=== PATIENT | male | born 1955 | race Caucasian/White ===

== ENCOUNTER → 2016-06-24 | Outpatient (CLI) | payer OTHER ==
[~2016-06-24] MED LIST: ALL100 PO; ASPEC81 PO; ASPI81TA28 PO; ATOR-24 PO; BIOF500C2 PO; BROM0.0911 OPR; COEN100C7 PO; CYAN10005 PO; GLIM2TAB2 PO; IMD/2 PO; KRIL1CAP7 PO; LEVO50TA PO; LEVO50TA6 PO; LISI-729 PO; LPT40 PO; MULT-506 PO; OFLO0.3S OP; OMEG10007 PO; PRED1SUS3 OPR; SACC250C11; [UNRECOGNIZED DRUG - CODE] PO
--- NOTE | 2016-06-24 10:16 | DIAGNOSTIC IMAGING REPORT ---
ABDOMEN COMPLETE (US) CLINICAL HISTORY: CLL COMPARISON STUDY: 01/19/2014, CT scan dated 11/17/2015 FINDINGS: The liver measures 18 cm in length. No focal hepatic masses are visualized. No gallstones are identified. The gallbladder appears sonographically normal. The pancreas appears sonographically normal. There is no ductal dilatation. The common bile duct measures 5 mm. The spleen measures 11 cm in length. No splenic masses are visualized. The 15 mm hypodense lesion described in the spleen on the CT scan dated 11/17/2015 is not visible. The right kidney measures 10.1 cm in length. The left kidney measures 11.4 cm in length. No renal masses are visualized. There is no evidence of hydronephrosis. There is no evidence of abdominal aortic dilatation. IMPRESSION: Normal abdominal ultrasound. Electronically signed by: Ambrsoio Tierney M.D. 06/24/2016 10:14 AM Dictated Date/Time: 06/24/2016 10:12 AM
== END | disposition home or self-care (01) ==
LOC: C.ULTR 09:31
PROVIDERS: ATTEND Internal Medicine Hematology & Oncology
DX: C91.10 Chronic lymphocytic leukemia of B-cell type not having achieved remission (principal)

== ENCOUNTER → 2016-07-04 | Outpatient (CLI) | payer OTHER ==
--- NOTE | 2016-07-04 12:34 | DIAGNOSTIC IMAGING REPORT ---
CHEST 2 VIEWS ROUTINE CLINICAL HISTORY: CLL neoplasm COMPARISON STUDY: 02/23/2016 FINDINGS: Central catheter in superior vena cava. Lungs are considered clear. No evidence for cardiac enlargement. Diaphragms are smooth. IMPRESSION: No acute process. Electronically signed by: Jorge Haney M.D. 07/04/2016 12:32 PM Dictated Date/Time: 07/04/2016 12:32 PM
== END | disposition home or self-care (01) ==
LOC: C.RAD 11:38
PROVIDERS: ATTEND Internal Medicine Hematology & Oncology
DX: C91.10 Chronic lymphocytic leukemia of B-cell type not having achieved remission (principal)

== ENCOUNTER → 2016-08-07 | Day surgery (SDC) | payer OTHER ==
[2016-07-26 10:06] VITALS: BMI 36.0
[2016-07-31 09:46] VITALS: Ht 177.8 cm; Wt 117.7 kg
--- NOTE | 2016-07-31 10:16 | PAT Medication Instructions ---
Service Date Jul 31, 2016. Current Home Medication List Allopurinol (Allopurinol), 1 TAB PO QAM Aspirin (Aspirin EC Low Dose), 81 MG PO QAM Atorvastatin (Lipitor), 40 MG PO QAM Coenzyme Q10 (Ubidecarenone) (Coq10), 1 CAP PO QPM Cyanocobalamin (Vitamin B-12), 1,000 MCG PO QAM Fish Oil (Canterbury-3), 1 CAP PO QPM Glimepiride (Glimepiride), 4 MG PO QAM Idelalisib (Zydelig), 150 MG PO BID Krill Oil (Krill Oil Canterbury-3), 1 CAP PO QAM Levothyroxine Sodium (Levothyroxine Sodium), 50 MCG PO 4XWK Levothyroxine Sodium (Synthroid), 25 MCG PO MWF Lisinopril (Prinivil), 5 MG PO QAM Loperamide Hcl (Imodium), 2 MG PO PRN PRN for Diarrhea Multivitamin (Multivitamin), 1 TAB PO QPM Saccharomyces Boulardii (Probiotic), Unknown Dose Medication Instructions For Your Scheduled Surgery - Hold the following medications as of 07/31/16: Fish Oil (Canterbury-3), 1 CAP PO QPM Coenzyme Q10 (Ubidecarenone) (Coq10), 1 CAP PO QPM Krill Oil (Krill Oil Canterbury-3), 1 CAP PO QAM - Hold the following medications the morning of surgery: Cyanocobalamin (Vitamin B-12), 1,000 MCG PO QAM Glimepiride (Glimepiride), 4 MG PO QAM Lisinopril (Prinivil), 5 MG PO QAM Loperamide Hcl (Imodium), 2 MG PO PRN PRN for Diarrhea Saccharomyces Boulardii (Probiotic), Unknown Dose - Take the following medications the morning of surgery with a sip of water OTHERWISE NOTHING TO EAT OR DRINK AFTER MIDNIGHT: Allopurinol (Allopurinol), 1 TAB PO QAM Aspirin (Aspirin EC Low Dose), 81 MG PO QAM Atorvastatin (Lipitor), 40 MG PO QAM Idelalisib (Zydelig), 150 MG PO BID Levothyroxine Sodium (Synthroid) - Take the following medications as scheduled the night before surgery: Multivitamin (Multivitamin), 1 TAB PO QPM Loperamide Hcl (Imodium), 2 MG PO PRN for Diarrhea Idelalisib (Zydelig), 150 MG PO BID If you have any questions please call us at [phone] or [phone] or [phone]
[~2016-08-07] VITALS: Ht 177.8 cm; Wt 117.7 kg
[~2016-08-07] MED LIST changes: +500ML BSS 0.3ML EPI 1:1000PF IRRIG ONE; +ACETAMINOPHEN 325 MG TAB PO PRN; +AMVISC PLUS 0.8ML SYRINGE INT OCU ONE; +ATROPINE SULFATE 0.1 MG/ML 5ML SYR IV PRN; -BIOF500C2 PO; +BSS FLUSH ONE; +ENDOCOAT 0.85ML SYRINGE INT OCU ONE; +EpHEDrine SULFATE INJ 50 MG/ML AMP IV PRN; +EpINEphrine INJ 1MG/ML AMP 1 MG/ML AMP ONE; +LACTATED RINGER'S 1000ML 500 ML IV SCH; +LIDOCAINE 4% OP SOLN DROP CHARGE ONE; +LIDOCAINE 4% OP SOLN DROP CHARGE OPR SCH; +LIDOCAINE HCL 1% MPF 2 ML VIAL ONE; -LPT40 PO; +MIDAZOLAM HCL 1 MG/ML 2ML VIAL ONE; +MIX: 4ML BSS 1ML EPI 1:1000 PF TOP ONE; +MOXIFLOXACIN OPH SOLN PER DROP CHARGE ONE; +POVIDONE-IODINE OP SOLN 30 ML BTL ONE; +PROPARACAINE 0.5% OP SOLN PER DROP CHARGE OPR SCH; +TOBRAMYCIN/DEXAMETHASONE OPH OINT PER APPLN CHARGE ONE
[2016-08-07] MEDS: PHENYLEPHRINE HCL 2.5% OP SOLN PER DROP CHARGE OPR SCH ×3 (07:52→08:02)
[2016-08-07] MEDS: TROPICAMIDE 1% OP SOLN PER DROP CHARGE OPR SCH ×3 (07:53→08:03)
[2016-08-07] MEDS: CYCLOPENTOLATE HCL 1% OP SOLN PER DROP CHARGE OPR SCH ×3 (07:54→08:05)
[2016-08-07] MEDS: MOXIFLOXACIN OPH SOLN PER DROP CHARGE OPR SCH ×3 (07:55→08:06)
--- NOTE | 2016-08-07 08:06 | History & Physical Bridge - SC ---
H&P Re-Evaluation Bridge Note: I have examined the patient, reviewed the History & Physical and in the interval since the performance of the History & Physical I have noted the following changes of clinical significance: No changes noted
--- NOTE | 2016-08-07 09:20 | [facility] Post Operative Brief Note ---
Immediate Operative Summary Operative Date Aug 07, 2016. Pre-Operative Diagnosis Right Eye Cataract Post-Operative Diagnosis same Procedure(s) Performed Right Cataract Phacoemulsification With Intraocular Lens Implant Surgeon Dr. 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
--- NOTE | 2016-08-07 09:21 | [facility] Operative Report ---
Operative Report Date of Service Aug 07, 2016. Operative Report Phaco with monofocal IOL DATE OF OPERATION: 08/07/16 PREOPERATIVE DIAGNOSIS: Senile nuclear cataract, right eye POSTOPERATIVE DIAGNOSIS: Senile nuclear cataract, right eye PROCEDURE PERFORMED: Phacoemulsification with intraocular lens implantation, right eye SURGEON: Dr. Vicente Cosme ANESTHESIA: Topical with 1% intracameral lidocaine and monitored anesthesia care COMPLICATIONS: None DESCRIPTION OF PROCEDURE: After positively identifying the patient both verbally and by wristband in the preoperative area, the right eye was marked as the operative eye. The patient was then brought back to the operating room by the anesthesia and nursing staff where they were given a drop of Lidocaine and betadine into the operative eye. They were then sterilely prepped and draped in the standard fashion typical for ophthalmic surgery. Steri-strips were placed along the upper eyelids to keep the lashes back, and a lid speculum was placed into the operative eye. At this point, a documented time out was performed with members of the ophthalmology, nursing, and anesthesia staffs all agreeing upon the correct patient, correct location for surgery, correct procedure, and correct type and power of intraocular lens to be implanted. The microscope was then swung into position. First, a paracentesis wound was made using a sideport blade. Then, in sequence, 1% preservative-free lidocaine followed by Endocoat viscoelastic was injected into the anterior chamber. Next , the main incision was made with a keratome blade in triplanar fashion. A sharp cystotome was introduced into the eye and used to create a tear in the anterior capsule, which was directed into a continuous curvilinear capsulorrhexis using Utrata forceps. Hydrodissection was then performed with BSS on a flat-tip cannula. Next, the phacoemulsification handpiece was introduced into the eye and used to remove the nucleus in a [id number] fashion. This was done without complication and then the irrigation-aspiration handpiece was introduced into the eye and used to remove all remaining cortical and epinuclear material. Amvisc was then injected into the anterior chamber as well as into the capsular bag and using the lens injector system, an MX60 18.5 D lens, serial number [id number], and expiration date 11/2018 was injected into the capsular bag and rotated into the correct position. Next, the irrigation- aspiration handpiece was used to remove all remaining Amvisc. BSS was used to hydrate the main wound, and then BSS was injected into the paracentesis site to reach physiologic pressure and then the main wound was checked and found to be watertight. The patient was given drops of Vigamox and Tobradex ointment into the operative eye, and then the surrounding area was cleaned and dried. A clear plastic shield was placed over the eye and the patient was then sat up and taken from the operating room by the anesthesia staff having tolerated the procedure well and suffering no complications. DISPOSITION: The patient was returned to the recovery room in stable condition. I attest to the content of the Intraoperative Record and any orders documented therein. Any exceptions are noted below.
--- NOTE | 2016-08-07 09:22 | Discharge Instructions-SurgCtr ---
Discharge Instructions Date of Service Aug 07, 2016. Visit Reason for Visit: Cataract Right Eye Discharge Discharge Diagnosis / Problem: right cataract Discharge Goals Goal(s): Decrease discomfort, Improve function Medications Stopped Medications Name(s): FISH OIL, KRILL OIL, CO Q10. Activity Recommendations Activity Limitations: as noted below Anesthesia . Post Anesthesia Instructions: If you have had General Anesthesia or IV Sedation: * Do not drive today. * Resume driving when surgeon permits. * Do not make important decisions or sign legal documents today. * Call surgeon for: 1. Temperature elevations greater than 101 degrees F. 2. Uncontrollable pain. 3. Excessive bleeding. 4. Persistent nausea and vomiting. 5. Medication intolerance (nausea, vomiting or rash). * For nausea and vomiting use only clear liquids such as: tea, soda, bouillon until nausea subsides, then gradually increase diet as tolerated. * If you have any concerns or questions, call your surgeon's office. If physician is unavailable and it is an emergency, call 911 or go to the nearest emergency room. . Instructions / Follow-Up Instructions / Follow-Up ACTIVITY RECOMMENDATIONS: * Light activities. * You may walk outside, read, watch television. * You may notice redness on the white part of the eye and some blurry vision - this is normal. MEDICATIONS: Resume previous medications unless instructed otherwise by your surgeon. Start all eye drops at 11:30 am today: * Eye drops (today): Prednisone - one drop in operative eye every 2 hours while awake Ofloxacin - one drop in operative eye every 2 hours while awake Bromfenac - one drop in operative eye daily SPECIAL CARE INSTRUCTIONS: * Tape plastic shield over eye to sleep at night. Call your doctor at with any concerns or problems. FOLLOW UP VISIT: Follow-up with Dr Cosme at [place] office as scheduled. Diet Recommendations Home Diet: no limitations Procedures Procedures Performed: Right Cataract Phacoemulsification With Intraocular Lens Implant Pending Studies Studies pending at discharge: no Medical Emergencies . Who to Call and When: Medical Emergencies: If at any time you feel your situation is an emergency, please call 911 immediately. . Non-Emergent Contact Non-Emergency issues call your: Surgeon . . "Provider Documentation" section prepared by Vicente Cosme.
--- NOTE | 2016-08-07 09:34 | Anesthesia Progress Nt - [facility] ---
Anesthesia Post Op Note Date & Time Aug 07, 2016 at 09:35 Vital Signs Pain Intensity: 0 Vital Signs Past 12 Hours Date Time Temp Pulse Resp B/P Pulse Ox O2 Delivery O2 Flow Rate FiO2 08/07/16 09:24 36.5 68 18 136/88 95 Room Air 08/07/16 07:42 36.5 69 20 135/83 95 Room Air Notes Mental Status: alert / awake / arousable, participated in evaluation Pt Amnestic to Procedure: Yes Nausea / Vomiting: adequately controlled Pain: adequately controlled Airway Patency, RR, SpO2: stable & adequate BP & HR: stable & adequate Hydration State: stable & adequate Anesthetic Complications: no major complications apparent
[2016-08-07 09:46] VITALS: BP 134/82; PULSE 62; O2SAT 95
== END | disposition home or self-care (01) ==
LOC: X.SURG 07:27
PROVIDERS: ATTEND Ophthalmology
DX: H25.11 Age-related nuclear cataract, right eye (principal); E11.9 Type 2 diabetes mellitus without complications; Z86.73 Personal history of transient ischemic attack (TIA), and cerebral infarction without residual deficits

== ENCOUNTER → 2016-09-03 | Outpatient (CLI) | payer OTHER ==
[~2016-09-03] MED LIST changes: -500ML BSS 0.3ML EPI 1:1000PF IRRIG ONE; -ACETAMINOPHEN 325 MG TAB PO PRN; -AMVISC PLUS 0.8ML SYRINGE INT OCU ONE; -ASPEC81 PO; -ATROPINE SULFATE 0.1 MG/ML 5ML SYR IV PRN; -BSS FLUSH ONE; -ENDOCOAT 0.85ML SYRINGE INT OCU ONE; -EpHEDrine SULFATE INJ 50 MG/ML AMP IV PRN; -EpINEphrine INJ 1MG/ML AMP 1 MG/ML AMP ONE; -LACTATED RINGER'S 1000ML 500 ML IV SCH; -LIDOCAINE 4% OP SOLN DROP CHARGE ONE; -LIDOCAINE 4% OP SOLN DROP CHARGE OPR SCH; -LIDOCAINE HCL 1% MPF 2 ML VIAL ONE; -MIDAZOLAM HCL 1 MG/ML 2ML VIAL ONE; -MIX: 4ML BSS 1ML EPI 1:1000 PF TOP ONE; -MOXIFLOXACIN OPH SOLN PER DROP CHARGE ONE; -OFLO0.3S OP; -POVIDONE-IODINE OP SOLN 30 ML BTL ONE; -PROPARACAINE 0.5% OP SOLN PER DROP CHARGE OPR SCH; -TOBRAMYCIN/DEXAMETHASONE OPH OINT PER APPLN CHARGE ONE
--- NOTE | 2016-09-03 16:51 | DIAGNOSTIC IMAGING REPORT ---
CHEST 2 VIEWS ROUTINE CLINICAL HISTORY: ACUTE BRONCHITIS dyspnea COMPARISON STUDY: 07/04/2016 FINDINGS: The bones soft tissues and hemidiaphragms are normal. The cardiomediastinal silhouette is normal. The lungs are clear. The pulmonary vasculature is normal. Central catheter remains in superior vena cava IMPRESSION: Negative chest. Electronically signed by: Jorge Haney M.D. 09/03/2016 4:49 PM Dictated Date/Time: 09/03/2016 4:49 PM
== END | disposition home or self-care (01) ==
LOC: C.RAD1850 16:36
PROVIDERS: ATTEND Internal Medicine
DX: J20.9 Acute bronchitis, unspecified (principal)

== ENCOUNTER → 2016-09-05 | Day surgery (SDC) | payer OTHER ==
[2016-08-16 12:52] VITALS: Ht 177.8 cm; Wt 115.5 kg
[~2016-09-05] VITALS: Ht 177.8 cm; Wt 115.5 kg
[~2016-09-05] MED LIST changes: +CYCLOPENTOLATE HCL 1% OP SOLN PER DROP CHARGE OPL SCH; +LACTATED RINGER'S 1000ML 500 ML IV SCH; +LIDOCAINE 4% OP SOLN DROP CHARGE OPL SCH; +MOXIFLOXACIN OPH SOLN PER DROP CHARGE OPL SCH; +PHENYLEPHRINE HCL 2.5% OP SOLN PER DROP CHARGE OPL SCH; +PROPARACAINE 0.5% OP SOLN PER DROP CHARGE OPL SCH; +TROPICAMIDE 1% OP SOLN PER DROP CHARGE OPL SCH
== END | disposition home or self-care (01) ==
LOC: EDSTATUS 09-04 11:30 → C.PAT 12:38
PROVIDERS: ATTEND Ophthalmology
DX: H26.9 Unspecified cataract (principal)

== ENCOUNTER → 2016-10-30 | Outpatient (CLI) | payer OTHER ==
[~2016-10-30] MED LIST changes: -CYCLOPENTOLATE HCL 1% OP SOLN PER DROP CHARGE OPL SCH; -LACTATED RINGER'S 1000ML 500 ML IV SCH; -LIDOCAINE 4% OP SOLN DROP CHARGE OPL SCH; -MOXIFLOXACIN OPH SOLN PER DROP CHARGE OPL SCH; -PHENYLEPHRINE HCL 2.5% OP SOLN PER DROP CHARGE OPL SCH; -PROPARACAINE 0.5% OP SOLN PER DROP CHARGE OPL SCH; -TROPICAMIDE 1% OP SOLN PER DROP CHARGE OPL SCH
--- NOTE | 2016-10-30 08:15 | DIAGNOSTIC IMAGING REPORT ---
ABDOMEN COMPLETE (US) CLINICAL HISTORY: Chronic lymphocytic leukemia. COMPARISON STUDY: CT of the abdomen and pelvis November 17, 2015 and abdominal ultrasound June 24, 2016. FINDINGS: Liver morphology is normal. No hepatic lesions are identified. The size of the liver is at the upper limits of normal. The size of spleen is normal, measuring 11.5 cm in maximal dimension. The gallbladder is normal. The pancreas is sonographically normal. There is no biliary ductal dilatation. The right kidney measures 10.3 x 5 x 5.7 cm and the left measures 11.2 x 5.2 x 6.2 cm. There is no hydronephrosis. The caliber of the abdominal aorta is normal. There is no ascites. IMPRESSION: Unremarkable abdominal ultrasound. Electronically signed by: Pito Curiel M.D. 10/30/2016 8:14 AM Dictated Date/Time: 10/30/2016 8:13 AM
== END | disposition home or self-care (01) ==
LOC: C.ULTR 07:37
PROVIDERS: ATTEND Internal Medicine Hematology & Oncology
DX: C91.10 Chronic lymphocytic leukemia of B-cell type not having achieved remission (principal)

== ENCOUNTER → 2017-01-23 | Outpatient (CLI) | payer OTHER ==
--- NOTE | 2017-01-23 11:31 | DIAGNOSTIC IMAGING REPORT ---
(CHEST) THORAX WITHOUT CT DOSE: 2297.40 mGy.cm HISTORY: Lymphoma. TECHNIQUE: Multiaxial CT images of the chest were performed without contrast. A dose lowering technique was utilized adhering to the principles of ALARA. COMPARISON: Chest CT 11/17/2015. FINDINGS: No change in the multiple subcentimeter bilateral axillary lymph nodes. These do not meet CT criteria for pathologic involvement. There is no mediastinal or hilar lymphadenopathy. The visualized liver, spleen, and adrenal glands are unremarkable. The heart is normal in size. No pleural or pericardial effusions. Coronary artery calcifications are again noted. Normal caliber thoracic aorta. Left subclavian catheter terminates in the distal SVC. No suspicious lytic or blastic osseous lesions. No pneumothorax. The central airways are patent. Calcified granuloma within the right lower lobe, unchanged. No suspicious bone nodules. No new focal lung consolidations. A 2 mm nodule within the base of the right lower lobe. This is of doubtful clinical significance given its small size. IMPRESSION: 1. No lymphadenopathy within the chest. No change in the subcentimeter bilateral axillary lymph nodes which do not meet CT criteria for pathologic involvement. 2. A 2 mm nodule within the base of the right lower lobe. This is of doubtful clinical significance given its small size. This bears watching on future examinations. Electronically signed by: Eron Abdalla M.D. 01/23/2017 11:30 AM Dictated Date/Time: 01/23/2017 11:24 AM
--- NOTE | 2017-01-23 11:37 | DIAGNOSTIC IMAGING REPORT ---
ABD/PELVIS ORAL CONT ONLY HISTORY: 61 years-old Male CLL this is a follow-up exam. History of renal insufficiency and lymphoma. COMPARISON: CT abdomen and pelvis 11/17/2015 TECHNIQUE: Multiple axial CT images of the abdomen and pelvis were obtained following the administration of oral contrast only. A dose lowering technique was used consistent with the principals of ZANA. FINDINGS: The imaged lung bases are clear with the exception of a calcified granuloma of the lateral basal segment right lower lobe. There is no pneumoperitoneum identified. Inferior cardiac chambers are unremarkable with coronary arterial calcifications noted. The liver, gallbladder, adrenal glands are unremarkable. There is moderate pancreatic atrophy. The previously described lesion of the subserosal posterior spleen is again seen, more apparent on prior study measuring up to 1.2 cm. This is again nonspecific however statistically benign. The bilateral kidneys, ureters, urinary bladder and prostate are unremarkable. There is mild atherosclerotic plaquing of the abdominal aorta. Alberto hepatis adenopathy is seen, 2.5 x 0.9 cm, previously 2.9 x 1.2 cm. Left periaortic lymph node measuring 1.2 x 1.2 cm is unchanged from prior study, previously 1.2 x 1.1 cm. Lymph node of the right lower mesentery just proximal to the aortic bifurcation measures 0.6 x 1.3 cm, previously 1.5 x 1.2 cm. No new bulky adenopathy is identified. There is no bowel obstruction. Somewhat a haustral morphology of the sigmoid colon is noted without inflammatory stranding. Soft tissues are unremarkable. Mixed lucent and sclerotic foci of the left iliac wing are again seen measuring up to 1.6 cm, unchanged from comparison are likely benign. There is 4 mm anterolisthesis L4 on L5, likely secondary to advanced facet arthropathy. IMPRESSION: 1. No acute intra-abdominal or intrapelvic abnormality identified. 2. Stable exam from study dated 11/17/2015 without new adenopathy identified. The above report was generated using voice recognition software. It may contain grammatical, syntax or spelling errors. Electronically signed by: Ifeanyi Anderson M.D. 01/23/2017 11:36 AM Dictated Date/Time: 01/23/2017 11:27 AM
== END | disposition home or self-care (01) ==
LOC: C.CTS 10:35
PROVIDERS: ATTEND Nurse Practitioner Family
DX: C91.10 Chronic lymphocytic leukemia of B-cell type not having achieved remission (principal)

== ENCOUNTER → 2017-07-01 | Outpatient (CLI) | payer OTHER ==
[2017-07-01 10:53] LABS: BASO % 0.9 %; BASO ABS # 0.04 K/uL (0-0.2); EOS % 4.5 %; EOS ABS # 0.21 K/uL (0-0.5); HEMATOCRIT 37.2 % (42-52); HEMOGLOBIN 12.8 g/dL (14.0-18.0); IG# 0.02 K/uL (0.00-0.02); LYMPH % 14.3 %; LYMPH ABS # 0.67 K/uL (1.2-3.4); MEAN CELL VOLUME 87.5 fL (80-100); MEAN CORPUSCULAR HEMOGLOBIN 30.1 pg (25-34); MEAN CORPUSCULAR HGB CONC 34.4 g/dl (32-36); MEAN PLATELET VOLUME 10.1 fL (7.4-10.4); MONO % 6.4 %; NEUT % 73.5 %; NEUT ABS # 3.45 K/uL (1.4-6.5); PLATELET COUNT 155 K/uL (130-400); RED CELL DISTRIBUTION WIDTH SD 48.6 fL (36.4-46.3); WHITE BLOOD COUNT 4.69 K/uL (4.8-10.8)
[2017-07-01 11:28] LABS: ALBUMIN 3.6 gm/dl (3.4-5.0); ALKALINE PHOSPHATASE 100 U/L (45-117); ALT/SGPT 36 U/L (12-78); AST/SGOT 23 U/L (15-37); BLOOD UREA NITROGEN 32 mg/dl (7-18); CALCIUM 8.7 mg/dl (8.5-10.1); CARBON DIOXIDE 25 mmol/L (21-32); CHOLESTEROL 115 mg/dl (0-200); CREATININE 1.79 mg/dl (0.60-1.40); GLUCOSE 113 mg/dl (70-99); LDL CHOLESTEROL CALCULATED 59 mg/dl; POTASSIUM 4.4 mmol/L (3.5-5.1); SODIUM 139 mmol/L (136-145); TOTAL PROTEIN 7.3 gm/dl (6.4-8.2)
[2017-07-01 11:33] LABS: HEMOGLOBIN A1C 6.7 % (4.5-5.6)
== END | disposition home or self-care (01) ==
LOC: C.LAB 15:28
PROVIDERS: ATTEND Internal Medicine
DX: I63.9 Cerebral infarction, unspecified (principal)

== ENCOUNTER → 2017-12-18 | Outpatient (CLI) | payer OTHER ==
--- NOTE | 2017-12-18 10:11 | DIAGNOSTIC IMAGING REPORT ---
(CHEST) THORAX WITHOUT CLINICAL HISTORY: 62 years-old Male presenting with CLL. TECHNIQUE: Multidetector CT imaging of the chest was performed without the use of intravenous contrast. IV contrast: None. A dose lowering technique was used consistent with the principles of ALARA (as low as reasonably achievable). COMPARISON: 01/23/2017. CT DOSE (mGy.cm): The estimated cumulative dose is 1882.61. 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 On soft tissue windows, normal thyroid and thoracic inlet. Left subclavian Mediport terminates in the lower SVC. Bilateral gynecomastia. Few subcentimeter mediastinal lymph nodes, unchanged. These measure up to 5 mm in the short axis, previously 7 mm. No pathologically enlarged axillary, supraclavicular, hilar, or mediastinal lymph nodes. Atherosclerosis of the aorta. Normal heart size. Coronary artery and aortic valve calcification. No pericardial or pleural effusion. Upper abdomen normal. On lung windows, previous seen noted punctate solid nodule in the right lower lobe is not apparent. Calcified granuloma in the right lower lobe. No new pulmonary nodule. Airways patent. On bone windows, degenerative changes of the spine. IMPRESSION: 1. Stable to slight increased prominence of left axillary lymph nodes. These still do not meet CT criteria for pathologic enlargement. 2. No pulmonary infiltrate or nodule. No acute intrathoracic pathology. Electronically signed by: Vinnie Winn M.D. 12/18/2017 10:10 AM Dictated Date/Time: 12/18/2017 10:02 AM
--- NOTE | 2017-12-18 10:22 | DIAGNOSTIC IMAGING REPORT ---
ABD/PELVIS ORAL CONT ONLY CLINICAL HISTORY: 62 years-old Male presenting with CLL. TECHNIQUE: Multidetector CT of the abdomen and pelvis was performed after the administration of oral contrast only. IV contrast: None. A dose lowering technique was used consistent with the principles of ALARA (as low as reasonably achievable). COMPARISON: 01/23/2017. CT DOSE (mGy.cm): The estimated cumulative dose is 1882.61 inclusive of the chest CT. FINDINGS: Prop Cutter topogram: Unremarkable. Lung bases: Lungs and pleural spaces clear. Normal heart size. Coronary artery and aortic valve calcification. No pericardial or pleural effusion. Liver: Normal morphology. Normal density. Biliary: No gross biliary ductal dilatation allowing for noncontrast technique. Normal gallbladder. Pancreas: Moderate parenchymal atrophy. Spleen: Normal noncontrast appearance. Adrenal glands: Normal noncontrast appearance. Kidneys and ureters: Normal noncontrast appearance. No nephrolithiasis. No hydronephrosis. Normal ureters. Bladder: Circumferential bladder wall thickening. Pelvic organs: Prostate enlargement likely secondary to benign prostatic hyperplasia. Bowel: Normal appendix. No bowel obstruction. Feces in distal small bowel suggest delayed transit. Peritoneal cavity: No free fluid or intraperitoneal gas. Lymph nodes: Prominent left periaortic and and aortocaval lymph nodes. These measure up to 11 mm in the short axis (series 7 image 174). Several smaller subcentimeter lymph nodes have increased by 1 to 2 mm in short axis. No new sites of enlarged or borderline enlarged lymph nodes. Stable subcentimeter mesenteric lymph nodes. These have slightly increased in size since the prior exam Vasculature: Atherosclerosis of the normal caliber abdominal aorta. Abdominal wall: Small fat-containing umbilical hernia. Musculoskeletal: Degenerative changes of the spine. IMPRESSION: 1. Slight increased size of retroperitoneal lymph nodes, the vast majority which are subcentimeter and not pathologically enlarged by CT size criteria. However, this remains somewhat suspicious. Consider shorter interval follow-up. Electronically signed by: Vinnie Winn M.D. 12/18/2017 10:21 AM Dictated Date/Time: 12/18/2017 10:13 AM
== END | disposition home or self-care (01) ==
LOC: C.CTS 09:34
PROVIDERS: ATTEND Internal Medicine Hematology & Oncology
DX: C91.10 Chronic lymphocytic leukemia of B-cell type not having achieved remission (principal)

== ENCOUNTER 2019-01-16 15:49 | Inpatient (IN) ==
[2019-01-16] MEDS ORDERED: SODIUM CHLORIDE 0.9% 1000ML 1,000 ML IV ONE (16:07)
[2019-01-16 17:08] LABS: Hematocrit (blood only) 30.3 % (42-52); Hemoglobin 10.4 g/dL (14.0-18.0); Mean Corpuscular Hgb Conc 34.3 g/dL (32-36); Mean Corpuscular Volume 84.6 fL (80-100); Mean Platelet Volume 9.9 fL (7.4-10.4); Platelet Count 111 K/uL (130-400); RDW Coefficient of Variation 14.1 % (11.5-14.5); RDW Standard Deviation 43.6 fL (36.4-46.3); Red Blood Count 3.58 M/uL (4.7-6.1); White Blood Count 6.78 K/uL (4.8-10.8)
[2019-01-16 17:19] LABS: INR 1.2 (0.9-1.1); Partial Thromboplastin Ratio 1.1; Partial Thromboplastin Time 28.8 Seconds (21.0-31.0); Prothrombin Time 12.4 Seconds (9.0-12.0)
[2019-01-16 17:27] LABS: Albumin Level 2.7 gm/dl (3.4-5.0); BUN Creatinine Ratio 17.4 (10-20); C Reactive Protein 12.4 mg/dl (0-0.29); Calcium 8.2 mg/dl (8.5-10.1); Creatinine Clr Calc Pharmacy 39.4 ml/min; Est GFR (African American) 30.9; Est GFR (Non-African American) 26.7; Magnesium 2.1 mg/dl (1.8-2.4); Potassium 3.6 mmol/L (3.5-5.1)
[2019-01-16 17:32] LABS: Albumin Globulin Ratio 0.7 (0.9-2); Bilirubin,Total 0.8 mg/dl (0.2-1); Globulin 3.8 gm/dl (2.5-4.0); Total Protein 6.5 gm/dl (6.4-8.2); Troponin I 0.019 ng/ml (0-0.045)
[2019-01-16 17:48] LABS: Poikilocytosis Present
[2019-01-16 17:55] LABS: ALC (manual) 6.24 K/uL (1.2-3.4); Basophils # (manual) 0.06 K/uL (0-0.2); Basophils % (manual) 0.9 %; Eosinophils # (manual) 0.06 K/uL (0-0.5); Eosinophils % (manual) 0.9 %; Lymphocytes # (manual) 6.24 K/uL (1.2-3.4); Monocytes # (manual) 0.12 K/uL (0.11-0.59); Monocytes % (manual) 1.8 %; Neutrophils % (manual) 4.4 %
--- NOTE | 2019-01-16 17:56 | XRay Report ---
XR chest 1V portable CLINICAL HISTORY: Sepsis COMPARISON STUDY: 10/23/2015 FINDINGS: The heart is normal in size. There is no failure. There is no focal pulmonary consolidation . There are no pleural effusions. There is a left subclavian A-Port catheter present.[ IMPRESSION: No active disease in the chest. Electronically signed by: Ambrosio Tierney M.D. 01/16/2019 5:55 PM
[2019-01-16] MEDS ORDERED: CEFEPIME 2,000 MG/20 ML VIAL IV STA (17:59)
--- NOTE | 2019-01-16 18:06 | Emergency Department Note ---
Entered by Mary Monroy acting as a scribe for Rolo Delacruz DO History of Present Illness General Chief complaint: Fever Stated complaint: FEVER X6, HAS CANCER, DIARRHEA Time Seen by Provider: 01/16/19 15:56 Source: patient and family Mode of arrival: ambulatory Limitations: no limitations History of Present Illness Provider complaint: fever Onset (ago): day(s) 6 Location: head Pain Consistency: + other (worsening) Maximum Pain Intensity: 5 Relieved By: not by medication (Tylenol) Associated symptoms: + cough and + other (tired, lack of sleep); no chest pain, no rash and no shortness of breath Treatments prior to arrival: other (Tylenol) The patient is a 63 year old male who presents to the ED with complaints of a worsening fever that began 6 days ago. The patient states that he has been running a low-grade fever of 100.2-100.7. The patient states that his fever has been as high as 102.9 this past week. The patient states that he has been very tired and is getting no sleep. The patient states that he has a nonproductive cough which is a side effect of the medication he is taking for his CLL. The patient states that he has not eaten in 3 days. He reports that he was supposed to get his port flushed by Dr. Lawton, [facility], 4 days ago but he missed the appointment because of his fever. The patient states that the port in his left upper chest is not tender and not red. The patient states that he takes care of his daughter during the day but she has no recently been sick. The patient denies a history of heart murmurs. The patient denies chest pain and shortness of breath. The patient states that he took Tylenol about 8 hours ago with no relief. Home Medications Home Medications Medication Instructions Recorded Confirmed Type aspirin [Aspirin Low Dose] 81 mg PO QAM 02/17/18 01/16/19 History atorvastatin 40 mg PO QAM 02/17/18 01/16/19 History coenzyme Q10 [Co Q-10] 100 mg PO QPM 02/17/18 01/16/19 History cyanocobalamin (vitamin B-12) 1,000 mcg PO PM 02/17/18 01/16/19 History glimepiride 4 mg PO QAM 02/17/18 01/16/19 History ishpq-xw-7-cqv-leo-ldtudtm-ast 1 cap PO QAM 02/17/18 01/16/19 History [krill oil] lisinopril 5 mg PO QAM 02/17/18 01/16/19 History loperamide 2 mg PO DAILY PRN 02/17/18 01/16/19 History multivitamin 1 tab PO QPM 02/17/18 01/16/19 History acetaminophen [Tylenol Extra 500 mg PO Q6H PRN 01/16/19 01/16/19 History Strength] idelalisib [Zydelig] 100 mg PO BID 01/16/19 01/16/19 History levothyroxine 25 mcg PO 3XWK 01/16/19 01/16/19 History levothyroxine 50 mcg PO QAM 01/16/19 01/16/19 History Allergies Allergy/AdvReac Type Severity Reaction Status Date / Time No Known Allergies Allergy Verified 01/16/19 17:18 Past Med/Surg History Medical History CLL (chronic lymphocytic leukemia) Cataract, left eye Chronic kidney disease STAGE 2 Diabetes mellitus, type 2 History of anesthesia reaction WAS AWAKE FOR APORT PLACEMENT, NEEDS MORE ANESTHESIA? Hyperlipidemia Hypertension Hypothyroidism Stroke 2015--SPEECH IS SLIGHTLY SLOWER Tinnitus of both ears Surgical History H/O right cataract extraction History of tooth extraction WISDOM TEETH History of vascular access device L CHEST Family History Father Family history of diabetes mellitus TIA (transient ischemic attack) Social History Preferred Language: Luxembourger Communication Ability: Effective Cigar Packer And Sorter Required: No Beliefs That Will Affect Care: None Current Living Situation: Family Feels Safe at Home: Yes Smoking Status: Never smoker Second Hand Exposure: No ; Hx Alcohol Use: No Hx Substance Use: No Review of Systems See HPI for pertinent positives & negatives. and A total of 10 systems reviewed and were otherwise negative Physical Exam Vital Signs Vital Signs - 24 hr 01/16/19 15:52 01/16/19 17:07 01/16/19 17:20 Temperature 37.1 C Temperature Source Oral Sepsis Recent Fever Within 48 Hours Yes Sepsis New/Unexplained Change in Mental Status No Sepsis Action Taken by Nursing No Action Required Pulse Rate 93 H 80 Pulse Rate [Left Finger] Pulse Rate from SpO2 Sensor Pulse Rhythm Regular Pulse Strength Normal Respiratory Rate 20 21 Respiratory Effort / Characteristics Non-Labored Spontaneous Respiratory Depth Normal Respiratory Pattern Regular Blood Pressure 128/76 Blood Pressure [Right Arm] Blood Pressure Mean 93 Blood Pressure Mean [Right Arm] Blood Pressure Position Sitting Pulse Oximetry 96 96 Oxygen Delivery Method Room Air Room Air 01/16/19 17:30 01/16/19 17:31 01/16/19 17:32 Temperature Temperature Source Sepsis Recent Fever Within 48 Hours Sepsis New/Unexplained Change in Mental Status Sepsis Action Taken by Nursing Pulse Rate 83 79 Pulse Rate [Left Finger] 84 Pulse Rate from SpO2 Sensor 79 Pulse Rhythm Pulse Strength Respiratory Rate 20 24 20 Respiratory Effort / Characteristics Respiratory Depth Respiratory Pattern Blood Pressure 125/62 Blood Pressure [Right Arm] 125/62 Blood Pressure Mean 83 Blood Pressure Mean [Right Arm] 83 Blood Pressure Position Pulse Oximetry 99 98 Oxygen Delivery Method Room Air 01/16/19 17:52 01/16/19 18:00 Temperature Temperature Source Sepsis Recent Fever Within 48 Hours Sepsis New/Unexplained Change in Mental Status Sepsis Action Taken by Nursing Pulse Rate 78 80 Pulse Rate [Left Finger] Pulse Rate from SpO2 Sensor 79 80 Pulse Rhythm Pulse Strength Respiratory Rate 20 21 Respiratory Effort / Characteristics Respiratory Depth Respiratory Pattern Blood Pressure 125/77 122/63 Blood Pressure [Right Arm] Blood Pressure Mean 93 82 Blood Pressure Mean [Right Arm] Blood Pressure Position Pulse Oximetry 100 99 Oxygen Delivery Method GENERAL: Patient is awake, alert, and in no acute distress.Patient is resting comfortably and showing no signs of anxiety EYES: The conjunctivae are clear. The pupils are round and reactive. EARS, NOSE, MOUTH AND THROAT: The nose is without any evidence of any deformity. Mucous membranes are moist.Tongue is midline NECK: The neck is nontender and supple. RESPIRATORY: Normal respiratory effort is noted. There is no evidence of wheezing rhonchi or rales to auscultation. CARDIOVASCULAR: Regular rate and rhythm noted. There no murmurs rubs or gallops normal S1 normal S2 GASTROINTESTINAL: The abdomen is soft. Bowel sounds are present in all quadrants. Abdomen is nontender. MUSCULOSKELETAL/EXTREMITIES: There is no evidence of gross deformity. Full range of motion is noted in the hips and shoulders. SKIN: There is no obvious evidence of any rash. There are no petechiae, pallor or cyanosis noted. NEUROLOGIC: Patient is awake alert and oriented x3. Course 1606: Past medical records reviewed. The patient was evaluated in room B12B. A complete history and physical exam was performed. 1752: I reevaluated the patient at this time and he stated hat he still feels ill. I discussed the test results and treatment plan with the patient. He verbally agreed and understood. 1804: I discussed the patient's case with Dr. Aidee Gill, [facility]. She agreed to evaluate the patient for further management. Consultations Consultation #1: I discussed the patient's case with Dr. Aidee Gill, [facility]. She agreed to evaluate the patient for further management. Time: 18:40 Administered Medications Acetaminophen (Tylenol) 650 mg PO Q4H PRN PRN Reason: pain/fever Stop: 02/15/19 19:29 Last Admin: 01/16/19 23:32 Dose: 650 mg Documented by: [id number] Cyanocobalamin (Vitamin B-12) 1,000 mcg PO QPM BELLA Stop: 02/15/19 20:59 Last Admin: 01/16/19 21:59 Dose: 1,000 mcg Documented by: [id number] Heparin Sodium (Porcine) (Heparin Sodium (Porcine)) 5,000 units SQ Q8 BELLA Stop: 02/15/19 21:59 Last Admin: 01/16/19 22:00 Dose: Not Given Documented by: [id number] Potassium Chloride/Sodium Chloride (Normal Saline W/20 Meq Kcl) 20 meq in 1,000 mls @ 120 mls/hr IV .Q8H20M BELLA Stop: 02/15/19 19:59 Last Admin: 01/16/19 20:07 Dose: 120 mls/hr Documented by: [id number] Idelalisib (Zydelig) 1 ea PO BID@1000,2200 BELLA Stop: 02/15/19 21:59 Last Admin: 01/16/19 22:01 Dose: 1 ea Documented by: [id number] Cosigned by: [id number] Insulin Aspart (Novolog Flexpen) 0 units SC ACHS BELLA Stop: 02/15/19 20:59 Last Admin: 01/16/19 21:05 Dose: Not Given Documented by: [id number] Cosigned by: [id number] Miscellaneous (Carbohydrates For Hypoglycemia) 15 - 30 gm PO UD PRN PRN Reason: Hypoglycemia Treatment Stop: 02/15/19 19:29 Last Admin: 01/16/19 20:05 Dose: 15 gm Documented by: [id number] Admin: 01/16/19 19:45 Dose: 15 gm Documented by: [id number] Multivitamins (Multivitamin Tab) 1 tab PO QPM BELLA Stop: 02/15/19 20:59 Last Admin: 01/16/19 21:59 Dose: 1 tab Documented by: [id number] Discontinued Medications Sodium Chloride (Nss 1000ml) 1,000 mls @ 999 mls/hr IV .Q1H1M ONE Stop: 01/16/19 17:07 Last Infusion: 01/16/19 18:09 Dose: 0 mls/hr Documented by: [id number] Admin: 01/16/19 17:05 Dose: 999 mls/hr Documented by: [id number] Cefepime HCl (Maxipime) 2,000 mg in 20 mls @ 5 mls/min IV NOW STA; Protocol Stop: 01/16/19 18:02 Last Admin: 01/16/19 18:10 Dose: 5 mls/min Documented by: [id number] Vancomycin HCl 2,750 mg/ (Sodium Chloride) 555 mls @ 200 mls/hr IV ONE ONE Stop: 01/16/19 22:31 Last Infusion: 01/17/19 00:07 Dose: 0 mls/hr Documented by: [id number] Admin: 01/16/19 20:07 Dose: 200 mls/hr Documented by: [id number] Medical Decision Making Differential Diagnosis Differential diagnosis: Etiologies such as viral syndrome, otitis, pharyngitis, pneumonia, influenza, meningitis, urinary tract infection, septic arthritis, soft tissue infectious process, intra-abdominal process, sepsis, bacteremia, as well as others were entertained. Medical Records Attestation: I reviewed the patient's medical records. Home Medications Current Medication List: was personally reviewed by me Laboratory Data Attestation: I reviewed the patient's lab results. Result diagrams: 01/16/19 16:55 01/16/19 16:55 Lab Results 01/16/19 01/16/19 01/16/19 Range/Units 16:55 16:55 16:55 WBC 6.78 (4.8-10.8) K/uL RBC 3.58 L (4.7-6.1) M/uL Hgb 10.4 L (14.0-18.0) g/dL Hct 30.3 L (42-52) % MCV 84.6 (80-100) fL MCH 29.1 (25-34) pg MCHC 34.3 (32-36) g/dL RDW Std Deviation 43.6 (36.4-46.3) fL RDW Coeff of Leonela 14.1 (11.5-14.5) % Plt Count 111 L (130-400) K/uL MPV 9.9 (7.4-10.4) fL Neutrophils % (Manual) 4.4 % Lymphocytes % (Manual) 92.0 % Monocytes % (Manual) 1.8 % Eosinophils % (Manual) 0.9 % Basophils % (Manual) 0.9 % Neutrophils # (Manual) 0.30 L (1.4-6.5) K/uL Total Absolute Neuts 0.30 L* (1.4-6.5) K/uL Lymphocytes # (Manual) 6.24 H (1.2-3.4) K/uL Total Abs Lymphocytes 6.24 H (1.2-3.4) K/uL Monocytes # (Manual) 0.12 (0.11-0.59) K/uL Eosinophils # (Manual) 0.06 (0-0.5) K/uL Basophils # (Manual) 0.06 (0-0.2) K/uL Poikilocytosis Present ESR 57 H (0-14) mm/hr PT 12.4 H (9.0-12.0) Seconds INR 1.2 H (0.9-1.1) APTT 28.8 (21.0-31.0) Seconds PTT Ratio 1.1 Sodium (136-145) mmol/L Potassium (3.5-5.1) mmol/L Chloride (98-107) mmol/L Carbon Dioxide (21-32) mmol/L Anion Gap (3-11) BUN (7-18) mg/dl Creatinine (0.6-1.4) mg/dl Est Cr Clr Drug Dosing ml/min Est GFR ( Amer) Est GFR (Non-Af Amer) BUN/Creatinine Ratio (10-20) Glucose (70-99) mg/dl Lactate (0.4-2.0) mmol/L Calcium (8.5-10.1) mg/dl Magnesium (1.8-2.4) mg/dl Total Bilirubin (0.2-1) mg/dl AST (15-37) U/L ALT (12-78) U/L Alkaline Phosphatase (45-117) U/L Troponin I (0-0.045) ng/ml C-Reactive Protein (0-0.29) mg/dl Total Protein (6.4-8.2) gm/dl Albumin (3.4-5.0) gm/dl Globulin (2.5-4.0) gm/dl Albumin/Globulin Ratio (0.9-2) Procalcitonin (0-0.5) ng/ml 01/16/19 01/16/19 01/16/19 Range/Units 16:55 16:55 16:55 WBC (4.8-10.8) K/uL RBC (4.7-6.1) M/uL Hgb (14.0-18.0) g/dL Hct (42-52) % MCV (80-100) fL MCH (25-34) pg MCHC (32-36) g/dL RDW Std Deviation (36.4-46.3) fL RDW Coeff of Leonela (11.5-14.5) % Plt Count (130-400) K/uL MPV (7.4-10.4) fL Neutrophils % (Manual) % Lymphocytes % (Manual) % Monocytes % (Manual) % Eosinophils % (Manual) % Basophils % (Manual) % Neutrophils # (Manual) (1.4-6.5) K/uL Total Absolute Neuts (1.4-6.5) K/uL Lymphocytes # (Manual) (1.2-3.4) K/uL Total Abs Lymphocytes (1.2-3.4) K/uL Monocytes # (Manual) (0.11-0.59) K/uL Eosinophils # (Manual) (0-0.5) K/uL Basophils # (Manual) (0-0.2) K/uL Poikilocytosis ESR (0-14) mm/hr PT (9.0-12.0) Seconds INR (0.9-1.1) APTT (21.0-31.0) Seconds PTT Ratio Sodium 139 (136-145) mmol/L Potassium 3.6 (3.5-5.1) mmol/L Chloride 108 H (98-107) mmol/L Carbon Dioxide 25 (21-32) mmol/L Anion Gap 6.0 (3-11) BUN 43 H (7-18) mg/dl Creatinine 2.49 H (0.6-1.4) mg/dl Est Cr Clr Drug Dosing 39.4 ml/min Est GFR ( Amer) 30.9 Est GFR (Non-Af Amer) 26.7 BUN/Creatinine Ratio 17.4 (10-20) Glucose 56 L (70-99) mg/dl Lactate 0.6 (0.4-2.0) mmol/L Calcium 8.2 L (8.5-10.1) mg/dl Magnesium 2.1 (1.8-2.4) mg/dl Total Bilirubin 0.8 (0.2-1) mg/dl AST 54 H (15-37) U/L ALT 61 (12-78) U/L Alkaline Phosphatase 71 (45-117) U/L Troponin I 0.019 (0-0.045) ng/ml C-Reactive Protein 12.40 H (0-0.29) mg/dl Total Protein 6.5 (6.4-8.2) gm/dl Albumin 2.7 L (3.4-5.0) gm/dl Globulin 3.8 (2.5-4.0) gm/dl Albumin/Globulin Ratio 0.7 L (0.9-2) Procalcitonin 0.30 (0-0.5) ng/ml Imaging Data Radiologist's Impression: Radiology results as stated below per my review and the radiologist's interpretation: XR chest 1V portable CLINICAL HISTORY: Sepsis COMPARISON STUDY: 10/23/2015 FINDINGS: The heart is normal in size. There is no failure. There is no focal pulmonary consolidation. There are no pleural effusions. There is a left subclavian A-Port catheter present.[ IMPRESSION: No active disease in the chest. Electronically signed by: Ambrosio Tierney M.D. 01/16/2019 5:55 PM ECG Data Attestation: I personally reviewed and interpreted this ECG as follows: Indication: other (fever ) Rate (beats per minute): 79 Rhythm: normal sinus Findings: no PAC, no PVC, no ST depression, no ST elevation, no acute ischemic change and no ectopy Comparison ECG Date: from (07/31/16) Change: no significant change Blood Pressure Blood Pressure Findings: Normal blood pressure Blood Pressure Disposition: did not require urgent referral MDM Narrative The patient is a 63-year-old male who presented to the emergency department for an evaluation of fever. The patient has a history of CLL and is currently being treated for this condition. The patient has been taking Tylenol for fever. He states he has not been eating or drinking as well as usual. No definite source for his fever could be found. The patient was treated with IV fluids because of an elevated creatinine compared to baseline. He was also given IV antibio tics for neutropenia once his CBC differential was returned. I discussed the patient's laboratory and radiographic studies with him. Given his findings I also discussed his case with the on-call [facility] hospitalist group. They have agreed to evaluate the patient in the emergency department for further management and disposition. Impression & Plan Neutropenic fever, Acute kidney injury, Anemia, Thrombocytopenia Discharge Plan Visit Data *Final* Discharge Date/Time: 01/16/19 19:44 Chief Complaint: Fever Stated Complaint: FEVER X6, HAS CANCER, DIARRHEA ED Provider: Rolo Delacruz Discharge Problem: Neutropenic fever, Acute kidney injury, Anemia, Thrombocytopenia Patient Disposition: Admitted As Inpatient Discharge Instructions Interventions: ED Discharge Assessment Last Done: 01/16/19 19:44 Discharge Problem: Anemia Qualifiers: Anemia type: unspecified type Qualified Code(s): D64.9 - Anemia, unspecified The scribe's documentation has been prepared under my direction and personally reviewed by me in its entirety. I confirm that the note above accurately reflects all work, treatment, procedures, and medical decision making performed by me.
--- NOTE | 2019-01-16 18:43 | History & Physical Report ---
Date of Service January 16, 2019 Assessment & Plan (1) Neutropenic fever: Uncertain source Pt has been on zydelig for roughly 3 yrs Bacterial vs viral vs med reaction CXR neg for acute, UA pending Cdiff pending given increased diarrhea WBC WNL Cover with vanco, cefepime for now Blood cx pending (2) Acute kidney injury: Likely related to poor PO intake in the setting of fever Baseline CKD with cr 1.5-1.6, 2.4 on admission (3) Elevated troponin: Minimally elevated at 0.019, likely related to muscle breakdown from poor PO intake and hypoglycemia Serials pending No cardiac hx EKG WNL Monitor (4) DM type 2 (diabetes mellitus, type 2): SSI PRN Holding glimepiride given decreased PO intake BS 56 on admission A1c pending (5) CLL (chronic lymphocytic leukemia): continue home meds (6) Hyperlipidemia: continue home meds (7) Hypothyroid: continue home meds (8) HTN (hypertension): continue home meds (9) CVA (cerebral vascular accident): Event was 01/2017 continue home meds (10) DVT prophylaxis: SCDs, Heparin for DVT proph History of Present Illness Primary Care Provider: Vinnie Crawford MD 63 y/o M c/o fever. Pt has been having fevers between 100-102.7 for the last 7 days. They state it is "up and down". He initially felt fine other than the fever, however in the last few days he has had no appetite and has not eaten. No n/v. He has loose stools at baseline, which has been the case during the 3 yrs that he has been on zydelig, however they have been much worse the last few days. He usually has about 6 loose bowel movements daily. He is up to 10-12 or more with urgency now. No abd pain. Pt denies SOB, chest pain, n/v, LE pain or swelling. No cuts. No one else is sick including daughter who is a toddler. She does not go to daycare. No recent abx use. He has continued to take his gli mepiride and other medications even though he has not been eating. Allergies Allergy/AdvReac Type Severity Reaction Status Date / Time No Known Allergies Allergy Verified 01/16/19 17:18 Home Medications Home Medications Medication Instructions Recorded Confirmed Type aspirin [Aspirin Low Dose] 81 mg PO QAM 02/17/18 01/16/19 History atorvastatin 40 mg PO QAM 02/17/18 01/16/19 History coenzyme Q10 [Co Q-10] 100 mg PO QPM 02/17/18 01/16/19 History cyanocobalamin (vitamin B-12) 1,000 mcg PO PM 02/17/18 01/16/19 History glimepiride 4 mg PO QAM 02/17/18 01/16/19 History srozq-mg-4-bia-zqf-afftipr-ast 1 cap PO QAM 02/17/18 01/16/19 History [krill oil] lisinopril 5 mg PO QAM 02/17/18 01/16/19 History loperamide 2 mg PO DAILY PRN 02/17/18 01/16/19 History multivitamin 1 tab PO QPM 02/17/18 01/16/19 History acetaminophen [Tylenol Extra 500 mg PO Q6H PRN 01/16/19 01/16/19 History Strength] idelalisib [Zydelig] 100 mg PO BID 01/16/19 01/16/19 History levothyroxine 25 mcg PO 3XWK 01/16/19 01/16/19 History levothyroxine 50 mcg PO QAM 01/16/19 01/16/19 History Past Med/Surg History Medical History CLL (chronic lymphocytic leukemia) Cataract, left eye Chronic kidney disease STAGE 2 Diabetes mellitus, type 2 History of anesthesia reaction WAS AWAKE FOR APORT PLACEMENT, NEEDS MORE ANESTHESIA? Hyperlipidemia Hypertension Hypothyroidism Stroke 2016--SPEECH IS SLIGHTLY SLOWER Tinnitus of both ears Surgical History H/O right cataract extraction History of tooth extraction WISDOM TEETH History of vascular access device L CHEST Family History Father Family history of diabetes mellitus TIA (transient ischemic attack) Social History Preferred Language: Yi Communication Ability: Effective Home School Teacher Required: No Beliefs That Will Affect Care: None Current Living Situation: Spouse and Family Feels Safe at Home: Yes Smoking Status: Never smoker Second Hand Exposure: No ; Hx Alcohol Use: Yes (rare) Alcohol type: wine and hard liquor Hx Substance Use: No Review of Systems Review of Systems: Pertinent positives and negatives reviewed in HPI--all others negative Physical Exam Constitutional: WD/WN, vitals as above Eyes: normal visual richard by confrontation and + anicteric sclerae Neck: normal visual inspection and trachea midline Respiratory: normal respiratory effort, lungs clear to auscultation Cardiovascular: Rate/Rhythm: regular rate and regular rhythm Gastrointestinal (Abdomen): Inspection/Auscultation: abdomen not distended Percussion/Palpation: abdomen soft; abdomen nontender Musculoskeletal: Head/Neck/Chest: normocephalic and head atraumatic negative for edema, peripheral pulses intact Skin: no rashes, warm and dry Neurologic: awake; not confused Speech / Cognition: normal speech Psychiatric: A+Ox3, euthymic affect Results & Data Vital Signs (Past 12 Hours) Vital Signs Temp Pulse Pulse Resp BP BP Pulse Ox 01/16/19 18:00 80 21 122/63 99 01/16/19 17:52 78 20 125/77 100 01/16/19 17:32 84 20 125/62 98 01/16/19 17:31 79 24 125/62 99 01/16/19 17:30 83 20 01/16/19 17:20 80 21 01/16/19 17:07 96 01/16/19 15:52 37.1 C 93 H 20 128/76 96 Diagnostic Findings CXR: neg for acute ECG Rhythm: normal sinus Code Status & VTE Plan Code Status Full code VTE Prophylaxis Plan VTE Prophylaxis will be ordered: Yes PG Care Time/CCT Total # of Minutes Spent Total Time Spent with Patient: Total time spent is greater than 50% in coordination of care (as documented) at patient's floor/unit and/or counseling patient:
[2019-01-16 18:58] LABS: Appearance Urine Clear (Clear); Bacteria Urine Automated Negative (Negative); Bilirubin Urine Negative (Negative); Blood Urine Trace (Negative); Color Urine Yellow; Glucose Urine UA Negative (Negative); Ketones Urine Negative (Negative); Leukocyte Esterase Urine Negative (Negative); Nitrite Urine Negative (Negative); Protein Urine 1+ (Negative); RBC Urine Automated 0-4 /hpf (0-4); Specific Gravity Urine 1.023 (1.000-1.030); Urobilinogen Urine Negative (Negative)
[2019-01-16] MEDS ORDERED: DEXTROSE 50% 50 ML SYRINGE IV PRN (19:30)
[2019-01-16] MEDS ORDERED: MAGNESIUM HYDROXIDE SUSP 30 ML UDC PO PRN (19:30)
[2019-01-16] MEDS ORDERED: GLUCAGON FOR INJ 1 MG VIAL SQ PRN (19:30)
[2019-01-16] MEDS ORDERED: GLUCOSE 10 TABS/TUBE PO PRN (19:30)
[2019-01-16] MEDS ORDERED: ONDANSETRON INJ 2 MG/ML 2 ML VIAL IV PRN (19:30)
[2019-01-16] MEDS ORDERED: VANCOMYCIN CONSULT ACTIVE PRN (19:30)
[2019-01-16] MEDS ORDERED: ACETAMINOPHEN 500 MG TAB PO PRN (19:30)
[2019-01-16] MEDS ORDERED: VANCOMYCIN HCL 1,000 MG in SODIUM CHLORIDE 0.9% 250 ML IV SCH (19:30)
[2019-01-16] MEDS ORDERED: LOPERAMIDE HCL 2 MG CAP PO PRN (19:30)
[2019-01-16] MEDS ORDERED: GLUCOSE 40% GEL 15 GM TUBE PO PRN (19:30)
[2019-01-16] MEDS: CARBOHYDRATES FOR HYPOGLYCEMIA PO PRN ×2 (19:45→20:05)
[2019-01-16] MEDS ORDERED: VANCOMYCIN HCL 2,750 MG in SODIUM CHLORIDE 0.9% 500 ML IV ONE (19:45)
[2019-01-16] MEDS: NSS + 20MEQ KCL 20 MEQ/1,000 ML BAG IV SCH (20:07)
[2019-01-16] MEDS ORDERED: NON-FORMULARY MEDICATION (Coenzyme Q10 [Co Q-10] 100 MG) PO SCH (21:00)
[2019-01-16] MEDS: INSULIN ASPART 100 UNITS/ML 3 ML PEN SC SCH (21:05)
[2019-01-16] MEDS: MULTIVITAMIN TAB PO SCH (21:59)
[2019-01-16] MEDS: CYANOCOBALAMIN 500 MCG TABLET (VITAMIN B-12) PO SCH (21:59)
[2019-01-16] MEDS ORDERED: CEFEPIME 1,000 MG in SYRINGE 0 ML IV SCH (22:00)
[2019-01-16] MEDS: HEPARIN SOD 5,000 UNIT/0.5 ML VIAL SQ SCH (22:00)
[2019-01-16] MEDS: [UNRECOGNIZED DRUG - OTHER] PO SCH (22:01)
[2019-01-16] MEDS: ACETAMINOPHEN 325 MG TAB PO PRN (23:32)
[2019-01-17] MEDS ORDERED: HEPARIN 100 UNIT/ML 5ML FLUSH FLUSH PRN (01:00)
[2019-01-17] MEDS: NSS + 20MEQ KCL 20 MEQ/1,000 ML BAG IV SCH ×3 (04:43→20:05)
[2019-01-17] MEDS: ACETAMINOPHEN 325 MG TAB PO PRN ×4 (05:29→20:50)
[2019-01-17] MEDS: CEFEPIME 2,000 MG in SYRINGE 7.5 ML IV SCH ×2 (05:29→17:38)
[2019-01-17] MEDS: HEPARIN SOD 5,000 UNIT/0.5 ML VIAL SQ SCH ×3 (05:29→20:06)
[2019-01-17] MEDS: LEVOTHYROXINE SODIUM 50 MCG TABLET PO SCH (05:30)
[2019-01-17] MEDS: ASPIRIN 81 MG ECTAB PO SCH (08:03)
[2019-01-17] MEDS: LISINOPRIL 5 MG TAB PO SCH (08:03)
[2019-01-17] MEDS: ATORVASTATIN 40 MG TAB PO SCH (08:03)
[2019-01-17] MEDS: INSULIN ASPART 100 UNITS/ML 3 ML PEN SC SCH ×4 (08:36→20:05)
[2019-01-17 08:53] LABS: Mean Corpuscular Hgb Conc 34.5 g/dL (32-36); Mean Corpuscular Volume 84.5 fL (80-100); Mean Platelet Volume 9.7 fL (7.4-10.4); Platelet Count 100 K/uL (130-400); RDW Coefficient of Variation 14.1 % (11.5-14.5); RDW Standard Deviation 43.7 fL (36.4-46.3); Red Blood Count 3.43 M/uL (4.7-6.1); White Blood Count 4.98 K/uL (4.8-10.8)
[2019-01-17] MEDS ORDERED: NON-FORMULARY MEDICATION (Krill-Om-3-Dha-Epa-Phospho-Ast [Krill Oil] 1 CAP) PO SCH (09:00)
[2019-01-17 09:23] LABS: Calcium 7.8 mg/dl (8.5-10.1); Creatinine Clr Calc Pharmacy 50.3 ml/min; Est GFR (African American) 41.8; Magnesium 1.7 mg/dl (1.8-2.4); Potassium 3.5 mmol/L (3.5-5.1)
[2019-01-17 09:28] LABS: Phosphorus 2.7 mg/dl (2.5-4.9); Troponin I 0.036 ng/ml (0-0.045)
[2019-01-17 09:37] LABS: Echinocytes 1+; Eosinophils # (auto) 0.01 K/uL (0-0.5); Eosinophils % (auto) 0.2 %; Immature Granulocytes # (auto) 0.03 K/uL (0.00-0.02); Immature Granulocytes % (auto) 0.6 %; Lymphocytes % (auto) 72.3 %; Neutrophils # (auto) 1.14 K/uL (1.4-6.5); Neutrophils % (auto) 22.9 %; Smudge Cells Present; Toxic Vacuolation 1+
[2019-01-17] MEDS: [UNRECOGNIZED DRUG - OTHER] PO SCH ×2 (10:17→21:52)
[2019-01-17] MEDS: MAGNESIUM OXIDE 400 MG TAB PO SCH ×2 (12:54→21:53)
[2019-01-17] MEDS: VANCOMYCIN HCL 1,750 MG in SODIUM CHLORIDE 0.9% 500 ML IV SCH (14:05)
--- NOTE | 2019-01-17 16:06 | Pharmacy Report ---
Pharmacy Abx Initial Consult - Date of Service January 17, 2019 - Pharmacy Dosing Scope Date of Consult: 01/16/19 Consultation requested by: Dr. Gill Pharmacy is consulted to initiate Vancomycin IV/PO dosing therapy, order appropriate labs and adjust drug dose/frequency. - Subjective The patient is a 63 year old M admitted on 01/16/19 18:32. - Objective Height: 5 ft 10 in Weight: 115.5 kg (BMI:36.5) Vital Signs (Past 12hrs): Vital Signs Temp Pulse Pulse Resp BP Pulse Ox 01/17/19 15:32 76 01/17/19 11:05 37.7 C H 90 16 140/77 96 01/17/19 08:00 84 01/17/19 07:06 37.1 C 82 22 120/65 95 01/17/19 05:28 38.0 C H 01/17/19 04:42 37.4 C 93 H 18 119/68 96 Lab Results (24hrs): Laboratory Tests (24 Hours) 01/17/19 01/17/19 01/16/19 08:41 08:41 16:55 WBC 4.98 Neut # (Auto) 1.14 L ESR Creatinine 1.94 H D Est Cr Clr Drug Dosing 50.3 C-Reactive Protein Procalcitonin 0.30 01/16/19 01/16/19 01/16/19 16:55 16:55 16:55 WBC 6.78 Neut # (Auto) ESR 57 H Creatinine 2.49 H Est Cr Clr Drug Dosing 39.4 C-Reactive Protein 12.40 H Procalcitonin Micro Results: 01/16/19 16:55 Aerobic Blood Culture - Pending Blood Anaerobic Blood Culture - Pending 01/16/19 16:55 Aerobic Blood Culture - Pending Blood Anaerobic Blood Culture - Pending - Risk Factors for Resistance * Immunocompromised (CLL on chronic Zydelig) - Assessment & Plan Assessment 63 year old M admitted for neutropenic fever of unknown source. He has been having fevers between 100-102.7 x7days. Past few days has also had poor appetite. Prior to that was feeling normal other than the fevers. At baseline has loose stools (~ 6 times/day) but over the last couple days has gotten more pronounced. Plan Vancomycin for treatment of neutropenic fever unknown source Vancomycin IV * Estimated PK Parameters: Vd 0.6 L/kg, Alfredo 0.046 hr-1, t1/2 15.1 hr * Loading dose: 2750 mg (24 mg/kg) * Maintenance dose: 1750 mg IV (15.2 mg/kg) every 18 hours * Goal trough level : 15 to 20 mcg/mL * Trough level ordered for 01/19/19 * A less than traditional dose and/or extended dosing interval has/have been selected due to likelihood of drug accumulation in obese patient/patient with h/o CKD. Cefepime:(not consulted) * Target dose for neutropenic fever is 2gm IV q8h. * Due to renal function dosed Cefepime at 2gm q12h Pharmacy will continue to follow and will adjust dose/frequency as necessary. Thank you.
[2019-01-17] MEDS: CYANOCOBALAMIN 500 MCG TABLET (VITAMIN B-12) PO SCH (21:52)
[2019-01-17] MEDS: MULTIVITAMIN TAB PO SCH (21:53)
--- NOTE | 2019-01-17 22:45 | Hospitalist Progress Note ---
Date of Service January 17, 2019 Assessment & Plan (1) Neutropenic fever: Uncertain source Pt has been on zydelig for roughly 3 yrs Bacterial vs viral vs med reaction CXR neg for acute, UA neg Cdiff neg ANC was 300 at admission. Improved to 1.1 Cover with vanco, cefepime for now Blood cx pending Patient requested hem/onc consult. Anticipate ANC to improve on 01/18 (2) Acute kidney injury: Likely related to poor PO intake in the setting of fever Baseline CKD with cr 1.5-1.6, 2.4 on admission improved to 1.9 on 01/17 Hypomagnesemia: Will replace and monitor. (3) Elevated troponin: Minimally elevated at 0.019, likely related to muscle breakdown from poor PO intake and hypoglycemia trop negative No cardiac hx EKG WNL Monitor (4) DM type 2 (diabetes mellitus, type 2): SSI PRN Holding glimepiride given decreased PO intake BS 56 on admission A1c 7.4 (5) CLL (chronic lymphocytic leukemia): continue home meds (6) Hyperlipidemia: continue home meds (7) Hypothyroid: continue home meds (8) HTN (hypertension): continue home meds (9) CVA (cerebral vascular accident): Event was 01/2017 continue home meds (10) DVT prophylaxis: SCDs, Heparin for DVT proph Spent 35 mins in management of patient. Subjective Patient reports feeling a little improved today. He states that he had a rough nigth in which he had some fever. Aside from this , he denies any additional symptoms, such as nausea, vomiting, chest pain., SOB. Review of Systems Review of Systems: All systems reviewed & are unremarkable except as noted in HPI & below Physical Exam Physical Exam: Constitutional: WD/WN, vitals as above Eyes: normal visual richard by confrontation and + anicteric sclerae Neck: normal visual inspection and trachea midline Respiratory: normal respiratory effort, lungs clear to auscultation Cardiovascular: Rate/Rhythm: regular rate and regular rhythm Gastrointestinal (Abdomen): Inspection/Auscultation: abdomen not distended Percussion/Palpation: abdomen soft; abdomen nontender Musculoskeletal: Head/Neck/Chest: normocephalic and head atraumatic negative for edema, peripheral pulses intact Skin: no rashes, warm and dry Neurologic: awake; not confused Speech / Cognition: normal speech Psychiatric: A+Ox3, euthymic affect Results & Data Vital Signs (Past 12 Hours) Vital Signs Temp Pulse Pulse Resp BP Pulse Ox 01/17/19 21:52 37.4 C 01/17/19 20:01 38.1 C H 77 19 122/58 L 94 01/17/19 16:03 38.1 C H 79 15 128/62 99 01/17/19 15:32 76 01/17/19 11:05 37.7 C H 90 16 140/77 96 PG Care Time/CCT Total # of Minutes Spent Total Time Spent with Patient: Total time spent is greater than 50% in coordination of care (as documented) at patient's floor/unit and/or counseling patient:
[2019-01-18] MEDS: NSS + 20MEQ KCL 20 MEQ/1,000 ML BAG IV SCH ×3 (04:19→21:16)
[2019-01-18] MEDS: ACETAMINOPHEN 325 MG TAB PO PRN ×3 (04:20→23:41)
[2019-01-18] MEDS: LEVOTHYROXINE SODIUM 50 MCG TABLET PO SCH (06:17)
[2019-01-18] MEDS: CEFEPIME 2,000 MG in SYRINGE 7.5 ML IV SCH ×2 (06:17→19:46)
[2019-01-18] MEDS: HEPARIN SOD 5,000 UNIT/0.5 ML VIAL SQ SCH ×3 (06:18→22:10)
[2019-01-18 06:20] LABS: Estimated Average Glucose 166 mg/dl; Hemoglobin A1C 7.4 % (4.5-5.6)
[2019-01-18 07:12] LABS: Hematocrit (blood only) 28.2 % (42-52); Hemoglobin 9.6 g/dL (14.0-18.0); Mean Corpuscular Volume 84.4 fL (80-100); Mean Platelet Volume 10.1 fL (7.4-10.4); Platelet Count 109 K/uL (130-400); RDW Coefficient of Variation 14.1 % (11.5-14.5); RDW Standard Deviation 43.9 fL (36.4-46.3); Red Blood Count 3.34 M/uL (4.7-6.1); White Blood Count 6.21 K/uL (4.8-10.8)
[2019-01-18 07:22] LABS: INR 1.3 (0.9-1.1); Prothrombin Time 13.2 Seconds (9.0-12.0)
[2019-01-18 07:40] LABS: BUN Creatinine Ratio 14.1 (10-20); Creatinine Clr Calc Pharmacy 57.2 ml/min; Est GFR (African American) 47.6; Est GFR (Non-African American) 41.1; Potassium 3.6 mmol/L (3.5-5.1)
[2019-01-18 07:54] LABS: Basophils # (auto) 0.01 K/uL (0-0.2); Basophils % (auto) 0.2 %; Echinocytes 1+; Eosinophils # (auto) 0.02 K/uL (0-0.5); Eosinophils % (auto) 0.3 %; Immature Granulocytes # (auto) 0.03 K/uL (0.00-0.02); Immature Granulocytes % (auto) 0.5 %; Lymphocytes # (auto) 4.56 K/uL (1.2-3.4); Lymphocytes % (auto) 73.4 %; Monocytes # (auto) 0.22 K/uL (0.11-0.59); Monocytes % (auto) 3.5 %; Neutrophils # (auto) 1.37 K/uL (1.4-6.5); Neutrophils % (auto) 22.1 %; Smudge Cells Present; Toxic Granulation 1+
[2019-01-18] MEDS: INSULIN ASPART 100 UNITS/ML 3 ML PEN SC SCH ×4 (08:50→22:01)
[2019-01-18] MEDS: VANCOMYCIN HCL 1,750 MG in SODIUM CHLORIDE 0.9% 500 ML IV SCH (08:50)
[2019-01-18] MEDS: MAGNESIUM OXIDE 400 MG TAB PO SCH ×2 (08:51→22:09)
[2019-01-18] MEDS: ASPIRIN 81 MG ECTAB PO SCH (08:51)
[2019-01-18] MEDS: LISINOPRIL 5 MG TAB PO SCH (08:51)
[2019-01-18] MEDS: ATORVASTATIN 40 MG TAB PO SCH (08:51)
[2019-01-18] MEDS: [UNRECOGNIZED DRUG - OTHER] PO SCH ×2 (10:36→22:09)
--- NOTE | 2019-01-18 10:49 | Hospitalist Progress Note ---
Date of Service January 18, 2019 Assessment & Plan (1) Neutropenic fever: Uncertain source Pt has been on zydelig for roughly 3 yrs Bacterial vs viral vs med reaction CXR neg for acute, UA neg, Cdiff neg ANC was 300 at admission, neutrophils 1.37 now Cover with vanco, cefepime for now Blood cx ngtd - patient continues to be febrile but per his wishes will wait until ID sees him for any further blood cultures Patient requested hem/onc consult - pending ID consulted (2) Acute kidney injury: Likely related to poor PO intake in the setting of fever Baseline CKD with cr 1.5-1.6, 2.4 on admission improving, nearly baseline - continue IVF (3) DM type 2 (diabetes mellitus, type 2): SSI PRN Holding home glimepiride BS 56 on admission A1c 7.4 (4) CLL (chronic lymphocytic leukemia): continue home idelalisib Oncology consulted (5) Anemia: Hgb was 13 previous to this admission and has been stable around 10. Heme occult pending, iron studies am (6) Hyperlipidemia: continue atorvastatin (7) Hypothyroid: continue levothyroxine (8) HTN (hypertension): continue lisinopril now that kidney function is nearly baseline (9) CVA (cerebral vascular accident): Event was 01/2017 continue ASA, statin, (10) DVT prophylaxis: SCDs, Heparin for DVT proph Dispo: will transfer to med surg Supervising Physician Co-Signing Physician Notes I have seen and examined pt and agree with JAS Dennis exam , assessment and plan. Subjective Mr. Gray is frustrated that he continues to have aches and chills and fevers. He has no other s/s of infection: no new cough, sob, dysuria, skin inflammation, pain in his mouth. He does have chronic diarrhea but no blood in his stool and his Cdiff was negative. Review of Systems Review of Systems: All systems reviewed & are unremarkable except as noted in HPI & below Physical Exam Physical Exam: General: no distress Eyes: normal inspection, PERLL Mouth: no obvious lesions around mucosa/tongue Respiratory: chest non tender, clear to auscultation, normal breath sounds, no respiratory distress, no accessory muscle use Cardiac: regular rate and rhythm, no rub or gallop, no murmur, no edema, no jvd GI/: active bowel sounds, no abd pain or tenderness, soft, non distended Extremities: normal range of motion, normal strength, non tender Neuro/Psych: alert and oriented x 3, normal mood and affect Skin: normal color, dry, no rashes or breakdown Results & Data Vital Signs (Past 12 Hours) Vital Signs Temp Pulse Resp BP Pulse Ox 01/18/19 07:05 37.9 C H 72 16 150/77 H 97 01/18/19 04:16 38.1 C H 84 20 137/61 96 01/17/19 23:16 37.6 C H 72 20 127/64 96 PG Care Time/CCT Total # of Minutes Spent Total Time Spent with Patient: Total time spent is greater than 50% in coordination of care (as documented) at patient's floor/unit and/or counseling patient:
--- NOTE | 2019-01-18 11:50 | Infectious Disease Consult ---
Date of Consultation January 18, 2019 Assessment & Plan (1) Neutropenic fever: continue emperic abx, await repeat blood culture, requesting from port. If diarrhea recurs would suggest ct abd and pelvis. will follow History of Present Illness Attending Physician: Brennen Fleming pt admitted with ongoing fevers. 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 found to have ANC 300 in ER, now >1000. was placed on cefepime and vanco, tolerating well. blood culture from ER negative to date, UA negative, CXR negative. no cough. no abd pain, no n/v. has diarrhea from chemo, worse over the last week, now better again, back to baseline, no cramps, no bleeding, eating well. no cp, sob, mitchell. no gu symptoms. repeat blood cutlures ordered, requesting they be taken from port. has had port for 3 years, no issue, working well. denies pain, draiange, redness, warmth. wbc 6.2 today, procalcitonin 0.3, ESR57, creat 1.7, was 2.5 on admission, Urine culture negative and final. tmax 01/16 39.5, 01/17 38.1, 01/18 38.1 currently denies fevers, feels well. has chills but no rigors. 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 Allergies Allergy/AdvReac Type Severity Reaction Status Date / Time No Known Allergies Allergy Verified 01/16/19 17:18 Home Medications Home Medications Medication Instructions Recorded Confirmed Type aspirin [Aspirin Low Dose] 81 mg PO QAM 02/17/18 01/16/19 History atorvastatin 40 mg PO QAM 02/17/18 01/16/19 History coenzyme Q10 [Co Q-10] 100 mg PO QPM 02/17/18 01/16/19 History cyanocobalamin (vitamin B-12) 1,000 mcg PO PM 02/17/18 01/16/19 History glimepiride 4 mg PO QAM 02/17/18 01/16/19 History fpctu-[id number]-3-lhf-jfq-wcesavx-ast 1 cap PO QAM 02/17/18 01/16/19 History [krill oil] lisinopril 5 mg PO QAM 02/17/18 01/16/19 History loperamide 2 mg PO DAILY PRN 02/17/18 01/16/19 History multivitamin 1 tab PO QPM 02/17/18 01/16/19 History acetaminophen [Tylenol Extra 500 mg PO Q6H PRN 01/16/19 01/16/19 History Strength] idelalisib [Zydelig] 100 mg PO BID 01/16/19 01/16/19 History levothyroxine 25 mcg PO 3XWK 01/16/19 01/16/19 History levothyroxine 50 mcg PO QAM 01/16/19 01/16/19 History Patient History Medical History CLL (chronic lymphocytic leukemia) Cataract, left eye Chronic kidney disease STAGE 2 Diabetes mellitus, type 2 History of anesthesia reaction WAS AWAKE FOR APORT PLACEMENT, NEEDS MORE ANESTHESIA? Hyperlipidemia Hypertension Hypothyroidism Stroke 2015--SPEECH IS SLIGHTLY SLOWER Tinnitus of both ears Surgical History H/O right cataract extraction History of tooth extraction WISDOM TEETH History of vascular access device L CHEST Family History Father Family history of diabetes mellitus TIA (transient ischemic attack) Social History Preferred Language: Mexican Communication Ability: Effective Education Nurse Required: No Beliefs That Will Affect Care: None Current Living Situation: Family Feels Safe at Home: Yes Smoking Status: Never smoker Second Hand Exposure: No ; Hx Alcohol Use: No Hx Substance Use: No Review of Systems Review of Systems: All systems reviewed & are unremarkable except as noted in HPI & below Physical Exam Constitutional: WD/WN, vitals as above Eyes: PERRL, conjunctivae normal, anicteric sclerae ENMT: external ear and nose normal, oropharynx normal Neck: normal visual inspection Respiratory: normal respiratory effort, lungs clear to auscultation Cardiovascular: RRR, no murmur, no edema Gastrointestinal (Abdomen): normal bowel sounds, soft, nontender, no hepatosplenomegaly Musculoskeletal: no cyanosis or clubbing, extremities motor strength 5/5 Skin: no rashes, warm and dry left chest wall port c/d/i, non tender, no warmth, no erythema. Psychiatric: A+Ox3, euthymic affect Results & Data Vital Signs (Past 12 Hours) Vital Signs Temp Pulse Resp BP Pulse Ox 01/18/19 07:05 37.9 C H 72 16 150/77 H 97 01/18/19 04:16 38.1 C H 84 20 137/61 96 Laboratory Results Microbiology 01/16/19 18:45 Urine,Clean Catch Urine Culture - Final No growth - less than 1,000 colonies/mL. 01/16/19 16:55 Blood Aerobic Blood Culture - Preliminary No growth in Aerobic bottle after 24 hours. 01/16/19 16:55 Blood Anaerobic Blood Culture - Final 01/16/19 16:55 Blood Aerobic Blood Culture - Preliminary No growth in Aerobic bottle after 24 hours. 01/16/19 16:55 Blood Anaerobic Blood Culture - Preliminary No growth in Anaerobic bottle after 24 hours. PG Care Time/CCT Total # of Minutes Spent Total Time Spent with Patient: Total time spent is greater than 50% in coordination of care (as documented) at patient's floor/unit and/or counseling patient:
--- NOTE | 2019-01-18 17:02 | Oncology Consultation ---
Date of Consultation January 18, 2019 Assessment & Plan (1) Neutropenic fever: Mr. Gray is barely neutropenic, but I think broad-spectrum antibiotics are reasonable for now. It is not clear what the source of his fevers would be. His CXR was clear and his UA was non-infectious. Blood cultures so far have been negative. He has diarrhea, but has had it for a while. He might have a viral syndrome. Another possibility would be a zoonosis, though he has no rashes or reports of tick exposure. The other possibility would be tumor fevers. His disease was modestly progressive when I saw him in early November. However, if he has more marked progression now, that could explain his issues. If he does not defervesce, we could check a CT tomorrow to evaluate for progressive adenopathy. Present on Admission?: Yes History of Present Illness Reason for Consultation: Fevers CLL Attending Physician: Brennen Fleming History of Present Illness Mr. Gray is a 63 year old man with a history of CLL that dates back to 2013. He was initially treated with chemo and responded well, but had a clinical relapse in 2014 and was started on Rituxan and Zydelig. He continues the latter to today. His disease has responded well, though when I saw him in November there were signs he was starting to lose his response, as his ALC was creeping up and he had some modestly progressive adenopathy. Still, he was feeling well at the time so we continued treatment. He called my office last week complaining of increasing constitutional symptoms, including fatigue and low grade fevers. He also had noticed an increase in his diarrhea, which has been an ongoing issue with the Zydelig. We were planning to bring him in for labs and IV fluids when he came for a port flush this week, but he ended up in the ER over the weekend with fevers. He denies any cough, shortness of breath, dysuria, hematuria, or other obvious localizing signs of infection. He was very mildly neutropenic on admission and has been on broad-spectrum antibiotics since admission. He has continued to have temps around 38, though he did have one fever of 39.5 on 01/16. His cultures have so far been negative and his UA and chest x-ray were both not suggestive of infection. He has no obviously sick contacts, though he cares for his 2 year old daughter who does come into contact with other children. Allergies Allergy/AdvReac Type Severity Reaction Status Date / Time No Known Allergies Allergy Verified 01/16/19 17:18 Home Medications Home Medications Medication Instructions Recorded Confirmed Type aspirin [Aspirin Low Dose] 81 mg PO QAM 02/17/18 01/16/19 History atorvastatin 40 mg PO QAM 02/17/18 01/16/19 History coenzyme Q10 [Co Q-10] 100 mg PO QPM 02/17/18 01/16/19 History cyanocobalamin (vitamin B-12) 1,000 mcg PO PM 02/17/18 01/16/19 History glimepiride 4 mg PO QAM 02/17/18 01/16/19 History qqsca-[id number]-6-[id number]-yte-wzdbkwx-ast 1 cap PO QAM 02/17/18 01/16/19 History [krill oil] lisinopril 5 mg PO QAM 02/17/18 01/16/19 History loperamide 2 mg PO DAILY PRN 02/17/18 01/16/19 History multivitamin 1 tab PO QPM 02/17/18 01/16/19 History acetaminophen [Tylenol Extra 500 mg PO Q6H PRN 01/16/19 01/16/19 History Strength] idelalisib [Zydelig] 100 mg PO BID 01/16/19 01/16/19 History levothyroxine 25 mcg PO 3XWK 01/16/19 01/16/19 History levothyroxine 50 mcg PO QAM 01/16/19 01/16/19 History Patient History Medical History CLL (chronic lymphocytic leukemia) Cataract, left eye Chronic kidney disease STAGE 2 Diabetes mellitus, type 2 History of anesthesia reaction WAS AWAKE FOR APORT PLACEMENT, NEEDS MORE ANESTHESIA? Hyperlipidemia Hypertension Hypothyroidism Stroke 2016--SPEECH IS SLIGHTLY SLOWER Tinnitus of both ears Surgical History H/O right cataract extraction History of tooth extraction WISDOM TEETH History of vascular access device L CHEST Family History Father Family history of diabetes mellitus TIA (transient ischemic attack) Social History Preferred Language: Bots[place]an Communication Ability: Effective Proofsheet Corrector Required: No Beliefs That Will Affect Care: None Current Living Situation: Family Feels Safe at Home: Yes Smoking Status: Never smoker Second Hand Exposure: No ; Hx Alcohol Use: No Hx Substance Use: No Review of Systems Constitutional: + fever, + fatigue and + malaise Eyes: no worsening vision Ear, Nose, Mouth, Throat: no nasal congestion and no sinus pain/pressure Respiratory: no cough and no dyspnea Cardiovascular: no chest pain Gastrointestinal: + diarrhea/loose stools; no abdominal pain and no nausea Genitourinary: no dysuria and no hematuria Musculoskeletal: no back pain and no joint pain Integumentary: no rash Neurologic: + dizziness (improved with hydration); no headache(s) Hematologic / Lymphatic: no lymphadenopathy and no night sweats Physical Exam Constitutional: comfortable; no acute distress and not ill appearing Eyes: + anicteric sclerae and EOM intact bilaterally ENMT: external ear and nose normal, oropharynx normal Respiratory: normal respiratory effort, lungs clear to auscultation Cardiovascular: RRR, no murmur, no edema Gastrointestinal (Abdomen): normal bowel sounds, soft, nontender, no hepatosplenomegaly Skin: no rashes, warm and dry Psychiatric: A+Ox3, euthymic affect Lymphatic: no cervical or axillary lymphadenopathy Results & Data Vital Signs (Past 12 Hours) Vital Signs Temp Pulse Resp BP BP Pulse Ox 01/18/19 16:05 38.1 C H 86 20 129/73 98 01/18/19 12:13 38.8 C H 85 16 143/54 H 99 01/18/19 07:05 37.9 C H 72 16 150/77 H 97 Laboratory Results Laboratory Tests 01/16/19 01/16/19 01/18/19 16:55 18:45 07:03 WBC 6.21 Hgb 9.6 L Plt Count 109 L Neut # (Auto) 1.37 L Lymph # (Auto) 4.56 H ESR 57 H Stl C. diff Tox B Gene Negative Cdiff Gene
[2019-01-18] MEDS ORDERED: HYDROCORTISONE HC 2.5% CRM 30GM TUBE EXT PRN (18:08)
[2019-01-18] MEDS: CYANOCOBALAMIN 500 MCG TABLET (VITAMIN B-12) PO SCH (22:09)
[2019-01-18] MEDS: MULTIVITAMIN TAB PO SCH (22:09)
[2019-01-19] MEDS ORDERED: VANCOMYCIN TROUGH ONE ×2 (01:30→19:30)
[2019-01-19] MEDS: VANCOMYCIN HCL 1,750 MG in SODIUM CHLORIDE 0.9% 500 ML IV SCH ×2 (01:54→20:31)
[2019-01-19] MEDS: NSS + 20MEQ KCL 20 MEQ/1,000 ML BAG IV SCH ×2 (06:02→13:57)
[2019-01-19] MEDS: CEFEPIME 2,000 MG in SYRINGE 7.5 ML IV SCH ×2 (06:02→18:48)
[2019-01-19] MEDS: HEPARIN SOD 5,000 UNIT/0.5 ML VIAL SQ SCH ×2 (06:03→13:39)
[2019-01-19 06:14] LABS: Hematocrit (blood only) 25.8 % (42-52); Mean Corpuscular Hgb Conc 34.9 g/dL (32-36); Mean Corpuscular Volume 83.8 fL (80-100); Mean Platelet Volume 9.9 fL (7.4-10.4); Platelet Count 120 K/uL (130-400); RDW Coefficient of Variation 14.4 % (11.5-14.5); RDW Standard Deviation 44.3 fL (36.4-46.3); Red Blood Count 3.08 M/uL (4.7-6.1); White Blood Count 5.78 K/uL (4.8-10.8)
[2019-01-19 06:15] LABS: Base Excess VBG -5.3 mEq/L; HCO3 VBG 19 mmol/L; PCO2 VBG 29 mmHg (38-50); PO2 VBG 30 mmHg; pH VBG 7.42 (7.36-7.41)
[2019-01-19 06:20] LABS: Oxygen Saturation VBG < 60.0 %
[2019-01-19] MEDS ORDERED: LEVOTHYROXINE SODIUM 25 MCG TABLET PO SCH (06:30)
[2019-01-19 06:47] LABS: Creatinine Clr Calc Pharmacy 57.4 ml/min; Est GFR (African American) 47.3; Est GFR (Non-African American) 40.8
[2019-01-19] MEDS: INSULIN ASPART 100 UNITS/ML 3 ML PEN SC SCH ×4 (08:48→20:44)
[2019-01-19] MEDS: ASPIRIN 81 MG ECTAB PO SCH (08:51)
[2019-01-19] MEDS: ATORVASTATIN 40 MG TAB PO SCH (08:51)
[2019-01-19] MEDS: LISINOPRIL 5 MG TAB PO SCH (08:52)
[2019-01-19] MEDS: MAGNESIUM OXIDE 400 MG TAB PO SCH ×2 (08:52→20:44)
[2019-01-19 08:58] LABS: BUN Creatinine Ratio 13.5 (10-20); Calcium 7.7 mg/dl (8.5-10.1); Creatinine Clr Calc Pharmacy 58.4 ml/min; Est GFR (African American) 48.3; Est GFR (Non-African American) 41.7; Potassium 3.7 mmol/L (3.5-5.1)
[2019-01-19] MEDS ORDERED: FERROUS SULFATE 325 MG TAB PO SCH (09:00)
[2019-01-19] MEDS: [UNRECOGNIZED DRUG - OTHER] PO SCH (09:41)
--- NOTE | 2019-01-19 14:09 | Infectious Disease Progress Nt ---
Date of Service January 19, 2019 Assessment & Plan (1) Neutropenic fever: continue emperic abx, await repeat blood culture, requesting from port. Neutropenia has resolved, fevers are improving, agree with heme/onc could be tumor related, procalcitonin negative, speaks against infeciton as cause. would agree with repeat ct and would also consider dopplers to r/o dvt. No infectious etiology identified, if cultures remain negative, will likely follow off of abx. Subjective pt had tmax 39.1 overnight, now afebrile. fever curve improved. remains on broad spectrum abx, cultures from yesterday pending, previous cultures negative. Heme onc noted appreciated, ? tumor related fever. No longer neutropenic. wbc improving. creat improving. procalcitonin negative. Results & Data Vital Signs (Past 12 Hours) Vital Signs Temp Pulse Resp BP Pulse Ox 01/19/19 12:12 36.8 C 81 18 133/64 96 01/19/19 07:32 37.9 C H 85 16 165/66 H 100 01/19/19 03:59 37.2 C 75 18 135/68 94 Laboratory Results Microbiology 01/18/19 12:26 Blood Aerobic Blood Culture - Preliminary No growth in Aerobic bottle after 24 hours. 01/18/19 12:26 Blood Anaerobic Blood Culture - Preliminary No growth in Anaerobic bottle after 24 hours. 01/16/19 16:55 Blood Aerobic Blood Culture - Preliminary No growth in Aerobic bottle after 48 hours. 01/16/19 16:55 Blood Anaerobic Blood Culture - Preliminary No growth in Anaerobic bottle after 48 hours. 01/16/19 16:55 Blood Aerobic Blood Culture - Preliminary No growth in Aerobic bottle after 48 hours. 01/16/19 16:55 Blood Anaerobic Blood Culture - Final 01/16/19 18:45 Urine,Clean Catch Urine Culture - Final No growth - less than 1,000 colonies/mL. PG Care Time/CCT Total # of Minutes Spent Total Time Spent with Patient: Total time spent is greater than 50% in coordination of care (as documented) at patient's floor/unit and/or counseling patient:
--- NOTE | 2019-01-19 14:25 | CT Scan Report ---
CT chest wo con CT DOSE: 2477.48 mGy.cm HISTORY: Fever fever, leukemia TECHNIQUE: Multiaxial CT images of the chest were performed without contrast. A dose lowering techni que was utilized adhering to the principles of ALARA. COMPARISON: 11/30/2018 FINDINGS: The lungs remain clear. Stable axillary and mid mediastinal adenopathy. Slightly progressive left retrocrural adenopathy. Mild increase in perinephric infiltrative change bi laterally. IMPRESSION: 1. No focal infiltrate with the lungs considered clear. 2. Slightly progressive left retrocrural adenopathy with all remaining adenopathy stable. 3. Mild increase in perinephric fat stranding. Evaluation for potential urinary tract infection is hunt ggested. The above report was generated using voice recognition software. It may contain grammatical, syntax or spelling errors. Electronically signed by: Jorge Haney M.D. 01/19/2019 2:24 PM
--- NOTE | 2019-01-19 14:51 | CT Scan Report ---
CT SCAN OF THE ABDOMEN AND PELVIS WITHOUT IV CONTRAST CLINICAL HISTORY: Fever. Diarrhea. Leukemia. COMPARISON STUDY: Abdominal CT dated 11/30/2018. TECHNIQUE: CT scan of the abdomen and pelvis is performed from the lung bases to the proximal femora. Images are reviewed in the axial, sagittal, and coronal planes. IV contrast was not administered for this examination. Oral contrast was utilized. A dose lowering technique was utilized adhering to the principles of ALARA. FINDINGS: Lung bases: The heart is normal in size and there is a small pericardial effusion. There are coronary artery calcifications. There are trace pleural effusions with dependent atelectasis. There is scarri ng/atelectasis in the lower lobes. Scattered calcified granulomas are observed. There are paravertebr al/subpleural lymph nodes identified. The largest is on the left seen on image #43. This measures 2.1 x 1.7 cm. There is a tiny hiatal hernia. Liver: The unenhanced liver is normal in size and heterogeneous in attenuation. Nodularity of the hep atic surface contour indicates early change of cirrhosis. There is no intrahepatic biliary ductal dil atation. Gallbladder: Unremarkable. Spleen: The spleen is top normal in size and normal in attenuation, measuring 12.9 cm in length. Pancreas: The unenhanced pancreas is moderately atrophic and grossly unremarkable. Adrenal glands: Unremarkable. Kidneys: The unenhanced kidneys demonstrate cortical atrophy and are without hydronephrosis. There ar e no renal calculi identified. There is no evidence of contour deforming renal mass lesion. Abdominal vasculature: The abdominal aorta is normal in course and caliber. Bowel: No bowel obstruction is seen. Enteric contrast reaches the colon. There is a small duodenal di verticulum. The appendix is well-visualized and normal. Peritoneum: There is no intraperitoneal free air or abdominal ascites. There is a fat-containing umbi lical hernia. Lymphadenopathy: There is upper abdominal, retroperitoneal, iliac chain, and mesenteric lymphadenopat hy. Left periaortic nodes measure up to 3.3 x 2.3 cm as seen on image #174. A portacaval node on imag e #130 measures 3.9 x 2.3 cm. A mesenteric node on image #191 measures 2.8 x 2.1 cm. No inguinal melissa opathy is seen. Pelvic viscera: The bladder, prostate, and seminal vesicles are normal as imaged. There is subcutaneo us soft tissue infiltration with overlying dermal thickening identified in the right buttock along th e median gluteal crease. There is deep soft tissue gas identified throughout this region which appear s to extend through the anal ring. No organized fluid collection are clear fistulous tract is identif ied. Skeletal structures: The skeletal structures are osteopenic. Mild lumbosacral spondylosis is observed . No lytic or blastic lesions are seen. IMPRESSION: 1. There is evidence of soft tissue infection identified involving the right buttock along the median gluteal crease. Correlate clinically for evidence of cellulitis. 2. There is heterogeneous superficial and deep soft tissue gas throughout this region which appears t o extend through the anal ring. Anal perforation is not excluded. 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 Correlation with clinical findings and direct visualization is recommended. These f indings are new from 11/30/2018. 3. No organized fluid collection is seen to indicate abscess and there is no well-formed fistulous tr act. 4. Abdominopelvic lymphadenopathy is similar to previous and consistent with the patient's known hist ory of leukemia. 5. Trace pleural effusions. 6. The spleen is top normal in size. 7. The liver demonstrates early changes of cirrhosis. 8. Additional findings as above. Findings were discussed with nurse practitioner Violette Crawford at the time of interpretation. Electronically signed by: Neymar Cohn M.D. 01/19/2019 2:50 PM
--- NOTE | 2019-01-19 16:04 | Surgery Consultation ---
Date of Consultation January 19, 2019 Assessment & Plan (1) Neutropenic fever: Patient was seen with Dr. Chao and would recommend evaluation at a tertiary center where colorectal surgery can be involved in the decision making. Patient was agreeable to this. History of Present Illness Attending Physician: Sherie Ocasio MD History of Present Illness 63 y/o diabetic male on Zydelig for CLL admitted 3 days ago for fever, anorexia. Has chronic diarrhea/incontinence while on Zydelig. Was having some perirectal pain but attributed it to hemorrhoids. CT today shows heterogeneous gas collection of right buttock extending through the anal ring raising the question of perforation vs Bud's. He denies recent enema, trauma, etc. Allergies Allergy/AdvReac Type Severity Reaction Status Date / Time No Known Allergies Allergy Verified 01/16/19 17:18 Home Medications Home Medications Medication Instructions Recorded Confirmed Type aspirin [Aspirin Low Dose] 81 mg PO QAM 02/17/18 01/16/19 History atorvastatin 40 mg PO QAM 02/17/18 01/16/19 History coenzyme Q10 [Co Q-10] 100 mg PO QPM 02/17/18 01/16/19 History cyanocobalamin (vitamin B-12) 1,000 mcg PO PM 02/17/18 01/16/19 History glimepiride 4 mg PO QAM 02/17/18 01/16/19 History uoplb-ps-2-tjc-uua-wwnpagl-ast 1 cap PO QAM 02/17/18 01/16/19 History [krill oil] lisinopril 5 mg PO QAM 02/17/18 01/16/19 History loperamide 2 mg PO DAILY PRN 02/17/18 01/16/19 History multivitamin 1 tab PO QPM 02/17/18 01/16/19 History acetaminophen [Tylenol Extra 500 mg PO Q6H PRN 01/16/19 01/16/19 History Strength] idelalisib [Zydelig] 100 mg PO BID 01/16/19 01/16/19 History levothyroxine 25 mcg PO 3XWK 01/16/19 01/16/19 History levothyroxine 50 mcg PO QAM 01/16/19 01/16/19 History Patient History Medical History CLL (chronic lymphocytic leukemia) Cataract, left eye Chronic kidney disease STAGE 2 Diabetes mellitus, type 2 History of anesthesia reaction WAS AWAKE FOR APORT PLACEMENT, NEEDS MORE ANESTHESIA? Hyperlipidemia Hypertension Hypothyroidism Stroke 2016--SPEECH IS SLIGHTLY SLOWER Tinnitus of both ears Surgical History H/O right cataract extraction History of tooth extraction WISDOM TEETH History of vascular access device L CHEST Family History Father Family history of diabetes mellitus TIA (transient ischemic attack) Social History Preferred Language: Maltese Communication Ability: Effective Clinical Social Work Aide Required: No Beliefs That Will Affect Care: None Current Living Situation: Family Feels Safe at Home: Yes Smoking Status: Never smoker Second Hand Exposure: No ; Hx Alcohol Use: No Hx Substance Use: No Review of Systems Constitutional: + fever and + anorexia Gastrointestinal: + diarrhea/loose stools and + fecal incontinence; no nausea and no vomiting Physical Exam Constitutional: no acute distress Respiratory: normal respiratory effort; no respiratory distress Cardiovascular: Rate/Rhythm: regular rate Gastrointestinal (Abdomen): rather significant right perianal/gluteal induration, mild erythema, no erythema on left but mild induration, no drainage Results & Data Vital Signs (Past 12 Hours) Vital Signs Temp Pulse Resp BP Pulse Ox 01/19/19 14:55 36.7 C 81 16 147/63 H 98 01/19/19 12:12 36.8 C 81 18 133/64 96 01/19/19 07:32 37.9 C H 85 16 165/66 H 100 PG Care Time/CCT Total # of Minutes Spent Total Time Spent with Patient: Total time spent is greater than 50% in coordination of care (as documented) at patient's floor/unit and/or counseling patient:
--- NOTE | 2019-01-19 17:50 | Discharge Summary ---
Date of Service January 19, 2019 Admission HPI Per Admitting Provider 63 y/o M c/o fever. Pt has been having fevers between 100-102.7 for the last 7 days. They state it is "up and down". He initially felt fine other than the fever, however in the last few days he has had no appetite and has not eaten. No n/v. He has loose stools at baseline, which has been the case during the 3 yrs that he has been on zydelig, however they have been much worse the last few days. He usually has about 6 loose bowel movements daily. He is up to 10-12 or more with urgency now. No abd pain. Pt denies SOB, chest pain, n/v, LE pain or swelling. No cuts. No one else is sick including daughter who is a toddler. She does not go to daycare. No recent abx use. He has continued to take his glimepiride and other medications even though he has not been eating. Principal Diagnosis Cellulitis Discharge Exam Constitutional WD/WN, vitals as above Respiratory normal respiratory effort, lungs clear to auscultation Cardiovascular RRR, no murmur, no edema Gastrointestinal (Abdomen) Inspection/Auscultation: abdomen normal to inspection and normal bowel sounds; abdomen not distended Percussion/Palpation: abdomen soft; abdomen nontender Musculoskeletal no cyanosis or clubbing, extremities motor strength 5/5 Skin left buttock erythema and induration Neurologic moves all extremities and awake Psychiatric A+Ox3, euthymic affect Discharge Data Allergies Allergy/AdvReac Type Severity Reaction Status Date / Time No Known Allergies Allergy Verified 01/16/19 17:18 Consultations 01/16/19 18:01 ED Decision to Admit Stat 01/17/19 16:07 Consult Hematology Routine 01/18/19 10:37 Consult Infectious Diseases Routine 01/19/19 14:53 Consult General Surgery Routine 01/19/19 16:46 Burn CD for patient Routine Ordered Studies 01/19/19 11:22 CT abd pelvis oral con only Routine 01/19/19 11:57 CT chest wo con Routine Hospital Course (1) Neutropenic fever: Initially uncertain source - patient presented with fevers, aches and chills for about 7 days (10 days at this point) and chronic diarrhea which he has had for three years since starting his Zydelig. He was started on cefepime/vancomycin for neutropenic fever. He denied any areas of skin problems or breakdown or tooth or mouth problems. He did mention hemorrhoids last evening which he has chronically. He persisted with fevers throughout the night again and a CT abdomen with po contrast was ordered. This showed: IMPRESSION: 1. There is evidence of soft tissue infection identified involving the right buttock along the median gluteal crease. Correlate clinically for evidence of cellulitis. 2. There is heterogeneous superficial and deep soft tissue gas throughout this region which appears to extend through the anal ring. Anal perforation is not excluded. 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 Correlation with clinical findings and direct visualization is recommended. These findings are new from 11/30/2018. 3. No organized fluid collection is seen to indicate abscess and there is no well-formed fistulous tract. Upon examination of his right buttock there was a large area extending from the crease to mid buttock that was indurated with erythema. General surgery was consulted and recommended transfer to tertiary care. Discussed case with Dr. Cordon from colorectal surgery who recommended adding Flagyl and transferring for possible surgery tonight. Mr. Gray has remained hemodynamically stable this admission. He has been febrile throughout his admission though today he has not had a fever since 0730 and has not had any Tylenol since midnight. CXR neg for acute, UA neg, Cdiff neg ANC was 300 at admission, neutrophils 1.37 now Blood cx ngtd - repeat blood cultures 01/18 ngtd as well Heme onc and ID consulted (2) Acute kidney injury: Likely related to poor PO intake in the setting of fever Baseline CKD with cr 1.5-1.6, 2.4 on admission - now 1.75 improving, nearly baseline - continue IVF (3) DM type 2 (diabetes mellitus, type 2): SSI PRN Holding home glimepiride in patient BS 56 on admission but has otherwise been well controlled 130s-140s A1c 7.4 (4) CLL (chronic lymphocytic leukemia): continued home idelalisib per oncology rec - now that infectious source has been identified will hold CT chest 01/19 - Slightly progressive left retrocrural adenopathy with all remaining adenopathy stable. (5) Anemia: Hgb was 13 previous to this admission and has been stable around 10. Heme occult pending Iron studies - mendoza 13, TIBC 162 - will initiate iron po daily (6) Hyperlipidemia: continue atorvastatin (7) Hypothyroid: continue levothyroxine (8) HTN (hypertension): continue lisinopril now that kidney function is nearly baseline (9) CVA (cerebral vascular accident): Event was 01/2017 continue ASA, statin, (10) DVT prophylaxis: SCDs, patient refusing any heparin Dispo: will transfer to [facility] (11) Cirrhosis: Follow up outpatient Total Time Total Time Spent Total Time Spent (In Minutes): greater than 30 minutes Discharge Plan Discharge Items Patient Disposition: Transfer Acute Care Hospital Reason For Visit: NEUTROPENIC FEVER Discharge Diagnosis: Cellulitis Discharge Goals: Therapeutic intervention Activity: Resume your previous activity Non-emergency contact: Primary Care Provider Call non-emergency contact if: you have any medication questions Follow-up/Referrals: Vinnie Crawford MD [Primary Care Provider] - Diet: Regular Addtl Provider Instructions: . Prescriptions: New ferrous sulfate 325 mg (65 mg iron) Tablet,Delayed Release (Dr/Ec) 325 mg PO QAM Qty: 30 RF: 0 cefepime 1 gram recon soln 2 gm IV Q12H Qty: 14 RF: 0 vancomycin in 0.9 % sodium chl 1 gram/200 mL piggyback 1.75 gm IV Q18H Qty: 1200 RF: 0 metronidazole in NaCl (iso-os) 500 mg/100 mL piggyback 500 mg IV Q8H Qty: 2400 RF: 0 Continued multivitamin Tablet 1 tab PO QPM RF: 0 atorvastatin 40 mg Tablet 40 mg PO QAM RF: 0 loperamide 2 mg Capsule 2 mg PO DAILY PRN (Reason: Diarrhea) RF: 0 cyanocobalamin (vitamin B-12) 1,000 mcg Tablet 1,000 mcg PO PM RF: 0 aspirin [Aspirin Low Dose] 81 mg Tablet,Delayed Release (Dr/Ec) 81 mg PO QAM RF: 0 glimepiride 2 mg Tablet 4 mg PO QAM RF: 0 lisinopril 5 mg Tablet 5 mg PO QAM RF: 0 coenzyme Q10 [Co Q-10] 100 mg Capsule 100 mg PO QPM RF: 0 tlpqv-vj-6-qux-gbb-kicpdrp-ast [krill oil] 1,769-241-57-80 mg Capsule 1 cap PO QAM RF: 0 acetaminophen [Tylenol Extra Strength] 500 mg Tablet 500 mg PO Q6H PRN (Reason: Pain) RF: 0 levothyroxine 50 mcg tablet 25 mcg PO 3XWK RF: 0 Zydelig 100 mg tablet 100 mg PO BID RF: 0 levothyroxine 50 mcg tablet 50 mcg PO QAM RF: 0 Stand-Alone Forms: [facility] Discharge Orders: Discharge Order (Routine); Ordered 01/19/19 Ordered By: Violette Crawford Admission Data Admit Date/Time: 01/16/19 18:32 Attending Provider: Sherie Ocasio Admit Provider: Aidee Gill Primary Care Provider: Vinnie Crawford Other Providers: Aidee Gill ; Kolton Morillo V ; Per Draper ; Brennen Fleming ; Harvey Chao Service: Medical Other Interventions: Discharge Summary Assessment (RN) Last Done: 01/19/19 19:12 Supervising Physician Co-Signing Physician Notes I have seen and examined pt and agree with JAS Dennis exam , assessment and plan.
[2019-01-19] MEDS ORDERED: metroNIDAZOLE 500 MG/100 ML BAG IV SCH (18:00)
[2019-01-19] MEDS: CYANOCOBALAMIN 500 MCG TABLET (VITAMIN B-12) PO SCH (20:44)
[2019-01-19] MEDS: MULTIVITAMIN TAB PO SCH (20:44)
== END 2019-01-19 21:48 | disposition short-term general hospital (02) | DRG 603 ==
LOC: ED 15:49 → 2E 18:32 → SUATTDRO 18:32 → 2E 19:44 → 4W 01-18 11:23
DX: N18.2 Chronic kidney disease, stage 2 (mild); Z82.3 Family history of stroke; I12.9 Hypertensive chronic kidney disease with stage 1 through stage 4 chronic kidney disease, or unspecified chronic kidney disease; E78.5 Hyperlipidemia, unspecified; E03.9 Hypothyroidism, unspecified; Z83.3 Family history of diabetes mellitus; C91.12 Chronic lymphocytic leukemia of B-cell type in relapse; E11.22 Type 2 diabetes mellitus with diabetic chronic kidney disease; L03.317 Cellulitis of buttock; N17.9 Acute kidney failure, unspecified; I69.328 Other speech and language deficits following cerebral infarction; D70.9 Neutropenia, unspecified; D64.9 Anemia, unspecified

== ENCOUNTER 2019-06-01 08:11 | Inpatient (IN) ==
[2019-06-03] MEDS ORDERED: CARBOHYDRATES FOR HYPOGLYCEMIA PO PRN (11:48)
[2019-06-03] MEDS ORDERED: DEXTROSE 50% 50 ML SYRINGE IV PRN (11:48)
[2019-06-03] MEDS ORDERED: GLUCAGON FOR INJ 1 MG VIAL SQ PRN (11:48)
[2019-06-03] MEDS ORDERED: ONDANSETRON INJ 2 MG/ML 2 ML VIAL IV PRN (11:48)
[2019-06-03] MEDS ORDERED: ACETAMINOPHEN 325 MG TAB PO PRN (11:48)
[2019-06-03] MEDS ORDERED: GLUCOSE 10 TABS/TUBE PO PRN (11:48)
[2019-06-03] MEDS ORDERED: GLUCOSE 40% GEL 15 GM TUBE PO PRN (11:48)
--- NOTE | 2019-06-03 11:49 | History & Physical Report ---
Date of Service June 03, 2019 Assessment & Plan (1) CLL (chronic lymphocytic leukemia): - Admit to med surg for chemotherapeutic regimen - Consult heme/onc- Dr. Ricci - Contact precautions for pt safety - Continue therapy with venetoclax per onc recommendations, recently stopped Imbruvica due to allergic reaction with rash, now cleared up at this point. - Follow cbc with diff and prp daily, checking now as well as phosphorus, inr - Last WBC was 84K from 06/01/19 (2) Colostomy present: - Wound ostomy nurse consulted for stoma - Follow with Dr. Diggs locally s/p surgery (3) DM type 2 (diabetes mellitus, type 2): - ISS with accuchecks achs, holding glimepiride during hospitalization - A1C with am labs - HH/DM diet (4) HTN (hypertension): - Continue lisinopril 5 mg daily (5) Hyperlipidemia: - Cont atorvastatin 40 mg QAM, coenzyme Q10, (6) Hypothyroid: - Cont levothyroxine 25 mcg daily (7) DVT prophylaxis: - teds, lovenox 40 mg subQ CODE: Full code Dispo: From home, likely to remain in the hospital x at least 2 days. History of Present Illness Primary Care Provider: Vinnie Crawford MD This is a 63 yo M with PMHx of CLL, originally diagnosed in December 2013, who presents for routine chemotherapy with high risk for tumor lysis syndrome. Per outside records the patient was previously on Zydelig therapy during Dec 2018. This therapy was restarted after a break from November-Jan 2019 in the attempt to have another child. His disease progressed therefore was restarted on chemotherapy. In Dec 2018 he presented to [facility] for anal/rectal perforation with an associated abscess and required transfer [place] [facility] Zydelig was stopped as it was probable that it caused the rare, likely < 1%, adverse effect. While at [facility] he underwent diverting colostomy and debridement of the abscess.He follows with Dr. Diggs, who recently saw him with hopes of seton removal as well as possible reversal of the colostomy. The patient presents today for administration of ventoclax. We will consult hematology/oncology during his stay here as there is high risk for tumor lysis syndrome. Pt is present with his , daughter (2.5 yo) and son ( 1 mo. old). Allergies Allergy/AdvReac Type Severity Reaction Status Date / Time No Known Allergies Allergy Verified 02/24/19 14:38 Home Medications Home Medications Medication Instructions Recorded Confirmed Type atorvastatin 40 mg PO QAM 02/17/18 06/03/19 History coenzyme Q10 [Co Q-10] 100 mg PO QPM 02/17/18 06/03/19 History cyanocobalamin (vitamin B-12) 1,000 mcg PO PM 02/17/18 06/03/19 History gbyxj-yd-3-odq-seu-dbfcjsy-ast 1 cap PO QAM 02/17/18 06/03/19 History [krill oil] multivitamin 1 tab PO QAM 02/17/18 06/03/19 History glimepiride 2 mg tablet 4 mg PO QAM #60 tab 02/15/19 06/03/19 Rx lisinopril 5 mg tablet 5 mg PO QAM #90 tab 03/15/19 06/03/19 Rx allopurinol 300 mg PO DAILY 06/03/19 06/03/19 History levothyroxine 25 mcg PO UD 06/03/19 06/03/19 History levothyroxine 50 mcg PO UD 06/03/19 06/03/19 History Past Med/Surg History Medical History Cataract, left eye Chronic kidney disease (Acute) STAGE 2 CLL (chronic lymphocytic leukemia) Diabetes mellitus, type 2 History of anesthesia reaction WAS AWAKE FOR APORT PLACEMENT, NEEDS MORE ANESTHESIA? 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 Beliefs That Will Affect Care: None Current Living Situation: Family Other Information That Helps Us Care for You: No Feels Safe at Home: No Is there a partner from a previous relationship who is making you feel unsafe now?: No Any Concerns about Your Family Situation: No Would You Like to Speak to Someone About Your Situation: No Safety Concerns: Feels Safe At This Time Smoking Status: Never smoker Second Hand Exposure: No ; Hx Alcohol Use: No Hx Substance Use: No Review of Systems Review of Systems: Constitutional: No fever, sweats or chills, + generalized fatigue since stopping Imbruvica Eyes: No diplopia, no worsening or blurred vision ENT: normal hearing, no trouble swallowing Respiratory: No cough, sputum, dyspnea at rest or on exertion Cardiovascular: No chest pain, tightness or palpitations Abdomen: No pain, nausea, vomiting, + colostomy working well, no diarrhea or constipation Musculoskeletal: No joint pain, calf pain, swelling Neurologic: No weakness, numbness/tingling, or balance problems Psychiatric: No anxiety or depression Skin: No rash or itch Physical Exam Physical Exam: General: awake, alert, no apparent distress, + obese with BMI of 36.3 Head: Normocephalic, atraumatic ENT: PERRL, EOMI, no pharyngeal exudate, mucous membranes moist Chest: Clear to auscultation, on room air, no adventitious breath sounds Cardiac: Regular rate and rhythm, no murmur, no JVD, normal peripheral pulses, good capillary refill Abdominal: NABS x 4 quadrants, soft, nondistended, +colostomy in LLQ, nontender to palpation, no rebound, guarding or tenderness Extremities: Normal inspection, 2+ peripheral edema, no erythema, calfs nontender to palpation Skin: few areas of red rash over flexor surfaces of arms bilaterally Psych: Normal mood and affect Neuro: AAO x 3, strength intact bilaterally and related 5/5, no motor deficits, speech is clear, no peripheral sensory deficits Results & Data Vital Signs (Past 12 Hours) Vital Signs Temp Pulse Resp BP Pulse Ox 06/03/19 10:27 36.3 C L 82 16 150/78 H 98 Code Status & VTE Plan Code Status Full code- discussed with the pt and family at bedside. Supervising Physician Co-Signing Physician Notes Patient seen and examined, chart reviewed, case discussed with ERAN Garza and I agree with her assessment and plan as documented above. Briefly, patient is a 63yo C male with CLL. He was admitted at request of the Heme/Onc service to initiate treatment with Venclexa for IV hydration and monitoring of renal function and electrolytes as medication has a high risk for tumor lysis syndrome. Intake labs reveal Neutropenia, possibly secondary to Allopurinol use. Plan to hold Venclexa for now. On physical exam he is afebrile, HD stable, NAD. Resting comfortably in bed Skin - no rashes/lesions HEENT - NC/AT, PERRL, EOMI, MMM, Neck supple Heart - +S1/S2, regular, no m/r/g Lungs - CTA, no rales/rhonchi/wheezes Abd - Colostomy in place, healthy appearing ostomy Ext - no edema Labs and images reviewed. Significant for WBC=75.74, Hgb=8.7, Hct=26.3, ANCo=0.98 Bun=25, Crk=1.6 Assessment/Plan - 63yo C male with CLL presenting for chemotherapy, monitoring for TLS. Therapy presently on hold due to neutropenia. -Repeat CBC with diff in AM. If ANC improves will initiate Venclexa -Remainder of plan as above PG Care Time/CCT Total # of Minutes Spent Total Time Spent with Patient: Total time spent is greater than 50% in coordination of care (as documented) at patient's floor/unit and/or counseling patient: (1) HTN (hypertension) Hypertension type: essential hypertension Qualified Code(s): I10 - Essential (primary) hypertension
[2019-06-03] MEDS: SODIUM CHLORIDE 0.9% 1000ML IV SCH ×2 (12:30→21:05)
[2019-06-03 12:44] LABS: Hematocrit (blood only) 26.3 % (42-52); Hemoglobin 8.7 g/dL (14.0-18.0); Mean Corpuscular Hemoglobin 32.5 pg (25-34); Mean Corpuscular Hgb Conc 33.1 g/dL (32-36); Mean Corpuscular Volume 98.1 fL (80-100); Mean Platelet Volume 8.9 fL (7.4-10.4); Platelet Count 123 K/uL (130-400); RDW Coefficient of Variation 16.7 % (11.5-14.5); RDW Standard Deviation 58.4 fL (36.4-46.3); Red Blood Count 2.68 M/uL (4.7-6.1); White Blood Count 75.74 K/uL (4.8-10.8)
[2019-06-03 12:48] LABS: INR 1.1 (0.9-1.1); Prothrombin Time 11.4 Seconds (9.0-12.0)
[2019-06-03 12:52] LABS: Albumin Level 3.1 gm/dl (3.4-5.0); BUN Creatinine Ratio 15.6 (10-20); Calcium 8.5 mg/dl (8.5-10.1); Creatinine Clr Calc Pharmacy 60.8 ml/min; Est GFR (African American) 52.7; Est GFR (Non-African American) 45.5; Potassium 4.1 mmol/L (3.5-5.1); Uric Acid 5.9 mg/dl (2.6-7.2)
[2019-06-03 12:55] LABS: Bilirubin,Total 0.5 mg/dl (0.2-1); Globulin 3.1 gm/dl (2.5-4.0); Phosphorus 4.2 mg/dl (2.5-4.9); Total Protein 6.2 gm/dl (6.4-8.2)
--- NOTE | 2019-06-03 13:36 | Oncology Consultation ---
Date of Consultation June 03, 2019 Assessment & Plan (1) CLL (chronic lymphocytic leukemia): He will take his first dose of Venclexa today. He is on IV hydration and should continue it throughout the night. He should have labs, including CMP, uric acid, PO4, and coags, at 4, 8, 12, and 24 hours post dose, as outlined in his admission orders. He is taking allopurinol and should continue it as well. If he shows any signs of worsening renal function, we may need to monitor him through the weekend. Otherwise, we will plan on repeating his labs first thing Friday. The Venclexa should continue as PO daily. Present on Admission?: Yes History of Present Illness Reason for Consultation: CLL Attending Physician: Opal Newton MD History of Present Illness Mr. Leo is a 63 year old man with a history of CLL. He has seen multiple treatments in the past. He was stable on Zydelig until earlier this year, when he developed a bowel perforation that may have been treatment-related. He started ibrutinib as next line therapy, but developed a rash that appeared allergic. As a result, we discussed starting venetoclax as next line therapy. The primary complication of this medication is tumor lysis syndrome, so we generally admit patients for their first exposure. He is admitted for this first dose today. He denies any constitutional symptoms, fevers, bleeding, or infectious symptoms. 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 It is uncomfortable at times but not painful. He denies any headaches, vision changes, new pain, shortness of breath, or chest pain. Allergies Allergy/AdvReac Type Severity Reaction Status Date / Time No Known Allergies Allergy Verified 02/24/19 14:38 Home Medications Home Medications Medication Instructions Recorded Confirmed Type atorvastatin 40 mg PO QAM 02/17/18 06/03/19 History coenzyme Q10 [Co Q-10] 100 mg PO QPM 02/17/18 06/03/19 History cyanocobalamin (vitamin B-12) 1,000 mcg PO PM 02/17/18 06/03/19 History yemvc-ag-8-iyl-sfg-jzkkwmm-ast 1 cap PO QAM 02/17/18 06/03/19 History [krill oil] multivitamin 1 tab PO QAM 02/17/18 06/03/19 History glimepiride 2 mg tablet 4 mg PO QAM #60 tab 02/15/19 06/03/19 Rx lisinopril 5 mg tablet 5 mg PO QAM #90 tab 03/15/19 06/03/19 Rx allopurinol 300 mg PO DAILY 06/03/19 06/03/19 History levothyroxine 25 mcg PO UD 06/03/19 06/03/19 History levothyroxine 50 mcg PO UD 06/03/19 06/03/19 History Patient History Medical History Cataract, left eye Chronic kidney disease (Acute) STAGE 2 CLL (chronic lymphocytic leukemia) Diabetes mellitus, type 2 History of anesthesia reaction WAS AWAKE FOR APORT PLACEMENT, NEEDS MORE ANESTHESIA? 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 Beliefs That Will Affect Care: None Current Living Situation: Family Other Information That Helps Us Care for You: No Feels Safe at Home: No Is there a partner from a previous relationship who is making you feel unsafe now?: No Any Concerns about Your Family Situation: No Would You Like to Speak to Someone About Your Situation: No Safety Concerns: Feels Safe At This Time Smoking Status: Never smoker Second Hand Exposure: No ; Hx Alcohol Use: No Hx Substance Use: No Review of Systems Review of Systems: All systems reviewed & are unremarkable except as noted in HPI & below Physical Exam Constitutional: healthy appearing and comfortable; no acute distress ENMT: external ear and nose normal, oropharynx normal Respiratory: normal respiratory effort, lungs clear to auscultation Cardiovascular: RRR, no murmur, no edema Gastrointestinal (Abdomen): Inspection/Auscultation: normal bowel sounds Percussion/Palpation: abdomen soft; abdomen nontender He has a colostomy in his LLQ with a large parastomal hernia Skin: no rashes, warm and dry Psychiatric: A+Ox3, euthymic affect Lymphatic: + cervical lymphadenopathy (bilateral) Results & Data Vital Signs (Past 12 Hours) Vital Signs Temp Pulse Resp BP Pulse Ox 06/03/19 10:27 36.3 C L 82 16 150/78 H 98 Laboratory Results Laboratory Results - last 24 hr 06/03/19 06/03/19 06/03/19 12:08 12:08 12:08 WBC 75.74 H* RBC 2.68 L Hgb 8.7 L Hct 26.3 L MCV 98.1 MCH 32.5 MCHC 33.1 RDW Std Deviation 58.4 H RDW Coeff of Leonela 16.7 H Plt Count 123 L MPV 8.9 PT 11.4 INR 1.1 Sodium 141 Potassium 4.1 Chloride 110 H Carbon Dioxide 24 Anion Gap 7.0 BUN 25 H Creatinine 1.60 H Est Cr Clr Drug Dosing 60.8 Est GFR ( Amer) 52.7 Est GFR (Non-Af Amer) 45.5 BUN/Creatinine Ratio 15.6 Glucose 146 H Uric Acid 5.9 Calcium 8.5 Phosphorus 4.2 Total Bilirubin 0.5 AST 19 ALT 22 Alkaline Phosphatase 137 H Total Protein 6.2 L Albumin 3.1 L Globulin 3.1 Albumin/Globulin Ratio 1.0
[2019-06-03 13:50] LABS: RBC Morphology Unremarkable
[2019-06-03 14:05] LABS: ALC (manual) 73.09 K/uL (1.2-3.4); ANC (manual) 0.98 K/uL (1.4-6.5); Eosinophils # (manual) 0.98 K/uL (0-0.5); Eosinophils % (manual) 1.3 %; Lymphocytes # (manual) 73.09 K/uL (1.2-3.4); Lymphocytes % (manual) 96.5 %; Monocytes # (manual) 0.68 K/uL (0.11-0.59); Monocytes % (manual) 0.9 %; Neutrophils # (manual) 0.98 K/uL (1.4-6.5); Neutrophils % (manual) 1.3 %
[2019-06-03] MEDS: INSULIN ASPART 100 UNITS/ML 3 ML PEN SC SCH ×2 (18:11→21:06)
[2019-06-04] MEDS: SODIUM CHLORIDE 0.9% 1000ML IV SCH ×2 (02:59→08:47)
[2019-06-04 05:59] LABS: Hematocrit (blood only) 25.8 % (42-52); Hemoglobin 8.4 g/dL (14.0-18.0); Mean Corpuscular Hemoglobin 32.2 pg (25-34); Mean Corpuscular Hgb Conc 32.6 g/dL (32-36); Mean Corpuscular Volume 98.9 fL (80-100); Mean Platelet Volume 9.4 fL (7.4-10.4); Platelet Count 118 K/uL (130-400); RDW Coefficient of Variation 16.9 % (11.5-14.5); RDW Standard Deviation 59.5 fL (36.4-46.3); Red Blood Count 2.61 M/uL (4.7-6.1); White Blood Count 70.28 K/uL (4.8-10.8)
[2019-06-04 06:11] LABS: BUN Creatinine Ratio 13.5 (10-20); Calcium 8.4 mg/dl (8.5-10.1); Creatinine Clr Calc Pharmacy 60.8 ml/min; Est GFR (African American) 52.7; Est GFR (Non-African American) 45.5; Magnesium 1.6 mg/dl (1.8-2.4); Potassium 3.7 mmol/L (3.5-5.1)
[2019-06-04 06:13] LABS: Albumin Globulin Ratio 1.1 (0.9-2); Bilirubin,Total 0.6 mg/dl (0.2-1); Globulin 2.8 gm/dl (2.5-4.0); Phosphorus 3.7 mg/dl (2.5-4.9); Total Protein 5.8 gm/dl (6.4-8.2)
[2019-06-04 06:39] LABS: Smudge Cells Present
[2019-06-04 06:41] LABS: ALC (manual) 69.93 K/uL (1.2-3.4); ANC (manual) 0.35 K/uL (1.4-6.5); Lymphocytes # (manual) 69.93 K/uL (1.2-3.4); Lymphocytes % (manual) 99.5 %; Neutrophils # (manual) 0.35 K/uL (1.4-6.5); Neutrophils % (manual) 0.5 %
[2019-06-04 07:06] LABS: Estimated Average Glucose 171 mg/dl; Hemoglobin A1C 7.6 % (4.5-5.6)
[2019-06-04] MEDS: ENOXAPARIN INJ 40 MG/0.4 ML SYR SQ SCH (08:12)
[2019-06-04] MEDS: INSULIN ASPART 100 UNITS/ML 3 ML PEN SC SCH ×4 (08:12→21:52)
[2019-06-04] MEDS ORDERED: allopurinoL 300 MG TAB PO SCH (09:00)
--- NOTE | 2019-06-04 11:28 | Hospitalist Progress Note ---
Date of Service June 04, 2019 Assessment & Plan (1) CLL (chronic lymphocytic leukemia): - Admit to med surg for chemotherapeutic regimen but unable to give it due to neutropenia worsening today - Consult heme/onc- Dr. Ricci-appreciated - Contact precautions for pt safety - was to start venetoclax per onc recommendations, recently stopped Imbruvica due to allergic reaction with rash, now cleared up at this point. HOLDING OFF on starting chemo yet - eventually will need TLS labs after starting chemo -dc IVFs for now (2) Neutropenia: ANC down to 350. Unclear etiology, could be allopurinol, but could be infectious cause. He does have a 2 yr old daughter that is currently starting with a viral syndrome and is here in the room with him -check CMV, EBV, CXR, UA, BCxs, [id number] -follow CBC -check CXR -cannot start chemo until ANC improves -hold allopurinol (3) Colostomy present: - Wound ostomy nurse consulted for stoma - Follow with Dr. Diggs locally s/p surgery (4) DM type 2 (diabetes mellitus, type 2): - ISS with accuchecks achs, holding glimepiride during hospitalization - A1C 7.6% -loosen SSI a bit - HH/DM diet (5) HTN (hypertension): - Continue lisinopril 5 mg daily BPs controlled (6) Hyperlipidemia: - Cont atorvastatin 40 mg QAM, coenzyme Q10 (7) Hypothyroid: - Cont levothyroxine 25 mcg daily TSH 3.09 in 08/2018 (8) DVT prophylaxis: - teds, lovenox 40 mg subQ CODE: Full code Dispo:continued stay for neutropenia workup Subjective Pt has no complaints. He is upset that he has to stay due to the neutropenia. No fevers. He has had a dry cough x 1 year that he was told may be from his lisinopril but not worse lately. Denies headache or neck pain, no chest pain or SOB, no abd pain, no N/V/D. He is making stool in ostomy. Denies any urinary problems. No rashes other than right arm rash that comes and goes Discussed care at length with Oncology Review of Systems Review of Systems: All systems reviewed & are unremarkable except as noted in HPI & below Physical Exam Constitutional: WD/WN, vitals as above Eyes: + anicteric sclerae ENMT: external ear and nose normal, oropharynx normal Neck: trachea midline, no thyromegaly Respiratory: normal respiratory effort, lungs clear to auscultation Cardiovascular: RRR, no murmur, no edema Chest (Breasts): Chest: normal inspection of chest and + vascular access device or port Gastrointestinal (Abdomen): normal bowel sounds, soft, nontender, no hepatosplenomegaly (with ostomy with green liquid stool) Musculoskeletal: Extremities: extremities normal to inspection; no cyanosis and no clubbing Skin: + rash (right forearma nd AC fossa with small erythematous circular macules) Neurologic: moves all extremities and awake; no focal motor deficits Psychiatric: A+Ox3, euthymic affect Lymphatic: no lymphedema Results & Data Vital Signs (Past 12 Hours) Vital Signs Temp Pulse Resp BP Pulse Ox 06/04/19 07:00 36.6 C 73 18 139/67 94 06/04/19 04:00 36.7 C 70 18 123/66 94 Laboratory Results Labs reviewed, ANC 350 Diagnostic Findings CXR image personally reviewed and agree with the following report: XR chest 2V PA/lateral HISTORY: 63 years-old Male neutropenia,cough acute cough COMPARISON: Chest radiograph 01/16/2019, chest CT 01/19/2019 TECHNIQUE: PA and lateral views of the chest FINDINGS: Left subclavian Xgbxmh-i-[id number] catheter is unchanged. The cardiomediastinal and hilar silhouettes are within normal limits. No pneumothorax, pleural effusion, focal airspace consolidation or overt pulmonary edema. Probable calcified granuloma of the lateral right lung base. Degenerative changes of the shoulders and spine. IMPRESSION: No acute process. PG Care Time/CCT Total # of Minutes Spent Total Time Spent with Patient: Total time spent is greater than 50% in coordination of care (as documented) at patient's floor/unit and/or counseling patient: (1) HTN (hypertension) Hypertension type: essential hypertension Qualified Code(s): I10 - Essential (primary) hypertension
[2019-06-04] MEDS ORDERED: LEVOTHYROXINE SODIUM 50 MCG TABLET PO SCH (11:30)
[2019-06-04] MEDS ORDERED: Nursing to Pharmacy Communication ONE ×2 (12:26→12:50)
[2019-06-04] MEDS ORDERED: lisinopriL 5 MG TAB PO ONE (12:45)
[2019-06-04] MEDS ORDERED: MULTIVITAMIN TAB PO ONE (12:45)
[2019-06-04] MEDS ORDERED: ATORVASTATIN 40 MG TAB PO ONE (12:45)
[2019-06-04 13:11] LABS: Appearance Urine Clear (Clear); Bilirubin Urine Negative (Negative); Blood Urine Negative (Negative); Color Urine Yellow; Glucose Urine UA Negative (Negative); Ketones Urine Negative (Negative); Leukocyte Esterase Urine Negative (Negative); Nitrite Urine Negative (Negative); Protein Urine Negative (Negative); Urobilinogen Urine Negative (Negative)
--- NOTE | 2019-06-04 13:34 | XRay Report ---
XR chest 2V PA/lateral HISTORY: 63 years-old Male neutropenia,cough acute cough COMPARISON: Chest radiograph 01/16/2019, chest CT 01/19/2019 TECHNIQUE: PA and lateral views of the chest FINDINGS: Left subclavian Cionwc-w-Ncdw catheter is unchanged. The cardiomediastinal and hilar silhouettes are within normal limits. No pneumothorax, pleural effusion, focal airspace consolidation or overt pulmon sabino edema. Probable calcified granuloma of the lateral right lung base. Degenerative changes of the s houlders and spine. IMPRESSION: No acute process. ACT 112: Negative or not required by law. The above report was generated using voice recognition software. It may contain grammatical, syntax o r spelling errors. Electronically signed by: Ifeanyi Anderson M.D. 06/04/2019 1:32 PM
--- NOTE | 2019-06-04 16:58 | Hematology/Oncology Prog Note ---
Date of Service June 04, 2019 Assessment & Plan (1) CLL (chronic lymphocytic leukemia): I am unsure about the explanation for his sudden neutropenia. I suspect it may be a medication reaction, given how precipitous the fall has been. His only new medication is allopurinol, which is associated with medication-induced agranulocytosis. We should stop this medication for now and watch his counts. I would also work him up for infections, including viral infections like Parvo, CMV, and EBV. We will hold off on his treatment for now until this issue is better clarified. Present on Admission?: Yes Subjective Mr. Gray was admitted yesterday to begin Venetoclax. However, his ANC was unexpectedly low at 0.98. As a result, we postponed treatment. This morning, it's even lower. He denies any fevers, sweats, mouth sores, rashes, shortness of breath, or sinusitis. He has a chronic cough that is stable. His stools are always loose from his ostomy but he doesn't think they are worse. He denies any recent sick contacts. His only new recent medication was the allopurinol. Review of Systems Review of Systems: All systems reviewed & are unremarkable except as noted in HPI & below Physical Exam Constitutional: healthy appearing and comfortable; no acute distress ENMT: external ear and nose normal, oropharynx normal Respiratory: normal respiratory effort, lungs clear to auscultation Cardiovascular: RRR, no murmur, no edema Gastrointestinal (Abdomen): Inspection/Auscultation: normal bowel sounds Percussion/Palpation: abdomen soft; abdomen nontender Skin: no rashes, warm and dry Psychiatric: A+Ox3, euthymic affect Lymphatic: + cervical lymphadenopathy (bilateral) Results & Data Vital Signs (Past 12 Hours) Vital Signs Temp Pulse Resp BP Pulse Ox 06/04/19 14:49 36.7 C 75 20 133/76 95 06/04/19 11:34 36.9 C 79 20 148/78 H 98 06/04/19 07:00 36.6 C 73 18 139/67 94 Laboratory Results Abnormal Labs 06/03/19 06/03/19 06/03/19 12:08 12:08 16:45 WBC 75.74 H* RBC 2.68 L Hgb 8.7 L Hct 26.3 L RDW Std Deviation 58.4 H RDW Coeff of Leonela 16.7 H Plt Count 123 L Neutrophils # (Manual) 0.98 L Total Absolute Neuts 0.98 L* Lymphocytes # (Manual) 73.09 H Total Abs Lymphocytes 73.09 H Monocytes # (Manual) 0.68 H Eosinophils # (Manual) 0.98 H Chloride 110 H BUN 25 H Creatinine 1.60 H Glucose 146 H POC Glucose 106 H Hemoglobin A1c Calcium Magnesium Alkaline Phosphatase 137 H Total Protein 6.2 L Albumin 3.1 L 06/03/19 06/04/19 06/04/19 20:08 05:18 05:18 WBC 70.28 H* RBC 2.61 L Hgb 8.4 L Hct 25.8 L RDW Std Deviation 59.5 H RDW Coeff of Leonela 16.9 H Plt Count 118 L Neutrophils # (Manual) 0.35 L Total Absolute Neuts 0.35 L* Lymphocytes # (Manual) 69.93 H Total Abs Lymphocytes 69.93 H Monocytes # (Manual) Eosinophils # (Manual) Chloride 115 H BUN 22 H Creatinine 1.60 H Glucose POC Glucose 123 H Hemoglobin A1c Calcium 8.4 L Magnesium 1.6 L Alkaline Phosphatase 129 H Total Protein 5.8 L Albumin 3.0 L 06/04/19 06/04/19 05:18 11:26 WBC RBC Hgb Hct RDW Std Deviation RDW Coeff of Leonela Plt Count Neutrophils # (Manual) Total Absolute Neuts Lymphocytes # (Manual) Total Abs Lymphocytes Monocytes # (Manual) Eosinophils # (Manual) Chloride BUN Creatinine Glucose POC Glucose 139 H Hemoglobin A1c 7.6 H Calcium Magnesium Alkaline Phosphatase Total Protein Albumin
[2019-06-04] MEDS ORDERED: MAGNESIUM SULFATE / D5W 1 GM/100 ML BAG IV STA (20:30)
[2019-06-04] MEDS ORDERED: NON-FORMULARY MEDICATION (Coenzyme Q10 [Co Q-10] 100 MG) PO SCH (21:00)
[2019-06-04] MEDS: CYANOCOBALAMIN 500 MCG TABLET (VITAMIN B-12) PO SCH (21:33)
[2019-06-05] MEDS: HEPARIN 100 UNIT/ML 5ML FLUSH FLUSH PRN (05:49)
[2019-06-05] MEDS: LEVOTHYROXINE SODIUM 50 MCG TABLET PO SCH (06:13)
[2019-06-05] MEDS ORDERED: LEVOTHYROXINE SODIUM 25 MCG TABLET PO SCH (06:30)
[2019-06-05 06:34] LABS: Hematocrit (blood only) 25.7 % (42-52); Hemoglobin 8.1 g/dL (14.0-18.0); Mean Corpuscular Hemoglobin 31.8 pg (25-34); Mean Corpuscular Hgb Conc 31.5 g/dL (32-36); Mean Corpuscular Volume 100.8 fL (80-100); Mean Platelet Volume 9.5 fL (7.4-10.4); Platelet Count 130 K/uL (130-400); RDW Coefficient of Variation 16.6 % (11.5-14.5); RDW Standard Deviation 60.6 fL (36.4-46.3); Red Blood Count 2.55 M/uL (4.7-6.1); White Blood Count 71.16 K/uL (4.8-10.8)
[2019-06-05 07:09] LABS: Albumin Level 2.9 gm/dl (3.4-5.0); BUN Creatinine Ratio 13.1 (10-20); Calcium 8.2 mg/dl (8.5-10.1); Creatinine Clr Calc Pharmacy 64.6 ml/min; Est GFR (Non-African American) 49.2; Potassium 3.6 mmol/L (3.5-5.1)
[2019-06-05 07:11] LABS: Bilirubin,Total 0.8 mg/dl (0.2-1); Total Protein 5.9 gm/dl (6.4-8.2)
[2019-06-05] MEDS: ATORVASTATIN 40 MG TAB PO SCH (07:46)
[2019-06-05] MEDS: MULTIVITAMIN TAB PO SCH (07:46)
[2019-06-05] MEDS: ENOXAPARIN INJ 40 MG/0.4 ML SYR SQ SCH (07:46)
[2019-06-05] MEDS: lisinopriL 5 MG TAB PO SCH (07:46)
[2019-06-05 08:11] LABS: Anisocytosis Present; Smudge Cells Present
[2019-06-05 08:12] LABS: ALC (manual) 71.16 K/uL (1.2-3.4); Lymphocytes # (manual) 71.16 K/uL (1.2-3.4)
[2019-06-05] MEDS: INSULIN ASPART 100 UNITS/ML 3 ML PEN SC SCH ×4 (08:51→21:25)
[2019-06-05] MEDS ORDERED: NON-FORMULARY MEDICATION (Krill-Om-3-Dha-Epa-Phospho-Ast [Krill Oil] 1 CAP) PO SCH (09:00)
--- NOTE | 2019-06-05 12:15 | Hematology/Oncology Prog Note ---
Date of Service June 05, 2019 Assessment & Plan (1) CLL (chronic lymphocytic leukemia): He is now completely agranulocytic. He should remain on neutropenic precautions and I would like to observe him here in the hospital until we have a sense for the explanation or until his counts start to recover. We are holding his allopurinol for now. His young daughter has also been fussy and was a little red-faced today, raising the possibility of Parvo B19. We sent serologies for this, along with a number of other possible viral infections. We are screening him for bacterial infection as well and have found no evidence so far. As long as he is afebrile, we do not need antibiotics. Once we have an explanation, we can consider some GCSF as well. Present on Admission?: Yes Subjective Mr. Gray is comfortable today. He denies any fevers, mucositis, cough, shortness of breath, dysuria, or new or worsening rashes. He has no headaches. His ostomy output has been variable but not watery. Review of Systems Review of Systems: All systems reviewed & are unremarkable except as noted in HPI & below Physical Exam Constitutional: healthy appearing and comfortable; no acute distress ENMT: external ear and nose normal, oropharynx normal Respiratory: normal respiratory effort, lungs clear to auscultation Cardiovascular: RRR, no murmur, no edema Gastrointestinal (Abdomen): Inspection/Auscultation: normal bowel sounds Percussion/Palpation: abdomen soft; abdomen nontender Skin: no rashes, warm and dry Psychiatric: A+Ox3, euthymic affect Lymphatic: + cervical lymphadenopathy (bilateral) Results & Data Vital Signs (Past 12 Hours) Vital Signs Temp Pulse Resp BP Pulse Ox 06/05/19 11:16 37.1 C 76 18 121/74 94 06/05/19 06:57 36.6 C 76 18 145/75 H 94 06/05/19 04:00 36.8 C 73 20 132/70 95 Laboratory Results Abnormal lab results 06/04/19 06/04/19 06/05/19 Range/Units 17:18 20:33 05:49 WBC 71.16 H* (4.8-10.8) K/uL RBC 2.55 L (4.7-6.1) M/uL Hgb 8.1 L (14.0-18.0) g/dL Hct 25.7 L (42-52) % MCV 100.8 H (80-100) fL MCHC 31.5 L (32-36) g/dL RDW Std Deviation 60.6 H (36.4-46.3) fL RDW Coeff of Leonela 16.6 H (11.5-14.5) % Neutrophils # (Manual) 0.00 L (1.4-6.5) K/uL Total Absolute Neuts 0.00 L* (1.4-6.5) K/uL Lymphocytes # (Manual) 71.16 H (1.2-3.4) K/uL Total Abs Lymphocytes 71.16 H (1.2-3.4) K/uL Chloride (98-107) mmol/L BUN (7-18) mg/dl Creatinine (0.6-1.4) mg/dl POC Glucose 113 H 134 H (70-99) Calcium (8.5-10.1) mg/dl Alkaline Phosphatase (45-117) U/L Total Protein (6.4-8.2) gm/dl Albumin (3.4-5.0) gm/dl 06/05/19 Range/Units 05:49 WBC (4.8-10.8) K/uL RBC (4.7-6.1) M/uL Hgb (14.0-18.0) g/dL Hct (42-52) % MCV (80-100) fL MCHC (32-36) g/dL RDW Std Deviation (36.4-46.3) fL RDW Coeff of Leonela (11.5-14.5) % Neutrophils # (Manual) (1.4-6.5) K/uL Total Absolute Neuts (1.4-6.5) K/uL Lymphocytes # (Manual) (1.2-3.4) K/uL Total Abs Lymphocytes (1.2-3.4) K/uL Chloride 113 H (98-107) mmol/L BUN 20 H (7-18) mg/dl Creatinine 1.50 H (0.6-1.4) mg/dl POC Glucose (70-99) Calcium 8.2 L (8.5-10.1) mg/dl Alkaline Phosphatase 127 H (45-117) U/L Total Protein 5.9 L (6.4-8.2) gm/dl Albumin 2.9 L (3.4-5.0) gm/dl
--- NOTE | 2019-06-05 13:13 | Hospitalist Progress Note ---
Date of Service June 05, 2019 Assessment & Plan (1) CLL (chronic lymphocytic leukemia): - Admitted originally to med surg for chemotherapeutic regimen but unable to give it due to neutropenia and now with agranulocytosis - Consult heme/onc- Dr. Blair-appreciated - Contact precautions for pt safety - was to start venetoclax per onc recommendations, recently stopped Imbruvica due to allergic reaction with rash, now cleared up at this point. HOLDING OFF on starting chemo yet due to neutropenia as above - eventually will need TLS labs after starting chemo (2) Neutropenia: ANC down to 0 now. Unclear etiology, could be allopurinol, but could be infectious cause. He does have a 2 yr old daughter that is currently starting with a viral syndrome and was here in the room with him the first day I saw him Urinalysis negative, blood cultures remain no growth to date, chest x-ray negative - CMV, EBV, [id number] all still pending -follow CBC -cannot start chemo until ANC improves -hold allopurinol (3) Colostomy present: - Wound ostomy nurse consulted for stoma -Patient notes a couple of times where he has no stool output in his ostomy but then is relieved with massaging his abdomen-suspect perhaps some mild adhesive disease -Gave precautions to watch out for bowel obstruction - Follow with Dr. Diggs locally s/p surgery (4) DM type 2 (diabetes mellitus, type 2): - ISS with accuchecks lanres, holding glimepiride during hospitalization - A1C 7.6% -Continue sliding scale insulin - HH/DM diet (5) HTN (hypertension): - Continue lisinopril 5 mg daily BPs controlled (6) Hyperlipidemia: - Cont atorvastatin 40 mg QAM, coenzyme Q10 (7) Hypothyroid: - Cont levothyroxine 25 mcg daily TSH 3.09 in 08/2018 (8) DVT prophylaxis: - teds, lovenox 40 mg subQ CODE: Full code Dispo:continued stay for neutropenia workup Subjective Patient continues to have no complaints. He has a chronic postnasal drip that he notes has been there from long time. No chest pain or shortness of breath, no diarrhea or abdominal pain. He did note a shorter period of time where he had no output and then after massage of his abdomen, had stool coming out. Discussed case again with oncology. Patient understands why he needs to stay in the hospital for further evaluation for agranulocytosis. Review of Systems Review of Systems: All systems reviewed & are unremarkable except as noted in HPI & below Physical Exam Constitutional: WD/WN, vitals as above Eyes: + anicteric sclerae ENMT: external ear and nose normal, oropharynx normal Neck: trachea midline, no thyromegaly Respiratory: normal respiratory effort, lungs clear to auscultation Cardiovascular: RRR, no murmur, no edema Chest (Breasts): Chest: normal inspection of chest and + vascular access device or port Gastrointestinal (Abdomen): normal bowel sounds, soft, nontender, no hepatosplenomegaly (with ostomy with green liquid stool) Musculoskeletal: Extremities: extremities normal to inspection; no cyanosis and no clubbing Skin: + rash (right forearma nd AC fossa with small erythematous circular macules) Neurologic: moves all extremities and awake; no focal motor deficits Psychiatric: A+Ox3, euthymic affect Lymphatic: no lymphedema Results & Data Vital Signs (Past 12 Hours) Vital Signs Temp Pulse Resp BP Pulse Ox 06/05/19 11:16 37.1 C 76 18 121/74 94 06/05/19 06:57 36.6 C 76 18 145/75 H 94 06/05/19 04:00 36.8 C 73 20 132/70 95 Laboratory Results 06/05/19 06/05/19 06/05/19 Range/Units 19:59 16:35 11:38 WBC (4.8-10.8) K/uL RBC (4.7-6.1) M/uL Hgb (14.0-18.0) g/dL Hct (42-52) % MCV (80-100) fL MCH (25-34) pg MCHC (32-36) g/dL RDW Std Deviation (36.4-46.3) fL RDW Coeff of Leonela (11.5-14.5) % Plt Count (130-400) K/uL MPV (7.4-10.4) fL Neutrophils % (Manual) % Lymphocytes % (Manual) % Neutrophils # (Manual) (1.4-6.5) K/uL Total Absolute Neuts (1.4-6.5) K/uL Lymphocytes # (Manual) (1.2-3.4) K/uL Total Abs Lymphocytes (1.2-3.4) K/uL Smudge Cells Anisocytosis Sodium (136-145) mmol/L Potassium (3.5-5.1) mmol/L Chloride (98-107) mmol/L Carbon Dioxide (21-32) mmol/L Anion Gap (3-11) BUN (7-18) mg/dl Creatinine (0.6-1.4) mg/dl Est Cr Clr Drug Dosing ml/min Est GFR ( Amer) Est GFR (Non-Af Amer) BUN/Creatinine Ratio (10-20) Glucose (70-99) mg/dl POC Glucose 164 H 76 255 H (70-99) Calcium (8.5-10.1) mg/dl Total Bilirubin (0.2-1) mg/dl AST (15-37) U/L ALT (12-78) U/L Alkaline Phosphatase (45-117) U/L Total Protein (6.4-8.2) gm/dl Albumin (3.4-5.0) gm/dl Globulin (2.5-4.0) gm/dl Albumin/Globulin Ratio (0.9-2) 06/05/19 06/05/19 06/05/19 Range/Units 07:25 05:49 05:49 WBC 71.16 H* (4.8-10.8) K/uL RBC 2.55 L (4.7-6.1) M/uL Hgb 8.1 L (14.0-18.0) g/dL Hct 25.7 L (42-52) % MCV 100.8 H (80-100) fL MCH 31.8 (25-34) pg MCHC 31.5 L (32-36) g/dL RDW Std Deviation 60.6 H (36.4-46.3) fL RDW Coeff of Leonela 16.6 H (11.5-14.5) % Plt Count 130 (130-400) K/uL MPV 9.5 (7.4-10.4) fL Neutrophils % (Manual) 0.0 % Lymphocytes % (Manual) 100.0 % Neutrophils # (Manual) 0.00 L (1.4-6.5) K/uL Total Absolute Neuts 0.00 L* (1.4-6.5) K/uL Lymphocytes # (Manual) 71.16 H (1.2-3.4) K/uL Total Abs Lymphocytes 71.16 H (1.2-3.4) K/uL Smudge Cells Present Anisocytosis Present Sodium 143 (136-145) mmol/L Potassium 3.6 (3.5-5.1) mmol/L Chloride 113 H (98-107) mmol/L Carbon Dioxide 27 (21-32) mmol/L Anion Gap 3.0 (3-11) BUN 20 H (7-18) mg/dl Creatinine 1.50 H (0.6-1.4) mg/dl Est Cr Clr Drug Dosing 64.6 ml/min Est GFR ( Amer) 57.0 Est GFR (Non-Af Amer) 49.2 BUN/Creatinine Ratio 13.1 (10-20) Glucose 79 (70-99) mg/dl POC Glucose 93 (70-99) Calcium 8.2 L (8.5-10.1) mg/dl Total Bilirubin 0.8 (0.2-1) mg/dl AST 17 (15-37) U/L ALT 20 (12-78) U/L Alkaline Phosphatase 127 H (45-117) U/L Total Protein 5.9 L (6.4-8.2) gm/dl Albumin 2.9 L (3.4-5.0) gm/dl Globulin 3.0 (2.5-4.0) gm/dl Albumin/Globulin Ratio 1.0 (0.9-2) PG Care Time/CCT Total # of Minutes Spent Total Time Spent with Patient: Total time spent is greater than 50% in coordination of care (as documented) at patient's floor/unit and/or counseling patient: (1) HTN (hypertension) Hypertension type: essential hypertension Qualified Code(s): I10 - Essential (primary) hypertension
[2019-06-05] MEDS: CYANOCOBALAMIN 500 MCG TABLET (VITAMIN B-12) PO SCH (21:29)
[2019-06-06] MEDS: HEPARIN 100 UNIT/ML 5ML FLUSH FLUSH PRN (05:35)
[2019-06-06 06:08] LABS: Hematocrit (blood only) 25.3 % (42-52); Hemoglobin 8.3 g/dL (14.0-18.0); Mean Corpuscular Hemoglobin 32.3 pg (25-34); Mean Corpuscular Hgb Conc 32.8 g/dL (32-36); Mean Corpuscular Volume 98.4 fL (80-100); Mean Platelet Volume 9.2 fL (7.4-10.4); Platelet Count 123 K/uL (130-400); RDW Standard Deviation 59.3 fL (36.4-46.3); Red Blood Count 2.57 M/uL (4.7-6.1); White Blood Count 66.06 K/uL (4.8-10.8)
[2019-06-06 06:32] LABS: Albumin Level 2.9 gm/dl (3.4-5.0); Creatinine Clr Calc Pharmacy 64.6 ml/min; Est GFR (Non-African American) 49.2; Potassium 3.6 mmol/L (3.5-5.1)
[2019-06-06 06:34] LABS: Albumin Globulin Ratio 0.9 (0.9-2); Bilirubin,Total 0.8 mg/dl (0.2-1); Globulin 3.1 gm/dl (2.5-4.0)
[2019-06-06 06:40] LABS: Smudge Cells Present
[2019-06-06 06:44] LABS: ALC (manual) 66.06 K/uL (1.2-3.4); Lymphocytes # (manual) 66.06 K/uL (1.2-3.4)
[2019-06-06] MEDS: LEVOTHYROXINE SODIUM 50 MCG TABLET PO SCH (06:51)
[2019-06-06] MEDS: ATORVASTATIN 40 MG TAB PO SCH (07:48)
[2019-06-06] MEDS: MULTIVITAMIN TAB PO SCH (07:48)
[2019-06-06] MEDS: ENOXAPARIN INJ 40 MG/0.4 ML SYR SQ SCH (07:48)
[2019-06-06] MEDS: lisinopriL 5 MG TAB PO SCH (07:48)
[2019-06-06] MEDS: INSULIN ASPART 100 UNITS/ML 3 ML PEN SC SCH ×4 (08:58→20:53)
--- NOTE | 2019-06-06 11:43 | Hospitalist Progress Note ---
Date of Service June 06, 2019 Assessment & Plan (1) CLL (chronic lymphocytic leukemia): - Admitted originally to med surg for chemotherapeutic regimen but unable to give it due to neutropenia and now with persistent agranulocytosis of unknown etiology - Consult heme/onc- Dr. Blair-appreciated -Continue neutropenic precautions - was to start venetoclax per onc recommendations, recently stopped Imbruvica due to allergic reaction with rash, now cleared up at this point. HOLDING OFF on starting chemo yet due to neutropenia as above - eventually will need TLS labs after starting chemo (2) Neutropenia: ANC down to 02 days in a row. Unclear etiology, could be allopurinol, but could be infectious cause. He has no signs or symptoms of infection -He remains afebrile Urinalysis negative, blood cultures remain no growth to date, chest x-ray negative - CMV, EBV, [id number] all still pending -Checking varicella-zoster PCR in the morning given intermittent recurrent rash on right arm that is vesicular -follow CBC -cannot start chemo until ANC improves -hold allopurinol and if this is truly the culprit, question if he will be able to even undergo this chemotherapy in the future as he would not be able to take allopurinol -He does have a history of rectal abscess with perforation for which he had surgery and eventually diverting colostomy 3 months ago-if no improvement, consider reimaging of the abdomen and pelvis with CT scan even if no fevers -As per oncology recommendation, will give Neupogen 480 mcg SQ x1 today (3) Colostomy present: - Wound ostomy nurse consulted for stoma -Patient notes a couple of times where he has no stool output in his ostomy but then is relieved with massaging his abdomen-suspect perhaps some mild adhesive disease -Gave precautions to watch out for bowel obstruction - Follow with Dr. Diggs locally s/p surgery (4) DM type 2 (diabetes mellitus, type 2): - ISS with accuchecks achs, holding glimepiride during hospitalization - A1C 7.6% Blood glucose here is fairly well controlled -Continue sliding scale insulin - HH/DM diet (5) HTN (hypertension): - Continue lisinopril 5 mg daily BPs controlled (6) Hyperlipidemia: - Cont atorvastatin 40 mg QAM, coenzyme Q10 (7) Hypothyroid: - Cont levothyroxine 25 mcg daily TSH 3.09 in 08/2018 (8) Chronic kidney disease: Chronic kidney disease stage III Creatinine remains stable around baseline of 1.5 (9) Anemia: Chronic and stable at 8.3 for hemoglobin today Secondary to CLL -Follow CBC and transfuse if less than 7.5 (10) Thrombocytopenia: Platelets mildly low and stable at 123 today, secondary to CLL Follow CBC (11) Lower extremity edema: Chronic and stable, left greater than right Echocardiogram done at [place] several months ago shows preserved EF Albumin is low here at 2.9 which could account for some of his pitting edema He also received copious IV fluids for the first day or so of his stay here in preparation for chemotherapy-these have since been stopped Sounds like chronic venous stasis (12) Rash: With rash that comes and goes on his hands and right forearm and antecubital fossa chronically that usually starts with vesicles and ends with multiple macular circular lesions -Advised him to take a picture of the current rash and make an appointment as an outpatient with dermatology This rash is not pruritic or painful Question if this is some sort of recurrent herpes zoster? -Check varicella studies in the morning (13) DVT prophylaxis: - teds, lovenox 40 mg subQ CODE: Full code Dispo:continued stay for neutropenia workup Subjective Unfortunately, patient remains agranulocytic and is disappointed by this. He continues to have no signs or symptoms of any infectious process at this time. His daughter who was fussy the other day and was suspected to have viral illness is now completely back to normal and never had a fever or rash. He denies chest pain or shortness of breath. He has chronic lower extremity edema which is similar to previous. He denies headache after getting some caffeinated coffee this morning. Still has the same chronic cough but no worse. He is making stool in his colostomy and denies abdominal pain. I discussed his case again with his oncologist, Dr. Blair, today who recommended giving Neupogen x1 dose. He also recommends keeping the patient in the hospital until neutrophil count start to come up Review of Systems Review of Systems: All systems reviewed & are unremarkable except as noted in HPI & below Physical Exam Constitutional: WD/WN, vitals as above Eyes: + anicteric sclerae ENMT: external ear and nose normal, oropharynx normal Neck: trachea midline, no thyromegaly Respiratory: normal respiratory effort, lungs clear to auscultation Cardiovascular: RRR, no murmur, no edema Chest (Breasts): Chest: normal inspection of chest and + vascular access device or port Gastrointestinal (Abdomen): normal bowel sounds, soft, nontender, no hepatosplenomegaly (with ostomy with green liquid stool) Musculoskeletal: Extremities: extremities normal to inspection; no cyanosis and no clubbing Skin: + rash (right forearma nd AC fossa with small erythematous circular macules) Neurologic: moves all extremities and awake; no focal motor deficits Psychiatric: A+Ox3, euthymic affect Lymphatic: + cervical lymphadenopathy (Bilateral large bulky lymphadenopathy); no lymphedema Results & Data Vital Signs (Past 12 Hours) Vital Signs Temp Pulse Resp BP BP Pulse Ox 06/06/19 11:00 36.8 C 67 18 127/75 96 06/06/19 07:00 36.8 C 72 18 128/78 95 06/06/19 03:57 36.7 C 68 20 136/79 94 Laboratory Results 06/06/19 06/06/19 06/06/19 Range/Units 19:38 16:46 11:57 WBC (4.8-10.8) K/uL RBC (4.7-6.1) M/uL Hgb (14.0-18.0) g/dL Hct (42-52) % MCV (80-100) fL MCH (25-34) pg MCHC (32-36) g/dL RDW Std Deviation (36.4-46.3) fL RDW Coeff of Leonela (11.5-14.5) % Plt Count (130-400) K/uL MPV (7.4-10.4) fL Neutrophils % (Manual) % Lymphocytes % (Manual) % Neutrophils # (Manual) (1.4-6.5) K/uL Total Absolute Neuts (1.4-6.5) K/uL Lymphocytes # (Manual) (1.2-3.4) K/uL Total Abs Lymphocytes (1.2-3.4) K/uL Smudge Cells Sodium (136-145) mmol/L Potassium (3.5-5.1) mmol/L Chloride (98-107) mmol/L Carbon Dioxide (21-32) mmol/L Anion Gap (3-11) BUN (7-18) mg/dl Creatinine (0.6-1.4) mg/dl Est Cr Clr Drug Dosing ml/min Est GFR ( Amer) Est GFR (Non-Af Amer) BUN/Creatinine Ratio (10-20) Glucose (70-99) mg/dl POC Glucose 132 H 165 H 167 H (70-99) Calcium (8.5-10.1) mg/dl Total Bilirubin (0.2-1) mg/dl AST (15-37) U/L ALT (12-78) U/L Alkaline Phosphatase (45-117) U/L Total Protein (6.4-8.2) gm/dl Albumin (3.4-5.0) gm/dl Globulin (2.5-4.0) gm/dl Albumin/Globulin Ratio (0.9-2) 06/06/19 06/06/19 06/06/19 Range/Units 07:44 05:37 05:37 WBC 66.06 H* (4.8-10.8) K/uL RBC 2.57 L (4.7-6.1) M/uL Hgb 8.3 L (14.0-18.0) g/dL Hct 25.3 L (42-52) % MCV 98.4 (80-100) fL MCH 32.3 (25-34) pg MCHC 32.8 (32-36) g/dL RDW Std Deviation 59.3 H (36.4-46.3) fL RDW Coeff of Leonela 17.0 H (11.5-14.5) % Plt Count 123 L (130-400) K/uL MPV 9.2 (7.4-10.4) fL Neutrophils % (Manual) 0.0 % Lymphocytes % (Manual) 100.0 % Neutrophils # (Manual) 0.00 L (1.4-6.5) K/uL Total Absolute Neuts 0.00 L* (1.4-6.5) K/uL Lymphocytes # (Manual) 66.06 H (1.2-3.4) K/uL Total Abs Lymphocytes 66.06 H (1.2-3.4) K/uL Smudge Cells Present Sodium 144 (136-145) mmol/L Potassium 3.6 (3.5-5.1) mmol/L Chloride 113 H (98-107) mmol/L Carbon Dioxide 28 (21-32) mmol/L Anion Gap 3.0 (3-11) BUN 20 H (7-18) mg/dl Creatinine 1.50 H (0.6-1.4) mg/dl Est Cr Clr Drug Dosing 64.6 ml/min Est GFR ( Amer) 57.0 Est GFR (Non-Af Amer) 49.2 BUN/Creatinine Ratio 13.0 (10-20) Glucose 122 H (70-99) mg/dl POC Glucose 127 H (70-99) Calcium 8.0 L (8.5-10.1) mg/dl Total Bilirubin 0.8 (0.2-1) mg/dl AST 17 (15-37) U/L ALT 19 (12-78) U/L Alkaline Phosphatase 137 H (45-117) U/L Total Protein 6.0 L (6.4-8.2) gm/dl Albumin 2.9 L (3.4-5.0) gm/dl Globulin 3.1 (2.5-4.0) gm/dl Albumin/Globulin Ratio 0.9 (0.9-2) PG Care Time/CCT Total # of Minutes Spent Total Time Spent with Patient: Total time spent is greater than 50% in coordination of care (as documented) at patient's floor/unit and/or counseling patient: (1) HTN (hypertension) Hypertension type: essential hypertension Qualified Code(s): I10 - Essential (primary) hypertension
[2019-06-06] MEDS ORDERED: FILGRASTIM 480 MCG/1.6 ML VIAL SC ONE (12:30)
[2019-06-06] MEDS: CYANOCOBALAMIN 500 MCG TABLET (VITAMIN B-12) PO SCH (20:44)
[2019-06-07] MEDS: HEPARIN 100 UNIT/ML 5ML FLUSH FLUSH PRN (05:21)
[2019-06-07] MEDS: LEVOTHYROXINE SODIUM 25 MCG TABLET PO SCH (06:19)
[2019-06-07 06:31] LABS: Hematocrit (blood only) 25.6 % (42-52); Hemoglobin 8.4 g/dL (14.0-18.0); Mean Corpuscular Hemoglobin 33.1 pg (25-34); Mean Corpuscular Hgb Conc 32.8 g/dL (32-36); Mean Corpuscular Volume 100.8 fL (80-100); Mean Platelet Volume 9.6 fL (7.4-10.4); Platelet Count 144 K/uL (130-400); RDW Standard Deviation 59.7 fL (36.4-46.3); Red Blood Count 2.54 M/uL (4.7-6.1); White Blood Count 76.21 K/uL (4.8-10.8)
[2019-06-07 06:49] LABS: BUN Creatinine Ratio 13.7 (10-20); Calcium 8.2 mg/dl (8.5-10.1); Creatinine Clr Calc Pharmacy 61.4 ml/min; Est GFR (Non-African American) 46.6; Potassium 3.6 mmol/L (3.5-5.1)
[2019-06-07 07:08] LABS: Ovalocytes 1+; Smudge Cells Present
[2019-06-07 07:14] LABS: ALC (manual) 76.21 K/uL (1.2-3.4); Lymphocytes # (manual) 76.21 K/uL (1.2-3.4)
[2019-06-07] MEDS: ATORVASTATIN 40 MG TAB PO SCH (08:47)
[2019-06-07] MEDS: MULTIVITAMIN TAB PO SCH (08:47)
[2019-06-07] MEDS: ENOXAPARIN INJ 40 MG/0.4 ML SYR SQ SCH (08:48)
[2019-06-07] MEDS: lisinopriL 5 MG TAB PO SCH (08:51)
[2019-06-07] MEDS: INSULIN ASPART 100 UNITS/ML 3 ML PEN SC SCH ×4 (08:52→22:28)
--- NOTE | 2019-06-07 10:35 | Hospitalist Progress Note ---
Date of Service June 07, 2019 Assessment & Plan (1) CLL (chronic lymphocytic leukemia): - Admitted originally to med surg for chemotherapeutic regimen but unable to give it due to neutropenia and now with persistent agranulocytosis of unknown etiology - Consulted heme/onc- Dr. Blair -Continue neutropenic precautions - was to start venetoclax per onc recommendations, recently stopped Imbruvica due to allergic reaction with rash, now cleared up at this point. HOLDING OFF on starting chemo yet due to neutropenia as above - will put in TLS labs for tomorrow morning, will need after starting chemo as well (2) Neutropenia: ANC 0.0 again today. Unclear etiology, could be allopurinol, but could be infectious cause. Afebrile, no clear symptoms of infection Urinalysis negative, blood cultures remain no growth to date, chest x-ray negati ve, cdiff pending - CMV, EBV, [id number] all still pending -Checking varicella-zoster PCR given intermittent recurrent rash on right arm that is vesicular - pending -hold allopurinol and if this is truly the culprit, question if he will be able to even undergo this chemotherapy in the future as he would not be able to take allopurinol -He does have a history of rectal abscess with perforation for which he had surgery and eventually diverting colostomy 3 months ago -As per oncology recommendation, given Neupogen 480 mcg SQ x1 06/06, will repeat today per their rec (3) Colostomy present: - Wound ostomy nurse consulted for stoma -Patient notes a couple of times where he has no stool output in his ostomy but then is relieved with massaging his abdomen-suspect perhaps some mild adhesive disease -Gave precautions to watch out for bowel obstruction - Follow with Dr. Diggs locally s/p surgery (4) DM type 2 (diabetes mellitus, type 2): - ISS with accuchecks achs, holding glimepiride during hospitalization - A1C 7.6% Blood glucose here is fairly well controlled -Continue sliding scale insulin - HH/DM diet (5) HTN (hypertension): - Continue lisinopril 5 mg daily BPs controlled (6) Hyperlipidemia: - Cont atorvastatin 40 mg QAM, coenzyme Q10 (7) Hypothyroid: - Cont levothyroxine 25 mcg daily TSH 3.09 in 08/2018 (8) Chronic kidney disease: Chronic kidney disease stage III Creatinine remains stable around baseline of 1.5 (9) Anemia: Chronic and stable Secondary to CLL -Follow CBC and transfuse if less than 7.5 (10) Thrombocytopenia: Platelets mildly low and stable, secondary to CLL Follow CBC (11) Lower extremity edema: Chronic and stable, left greater than right Echocardiogram done at [place] several months ago shows preserved EF Albumin is low here at 2.9 which could account for some of his pitting edema He also received copious IV fluids for the first day or so of his stay here in preparation for chemotherapy-these have since been stopped Sounds like chronic venous stasis (12) Rash: With rash that comes and goes on his hands and right forearm and antecubital fossa -Advised him to take a picture of the current rash and make an appointment as an outpatient with dermatology This rash is not pruritic or painful Question if this is some sort of recurrent herpes zoster? -varicella studies pending (13) DVT prophylaxis: - teds, lovenox 40 mg subQ CODE: Full code Dispo:continued stay for neutropenia workup Subjective Mr. Gray has no complaints this morning. He has a chronic cough which he reports is unchanged - moist in the morning when he wakes up but no sputum production. No aches or chills or fevers. No nausea or vomiting. He has liquid output from his ostomy which he says is usual for him. No pain anywhere. He has a rash on his posterior right arm which he says he sees a lot on his hands but not usually on his arms. It is not pruritic or painful. ROS Constitutional: See HPI Respiratory: See HPI Cardiac: no chest pain, palpitations, edema, orthopnea or lightheadedness GI: See HPI : no dysuria or hesitancy Extremities: no joint pain or weakness Skin: no rash All other systems reviewed and negative Physical Exam Physical Exam: General: no distress Eyes: normal inspection, PERLL Respiratory: chest non tender, clear to auscultation, normal breath sounds, no respiratory distress, no accessory muscle use Cardiac: regular rate and rhythm, no rub or gallop, no murmur, no edema, no jvd GI/: active bowel sounds, no abd pain or tenderness, soft, non distended Extremities: normal range of motion, normal strength, non tender Neuro/Psych: alert and oriented x 3, normal mood and affect Skin: normal color, dry, right inner arm with small red papules Results & Data Vital Signs (Past 12 Hours) Vital Signs Temp Pulse Resp BP Pulse Ox 06/07/19 07:13 36.9 C 80 16 123/68 95 06/07/19 03:56 36.9 C 77 20 131/73 93 06/06/19 22:56 36.9 C 72 20 128/70 95 PG Care Time/CCT Total # of Minutes Spent Total Time Spent with Patient: Total time spent is greater than 50% in coordination of care (as documented) at patient's floor/unit and/or counseling patient: (1) HTN (hypertension) Hypertension type: essential hypertension Qualified Code(s): I10 - Essential (primary) hypertension
[2019-06-07] MEDS ORDERED: FILGRASTIM 480 MCG/1.6 ML VIAL SC ONE ×2 (11:00→11:04)
[2019-06-07] MEDS: CYANOCOBALAMIN 500 MCG TABLET (VITAMIN B-12) PO SCH (21:25)
[2019-06-08] MEDS: HEPARIN 100 UNIT/ML 5ML FLUSH FLUSH PRN (05:28)
[2019-06-08] MEDS: LEVOTHYROXINE SODIUM 50 MCG TABLET PO SCH (05:39)
[2019-06-08 06:44] LABS: Magnesium 1.7 mg/dl (1.8-2.4); Phosphorus 3.7 mg/dl (2.5-4.9)
[2019-06-08] MEDS: ATORVASTATIN 40 MG TAB PO SCH (08:27)
[2019-06-08] MEDS: MULTIVITAMIN TAB PO SCH (08:27)
[2019-06-08] MEDS: lisinopriL 5 MG TAB PO SCH (08:27)
[2019-06-08] MEDS: ENOXAPARIN INJ 40 MG/0.4 ML SYR SQ SCH (08:28)
[2019-06-08] MEDS: INSULIN ASPART 100 UNITS/ML 3 ML PEN SC SCH ×4 (08:29→20:41)
[2019-06-08 09:38] LABS: Albumin Level 3.1 gm/dl (3.4-5.0); BUN Creatinine Ratio 14.9 (10-20); Calcium 8.7 mg/dl (8.5-10.1); Creatinine Clr Calc Pharmacy 61.5 ml/min; Est GFR (African American) 54.4; Est GFR (Non-African American) 46.9; Potassium 3.7 mmol/L (3.5-5.1)
[2019-06-08 09:40] LABS: Bilirubin,Total 1.3 mg/dl (0.2-1); Hematocrit (blood only) 26.8 % (42-52); Hemoglobin 8.5 g/dL (14.0-18.0); Mean Corpuscular Hemoglobin 32.2 pg (25-34); Mean Corpuscular Hgb Conc 31.7 g/dL (32-36); Mean Corpuscular Volume 101.5 fL (80-100); Mean Platelet Volume 9.8 fL (7.4-10.4); Platelet Count 146 K/uL (130-400); RDW Coefficient of Variation 17.2 % (11.5-14.5); RDW Standard Deviation 61.1 fL (36.4-46.3); Red Blood Count 2.64 M/uL (4.7-6.1); Total Protein 6.1 gm/dl (6.4-8.2)
[2019-06-08 10:07] LABS: ALC (manual) 76.58 K/uL (1.2-3.4); ANC (manual) 1.32 K/uL (1.4-6.5); Lymphocytes # (manual) 76.58 K/uL (1.2-3.4); Lymphocytes % (manual) 98.3 %; Neutrophils # (manual) 1.32 K/uL (1.4-6.5); Neutrophils % (manual) 1.7 %; Ovalocytes 1+; Smudge Cells Present
[2019-06-08] MEDS ORDERED: MAGNESIUM SULFATE / D5W 1 GM/100 ML BAG IV ONE (10:15)
--- NOTE | 2019-06-08 13:25 | Discharge Summary ---
Date of Service June 09, 2019 Admission HPI Per Admitting Provider This is a 63 yo M with PMHx of CLL, originally diagnosed in December 2013, who presents for routine chemotherapy with high risk for tumor lysis syndrome. Per outside records the patient was previously on Zydelig therapy during Dec 2018. This therapy was restarted after a break from November-Jan 2019 in the attempt to have another child. His disease progressed therefore was restarted on chemotherapy. In Dec 2018 he presented to [facility] for anal/rectal perforation with an associated abscess and required transfer to [facility]. Zydelig was stopped as it was probable that it caused the rare, likely < 1%, adverse effect. While at [facility] he underwent diverting colostomy and debridement of the abscess.He follows with Dr. Diggs, who recently saw him with hopes of seton removal as well as possible reversal of the colostomy. The patient presents today for administration of ventoclax. We will consult hematology/oncology during his stay here as there is high risk for tumor lysis syndrome. Pt is present with his , daughter (2.5 yo) and son ( 1 mo. old). Principal Diagnosis Neutropenia Discharge Exam Constitutional WD/WN, vitals as above Respiratory normal respiratory effort, lungs clear to auscultation Cardiovascular RRR, no murmur, no edema Gastrointestinal (Abdomen) Inspection/Auscultation: abdomen normal to inspection and normal bowel sounds; abdomen not distended Percussion/Palpation: abdomen soft; abdomen nontender and no guarding Musculoskeletal no cyanosis or clubbing, extremities motor strength 5/5 Neurologic moves all extremities and awake Psychiatric A+Ox3, euthymic affect Discharge Data Allergies Allergy/AdvReac Type Severity Reaction Status Date / Time No Known Allergies Allergy Verified 02/24/19 14:38 Consultations 06/03/19 11:48 Consult Case Management - Discharge Planning Routine 06/03/19 12:13 Consult Oncology Routine Hospital Course (1) CLL (chronic lymphocytic leukemia): - Admitted originally to med surg for chemotherapeutic regimen but unable to give it due to neutropenia and persistent agranulocytosis of unknown etiology - Consulted heme/onc- Dr. Blair - Neutrophils improved yesterday but decreased again today - was to start venetoclax per onc recommendations, recently stopped Imbruvica due to allergic reaction with rash, now cleared up at this point. HOLDING OFF on starting chemo yet due to neutropenia as above - uric acid, phos, calcium, kidney function all stable (2) Neutropenia: ANC improved to 1.3 06/08 but decreased to 0.5 again today. Unclear etiology, possibly allopurinol vs metastasis to bone marrow Afebrile, no clear symptoms of infection Urinalysis negative, blood cultures remain no growth to date, chest x-ray negative, cdiff negative - CMV level wnl, [id number] showed elevated IgG but normal IgM and no virus detected likely indicating previous infection but not current, EBV showing past infection -Checking varicella-zoster PCR given intermittent recurrent rash on right arm that is vesicular - pending -hold allopurinol and if this is truly the culprit, question if he will be able to even undergo this chemotherapy in the future as he would not be able to take allopurinol -He does have a history of rectal abscess with perforation for which he had surgery and eventually diverting colostomy 3 months ago -As per oncology recommendation, given Neupogen 480 mcg SQ x1 06/06, 06/07, and 06/09 (3) Colostomy present: - Wound ostomy nurse consulted for stoma -Patient notes a couple of times where he has no stool output in his ostomy but then is relieved with massaging his abdomen-suspect perhaps some mild adhesive disease - Follow with Dr. Diggs locally s/p surgery - discussed with him ostomy herniation and issue with stool output pre hospital - recommended CT abd 06/08 which showed: 1. Rather significant progression of adenopathy within the abdomen and pelvic regions. 2. Splenomegaly slightly progressive from the prior study. 3. Left anterior ostomy showing a loop of small bowel within the subcutaneous tissues with associated narrowing of the ostomy lumen itself. The possibility of an early obstructive pattern is not completely excluded. 4. The bowel pattern at this time specifically is nonobstructive. Followed up on CT findings with Dr. Diggs today - nothing today except educate patient on s/s of obstruction which I did. Further surgery would be a last resort and only if there were obstruction or loops of bowel appeared dilated on further imaging. (4) DM type 2 (diabetes mellitus, type 2): - ISS with accuchecks achs, holding glimepiride during hospitalization - A1C 7.6% Blood glucose here is fairly well controlled -Continue sliding scale insulin - HH/DM diet (5) HTN (hypertension): - Continue lisinopril 5 mg daily BPs controlled (6) Hyperlipidemia: - Cont atorvastatin 40 mg QAM, coenzyme Q10 (7) Hypothyroid: - Cont levothyroxine 25 mcg daily TSH 3.09 in 08/2018 (8) Chronic kidney disease: Chronic kidney disease stage III Creatinine remains stable around baseline of 1.5 (9) Anemia: Chronic and stable Secondary to CLL (10) Thrombocytopenia: Platelets mildly low and stable, secondary to CLL (11) Lower extremity edema: Chronic and stable, left greater than right Echocardiogram done at [place] several months ago shows preserved EF Albumin is low here at 2.9 which could account for some of his pitting edema Likely chronic venous stasis (12) Rash: With rash that comes and goes on his hands and right forearm and antecubital fossa -Advised him to take a picture of the current rash and make an appointment as an outpatient with dermatology This rash is not pruritic or painful Question if this is some sort of recurrent herpes zoster? -varicella studies pending (13) Hypokalemia: Replaced - repeat prp tomorrow outpatient (14) DVT prophylaxis: - teds, lovenox 40 mg subQ CODE: Full code Total Time Total Time Spent Total Time Spent (In Minutes): greater than 30 minutes Discharge Plan Discharge Items Patient Disposition: Home - Self-Care Reason For Visit: ORAL CHEMO Discharge Diagnosis: Neutropenia Activity: Resume your previous activity Non-emergency contact: Primary Care Provider Call non-emergency contact if: you have any medication questions, your symptoms worsen and you have a fever Follow-up/Referrals: Vinine Crawford MD [Primary Care Provider] - 06/10/19 10:00 am (A follow up appt. has been made for you with Ruby Zapien PA-C on Jun.10 at 10:00am.) Jose Alejandro Blair [Physician] - 06/14/19 9:50 am (Dr. Blair's office states that your appt. is for at 9:50am.) Diet: Carb Consistent or DM2 Ambulatory Orders: Complete Blood Count with Diff (Routine) Timeframe: 20190610 Location: Determined by Patient Ordered By: Violette Crawford Comprehensive Metabolic Panel (Routine) Timeframe: 20190610 Location: Determined by Patient Ordered By: Violette Fitzgerald Attending Provider Instructions: (1) CLL (chronic lymphocytic leukemia): Please follow up with Dr. Blair on Friday and get the above lab work drawn at that time. (2) Neutropenia: Please call Dr. Blair or report to the emergency department if you run a fever. You should try to avoid crowds and anyone who is ill until your neutrophil count improves. You and your family should practice good hand hygiene. Please see attached information concerning neutropenic precautions (3) Colostomy present: - Watch out for bowel obstruction - call your surgeon if you do not have any output in 24 hours or if you develop nausea and vomiting - Please follow up Dr. Diggs (4) Rash: Please follow up with your cotton presser Pending Studies at Discharge: Yes Studies:: Varicella zoster virus serologies Stand-Alone Forms: My [facility] [employer], Smoking Cessation Medications and DC Order Prescriptions: Continued glimepiride 2 mg tablet 4 mg PO QAM Qty: 60 RF: 6 lisinopril 5 mg tablet 5 mg PO QAM Qty: 90 RF: 3 multivitamin Tablet 1 tab PO QAM RF: 0 atorvastatin 40 mg Tablet 40 mg PO QAM RF: 0 cyanocobalamin (vitamin B-12) 1,000 mcg Tablet 1,000 mcg PO PM RF: 0 coenzyme Q10 [Co Q-10] 100 mg Capsule 100 mg PO QPM RF: 0 [id number] [krill oil] [id number] mg Capsule 1 cap PO QAM RF: 0 levothyroxine 25 mcg Tablet 25 mcg PO UD RF: 0 levothyroxine 50 mcg tablet 50 mcg PO UD RF: 0 Discontinued allopurinol 300 mg Tablet 300 mg PO DAILY RF: 0 Discharge Orders: Discharge Order (Routine); Ordered 06/09/19 Ordered By: Violette Price/Other Patient Handouts: Neutropenia Admission Data Admit Date/Time: 06/03/19 11:48 Attending Provider: Star Higginbotham Admit Provider: Opal Newton Primary Care Provider: Vinnie Crawford Other Providers: Jose Alejandro Blair Other Interventions: Discharge Summary Assessment (RN) Last Done: 06/09/19 10:59 DC Date/Time DO NOT enter until pt leaves facility: 06/09/19 11:57 Supervising Physician Co-Signing Physician Notes I supervised Violette Crawford NP on this patient's care. I examined the patient today independently of her. I discussed the plan of care with her with the plan being as written in her note except for any following changes/exceptions: None. Patient very much wants to go home today. He will see Dr. Blair in the clinic tomorrow for retesting of his counts. CT a/p was reviewed verbally with his [facility] surgeons who feel he does not need further surgery at this time and to monitor for obstruction.
[2019-06-08 14:16] LABS: CMV IgG Antibody <0.60 U/mL; CMV IgM Antibody <30.00 AU/mL; Parvovirus B19 Qual Source Serum; Parvovirus B19 Qualitative Not Detected (Not Detected); Parvovirus IgG 1.6 (<0.9); Parvovirus IgM 0.5 (<0.9)
--- NOTE | 2019-06-08 17:00 | Hematology/Oncology Prog Note ---
Date of Service June 08, 2019 Assessment & Plan (1) CLL (chronic lymphocytic leukemia): His ANC is up today. I suspect his agranulocytosis was related to allopurinol. It should continue to recover now that his cells have started to return. I would like to have him return to the office on Friday for another CBC, to make sure his counts are still trending up. Once he's fully recovered, we can discuss the timing of starting his venetoclax. Subjective Mr. Gray was comfortable in his bed when I saw him this morning. He had no fevers overnight. He denied any mouth sores or new cough or shortness of breath. He does have some discomfort at the site of his parastomal hernia, though he denied any pain or tenderness there. He had no other new complaints and felt well today. Review of Systems Review of Systems: Pertinent positives as per HPI. Physical Exam Constitutional: healthy appearing and comfortable; no acute distress ENMT: external ear and nose normal, oropharynx normal Respiratory: normal respiratory effort, lungs clear to auscultation Cardiovascular: RRR, no murmur, no edema Gastrointestinal (Abdomen): Inspection/Auscultation: normal bowel sounds Percussion/Palpation: abdomen soft; abdomen nontender Skin: no rashes, warm and dry Psychiatric: A+Ox3, euthymic affect Lymphatic: + cervical lymphadenopathy (bilateral) Results & Data Vital Signs (Past 12 Hours) Vital Signs Temp Pulse Pulse Resp BP Pulse Ox 06/08/19 15:00 36.6 C 69 18 129/86 95 06/08/19 13:53 36.6 C 75 76 18 152/75 H 95 06/08/19 11:30 36.6 C 76 18 152/75 H 95 06/08/19 07:09 36.7 C 73 16 143/82 H 94 Laboratory Results Abnormal lab results 06/04/19 06/04/19 06/07/19 Range/Units 11:31 11:31 17:25 WBC (4.8-10.8) K/uL RBC (4.7-6.1) M/uL Hgb (14.0-18.0) g/dL Hct (42-52) % MCV (80-100) fL MCHC (32-36) g/dL RDW Std Deviation (36.4-46.3) fL RDW Coeff of Leonela (11.5-14.5) % Neutrophils # (Manual) (1.4-6.5) K/uL Total Absolute Neuts (1.4-6.5) K/uL Lymphocytes # (Manual) (1.2-3.4) K/uL Total Abs Lymphocytes (1.2-3.4) K/uL Chloride (98-107) mmol/L BUN (7-18) mg/dl Creatinine (0.6-1.4) mg/dl Glucose (70-99) mg/dl POC Glucose 106 H (70-99) Magnesium (1.8-2.4) mg/dl Total Bilirubin (0.2-1) mg/dl AST (15-37) U/L Alkaline Phosphatase (45-117) U/L Total Protein (6.4-8.2) gm/dl Albumin (3.4-5.0) gm/dl EBV Capsid Ag IgG Ab 473.00 H U/mL EBV Nuclear Antigen Ab 163.00 H U/mL Parvovirus IgG Ab Index 1.6 H (<0.9) 06/07/19 06/08/19 06/08/19 Range/Units 20:32 05:27 05:27 WBC 77.90 H* (4.8-10.8) K/uL RBC 2.64 L (4.7-6.1) M/uL Hgb 8.5 L (14.0-18.0) g/dL Hct 26.8 L (42-52) % MCV 101.5 H (80-100) fL MCHC 31.7 L (32-36) g/dL RDW Std Deviation 61.1 H (36.4-46.3) fL RDW Coeff of Leonela 17.2 H (11.5-14.5) % Neutrophils # (Manual) 1.32 L (1.4-6.5) K/uL Total Absolute Neuts 1.32 L (1.4-6.5) K/uL Lymphocytes # (Manual) 76.58 H (1.2-3.4) K/uL Total Abs Lymphocytes 76.58 H (1.2-3.4) K/uL Chloride 111 H (98-107) mmol/L BUN 23 H (7-18) mg/dl Creatinine 1.56 H (0.6-1.4) mg/dl Glucose 121 H (70-99) mg/dl POC Glucose 113 H (70-99) Magnesium (1.8-2.4) mg/dl Total Bilirubin 1.3 H D (0.2-1) mg/dl AST 13 L (15-37) U/L Alkaline Phosphatase 143 H (45-117) U/L Total Protein 6.1 L (6.4-8.2) gm/dl Albumin 3.1 L (3.4-5.0) gm/dl EBV Capsid Ag IgG Ab U/mL EBV Nuclear Antigen Ab U/mL Parvovirus IgG Ab Index (<0.9) 06/08/19 06/08/19 06/08/19 Range/Units 05:28 07:38 11:39 WBC (4.8-10.8) K/uL RBC (4.7-6.1) M/uL Hgb (14.0-18.0) g/dL Hct (42-52) % MCV (80-100) fL MCHC (32-36) g/dL RDW Std Deviation (36.4-46.3) fL RDW Coeff of Leonela (11.5-14.5) % Neutrophils # (Manual) (1.4-6.5) K/uL Total Absolute Neuts (1.4-6.5) K/uL Lymphocytes # (Manual) (1.2-3.4) K/uL Total Abs Lymphocytes (1.2-3.4) K/uL Chloride (98-107) mmol/L BUN (7-18) mg/dl Creatinine (0.6-1.4) mg/dl Glucose (70-99) mg/dl POC Glucose 128 H 170 H (70-99) Magnesium 1.7 L (1.8-2.4) mg/dl Total Bilirubin (0.2-1) mg/dl AST (15-37) U/L Alkaline Phosphatase (45-117) U/L Total Protein (6.4-8.2) gm/dl Albumin (3.4-5.0) gm/dl EBV Capsid Ag IgG Ab U/mL EBV Nuclear Antigen Ab U/mL Parvovirus IgG Ab Index (<0.9) 06/08/19 Range/Units 16:35 WBC (4.8-10.8) K/uL RBC (4.7-6.1) M/uL Hgb (14.0-18.0) g/dL Hct (42-52) % MCV (80-100) fL MCHC (32-36) g/dL RDW Std Deviation (36.4-46.3) fL RDW Coeff of Leonela (11.5-14.5) % Neutrophils # (Manual) (1.4-6.5) K/uL Total Absolute Neuts (1.4-6.5) K/uL Lymphocytes # (Manual) (1.2-3.4) K/uL Total Abs Lymphocytes (1.2-3.4) K/uL Chloride (98-107) mmol/L BUN (7-18) mg/dl Creatinine (0.6-1.4) mg/dl Glucose (70-99) mg/dl POC Glucose 147 H (70-99) Magnesium (1.8-2.4) mg/dl Total Bilirubin (0.2-1) mg/dl AST (15-37) U/L Alkaline Phosphatase (45-117) U/L Total Protein (6.4-8.2) gm/dl Albumin (3.4-5.0) gm/dl EBV Capsid Ag IgG Ab U/mL EBV Nuclear Antigen Ab U/mL Parvovirus IgG Ab Index (<0.9)
--- NOTE | 2019-06-08 18:05 | Hospitalist Progress Note ---
Date of Service June 08, 2019 Assessment & Plan (1) CLL (chronic lymphocytic leukemia): - Admitted originally to med surg for chemotherapeutic regimen but unable to give it due to neutropenia and persistent agranulocytosis of unknown etiology - Consulted heme/onc- Dr. Blair - Neutrophils improving - was to start venetoclax per onc recommendations, recently stopped Imbruvica due to allergic reaction with rash, now cleared up at this point. HOLDING OFF on starting chemo yet due to neutropenia as above - uric acid, phos, calcium, kidney function all stable (2) Neutropenia: ANC improved to 1.3 today. Unclear etiology, likely allopurinol Afebrile, no clear symptoms of infection Urinalysis negative, blood cultures remain no growth to date, chest x-ray negative, cdiff negative - CMV, [id number] still pending, EBV showing past infection -Checking varicella-zoster PCR given intermittent recurrent rash on right arm that is vesicular - pending -hold allopurinol and if this is truly the culprit, question if he will be able to even undergo this chemotherapy in the future as he would not be able to take allopurinol -He does have a history of rectal abscess with perforation for which he had surgery and eventually diverting colostomy 3 months ago -As per oncology recommendation, given Neupogen 480 mcg SQ x1 06/06 and 06/07, (3) Colostomy present: - Wound ostomy nurse consulted for stoma -Patient notes a couple of times where he has no stool output in his ostomy but then is relieved with massaging his abdomen-suspect perhaps some mild adhesive disease -Gave precautions to watch out for bowel obstruction - Follow with Dr. Diggs locally s/p surgery - discussed with him ostomy herniation and issue with stool output pre hospital - recommended CT abd (4) DM type 2 (diabetes mellitus, type 2): - ISS with accuchecks achs, holding glimepiride during hospitalization - A1C 7.6% Blood glucose here is fairly well controlled -Continue sliding scale insulin - HH/DM diet (5) HTN (hypertension): - Continue lisinopril 5 mg daily BPs controlled (6) Hyperlipidemia: - Cont atorvastatin 40 mg QAM, coenzyme Q10 (7) Hypothyroid: - Cont levothyroxine 25 mcg daily TSH 3.09 in 08/2018 (8) Chronic kidney disease: Chronic kidney disease stage III Creatinine remains stable around baseline of 1.5 (9) Anemia: Chronic and stable Secondary to CLL (10) Thrombocytopenia: Platelets mildly low and stable, secondary to CLL (11) Lower extremity edema: Chronic and stable, left greater than right Echocardiogram done at [facility] several months ago shows preserved EF Albumin is low here at 2.9 which could account for some of his pitting edema Likely chronic venous stasis (12) Rash: With rash that comes and goes on his hands and right forearm and antecubital fossa -Advised him to take a picture of the current rash and make an appointment as an outpatient with dermatology This rash is not pruritic or painful Question if this is some sort of recurrent herpes zoster? -varicella studies pending (13) DVT prophylaxis: - teds, lovenox 40 mg subQ CODE: Full code Dispo: if CT abd/pelvis without acute change, will discharge home in the morning Subjective Mr. Gray is looking forward to discharge. He is feeling well except that he is concerned that the herniation around his stoma is increasing. He has had reduced output but had to empty the bag twice today. ROS Constitutional: no chills, aches, sweats or fever Respiratory: no sob,cough, sputum, or wheezing Cardiac: no chest pain, palpitations, edema, orthopnea or lightheadedness GI: no abdominal pain, nausea, vomiting, diarrhea or constipation : no dysuria or hesitancy Extremities: no joint pain or weakness Skin: no rash All other systems reviewed and negative Physical Exam Physical Exam: General: no distress Eyes: normal inspection, PERLL Respiratory: chest non tender, clear to auscultation, normal breath sounds, no respiratory distress, no accessory muscle use Cardiac: regular rate and rhythm, no rub or gallop, no murmur, no edema, no jvd GI/: active bowel sounds, no abd pain or tenderness, soft, non distended Extremities: normal range of motion, normal strength, non tender Neuro/Psych: alert and oriented x 3, normal mood and affect Skin: normal color, dry Constitutional: WD/WN, vitals as above Respiratory: normal respiratory effort, lungs clear to auscultation Cardiovascular: RRR, no murmur, no edema Gastrointestinal (Abdomen): Inspection/Auscultation: abdomen normal to inspe ction and normal bowel sounds; abdomen not distended Percussion/Palpation: abdomen soft; abdomen nontender and no guarding Musculoskeletal: no cyanosis or clubbing, extremities motor strength 5/5 Neurologic: moves all extremities and awake Psychiatric: A+Ox3, euthymic affect Results & Data Vital Signs (Past 12 Hours) Vital Signs Temp Pulse Pulse Resp BP Pulse Ox 06/08/19 15:00 36.6 C 69 18 129/86 95 06/08/19 13:53 36.6 C 75 76 18 152/75 H 95 06/08/19 11:30 36.6 C 76 18 152/75 H 95 06/08/19 07:09 36.7 C 73 16 143/82 H 94 PG Care Time/CCT Total # of Minutes Spent Total Time Spent with Patient: Total time spent is greater than 50% in coordination of care (as documented) at patient's floor/unit and/or counseling patient: (1) HTN (hypertension) Hypertension type: essential hypertension Qualified Code(s): I10 - Essential (primary) hypertension
--- NOTE | 2019-06-08 18:47 | CT Scan Report ---
CT abd pelvis oral con only CT DOSE: 1320.08 mGy.cm HISTORY: Pain hernia around ostomy enlarging, decreased output TECHNIQUE: Multiaxial CT images of the abdomen and pelvis were performed following the use of oral co ntrast. A dose lowering technique was utilized adhering to the principles of ALARA. COMPARISON STUDY: 02/14/2019 FINDINGS: Minimal basilar atelectasis. Mild to moderate splenomegaly. Progressive adenopathy involvin g the abdominal and retroperitoneal regions. Diffuse adenopathy throughout the abdomen. Decreased lumen of the ostomy and bowel leading to the ostomy. Possibility of a small internal obstru cting hernia at this site is considered. There is no evidence of bowel distention. Findings of progressive adenopathy within the abdomen and pelvis. IMPRESSION: 1. Rather significant progression of adenopathy within the abdomen and pelvic regions. 2. Splenomegaly slightly progressive from the prior study. 3. Left anterior ostomy showing a loop of small bowel within the subcutaneous tissues with associated narrowing of the ostomy lumen itself. The possibility of an early obstructive pattern is not complet puneet excluded. 4. The bowel pattern at this time specifically is nonobstructive. ACT 112: Negative or not required by law. The above report was generated using voice recognition software. It may contain grammatical, syntax or spelling errors. Electronically signed by: Jorge Haney M.D. 06/08/2019 6:46 PM
[2019-06-08] MEDS: CYANOCOBALAMIN 500 MCG TABLET (VITAMIN B-12) PO SCH (20:40)
[2019-06-09] MEDS: HEPARIN 100 UNIT/ML 5ML FLUSH FLUSH PRN ×2 (05:13→11:32)
[2019-06-09] MEDS: LEVOTHYROXINE SODIUM 25 MCG TABLET PO SCH (05:35)
[2019-06-09 06:38] LABS: BUN Creatinine Ratio 15.1 (10-20); Calcium 8.4 mg/dl (8.5-10.1); Creatinine Clr Calc Pharmacy 65.1 ml/min; Est GFR (African American) 58.4; Est GFR (Non-African American) 50.4; Potassium 3.4 mmol/L (3.5-5.1)
[2019-06-09 06:59] LABS: Hematocrit (blood only) 24.5 % (42-52); Hemoglobin 8.2 g/dL (14.0-18.0); Mean Corpuscular Hemoglobin 33.2 pg (25-34); Mean Corpuscular Hgb Conc 33.5 g/dL (32-36); Mean Corpuscular Volume 99.2 fL (80-100); Mean Platelet Volume 9.7 fL (7.4-10.4); Platelet Count 130 K/uL (130-400); RDW Coefficient of Variation 17.6 % (11.5-14.5); Red Blood Count 2.47 M/uL (4.7-6.1); White Blood Count 67.42 K/uL (4.8-10.8)
[2019-06-09 07:27] LABS: Ovalocytes 1+; Smudge Cells Present
[2019-06-09 07:29] LABS: ALC (manual) 66.88 K/uL (1.2-3.4); ANC (manual) 0.54 K/uL (1.4-6.5); Lymphocytes # (manual) 66.88 K/uL (1.2-3.4); Lymphocytes % (manual) 99.2 %; Neutrophils # (manual) 0.54 K/uL (1.4-6.5); Neutrophils % (manual) 0.8 %
[2019-06-09] MEDS: MULTIVITAMIN TAB PO SCH (08:26)
[2019-06-09] MEDS: ENOXAPARIN INJ 40 MG/0.4 ML SYR SQ SCH (08:26)
[2019-06-09] MEDS: ATORVASTATIN 40 MG TAB PO SCH (08:26)
[2019-06-09] MEDS: lisinopriL 5 MG TAB PO SCH (08:26)
[2019-06-09] MEDS ORDERED: POTASSIUM CHLORIDE 20 MEQ TABCR PO STA (08:34)
[2019-06-09 09:45] LABS: Albumin Level 3.2 gm/dl (3.4-5.0); Bilirubin Direct 0.1 mg/dl (0-0.2); Bilirubin,Total 1.1 mg/dl (0.2-1); Total Protein 5.8 gm/dl (6.4-8.2)
[2019-06-09] MEDS ORDERED: FILGRASTIM 480 MCG/1.6 ML VIAL SC ONE (10:00)
[2019-06-09] MEDS: INSULIN ASPART 100 UNITS/ML 3 ML PEN SC SCH (10:35)
[2019-06-11 10:19] LABS: VZ DNA Source WHOLE BLOOD
== END 2019-06-09 11:57 | disposition home or self-care (01) | DRG 809 ==
LOC: 4W → SUATTDRO 06-03 11:48

== ENCOUNTER 2019-07-04 17:24 | Inpatient (IN) ==
[2019-07-04] MEDS ORDERED: SODIUM CHLORIDE 0.9% 500 ML IV ONE (17:59)
--- NOTE | 2019-07-04 18:07 | Emergency Department Note ---
ED Provider Note INFORMANT: Patient ED PROVIDER: Erika Harden MD CHIEF COMPLAINT: Fever, neutropenia IMPRESSION: Febrile Neutropenia MEDICAL DECISION MAKING: Patient presented with fever and generalized illness. He was severely neutropenic with an absolute neutrophil count of 0.0 two days ago. Blood cultures were obtained. Influenza testing performed. He had a negative chest x-ray. He was empirically treated with IV cefepime while awaiting his blood work. His white blood cell count is significantly elevated consistent with his CLL. The patient was found to be neutropenic although his neutrophil count had improved. He had mild renal insufficiency noted on chemistry panel. Despite Tylenol he was still febrile. He was given a small dose of ibuprofen to help control his high fever. Given his situation I discussed staying in the hospital for further care and he was in agreement. I did consult with internal medicine and the patient was admitted for further treatment. Triage Nursing notes reviewed and agree them. Prior medical records reviewed : hx of neutropenia and CLL Vital Signs: reviewed and remarkable for fever and tachycardia Differential diagnosis: Viral syndrome, otitis, pharyngitis, pneumonia, influenza, meningitis, urinary tract infection, sepsis, bacteremia, as well as other pathologies. ER treatment provided: Saline hydration Tylenol Cefepime 2gm Diagnostics interpreted by me: ECG: Rate: 92 Rhythm: Normal sinus [place]: Normal QRS: Normal ST segements: No ST elevation or depression. Other: No PACs or PVCs Cardiac Monitoring: Cardiac monitoring was performed and it revealed a normal sinus rhythm at 98 bpm. No ectopy. Laboratory studies:[See below] the patient has a significant leukocytosis consistent with his CLL. He has mild anemia. Mild renal insufficiency at 1.69. LFTs unremarkable. Flu testing negative. Imaging studies: Chest x-ray was performed and negative for infiltrate or other acute pathology. Consultation(s): Consultation was made with Dr. Gomez of internal medicine. The patient was evaluated in the ER and admitted for further management. HPI: 63 y/o male patient arrives for evaluation of fever. Pt has a hx of CLL. Was neutropenic on labs 2 days ago, ABS neutrophil count 0.00. Temp spiked to 101 4 hours ago. Patient took ibuprofen and sudaphed. He has a cough. He notes his glands are chronically swollen due to his CLL. He has contact with a child who had RSV. Pt denies LOC, headache, diaphoresis, visual changes, neck pain, chest pain, breathing difficulties, nausea, vomiting, abdominal pain, back pain, melena, hematochezia, urinary symptoms, numbness, weakness, rash, or other complaints. ROS: See above HPI for pertinent positives & negatives. A total of 10 systems reviewed and were otherwise negative. PAST MEDICAL HISTORY: CLL. DM, ANJUM PAST SURGICAL HISTORY: [facility] FAMILY HISTORY: see below SOCIAL HISTORY: No etoh or smoking PHYSICAL EXAMINATION: GENERAL: Awake, alert, mildy ill-appearing, in no distress HENT: Normocephalic, atraumatic. Oropharynx unremarkable. EYES: Normal conjunctiva. Sclera non-icteric. NECK: Inspection normal. Non-tender. Supple. No nuchal rigidity. FROM. No masses. RESPIRATORY: Clear to auscultation. No wheezes. No rales. Normal respiratory effort. CARDIAC: Tachycardic rate. Normal rhythm. No murmurs. No rubs. Extremities warm and well perfused. Pulses equal. No JVD. GI: Soft, non-distended. No tenderness to palpation. No rebound or guarding. No masses. RECTAL: Deferred. MUSCULOSKELETAL: Atraumatic. Chest examination reveals no tenderness. The back is symmetrical on inspection without obvious abnormality. There is no CVA tenderness to palpation. No joint edema. LOWER EXTREMITIES: Calves are equal size bilaterally and non-tender. No edema. No discoloration. NEURO: Normal sensorium. No sensory or motor deficits noted. SKIN: No rash or jaundice noted. ED COURSE: Procedures: [none] Blood pressure: [Normal. No Referral necessary] [Critical Care:] [None] Carlo Harden MD Impression & Plan Neutropenic fever, Leukemia Past Med/Surg History Medical History (Updated 07/05/19 @ 00:26 by Carlo Harden MD) Cataract, left eye Chronic kidney disease (Acute) STAGE 2 CLL (chronic lymphocytic leukemia) Diabetes mellitus, type 2 History of anesthesia reaction WAS AWAKE FOR APORT PLACEMENT, NEEDS MORE ANESTHESIA? Hyperlipidemia Hypertension Hypothyroidism Lower extremity edema Rash Stroke 2015--SPEECH IS SLIGHTLY SLOWER Tinnitus of both ears Surgical History H/O right cataract extraction History of tooth extraction WISDOM TEETH History of vascular access device L CHEST Social History Preferred Language: Beninese Communication Ability: Effective Electrician Supervisor Required: No Beliefs That Will Affect Care: None Current Living Situation: Alone Current Living Situation Comment: lives with and two children Other Information That Helps Us Care for You: No Feels Safe at Home: Yes Safety Concerns: Feels Safe At This Time Smoking Status: Never smoker Second Hand Exposure: No ; Hx Alcohol Use: No Hx Substance Use: No Results & Data Vital Signs Vital Signs - 24 hr 07/04/19 17:31 07/04/19 18:24 07/04/19 18:49 Temperature 37.6 C H Temperature Source Oral Pulse Rate 106 H 94 H 91 H Pulse Rate from SpO2 Sensor 93 H 91 H Respiratory Rate 20 26 H 23 Respiratory Effort / Characteristics Non-Labored Respiratory Depth Normal Blood Pressure 145/72 H 134/65 139/63 Blood Pressure Mean 96 102 84 Pulse Oximetry 97 98 95 Oxygen Delivery Method Room Air Room Air Sepsis Recent Fever Within 48 Hours No Sepsis Action Taken by Nursing No Action Required 07/04/19 19:23 Temperature 39.6 C H Temperature Source Oral Pulse Rate Pulse Rate from SpO2 Sensor Respiratory Rate Respiratory Effort / Characteristics Respiratory Depth Blood Pressure Blood Pressure Mean Pulse Oximetry Oxygen Delivery Method Sepsis Recent Fever Within 48 Hours Sepsis Action Taken by Nursing Laboratory Data Result diagrams: 07/04/19 18:20 07/04/19 18:20 Lab Results 07/04/19 07/04/19 07/04/19 Range/Units 18:20 18:20 18:20 WBC 67.35 H* (4.8-10.8) K/uL RBC 2.42 L (4.7-6.1) M/uL Hgb 8.3 L (14.0-18.0) g/dL Hct 25.4 L (42-52) % MCV 105.0 H (80-100) fL MCH 34.3 H (25-34) pg MCHC 32.7 (32-36) g/dL RDW Std Deviation 76.1 H (36.4-46.3) fL RDW Coeff of Leonela 19.9 H (11.5-14.5) % Plt Count 155 (130-400) K/uL MPV 9.7 (7.4-10.4) fL Neutrophils % (Manual) 1.7 % Lymphocytes % (Manual) 97.4 % Monocytes % (Manual) 0.9 % Neutrophils # (Manual) 1.14 L (1.4-6.5) K/uL Total Absolute Neuts 1.14 L (1.4-6.5) K/uL Lymphocytes # (Manual) 65.60 H (1.2-3.4) K/uL Total Abs Lymphocytes 65.60 H (1.2-3.4) K/uL Monocytes # (Manual) 0.61 H (0.11-0.59) K/uL Smudge Cells Present Anisocytosis Present PT 11.8 (9.0-12.0) Seconds INR 1.2 H (0.9-1.1) APTT 28.2 (21.0-31.0) Seconds PTT Ratio 1.0 Sodium 137 (136-145) mmol/L Potassium 4.7 (3.5-5.1) mmol/L Chloride 106 (98-107) mmol/L Carbon Dioxide 23 (21-32) mmol/L Anion Gap 8.0 (3-11) BUN 38 H (7-18) mg/dl Creatinine 1.69 H (0.6-1.4) mg/dl Est Cr Clr Drug Dosing 56.7 ml/min Est GFR ( Amer) 49.4 Est GFR (Non-Af Amer) 42.6 BUN/Creatinine Ratio 22.3 H (10-20) Glucose 199 H (70-99) mg/dl Lactate (0.4-2.0) mmol/L Calcium 8.5 (8.5-10.1) mg/dl Magnesium 1.6 L (1.8-2.4) mg/dl Total Bilirubin 0.9 (0.2-1) mg/dl AST 12 L (15-37) U/L ALT 17 (12-78) U/L Alkaline Phosphatase 130 H (45-117) U/L Total Protein 6.5 (6.4-8.2) gm/dl Albumin 3.4 (3.4-5.0) gm/dl Globulin 3.1 (2.5-4.0) gm/dl Albumin/Globulin Ratio 1.1 (0.9-2) Stl C. diff Tox B Gene (Neg) Influenza Type A (PCR) (Neg) Influenza Type B (PCR) (Neg) Blood Type Antibody Screen 07/04/19 07/04/19 07/04/19 Range/Units 18:20 18:20 18:32 WBC (4.8-10.8) K/uL RBC (4.7-6.1) M/uL Hgb (14.0-18.0) g/dL Hct (42-52) % MCV (80-100) fL MCH (25-34) pg MCHC (32-36) g/dL RDW Std Deviation (36.4-46.3) fL RDW Coeff of Leonela (11.5-14.5) % Plt Count (130-400) K/uL MPV (7.4-10.4) fL Neutrophils % (Manual) % Lymphocytes % (Manual) % Monocytes % (Manual) % Neutrophils # (Manual) (1.4-6.5) K/uL Total Absolute Neuts (1.4-6.5) K/uL Lymphocytes # (Manual) (1.2-3.4) K/uL Total Abs Lymphocytes (1.2-3.4) K/uL Monocytes # (Manual) (0.11-0.59) K/uL Smudge Cells Anisocytosis PT (9.0-12.0) Seconds INR (0.9-1.1) APTT (21.0-31.0) Seconds PTT Ratio Sodium (136-145) mmol/L Potassium (3.5-5.1) mmol/L Chloride (98-107) mmol/L Carbon Dioxide (21-32) mmol/L Anion Gap (3-11) BUN (7-18) mg/dl Creatinine (0.6-1.4) mg/dl Est Cr Clr Drug Dosing ml/min Est GFR ( Amer) Est GFR (Non-Af Amer) BUN/Creatinine Ratio (10-20) Glucose (70-99) mg/dl Lactate 1.0 (0.4-2.0) mmol/L Calcium (8.5-10.1) mg/dl Magnesium (1.8-2.4) mg/dl Total Bilirubin (0.2-1) mg/dl AST (15-37) U/L ALT (12-78) U/L Alkaline Phosphatase (45-117) U/L Total Protein (6.4-8.2) gm/dl Albumin (3.4-5.0) gm/dl Globulin (2.5-4.0) gm/dl Albumin/Globulin Ratio (0.9-2) Stl C. diff Tox B Gene Negative Cdiff Gene (Neg) Influenza Type A (PCR) (Neg) Influenza Type B (PCR) (Neg) Blood Type O Negative Antibody Screen NEGATIVE 07/04/19 Range/Units 18:32 WBC (4.8-10.8) K/uL RBC (4.7-6.1) M/uL Hgb (14.0-18.0) g/dL Hct (42-52) % MCV (80-100) fL MCH (25-34) pg MCHC (32-36) g/dL RDW Std Deviation (36.4-46.3) fL RDW Coeff of Leonela (11.5-14.5) % Plt Count (130-400) K/uL MPV (7.4-10.4) fL Neutrophils % (Manual) % Lymphocytes % (Manual) % Monocytes % (Manual) % Neutrophils # (Manual) (1.4-6.5) K/uL Total Absolute Neuts (1.4-6.5) K/uL Lymphocytes # (Manual) (1.2-3.4) K/uL Total Abs Lymphocytes (1.2-3.4) K/uL Monocytes # (Manual) (0.11-0.59) K/uL Smudge Cells Anisocytosis PT (9.0-12.0) Seconds INR (0.9-1.1) APTT (21.0-31.0) Seconds PTT Ratio Sodium (136-145) mmol/L Potassium (3.5-5.1) mmol/L Chloride (98-107) mmol/L Carbon Dioxide (21-32) mmol/L Anion Gap (3-11) BUN (7-18) mg/dl Creatinine (0.6-1.4) mg/dl Est Cr Clr Drug Dosing ml/min Est GFR ( Amer) Est GFR (Non-Af Amer) BUN/Creatinine Ratio (10-20) Glucose (70-99) mg/dl Lactate (0.4-2.0) mmol/L Calcium (8.5-10.1) mg/dl Magnesium (1.8-2.4) mg/dl Total Bilirubin (0.2-1) mg/dl AST (15-37) U/L ALT (12-78) U/L Alkaline Phosphatase (45-117) U/L Total Protein (6.4-8.2) gm/dl Albumin (3.4-5.0) gm/dl Globulin (2.5-4.0) gm/dl Albumin/Globulin Ratio (0.9-2) Stl C. diff Tox B Gene (Neg) Influenza Type A (PCR) Neg for Influ A (Neg) Influenza Type B (PCR) Neg for Influ B (Neg) Blood Type Antibody Screen Administered Medications Cyanocobalamin (Vitamin B-12) 1,000 mcg PO PM BELLA Stop: 08/03/19 21:51 Last Admin: 07/04/19 22:49 Dose: 1,000 mcg Documented by: [id number] Enoxaparin Sodium (Lovenox) 30 mg SQ Q24H BELLA Stop: 08/03/19 21:59 Last Admin: 07/04/19 22:49 Dose: Not Given Documented by: [id number] Insulin Aspart (Novolog Flexpen) 0 units SC ACHS BELLA Stop: 08/03/19 21:51 Last Admin: 07/04/19 22:56 Dose: Not Given Documented by: [id number] Cosigned by: [id number] Discontinued Medications Acetaminophen (Tylenol) 1,000 mg PO NOW STA Stop: 07/04/19 18:11 Last Admin: 07/04/19 18:40 Dose: 1,000 mg Documented by: [id number] Sodium Chloride (Nss) 500 mls @ 999 mls/hr IV .Q31M ONE Stop: 07/04/19 18:29 Last Infusion: 07/04/19 19:19 Dose: 0 mls/hr Documented by: [id number] Admin: 07/04/19 18:41 Dose: 999 mls/hr Documented by: [id number] Cefepime HCl (Maxipime) 2,000 mg in 20 mls @ 5 mls/min IV NOW STA; Protocol Stop: 07/04/19 18:13 Last Admin: 07/04/19 18:48 Dose: 5 mls/min Documented by: [id number] Ibuprofen (Advil) 400 mg PO NOW STA Stop: 07/04/19 19:56 Last Admin: 07/04/19 20:21 Dose: 400 mg Documented by: [id number] Discharge Plan Visit Data *Final* Discharge Date/Time: 07/04/19 21:22 Chief Complaint: Fever Stated Complaint: CLL, FEVER ED Provider: Carlo Harden Discharge Problem: Neutropenic fever, Leukemia Patient Disposition: Admitted As Inpatient Discharge Instructions Interventions: ED Discharge Assessment Last Done: 07/04/19 21:22
[2019-07-04] MEDS ORDERED: ACETAMINOPHEN 500 MG TAB PO STA (18:10)
[2019-07-04] MEDS ORDERED: CEFEPIME 2,000 MG/20 ML VIAL IV STA (18:10)
[2019-07-04 18:55] LABS: Albumin Level 3.4 gm/dl (3.4-5.0); BUN Creatinine Ratio 22.3 (10-20); Calcium 8.5 mg/dl (8.5-10.1); Creatinine Clr Calc Pharmacy 56.7 ml/min; Est GFR (African American) 49.4; Est GFR (Non-African American) 42.6; Magnesium 1.6 mg/dl (1.8-2.4); Potassium 4.7 mmol/L (3.5-5.1)
--- NOTE | 2019-07-04 18:55 | XRay Report ---
XR chest 1V portable HISTORY: SEPSIS COMPARISON: Chest 06/04/2019. FINDINGS: Stable calcified granuloma within the right lung base. Otherwise, lungs are clear. No pleur al effusions. No pneumothorax. The heart is normal in size. Left subclavian Port-A-Cath terminates at the distal SVC. IMPRESSION: No significant change compared to the prior study. No acute process. ACT 112: Negative or not required by law. Electronically signed by: Eron Abdalla M.D. 07/04/2019 6:54 PM
[2019-07-04 18:58] LABS: Albumin Globulin Ratio 1.1 (0.9-2); Bilirubin,Total 0.9 mg/dl (0.2-1); Globulin 3.1 gm/dl (2.5-4.0); Total Protein 6.5 gm/dl (6.4-8.2)
[2019-07-04 19:05] LABS: Hematocrit (blood only) 25.4 % (42-52); Hemoglobin 8.3 g/dL (14.0-18.0); Mean Corpuscular Hemoglobin 34.3 pg (25-34); Mean Corpuscular Hgb Conc 32.7 g/dL (32-36); Mean Platelet Volume 9.7 fL (7.4-10.4); Platelet Count 155 K/uL (130-400); RDW Coefficient of Variation 19.9 % (11.5-14.5); RDW Standard Deviation 76.1 fL (36.4-46.3); Red Blood Count 2.42 M/uL (4.7-6.1); White Blood Count 67.35 K/uL (4.8-10.8)
[2019-07-04 19:06] LABS: INR 1.2 (0.9-1.1); Partial Thromboplastin Time 28.2 Seconds (21.0-31.0); Prothrombin Time 11.8 Seconds (9.0-12.0)
[2019-07-04 19:20] LABS: Influenza A virus by PCR Neg for Influ A (Neg); Influenza B virus by PCR Neg for Influ B (Neg)
[2019-07-04 19:49] LABS: ANC (manual) 1.14 K/uL (1.4-6.5); Anisocytosis Present; Lymphocytes % (manual) 97.4 %; Monocytes # (manual) 0.61 K/uL (0.11-0.59); Monocytes % (manual) 0.9 %; Neutrophils # (manual) 1.14 K/uL (1.4-6.5); Neutrophils % (manual) 1.7 %; Smudge Cells Present
[2019-07-04] MEDS ORDERED: IBUPROFEN 200 MG TAB PO STA (19:55)
--- NOTE | 2019-07-04 21:23 | History & Physical Report ---
Date of Service July 04, 2019 Assessment & Plan (1) Neutropenic fever: - Neutropenic fever in setting of CLL - Consult Oncologist, follows with Dr. Blair - Cefepime 2gm IV q8h - Follow cultures - Tylenol PRN for fever - Trend CBC - Continue w/home probiotic QID Code: Full Code DVT ppx: Lovenox 30mg SQ q24h FENGI: Diet DM2 Dispo: Full admit, PCU/Tele (2) CLL (chronic lymphocytic leukemia): as above (3) Colostomy present: - Wound ostomy nurse consulted for stoma - Follows with Dr. Diggs locally s/p surgery (4) DM type 2 (diabetes mellitus, type 2): Hold home Glimepiride Novolog SS ordered (5) HTN (hypertension): Okay to continue with home lisinopril, no deviation of creatinine from baseline currently hemodynamically stable (6) Hypothyroid: continue with home synthroid (7) Hyperlipidemia: c/w Atorvastatin 40mg PO qAM c/w Coenzyme Q10 (8) DVT prophylaxis: Lovenox 30mg q24h renal dosing History of Present Illness Chief Complaint: Neutropenic Fever Primary Care Provider: Vinnie Crawford MD Mr. Alphonso Gray is a 63 y/o male with past medical hx of CLL, splenomegaly, DM2, HLD, HTN, CVA, hypothryoid, colostomy, agranulocytosis who presented to [facility] with Fevers. He notes onset of fever and chills today around noon. He had a Tmax at home of 100.9, treated with Tylenol at home. He was instructed to come here to [facility] per Oncologist. He denies any other new symptoms, no chest pain, no shortness of breath, no difficulty with urination or change in colostomy outflow. He was started on Cefepime in the ED, given IVF and Tylenol. Allergies Allergy/AdvReac Type Severity Reaction Status Date / Time ibrutinib [From Imbruvica] Allergy Intermediate LOOKED Verified 07/04/19 18:29 LIKE A LEOPARD SPOTTED ALL OVER allopurinol AdvReac Severe Neutropenia Verified 07/04/19 18:29 - severe Home Medications Home Medications Medication Instructions Recorded Confirmed Type atorvastatin 40 mg PO QAM 02/17/18 07/04/19 History coenzyme Q10 [Co Q-10] 100 mg PO QPM 02/17/18 07/04/19 History cyanocobalamin (vitamin B-12) 1,000 mcg PO PM 02/17/18 07/04/19 History [id number] 1 cap PO QAM 02/17/18 07/04/19 History [krill oil] multivitamin 1 tab PO QAM 02/17/18 07/04/19 History glimepiride 2 mg tablet 4 mg PO QAM #60 tab 02/15/19 07/04/19 Rx lisinopril 5 mg tablet 5 mg PO QAM #90 tab 03/15/19 07/04/19 Rx levothyroxine 25 mcg PO 3XWK 06/03/19 07/04/19 History levothyroxine 50 mcg PO 4XWK 06/03/19 07/04/19 History Lactobacillus acidophilus 0 cell PO QAM 07/04/19 07/04/19 History [Probiotic] Past Med/Surg History Medical History (Updated 07/05/19 @ 00:26 by Carlo Harden MD) Cataract, left eye Chronic kidney disease (Acute) STAGE 2 CLL (chronic lymphocytic leukemia) Diabetes mellitus, type 2 History of anesthesia reaction WAS AWAKE FOR APORT PLACEMENT, NEEDS MORE ANESTHESIA? 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 Beliefs That Will Affect Care: None Current Living Situation: Alone Current Living Situation Comment: lives with and two children Other Information That Helps Us Care for You: No Feels Safe at Home: Yes Safety Concerns: Feels Safe At This Time Smoking Status: Never smoker Second Hand Exposure: No ; Hx Alcohol Use: No Hx Substance Use: No Review of Systems Review of Systems: All systems reviewed & are unremarkable except as noted in HPI & below Constitutional: as per Subjective / HPI Eyes: no diplopia and no worsening vision Ear, Nose, Mouth, Throat: + sore throat (chronic); no bleeding gums Respiratory: + cough (chronic); no dyspnea Cardiovascular: no chest pain and no edema Gastrointestinal: no abdominal pain, no nausea and no vomiting Genitourinary: no dysuria and no difficulty urinating Neurologic: no syncope and no confusion Physical Exam Constitutional: + ill appearing, cooperative and comfortable; no acute distress Eyes: PERRL, conjunctivae normal, anicteric sclerae ENMT: external ear and nose normal, oropharynx normal Neck: normal visual inspection and trachea midline Respiratory: normal respiratory effort, lungs clear to auscultation Cardiovascular: RRR, no murmur, no edema Gastrointestinal (Abdomen): Percussion/Palpation: abdomen soft and + splenomegaly; abdomen nontender, no guarding and abdomen not rigid colostomy w/bag left abdomen Musculoskeletal: Head/Neck/Chest: normocephalic and head atraumatic Skin: no rashes, warm and dry Neurologic: moves all extremities and awake Psychiatric: A+Ox3, euthymic affect Results & Data Vital Signs (Past 12 Hours) Vital Signs Temp Pulse Resp BP Pulse Ox 07/04/19 21:12 38.4 C H 07/04/19 19:23 39.6 C H 07/04/19 18:49 91 H 23 139/63 95 07/04/19 18:24 94 H 26 H 134/65 98 07/04/19 17:31 37.6 C H 106 H 20 145/72 H 97 Code Status & VTE Plan Code Status Full Code VTE Prophylaxis Plan VTE Prophylaxis will be ordered: Yes Supervising Physician Co-Signing Physician Notes Patient was seen and examined by me personally. I reviewed the chart, the orders and discussed the case in detail with Dr. Isaiah Sweeney DO . I read this H&P and agree with its contents to entirety. Resident Activity Tracking Resident Involvement: Resident Care Provided Care Provided: Adult Hospital Medicine (1) HTN (hypertension) Hypertension type: essential hypertension Qualified Code(s): I10 - Essential (primary) hypertension
[2019-07-04 21:49] LABS: Appearance Urine Cloudy (Clear); Bacteria Urine Automated Negative (Negative); Bilirubin Urine Negative (Negative); Blood Urine Negative (Negative); Cast Urine Automated 0 /lpf (0-5); Color Urine Yellow; Epithelial Cell Urine Auto 0-5 /lpf (0-5); Glucose Urine UA Negative (Negative); Ketones Urine Negative (Negative); Leukocyte Esterase Urine Negative (Negative); Nitrite Urine Negative (Negative); Protein Urine Negative (Negative); RBC Urine Automated 0-4 /hpf (0-4); Specific Gravity Urine 1.016 (1.000-1.030); Urobilinogen Urine Negative (Negative); WBC Urine Automated 0 /hpf (0-5); pH Urine 5.5 (4.5-7.5)
[2019-07-04] MEDS ORDERED: ONDANSETRON INJ 2 MG/ML 2 ML VIAL IV PRN (21:52)
[2019-07-04] MEDS ORDERED: DEXTROSE 50% 50 ML SYRINGE IV PRN (21:52)
[2019-07-04] MEDS ORDERED: ALUMINUM/MAGNESIUM SUSP 30 ML UDC PO PRN (21:52)
[2019-07-04] MEDS ORDERED: CEFEPIME CONSULT ACTIVE PRN (21:52)
[2019-07-04] MEDS ORDERED: NON-FORMULARY MEDICATION (Coenzyme Q10 [Co Q-10] 100 MG) PO SCH (21:52)
[2019-07-04] MEDS ORDERED: GLUCOSE 10 TABS/TUBE PO PRN (21:52)
[2019-07-04] MEDS ORDERED: CARBOHYDRATES FOR HYPOGLYCEMIA PO PRN (21:52)
[2019-07-04] MEDS ORDERED: NITROGLYCERIN SL 0.4 MG/TAB TAB SL PRN (21:52)
[2019-07-04] MEDS ORDERED: MAGNESIUM HYDROXIDE SUSP 30 ML UDC PO PRN (21:52)
[2019-07-04] MEDS ORDERED: GLUCAGON FOR INJ 1 MG VIAL SQ PRN (21:52)
[2019-07-04] MEDS ORDERED: GLUCOSE 40% GEL 15 GM TUBE PO PRN (21:52)
[2019-07-04] MEDS ORDERED: POLYETHYLENE (MIRALAX) 17 GM PACK PO PRN (21:52)
[2019-07-04] MEDS: ENOXAPARIN INJ 30 MG/0.3 ML SYR SQ SCH (22:49)
[2019-07-04] MEDS: CYANOCOBALAMIN 500 MCG TABLET (VITAMIN B-12) PO SCH (22:49)
[2019-07-04] MEDS: INSULIN ASPART 100 UNITS/ML 3 ML PEN SC SCH (22:56)
[2019-07-05] MEDS: ACETAMINOPHEN 325 MG TAB PO PRN ×4 (03:36→20:48)
[2019-07-05] MEDS: CEFEPIME 2,000 MG in SYRINGE 7.5 ML IV SCH ×2 (05:18→17:02)
[2019-07-05] MEDS: LEVOTHYROXINE SODIUM 25 MCG TABLET PO SCH (05:19)
[2019-07-05 05:50] LABS: Hematocrit (blood only) 23.1 % (42-52); Hemoglobin 7.5 g/dL (14.0-18.0); Mean Corpuscular Hemoglobin 33.6 pg (25-34); Mean Corpuscular Hgb Conc 32.5 g/dL (32-36); Mean Corpuscular Volume 103.6 fL (80-100); Mean Platelet Volume 9.3 fL (7.4-10.4); Platelet Count 125 K/uL (130-400); RDW Standard Deviation 74.7 fL (36.4-46.3); Red Blood Count 2.23 M/uL (4.7-6.1); White Blood Count 50.88 K/uL (4.8-10.8)
[2019-07-05 06:21] LABS: Calcium 8.1 mg/dl (8.5-10.1); Creatinine Clr Calc Pharmacy 53.2 ml/min; Est GFR (African American) 45.7; Est GFR (Non-African American) 39.5; Magnesium 1.6 mg/dl (1.8-2.4); Potassium 4.4 mmol/L (3.5-5.1)
[2019-07-05 06:24] LABS: Bilirubin,Total 0.9 mg/dl (0.2-1); Globulin 2.9 gm/dl (2.5-4.0); Phosphorus 3.6 mg/dl (2.5-4.9); Total Protein 5.9 gm/dl (6.4-8.2)
--- NOTE | 2019-07-05 06:31 | Billing Data ---
Date of Service July 04, 2019 Coding Level of Care Code 18151 Initial Inpt Care Lvl 3
[2019-07-05 07:14] LABS: Anisocytosis Present; Smudge Cells Present
[2019-07-05 07:17] LABS: ALC (manual) 50.47 K/uL (1.2-3.4); ANC (manual) 0.41 K/uL (1.4-6.5); Lymphocytes # (manual) 50.47 K/uL (1.2-3.4); Lymphocytes % (manual) 99.2 %; Neutrophils # (manual) 0.41 K/uL (1.4-6.5); Neutrophils % (manual) 0.8 %
[2019-07-05] MEDS: INSULIN ASPART 100 UNITS/ML 3 ML PEN SC SCH ×4 (08:24→20:52)
[2019-07-05] MEDS: MULTIVITAMIN TAB PO SCH (08:25)
[2019-07-05] MEDS: OMEGA-3 (PURIFIED FISH OIL) 1 GM CAP PO SCH (08:25)
[2019-07-05] MEDS: ATORVASTATIN 40 MG TAB PO SCH (08:25)
[2019-07-05] MEDS: LACTOBACILLUS ACIDOPHILUS (FLORANEX) TAB PO SCH ×4 (08:25→20:49)
[2019-07-05] MEDS ORDERED: lisinopriL 5 MG TAB PO SCH (09:00)
[2019-07-05] MEDS ORDERED: VANCOMYCIN CONSULT ACTIVE PRN (09:44)
--- NOTE | 2019-07-05 09:47 | Hospitalist Progress Note ---
Date of Service July 05, 2019 Assessment & Plan (1) Neutropenic fever: still with fever this morning and ANC is 0.4 defer timing of Neupogen to Oncology as they are planning on BM biopsy will continue Cefepime, add Vancomycin due to blood cultures with gram positive cocci repeat CBC daily, look for ANC of > 1.5 and no fever for 24 hours no clear source of infection as CXR clear, UA negative, no abdominal symptoms (2) CLL (chronic lymphocytic leukemia): currently not on treatment due to series of adverse reactions and then neutropenia plan for BM biopsy in 1-2 days to help determine what is going on, is there an acute component? (3) Colostomy present: due to rectal abscess 6 months ago colostomy working well, eating and drinking well (4) DM type 2 (diabetes mellitus, type 2): DM diet Novolog SS monitor for hypoglycemia (5) HTN (hypertension): BP is low normal will hold further lisinopril (6) Hypothyroid: continue Synthroid (7) Hyperlipidemia: continue statin (8) DVT prophylaxis: Subjective patient feeling okay this morning, had a fever when he woke up other than fever and feeling weak, he has no specific symptoms he always has a dry cough from post nasal drip issue, no purulent sputum at this time no dyspnea, no abdominal pain, no dysuria he admits to some lymphadenopathy in left axilla reviewed labs, Hb is 7.5, ANC is low at 0.[address] Blair, he will see him today and plan for BM biopsy in 1- 2 days will defer Neupogen to him since he is planning the biopsy Review of Systems Review of Systems: All systems reviewed & are unremarkable except as noted in HPI & below Constitutional: + fever, + chills, + sweats, + fatigue and + weakness Respiratory: + cough; no dyspnea and no sputum production Cardiovascular: no chest pain and no edema Gastrointestinal: no abdominal pain, no nausea, no vomiting, no constipation and no diarrhea/loose stools Physical Exam Constitutional: WD/WN, vitals as above Eyes: PERRL, conjunctivae normal, anicteric sclerae ENMT: external ear and nose normal, oropharynx normal Neck: trachea midline, no thyromegaly Respiratory: normal respiratory effort, lungs clear to auscultation Cardiovascular: RRR, no murmur, no edema Gastrointestinal (Abdomen): normal bowel sounds, soft, nontender, no hepatosplenomegaly Musculoskeletal: no cyanosis or clubbing, extremities motor strength 5/5 Skin: no rashes, warm and dry Neurologic: patellar DTR's 2+ bilat, sensation intact and PERRL, EOMI, accommodation nl, no face palsy, no dysarthria Psychiatric: A+Ox3, euthymic affect Lymphatic: + axillary lymphadenopathy Results & Data ([facility]) Vital Signs (Past 12 Hours) Vital Signs Temp Pulse Pulse Resp BP Pulse Ox 07/05/19 07:12 38.4 C H 84 20 104/53 L 94 07/05/19 03:28 37.6 C H 96 H 18 144/60 H 97 07/05/19 00:12 85 07/04/19 23:56 37.4 C 83 17 97/47 L 95 07/04/19 22:40 88 Laboratory Results Laboratory Results - last 24 hr 07/04/19 07/04/19 07/04/19 18:20 18:20 18:20 WBC 67.35 H* RBC 2.42 L Hgb 8.3 L Hct 25.4 L MCV 105.0 H MCH 34.3 H MCHC 32.7 RDW Std Deviation 76.1 H RDW Coeff of Leonela 19.9 H Plt Count 155 MPV 9.7 Neutrophils % (Manual) 1.7 Lymphocytes % (Manual) 97.4 Monocytes % (Manual) 0.9 Neutrophils # (Manual) 1.14 L Total Absolute Neuts 1.14 L Lymphocytes # (Manual) 65.60 H Total Abs Lymphocytes 65.60 H Monocytes # (Manual) 0.61 H Smudge Cells Present Anisocytosis Present PT 11.8 INR 1.2 H APTT 28.2 PTT Ratio 1.0 Sodium 137 Potassium 4.7 Chloride 106 Carbon Dioxide 23 Anion Gap 8.0 BUN 38 H Creatinine 1.69 H Est Cr Clr Drug Dosing 56.7 Est GFR ( Amer) 49.4 Est GFR (Non-Af Amer) 42.6 BUN/Creatinine Ratio 22.3 H Glucose 199 H POC Glucose Lactate Calcium 8.5 Phosphorus Magnesium 1.6 L Total Bilirubin 0.9 AST 12 L ALT 17 Alkaline Phosphatase 130 H Total Protein 6.5 Albumin 3.4 Globulin 3.1 Albumin/Globulin Ratio 1.1 Urine Color Urine Appearance Urine pH Ur Specific Williamson Urine Protein Urine Glucose (UA) Urine Ketones Urine Blood Urine Nitrite Urine Bilirubin Urine Urobilinogen Ur Leukocyte Esterase Urine WBC (Auto) Urine RBC (Auto) U Hyaline Cast (Auto) U Epithel Cells (Auto) Urine Bacteria (Auto) Stl C. diff Tox B Gene Influenza Type A (PCR) Influenza Type B (PCR) Blood Type Antibody Screen 07/04/19 07/04/19 07/04/19 18:20 18:20 18:32 WBC RBC Hgb Hct MCV MCH MCHC RDW Std Deviation RDW Coeff of Leonela Plt Count MPV Neutrophils % (Manual) Lymphocytes % (Manual) Monocytes % (Manual) Neutrophils # (Manual) Total Absolute Neuts Lymphocytes # (Manual) Total Abs Lymphocytes Monocytes # (Manual) Smudge Cells Anisocytosis PT INR APTT PTT Ratio Sodium Potassium Chloride Carbon Dioxide Anion Gap BUN Creatinine Est Cr Clr Drug Dosing Est GFR ( Amer) Est GFR (Non-Af Amer) BUN/Creatinine Ratio Glucose POC Glucose Lactate 1.0 Calcium Phosphorus Magnesium Total Bilirubin AST ALT Alkaline Phosphatase Total Protein Albumin Globulin Albumin/Globulin Ratio Urine Color Urine Appearance Urine pH Ur Specific Williamson Urine Protein Urine Glucose (UA) Urine Ketones Urine Blood Urine Nitrite Urine Bilirubin Urine Urobilinogen Ur Leukocyte Esterase Urine WBC (Auto) Urine RBC (Auto) U Hyaline Cast (Auto) U Epithel Cells (Auto) Urine Bacteria (Auto) Stl C. diff Tox B Gene Negative Cdiff Gene Influenza Type A (PCR) Influenza Type B (PCR) Blood Type O Negative Antibody Screen NEGATIVE 07/04/19 07/04/19 07/04/19 18:32 21:39 22:51 WBC RBC Hgb Hct MCV MCH MCHC RDW Std Deviation RDW Coeff of Leonela Plt Count MPV Neutrophils % (Manual) Lymphocytes % (Manual) Monocytes % (Manual) Neutrophils # (Manual) Total Absolute Neuts Lymphocytes # (Manual) Total Abs Lymphocytes Monocytes # (Manual) Smudge Cells Anisocytosis PT INR APTT PTT Ratio Sodium Potassium Chloride Carbon Dioxide Anion Gap BUN Creatinine Est Cr Clr Drug Dosing Est GFR ( Amer) Est GFR (Non-Af Amer) BUN/Creatinine Ratio Glucose POC Glucose 110 H Lactate Calcium Phosphorus Magnesium Total Bilirubin AST ALT Alkaline Phosphatase Total Protein Albumin Globulin Albumin/Globulin Ratio Urine Color Yellow Urine Appearance Cloudy A Urine pH 5.5 Ur Specific Williamson 1.016 Urine Protein Negative Urine Glucose (UA) Negative Urine Ketones Negative Urine Blood Negative Urine Nitrite Negative Urine Bilirubin Negative Urine Urobilinogen Negative Ur Leukocyte Esterase Negative Urine WBC (Auto) 0 Urine RBC (Auto) 0-4 U Hyaline Cast (Auto) 0 U Epithel Cells (Auto) 0-5 Urine Bacteria (Auto) Negative Stl C. diff Tox B Gene Influenza Type A (PCR) Neg for Influ A Influenza Type B (PCR) Neg for Influ B Blood Type Antibody Screen 07/05/19 07/05/19 07/05/19 05:15 05:15 08:20 WBC 50.88 H* D RBC 2.23 L Hgb 7.5 L Hct 23.1 L MCV 103.6 H MCH 33.6 MCHC 32.5 RDW Std Deviation 74.7 H RDW Coeff of Leonela 20.0 H Plt Count 125 L MPV 9.3 Neutrophils % (Manual) 0.8 Lymphocytes % (Manual) 99.2 Monocytes % (Manual) Neutrophils # (Manual) 0.41 L Total Absolute Neuts 0.41 L* Lymphocytes # (Manual) 50.47 H Total Abs Lymphocytes 50.47 H Monocytes # (Manual) Smudge Cells Present Anisocytosis Present PT INR APTT PTT Ratio Sodium 136 Potassium 4.4 Chloride 108 H Carbon Dioxide 23 Anion Gap 5.0 BUN 38 H Creatinine 1.80 H Est Cr Clr Drug Dosing 53.2 Est GFR ( Amer) 45.7 Est GFR (Non-Af Amer) 39.5 BUN/Creatinine Ratio 21.0 H Glucose 133 H POC Glucose 182 H Lactate Calcium 8.1 L Phosphorus 3.6 Magnesium 1.6 L Total Bilirubin 0.9 AST 11 L ALT 15 Alkaline Phosphatase 112 Total Protein 5.9 L Albumin 3.0 L Globulin 2.9 Albumin/Globulin Ratio 1.0 Urine Color Urine Appearance Urine pH Ur Specific Williamson Urine Protein Urine Glucose (UA) Urine Ketones Urine Blood Urine Nitrite Urine Bilirubin Urine Urobilinogen Ur Leukocyte Esterase Urine WBC (Auto) Urine RBC (Auto) U Hyaline Cast (Auto) U Epithel Cells (Auto) Urine Bacteria (Auto) Stl C. diff Tox B Gene Influenza Type A (PCR) Influenza Type B (PCR) Blood Type Antibody Screen Medications Administered Current Inpatient Medications Acetaminophen (Tylenol) 650 mg PO Q4H PRN PRN Reason: Pain or Fever Stop: 08/03/19 21:51 Last Admin: 07/05/19 07:45 Dose: 650 mg Documented by: Al Hydrox/Mg Hydrox/Simethicone (Maalox) 15 ml PO Q4H PRN PRN Reason: Dyspepsia Stop: 08/03/19 21:51 Atorvastatin Calcium (Lipitor) 40 mg PO QAM BELLA Stop: 08/04/19 08:59 Last Admin: 07/05/19 08:25 Dose: 40 mg Documented by: Cyanocobalamin (Vitamin B-12) 1,000 mcg PO PM BELLA Stop: 08/03/19 21:51 Last Admin: 07/04/19 22:49 Dose: 1,000 mcg Documented by: Dextrose (Dextrose 50%) 25 - 50 ml IV UD PRN; Protocol PRN Reason: Hypoglycemia Protocol Stop: 08/03/19 21:51 Enoxaparin Sodium (Lovenox) 30 mg SQ Q24H BELLA Stop: 08/03/19 21:59 Last Admin: 07/04/19 22:49 Dose: Not Given Documented by: Fish Oil (Angier-3 (Purified Fish Oil)) 1 gm PO QAM BELLA Stop: 08/04/19 08:59 Last Admin: 07/05/19 08:25 Dose: 1 gm Documented by: Glucagon (Glucagen) 1 mg SQ UD PRN; Protocol PRN Reason: Hypoglycemia Protocol Stop: 08/03/19 21:51 Glucose (Dex4 Glucose) 4 - 8 tabs PO UD PRN; Protocol PRN Reason: Hypoglycemia Protocol Stop: 08/03/19 21:51 Glucose (Glucose 40%) 15 - 30 gm PO UD PRN; Protocol PRN Reason: Hypoglycemia Protocol Stop: 08/03/19 21:51 Heparin Sodium (Porcine) (Heparin Sod 100 Unit/Ml Flush) 5 ml FLUSH PRN PRN PRN Reason: Flush Stop: 08/04/19 00:14 Cefepime HCl 2,000 mg/ Syringe 20 mls @ 5.5 mls/min IV Q12H BELLA; Protocol Stop: 07/07/19 05:59 Last Admin: 07/05/19 05:18 Dose: 5.5 mls/min Documented by: Vancomycin HCl 1,000 mg/ (Sodium Chloride) 270 mls @ 125 mls/hr IV Q12H BELLA; Protocol Stop: 07/07/19 09:44 Insulin Aspart (Novolog Flexpen) 0 units SC ACHS [facility] Stop: 08/03/19 21:51 Last Admin: 07/05/19 08:24 Dose: 1 units Documented by: Lactobacillus Acidophilus (Floranex) 4 tab PO QIDM [facility] Stop: 08/04/19 07:59 Last Admin: 07/05/19 08:25 Dose: 4 tab Documented by: Levothyroxine Sodium (Synthroid) 25 mcg PO [id number]@0630 [facility] Stop: 08/04/19 06:29 Last Admin: 07/05/19 05:19 Dose: 25 mcg Documented by: Levothyroxine Sodium (Synthroid) 50 mcg PO [id number]@0630 [facility] Stop: 08/05/19 06:29 Lisinopril (Zestril) 5 mg PO QAM [facility] Stop: 08/04/19 08:59 Last Admin: 07/05/19 08:25 Dose: 5 mg Documented by: Magnesium Hydroxide (Milk Of Magnesia) 30 ml PO Q12H PRN PRN Reason: Constipation Stop: 08/03/19 21:51 Miscellaneous (Carbohydrates For Hypoglycemia) 15 - 30 gm PO UD PRN PRN Reason: Hypoglycemia Protocol Stop: 08/03/19 21:51 Miscellaneous Information (Cefepime Consult Active) 1 ea N/A UD PRN PRN Reason: Consult Stop: 08/03/19 21:51 Miscellaneous Information (Consult) 1 ea N/A UD PRN PRN Reason: Consult Stop: 08/04/19 09:43 Multivitamins (Multivitamin Tab) 1 tab PO QAM [facility] Stop: 08/04/19 08:59 Last Admin: 07/05/19 08:25 Dose: 1 tab Documented by: Nitroglycerin (Nitrostat) 0.4 mg SL UD PRN PRN Reason: Chest Pain Stop: 08/03/19 21:51 Ondansetron HCl (Zofran) 4 mg IV Q6H PRN PRN Reason: Nausea Stop: 08/03/19 21:51 Polyethylene Glycol (Miralax Powder Packet) 17 gm PO DAILY PRN PRN Reason: Constipation Stop: 08/03/19 21:51 PG Care Time/CCT Total # of Minutes Spent Total Time Spent: 35 Total Time Spent with Patient: Total time spent is greater than 50% in coordination of care (as documented) at patient's floor/unit and/or counseling patient: Coding Level of Care Code 52512 Subseq Hosp Care Lvl 3 Diagnoses Neutropenic fever D70.9; R50.81 CLL (chronic lymphocytic leukemia) C91.90 Colostomy present Z93.3 DM type 2 (diabetes mellitus, type 2) E11.9 HTN (hypertension) I10 Hypertension type: essential hypertension Hypothyroid E03.9 Hyperlipidemia E78.5 DVT prophylaxis Z29.9 (1) HTN (hypertension) Hypertension type: essential hypertension Qualified Code(s): I10 - Essential (primary) hypertension
[2019-07-05] MEDS ORDERED: VANCOMYCIN HCL 2,250 MG in SODIUM CHLORIDE 0.9% 500 ML IV STA (09:53)
--- NOTE | 2019-07-05 10:57 | Pharmacy Report ---
Pharmacy Abx Dose Short Note - Date of Service July 05, 2019 - Assessment & Plan Assessment * 63 year old M receiving VANCOMYCIN + CEFEPIME for treatment of neutropenic fever * Day # 1 VANCOMYCIN , #2 CEFEPIME therapy * Source of infection unclear but 1 bottle of 1 set of BLCXs is growing gram positive cocci in chains (strep? enterococcus?) * ANC 410, Tmax 39.6 * negative influenza A/B PCR, negative c diff toxin B gene, UA negative * Renal fxn may be slightly worsen than baseline, baseline SCr ~1.5 (SCr 1.8 today) Plan Vancomycin * Loading dose: 2250mg x 1 (~20mg/kg) * Maint dose: 1500mg (~13mg/kg) IV Q 18 hrs * Goal trough level for bacteremia, unknown source : 15 to 20 mcg/mL * Will order trough level with 3rd maint dose if therapy to continue * P'kinetic estimates: Vd 0.6L/kg (BMI > 35), half-life ~14-15 hrs * OF NOTE, ONLY 48 HRS OF EMPIRIC THERAPY HAS BEEN ORDERED Cefepime * eCrCl 30-60cc/min * continue 2gm IV Q 12 hrs * OF NOTE, ONLY 48 HRS OF EMPIRIC THERAPY HAS BEEN ORDERED Pharmacy will continue to follow and will adjust dose/frequency as necessary. Thank you.
--- NOTE | 2019-07-05 12:33 | Electrocardiogram Report ---
Test Reason : Blood Pressure : / mmHG Vent. Rate : 092 BPM Atrial Rate : 092 BPM P-R Int : 192 ms QRS Dur : 084 ms QT Int : 334 ms P-R-T Axes : 012 -03 068 degrees QTc Int : 413 ms Normal sinus rhythm Low voltage QRS Borderline ECG When compared with ECG of 14-FEB-2019 01:13, QT has shortened Confirmed by Rolo Michele ([id number]) on 07/05/2019 12:33:07 PM Referred By: REFERRED SELF Confirmed By:Rolo Michele
[2019-07-05] MEDS: HEPARIN 100 UNIT/ML 5ML FLUSH FLUSH PRN ×2 (12:48→17:03)
[2019-07-05] MEDS: CYANOCOBALAMIN 500 MCG TABLET (VITAMIN B-12) PO SCH (20:49)
[2019-07-05] MEDS: ENOXAPARIN INJ 30 MG/0.3 ML SYR SQ SCH (20:51)
[2019-07-05] MEDS ORDERED: ACETAMINOPHEN 500 MG TAB PO ONE (23:00)
[2019-07-06] MEDS ORDERED: VANCOMYCIN HCL 1,500 MG in SODIUM CHLORIDE 0.9% 500 ML IV SCH (04:00)
[2019-07-06] MEDS ORDERED: ACETAMINOPHEN 500 MG TAB PO STA (05:13)
[2019-07-06] MEDS: LEVOTHYROXINE SODIUM 50 MCG TABLET PO SCH (05:31)
[2019-07-06] MEDS: CEFEPIME 2,000 MG in SYRINGE 7.5 ML IV SCH ×2 (05:58→17:25)
[2019-07-06] MEDS: HEPARIN 100 UNIT/ML 5ML FLUSH FLUSH PRN ×2 (05:58→17:29)
[2019-07-06 06:58] LABS: Creatinine Clr Calc Pharmacy 46.4 ml/min; Est GFR (African American) 39.1; Est GFR (Non-African American) 33.7
[2019-07-06] MEDS: INSULIN ASPART 100 UNITS/ML 3 ML PEN SC SCH ×4 (07:59→20:55)
[2019-07-06] MEDS: ATORVASTATIN 40 MG TAB PO SCH (08:00)
[2019-07-06] MEDS: MULTIVITAMIN TAB PO SCH (08:00)
[2019-07-06] MEDS: LACTOBACILLUS ACIDOPHILUS (FLORANEX) TAB PO SCH ×4 (08:00→20:52)
[2019-07-06] MEDS: OMEGA-3 (PURIFIED FISH OIL) 1 GM CAP PO SCH (08:01)
[2019-07-06 08:18] LABS: Hematocrit (blood only) 21.7 % (42-52); Hemoglobin 7.3 g/dL (14.0-18.0); Mean Corpuscular Hemoglobin 34.4 pg (25-34); Mean Corpuscular Hgb Conc 33.6 g/dL (32-36); Mean Corpuscular Volume 102.4 fL (80-100); Mean Platelet Volume 9.2 fL (7.4-10.4); Platelet Count 112 K/uL (130-400); RDW Coefficient of Variation 19.8 % (11.5-14.5); RDW Standard Deviation 73.9 fL (36.4-46.3); Red Blood Count 2.12 M/uL (4.7-6.1); White Blood Count 39.07 K/uL (4.8-10.8)
[2019-07-06 08:56] LABS: ALC (manual) 38.72 K/uL (1.2-3.4); ANC (manual) 0.35 K/uL (1.4-6.5); Anisocytosis Present; Lymphocytes # (manual) 38.72 K/uL (1.2-3.4); Lymphocytes % (manual) 99.1 %; Neutrophils # (manual) 0.35 K/uL (1.4-6.5); Neutrophils % (manual) 0.9 %; Poikilocytosis Present; Smudge Cells Present
--- NOTE | 2019-07-06 09:10 | Oncology Consultation ---
Date of Consultation July 06, 2019 Assessment & Plan (1) Neutropenic fever: Mr. Gray is growing gram positive cocci in his blood, so this is the likely source of his fevers. He is on vanc and cefepime at this time. He's still experiencing fevers and if that continues, we may need to broaden his coverage. Otherwise, I think it would be reasonable to wait for speciation. His port site is not obviously infected. I might consider drawing cultures from both the port and his peripheral blood. His neutropenia remains difficult to explain. I had planned to perform a bone marrow biopsy, but that likely can wait until his blood cultures clear. Infections can certainly suppress the marrow, particularly in patients whose marrows are weak because of recent suppression. Still, I remain uncertain about the explanation for his neutropenia and cannot rule out that it is related to his CLL. Present on Admission?: Yes History of Present Illness Reason for Consultation: Febrile neutropenia CLL Attending Physician: Yousuf Downey, DO History of Present Illness Mr. Gray is a 63 year old man with a history of CLL. He's had a complicated course and has recently been off of treatment due to a possibly drug-related rectal perforation and abscess. We had planned to start a new treatment regimen last month. He was admitted and unexpectedly developed severe neutropenia. The only new medication he had started was allopurinol for tumor lysis prophylaxis ahead of starting his new therapy. We held the allopurinol and gave him a few doses of GCSF. His ANC improved into the low 1000s and so he was discharged. He had a CBC on 07/01 that again revealed an ANC of 0.0, so I had planned to perform a bone marrow biopsy in the clinic yesterday. However, over the weekend, he became febrile and so presented to the ER. He has remained febrile since admission and had a temp of 38 earlier this morning. He has a chronic cough that is stable. He denies any sputum production or shortness of breath. He denies any recent changes in his stool output. He denies any sinus or URI symptoms. He denied any dysuria or rashes. He has enlarging bilateral axillary lymph nodes. Allergies Allergy/AdvReac Type Severity Reaction Status Date / Time ibrutinib [From Imbruvica] Allergy Intermediate LOOKED Verified 07/04/19 18:29 LIKE A LEOPARD SPOTTED ALL OVER allopurinol AdvReac Severe Neutropenia Verified 07/04/19 18:29 - severe Home Medications Home Medications Medication Instructions Recorded Confirmed Type atorvastatin 40 mg PO QAM 02/17/18 07/04/19 History coenzyme Q10 [Co Q-10] 100 mg PO QPM 02/17/18 07/04/19 History cyanocobalamin (vitamin B-12) 1,000 mcg PO PM 02/17/18 07/04/19 History [id number] 1 cap PO QAM 02/17/18 07/04/19 History [krill oil] multivitamin 1 tab PO QAM 02/17/18 07/04/19 History glimepiride 2 mg tablet 4 mg PO QAM #60 tab 02/15/19 07/04/19 Rx lisinopril 5 mg tablet 5 mg PO QAM #90 tab 03/15/19 07/04/19 Rx levothyroxine 25 mcg PO 3XWK 06/03/19 07/04/19 History levothyroxine 50 mcg PO 4XWK 06/03/19 07/04/19 History Lactobacillus acidophilus 0 cell PO QAM 07/04/19 07/04/19 History [Probiotic] Patient History Medical History Cataract, left eye Chronic kidney disease (Acute) STAGE 2 CLL (chronic lymphocytic leukemia) Diabetes mellitus, type 2 History of anesthesia reaction WAS AWAKE FOR APORT PLACEMENT, NEEDS MORE ANESTHESIA? Hyperlipidemia Hypertension Hypothyroidism Lower extremity edema Rash Stroke 2016--SPEECH IS SLIGHTLY SLOWER Tinnitus of both ears Surgical History H/O right cataract extraction History of tooth extraction WISDOM TEETH History of vascular access device L CHEST Social History Preferred Language: Lithuanian Communication Ability: Effective Ingot Supervisor Required: No Beliefs That Will Affect Care: None marital status: Current Living Situation: Alone Current Living Situation Comment: lives with and two children Other Information That Helps Us Care for You: No Feels Safe at Home: Yes Safety Concerns: Feels Safe At This Time Smoking Status: Never smoker Second Hand Exposure: No ; Hx Alcohol Use: No Hx Substance Use: No Review of Systems Review of Systems: All systems reviewed & are unremarkable except as noted in HPI & below Physical Exam Constitutional: comfortable and + diaphoretic; no acute distress ENMT: external ear and nose normal, oropharynx normal Respiratory: normal respiratory effort, lungs clear to auscultation Cardiovascular: RRR, no murmur, no edema Gastrointestinal (Abdomen): Inspection/Auscultation: normal bowel sounds; abdomen not distended Percussion/Palpation: abdomen soft; abdomen nontender Skin: no rashes Psychiatric: A+Ox3, euthymic affect Lymphatic: + axillary lymphadenopathy (enlarged bilateral axillary lymph nodes); no cervical lymphadenopathy Results & Data Vital Signs (Past 12 Hours) Vital Signs Temp Pulse Resp BP Pulse Ox 07/06/19 07:48 38.0 C H 86 18 112/51 L 98 07/06/19 05:10 38.5 C H 07/06/19 03:26 37.8 C H 78 19 115/52 L 97 07/05/19 23:23 38.6 C H 82 19 105/51 L 93 07/05/19 22:20 39.7 C H Laboratory Results Abnormal lab results 07/05/19 07/05/19 07/05/19 Range/Units 11:24 16:16 20:32 WBC (4.8-10.8) K/uL RBC (4.7-6.1) M/uL Hgb (14.0-18.0) g/dL Hct (42-52) % MCV (80-100) fL MCH (25-34) pg RDW Std Deviation (36.4-46.3) fL RDW Coeff of Leonela (11.5-14.5) % Plt Count (130-400) K/uL Neutrophils # (Manual) (1.4-6.5) K/uL Total Absolute Neuts (1.4-6.5) K/uL Lymphocytes # (Manual) (1.2-3.4) K/uL Total Abs Lymphocytes (1.2-3.4) K/uL Creatinine (0.6-1.4) mg/dl POC Glucose 130 H 121 H 120 H (70-99) mg/dl 07/06/19 07/06/19 07/06/19 Range/Units 05:50 05:53 07:31 WBC 39.07 H* (4.8-10.8) K/uL RBC 2.12 L (4.7-6.1) M/uL Hgb 7.3 L (14.0-18.0) g/dL Hct 21.7 L (42-52) % MCV 102.4 H (80-100) fL MCH 34.4 H (25-34) pg RDW Std Deviation 73.9 H (36.4-46.3) fL RDW Coeff of Leonela 19.8 H (11.5-14.5) % Plt Count 112 L (130-400) K/uL Neutrophils # (Manual) 0.35 L (1.4-6.5) K/uL Total Absolute Neuts 0.35 L* (1.4-6.5) K/uL Lymphocytes # (Manual) 38.72 H (1.2-3.4) K/uL Total Abs Lymphocytes 38.72 H (1.2-3.4) K/uL Creatinine 2.05 H (0.6-1.4) mg/dl POC Glucose 136 H (70-99) mg/dl
--- NOTE | 2019-07-06 12:29 | Hospitalist Progress Note ---
Date of Service July 06, 2019 Assessment & Plan (1) Neutropenic fever: still with fever this morning and ANC is 0.3 will give Neupogen 300mcg today will continue Cefepime and Vancomycin due to blood cultures with gram positive cocci growing group G beta strep, one of two cultures positive repeat blood cultures in the morning, will draw one set from port repeat CBC daily, look for ANC of > 1.5 and no fever for 24 hours no clear source of infection as CXR clear, UA negative, no abdominal symptoms does have permanent drain due to pericololonic abscess, draining more yellow fluid recently (2) CLL (chronic lymphocytic leukemia): currently not on treatment due to series of adverse reactions and then neutropenia plan for BM biopsy once he is fully recovered from fever, possible bacteremia (3) Colostomy present: due to rectal abscess 6 months ago colostomy working well, eating and drinking well (4) DM type 2 (diabetes mellitus, type 2): DM diet Novolog SS monitor for hypoglycemia, no episodes (5) HTN (hypertension): BP is low normal will hold further lisinopril (6) Hypothyroid: continue Synthroid (7) Hyperlipidemia: continue statin (8) DVT prophylaxis: (9) Chronic kidney disease: stage III/IV Cr up slightly at 2.0 today from 1.8 yesterday encouraged patient to drink more water/fluids will follow UO, he reports he is making plenty of urine repeat BMP in the morning Subjective patient feeling okay, still with fevers/chills has mild cough which is chronic eating and drinking well ANC down to 0.3 and Cr is up slightly to 2.0 blood culture with group G beta strep, awaiting sensitivities unclear etiology, only one set is positive will check blood cultures from port and peripherally tomorrow discussed with Dr. Blair, appreciate his recommendations, hold on BM biopsy in setting of infection Review of Systems Review of Systems: All systems reviewed & are unremarkable except as noted in HPI & below Constitutional: + fever, + chills, + fatigue and + weakness Respiratory: + cough; no sputum production Cardiovascular: no chest pain and no edema Gastrointestinal: no abdominal pain, no nausea, no vomiting, no constipation and no diarrhea/loose stools Physical Exam Constitutional: WD/WN, vitals as above Eyes: PERRL, conjunctivae normal, anicteric sclerae ENMT: external ear and nose normal, oropharynx normal Neck: trachea midline, no thyromegaly Respiratory: normal respiratory effort, lungs clear to auscultation Cardiovascular: RRR, no murmur, no edema Gastrointestinal (Abdomen): normal bowel sounds, soft, nontender, no hepatosplenomegaly Musculoskeletal: no cyanosis or clubbing, extremities motor strength 5/5 Skin: no rashes, warm and dry Neurologic: patellar DTR's 2+ bilat, sensation intact and PERRL, EOMI, accommodation nl, no face palsy, no dysarthria Psychiatric: A+Ox3, euthymic affect Lymphatic: no cervical or axillary lymphadenopathy + axillary lymphadenopathy Results & Data ([facility]) Vital Signs (Past 12 Hours) Vital Signs Temp Pulse Resp BP Pulse Ox 07/06/19 12:02 37.1 C 76 18 113/48 L 98 07/06/19 07:48 38.0 C H 86 18 112/51 L 98 07/06/19 05:10 38.5 C H 07/06/19 03:26 37.8 C H 78 19 115/52 L 97 Laboratory Results Laboratory Results - last 24 hr 07/05/19 07/05/19 07/05/19 11:15 16:16 20:32 WBC RBC Hgb Hct MCV MCH MCHC RDW Std Deviation RDW Coeff of Leonela Plt Count MPV Neutrophils % (Manual) Lymphocytes % (Manual) Neutrophils # (Manual) Total Absolute Neuts Lymphocytes # (Manual) Total Abs Lymphocytes Smudge Cells Poikilocytosis Anisocytosis Creatinine Est Cr Clr Drug Dosing Est GFR ( Amer) Est GFR (Non-Af Amer) POC Glucose 121 H 120 H Nasal Screen MRSA (PCR) Negative 07/06/19 07/06/19 07/06/19 05:50 05:53 07:31 WBC 39.07 H* RBC 2.12 L Hgb 7.3 L Hct 21.7 L MCV 102.4 H MCH 34.4 H MCHC 33.6 RDW Std Deviation 73.9 H RDW Coeff of Leonela 19.8 H Plt Count 112 L MPV 9.2 Neutrophils % (Manual) 0.9 Lymphocytes % (Manual) 99.1 Neutrophils # (Manual) 0.35 L Total Absolute Neuts 0.35 L* Lymphocytes # (Manual) 38.72 H Total Abs Lymphocytes 38.72 H Smudge Cells Present Poikilocytosis Present Anisocytosis Present Creatinine 2.05 H Est Cr Clr Drug Dosing 46.4 Est GFR ( Amer) 39.1 Est GFR (Non-Af Amer) 33.7 POC Glucose 136 H Nasal Screen MRSA (PCR) 07/06/19 11:22 WBC RBC Hgb Hct MCV MCH MCHC RDW Std Deviation RDW Coeff of Leonela Plt Count MPV Neutrophils % (Manual) Lymphocytes % (Manual) Neutrophils # (Manual) Total Absolute Neuts Lymphocytes # (Manual) Total Abs Lymphocytes Smudge Cells Poikilocytosis Anisocytosis Creatinine Est Cr Clr Drug Dosing Est GFR ( Amer) Est GFR (Non-Af Amer) POC Glucose 139 H Nasal Screen MRSA (PCR) Medications Administered Current Inpatient Medications Acetaminophen (Tylenol) 1,000 mg PO Q6H PRN PRN Reason: Fever Stop: 08/05/19 05:13 Al Hydrox/Mg Hydrox/Simethicone (Maalox) 15 ml PO Q4H PRN PRN Reason: Dyspepsia Stop: 08/03/19 21:51 Atorvastatin Calcium (Lipitor) 40 mg PO QAM [facility] Stop: 08/04/19 08:59 Last Admin: 07/06/19 08:00 Dose: 40 mg Documented by: Cyanocobalamin (Vitamin B-12) 1,000 mcg PO PM [facility] Stop: 08/03/19 21:51 Last Admin: 07/05/19 20:49 Dose: 1,000 mcg Documented by: Dextrose (Dextrose 50%) 25 - 50 ml IV UD PRN; Protocol PRN Reason: Hypoglycemia Protocol Stop: 08/03/19 21:51 Enoxaparin Sodium (Lovenox) 30 mg SQ Q24H [facility] Stop: 08/03/19 21:59 Last Admin: 07/05/19 20:51 Dose: Not Given Documented by: Filgrastim (Neupogen) 300 mcg SQ ONE ONE Stop: 07/06/19 12:31 Fish Oil ([place]-3 (Purified Fish Oil)) 1 gm PO QAM [facility] Stop: 08/04/19 08:59 Last Admin: 07/06/19 08:01 Dose: 1 gm Documented by: Glucagon (Glucagen) 1 mg SQ UD PRN; Protocol PRN Reason: Hypoglycemia Protocol Stop: 08/03/19 21:51 Glucose (Dex4 Glucose) 4 - 8 tabs PO UD PRN; Protocol PRN Reason: Hypoglycemia Protocol Stop: 08/03/19 21:51 Glucose (Glucose 40%) 15 - 30 gm PO UD PRN; Protocol PRN Reason: Hypoglycemia Protocol Stop: 08/03/19 21:51 Heparin Sodium (Porcine) (Heparin Sod 100 Unit/Ml Flush) 5 ml FLUSH PRN PRN PRN Reason: Flush Stop: 08/04/19 00:14 Last Admin: 07/06/19 05:58 Dose: 5 ml Documented by: Cefepime HCl 2,000 mg/ Syringe 20 mls @ 5.5 mls/min IV Q12H [facility]; Protocol Stop: 07/07/19 05:59 Last Admin: 07/06/19 05:58 Dose: 5.5 mls/min Documented by: Vancomycin HCl 1,500 mg/ (Sodium Chloride) 530 mls @ 200 mls/hr IV Q18H [facility]; Protocol Stop: 07/07/19 10:12 Last Infusion: 07/06/19 06:05 Dose: Infused Documented by: Insulin Aspart (Novolog Flexpen) 0 units SC ACHS [facility] Stop: 08/03/19 21:51 Last Admin: 07/06/19 12:00 Dose: 1 units Documented by: Lactobacillus Acidophilus (Floranex) 4 tab PO QIDM [facility] Stop: 08/04/19 07:59 Last Admin: 07/06/19 12:00 Dose: 4 tab Documented by: Levothyroxine Sodium (Synthroid) 25 mcg PO MoWeFr@0630 [facility] Stop: 08/04/19 06:29 Last Admin: 07/05/19 05:19 Dose: 25 mcg Documented by: Levothyroxine Sodium (Synthroid) 50 mcg PO [id number]@0630 [facility] Stop: 08/05/19 06:29 Last Admin: 07/06/19 05:31 Dose: 50 mcg Documented by: Lisinopril (Zestril) 5 mg PO QAM [facility] Stop: 08/04/19 08:59 Last Admin: 07/05/19 08:25 Dose: 5 mg Documented by: Magnesium Hydroxide (Milk Of Magnesia) 30 ml PO Q12H PRN PRN Reason: Constipation Stop: 08/03/19 21:51 Miscellaneous (Carbohydrates For Hypoglycemia) 15 - 30 gm PO UD PRN PRN Reason: Hypoglycemia Protocol Stop: 08/03/19 21:51 Miscellaneous Information (Cefepime Consult Active) 1 ea N/A UD PRN PRN Reason: Consult Stop: 08/03/19 21:51 Miscellaneous Information (Consult) 1 ea N/A UD PRN PRN Reason: Consult Stop: 07/07/19 10:12 Multivitamins (Multivitamin Tab) 1 tab PO QAM [facility] Stop: 08/04/19 08:59 Last Admin: 07/06/19 08:00 Dose: 1 tab Documented by: Nitroglycerin (Nitrostat) 0.4 mg SL UD PRN PRN Reason: Chest Pain Stop: 08/03/19 21:51 Ondansetron HCl (Zofran) 4 mg IV Q6H PRN PRN Reason: Nausea Stop: 08/03/19 21:51 Polyethylene Glycol (Miralax Powder Packet) 17 gm PO DAILY PRN PRN Reason: Constipation Stop: 08/03/19 21:51 PG Care Time/CCT Total # of Minutes Spent Total Time Spent with Patient: Total time spent is greater than 50% in coordination of care (as documented) at patient's floor/unit and/or counseling patient: Coding Level of Care Code 26571 Subseq Hosp Care Lvl 3 Diagnoses Neutropenic fever D70.9; R50.81 CLL (chronic lymphocytic leukemia) C91.90 Colostomy present Z93.3 DM type 2 (diabetes mellitus, type 2) E11.9 HTN (hypertension) I10 Hypertension type: essential hypertension Hypothyroid E03.9 Hyperlipidemia E78.5 DVT prophylaxis Z29.9 Chronic kidney disease N18.9 (1) HTN (hypertension) Hypertension type: essential hypertension Qualified Code(s): I10 - Essential (primary) hypertension
[2019-07-06] MEDS ORDERED: FILGRASTIM 300 MCG/ML VIAL SQ ONE (12:30)
[2019-07-06] MEDS: ACETAMINOPHEN 500 MG TAB PO PRN ×2 (16:06→23:32)
[2019-07-06] MEDS: CYANOCOBALAMIN 500 MCG TABLET (VITAMIN B-12) PO SCH (20:53)
[2019-07-06] MEDS: ENOXAPARIN INJ 30 MG/0.3 ML SYR SQ SCH (20:53)
[2019-07-07] MEDS: LEVOTHYROXINE SODIUM 25 MCG TABLET PO SCH (05:39)
[2019-07-07] MEDS: CEFEPIME 2,000 MG in SYRINGE 7.5 ML IV SCH ×2 (05:39→17:17)
[2019-07-07 06:58] LABS: Hematocrit (blood only) 20.2 % (42-52); Hemoglobin 6.7 g/dL (14.0-18.0); Mean Corpuscular Hemoglobin 34.2 pg (25-34); Mean Corpuscular Hgb Conc 33.2 g/dL (32-36); Mean Corpuscular Volume 103.1 fL (80-100); RDW Standard Deviation 74.8 fL (36.4-46.3); Red Blood Count 1.96 M/uL (4.7-6.1)
[2019-07-07 07:14] LABS: Mean Platelet Volume 9.9 fL (7.4-10.4); Platelet Count 96 K/uL (130-400)
[2019-07-07 07:25] LABS: BUN Creatinine Ratio 20.9 (10-20); Calcium 8.7 mg/dl (8.5-10.1); Creatinine Clr Calc Pharmacy 48.1 ml/min; Est GFR (African American) 41.3; Est GFR (Non-African American) 35.6; Potassium 3.7 mmol/L (3.5-5.1)
[2019-07-07] MEDS ORDERED: SODIUM CHLORIDE 0.9% 250 ML IV PRN (07:39)
[2019-07-07 07:41] LABS: Anisocytosis Present; Platelet Estimate Decreased (Normal); Poikilocytosis Present; Smudge Cells Present
[2019-07-07] MEDS: INSULIN ASPART 100 UNITS/ML 3 ML PEN SC SCH ×4 (08:34→22:12)
[2019-07-07] MEDS: LACTOBACILLUS ACIDOPHILUS (FLORANEX) TAB PO SCH ×4 (08:35→22:11)
[2019-07-07] MEDS: ATORVASTATIN 40 MG TAB PO SCH (08:36)
[2019-07-07] MEDS: OMEGA-3 (PURIFIED FISH OIL) 1 GM CAP PO SCH (08:36)
[2019-07-07] MEDS: MULTIVITAMIN TAB PO SCH (08:36)
[2019-07-07] MEDS ORDERED: FILGRASTIM 300 MCG/ML VIAL SQ ONE (09:30)
[2019-07-07] MEDS: ACETAMINOPHEN 500 MG TAB PO PRN (12:15)
[2019-07-07] MEDS: ENOXAPARIN INJ 40 MG/0.4 ML SYR SQ SCH (17:17)
--- NOTE | 2019-07-07 17:50 | Hospitalist Progress Note ---
Date of Service July 07, 2019 Assessment & Plan (1) Neutropenic fever: last fever was at midnight last night, no fevers so far today which is improvement ANC however is worse, down to 0.00 will give Neupogen 300mcg again today, this is 2nd dose may need to give higher dose tomorrow will continue Cefepime one blood culture growing group G beta strep, sensitive to Cefepime repeat blood cultures this morning with one drawn one from port repeat CBC daily, look for ANC of > 1.5 and no fever for 24 hours no clear source of infection as CXR clear, UA negative, no abdominal symptoms does have permanent drain due to perirectal abscess, draining more yellow fluid recently skin around rectum is soft, non tender, absolutely no clinical signs of induration or repeat abscess (2) 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, bone marrow suppression will transfuse 2 units irradiated RBC today for Hb of 6.7 repeat CBC in the morning has some fatigue but no other symptoms attributed to anemia (3) CLL (chronic lymphocytic leukemia): currently not on treatment due to series of adverse reactions and then neutropenia plan for BM biopsy once he is fully recovered from fever, possible bacteremia WBC is 25k today (4) Colostomy present: due to rectal abscess 6 months ago colostomy working well, eating and drinking well more loose stools today, will monitor for further changes (5) DM type 2 (diabetes mellitus, type 2): DM diet Novolog monitor for hypoglycemia, no episodes today (6) HTN (hypertension): BP is low normal will hold further lisinopril (7) Hypothyroid: continue Synthroid (8) Hyperlipidemia: continue statin (9) Chronic kidney disease: stage III/IV Cr down to 1.9 from 2.0 yesterday patient is drinking a lot of fluids and Powerade will follow UO, he reports he is making plenty of urine repeat BMP in the morning (10) DVT prophylaxis: continue Lovenox for now, Platelets in the 90's if they drop further then will need to hold Lovenox Subjective no fevers today which is an improvement no new symptoms, just feels fatigued had sweats last night after fever broke eating well, trying to drink a lot of fluids reviewed labs, ANC is 0.00, Cr down slightly to 1.9 hb down to 6.7, 2 units of irradiated WBC ordered and transfused this afternoon, tolerated well updated family at the bedside will repeat labs in the AM blood culture with strep shows sensitive to Cefepime, will continue Review of Systems Review of Systems: All systems reviewed & are unremarkable except as noted in HPI & below Constitutional: + fever, + chills, + sweats, + fatigue and + weakness Respiratory: + cough; no dyspnea Cardiovascular: no chest pain and no edema Gastrointestinal: + diarrhea/loose stools (stools more loose in ostomy than normal); no abdominal pain, no nausea, no vomiting and no constipation Genitourinary: no dysuria Physical Exam Constitutional: WD/WN, vitals as above Eyes: PERRL, conjunctivae normal, anicteric sclerae ENMT: external ear and nose normal, oropharynx normal Neck: trachea midline, no thyromegaly Respiratory: normal respiratory effort, lungs clear to auscultation Cardiovascular: RRR, no murmur, no edema Gastrointestinal (Abdomen): normal bowel sounds, soft, nontender, no hepatosplenomegaly Musculoskeletal: no cyanosis or clubbing, extremities motor strength 5/5 Skin: no rashes, warm and dry Neurologic: patellar DTR's 2+ bilat, sensation intact and PERRL, EOMI, accommodation nl, no face palsy, no dysarthria Psychiatric: A+Ox3, euthymic affect Lymphatic: no cervical or axillary lymphadenopathy + axillary lymphadenopathy Results & Data ([facility]) Vital Signs (Past 12 Hours) Vital Signs Temp Pulse Pulse Resp BP BP Pulse Ox 07/07/19 17:21 36.7 C 84 18 114/64 98 07/07/19 17:05 84 16 118/62 97 07/07/19 16:36 88 16 109/60 98 07/07/19 16:29 36.6 C 68 16 119/62 98 07/07/19 16:06 70 16 117/61 98 07/07/19 15:59 72 07/07/19 15:51 36.8 C 74 18 117/62 98 07/07/19 15:50 74 16 117/64 97 07/07/19 15:35 36.8 C 72 16 116/62 97 07/07/19 15:19 36.7 C 72 18 110/59 L 98 07/07/19 14:20 37.2 C 77 19 104/57 L 96 07/07/19 14:19 37.2 C 75 19 104/57 L 96 07/07/19 13:19 37.2 C 78 19 113/57 L 97 07/07/19 12:49 37.1 C 78 18 136/56 L 95 07/07/19 12:34 37.1 C 81 18 115/57 L 96 07/07/19 12:18 37.2 C 79 18 116/59 L 97 07/07/19 11:30 37.1 C 76 19 115/59 L 95 07/07/19 08:00 73 07/07/19 07:20 37.0 C 79 18 117/47 L 99 Laboratory Results Laboratory Results - last 24 hr 07/04/19 07/06/19 07/07/19 18:20 20:40 06:20 WBC RBC Hgb Hct MCV MCH MCHC RDW Std Deviation RDW Coeff of Leonela Plt Count MPV Neutrophils % (Manual) Lymphocytes % (Manual) Neutrophils # (Manual) Total Absolute Neuts Lymphocytes # (Manual) Total Abs Lymphocytes Smudge Cells Platelet Estimate Poikilocytosis Anisocytosis Sodium 137 Potassium 3.7 Chloride 110 H Carbon Dioxide 21 Anion Gap 6.0 BUN 41 H Creatinine 1.96 H Est Cr Clr Drug Dosing 48.1 Est GFR ( Amer) 41.3 Est GFR (Non-Af Amer) 35.6 BUN/Creatinine Ratio 20.9 H Glucose 116 H POC Glucose 135 H Calcium 8.7 Blood Type O Negative Antibody Screen NEGATIVE Crossmatch See Detail 07/07/19 07/07/19 07/07/19 06:20 07:32 11:27 WBC 25.60 H RBC 1.96 L Hgb 6.7 L* Hct 20.2 L* MCV 103.1 H MCH 34.2 H MCHC 33.2 RDW Std Deviation 74.8 H RDW Coeff of Leonela 20.0 H Plt Count 96 L MPV 9.9 Neutrophils % (Manual) 0.0 Lymphocytes % (Manual) 100.0 Neutrophils # (Manual) 0.00 L Total Absolute Neuts 0.00 L* Lymphocytes # (Manual) 25.60 H Total Abs Lymphocytes 25.60 H Smudge Cells Present Platelet Estimate Decreased L Poikilocytosis Present Anisocytosis Present Sodium Potassium Chloride Carbon Dioxide Anion Gap BUN Creatinine Est Cr Clr Drug Dosing Est GFR ( Amer) Est GFR (Non-Af Amer) BUN/Creatinine Ratio Glucose POC Glucose 123 H 160 H Calcium Blood Type Antibody Screen Crossmatch 07/07/19 16:31 WBC RBC Hgb Hct MCV MCH MCHC RDW Std Deviation RDW Coeff of Leonela Plt Count MPV Neutrophils % (Manual) Lymphocytes % (Manual) Neutrophils # (Manual) Total Absolute Neuts Lymphocytes # (Manual) Total Abs Lymphocytes Smudge Cells Platelet Estimate Poikilocytosis Anisocytosis Sodium Potassium Chloride Carbon Dioxide Anion Gap BUN Creatinine Est Cr Clr Drug Dosing Est GFR ( Amer) Est GFR (Non-Af Amer) BUN/Creatinine Ratio Glucose POC Glucose 147 H Calcium Blood Type Antibody Screen Crossmatch Medications Administered Current Inpatient Medications Acetaminophen (Tylenol) 1,000 mg PO Q6H PRN PRN Reason: Fever Stop: 08/05/19 05:13 Last Admin: 07/07/19 12:15 Dose: 1,000 mg Documented by: Al Hydrox/Mg Hydrox/Simethicone (Maalox) 15 ml PO Q4H PRN PRN Reason: Dyspepsia Stop: 08/03/19 21:51 Atorvastatin Calcium (Lipitor) 40 mg PO QAM [facility] Stop: 08/04/19 08:59 Last Admin: 07/07/19 08:36 Dose: 40 mg Documented by: Cyanocobalamin (Vitamin B-12) 1,000 mcg PO PM [facility] Stop: 08/03/19 21:51 Last Admin: 07/06/19 20:53 Dose: 1,000 mcg Documented by: Dextrose (Dextrose 50%) 25 - 50 ml IV UD PRN; Protocol PRN Reason: Hypoglycemia Protocol Stop: 08/03/19 21:51 Enoxaparin Sodium (Lovenox) 40 mg SQ Q24H [facility] Stop: 08/06/19 17:59 Last Admin: 07/07/19 17:17 Dose: Not Given Documented by: Fish Oil ([place]-3 (Purified Fish Oil)) 1 gm PO QAM [facility] Stop: 08/04/19 08:59 Last Admin: 07/07/19 08:36 Dose: 1 gm Documented by: Glucagon (Glucagen) 1 mg SQ UD PRN; Protocol PRN Reason: Hypoglycemia Protocol Stop: 08/03/19 21:51 Glucose (Dex4 Glucose) 4 - 8 tabs PO UD PRN; Protocol PRN Reason: Hypoglycemia Protocol Stop: 08/03/19 21:51 Glucose (Glucose 40%) 15 - 30 gm PO UD PRN; Protocol PRN Reason: Hypoglycemia Protocol Stop: 08/03/19 21:51 Heparin Sodium (Porcine) (Heparin Sod 100 Unit/Ml Flush) 5 ml FLUSH PRN PRN PRN Reason: Flush Stop: 08/04/19 00:14 Last Admin: 07/06/19 17:29 Dose: 5 ml Documented by: Cefepime HCl 2,000 mg/ Syringe 20 mls @ 5.5 mls/min IV Q12H [facility]; Protocol Stop: 07/14/19 05:59 Last Admin: 07/07/19 17:17 Dose: 5.5 mls/min Documented by: Insulin Aspart (Novolog Flexpen) 0 units SC [facility] Stop: 08/03/19 21:51 Last Admin: 07/07/19 17:18 Dose: Not Given Documented by: Lactobacillus Acidophilus (Floranex) 4 tab PO QIDM [facility] Stop: 08/04/19 07:59 Last Admin: 07/07/19 17:16 Dose: 4 tab Documented by: Levothyroxine Sodium (Synthroid) 25 mcg PO [id number] [facility] Stop: 08/04/19 06:29 Last Admin: 07/07/19 05:39 Dose: 25 mcg Documented by: Levothyroxine Sodium (Synthroid) 50 mcg PO [email or web address] [facility] Stop: 08/05/19 06:29 Last Admin: 07/06/19 05:31 Dose: 50 mcg Documented by: Lisinopril (Zestril) [facility] Stop: 08/04/19 08:59 Last Admin: 07/05/19 08:25 Dose: 5 mg Documented by: Magnesium Hydroxide (Milk Of Magnesia) 30 ml PO Q12H PRN PRN Reason: Constipation Stop: 08/03/19 21:51 Miscellaneous (Carbohydrates For Hypoglycemia) 15 - 30 gm PO UD PRN PRN Reason: Hypoglycemia Protocol Stop: 08/03/19 21:51 Miscellaneous Information (Cefepime Consult Active) 1 ea N/A UD PRN PRN Reason: Consult Stop: 08/03/19 21:51 Multivitamins (Multivitamin Tab) [facility] Stop: 08/04/19 08:59 Last Admin: 07/07/19 08:36 Dose: 1 tab Documented by: Nitroglycerin (Nitrostat) 0.4 mg SL UD PRN PRN Reason: Chest Pain Stop: 08/03/19 21:51 Ondansetron HCl (Zofran) 4 mg IV Q6H PRN PRN Reason: Nausea Stop: 08/03/19 21:51 Polyethylene Glycol (Miralax Powder Packet) 17 gm PO DAILY PRN PRN Reason: Constipation Stop: 08/03/19 21:51 PG Care Time/CCT Total # of Minutes Spent Total Time Spent with Patient: Total time spent is greater than 50% in coordination of care (as documented) at patient's floor/unit and/or counseling patient: Coding Level of Care Code 32004 Subseq Hosp Care Lvl 3 Diagnoses Neutropenic fever D70.9; R50.81 Anemia D64.9 CLL (chronic lymphocytic leukemia) C91.90 Colostomy present Z93.3 DM type 2 (diabetes mellitus, type 2) E11.9 HTN (hypertension) I10 Hypertension type: essential hypertension Hypothyroid E03.9 Hyperlipidemia E78.5 Chronic kidney disease N18.9 DVT prophylaxis Z29.9 (1) HTN (hypertension) Hypertension type: essential hypertension Qualified Code(s): I10 - Essential (primary) hypertension
[2019-07-07] MEDS: HEPARIN 100 UNIT/ML 5ML FLUSH FLUSH PRN (18:21)
[2019-07-07] MEDS: CYANOCOBALAMIN 500 MCG TABLET (VITAMIN B-12) PO SCH (22:10)
[2019-07-08] MEDS: LEVOTHYROXINE SODIUM 50 MCG TABLET PO SCH (05:37)
[2019-07-08] MEDS: CEFEPIME 2,000 MG in SYRINGE 7.5 ML IV SCH ×2 (05:37→17:31)
[2019-07-08 05:46] LABS: Mean Corpuscular Hgb Conc 33.7 g/dL (32-36)
[2019-07-08 06:22] LABS: BUN Creatinine Ratio 24.1 (10-20); Calcium 8.6 mg/dl (8.5-10.1); Creatinine Clr Calc Pharmacy 50.9 ml/min; Est GFR (African American) 44.2; Est GFR (Non-African American) 38.2; Potassium 3.6 mmol/L (3.5-5.1)
[2019-07-08 06:37] LABS: Hematocrit (blood only) 24.6 % (42-52); Hemoglobin 8.3 g/dL (14.0-18.0); Mean Corpuscular Hemoglobin 33.3 pg (25-34); Mean Corpuscular Volume 98.8 fL (80-100); Mean Platelet Volume 9.7 fL (7.4-10.4); Platelet Count 93 K/uL (130-400); RDW Standard Deviation 70.7 fL (36.4-46.3); Red Blood Count 2.49 M/uL (4.7-6.1); White Blood Count 26.18 K/uL (4.8-10.8)
[2019-07-08 06:41] LABS: Anisocytosis Present; Smudge Cells Present
[2019-07-08 06:42] LABS: ALC (manual) 25.26 K/uL (1.2-3.4); ANC (manual) 0.45 K/uL (1.4-6.5); Lymphocytes # (manual) 25.26 K/uL (1.2-3.4); Lymphocytes % (manual) 96.5 %; Metamyelocytes # (manual) 0.24 K/uL (0-0); Metamyelocytes % (manual) 0.9 %; Monocytes # (manual) 0.24 K/uL (0.11-0.59); Monocytes % (manual) 0.9 %; Neutrophils # (manual) 0.45 K/uL (1.4-6.5); Neutrophils % (manual) 1.7 %
[2019-07-08] MEDS: LACTOBACILLUS ACIDOPHILUS (FLORANEX) TAB PO SCH ×4 (08:01→20:44)
[2019-07-08] MEDS: MULTIVITAMIN TAB PO SCH (08:02)
[2019-07-08] MEDS: ATORVASTATIN 40 MG TAB PO SCH (08:02)
[2019-07-08] MEDS: OMEGA-3 (PURIFIED FISH OIL) 1 GM CAP PO SCH (08:02)
--- NOTE | 2019-07-08 09:13 | Hospitalist Progress Note ---
Date of Service July 08, 2019 Assessment & Plan (1) Neutropenic fever: no fevers for 24 hours which is first time this has happened, improvement ANC up to 0.4 from 0.0 will give Neupogen 480cg today, this is third dose will continue Cefepime one blood culture growing group G beta strep, sensitive to Cefepime repeat blood cultures drawn 07/07, results still pending repeat CBC daily, look for ANC of > 1.5 and no fever no clear source of infection as CXR clear, UA negative, no abdominal symptoms does have permanent drain due to perirectal abscess, draining more yellow fluid recently skin around rectum is soft, non tender, absolutely no clinical signs of induration or repeat abscess (2) 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, bone marrow suppression transfused 2 units irradiated RBC 07/07 for Hb of 6.7 HB up to 8.3 today repeat CBC in the morning has some fatigue but no other symptoms attributed to anemia (3) CLL (chronic lymphocytic leukemia): currently not on treatment due to series of adverse reactions and then neutropenia plan for BM biopsy once he is fully recovered from fever, possible bacteremia WBC is elevated, stable (4) Colostomy present: due to rectal abscess 6 months ago colostomy working well, eating and drinking well (5) DM type 2 (diabetes mellitus, type 2): DM diet Novolog monitor for hypoglycemia, no episodes so far (6) HTN (hypertension): BP is low normal will hold further lisinopril (7) Hypothyroid: continue Synthroid (8) Hyperlipidemia: continue statin (9) Chronic kidney disease: stage III/IV Cr down to 1.4 from 1.9 yesterday patient is drinking a lot of fluids and Powerade will follow UO, he reports he is making plenty of urine repeat BMP in the morning (10) DVT prophylaxis: continue Lovenox for now, Platelets in the 90's if they drop further then will need to hold Lovenox Subjective reviewed labs, ANC up to 0.4, Hb is 8.3 after two units yesterday, platelets 90's Cr is 1.8 and electrolytes stable no fevers for over 24 hours which is an improvement eating well, says he has some fatigue and muscle weakness, encouraged him to walk in halls with mask no chest pain, no dyspnea repeat cultures with no growth thus far Review of Systems Review of Systems: All systems reviewed & are unremarkable except as noted in HPI & below Constitutional: + sweats, + fatigue and + weakness; no fever and no chills Respiratory: no cough and no dyspnea Cardiovascular: no chest pain and no edema Gastrointestinal: + diarrhea/loose stools; no abdominal pain, no nausea and no vomiting Physical Exam Constitutional: WD/WN, vitals as above Eyes: PERRL, conjunctivae normal, anicteric sclerae ENMT: external ear and nose normal, oropharynx normal Neck: trachea midline, no thyromegaly Respiratory: normal respiratory effort, lungs clear to auscultation Cardiovascular: RRR, no murmur, no edema Gastrointestinal (Abdomen): normal bowel sounds, soft, nontender, no hepatosplenomegaly Musculoskeletal: no cyanosis or clubbing, extremities motor strength 5/5 Skin: no rashes, warm and dry Neurologic: patellar DTR's 2+ bilat, sensation intact and PERRL, EOMI, accommodation nl, no face palsy, no dysarthria Psychiatric: A+Ox3, euthymic affect Lymphatic: no cervical or axillary lymphadenopathy + axillary lymphadenopathy Results & Data ([facility]) Vital Signs (Past 12 Hours) Vital Signs Temp Pulse Pulse Resp BP Pulse Ox 07/08/19 07:22 36.9 C 67 19 116/50 L 97 07/08/19 02:48 36.6 C 73 17 121/57 L 99 07/08/19 00:32 74 07/07/19 23:36 37.2 C 76 18 103/60 95 Laboratory Results Laboratory Results - last 24 hr 07/04/19 07/07/19 07/07/19 18:20 11:27 16:31 WBC RBC Hgb Hct MCV MCH MCHC RDW Std Deviation RDW Coeff of Leonela Plt Count MPV Neutrophils % (Manual) Lymphocytes % (Manual) Monocytes % (Manual) Metamyelocytes % (Man) Neutrophils # (Manual) Total Absolute Neuts Lymphocytes # (Manual) Total Abs Lymphocytes Monocytes # (Manual) Metamyelocytes # (Man) Smudge Cells Anisocytosis Sodium Potassium Chloride Carbon Dioxide Anion Gap BUN Creatinine Est Cr Clr Drug Dosing Est GFR ( Amer) Est GFR (Non-Af Amer) BUN/Creatinine Ratio Glucose POC Glucose 160 H 147 H Calcium Blood Type O Negative Antibody Screen NEGATIVE Crossmatch See Detail 02/05/20 02/06/20 02/06/20 20:19 05:23 05:23 WBC 26.18 H RBC 2.49 L Hgb 8.3 L Hct 24.6 L MCV 98.8 MCH 33.3 MCHC 33.7 RDW Std Deviation 70.7 H RDW Coeff of Leonela 20.0 H Plt Count 93 L MPV 9.7 Neutrophils % (Manual) 1.7 Lymphocytes % (Manual) 96.5 Monocytes % (Manual) 0.9 Metamyelocytes % (Man) 0.9 Neutrophils # (Manual) 0.45 L Total Absolute Neuts 0.45 L* Lymphocytes # (Manual) 25.26 H Total Abs Lymphocytes 25.26 H Monocytes # (Manual) 0.24 Metamyelocytes # (Man) 0.24 H Smudge Cells Present Anisocytosis Present Sodium 140 Potassium 3.6 Chloride 113 H Carbon Dioxide 21 Anion Gap 6.0 BUN 45 H Creatinine 1.85 H Est Cr Clr Drug Dosing 50.9 Est GFR ( Amer) 44.2 Est GFR (Non-Af Amer) 38.2 BUN/Creatinine Ratio 24.1 H Glucose 125 H POC Glucose 159 H Calcium 8.6 Blood Type Antibody Screen Crossmatch 07/08/19 07:24 WBC RBC Hgb Hct MCV MCH MCHC RDW Std Deviation RDW Coeff of Leonela Plt Count MPV Neutrophils % (Manual) Lymphocytes % (Manual) Monocytes % (Manual) Metamyelocytes % (Man) Neutrophils # (Manual) Total Absolute Neuts Lymphocytes # (Manual) Total Abs Lymphocytes Monocytes # (Manual) Metamyelocytes # (Man) Smudge Cells Anisocytosis Sodium Potassium Chloride Carbon Dioxide Anion Gap BUN Creatinine Est Cr Clr Drug Dosing Est GFR ( Amer) Est GFR (Non-Af Amer) BUN/Creatinine Ratio Glucose POC Glucose 149 H Calcium Blood Type Antibody Screen Crossmatch Medications Administered Current Inpatient Medications Acetaminophen (Tylenol) 1,000 mg PO Q6H PRN PRN Reason: Fever Stop: 08/05/19 05:13 Last Admin: 07/07/19 12:15 Dose: 1,000 mg Documented by: Al Hydrox/Mg Hydrox/Simethicone (Maalox) 15 ml PO Q4H PRN PRN Reason: Dyspepsia Stop: 08/03/19 21:51 Atorvastatin Calcium ([facility]) [facility] Stop: 08/04/19 08:59 Last Admin: 07/08/19 08:02 Dose: 40 mg Documented by: Cyanocobalamin (Vitamin B-12) 1,000 mcg PO PM [facility] Stop: 08/03/19 21:51 Last Admin: 07/07/19 22:10 Dose: 1,000 mcg Documented by: Dextrose (Dextrose 50%) 25 - 50 ml IV UD PRN; Protocol PRN Reason: Hypoglycemia Protocol Stop: 08/03/19 21:51 Enoxaparin Sodium (Lovenox) 40 mg SQ Q24H [facility] Stop: 08/06/19 17:59 Last Admin: 07/07/19 17:17 Dose: Not Given Documented by: Filgrastim (Neupogen) 480 mcg SC ONE ONE Stop: 07/08/19 09:31 Fish Oil ([place]-3 (Purified Fish Oil)) 1 gm PO QAM [facility] Stop: 08/04/19 08:59 Last Admin: 07/08/19 08:02 Dose: 1 gm Documented by: Glucagon (Glucagen) 1 mg SQ UD PRN; Protocol PRN Reason: Hypoglycemia Protocol Stop: 08/03/19 21:51 Glucose (Dex4 Glucose) 4 - 8 tabs PO UD PRN; Protocol PRN Reason: Hypoglycemia Protocol Stop: 08/03/19 21:51 Glucose (Glucose 40%) 15 - 30 gm PO UD PRN; Protocol PRN Reason: Hypoglycemia Protocol Stop: 08/03/19 21:51 Heparin Sodium (Porcine) (Heparin Sod 100 Unit/Ml Flush) 5 ml FLUSH PRN PRN PRN Reason: Flush Stop: 08/04/19 00:14 Last Admin: 07/07/19 18:21 Dose: 5 ml Documented by: Cefepime HCl 2,000 mg/ Syringe 20 mls @ 5.5 mls/min IV Q12H [facility]; Protocol Stop: 07/14/19 05:59 Last Admin: 07/08/19 05:37 Dose: 5.5 mls/min Documented by: Insulin Aspart (Novolog Flexpen) 0 units SC ACHS [facility] Stop: 08/03/19 21:51 Last Admin: 07/07/19 22:12 Dose: Not Given Documented by: Lactobacillus Acidophilus (Floranex) 4 tab PO QIDM [facility] Stop: 08/04/19 07:59 Last Admin: 07/08/19 08:01 Dose: 4 tab Documented by: Levothyroxine Sodium (Synthroid) 25 mcg PO MoWeFr@[id number] [facility] Stop: 08/04/19 06:29 Last Admin: 07/07/19 05:39 Dose: 25 mcg Documented by: Levothyroxine Sodium (Synthroid) 50 mcg PO [email or web address] [facility] Stop: 08/05/19 06:29 Last Admin: 07/08/19 05:37 Dose: 50 mcg Documented by: Lisinopril (Zestril) 5 mg PO QAM [facility] Stop: 08/04/19 08:59 Last Admin: 07/05/19 08:25 Dose: 5 mg Documented by: Magnesium Hydroxide (Milk Of Magnesia) 30 ml PO Q12H PRN PRN Reason: Constipation Stop: 08/03/19 21:51 Miscellaneous (Carbohydrates For Hypoglycemia) 15 - 30 gm PO UD PRN PRN Reason: Hypoglycemia Protocol Stop: 08/03/19 21:51 Miscellaneous Information (Cefepime Consult Active) 1 ea N/A UD PRN PRN Reason: Consult Stop: 08/03/19 21:51 Multivitamins (Multivitamin Tab) 1 tab PO [facility] Stop: 08/04/19 08:59 Last Admin: 07/08/19 08:02 Dose: 1 tab Documented by: Nitroglycerin (Nitrostat) 0.4 mg SL UD PRN PRN Reason: Chest Pain Stop: 08/03/19 21:51 Ondansetron HCl (Zofran) 4 mg IV Q6H PRN PRN Reason: Nausea Stop: 08/03/19 21:51 Polyethylene Glycol (Miralax Powder Packet) 17 gm PO DAILY PRN PRN Reason: Constipation Stop: 08/03/19 21:51 PG Care Time/CCT Total # of Minutes Spent Total Time Spent with Patient: Total time spent is greater than 50% in coordination of care (as documented) at patient's floor/unit and/or counseling patient: Coding Level of Care Code 93081 Subseq Hosp Care Lvl 3 Diagnoses Neutropenic fever D70.9; R50.81 Anemia D64.9 CLL (chronic lymphocytic leukemia) C91.90 Colostomy present Z93.3 DM type 2 (diabetes mellitus, type 2) E11.9 HTN (hypertension) I10 Hypertension type: essential hypertension Hypothyroid E03.9 Hyperlipidemia E78.5 Chronic kidney disease N18.9 DVT prophylaxis Z29.9 (1) HTN (hypertension) Hypertension type: essential hypertension Qualified Code(s): I10 - Essential (primary) hypertension
[2019-07-08] MEDS: INSULIN ASPART 100 UNITS/ML 3 ML PEN SC SCH ×4 (09:21→20:48)
[2019-07-08] MEDS ORDERED: FILGRASTIM 480 MCG/1.6 ML VIAL SC ONE (09:30)
[2019-07-08] MEDS ORDERED: CHLORASEPTIC 1.4% SOLN 180 ML BTL MT PRN (13:41)
[2019-07-08] MEDS: ENOXAPARIN INJ 40 MG/0.4 ML SYR SQ SCH (17:32)
[2019-07-08] MEDS: CYANOCOBALAMIN 500 MCG TABLET (VITAMIN B-12) PO SCH (20:49)
[2019-07-09] MEDS: CEFEPIME 2,000 MG in SYRINGE 7.5 ML IV SCH (05:33)
[2019-07-09] MEDS: LEVOTHYROXINE SODIUM 25 MCG TABLET PO SCH (05:33)
[2019-07-09] MEDS: HEPARIN 100 UNIT/ML 5ML FLUSH FLUSH PRN ×2 (05:36→11:28)
[2019-07-09 06:03] LABS: Hematocrit (blood only) 23.1 % (42-52); Hemoglobin 7.9 g/dL (14.0-18.0); Mean Corpuscular Hemoglobin 33.6 pg (25-34); Mean Corpuscular Hgb Conc 34.2 g/dL (32-36); Mean Corpuscular Volume 98.3 fL (80-100); Platelet Count 116 K/uL (130-400); RDW Coefficient of Variation 19.8 % (11.5-14.5); RDW Standard Deviation 70.4 fL (36.4-46.3); Red Blood Count 2.35 M/uL (4.7-6.1); White Blood Count 33.98 K/uL (4.8-10.8)
[2019-07-09 06:45] LABS: ALC (manual) 32.79 K/uL (1.2-3.4); ANC (manual) 1.19 K/uL (1.4-6.5); Anisocytosis Present; Lymphocytes # (manual) 32.79 K/uL (1.2-3.4); Lymphocytes % (manual) 96.5 %; Neutrophils # (manual) 1.19 K/uL (1.4-6.5); Neutrophils % (manual) 3.5 %; Smudge Cells Present; Spherocytes Occasional
[2019-07-09] MEDS: OMEGA-3 (PURIFIED FISH OIL) 1 GM CAP PO SCH (08:55)
[2019-07-09] MEDS: ATORVASTATIN 40 MG TAB PO SCH (08:56)
[2019-07-09] MEDS: MULTIVITAMIN TAB PO SCH (08:56)
[2019-07-09] MEDS: LACTOBACILLUS ACIDOPHILUS (FLORANEX) TAB PO SCH (08:56)
[2019-07-09] MEDS: INSULIN ASPART 100 UNITS/ML 3 ML PEN SC SCH (08:57)
--- NOTE | 2019-07-09 09:02 | Hematology/Oncology Prog Note ---
Date of Service July 08, 2019 Assessment & Plan (1) Neutropenic fever: His fevers have resolved. His blood cultures are clear and since the only positive one was a skin bacteria, I suspect the specimen was contaminated. Regardless, he is feeling better. Most of the time, we do not identify a source of febrile neutropenia. As long as he is recovering and doing well, I do not think we need additional infectious workup at this time. We performed a bone marrow aspiration and biopsy at the bedside today. Nursing time out procedure was performed per protocol and written informed consent was obtained. 1% lidocaine without epinephrine was used for local anesthesia without complications. The patient was prepped and draped in usual sterile fashion and placed in the right lateral decubitus position. The left posterior superior iliac crest was located without difficulty. Using a standard 11-gauge bone marrow biopsy needle, the left posterior-superior iliac crest was entered without difficulty. Adequate spicules were seen. A sample of liquid marrow was aspirated and sent for flow c ytometry, cytogenetics, and other testing as appropriate. The left posterior- superior iliac spine was re-entered with a standard Jamshidi core biopsy needle. An adequate core biopsy was obtained. The patient had minimal bleeding post- procedure and adequate hemostasis was achieved. Present on Admission?: Yes Subjective Mr. Gray was comfortable in bed during our encounter. He was feeling better. His energy was up and he had no fevers or sweats. His cough has been persistent and he thought it was a bit worse when he lays back in bed. He denied any sinus symptoms, shortness of breath, dysuria, or changes in his stool output Review of Systems Review of Systems: All systems reviewed & are unremarkable except as noted in HPI & below Physical Exam Constitutional: healthy appearing and comfortable; no acute distress ENMT: external ear and nose normal, oropharynx normal Respiratory: normal respiratory effort, lungs clear to auscultation Cardiovascular: RRR, no murmur, no edema Gastrointestinal (Abdomen): Inspection/Auscultation: normal bowel sounds; abdomen not distended Percussion/Palpation: abdomen soft; abdomen nontender Stool in his ostomy is brown Skin: no rashes, warm and dry Psychiatric: A+Ox3, euthymic affect Results & Data Vital Signs (Past 12 Hours) Vital Signs Temp Pulse Resp BP BP Pulse Ox 07/09/19 07:13 36.7 C 65 18 133/70 97 02/07/20 03:57 36.3 C L 67 16 111/60 96 07/08/19 23:56 36.7 C 72 16 132/67 95 Laboratory Results Laboratory Tests 07/08/19 07/08/19 05:23 05:23 WBC 26.18 H Hgb 8.3 L Plt Count 93 L Creatinine 1.85 H His blood cultures have all been negative except the first one
[2019-07-09] MEDS ORDERED: FILGRASTIM 480 MCG/1.6 ML VIAL SC ONE (10:15)
--- NOTE | 2019-07-09 10:19 | Discharge Summary ---
Date of Service July 09, 2019 Admission HPI Per Admitting Provider Mr. Alphonso Gray is a 63 y/o male with past medical hx of CLL, splenomegaly, DM2, HLD, HTN, CVA, hypothryoid, colostomy, agranulocytosis who presented to [facility] with Fevers. He notes onset of fever and chills today around noon. He had a Tmax at home of 100.9, treated with Tylenol at home. He was instructed to come here to [facility] per Oncologist. He denies any other new symptoms, no chest pain, no shortness of breath, no difficulty with urination or change in colostomy outflow. He was started on Cefepime in the ED, given IVF and Tylenol. Principal Diagnosis CLL with neutropenic fever Discharge Exam Constitutional WD/WN, vitals as above Eyes PERRL, conjunctivae normal, anicteric sclerae ENMT external ear and nose normal, oropharynx normal Neck trachea midline, no thyromegaly Respiratory normal respiratory effort, lungs clear to auscultation Cardiovascular RRR, no murmur, no edema Gastrointestinal (Abdomen) normal bowel sounds, soft, nontender, no hepatosplenomegaly Musculoskeletal no cyanosis or clubbing, extremities motor strength 5/5 Skin no rashes, warm and dry Neurologic patellar DTR's 2+ bilat, sensation intact and PERRL, EOMI, accommodation nl, no face palsy, no dysarthria Psychiatric A+Ox3, euthymic affect Lymphatic no cervical or axillary lymphadenopathy + axillary lymphadenopathy Discharge Data Allergies Allergy/AdvReac Type Severity Reaction Status Date / Time ibrutinib [From Imbruvica] Allergy Intermediate LOOKED Verified 07/04/19 18:29 LIKE A LEOPARD SPOTTED ALL OVER allopurinol AdvReac Severe Neutropenia Verified 07/04/19 18:29 - severe Consultations 07/04/19 19:55 ED Decision to Admit Stat 07/04/19 21:52 Consult Case Management - Discharge Planning Routine Consult Oncology Routine Hospital Course (1) Neutropenic fever: no fevers for over 48 hours ANC up to 1.1 today will give Neupogen 480cg again today, this is fourth dose treated with Cefepime since time of admission one blood culture growing group G beta strep, sensitive to Cefepime and all cephalosporins repeat blood cultures drawn 07/07, no growth on cultures repeat CBC daily, ANC up to 1.1 today, give one more dose of Neupogen 480mcg today d/c to home on Keflex 500mg BID to complete 12 more days for 14 days total from negative culture order to repeat CBC with diff on Wednesday 07/[address] 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 Blair on 07/08 will follow up next week for results WBC is elevated, stable (4) Colostomy present: due to rectal abscess 6 months ago colostomy working well, eating and drinking well (5) DM type 2 (diabetes mellitus, type 2): DM diet Novolog monitor for hypoglycemia, no episodes so far (6) HTN (hypertension): BP is low normal resume Lisinopril (7) Hypothyroid: continue Synthroid (8) Hyperlipidemia: continue statin (9) Chronic kidney disease: stage III/IV Cr ranged from 1.8 to 2.0 during admission patient is drinking a lot of fluids and Powerade will follow UO, he reports he is making plenty of urine repeat BMP on 07/12 (10) DVT prophylaxis: continue Lovenox for now, Platelets in the 90's Total Time Total Time Spent Total Time Spent (In Minutes): 37 minutes Total Time Includes: Examination of the Patient, Discharge Planning, Medication Reconciliation, Communication With Other Providers and Other (Discussion with family at bedside) Discharge Plan Discharge Items Patient Disposition: Home - Self-Care Reason For Visit: NEUTROPENIC FEVER Discharge Diagnosis: Neutropenic fever Bacteremia Condition on Discharge: Good Goals: complete course of Keflex follow up with Dr. Blair next week at [facility] check CBC on Friday improve nutrition and strength Activity: Resume your previous activity Driving/Machine Use: Resume 1 day after discharge Weightbearing: Full weightbearing Non-emergency contact: Primary Care Provider and Oncologist Call non-emergency contact if: you have any medication questions, your symptoms worsen and you have a fever Follow-up/Referrals: Vinnie Crawford MD [Primary Care Provider] - 07/14/19 3:30 pm (Please call [phone] if you need to reschedule this appointment) Jose Alejandro Blair [Physician] - (Dr. Blair's office will call you to make a follow-up appointment. ) Diet: Carb Consistent or DM2 Ambulatory Orders: Basic Metabolic Panel (Routine) Timeframe: 3 Days Location: Determined by Patient Ordered By: Yousuf Downey Complete Blood Count with Diff (Routine) Timeframe: 3 Days Location: Determined by Patient Ordered By: Yousuf Downey Addtl Attending Provider Instructions: Medications: - KEFLEX: take twice daily for 12 more days to complete treatment of bacteremia Neutropenic fever, bacteremia with group G beta strep, repeat cultures negative no fever for over 48 hours final sensitivities for the strep culture show sensitive to cephalosporins, used Cefepime while here, will use Keflex on discharge Absolute neutrophil count up to 1.1, will give an additional dose of Neupogen today Anemia: due to bone marrow suppression in setting of leukemia received transfusion of 2 units on 07/07, tolerated well, Hb is 7.9 today recommend repeating CBC on Wednesday 07/12 CLL, neutropenia: s/p bone marrow biopsy with Dr. Blair follow up later next week for results and discuss treatment options Pending Studies at Discharge: Yes Studies:: bone marrow biopsy Stand-Alone Forms: [facility] Sm[facility] Cess[facility] Medications and DC Order Prescriptions: New cephalexin [Keflex] 500 mg capsule 500 mg PO BID 12 Days Qty: 24 RF: 0 Continued glimepiride 2 mg tablet 4 mg PO QAM Qty: 60 RF: 6 lisinopril 5 mg tablet 5 mg PO QAM Qty: 90 RF: 3 multivitamin Tablet 1 tab PO QAM RF: 0 atorvastatin 40 mg Tablet 40 mg PO QAM RF: 0 cyanocobalamin (vitamin B-12) 1,000 mcg Tablet 1,000 mcg PO PM RF: 0 coenzyme Q10 [Co Q-10] 100 mg Capsule 100 mg PO QPM RF: 0 [id number]-[id number]-ast [krill oil] 1,[id number] mg Capsule 1 cap PO QAM RF: 0 levothyroxine 25 mcg Tablet 25 mcg PO 3XWK RF: 0 levothyroxine 50 mcg tablet 50 mcg PO 4XWK RF: 0 Probiotic 10 billion cell Capsule 0 cell PO QAM RF: 0 Discharge Orders: Discharge Order (Routine); Ordered 07/09/19 Ordered By: Yousuf Downey Admission Data Admit Date/Time: 07/04/19 20:50 Attending Provider: Yousuf Downey Admit Provider: Isaiah Sweeney Primary Care Provider: Vinnie Crawford Other Providers: Jomar Gomez ; Kolton Morillo V Other Interventions: Discharge Summary Assessment (RN) Last Done: 07/09/19 11:18 Coding Level of Care Code D/C Day Management >30 mins Diagnoses Neutropenic fever D70.9; R50.81 Anemia D64.9 CLL (chronic lymphocytic leukemia) C91.90 Colostomy present Z93.3 DM type 2 (diabetes mellitus, type 2) E11.9 HTN (hypertension) I10 Hypertension type: essential hypertension Hypothyroid E03.9 Hyperlipidemia E78.5 Chronic kidney disease N18.9 DVT prophylaxis Z29.9
--- NOTE | 2019-07-16 16:34 | Coding Query ---
PATHOLOGY To promote full compliance with coding requirements relating to patient care, physician participation is requested in all cases of organic chemistry professor uncertainty. Please assist us with the question(s) below: Please review the Pathology report and please document any relevant diagnosis(es) below: Diagnosis(es): hypercellular bone marrow composed entirely of chronic lymphocytic lymphoma Thank you Consuelo WASHINGTON
== END 2019-07-09 12:52 | disposition home or self-care (01) | DRG 809 ==
LOC: ED 17:24 → SUATTDRO 20:50 → 2E 20:50 → 4W 07-08 11:08

== ENCOUNTER 2019-07-27 14:25 | Inpatient (IN) ==
[2019-07-27] MEDS ORDERED: SODIUM CHLORIDE 0.9% 1000ML 1,000 ML IV SCH (15:45)
--- NOTE | 2019-07-27 15:48 | Emergency Department Note ---
Entered by Jose Alejandro Muniz acting as a scribe for History of Present Illness General Chief complaint: Abnormal Labs/Diagnostic Testing Stated complaint: ABNORMAL LABS SENT BY [facility]CER [facility] Time Seen by Provider: 07/27/19 15:26 Source: patient History of Present Illness Onset (ago): day(s) (this morning) Pain Consistency: + constant Maximum Pain Intensity: 0 Current Pain Intensity: 0 Quality: + other (abnormal labs) The patient is a 63 year old male who presents to the emergency department with complaints of constant abnormal labs beginning this morning. The patient states that he has a history of CLL and kidney disease. He notes that he went to the [facility] this morning and had blood work done. He reports that he was then called and told to come to the emergency department because his potassium and uric acid were high. He states that he is taking a steroid in preparation for restarting his CLL medications. Home Medications Home Medications Medication Instructions Recorded Confirmed Type coenzyme Q10 [Co Q-10] 100 mg PO QPM 02/17/18 07/27/19 History cyanocobalamin (vitamin B-12) 1,000 mcg PO QPM 02/17/18 07/27/19 History multivitamin 1 tab PO QAM 02/17/18 07/27/19 History glimepiride 2 mg tablet 4 mg PO QAM #60 tab 02/15/19 07/27/19 Rx lisinopril 5 mg tablet 5 mg PO QAM #90 tab 03/15/19 07/27/19 Rx levothyroxine 50 mcg PO 4XWK 06/03/19 07/27/19 History atorvastatin 40 mg tablet 40 mg PO QAM #90 tab 07/15/19 07/27/19 Rx Bacillus coagulans [Digestive 1 cell PO BID 07/27/19 07/27/19 History Advantage] dexamethasone See Rx Instructions .ROUTE .COMPLEX 07/27/19 07/27/19 History hydrocortisone 1 applic TOPICAL BID 07/27/19 07/27/19 History levothyroxine 25 mcg PO 3XWK 07/27/19 07/27/19 History magnesium 0 mg PO QPM 07/27/19 07/27/19 History omega 6-vit-vae-fish oil [Fish Oil] 1 cap PO QAM 07/27/19 07/27/19 History Allergies Allergy/AdvReac Type Severity Reaction Status Date / Time ibrutinib [From Imbruvica] Allergy Intermediate LOOKED Verified 07/27/19 16:28 LIKE A LEOPARD SPOTTED ALL OVER allopurinol AdvReac Severe Neutropenia Verified 07/27/19 16:28 - severe Past Med/Surg History Medical History Cataract, left eye Chronic kidney disease (Acute) STAGE 2 CLL (chronic lymphocytic leukemia) Diabetes mellitus, type 2 History of anesthesia reaction WAS AWAKE FOR APORT PLACEMENT, NEEDS MORE ANESTHESIA? Hyperlipidemia Hypertension Hypothyroidism Lower extremity edema Rash Stroke 2016--SPEECH IS SLIGHTLY SLOWER Tinnitus of both ears Surgical History H/O right cataract extraction History of tooth extraction WISDOM TEETH History of vascular access device L CHEST Family History Father Family history of diabetes mellitus TIA (transient ischemic attack) Social History Preferred Language: Venezuelan Communication Ability: Effective Principal Quality Engineer Required: No Beliefs That Will Affect Care: None marital status: Current Living Situation: Alone Current Living Situation Comment: lives with and two children Feels Safe at Home: Yes Smoking Status: Never smoker Second Hand Exposure: No ; Hx Alcohol Use: No Hx Substance Use: No Review of Systems See HPI for pertinent positives & negatives. and A total of 10 systems reviewed and were otherwise negative Physical Exam Vital Signs Vital Signs - 24 hr 07/27/19 14:29 07/27/19 15:32 07/27/19 15:56 Temperature 36.3 C L Temperature Source Oral Pulse Rate 99 H 70 Pulse Rate from SpO2 Sensor 69 Respiratory Rate 19 22 Respiratory Effort / Characteristics Non-Labored Respiratory Depth Normal Blood Pressure 144/72 H 135/67 Blood Pressure Mean 96 82 Blood Pressure Position Sitting Pulse Oximetry 99 98 95 Oxygen Delivery Method Room Air Room Air Sepsis Recent Fever Within 48 Hours No Sepsis New/Unexplained Change in Mental Status No Sepsis Action Taken by Nursing No Action Required 07/27/19 16:42 07/27/19 17:00 07/27/19 17:22 Temperature Temperature Source Pulse Rate 68 75 66 Pulse Rate from SpO2 Sensor 69 76 66 Respiratory Rate 20 17 20 Respiratory Effort / Characteristics Respiratory Depth Blood Pressure 139/76 Blood Pressure Mean 105 Blood Pressure Position Pulse Oximetry 96 99 99 Oxygen Delivery Method Sepsis Recent Fever Within 48 Hours Sepsis New/Unexplained Change in Mental Status Sepsis Action Taken by Nursing 07/27/19 17:23 Temperature Temperature Source Pulse Rate 62 Pulse Rate from SpO2 Sensor 62 Respiratory Rate 20 Respiratory Effort / Characteristics Respiratory Depth Blood Pressure Blood Pressure Mean Blood Pressure Position Pulse Oximetry 99 Oxygen Delivery Method Sepsis Recent Fever Within 48 Hours Sepsis New/Unexplained Change in Mental Status Sepsis Action Taken by Nursing GENERAL: Patient is awake alert in no acute distress patient is resting comfortably and showing no signs of anxiety EYES: The conjunctivae are clear. The pupils are round and reactive. EARS, NOSE, MOUTH AND THROAT: The nose is without any evidence of any deformity. Mucous membranes are moist. Tongue is midline. NECK: The neck is nontender and supple. RESPIRATORY: Normal respiratory effort is noted there is no evidence of wheezing rhonchi or rales CARDIOVASCULAR: Regular rate and rhythm noted there no murmurs rubs or gallops normal S1 normal S2. GASTROINTESTINAL: The abdomen is soft. Abdomen is nontender. MUSCULOSKELETAL/EXTREMITIES: There is no evidence of gross deformity full range of motion is noted in the hips and shoulders. SKIN: Skin is warm and dry there is pedal edema bilaterally. NEUROLOGIC: Patient is awake alert and oriented x3. Course Course 1525: The patient was evaluated in room C10. A complete history and physical exam was performed. 1544: I discussed the patient's case with Dr. Blair - Medical Oncology, [facility]. He would like the patient to be admitted. 1700: Upon reevaluation, the patient is stable. I discussed the findings and the treatment plan with the patient. He expresses agreement and understanding. I spoke with Dr. Lezama of the [facility] Hospitalist Service. The patient will be evaluated for further management. Consultations Consultation #1: I discussed the patient's case with Dr. Blair - Medical Oncology, [facility]. He would like the patient to be admitted. Time: 15:44 Consultation #2: I reviewed the patient's case with Dr. Lezama - Hospitalist, [facility]. He will evaluate the patient for further management. Time: 17:00 Administered Medications Discontinued Medications Sodium Chloride (Nss 1000ml) 1,000 mls @ 999 mls/hr IV .Q1H1M BELLA Stop: 07/27/19 16:45 Last Infusion: 07/27/19 17:47 Dose: 0 mls/hr Documented by: [id number] Admin: 07/27/19 16:46 Dose: 999 mls/hr Documented by: [id number] Sodium Chloride (Nss 1000ml) 1,000 mls @ 999 mls/hr IV .Q1H1M ONE Stop: 07/27/19 17:52 Last Infusion: 07/27/19 18:27 Dose: 0 mls/hr Documented by: [id number] Admin: 07/27/19 17:23 Dose: 999 mls/hr Documented by: [id number] Rasburicase 6 mg/ Sodium (Chloride) 50 mls @ 100 mls/hr IV NOW ONE Stop: 07/27/19 18:29 Last Infusion: 07/27/19 19:39 Dose: 0 mls/hr Documented by: [id number] Cosigned by: [id number] Admin: 07/27/19 18:52 Dose: 100 mls/hr Documented by: [id number] Cosigned by: [id number] Insulin Human Regular (Novolin R U-100 Per Unit) 6 units IV NOW STA Stop: 07/27/19 16:53 Last Admin: 07/27/19 17:24 Dose: 6 units Documented by: [id number] Cosigned by: [id number] Medical Decision Making Differential Diagnosis Differential Diagnosis includes but is not limited to dehydration, stroke, anemia, hypoglycemia, hyponatremia, hypernatremia, urinary tract infection, pneumonia, bronchitis, sepsis, gastroenteritis, additional abdominal pathology, metabolic abnormalities and infections. Medical Records Attestation: I reviewed the patient's medical records. Home Medications Current Medication List: was personally reviewed by me Laboratory Data Attestation: I reviewed the patient's lab results. Result diagrams: 07/27/19 15:49 07/27/19 15:49 Lab Results 07/27/19 07/27/19 07/27/19 Range/Units 15:49 15:49 15:49 WBC 59.25 H* (4.8-10.8) K/uL RBC 2.29 L (4.7-6.1) M/uL Hgb 7.9 L (14.0-18.0) g/dL Hct 24.4 L (42-52) % MCV 106.6 H (80-100) fL MCH 34.5 H (25-34) pg MCHC 32.4 (32-36) g/dL RDW Std Deviation 74.7 H (36.4-46.3) fL RDW Coeff of Leonela 19.6 H (11.5-14.5) % Plt Count 185 (130-400) K/uL MPV 9.9 (7.4-10.4) fL Neutrophils % (Manual) 3.4 % Lymphocytes % (Manual) 96.6 % Neutrophils # (Manual) 2.01 (1.4-6.5) K/uL Total Absolute Neuts 2.01 (1.4-6.5) K/uL Lymphocytes # (Manual) 57.24 H (1.2-3.4) K/uL Smudge Cells Present Ovalocytes 1+ Schistocytes 1+ PT 12.2 H (9.0-12.0) Seconds INR 1.2 H (0.9-1.1) APTT 35.0 H (21.0-31.0) Seconds PTT Ratio 1.3 Fibrinogen 260 (184-400) mg/dl Fibrin Degrad Products (<10) mcg/ml VBG pH (7.36-7.41) VBG pCO2 (38-50) mmHg VBG pO2 mmHg VBG HCO3 mmol/L VBG O2 Saturation % VBG Base Excess mEq/L Barometric Pressure mm/Hg Sodium 129 L (136-145) mmol/L Potassium 5.8 H (3.5-5.1) mmol/L Chloride 99 (98-107) mmol/L Carbon Dioxide 20 L (21-32) mmol/L Anion Gap 10.0 (3-11) BUN 56 H (7-18) mg/dl Creatinine 1.88 H (0.6-1.4) mg/dl Est Cr Clr Drug Dosing 51.0 ml/min Est GFR ( Amer) 43.4 Est GFR (Non-Af Amer) 37.4 BUN/Creatinine Ratio 29.9 H (10-20) Glucose 444 H* (70-99) mg/dl Uric Acid 9.7 H (2.6-7.2) mg/dl Calcium 8.4 L (8.5-10.1) mg/dl Phosphorus 3.1 (2.5-4.9) mg/dl Total Bilirubin 0.4 (0.2-1) mg/dl AST 10 L (15-37) U/L ALT 19 (12-78) U/L Alkaline Phosphatase 138 H (45-117) U/L Lactate Dehydrogenase (87-241) U/L Troponin I < 0.015 (0-0.045) ng/ml Total Protein 6.8 (6.4-8.2) gm/dl Albumin 3.5 (3.4-5.0) gm/dl Globulin 3.3 (2.5-4.0) gm/dl Albumin/Globulin Ratio 1.1 (0.9-2) Lipase 137 (73-393) U/L Beta-Hydroxybutyric Acd 1.80 (0.2-2.81) mg/dl Urine Color Urine Appearance (Clear) Urine pH (4.5-7.5) Ur Specific [place] (1.000-1.030) Urine Protein (Negative) Urine Glucose (UA) (Negative) Urine Ketones (Negative) Urine Blood (Negative) Urine Nitrite (Negative) Urine Bilirubin (Negative) Urine Urobilinogen (Negative) Ur Leukocyte Esterase (Negative) 07/27/19 07/27/19 07/27/19 Range/Units 15:49 15:49 16:01 WBC (4.8-10.8) K/uL RBC (4.7-6.1) M/uL Hgb (14.0-18.0) g/dL Hct (42-52) % MCV (80-100) fL MCH (25-34) pg MCHC (32-36) g/dL RDW Std Deviation (36.4-46.3) fL RDW Coeff of Leonela (11.5-14.5) % Plt Count (130-400) K/uL MPV (7.4-10.4) fL Neutrophils % (Manual) % Lymphocytes % (Manual) % Neutrophils # (Manual) (1.4-6.5) K/uL Total Absolute Neuts (1.4-6.5) K/uL Lymphocytes # (Manual) (1.2-3.4) K/uL Smudge Cells Ovalocytes Schistocytes PT (9.0-12.0) Seconds INR (0.9-1.1) APTT (21.0-31.0) Seconds PTT Ratio Fibrinogen (184-400) mg/dl Fibrin Degrad Products <10 (<10) mcg/ml VBG pH 7.44 H (7.36-7.41) VBG pCO2 31 L (38-50) mmHg VBG pO2 42 mmHg VBG HCO3 20 mmol/L VBG O2 Saturation 75.8 % VBG Base Excess -3.5 mEq/L Barometric Pressure 726.3 mm/Hg Sodium (136-145) mmol/L Potassium (3.5-5.1) mmol/L Chloride (98-107) mmol/L Carbon Dioxide (21-32) mmol/L Anion Gap (3-11) BUN (7-18) mg/dl Creatinine (0.6-1.4) mg/dl Est Cr Clr Drug Dosing ml/min Est GFR ( Amer) Est GFR (Non-Af Amer) BUN/Creatinine Ratio (10-20) Glucose (70-99) mg/dl Uric Acid (2.6-7.2) mg/dl Calcium (8.5-10.1) mg/dl Phosphorus (2.5-4.9) mg/dl Total Bilirubin (0.2-1) mg/dl AST (15-37) U/L ALT (12-78) U/L Alkaline Phosphatase (45-117) U/L Lactate Dehydrogenase 240 (87-241) U/L Troponin I (0-0.045) ng/ml Total Protein (6.4-8.2) gm/dl Albumin (3.4-5.0) gm/dl Globulin (2.5-4.0) gm/dl Albumin/Globulin Ratio (0.9-2) Lipase (73-393) U/L Beta-Hydroxybutyric Acd (0.2-2.81) mg/dl Urine Color Urine Appearance (Clear) Urine pH (4.5-7.5) Ur Specific [place] (1.000-1.030) Urine Protein (Negative) Urine Glucose (UA) (Negative) Urine Ketones (Negative) Urine Blood (Negative) Urine Nitrite (Negative) Urine Bilirubin (Negative) Urine Urobilinogen (Negative) Ur Leukocyte Esterase (Negative) 07/27/19 Range/Units 16:20 WBC (4.8-10.8) K/uL RBC (4.7-6.1) M/uL Hgb (14.0-18.0) g/dL Hct (42-52) % MCV (80-100) fL MCH (25-34) pg MCHC (32-36) g/dL RDW Std Deviation (36.4-46.3) fL RDW Coeff of Leonela (11.5-14.5) % Plt Count (130-400) K/uL MPV (7.4-10.4) fL Neutrophils % (Manual) % Lymphocytes % (Manual) % Neutrophils # (Manual) (1.4-6.5) K/uL Total Absolute Neuts (1.4-6.5) K/uL Lymphocytes # (Manual) (1.2-3.4) K/uL Smudge Cells Ovalocytes Schistocytes PT (9.0-12.0) Seconds INR (0.9-1.1) APTT (21.0-31.0) Seconds PTT Ratio Fibrinogen (184-400) mg/dl Fibrin Degrad Products (<10) mcg/ml VBG pH (7.36-7.41) VBG pCO2 (38-50) mmHg VBG pO2 mmHg VBG HCO3 mmol/L VBG O2 Saturation % VBG Base Excess mEq/L Barometric Pressure mm/Hg Sodium (136-145) mmol/L Potassium (3.5-5.1) mmol/L Chloride (98-107) mmol/L Carbon Dioxide (21-32) mmol/L Anion Gap (3-11) BUN (7-18) mg/dl Creatinine (0.6-1.4) mg/dl Est Cr Clr Drug Dosing ml/min Est GFR ( Amer) Est GFR (Non-Af Amer) BUN/Creatinine Ratio (10-20) Glucose (70-99) mg/dl Uric Acid (2.6-7.2) mg/dl Calcium (8.5-10.1) mg/dl Phosphorus (2.5-4.9) mg/dl Total Bilirubin (0.2-1) mg/dl AST (15-37) U/L ALT (12-78) U/L Alkaline Phosphatase (45-117) U/L Lactate Dehydrogenase (87-241) U/L Troponin I (0-0.045) ng/ml Total Protein (6.4-8.2) gm/dl Albumin (3.4-5.0) gm/dl Globulin (2.5-4.0) gm/dl Albumin/Globulin Ratio (0.9-2) Lipase (73-393) U/L Beta-Hydroxybutyric Acd (0.2-2.81) mg/dl Urine Color Yellow Urine Appearance Clear (Clear) Urine pH 6.0 (4.5-7.5) Ur Specific [place] 1.011 (1.000-1.030) Urine Protein Negative (Negative) Urine Glucose (UA) 3+ H (Negative) Urine Ketones Negative (Negative) Urine Blood Negative (Negative) Urine Nitrite Negative (Negative) Urine Bilirubin Negative (Negative) Urine Urobilinogen Negative (Negative) Ur Leukocyte Esterase Negative (Negative) ECG Data Attestation: I personally reviewed and interpreted this ECG as follows: Indication: + weakness Rate (beats per minute): 67 ECG Intervals/blocks: + First degree AV block ECG Findings: no PACs and no PVCs Comparison ECG Date: from (02/14/19) Blood Pressure Blood Pressure Findings: Elevated blood pressure Blood Pressure Disposition: further management by hospitalist NEGRO Fleming An order was placed for continuous cardiac monitoring. The monitor shows a rate of 82 with sinus rhythm. The patient is a 63-year-old male with a history of CLL who presented to the emergency department for abnormal laboratory studies. The patient was found to have elevation in his BUN and creatinine as well as hyperkalemia. He was also found to have hyperglycemia. He was treated with IV fluids and insulin in the emergency department. He was reevaluated multiple times. I discussed his case with his primary oncologist. They did recommend that the patient be observed for further management of possible tumor lysis syndrome. The patient was feeling much better on reevaluation. His EKG did not appear to have signs of hyperkalemia. I discussed his case with the on-call [facility] hospitalist group. They have agreed to evaluate the patient in the emergency department for further management and disposition. Impression & Plan Acute hyperkalemia, Acute kidney injury, Hyperglycemia, Tumor lysis syndrome Discharge Plan Visit Data Chief Complaint: Abnormal Labs/Diagnostic Testing Stated Complaint: ABNORMAL LABS SENT BY [facility]ER [facility] ED Provider: Rolo Delacruz Discharge Problem: Acute hyperkalemia, Acute kidney injury, Hyperglycemia, Tumor lysis syndrome Patient Disposition: Being Evaluated by Hospitalist Discharge Instructions Interventions: ED Discharge Assessment Last Done: 07/27/19 19:40 The scribe's documentation has been prepared under my direction and personally reviewed by me in its entirety. I confirm that the note above accurately reflects all work, treatment, procedures, and medical decision making performed by me.
[2019-07-27 16:11] LABS: Base Excess VBG -3.5 mEq/L; Oxygen Saturation VBG 75.8 %; pH VBG 7.44 (7.36-7.41)
[2019-07-27 16:28] LABS: Fibrinogen 260 mg/dl (184-400); INR 1.2 (0.9-1.1); Partial Thromboplastin Ratio 1.3; Prothrombin Time 12.2 Seconds (9.0-12.0)
[2019-07-27 16:45] LABS: Alanine Aminotransferase 19 U/L (12-78); Albumin Globulin Ratio 1.1 (0.9-2); Albumin Level 3.5 gm/dl (3.4-5.0); Alkaline Phosphatase 138 U/L (45-117); Aspartate Aminotransferase 10 U/L (15-37); BUN Creatinine Ratio 29.9 (10-20); Bilirubin,Total 0.4 mg/dl (0.2-1); Blood Urea Nitrogen 56 mg/dl (7-18); Calcium 8.4 mg/dl (8.5-10.1); Carbon Dioxide 20 mmol/L (21-32); Chloride 99 mmol/L (98-107); Est GFR (African American) 43.4; Est GFR (Non-African American) 37.4; Globulin 3.3 gm/dl (2.5-4.0); Glucose 444 mg/dl (70-99); Lipase 137 U/L (73-393); Potassium 5.8 mmol/L (3.5-5.1); Sodium 129 mmol/L (136-145); Total Protein 6.8 gm/dl (6.4-8.2); Troponin I < 0.015 ng/ml (0-0.045); Uric Acid 9.7 mg/dl (2.6-7.2)
[2019-07-27 16:51] LABS: Appearance Urine Clear (Clear); Bilirubin Urine Negative (Negative); Blood Urine Negative (Negative); Color Urine Yellow; Glucose Urine UA 3+ (Negative); Ketones Urine Negative (Negative); Leukocyte Esterase Urine Negative (Negative); Nitrite Urine Negative (Negative); Protein Urine Negative (Negative); Specific Gravity Urine 1.011 (1.000-1.030); Urobilinogen Urine Negative (Negative)
[2019-07-27] MEDS ORDERED: NovoLIN-R INSULIN PER UNIT CHARGE IV STA (16:52)
[2019-07-27] MEDS ORDERED: SODIUM CHLORIDE 0.9% 1000ML 1,000 ML IV ONE (16:52)
[2019-07-27 16:54] LABS: Hematocrit (blood only) 24.4 % (42-52); Hemoglobin 7.9 g/dL (14.0-18.0); Mean Corpuscular Hemoglobin 34.5 pg (25-34); Mean Corpuscular Hgb Conc 32.4 g/dL (32-36); Mean Corpuscular Volume 106.6 fL (80-100); Mean Platelet Volume 9.9 fL (7.4-10.4); Platelet Count 185 K/uL (130-400); RDW Coefficient of Variation 19.6 % (11.5-14.5); RDW Standard Deviation 74.7 fL (36.4-46.3); Red Blood Count 2.29 M/uL (4.7-6.1); White Blood Count 59.25 K/uL (4.8-10.8)
[2019-07-27 16:57] LABS: ANC (manual) 2.01 K/uL (1.4-6.5); Lymphocytes # (manual) 57.24 K/uL (1.2-3.4); Lymphocytes % (manual) 96.6 %; Neutrophils # (manual) 2.01 K/uL (1.4-6.5); Neutrophils % (manual) 3.4 %; Ovalocytes 1+; Schistocytes 1+; Smudge Cells Present
[2019-07-27] MEDS ORDERED: PHARMACY GLYCEMIC MGMT CONSULT STA (17:37)
[2019-07-27] MEDS ORDERED: RASBURICASE 6 MG in SODIUM CHLORIDE 0.9% 50 ML IV ONE (18:00)
[2019-07-27 18:07] LABS: Phosphorus 3.1 mg/dl (2.5-4.9)
--- NOTE | 2019-07-27 18:24 | History & Physical Report ---
Date of Service July 27, 2019 Assessment & Plan (1) Tumor lysis syndrome: - In setting of CLL; Uric acid level 9.7, K level 5.8; LDH level pending, Phos level WNL. - H/o ?neutropenia related to Allopurinol; will hold medication at this time. - Rasburicase 6 mg IV x 1 dose. - Monitor TLS labs q6hr overnight. - IV fluids with 0.45% NS + sodium bicarb 75 mEq at 125 cc/hr. - Oncology and nephrology both consulted, appreciate input. (2) Metabolic acidosis: - In setting of TLS; start 0.45% NS + sodium bicarb 75 mEq at 125 cc/hr. - Monitor BMP q6hr overnight. (3) Acute hyperkalemia: - K level 5.8 - received insulin 6 units IV in the ER. - IV fluid hydration at 125 cc/hr. - Monitor TLS labs q6hr as noted above with next lab at 9 pm this evening. - Admit to telemetry; EKG was negative for T wave changes. (4) Hyponatremia: - Corrected sodium level is 134 in setting of hyperglycemia. - On IV fluids; monitor Na level q6hr overnight. (5) Hyperglycemia: - Steroid induced hyperglycemia; BG >300. - Will consult pharmacy for glucose management -- may require insulin drip. - Gluc checks ac/hs for sliding scale coverage or per protocol for insulin drip. - NPO for insulin drip; if he does not require drip, can order diet overnight. - A1C 7.6 in Jun 2019. (6) DM type 2 (diabetes mellitus, type 2): - As noted above. - On Glimepiride 4 mg daily at home, holding as inpt. (7) Chronic kidney disease: - Creatinine is currently at baseline, 1.8. - Will monitor renal function closely in setting of TLS. - IV fluids at 125 cc/hr. (8) CLL (chronic lymphocytic leukemia): - Follows with Dr. Blair. - Most recently admitted for Venetoclax but could not start therapy due to neutropenia. - Currently receiving Decadron 40 mg PO daily x 4 days (on day 2 of 4, did take dose this morning) - Oncology consulted as inpatient. (9) Anemia: - Hgb is 7.9, baseline ~7-8. - Monitor CBC daily -- transfuse for hgb <7. (10) Hyperlipidemia: - Continue statin as prescribed. (11) Hypothyroid: - Continue Levothyroxine as prescribed. - TSH was 3.0 in August 2018. (12) HTN (hypertension): - Holding home Lisinopril 5 mg daily. (13) Elevated alkaline phosphatase level: - Chronic elevation. DVT ppx: SCDs; Heparin BID. Dispo: PCU/tele for TLS, possible insulin drip. History of Present Illness Chief Complaint: Abnormal Labs Primary Care Provider: Vinnie Crawford MD Mr. Gray is a 63 year old male with past medical history of CLL, HLD, DM Type II, Hypothyroidism, HTN who presented for abnormal outpatient labs. Pt. started Decadron 40 mg PO daily on 07/26 per oncology recommendations for CLL. He had outpatient labs in the cancer center this morning; of note, patient had glucose level 338, Na 131, K 6.1, Uric acid 9.5, WBC 63.37. He was advised to come to the ER for further evaluation. Pt. reports feeling tired overall but is otherwise doing well. He is eating/drinking as tolerated. Has an ostomy related to h/o colon abscess; has had adequate ostomy output. Is urinating frequently, denies hematuria, dysuria, foul smelling urine. Denies chest pain, SOB, URI symptoms, LE edema, abd pain, N/V. Will admit for further evaluation and treatment of TLS & steroid induced hyperglycemia. Allergies Allergy/AdvReac Type Severity Reaction Status Date / Time ibrutinib [From Imbruvica] Allergy Intermediate LOOKED Verified 07/27/19 16:28 LIKE A LEOPARD SPOTTED ALL OVER allopurinol AdvReac Severe Neutropenia Verified 07/27/19 16:28 - severe Home Medications Home Medications Medication Instructions Recorded Confirmed Type coenzyme Q10 [Co Q-10] 100 mg PO QPM 02/17/18 07/27/19 History cyanocobalamin (vitamin B-12) 1,000 mcg PO QPM 02/17/18 07/27/19 History multivitamin 1 tab PO QAM 02/17/18 07/27/19 History glimepiride 2 mg tablet 4 mg PO QAM #60 tab 02/15/19 07/27/19 Rx lisinopril 5 mg tablet 5 mg PO QAM #90 tab 03/15/19 07/27/19 Rx levothyroxine 50 mcg PO 4XWK 06/03/19 07/27/19 History atorvastatin 40 mg tablet 40 mg PO QAM #90 tab 07/15/19 07/27/19 Rx Bacillus coagulans [Digestive 1 cell PO BID 07/27/19 07/27/19 History Advantage] dexamethasone See Rx Instructions .ROUTE .COMPLEX 07/27/19 07/27/19 History hydrocortisone 1 applic TOPICAL BID 07/27/19 07/27/19 History levothyroxine 25 mcg PO 3XWK 07/27/19 07/27/19 History magnesium 0 mg PO QPM 07/27/19 07/27/19 History omega 6-[id number]-itq-fish oil [Fish Oil] 1 cap PO QAM 07/27/19 07/27/19 History Past Med/Surg History Medical History Cataract, left eye Chronic kidney disease (Acute) STAGE 2 CLL (chronic lymphocytic leukemia) Diabetes mellitus, type 2 History of anesthesia reaction WAS AWAKE FOR APORT PLACEMENT, NEEDS MORE ANESTHESIA? Hyperlipidemia Hypertension Hypothyroidism Lower extremity edema Rash Stroke 2015--SPEECH IS SLIGHTLY SLOWER Tinnitus of both ears Surgical History H/O right cataract extraction History of tooth extraction WISDOM TEETH History of vascular access device L CHEST Family History Father Family history of diabetes mellitus TIA (transient ischemic attack) Social History Preferred Language: Kazakh Communication Ability: Effective Strategic Partnership Representative Required: No Beliefs That Will Affect Care: None marital status: Current Living Situation: Alone Current Living Situation Comment: lives with and two children Feels Safe at Home: Yes Smoking Status: Never smoker Second Hand Exposure: No ; Hx Alcohol Use: No Hx Substance Use: No Review of Systems Review of Systems: All systems reviewed & are unremarkable except as noted in HPI & below Constitutional: + fatigue and + weakness; no fever, no chills and no anorexia Respiratory: no cough, no dyspnea and no dyspnea on exertion Cardiovascular: no chest pain, no palpitations and no edema Gastrointestinal: no abdominal pain, no nausea, no vomiting and no constipation Genitourinary: no dysuria, no difficulty urinating, no urinary frequency and no hematuria Musculoskeletal: no back pain and no joint pain Integumentary: no non-healing lesions Physical Exam Physical Exam: General: Resting comfortably HEENT: NC/AT; PERRLA with EOMI; Bartolo conjunctiva, MMM. No erythema of posterior pharynx Neck: Supple and nontender Cardiac: RRR Lungs: CTA bilaterally Abdomen: Bowel normoactive X 4; Nontender to palpation Rectal: Deferred : Deferred Back: NO spinous tenderness Extremities: Warm. No edema present Neuro: No focal weakness Skin: No rash; mediport site without erythema or tenderness to palpation. Results & Data Vital Signs (Past 12 Hours) Vital Signs Temp Pulse Resp BP Pulse Ox 07/27/19 17:22 66 20 139/76 99 07/27/19 17:00 75 17 99 07/27/19 16:42 68 20 96 07/27/19 15:56 70 22 135/67 95 07/27/19 15:32 98 07/27/19 14:29 36.3 C L 99 H 19 144/72 H 99 Laboratory Results 07/27/19 07/27/19 07/27/19 Range/Units 16:20 16:01 15:49 WBC (4.8-10.8) K/uL RBC (4.7-6.1) M/uL Hgb (14.0-18.0) g/dL Hct (42-52) % MCV (80-100) fL MCH (25-34) pg MCHC (32-36) g/dL RDW Std Deviation (36.4-46.3) fL RDW Coeff of Leonela (11.5-14.5) % Plt Count (130-400) K/uL MPV (7.4-10.4) fL Neutrophils % (Manual) % Lymphocytes % (Manual) % Neutrophils # (Manual) (1.4-6.5) K/uL Total Absolute Neuts (1.4-6.5) K/uL Lymphocytes # (Manual) (1.2-3.4) K/uL Smudge Cells Ovalocytes Schistocytes PT (9.0-12.0) Seconds INR (0.9-1.1) APTT (21.0-31.0) Seconds PTT Ratio Fibrinogen (184-400) mg/dl Fibrin Degrad Products <10 (<10) mcg/ml VBG pH (7.36-7.41) VBG pCO2 (38-50) mmHg VBG pO2 mmHg VBG HCO3 mmol/L VBG O2 Saturation % VBG Base Excess mEq/L Barometric Pressure mm/Hg Sodium (136-145) mmol/L Potassium (3.5-5.1) mmol/L Chloride (98-107) mmol/L Carbon Dioxide (21-32) mmol/L Anion Gap (3-11) BUN (7-18) mg/dl Creatinine (0.6-1.4) mg/dl Est Cr Clr Drug Dosing ml/min Est GFR ( Amer) Est GFR (Non-Af Amer) BUN/Creatinine Ratio (10-20) Glucose (70-99) mg/dl Uric Acid (2.6-7.2) mg/dl Calcium (8.5-10.1) mg/dl Phosphorus (2.5-4.9) mg/dl Total Bilirubin (0.2-1) mg/dl AST (15-37) U/L ALT (12-78) U/L Alkaline Phosphatase (45-117) U/L Lactate Dehydrogenase Pending Troponin I (0-0.045) ng/ml Total Protein (6.4-8.2) gm/dl Albumin (3.4-5.0) gm/dl Globulin (2.5-4.0) gm/dl Albumin/Globulin Ratio (0.9-2) Lipase (73-393) U/L Beta-Hydroxybutyric Acd (0.2-2.81) mg/dl Urine Color Yellow Urine Appearance Clear (Clear) Urine pH 6.0 (4.5-7.5) Ur Specific [place] 1.011 (1.000-1.030) Urine Protein Negative (Negative) Urine Glucose (UA) 3+ H (Negative) Urine Ketones Negative (Negative) Urine Blood Negative (Negative) Urine Nitrite Negative (Negative) Urine Bilirubin Negative (Negative) Urine Urobilinogen Negative (Negative) Ur Leukocyte Esterase Negative (Negative) 07/27/19 07/27/19 07/27/19 Range/Units 15:49 15:49 15:49 WBC (4.8-10.8) K/uL RBC (4.7-6.1) M/uL Hgb (14.0-18.0) g/dL Hct (42-52) % MCV (80-100) fL MCH (25-34) pg MCHC (32-36) g/dL RDW Std Deviation (36.4-46.3) fL RDW Coeff of Leonela (11.5-14.5) % Plt Count (130-400) K/uL MPV (7.4-10.4) fL Neutrophils % (Manual) % Lymphocytes % (Manual) % Neutrophils # (Manual) (1.4-6.5) K/uL Total Absolute Neuts (1.4-6.5) K/uL Lymphocytes # (Manual) (1.2-3.4) K/uL Smudge Cells Ovalocytes Schistocytes PT 12.2 H (9.0-12.0) Seconds INR 1.2 H (0.9-1.1) APTT 35.0 H (21.0-31.0) Seconds PTT Ratio 1.3 Fibrinogen 260 (184-400) mg/dl Fibrin Degrad Products (<10) mcg/ml VBG pH 7.44 H (7.36-7.41) VBG pCO2 31 L (38-50) mmHg VBG pO2 42 mmHg VBG HCO3 20 mmol/L VBG O2 Saturation 75.8 % VBG Base Excess -3.5 mEq/L Barometric Pressure 726.3 mm/Hg Sodium 129 L (136-145) mmol/L Potassium 5.8 H (3.5-5.1) mmol/L Chloride 99 (98-107) mmol/L Carbon Dioxide 20 L (21-32) mmol/L Anion Gap 10.0 (3-11) BUN 56 H (7-18) mg/dl Creatinine 1.88 H (0.6-1.4) mg/dl Est Cr Clr Drug Dosing 51.0 ml/min Est GFR ( Amer) 43.4 Est GFR (Non-Af Amer) 37.4 BUN/Creatinine Ratio 29.9 H (10-20) Glucose 444 H* (70-99) mg/dl Uric Acid 9.7 H (2.6-7.2) mg/dl Calcium 8.4 L (8.5-10.1) mg/dl Phosphorus 3.1 (2.5-4.9) mg/dl Total Bilirubin 0.4 (0.2-1) mg/dl AST 10 L (15-37) U/L ALT 19 (12-78) U/L Alkaline Phosphatase 138 H (45-117) U/L Lactate Dehydrogenase Troponin I < 0.015 (0-0.045) ng/ml Total Protein 6.8 (6.4-8.2) gm/dl Albumin 3.5 (3.4-5.0) gm/dl Globulin 3.3 (2.5-4.0) gm/dl Albumin/Globulin Ratio 1.1 (0.9-2) Lipase 137 (73-393) U/L Beta-Hydroxybutyric Acd 1.80 (0.2-2.81) mg/dl Urine Color Urine Appearance (Clear) Urine pH (4.5-7.5) Ur Specific [place] (1.000-1.030) Urine Protein (Negative) Urine Glucose (UA) (Negative) Urine Ketones (Negative) Urine Blood (Negative) Urine Nitrite (Negative) Urine Bilirubin (Negative) Urine Urobilinogen (Negative) Ur Leukocyte Esterase (Negative) 07/27/19 Range/Units 15:49 WBC 59.25 H* (4.8-10.8) K/uL RBC 2.29 L (4.7-6.1) M/uL Hgb 7.9 L (14.0-18.0) g/dL Hct 24.4 L (42-52) % MCV 106.6 H (80-100) fL MCH 34.5 H (25-34) pg MCHC 32.4 (32-36) g/dL RDW Std Deviation 74.7 H (36.4-46.3) fL RDW Coeff of Leonela 19.6 H (11.5-14.5) % Plt Count 185 (130-400) K/uL MPV 9.9 (7.4-10.4) fL Neutrophils % (Manual) 3.4 % Lymphocytes % (Manual) 96.6 % Neutrophils # (Manual) 2.01 (1.4-6.5) K/uL Total Absolute Neuts 2.01 (1.4-6.5) K/uL Lymphocytes # (Manual) 57.24 H (1.2-3.4) K/uL Smudge Cells Present Ovalocytes 1+ Schistocytes 1+ PT (9.0-12.0) Seconds INR (0.9-1.1) APTT (21.0-31.0) Seconds PTT Ratio Fibrinogen (184-400) mg/dl Fibrin Degrad Products (<10) mcg/ml VBG pH (7.36-7.41) VBG pCO2 (38-50) mmHg VBG pO2 mmHg VBG HCO3 mmol/L VBG O2 Saturation % VBG Base Excess mEq/L Barometric Pressure mm/Hg Sodium (136-145) mmol/L Potassium (3.5-5.1) mmol/L Chloride (98-107) mmol/L Carbon Dioxide (21-32) mmol/L Anion Gap (3-11) BUN (7-18) mg/dl Creatinine (0.6-1.4) mg/dl Est Cr Clr Drug Dosing ml/min Est GFR ( Amer) Est GFR (Non-Af Amer) BUN/Creatinine Ratio (10-20) Glucose (70-99) mg/dl Uric Acid (2.6-7.2) mg/dl Calcium (8.5-10.1) mg/dl Phosphorus (2.5-4.9) mg/dl Total Bilirubin (0.2-1) mg/dl AST (15-37) U/L ALT (12-78) U/L Alkaline Phosphatase (45-117) U/L Lactate Dehydrogenase Troponin I (0-0.045) ng/ml Total Protein (6.4-8.2) gm/dl Albumin (3.4-5.0) gm/dl Globulin (2.5-4.0) gm/dl Albumin/Globulin Ratio (0.9-2) Lipase (73-393) U/L Beta-Hydroxybutyric Acd (0.2-2.81) mg/dl Urine Color Urine Appearance (Clear) Urine pH (4.5-7.5) Ur Specific [place] (1.000-1.030) Urine Protein (Negative) Urine Glucose (UA) (Negative) Urine Ketones (Negative) Urine Blood (Negative) Urine Nitrite (Negative) Urine Bilirubin (Negative) Urine Urobilinogen (Negative) Ur Leukocyte Esterase (Negative) Code Status & VTE Plan Code Status FULL CODE VTE Prophylaxis Plan VTE Prophylaxis will be ordered: Yes Supervising Physician Co-Signing Physician Notes Patient seen and examined. Agree with RINA note as above. Patient has history of CLL initially presented with abnormal outpatient labs. He was found to have hyperglycemia as well as hyperkalemia. There was a concern that the patient had tumor lysis syndrome. At this time my evaluation, the patient did not have any significant planes and otherwise felt well although little tired. Exam reveals heart is regular no murmurs. Lungs are clear to auscultation. No soft, nontender, nondistended. The remainder exam is as noted above. Patient was treated for his hyperkalemia with 6 of his insulin emergency room. We will repeat this and treat further as needed. I continue to follow labs as ordered. Rasburicase was also ordered after discussion between the PACotyC and nephrology. They will be consulted for further recommendations PG Care Time/CCT Total # of Minutes Spent Total Time Spent with Patient: Total time spent is greater than 50% in coordination of care (as documented) at patient's floor/unit and/or counseling patient: Coding Level of Care Code 17294 Initial Inpt Care Lvl 3 Diagnoses Tumor lysis syndrome E88.3 Metabolic acidosis E87.2 Acute hyperkalemia E87.5 Hyponatremia E87.1 Hyperglycemia R73.9 DM type 2 (diabetes mellitus, type 2) E11.9 Chronic kidney disease N18.9 Chronic kidney disease stage: unspecified stage CLL (chronic lymphocytic leukemia) C91.90 Anemia D64.9 Anemia type: unspecified type Hyperlipidemia E78.5 Hypothyroid E03.9 HTN (hypertension) I10 Hypertension type: essential hypertension Elevated alkaline phosphatase level R74.8 (1) Anemia Anemia type: unspecified type Qualified Code(s): D64.9 - Anemia, unspecified (2) Chronic kidney disease Chronic kidney disease stage: unspecified stage Qualified Code(s): N18.9 - Chronic kidney disease, unspecified (3) HTN (hypertension) Hypertension type: essential hypertension Qualified Code(s): I10 - Essential (primary) hypertension
[2019-07-27] MEDS ORDERED: PHARMACY GLYCEMIC MGMT CONSULT PRN (19:35)
[2019-07-27] MEDS ORDERED: DEXTROSE 50% 50 ML SYRINGE IV PRN (19:49)
[2019-07-27] MEDS ORDERED: GLUCAGON FOR INJ 1 MG VIAL SQ PRN (19:49)
[2019-07-27] MEDS ORDERED: ACETAMINOPHEN 325 MG TAB PO PRN (19:49)
[2019-07-27] MEDS ORDERED: CARBOHYDRATES FOR HYPOGLYCEMIA PO PRN (19:49)
[2019-07-27] MEDS ORDERED: GLUCOSE 40% GEL 15 GM TUBE PO PRN (19:49)
[2019-07-27] MEDS ORDERED: GLUCOSE 10 TABS/TUBE PO PRN (19:49)
[2019-07-27] MEDS ORDERED: INSULIN HUMAN NPH SC ONE (20:30)
[2019-07-27] MEDS ORDERED: INSULIN PROTOCOL GOAL RANGE ONE (20:38)
[2019-07-27] MEDS ORDERED: SEVERE STRESS LEVEL ONE (20:38)
[2019-07-27] MEDS: SODIUM BICARBONATE 8.4% 75 MEQ in SODIUM CHLORIDE 0.45 % 1,000 ML IV SCH (20:55)
--- NOTE | 2019-07-27 20:57 | Pharmacy Report ---
Glycemic Control Consultation - Date of Service July 27, 2019 - Scope Scope: Glycemic Pharmacist consulted for glycemic control and to write orders per [facility] ED inpatient glycemic control protocol - Objective Weight: 111.9 kg Accuchecks BSG (last 24hrs): 07/27/19 07/27/19 07/27/19 15:49 19:20 19:55 Glucose 444 H* POC Glucose 390 H* 365 H* Laboratory Data (last 24hrs): 07/27/19 15:49 Potassium 5.8 H Carbon Dioxide 20 L Anion Gap 10.0 Creatinine 1.88 H Est Cr Clr Drug Dosing 51.0 Beta-Hydroxybutyric Acd 1.80 HbA1c: Likely un-reliable d/t recent high dose steroids and anemia - Recent Pertinent Medications Outpatient Anti-diabetic Regimen: * glimepiride 4mg PO AM Risk Factors for Insulin Resistance: * Steroids * Diet - Assessment & Plan Assessment & Plan: ASSESSMENT: * 63yo male admitted for Tumor lysis syndrome- pt is receiving high dose dxm 40mg PO daily x 4 days- today is day #2 (pt took RE ETCHER). Received rasburicase in ED * BSG critical hyperglycemia 444mg/dl/390 mg/dl/365mg/dl. * Since pt is insulin naive initiated weight based SQ basal bolus insulin regimen based on weight/high dose steroids. * NPH insulin is used to counteract the hyperglycemic effect of intermediate acting steroids. The rationale for this approach is that the pharmacodynamics profile of NPH mirrors the pharmacodynamics of steroids. NPH should be dosed at the same time that prednisone is given but will give it now since BSGs critical high. * The dose of NPH given is dependent on the steroid dose given * For doses of prednisone 40mg/day equivalent or above NPH dose should be 0.4 units/kg * NPH dosing above is given in addition to patients basal insulin needs * Typically, patients will also need rapid-acting insulin with meals * Since BSG >350 mg/dl will also start IV insulin infusion and stop when BSG <180 AND rate 1.5 units/hr or below PLAN FOR INPATIENT GLYCEMIC CONTROL: * Starting IV insulin infusion per protocol * Goal Range 140 - 180 mg/dl * stop when BSG <180 AND rate 1.5 units/hr or below * Holding outpatient oral diabetes medications * Basal insulin * NPH 40 units (0.4 units/kg) SQ x 1 dose * Bolus insulin * NovoLog per scale ACHS or Q6hrs while NPO * Goal Range: Low 110 mg/dL - High 140 mg/dL * Correction Factor: 15 mg/dL/unit * Nutritional / Prandial insulin per carb ratio of 1 unit per 5 grams CHO consumed * Please note that the plan above was derived based on current level of insulin resistance and hospital stress. These recommendations are appropriate for inpatient admission only. Plan of care upon discharge will need to be reassessed to avoid potential outpatient hypo/hyperglycemia. Thank you.
[2019-07-27] MEDS: HEPARIN SOD 5,000 UNIT/0.5 ML VIAL SQ SCH (20:59)
[2019-07-27] MEDS ORDERED: INSULIN REGULAR 250 UNITS in SODIUM CHLORIDE 0.9% 247.5 ML IV SCH (21:00)
[2019-07-27] MEDS: INSULIN ASPART 100 UNITS/ML 3 ML PEN SC SCH (21:01)
[2019-07-27 21:54] LABS: BUN Creatinine Ratio 32.7 (10-20); Calcium 8.3 mg/dl (8.5-10.1); Creatinine Clr Calc Pharmacy 56.1 ml/min; Est GFR (African American) 48.7; Potassium 5.3 mmol/L (3.5-5.1); Uric Acid 7.3 mg/dl (2.6-7.2)
[2019-07-27 22:06] LABS: Beta-Hydroxybutyrate 1.57 mg/dl (0.2-2.81)
[2019-07-27] MEDS: DC IV INSULIN INFUSION 1 EA DEVI SCH ×2 (22:57→23:43)
[2019-07-28] MEDS: DC IV INSULIN INFUSION 1 EA DEVI SCH ×3 (00:29→03:35)
[2019-07-28 04:04] LABS: BUN Creatinine Ratio 32.7 (10-20); Calcium 8.3 mg/dl (8.5-10.1); Creatinine Clr Calc Pharmacy 59.3 ml/min; Est GFR (African American) 52.3; Est GFR (Non-African American) 45.2; Phosphorus 4.6 mg/dl (2.5-4.9); Potassium 4.6 mmol/L (3.5-5.1); Uric Acid 5.7 mg/dl (2.6-7.2)
[2019-07-28] MEDS: SODIUM BICARBONATE 8.4% 75 MEQ in SODIUM CHLORIDE 0.45 % 1,000 ML IV SCH ×2 (04:48→15:20)
[2019-07-28] MEDS: LEVOTHYROXINE SODIUM 25 MCG TABLET PO SCH (06:20)
[2019-07-28] MEDS: INSULIN ASPART 100 UNITS/ML 3 ML PEN SC SCH ×4 (07:47→20:58)
[2019-07-28] MEDS: HEPARIN SOD 5,000 UNIT/0.5 ML VIAL SQ SCH ×2 (07:48→21:00)
[2019-07-28] MEDS: ATORVASTATIN 40 MG TAB PO SCH (07:49)
[2019-07-28] MEDS: dexAMETHasone 4 MG TAB PO SCH (07:51)
[2019-07-28 08:18] LABS: Hematocrit (blood only) 23.2 % (42-52); Hemoglobin 7.4 g/dL (14.0-18.0); Mean Corpuscular Hemoglobin 33.6 pg (25-34); Mean Corpuscular Hgb Conc 31.9 g/dL (32-36); Mean Corpuscular Volume 105.5 fL (80-100); Mean Platelet Volume 9.7 fL (7.4-10.4); Platelet Count 170 K/uL (130-400); RDW Standard Deviation 75.5 fL (36.4-46.3); White Blood Count 50.56 K/uL (4.8-10.8)
[2019-07-28] MEDS ORDERED: SODIUM CHLORIDE 0.9% 250 ML IV PRN (08:45)
[2019-07-28] MEDS ORDERED: INSULIN HUMAN NPH SC SCH (09:00)
--- NOTE | 2019-07-28 09:32 | Consultation Report ---
DATE OF CONSULTATION: 07/28/2019 REASON FOR CONSULTATION: A 63-year-old gentleman with relapsed CLL in active tumor lysis. HISTORY OF PRESENT ILLNESS: Mr. Gray is a pleasant 63-year-old gentleman well known to [facility], currently under Dr. Blair's care for relapsed CLL. The patient was in the midst of receiving rituximab along with pulse dexamethasone. When he returned to Dr. Blair's office for followup, his labs specifically electrolytes were out of filter and recommended a visit to the Emergency Room. From a clinical perspective, Alphonso reported some fatigue, but otherwise was doing reasonably well. This gentleman was originally diagnosed in 2013 and heavily pretreated. He has received rituximab in combination with Idelalisib in 2014 through 05/2015 and PET scan done at that time had confirmed complete response. He continued maintenance Zydelig and unfortunately had developed anorectal perforation with associated abscess. Ultimately diverting colostomy had to be performed. He continued to ho with disease relapse and was subsequently started on ibrutinib in early 05/2019 and developed a skin rash after a few doses. Dr. Blair is now in the midst of a slowly incorporating venetoclax orally but preliminarily put him on pulsed dexamethasone, which resulted in tumor lysis. His uric acid was approaching 10 at admission and was given rasburicase. Clinically, he feels well. However, Dr. Blair would like him to remain hospitalized until he completes the fourth course of dexamethasone. PAST MEDICAL HISTORY: Again, significant for chronic kidney disease, chronic lymphocytic leukemia stage IV, type 2 diabetes mellitus, hyperlipidemia, hypertension, hypothyroidism, CVA tenderness. 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 MEDICATIONS: Prior to admission include Coenzyme Q10 100 mg p.o. daily, cyanocobalamin 1000 mcg p.o. daily, multivitamin 1 p.o. daily, glyburide 4 mg p.o. daily, lisinopril 5 mg p.o. daily, levothyroxine 50 mcg 4 times weekly, atorvastatin 40 mg p.o. daily, dexamethasone pulsed dose, I believe it is 40 mg daily, levothyroxine 25 mcg 3 times weekly, magnesium dose unknown, omega-3 1 capsule p.o. every day. ALLERGIES: ALLOPURINOL AND IBRUTINIB. REVIEW OF SYSTEMS: CONSTITUTIONAL: He actually feels well. Denies fevers, chills or sweats. His appetite and weight have remained stable. SKIN: No current rashes or lesions. History of skin drug reaction attributable to ibrutinib. HEENT: Negative for headaches, lightheadedness or dizziness. No acute visual or hearing deficits. No sinus symptoms, sore throat or dysphagia. He does have history of tenderness. LYMPH: Positive for CLL by history. CARDIAC: Negative for angina or palpitations. LUNGS: No shortness of breath, dyspnea or orthopnea. No cough or hemoptysis. GASTROINTESTINAL: Negative for abdominal pain, nausea, vomiting, diarrhea or constipation, hematochezia or melena stools. GENITOURINARY: No hematuria, dysuria or urinary incontinence. PSYCHIATRIC: Negative for anxiety, depression or psychoses. ENDOCRINE: Positive for type 2 diabetes mellitus and hypothyroidism. MUSCULOSKELETAL: No arthralgias or myalgias. No focal muscle weakness. NEUROLOGIC: Negative for seizures. Positive for previous CVA. No history of migraine headaches. HEMATOLOGIC: Positive for leukocytosis, macrocytic anemia. PHYSICAL EXAMINATION: GENERAL: A very pleasant 63-year-old gentleman, awake, alert, appropriate, in no acute distress. VITAL SIGNS: Temperature 36.5, pulse 61, respiratory rate 16, blood pressure 100/54. SKIN: Warm, dry, noncyanotic without petechia, rash or ecchymosis. HEENT: Head is atraumatic, normocephalic. Eyes: PERRLA, EOMI. Sclerae nonicteric. No conjunctival injection. Nares are patent without rhinorrhea or discharge. Throat is clear. Tongue is midline. Mucous membranes are moist. NECK: Supple without JVD or thyromegaly. LYMPHATICS: No cervical or supraclavicular palpable nodes. HEART: Regular rate and rhythm. No clicks, rubs, murmurs or gallops. PULMONARY: Clear to auscultation bilaterally. ABDOMEN: Soft, nontender, nondistended, end colostomy noted functional. No rigidity or guarding. EXTREMITIES: Musculoskeletal strength and pulses are equal in all 4 quadrants. No clubbing, cyanosis or edema. NEUROLOGICALLY: He is awake, alert and oriented x3. Cranial nerves II-XII are intact. No gross motor or sensory deficits are noted. LABORATORY DATA: WBC count 50,560, hemoglobin 7.4, platelet count 170,000. Absolute lymphocyte count 57,240. Sodium 141, potassium 4.6, chloride 111, carbon dioxide 26, creatinine 1.61, BUN 53, calcium 8.3, alkaline phosphatase 138, uric acid 5.7. IMPRESSION: 1. Tumor lysis syndrome. 2. Metabolic acidosis. 3. Acute hyperkalemia. 4. Hyponatremia. 5. Hyperglycemia. 6. Hypocalcemia. 7. Elevated uric acid. 8. Chronic lymphocytic leukemia by history. PLAN: Mr. Gray is a pleasant 63-year-old gentleman well known to [facility], currently under Dr. Blair's care with relapsed CLL. Dr. Blair had initiated pulsed dexamethasone. I believe he received rituximab earlier this month with plans of reincorporating Venclexta orally at some point. Unfortunately, developed significant electrolyte anomalies including elevated uric acid necessitating hospitalization. He received rasburicase intravenously which was effectively lowered his uric acid level. His electrolytes are slowly corroborating. Dr. Blair would like to keep him in house until he is done with pulsed dexamethasone. Labs should be checked prior to discharge. Dr. Blair plans to see Mr. Gray in followup within a week or so to plan the next therapeutic step. I have nothing further to add and agree with current medical management otherwise. We will continue to follow Mr. Gray periodically throughout his hospital stay. Thank you very much for allowing me to participate in his care.
[2019-07-28 10:14] LABS: BUN Creatinine Ratio 34.5 (10-20); Calcium 8.3 mg/dl (8.5-10.1); Creatinine Clr Calc Pharmacy 61.6 ml/min; Est GFR (African American) 54.8; Est GFR (Non-African American) 47.3; Potassium 4.6 mmol/L (3.5-5.1)
--- NOTE | 2019-07-28 12:14 | Nephrology Consultation ---
Date of Consultation July 28, 2019 Assessment & Plan (1) Metabolic acidosis: Remains on half-normal saline with 75 mEq of sodium bicarbonate. This is a non gap metabolic acidosis associated with acute hyperuricemia and a KI. Patient is not having significant GI losses by history. His IV fluids have been decreased. Laboratory studies are improving appropriately. I suspect this is in part related to severe hyperglycemia. Thankfully the patient was nonketotic. (2) Hyponatremia: Improving with IV fluid placement. (3) Chronic kidney disease: Creatinine stable at baseline of approximately 1.6 mg/dL. Urine output is appropriate. The patient is euvolemic on exam. His blood pressure is appropriate. Lisinopril has been held. (4) Acute kidney injury: Nonoliguric. Creatinine improved to baseline. Electrolytes acceptable at this time. Continue to document input and output. I would continue to hold his Kai at this time. Repeat metabolic profile tomorrow morning. (5) Tumor lysis syndrome: Uric acid level improved with rasburicase. Is unclear whether not he would tolerate allopurinol. The tumor lysis labs are being monitored. I will continue IV fluids at a rate of 80 mL/hr to encourage slightly positive fluid balance. History of Present Illness Reason for Consultation: TLS, hyperuricemia Requesting Physician: Saul Reddy Attending Physician: Saul Reddy History of Present Illness Mr. Alphonso Gray is a 63-year-old male with relapsed CLL, DMII, hype rtension, hypothyroidism, history of CVA, history of colon abscess requiring colectomy and ostomy, and chronic kidney disease with a baseline creatinine of 1.8 to 2.0 mg/dL. Management of CLL included recent start of pulse dose dexamethasone. The patient was admitted from the [facility] yesterday with laboratory abnormalities including severe hyperglycemia. He was found to have hyperuricemia. Patient has not been on allopurinol due to history of cytopenias that were attributed the medication in the past. On admission his lisinopril was held. The patient was given respiratory a 6 mg x1 dose yesterday. He was started on IV fluids at a rate of 125 mL/hr. He has tolerated therapy well. Serum creatinine has improved from 1.8 mg/dL to 1.6 mg/dL. Electrolytes are appropriate. Patient's urinalysis was bland and acellular. Overall he feels well today. Plan at this time is that he will stay in the hospital to receive his next dose of Decadron. Allergies Allergy/AdvReac Type Severity Reaction Status Date / Time ibrutinib [From Imbruvica] Allergy Intermediate LOOKED Verified 07/27/19 16:28 LIKE A LEOPARD SPOTTED ALL OVER allopurinol AdvReac Severe Neutropenia Verified 07/27/19 16:28 - severe Home Medications Home Medications Medication Instructions Recorded Confirmed Type coenzyme Q10 [Co Q-10] 100 mg PO QPM 02/17/18 07/27/19 History cyanocobalamin (vitamin B-12) 1,000 mcg PO QPM 02/17/18 07/27/19 History multivitamin 1 tab PO QAM 02/17/18 07/27/19 History glimepiride 2 mg tablet 4 mg PO QAM #60 tab 02/15/19 07/27/19 Rx lisinopril 5 mg tablet 5 mg PO QAM #90 tab 03/15/19 07/27/19 Rx levothyroxine 50 mcg PO 4XWK 06/03/19 07/27/19 History atorvastatin 40 mg tablet 40 mg PO QAM #90 tab 07/15/19 07/27/19 Rx Bacillus coagulans [Digestive 1 cell PO BID 07/27/19 07/27/19 History Advantage] dexamethasone See Rx Instructions .ROUTE .COMPLEX 07/27/19 07/27/19 History hydrocortisone 1 applic TOPICAL BID 07/27/19 07/27/19 History levothyroxine 25 mcg PO 3XWK 07/27/19 07/27/19 History magnesium 0 mg PO QPM 07/27/19 07/27/19 History omega 1-vza-lgz-fish oil [Fish Oil] 1 cap PO QAM 07/27/19 07/27/19 History Patient History Medical History Cataract, left eye Chronic kidney disease (Acute) STAGE 2 CLL (chronic lymphocytic leukemia) Diabetes mellitus, type 2 History of anesthesia reaction WAS AWAKE FOR APORT PLACEMENT, NEEDS MORE ANESTHESIA? 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 Beliefs That Will Affect Care: None marital status: Current Living Situation: Spouse and Family Current Living Situation Comment: [facility] Feels Safe at Home: Yes Smoking Status: Never smoker Second Hand Exposure: No ; Hx Alcohol Use: No Hx Substance Use: No Review of Systems Review of Systems: All systems reviewed & are unremarkable except as noted in HPI & below Physical Exam Constitutional: well developed; no acute distress Eyes: no scleral abnormality and no corneal abnormality ENMT: Mouth: no oral mucosal abnormality and oral mucous membranes not dry Neck: normal visual inspection and trachea midline Respiratory: normal respiratory effort Auscultation: lungs clear to auscultation bilaterally Cardiovascular: Rate/Rhythm: regular rate Heart Sounds: normal S1 and normal S2 Extremities: no edema Musculoskeletal: Extremities: no cyanosis and no clubbing Skin: normal turgor; no lesions Neurologic: Motor/Sensory: no tremor and no asterixis Psychiatric: Orientation: alert and oriented x 3 Results & Data Vital Signs (Past 12 Hours) Vital Signs Temp Pulse Pulse Resp BP Pulse Ox 07/28/19 11:36 36.6 C 67 18 120/68 97 07/28/19 07:06 36.5 C 61 16 100/54 L 94 07/28/19 03:29 36.5 C 61 18 102/58 L 96 Laboratory Results Laboratory Results - last 24 hr 07/27/19 07/27/19 07/27/19 15:49 15:49 15:49 WBC 59.25 H* RBC 2.29 L Hgb 7.9 L Hct 24.4 L MCV 106.6 H MCH 34.5 H MCHC 32.4 RDW Std Deviation 74.7 H RDW Coeff of Leonela 19.6 H Plt Count 185 MPV 9.9 Neutrophils % (Manual) 3.4 Lymphocytes % (Manual) 96.6 Neutrophils # (Manual) 2.01 Total Absolute Neuts 2.01 Lymphocytes # (Manual) 57.24 H Smudge Cells Present Ovalocytes 1+ Schistocytes 1+ PT 12.2 H INR 1.2 H APTT 35.0 H PTT Ratio 1.3 Fibrinogen 260 Fibrin Degrad Products VBG pH VBG pCO2 VBG pO2 VBG HCO3 VBG O2 Saturation VBG Base Excess Barometric Pressure Sodium 129 L Potassium 5.8 H Chloride 99 Carbon Dioxide 20 L Anion Gap 10.0 BUN 56 H Creatinine 1.88 H Est Cr Clr Drug Dosing 51.0 Est GFR ( Amer) 43.4 Est GFR (Non-Af Amer) 37.4 BUN/Creatinine Ratio 29.9 H Glucose 444 H* POC Glucose Uric Acid 9.7 H Calcium 8.4 L Phosphorus 3.1 Magnesium Total Bilirubin 0.4 AST 10 L ALT 19 Alkaline Phosphatase 138 H Lactate Dehydrogenase Troponin I < 0.015 Total Protein 6.8 Albumin 3.5 Globulin 3.3 Albumin/Globulin Ratio 1.1 Lipase 137 Beta-Hydroxybutyric Acd 1.80 Urine Color Urine Appearance Urine pH Ur Specific [place] Urine Protein Urine Glucose (UA) Urine Ketones Urine Blood Urine Nitrite Urine Bilirubin Urine Urobilinogen Ur Leukocyte Esterase Blood Type Antibody Screen Crossmatch 07/27/19 07/27/19 07/27/19 15:49 15:49 16:01 WBC RBC Hgb Hct MCV MCH MCHC RDW Std Deviation RDW Coeff of Leonela Plt Count MPV Neutrophils % (Manual) Lymphocytes % (Manual) Neutrophils # (Manual) Total Absolute Neuts Lymphocytes # (Manual) Smudge Cells Ovalocytes Schistocytes PT INR APTT PTT Ratio Fibrinogen Fibrin Degrad Products <10 VBG pH 7.44 H VBG pCO2 31 L VBG pO2 42 VBG HCO3 20 VBG O2 Saturation 75.8 VBG Base Excess -3.5 Barometric Pressure 726.3 Sodium Potassium Chloride Carbon Dioxide Anion Gap BUN Creatinine Est Cr Clr Drug Dosing Est GFR ( Amer) Est GFR (Non-Af Amer) BUN/Creatinine Ratio Glucose POC Glucose Uric Acid Calcium Phosphorus Magnesium Total Bilirubin AST ALT Alkaline Phosphatase Lactate Dehydrogenase 240 Troponin I Total Protein Albumin Globulin Albumin/Globulin Ratio Lipase Beta-Hydroxybutyric Acd Urine Color Urine Appearance Urine pH Ur Specific [place] Urine Protein Urine Glucose (UA) Urine Ketones Urine Blood Urine Nitrite Urine Bilirubin Urine Urobilinogen Ur Leukocyte Esterase Blood Type Antibody Screen Crossmatch 07/27/19 07/27/19 07/27/19 16:20 19:20 19:55 WBC RBC Hgb Hct MCV MCH MCHC RDW Std Deviation RDW Coeff of Leonela Plt Count MPV Neutrophils % (Manual) Lymphocytes % (Manual) Neutrophils # (Manual) Total Absolute Neuts Lymphocytes # (Manual) Smudge Cells Ovalocytes Schistocytes PT INR APTT PTT Ratio Fibrinogen Fibrin Degrad Products VBG pH VBG pCO2 VBG pO2 VBG HCO3 VBG O2 Saturation VBG Base Excess Barometric Pressure Sodium Potassium Chloride Carbon Dioxide Anion Gap BUN Creatinine Est Cr Clr Drug Dosing Est GFR ( Amer) Est GFR (Non-Af Amer) BUN/Creatinine Ratio Glucose POC Glucose 390 H* 365 H* Uric Acid Calcium Phosphorus Magnesium Total Bilirubin AST ALT Alkaline Phosphatase Lactate Dehydrogenase Troponin I Total Protein Albumin Globulin Albumin/Globulin Ratio Lipase Beta-Hydroxybutyric Acd Urine Color Yellow Urine Appearance Clear Urine pH 6.0 Ur Specific [place] 1.011 Urine Protein Negative Urine Glucose (UA) 3+ H Urine Ketones Negative Urine Blood Negative Urine Nitrite Negative Urine Bilirubin Negative Urine Urobilinogen Negative Ur Leukocyte Esterase Negative Blood Type Antibody Screen Crossmatch 07/27/19 07/27/19 07/27/19 21:10 22:15 23:21 WBC RBC Hgb Hct MCV MCH MCHC RDW Std Deviation RDW Coeff of Leonela Plt Count MPV Neutrophils % (Manual) Lymphocytes % (Manual) Neutrophils # (Manual) Total Absolute Neuts Lymphocytes # (Manual) Smudge Cells Ovalocytes Schistocytes PT INR APTT PTT Ratio Fibrinogen Fibrin Degrad Products VBG pH VBG pCO2 VBG pO2 VBG HCO3 VBG O2 Saturation VBG Base Excess Barometric Pressure Sodium 135 L Potassium 5.3 H Chloride 105 Carbon Dioxide 22 Anion Gap 8.0 BUN 56 H Creatinine 1.71 H Est Cr Clr Drug Dosing 56.1 Est GFR ( Amer) 48.7 Est GFR (Non-Af Amer) 42.0 BUN/Creatinine Ratio 32.7 H Glucose 360 H* POC Glucose 357 H* 306 H* Uric Acid 7.3 H Calcium 8.3 L Phosphorus 4.0 Magnesium Total Bilirubin AST ALT Alkaline Phosphatase Lactate Dehydrogenase Troponin I Total Protein Albumin Globulin Albumin/Globulin Ratio Lipase Beta-Hydroxybutyric Acd 1.57 Urine Color Urine Appearance Urine pH Ur Specific [place] Urine Protein Urine Glucose (UA) Urine Ketones Urine Blood Urine Nitrite Urine Bilirubin Urine Urobilinogen Ur Leukocyte Esterase Blood Type Antibody Screen Crossmatch 07/28/19 07/28/19 07/28/19 00:23 02:02 02:59 WBC RBC Hgb Hct MCV MCH MCHC RDW Std Deviation RDW Coeff of Leonela Plt Count MPV Neutrophils % (Manual) Lymphocytes % (Manual) Neutrophils # (Manual) Total Absolute Neuts Lymphocytes # (Manual) Smudge Cells Ovalocytes Schistocytes PT INR APTT PTT Ratio Fibrinogen Fibrin Degrad Products VBG pH VBG pCO2 VBG pO2 VBG HCO3 VBG O2 Saturation VBG Base Excess Barometric Pressure Sodium 141 Potassium 4.6 Chloride 111 H Carbon Dioxide 26 Anion Gap 4.0 BUN 53 H Creatinine 1.61 H Est Cr Clr Drug Dosing 59.3 Est GFR ( Amer) 52.3 Est GFR (Non-Af Amer) 45.2 BUN/Creatinine Ratio 32.7 H Glucose 61 L POC Glucose 197 H 134 H Uric Acid 5.7 Calcium 8.3 L Phosphorus 4.6 Magnesium Total Bilirubin AST ALT Alkaline Phosphatase Lactate Dehydrogenase Troponin I Total Protein Albumin Globulin Albumin/Globulin Ratio Lipase Beta-Hydroxybutyric Acd Urine Color Urine Appearance Urine pH Ur Specific [place] Urine Protein Urine Glucose (UA) Urine Ketones Urine Blood Urine Nitrite Urine Bilirubin Urine Urobilinogen Ur Leukocyte Esterase Blood Type Antibody Screen Crossmatch 07/28/19 07/28/19 07/28/19 03:02 03:28 04:50 WBC RBC Hgb Hct MCV MCH MCHC RDW Std Deviation RDW Coeff of Leonela Plt Count MPV Neutrophils % (Manual) Lymphocytes % (Manual) Neutrophils # (Manual) Total Absolute Neuts Lymphocytes # (Manual) Smudge Cells Ovalocytes Schistocytes PT INR APTT PTT Ratio Fibrinogen Fibrin Degrad Products VBG pH VBG pCO2 VBG pO2 VBG HCO3 VBG O2 Saturation VBG Base Excess Barometric Pressure Sodium Potassium Chloride Carbon Dioxide Anion Gap BUN Creatinine Est Cr Clr Drug Dosing Est GFR ( Amer) Est GFR (Non-Af Amer) BUN/Creatinine Ratio Glucose POC Glucose 69 L* 92 77 Uric Acid Calcium Phosphorus Magnesium Total Bilirubin AST ALT Alkaline Phosphatase Lactate Dehydrogenase Troponin I Total Protein Albumin Globulin Albumin/Globulin Ratio Lipase Beta-Hydroxybutyric Acd Urine Color Urine Appearance Urine pH Ur Specific [place] Urine Protein Urine Glucose (UA) Urine Ketones Urine Blood Urine Nitrite Urine Bilirubin Urine Urobilinogen Ur Leukocyte Esterase Blood Type Antibody Screen Crossmatch 07/28/19 07/28/19 07/28/19 06:14 07:25 07:42 WBC 50.56 H* RBC 2.20 L Hgb 7.4 L Hct 23.2 L MCV 105.5 H MCH 33.6 MCHC 31.9 L RDW Std Deviation 75.5 H RDW Coeff of Leonela 20.0 H Plt Count 170 MPV 9.7 Neutrophils % (Manual) Lymphocytes % (Manual) Neutrophils # (Manual) Total Absolute Neuts Lymphocytes # (Manual) Smudge Cells Ovalocytes Schistocytes PT INR APTT PTT Ratio Fibrinogen Fibrin Degrad Products VBG pH VBG pCO2 VBG pO2 VBG HCO3 VBG O2 Saturation VBG Base Excess Barometric Pressure Sodium Potassium Chloride Carbon Dioxide Anion Gap BUN Creatinine Est Cr Clr Drug Dosing Est GFR ( Amer) Est GFR (Non-Af Amer) BUN/Creatinine Ratio Glucose POC Glucose 113 H 117 H Uric Acid Calcium Phosphorus Magnesium Total Bilirubin AST ALT Alkaline Phosphatase Lactate Dehydrogenase Troponin I Total Protein Albumin Globulin Albumin/Globulin Ratio Lipase Beta-Hydroxybutyric Acd Urine Color Urine Appearance Urine pH Ur Specific [place] Urine Protein Urine Glucose (UA) Urine Ketones Urine Blood Urine Nitrite Urine Bilirubin Urine Urobilinogen Ur Leukocyte Esterase Blood Type Antibody Screen Crossmatch 07/28/19 07/28/19 07/28/19 07:42 07:42 09:35 WBC RBC Hgb Hct MCV MCH MCHC RDW Std Deviation RDW Coeff of Leonlea Plt Count MPV Neutrophils % (Manual) Lymphocytes % (Manual) Neutrophils # (Manual) Total Absolute Neuts Lymphocytes # (Manual) Smudge Cells Ovalocytes Schistocytes PT INR APTT PTT Ratio Fibrinogen Fibrin Degrad Products VBG pH VBG pCO2 VBG pO2 VBG HCO3 VBG O2 Saturation VBG Base Excess Barometric Pressure Sodium 139 Potassium 4.6 Chloride 110 H Carbon Dioxide 26 Anion Gap 3.0 BUN 53 H Creatinine 1.55 H Est Cr Clr Drug Dosing 61.6 Est GFR ( Amer) 54.8 Est GFR (Non-Af Amer) 47.3 BUN/Creatinine Ratio 34.5 H Glucose 148 H POC Glucose Uric Acid Calcium 8.3 L Phosphorus Magnesium 2.2 Total Bilirubin AST ALT Alkaline Phosphatase Lactate Dehydrogenase 196 Troponin I Total Protein Albumin Globulin Albumin/Globulin Ratio Lipase Beta-Hydroxybutyric Acd Urine Color Urine Appearance Urine pH Ur Specific [place] Urine Protein Urine Glucose (UA) Urine Ketones Urine Blood Urine Nitrite Urine Bilirubin Urine Urobilinogen Ur Leukocyte Esterase Blood Type Antibody Screen Crossmatch 07/28/19 07/28/19 09:35 11:33 WBC RBC Hgb Hct MCV MCH MCHC RDW Std Deviation RDW Coeff of Leonela Plt Count MPV Neutrophils % (Manual) Lymphocytes % (Manual) Neutrophils # (Manual) Total Absolute Neuts Lymphocytes # (Manual) Smudge Cells Ovalocytes Schistocytes PT INR APTT PTT Ratio Fibrinogen Fibrin Degrad Products VBG pH VBG pCO2 VBG pO2 VBG HCO3 VBG O2 Saturation VBG Base Excess Barometric Pressure Sodium Potassium Chloride Carbon Dioxide Anion Gap BUN Creatinine Est Cr Clr Drug Dosing Est GFR ( Amer) Est GFR (Non-Af Amer) BUN/Creatinine Ratio Glucose POC Glucose 162 H Uric Acid Calcium Phosphorus Magnesium Total Bilirubin AST ALT Alkaline Phosphatase Lactate Dehydrogenase Troponin I Total Protein Albumin Globulin Albumin/Globulin Ratio Lipase Beta-Hydroxybutyric Acd Urine Color Urine Appearance Urine pH Ur Specific [place] Urine Protein Urine Glucose (UA) Urine Ketones Urine Blood Urine Nitrite Urine Bilirubin Urine Urobilinogen Ur Leukocyte Esterase Blood Type O Negative Antibody Screen NEGATIVE Crossmatch See Detail PG Care Time/CCT Total # of Minutes Spent Total Time Spent with Patient: Total time spent is greater than 50% in coordination of care (as documented) at patient's floor/unit and/or counseling patient: Coding Level of Care Code 10078 Inpt Consult Level 4 Diagnoses Metabolic acidosis E87.2 Hyponatremia E87.1 Chronic kidney disease N18.9 Chronic kidney disease stage: unspecified stage Acute kidney injury N17.9 Tumor lysis syndrome E88.3 (1) Chronic kidney disease Chronic kidney disease stage: unspecified stage Qualified Code(s): N18.9 - Chronic kidney disease, unspecified
--- NOTE | 2019-07-28 13:14 | Pharmacy Report ---
Pharmacy Glycemic Short Note 2 - Date of Service July 28, 2019 - Glycemic Short BSG Results (Last 24 hours): 07/27/19 07/27/19 07/27/19 15:49 19:20 19:55 Glucose 444 H* POC Glucose 390 H* 365 H* 07/27/19 07/27/19 07/27/19 21:10 22:15 23:21 Glucose 360 H* POC Glucose 357 H* 306 H* 07/28/19 07/28/19 07/28/19 00:23 02:02 02:59 Glucose 61 L POC Glucose 197 H 134 H 07/28/19 07/28/19 07/28/19 03:02 03:28 04:50 Glucose POC Glucose 69 L* 92 77 07/28/19 07/28/19 07/28/19 06:14 07:25 09:35 Glucose 148 H POC Glucose 113 H 117 H 07/28/19 11:33 Glucose POC Glucose 162 H OUTPATIENT ANTIDIABETIC REGIMEN: * Glimepiride 4 mg QAM * A1c unreliable d/t steroid and anemia ASSESSMENT: * Patient was transitioned off of insulin infusion ~0300 this AM * Did have hypoglycemic events overnight during transition, will utilize NPH in the morning with dexamethasone and lantus for basal dosed at dinner if additional basal is needed, start conservatively d/t hypoglycemic event overnight * Will continue weight based stress of 3 correction/prandial coverage will adjust as needed PLAN FOR INPATIENT GLYCEMIC CONTROL: * Hold outpatient oral diabetes medications * Basal insulin * Lantus 0-15units per scale with dinner * Bolus insulin * NovoLog per scale ACHS or Q6hrs while NPO * Goal Range: Low 120 mg/dL - High 160 mg/dL * Correction Factor: 15 mg/dL/unit * Nutritional / Prandial insulin per carb ratio of 1 unit per 5 grams CHO consumed
--- NOTE | 2019-07-28 14:49 | Electrocardiogram Report ---
Test Reason : Blood Pressure : / mmHG Vent. Rate : 067 BPM Atrial Rate : 067 BPM P-R Int : 236 ms QRS Dur : 088 ms QT Int : 398 ms P-R-T Axes : 032 012 056 degrees QTc Int : 420 ms Sinus rhythm with 1st degree A-V block Abnormal ECG When compared with ECG of 04-JUL-2019 18:41, AL interval has increased Confirmed by Declan Santamaria ([id number]) on 07/28/2019 2:49:43 PM Referred By: Jose Alejandro Blair Confirmed By:Cale Santamaria
--- NOTE | 2019-07-28 14:59 | Hospitalist Progress Note ---
Date of Service July 28, 2019 Assessment & Plan (1) Tumor lysis syndrome: - In setting of CLL; Uric acid level 9.7, K level 5.8 on admission. - H/o ?neutropenia related to Allopurinol; hold medication at this time. - Rasburicase 6 mg IV x 1 dose on 07/27 with improvement. - Monitor TLS labs daily -- currently stable. - IV fluids with 0.45% NS + sodium bicarb 75 mEq at 80 cc/hr. - Oncology and nephrology both consulted, appreciate input. (2) Metabolic acidosis: - In setting of TLS; start 0.45% NS + sodium bicarb 75 mEq at 80 cc/hr. - Monitor BMP daily -- CO2 improved. (3) Acute hyperkalemia: - K level 5.8 in the ER, improved with IV insulin, Rasburicase for TLS and IV fluids. - IV fluid hydration at 80 cc/hr. - Monitor TLS labs daily. - In NSR on monitor -- will downgrade to med/surg. (4) Hyponatremia: - Now resolved; monitor BMP daily. (5) Hyperglycemia: - Steroid induced hyperglycemia; BG >300 on admission. - Pharmacy following for glycemic management -- did require insulin drip overnight, now d/c'ed. - A1C 7.6 in Jun 2019. (6) DM type 2 (diabetes mellitus, type 2): - As noted above. - On Glimepiride 4 mg daily at home, holding as inpt. (7) Chronic kidney disease: - Creatinine baseline ~1.8. Stage III CKD. - Renal function currently improved to below baseline in setting of IV fluids. (8) CLL (chronic lymphocytic leukemia): - Follows with Dr. Blair. - Most recently admitted for Venetoclax but could not start therapy due to neutropenia. - Currently receiving Decadron 40 mg PO daily x 4 days (on day 3 of 4, last dose on 07/29) - Oncology consulted as inpatient. - WBC remains elevated, was 50.56 this morning. (9) Anemia: - Hgb is 7.4 on AM labs. - Transfuse 2 units pRBCs -- will need O negative irradiated blood, to arrive at 8 pm this evening. - Monitor CBC daily. (10) Hyperlipidemia: - Continue statin as prescribed. (11) Hypothyroid: - Continue Levothyroxine as prescribed. - TSH was 3.0 in August 2018. (12) HTN (hypertension): - Hold home Lisinopril 5 mg daily. (13) Elevated alkaline phosphatase level: - Chronic elevation. DVT ppx: SCDs; Heparin BID. Dispo: Downgrade to med/surg. Discharge to home pending improvement in labs -- likely on vs. Friday. Admission and Anticipated Discharge Date Admission Date: July 27, 2019 Supervising Physician Co-Signing Physician Notes Attending Attestation - Pt seen & examined, chart reviewed, care plan d/w PA Stacy Thakur. I agree w/ the alvarez components of her documentation. 63yo male with CLL - admitted for tumor lysis syndrome, hyperkalemia, etc. In need of PRBCs - I consented him for blood during my visit. He c/o cough - chronic - he is concerned it is his ORALIA inhibitor. exam - gen - NAD, obese mouth - MMM, no thrush heart - RRR, s1 s2 lungs - mild end-exp wheeze, no rales abd - soft NT no HSM ext - no edema cxr this admission noted to be normal labs reviewed Tx 2 units PRBCs today. Cont IVF for tumor lysis. Cont steroids. Consider ARB in miguel of ORALIA. Other plans per Ms Thakur. Saul Reddy MD Subjective Pt. feels well overall -- he has generalized fatigue. TLS improved. Hgb decreased, will transfuse 2 units pRBCs. Review of Systems Review of Systems: All systems reviewed & are unremarkable except as noted in HPI & below Constitutional: + fatigue and + weakness; no fever and no chills Respiratory: no cough, no dyspnea and no dyspnea on exertion Cardiovascular: no chest pain, no palpitations and no edema Gastrointestinal: no abdominal pain, no nausea and no constipation Genitourinary: no difficulty urinating Physical Exam Physical Exam: General: Resting comfortably HEENT: NC/AT; PERRLA with EOMI; [place] conjunctiva, MMM. No erythema of posterior pharynx Neck: Supple and nontender Cardiac: RRR Lungs: CTA bilaterally Abdomen: Bowel normoactive X 4; Nontender to palpation Extremities: Warm. No edema present Neuro: No focal weakness Skin: No rash; mediport site without erythema. Results & Data ([facility]) Vital Signs (Past 12 Hours) Vital Signs Temp Pulse Pulse Resp BP Pulse Ox 07/28/19 11:36 36.6 C 67 18 120/68 97 07/28/19 07:06 36.5 C 61 16 100/54 L 94 07/28/19 03:29 36.5 C 61 18 102/58 L 96 Laboratory Results 07/28/19 07/28/19 07/28/19 Range/Units 11:33 09:35 09:35 WBC (4.8-10.8) K/uL RBC (4.7-6.1) M/uL Hgb (14.0-18.0) g/dL Hct (42-52) % MCV (80-100) fL MCH (25-34) pg MCHC (32-36) g/dL RDW Std Deviation (36.4-46.3) fL RDW Coeff of Leonela (11.5-14.5) % Plt Count (130-400) K/uL MPV (7.4-10.4) fL Neutrophils % (Manual) % Lymphocytes % (Manual) % Neutrophils # (Manual) (1.4-6.5) K/uL Total Absolute Neuts (1.4-6.5) K/uL Lymphocytes # (Manual) (1.2-3.4) K/uL Smudge Cells Ovalocytes Schistocytes PT (9.0-12.0) Seconds INR (0.9-1.1) APTT (21.0-31.0) Seconds PTT Ratio Fibrinogen (184-400) mg/dl Fibrin Degrad Products (<10) mcg/ml VBG pH (7.36-7.41) VBG pCO2 (38-50) mmHg VBG pO2 mmHg VBG HCO3 mmol/L VBG O2 Saturation % VBG Base Excess mEq/L Barometric Pressure mm/Hg Sodium 139 (136-145) mmol/L Potassium 4.6 (3.5-5.1) mmol/L Chloride 110 H (98-107) mmol/L Carbon Dioxide 26 (21-32) mmol/L Anion Gap 3.0 (3-11) BUN 53 H (7-18) mg/dl Creatinine 1.55 H (0.6-1.4) mg/dl Est Cr Clr Drug Dosing 61.6 ml/min Est GFR ( Amer) 54.8 Est GFR (Non-Af Amer) 47.3 BUN/Creatinine Ratio 34.5 H (10-20) Glucose 148 H (70-99) mg/dl POC Glucose 162 H (70-99) mg/dl Uric Acid (2.6-7.2) mg/dl Calcium 8.3 L (8.5-10.1) mg/dl Phosphorus (2.5-4.9) mg/dl Magnesium (1.8-2.4) mg/dl Total Bilirubin (0.2-1) mg/dl AST (15-37) U/L ALT (12-78) U/L Alkaline Phosphatase (45-117) U/L Lactate Dehydrogenase (87-241) U/L Troponin I (0-0.045) ng/ml Total Protein (6.4-8.2) gm/dl Albumin (3.4-5.0) gm/dl Globulin (2.5-4.0) gm/dl Albumin/Globulin Ratio (0.9-2) Lipase (73-393) U/L Beta-Hydroxybutyric Acd (0.2-2.81) mg/dl Urine Color Urine Appearance (Clear) Urine pH (4.5-7.5) Ur Specific [place] (1.000-1.030) Urine Protein (Negative) Urine Glucose (UA) (Negative) Urine Ketones (Negative) Urine Blood (Negative) Urine Nitrite (Negative) Urine Bilirubin (Negative) Urine Urobilinogen (Negative) Ur Leukocyte Esterase (Negative) Blood Type O Negative Antibody Screen NEGATIVE Crossmatch See Detail 07/28/19 07/28/19 07/28/19 Range/Units 07:42 07:42 07:42 WBC 50.56 H* (4.8-10.8) K/uL RBC 2.20 L (4.7-6.1) M/uL Hgb 7.4 L (14.0-18.0) g/dL Hct 23.2 L (42-52) % MCV 105.5 H (80-100) fL MCH 33.6 (25-34) pg MCHC 31.9 L (32-36) g/dL RDW Std Deviation 75.5 H (36.4-46.3) fL RDW Coeff of Leonela 20.0 H (11.5-14.5) % Plt Count 170 (130-400) K/uL MPV 9.7 (7.4-10.4) fL Neutrophils % (Manual) % Lymphocytes % (Manual) % Neutrophils # (Manual) (1.4-6.5) K/uL Total Absolute Neuts (1.4-6.5) K/uL Lymphocytes # (Manual) (1.2-3.4) K/uL Smudge Cells Ovalocytes Schistocytes PT (9.0-12.0) Seconds INR (0.9-1.1) APTT (21.0-31.0) Seconds PTT Ratio Fibrinogen (184-400) mg/dl Fibrin Degrad Products (<10) mcg/ml VBG pH (7.36-7.41) VBG pCO2 (38-50) mmHg VBG pO2 mmHg VBG HCO3 mmol/L VBG O2 Saturation % VBG Base Excess mEq/L Barometric Pressure mm/Hg Sodium (136-145) mmol/L Potassium (3.5-5.1) mmol/L Chloride (98-107) mmol/L Carbon Dioxide (21-32) mmol/L Anion Gap (3-11) BUN (7-18) mg/dl Creatinine (0.6-1.4) mg/dl Est Cr Clr Drug Dosing ml/min Est GFR ( Amer) Est GFR (Non-Af Amer) BUN/Creatinine Ratio (10-20) Glucose (70-99) mg/dl POC Glucose (70-99) mg/dl Uric Acid (2.6-7.2) mg/dl Calcium (8.5-10.1) mg/dl Phosphorus (2.5-4.9) mg/dl Magnesium 2.2 (1.8-2.4) mg/dl Total Bilirubin (0.2-1) mg/dl AST (15-37) U/L ALT (12-78) U/L Alkaline Phosphatase (45-117) U/L Lactate Dehydrogenase 196 (87-241) U/L Troponin I (0-0.045) ng/ml Total Protein (6.4-8.2) gm/dl Albumin (3.4-5.0) gm/dl Globulin (2.5-4.0) gm/dl Albumin/Globulin Ratio (0.9-2) Lipase (73-393) U/L Beta-Hydroxybutyric Acd (0.2-2.81) mg/dl Urine Color Urine Appearance (Clear) Urine pH (4.5-7.5) Ur Specific [place] (1.000-1.030) Urine Protein (Negative) Urine Glucose (UA) (Negative) Urine Ketones (Negative) Urine Blood (Negative) Urine Nitrite (Negative) Urine Bilirubin (Negative) Urine Urobilinogen (Negative) Ur Leukocyte Esterase (Negative) Blood Type Antibody Screen Crossmatch 07/28/19 07/28/19 07/28/19 Range/Units 07:25 06:14 04:50 WBC (4.8-10.8) K/uL RBC (4.7-6.1) M/uL Hgb (14.0-18.0) g/dL Hct (42-52) % MCV (80-100) fL MCH (25-34) pg MCHC (32-36) g/dL RDW Std Deviation (36.4-46.3) fL RDW Coeff of Leonela (11.5-14.5) % Plt Count (130-400) K/uL MPV (7.4-10.4) fL Neutrophils % (Manual) % Lymphocytes % (Manual) % Neutrophils # (Manual) (1.4-6.5) K/uL Total Absolute Neuts (1.4-6.5) K/uL Lymphocytes # (Manual) (1.2-3.4) K/uL Smudge Cells Ovalocytes Schistocytes PT (9.0-12.0) Seconds INR (0.9-1.1) APTT (21.0-31.0) Seconds PTT Ratio Fibrinogen (184-400) mg/dl Fibrin Degrad Products (<10) mcg/ml VBG pH (7.36-7.41) VBG pCO2 (38-50) mmHg VBG pO2 mmHg VBG HCO3 mmol/L VBG O2 Saturation % VBG Base Excess mEq/L Barometric Pressure mm/Hg Sodium (136-145) mmol/L Potassium (3.5-5.1) mmol/L Chloride (98-107) mmol/L Carbon Dioxide (21-32) mmol/L Anion Gap (3-11) BUN (7-18) mg/dl Creatinine (0.6-1.4) mg/dl Est Cr Clr Drug Dosing ml/min Est GFR ( Amer) Est GFR (Non-Af Amer) BUN/Creatinine Ratio (10-20) Glucose (70-99) mg/dl POC Glucose 117 H 113 H 77 (70-99) mg/dl Uric Acid (2.6-7.2) mg/dl Calcium (8.5-10.1) mg/dl Phosphorus (2.5-4.9) mg/dl Magnesium (1.8-2.4) mg/dl Total Bilirubin (0.2-1) mg/dl AST (15-37) U/L ALT (12-78) U/L Alkaline Phosphatase (45-117) U/L Lactate Dehydrogenase (87-241) U/L Troponin I (0-0.045) ng/ml Total Protein (6.4-8.2) gm/dl Albumin (3.4-5.0) gm/dl Globulin (2.5-4.0) gm/dl Albumin/Globulin Ratio (0.9-2) Lipase (73-393) U/L Beta-Hydroxybutyric Acd (0.2-2.81) mg/dl Urine Color Urine Appearance (Clear) Urine pH (4.5-7.5) Ur Specific [place] (1.000-1.030) Urine Protein (Negative) Urine Glucose (UA) (Negative) Urine Ketones (Negative) Urine Blood (Negative) Urine Nitrite (Negative) Urine Bilirubin (Negative) Urine Urobilinogen (Negative) Ur Leukocyte Esterase (Negative) Blood Type Antibody Screen Crossmatch 07/28/19 07/28/19 07/28/19 Range/Units 03:28 03:02 02:59 WBC (4.8-10.8) K/uL RBC (4.7-6.1) M/uL Hgb (14.0-18.0) g/dL Hct (42-52) % MCV (80-100) fL MCH (25-34) pg MCHC (32-36) g/dL RDW Std Deviation (36.4-46.3) fL RDW Coeff of Leonela (11.5-14.5) % Plt Count (130-400) K/uL MPV (7.4-10.4) fL Neutrophils % (Manual) % Lymphocytes % (Manual) % Neutrophils # (Manual) (1.4-6.5) K/uL Total Absolute Neuts (1.4-6.5) K/uL Lymphocytes # (Manual) (1.2-3.4) K/uL Smudge Cells Ovalocytes Schistocytes PT (9.0-12.0) Seconds INR (0.9-1.1) APTT (21.0-31.0) Seconds PTT Ratio Fibrinogen (184-400) mg/dl Fibrin Degrad Products (<10) mcg/ml VBG pH (7.36-7.41) VBG pCO2 (38-50) mmHg VBG pO2 mmHg VBG HCO3 mmol/L VBG O2 Saturation % VBG Base Excess mEq/L Barometric Pressure mm/Hg Sodium 141 (136-145) mmol/L Potassium 4.6 (3.5-5.1) mmol/L Chloride 111 H (98-107) mmol/L Carbon Dioxide 26 (21-32) mmol/L Anion Gap 4.0 (3-11) BUN 53 H (7-18) mg/dl Creatinine 1.61 H (0.6-1.4) mg/dl Est Cr Clr Drug Dosing 59.3 ml/min Est GFR ( Amer) 52.3 Est GFR (Non-Af Amer) 45.2 BUN/Creatinine Ratio 32.7 H (10-20) Glucose 61 L (70-99) mg/dl POC Glucose 92 69 L* (70-99) mg/dl Uric Acid 5.7 (2.6-7.2) mg/dl Calcium 8.3 L (8.5-10.1) mg/dl Phosphorus 4.6 (2.5-4.9) mg/dl Magnesium (1.8-2.4) mg/dl Total Bilirubin (0.2-1) mg/dl AST (15-37) U/L ALT (12-78) U/L Alkaline Phosphatase (45-117) U/L Lactate Dehydrogenase (87-241) U/L Troponin I (0-0.045) ng/ml Total Protein (6.4-8.2) gm/dl Albumin (3.4-5.0) gm/dl Globulin (2.5-4.0) gm/dl Albumin/Globulin Ratio (0.9-2) Lipase (73-393) U/L Beta-Hydroxybutyric Acd (0.2-2.81) mg/dl Urine Color Urine Appearance (Clear) Urine pH (4.5-7.5) Ur Specific [place] (1.000-1.030) Urine Protein (Negative) Urine Glucose (UA) (Negative) Urine Ketones (Negative) Urine Blood (Negative) Urine Nitrite (Negative) Urine Bilirubin (Negative) Urine Urobilinogen (Negative) Ur Leukocyte Esterase (Negative) Blood Type Antibody Screen Crossmatch 07/28/19 07/28/19 07/27/19 Range/Units 02:02 00:23 23:21 WBC (4.8-10.8) K/uL RBC (4.7-6.1) M/uL Hgb (14.0-18.0) g/dL Hct (42-52) % MCV (80-100) fL MCH (25-34) pg MCHC (32-36) g/dL RDW Std Deviation (36.4-46.3) fL RDW Coeff of Leonela (11.5-14.5) % Plt Count (130-400) K/uL MPV (7.4-10.4) fL Neutrophils % (Manual) % Lymphocytes % (Manual) % Neutrophils # (Manual) (1.4-6.5) K/uL Total Absolute Neuts (1.4-6.5) K/uL Lymphocytes # (Manual) (1.2-3.4) K/uL Smudge Cells Ovalocytes Schistocytes PT (9.0-12.0) Seconds INR (0.9-1.1) APTT (21.0-31.0) Seconds PTT Ratio Fibrinogen (184-400) mg/dl Fibrin Degrad Products (<10) mcg/ml VBG pH (7.36-7.41) VBG pCO2 (38-50) mmHg VBG pO2 mmHg VBG HCO3 mmol/L VBG O2 Saturation % VBG Base Excess mEq/L Barometric Pressure mm/Hg Sodium (136-145) mmol/L Potassium (3.5-5.1) mmol/L Chloride (98-107) mmol/L Carbon Dioxide (21-32) mmol/L Anion Gap (3-11) BUN (7-18) mg/dl Creatinine (0.6-1.4) mg/dl Est Cr Clr Drug Dosing ml/min Est GFR ( Amer) Est GFR (Non-Af Amer) BUN/Creatinine Ratio (10-20) Glucose (70-99) mg/dl POC Glucose 134 H 197 H 306 H* (70-99) mg/dl Uric Acid (2.6-7.2) mg/dl Calcium (8.5-10.1) mg/dl Phosphorus (2.5-4.9) mg/dl Magnesium (1.8-2.4) mg/dl Total Bilirubin (0.2-1) mg/dl AST (15-37) U/L ALT (12-78) U/L Alkaline Phosphatase (45-117) U/L Lactate Dehydrogenase (87-241) U/L Troponin I (0-0.045) ng/ml Total Protein (6.4-8.2) gm/dl Albumin (3.4-5.0) gm/dl Globulin (2.5-4.0) gm/dl Albumin/Globulin Ratio (0.9-2) Lipase (73-393) U/L Beta-Hydroxybutyric Acd (0.2-2.81) mg/dl Urine Color Urine Appearance (Clear) Urine pH (4.5-7.5) Ur Specific [place] (1.000-1.030) Urine Protein (Negative) Urine Glucose (UA) (Negative) Urine Ketones (Negative) Urine Blood (Negative) Urine Nitrite (Negative) Urine Bilirubin (Negative) Urine Urobilinogen (Negative) Ur Leukocyte Esterase (Negative) Blood Type Antibody Screen Crossmatch 07/27/19 07/27/19 07/27/19 Range/Units 22:15 21:10 19:55 WBC (4.8-10.8) K/uL RBC (4.7-6.1) M/uL Hgb (14.0-18.0) g/dL Hct (42-52) % MCV (80-100) fL MCH (25-34) pg MCHC (32-36) g/dL RDW Std Deviation (36.4-46.3) fL RDW Coeff of Leonela (11.5-14.5) % Plt Count (130-400) K/uL MPV (7.4-10.4) fL Neutrophils % (Manual) % Lymphocytes % (Manual) % Neutrophils # (Manual) (1.4-6.5) K/uL Total Absolute Neuts (1.4-6.5) K/uL Lymphocytes # (Manual) (1.2-3.4) K/uL Smudge Cells Ovalocytes Schistocytes PT (9.0-12.0) Seconds INR (0.9-1.1) APTT (21.0-31.0) Seconds PTT Ratio Fibrinogen (184-400) mg/dl Fibrin Degrad Products (<10) mcg/ml VBG pH (7.36-7.41) VBG pCO2 (38-50) mmHg VBG pO2 mmHg VBG HCO3 mmol/L VBG O2 Saturation % VBG Base Excess mEq/L Barometric Pressure mm/Hg Sodium 135 L (136-145) mmol/L Potassium 5.3 H (3.5-5.1) mmol/L Chloride 105 (98-107) mmol/L Carbon Dioxide 22 (21-32) mmol/L Anion Gap 8.0 (3-11) BUN 56 H (7-18) mg/dl Creatinine 1.71 H (0.6-1.4) mg/dl Est Cr Clr Drug Dosing 56.1 ml/min Est GFR ( Amer) 48.7 Est GFR (Non-Af Amer) 42.0 BUN/Creatinine Ratio 32.7 H (10-20) Glucose 360 H* (70-99) mg/dl POC Glucose 357 H* 365 H* (70-99) mg/dl Uric Acid 7.3 H (2.6-7.2) mg/dl Calcium 8.3 L (8.5-10.1) mg/dl Phosphorus 4.0 (2.5-4.9) mg/dl Magnesium (1.8-2.4) mg/dl Total Bilirubin (0.2-1) mg/dl AST (15-37) U/L ALT (12-78) U/L Alkaline Phosphatase (45-117) U/L Lactate Dehydrogenase (87-241) U/L Troponin I (0-0.045) ng/ml Total Protein (6.4-8.2) gm/dl Albumin (3.4-5.0) gm/dl Globulin (2.5-4.0) gm/dl Albumin/Globulin Ratio (0.9-2) Lipase (73-393) U/L Beta-Hydroxybutyric Acd 1.57 (0.2-2.81) mg/dl Urine Color Urine Appearance (Clear) Urine pH (4.5-7.5) Ur Specific [place] (1.000-1.030) Urine Protein (Negative) Urine Glucose (UA) (Negative) Urine Ketones (Negative) Urine Blood (Negative) Urine Nitrite (Negative) Urine Bilirubin (Negative) Urine Urobilinogen (Negative) Ur Leukocyte Esterase (Negative) Blood Type Antibody Screen Crossmatch 07/27/19 07/27/19 07/27/19 Range/Units 19:20 16:20 16:01 WBC (4.8-10.8) K/uL RBC (4.7-6.1) M/uL Hgb (14.0-18.0) g/dL Hct (42-52) % MCV (80-100) fL MCH (25-34) pg MCHC (32-36) g/dL RDW Std Deviation (36.4-46.3) fL RDW Coeff of Leonela (11.5-14.5) % Plt Count (130-400) K/uL MPV (7.4-10.4) fL Neutrophils % (Manual) % Lymphocytes % (Manual) % Neutrophils # (Manual) (1.4-6.5) K/uL Total Absolute Neuts (1.4-6.5) K/uL Lymphocytes # (Manual) (1.2-3.4) K/uL Smudge Cells Ovalocytes Schistocytes PT (9.0-12.0) Seconds INR (0.9-1.1) APTT (21.0-31.0) Seconds PTT Ratio Fibrinogen (184-400) mg/dl Fibrin Degrad Products <10 (<10) mcg/ml VBG pH (7.36-7.41) VBG pCO2 (38-50) mmHg VBG pO2 mmHg VBG HCO3 mmol/L VBG O2 Saturation % VBG Base Excess mEq/L Barometric Pressure mm/Hg Sodium (136-145) mmol/L Potassium (3.5-5.1) mmol/L Chloride (98-107) mmol/L Carbon Dioxide (21-32) mmol/L Anion Gap (3-11) BUN (7-18) mg/dl Creatinine (0.6-1.4) mg/dl Est Cr Clr Drug Dosing ml/min Est GFR ( Amer) Est GFR (Non-Af Amer) BUN/Creatinine Ratio (10-20) Glucose (70-99) mg/dl POC Glucose 390 H* (70-99) mg/dl Uric Acid (2.6-7.2) mg/dl Calcium (8.5-10.1) mg/dl Phosphorus (2.5-4.9) mg/dl Magnesium (1.8-2.4) mg/dl Total Bilirubin (0.2-1) mg/dl AST (15-37) U/L ALT (12-78) U/L Alkaline Phosphatase (45-117) U/L Lactate Dehydrogenase (87-241) U/L Troponin I (0-0.045) ng/ml Total Protein (6.4-8.2) gm/dl Albumin (3.4-5.0) gm/dl Globulin (2.5-4.0) gm/dl Albumin/Globulin Ratio (0.9-2) Lipase (73-393) U/L Beta-Hydroxybutyric Acd (0.2-2.81) mg/dl Urine Color Yellow Urine Appearance Clear (Clear) Urine pH 6.0 (4.5-7.5) Ur Specific [place] 1.011 (1.000-1.030) Urine Protein Negative (Negative) Urine Glucose (UA) 3+ H (Negative) Urine Ketones Negative (Negative) Urine Blood Negative (Negative) Urine Nitrite Negative (Negative) Urine Bilirubin Negative (Negative) Urine Urobilinogen Negative (Negative) Ur Leukocyte Esterase Negative (Negative) Blood Type Antibody Screen Crossmatch 07/27/19 07/27/19 07/27/19 Range/Units 15:49 15:49 15:49 WBC (4.8-10.8) K/uL RBC (4.7-6.1) M/uL Hgb (14.0-18.0) g/dL Hct (42-52) % MCV (80-100) fL MCH (25-34) pg MCHC (32-36) g/dL RDW Std Deviation (36.4-46.3) fL RDW Coeff of Leonela (11.5-14.5) % Plt Count (130-400) K/uL MPV (7.4-10.4) fL Neutrophils % (Manual) % Lymphocytes % (Manual) % Neutrophils # (Manual) (1.4-6.5) K/uL Total Absolute Neuts (1.4-6.5) K/uL Lymphocytes # (Manual) (1.2-3.4) K/uL Smudge Cells Ovalocytes Schistocytes PT (9.0-12.0) Seconds INR (0.9-1.1) APTT (21.0-31.0) Seconds PTT Ratio Fibrinogen (184-400) mg/dl Fibrin Degrad Products (<10) mcg/ml VBG pH 7.44 H (7.36-7.41) VBG pCO2 31 L (38-50) mmHg VBG pO2 42 mmHg VBG HCO3 20 mmol/L VBG O2 Saturation 75.8 % VBG Base Excess -3.5 mEq/L Barometric Pressure 726.3 mm/Hg Sodium 129 L (136-145) mmol/L Potassium 5.8 H (3.5-5.1) mmol/L Chloride 99 (98-107) mmol/L Carbon Dioxide 20 L (21-32) mmol/L Anion Gap 10.0 (3-11) BUN 56 H (7-18) mg/dl Creatinine 1.88 H (0.6-1.4) mg/dl Est Cr Clr Drug Dosing 51.0 ml/min Est GFR ( Amer) 43.4 Est GFR (Non-Af Amer) 37.4 BUN/Creatinine Ratio 29.9 H (10-20) Glucose 444 H* (70-99) mg/dl POC Glucose (70-99) mg/dl Uric Acid 9.7 H (2.6-7.2) mg/dl Calcium 8.4 L (8.5-10.1) mg/dl Phosphorus 3.1 (2.5-4.9) mg/dl Magnesium (1.8-2.4) mg/dl Total Bilirubin 0.4 (0.2-1) mg/dl AST 10 L (15-37) U/L ALT 19 (12-78) U/L Alkaline Phosphatase 138 H (45-117) U/L Lactate Dehydrogenase 240 (87-241) U/L Troponin I < 0.015 (0-0.045) ng/ml Total Protein 6.8 (6.4-8.2) gm/dl Albumin 3.5 (3.4-5.0) gm/dl Globulin 3.3 (2.5-4.0) gm/dl Albumin/Globulin Ratio 1.1 (0.9-2) Lipase 137 (73-393) U/L Beta-Hydroxybutyric Acd 1.80 (0.2-2.81) mg/dl Urine Color Urine Appearance (Clear) Urine pH (4.5-7.5) Ur Specific [place] (1.000-1.030) Urine Protein (Negative) Urine Glucose (UA) (Negative) Urine Ketones (Negative) Urine Blood (Negative) Urine Nitrite (Negative) Urine Bilirubin (Negative) Urine Urobilinogen (Negative) Ur Leukocyte Esterase (Negative) Blood Type Antibody Screen Crossmatch 07/27/19 07/27/19 Range/Units 15:49 15:49 WBC 59.25 H* (4.8-10.8) K/uL RBC 2.29 L (4.7-6.1) M/uL Hgb 7.9 L (14.0-18.0) g/dL Hct 24.4 L (42-52) % MCV 106.6 H (80-100) fL MCH 34.5 H (25-34) pg MCHC 32.4 (32-36) g/dL RDW Std Deviation 74.7 H (36.4-46.3) fL RDW Coeff of Leonela 19.6 H (11.5-14.5) % Plt Count 185 (130-400) K/uL MPV 9.9 (7.4-10.4) fL Neutrophils % (Manual) 3.4 % Lymphocytes % (Manual) 96.6 % Neutrophils # (Manual) 2.01 (1.4-6.5) K/uL Total Absolute Neuts 2.01 (1.4-6.5) K/uL Lymphocytes # (Manual) 57.24 H (1.2-3.4) K/uL Smudge Cells Present Ovalocytes 1+ Schistocytes 1+ PT 12.2 H (9.0-12.0) Seconds INR 1.2 H (0.9-1.1) APTT 35.0 H (21.0-31.0) Seconds PTT Ratio 1.3 Fibrinogen 260 (184-400) mg/dl Fibrin Degrad Products (<10) mcg/ml VBG pH (7.36-7.41) VBG pCO2 (38-50) mmHg VBG pO2 mmHg VBG HCO3 mmol/L VBG O2 Saturation % VBG Base Excess mEq/L Barometric Pressure mm/Hg Sodium (136-145) mmol/L Potassium (3.5-5.1) mmol/L Chloride (98-107) mmol/L Carbon Dioxide (21-32) mmol/L Anion Gap (3-11) BUN (7-18) mg/dl Creatinine (0.6-1.4) mg/dl Est Cr Clr Drug Dosing ml/min Est GFR ( Amer) Est GFR (Non-Af Amer) BUN/Creatinine Ratio (10-20) Glucose (70-99) mg/dl POC Glucose (70-99) mg/dl Uric Acid (2.6-7.2) mg/dl Calcium (8.5-10.1) mg/dl Phosphorus (2.5-4.9) mg/dl Magnesium (1.8-2.4) mg/dl Total Bilirubin (0.2-1) mg/dl AST (15-37) U/L ALT (12-78) U/L Alkaline Phosphatase (45-117) U/L Lactate Dehydrogenase (87-241) U/L Troponin I (0-0.045) ng/ml Total Protein (6.4-8.2) gm/dl Albumin (3.4-5.0) gm/dl Globulin (2.5-4.0) gm/dl Albumin/Globulin Ratio (0.9-2) Lipase (73-393) U/L Beta-Hydroxybutyric Acd (0.2-2.81) mg/dl Urine Color Urine Appearance (Clear) Urine pH (4.5-7.5) Ur Specific [place] (1.000-1.030) Urine Protein (Negative) Urine Glucose (UA) (Negative) Urine Ketones (Negative) Urine Blood (Negative) Urine Nitrite (Negative) Urine Bilirubin (Negative) Urine Urobilinogen (Negative) Ur Leukocyte Esterase (Negative) Blood Type Antibody Screen Crossmatch PG Care Time/CCT Total # of Minutes Spent Total Time Spent with Patient: Total time spent is greater than 50% in coordination of care (as documented) at patient's floor/unit and/or counseling patient: Coding Level of Care Code 69871 Subseq Hosp Care Lvl 3 Diagnoses Tumor lysis syndrome E88.3 Metabolic acidosis E87.2 Acute hyperkalemia E87.5 Hyponatremia E87.1 Hyperglycemia R73.9 DM type 2 (diabetes mellitus, type 2) E11.9 Chronic kidney disease N18.9 Chronic kidney disease stage: unspecified stage CLL (chronic lymphocytic leukemia) C91.90 Anemia D64.9 Anemia type: unspecified type Hyperlipidemia E78.5 Hypothyroid E03.9 HTN (hypertension) I10 Hypertension type: essential hypertension Elevated alkaline phosphatase level R74.8 (1) Anemia Anemia type: unspecified type Qualified Code(s): D64.9 - Anemia, unspecified (2) Chronic kidney disease Chronic kidney disease stage: unspecified stage Qualified Code(s): N18.9 - Chronic kidney disease, unspecified (3) HTN (hypertension) Hypertension type: essential hypertension Qualified Code(s): I10 - Essential (primary) hypertension
[2019-07-28] MEDS: INSULIN GLARGINE SOLOSTAR 100 UNITS/ML 3 ML PEN SC SCH (17:44)
[2019-07-29 06:06] LABS: Hematocrit (blood only) 27.2 % (42-52); Hemoglobin 9.1 g/dL (14.0-18.0); Mean Corpuscular Hgb Conc 33.5 g/dL (32-36); Mean Corpuscular Volume 101.5 fL (80-100); Mean Platelet Volume 9.6 fL (7.4-10.4); Platelet Count 130 K/uL (130-400); Red Blood Count 2.68 M/uL (4.7-6.1); White Blood Count 36.41 K/uL (4.8-10.8)
[2019-07-29] MEDS ORDERED: LEVOTHYROXINE SODIUM 50 MCG TABLET PO SCH (06:30)
[2019-07-29 06:41] LABS: BUN Creatinine Ratio 34.7 (10-20); Creatinine Clr Calc Pharmacy 67.1 ml/min; Est GFR (African American) 61.4; Magnesium 2.3 mg/dl (1.8-2.4); Potassium 4.2 mmol/L (3.5-5.1); Uric Acid 5.3 mg/dl (2.6-7.2)
[2019-07-29 06:54] LABS: Phosphorus 5.6 mg/dl (2.5-4.9)
[2019-07-29] MEDS ORDERED: INSULIN HUMAN NPH SC SCH (09:00)
--- NOTE | 2019-07-29 09:05 | Progress Note ---
DATE: 07/29/2019 DIAGNOSES: 1. Tumor lysis syndrome. 2. Metabolic acidosis. 3. Hyperkalemia. 4. Hyponatremia. 5. Hypocalcemia. 6. Elevated uric acid. 7. Relapsed chronic lymphocytic leukemia. SUBJECTIVE: Mr. Gray is pleasant 63-year-old gentleman well known to [facility], currently under Dr. Blair's care for relapsed CLL. Today, will kiran completion of pulse dexamethasone. His electrolytes for the most part have stabilized. I spoke to Dr. Blair yesterday and he would like Mr. Gray to remain another 24 hours to ensure electrolytes and uric acid remains stable before discharge. I believe the plan moving forward is to incorporate Venetoclax orally as salvage. I believe Mr. Gray has followup next week. He has no further complaints this morning. Nursing reports no overnight difficulties. OBJECTIVE: GENERAL: A very pleasant 63-year-old gentleman in no acute distress. VITAL SIGNS: Temperature 36.4, pulse 54, respiratory rate 18, blood pressure 143/73. SKIN: Without rash or lesion. HEENT: Oral mucosa without erythema or ulceration. HEART: Regular rate and rhythm. No clicks, rubs, murmurs or gallops. LUNGS: Clear to auscultation bilaterally. ABDOMEN: Soft, nontender, nondistended. EXTREMITIES: No clubbing, cyanosis or edema. NEUROLOGIC: Grossly intact. LABORATORY DATA: WBC count 36,410, hemoglobin 9.1, platelet count 130,000. Sodium 141, potassium 4.2, chloride 110, carbon dioxide 25, creatinine 1.41, BUN 49, uric acid 5.3, phosphorus remains elevated at 5.6, calcium 8. IMPRESSION: 1. Tumor lysis syndrome. 2. Metabolic acidosis. 3. Hyperkalemia. 4. Hypocalcemia. 5. Elevated uric acid. 6. Relapsed chronic lymphocytic leukemia. PLAN: Mr. Gray will complete his pulse dexamethasone today. I see no reason why he cannot be discharged in next 24 hours as long as his electrolytes, specifically uric acid remains stable. Dr. Blair has salvage treatment plans underway and will see Mr. Gray in the office in the next week or two. Mr. Gray has no specific complaints this morning and agree with current medical management otherwise. I have nothing further to add and will officially sign off today. Will advise Dr. Blair of his progress.
--- NOTE | 2019-07-29 09:34 | Nephrology Progress Note ---
Date of Service July 29, 2019 Assessment & Plan (1) Chronic kidney disease: Kidney function remains stable. Tolerating IVF well. Electrolytes have normalized. Euvolemic. Appropriate urine output. Blood pressure acceptable. Lisinopril may be restarted as needed. Follow up in the nephrology clinic within a few weeks of discharge. (2) Tumor lysis syndrome: Uric acid level improved. Tolerating IVF well. No changes at this time. Nephrology will follow peripherally. Please call with questions or concerns. Subjective No acute events overnight. Alphonso feels well this morning. Adenopathy improving. No fevers or chills. No urinary complaints. No edema. Appetite is good. Review of Systems Review of Systems: All systems reviewed & are unremarkable except as noted in HPI & below Physical Exam Constitutional: well developed; no acute distress Eyes: no scleral abnormality and no corneal abnormality ENMT: Mouth: no oral mucosal abnormality and oral mucous membranes not dry Neck: normal visual inspection and trachea midline Respiratory: normal respiratory effort Auscultation: lungs clear to auscultation bilaterally Cardiovascular: Rate/Rhythm: regular rate Heart Sounds: normal S1 and normal S2 Extremities: no edema Musculoskeletal: Extremities: no cyanosis and no clubbing Skin: normal turgor; no lesions Neurologic: Motor/Sensory: no tremor and no asterixis Psychiatric: Orientation: alert and oriented x 3 Results & Data Vital Signs (Past 12 Hours) Vital Signs Temp Pulse Pulse Resp BP BP Pulse Ox 07/29/19 06:40 36.4 C L 54 L 18 142/73 H 96 07/29/19 04:08 36.3 C L 56 L 17 132/70 94 07/29/19 02:15 36.3 C L 60 17 135/66 95 07/29/19 01:10 36.4 C L 55 L 16 129/69 97 07/29/19 00:45 36.4 C L 56 L 17 143/77 H 97 07/28/19 23:55 36.5 C 61 17 137/78 97 07/28/19 23:34 36.4 C L 60 18 127/73 93 07/28/19 21:49 36.6 C 59 L 20 129/71 97 Laboratory Results Laboratory Results - last 24 hr 07/28/19 07/28/19 07/28/19 09:35 09:35 11:33 WBC RBC Hgb Hct MCV MCH MCHC RDW Std Deviation RDW Coeff of Leonela Plt Count MPV Sodium 139 Potassium 4.6 Chloride 110 H Carbon Dioxide 26 Anion Gap 3.0 BUN 53 H Creatinine 1.55 H Est Cr Clr Drug Dosing 61.6 Est GFR ( Amer) 54.8 Est GFR (Non-Af Amer) 47.3 BUN/Creatinine Ratio 34.5 H Glucose 148 H POC Glucose 162 H Uric Acid Calcium 8.3 L Phosphorus Magnesium Blood Type O Negative Antibody Screen NEGATIVE Crossmatch See Detail 07/28/19 07/28/19 07/29/19 16:52 20:16 05:52 WBC 36.41 H* D RBC 2.68 L Hgb 9.1 L Hct 27.2 L MCV 101.5 H MCH 34.0 MCHC 33.5 RDW Std Deviation 75.0 H RDW Coeff of Leonela 21.0 H Plt Count 130 MPV 9.6 Sodium Potassium Chloride Carbon Dioxide Anion Gap BUN Creatinine Est Cr Clr Drug Dosing Est GFR ( Amer) Est GFR (Non-Af Amer) BUN/Creatinine Ratio Glucose POC Glucose 191 H 291 H Uric Acid Calcium Phosphorus Magnesium Blood Type Antibody Screen Crossmatch 07/29/19 07/29/19 05:52 08:29 WBC RBC Hgb Hct MCV MCH MCHC RDW Std Deviation RDW Coeff of Leonela Plt Count MPV Sodium 141 Potassium 4.2 Chloride 110 H Carbon Dioxide 25 Anion Gap 6.0 BUN 49 H Creatinine 1.41 H Est Cr Clr Drug Dosing 67.1 Est GFR ( Amer) 61.4 Est GFR (Non-Af Amer) 53.0 BUN/Creatinine Ratio 34.7 H Glucose 167 H POC Glucose 133 H Uric Acid 5.3 Calcium 8.0 L Phosphorus 5.6 H D Magnesium 2.3 Blood Type Antibody Screen Crossmatch PG Care Time/CCT Total # of Minutes Spent Total Time Spent with Patient: Total time spent is greater than 50% in coordination of care (as documented) at patient's floor/unit and/or counseling patient: Coding Level of Care Code 17322 Subseq Hosp Care Lvl 3 Diagnoses Chronic kidney disease N18.9 Chronic kidney disease stage: unspecified stage Tumor lysis syndrome E88.3 (1) Chronic kidney disease Chronic kidney disease stage: unspecified stage Qualified Code(s): N18.9 - Chronic kidney disease, unspecified
[2019-07-29] MEDS: INSULIN ASPART 100 UNITS/ML 3 ML PEN SC SCH ×4 (10:21→20:13)
[2019-07-29] MEDS: ATORVASTATIN 40 MG TAB PO SCH (10:22)
[2019-07-29] MEDS: dexAMETHasone 4 MG TAB PO SCH (10:22)
[2019-07-29] MEDS: HEPARIN SOD 5,000 UNIT/0.5 ML VIAL SQ SCH ×2 (10:22→20:13)
[2019-07-29] MEDS: HEPARIN 100 UNIT/ML 5ML FLUSH FLUSH PRN (11:27)
--- NOTE | 2019-07-29 11:54 | Pharmacy Report ---
Pharmacy Glycemic Short Note 2 - Date of Service July 29, 2019 - Glycemic Short BSG Results (Last 24 hours): 07/28/19 07/28/19 07/29/19 16:52 20:16 05:52 Glucose 167 H POC Glucose 191 H 291 H 07/29/19 07/29/19 08:29 11:42 Glucose POC Glucose 133 H 137 H OUTPATIENT ANTIDIABETIC REGIMEN: * Glimepiride 4 mg QAM * A1c unreliable d/t steroid and anemia ASSESSMENT: 07/29: * Patient received 67 units of SQ insulin yesterday (35 units of basal and 32 units of bolus). BSGs ranged from 117-291 mg/dL. * Fasting BSG of 133 mg/dL is at goal. Continue Lantus dose per scale tonight. May be able to d/c basal insulin tomorrow. * Post prandial BSGs rise throughout the day due to steroid induced hyperglycemia from dexamethasone. Novolog carb ratio has been tightened and NPH dose increased 25%. Today is the last dose of dexamethasone. Insulin will be decreased accordingly on 07/30 AM. 07/28: * Patient was transitioned off of insulin infusion ~0300 this AM * Did have hypoglycemic events overnight during transition, will utilize NPH in the morning with dexamethasone and lantus for basal dosed at dinner if additional basal is needed, start conservatively d/t hypoglycemic event overnight * Will continue weight based stress of 3 correction/prandial coverage will adjust as needed PLAN FOR INPATIENT GLYCEMIC CONTROL: * Hold outpatient oral diabetes medications * Basal insulin * Lantus 0-15 units per scale with dinner * NPH 25 units SQ qAM (to be given with DXM) * Bolus insulin * NovoLog per scale ACHS or Q6hrs while NPO * Goal Range: Low 120 mg/dL - High 160 mg/dL * Correction Factor: 15 mg/dL/unit * Nutritional / Prandial insulin per carb ratio of 1 unit per 4 grams CHO consumed
[2019-07-29] MEDS: SODIUM BICARBONATE 8.4% 75 MEQ in SODIUM CHLORIDE 0.45 % 1,000 ML IV SCH ×2 (12:09→12:27)
[2019-07-29] MEDS: INSULIN GLARGINE SOLOSTAR 100 UNITS/ML 3 ML PEN SC SCH (18:12)
--- NOTE | 2019-07-29 18:28 | Hospitalist Progress Note ---
Date of Service July 29, 2019 Assessment & Plan (1) Tumor lysis syndrome: - In setting of CLL; Uric acid level 9.7, K level 5.8 on admission - H/o ?neutropenia related to Allopurinol; hold medication at this time. - Rasburicase 6 mg IV x 1 dose on 07/27 with improvement. - Monitor TLS labs daily -- currently stable. - IV fluids with 0.45% NS + sodium bicarb 75 mEq at 80 cc/hr. - can continue today and stop tomorrow - Oncology and nephrology both consulted, appreciate input. (2) Metabolic acidosis: - Non-gap metabolic acidosis - In setting of TLS; start 0.45% NS + sodium bicarb 75 mEq at 80 cc/hr. - Monitor BMP daily -- CO2 improved. (3) Acute hyperkalemia: - RESOLVED - K level 5.8 in the ER, improved with IV insulin, Rasburicase for TLS and IV fluids. - IV fluid hydration at 80 cc/hr. - Monitor TLS labs daily. (4) Hyponatremia: - Now resolved; monitor BMP daily. (5) Hyperglycemia: - Steroid induced hyperglycemia; BG >300 on admission. - Pharmacy following for glycemic management -- did require insulin drip initially now D/Cd - A1C 7.6 in Jun 2019. ' (6) DM type 2 (diabetes mellitus, type 2): - As noted above. - On Glimepiride 4 mg daily at home, holding as inpt. - Glucose control should improve now off steroids (7) Chronic kidney disease: - Creatinine baseline ~1.6-1.8. Stage III CKD. - Renal function currently improved to below baseline in setting of IV fluids. (8) CLL (chronic lymphocytic leukemia): - Follows with Dr. Blair. - Most recently admitted for Venetoclax but could not start therapy due to neutropenia. - Currently receiving Decadron 40 mg PO daily x 4 days - last dose given today - Oncology consulted as inpatient. - plan to F/U in office to discuss possible salvage therapy with Venetoclax - WBC remains elevated but improved - now down to 36.41 (9) Anemia: - Transfuse 2 units pRBCs - Hgb currently at 9.1 - Monitor CBC daily. (10) Hyperlipidemia: - Continue statin as prescribed. (11) Hypothyroid: - Continue Levothyroxine as prescribed. - TSH was 3.0 in August 2018. (12) HTN (hypertension): - Hold home Lisinopril 5 mg daily - can resume on D/C (13) Elevated alkaline phosphatase level: - Chronic elevation. DVT ppx: SCDs; Heparin BID. Dispo: Pending labs - D/C home tomorrow with outpatient Oncology F/U Admission and Anticipated Discharge Date Admission Date: July 27, 2019 Anticipated date of discharge: 07/30/19 Supervising Physician Co-Signing Physician Notes Attending Attestation - Chart reviewed, care plan d/w ERAN Bragg. I agree w/ the alvarez components of her documentation. 63yo male with CLL - admitted for tumor lysis syndrome, hyperkalemia, etc. Hyperkalemia resolved. Being treated for tumor lysis syndrome. s/p 2 units PRBCs yesterday for anemia. Labs today acceptable. Cont steroids. Saul Reddy MD Subjective Reports feeling well today. Tolerating diet. Tolerated transfusion overnight. Glucose improving. Received last dose of Dexamethasone today. Verbalizes no new complaints Review of Systems Constitutional: + fatigue; no fever and no chills Respiratory: no cough and no dyspnea Cardiovascular: no chest pain, no palpitations, no lightheadedness and no edema Gastrointestinal: no abdominal pain, no nausea and no vomiting + colostomy Genitourinary: no dysuria Integumentary: no rash Physical Exam Constitutional: WD/WN, vitals as above Eyes: + anicteric sclerae ENMT: Ears: no hearing impairment Neck: trachea midline Respiratory: normal respiratory effort, lungs clear to auscultation Cardiovascular: RRR, no murmur, no edema Chest (Breasts): Chest: + vascular access device or port (no erythema or drainage) Gastrointestinal (Abdomen): Inspection/Auscultation: normal bowel sounds Percussion/Palpation: abdomen soft; abdomen nontender + colostomy Musculoskeletal: Head/Neck/Chest: normocephalic and head atraumatic Skin: no rashes, warm and dry Neurologic: moves all extremities Psychiatric: A+Ox3, euthymic affect Results & Data (MN) Vital Signs (Past 12 Hours) Vital Signs Temp Pulse Resp BP Pulse Ox 07/29/19 15:19 36.8 C 64 18 97/60 L 94 07/29/19 11:27 36.5 C 57 L 18 158/81 H 96 07/29/19 06:40 36.4 C L 54 L 18 142/73 H 96 PG Care Time/CCT Total # of Minutes Spent Total Time Spent with Patient: Total time spent is greater than 50% in coordination of care (as documented) at patient's floor/unit and/or counseling patient: Coding Level of Care Code 36846 Subseq Hosp Care Lvl 3 Diagnoses Tumor lysis syndrome E88.3 Metabolic acidosis E87.2 Acute hyperkalemia E87.5 Hyponatremia E87.1 Hyperglycemia R73.9 DM type 2 (diabetes mellitus, type 2) E11.9 Chronic kidney disease N18.9 Chronic kidney disease stage: unspecified stage CLL (chronic lymphocytic leukemia) C91.90 Anemia D64.9 Anemia type: unspecified type Hyperlipidemia E78.5 Hypothyroid E03.9 HTN (hypertension) I10 Hypertension type: essential hypertension Elevated alkaline phosphatase level R74.8 (1) Anemia Anemia type: unspecified type Qualified Code(s): D64.9 - Anemia, unspecified (2) Chronic kidney disease Chronic kidney disease stage: unspecified stage Qualified Code(s): N18.9 - Chronic kidney disease, unspecified (3) HTN (hypertension) Hypertension type: essential hypertension Qualified Code(s): I10 - Essential (primary) hypertension
[2019-07-30] MEDS: SODIUM BICARBONATE 8.4% 75 MEQ in SODIUM CHLORIDE 0.45 % 1,000 ML IV SCH ×2 (01:20→01:54)
[2019-07-30] MEDS: LEVOTHYROXINE SODIUM 25 MCG TABLET PO SCH (06:12)
[2019-07-30 06:13] LABS: Hematocrit (blood only) 27.8 % (42-52); Mean Corpuscular Hemoglobin 33.3 pg (25-34); Mean Corpuscular Hgb Conc 32.4 g/dL (32-36); Mean Platelet Volume 10.1 fL (7.4-10.4); Platelet Count 140 K/uL (130-400); RDW Standard Deviation 76.6 fL (36.4-46.3); White Blood Count 36.11 K/uL (4.8-10.8)
[2019-07-30 06:44] LABS: Calcium 7.7 mg/dl (8.5-10.1); Creatinine Clr Calc Pharmacy 71.2 ml/min; Est GFR (African American) 65.9; Est GFR (Non-African American) 56.9; Uric Acid 6.7 mg/dl (2.6-7.2)
[2019-07-30] MEDS ORDERED: INSULIN ASPART 100 UNITS/ML 3 ML PEN SC SCH (07:30)
[2019-07-30] MEDS: HEPARIN SOD 5,000 UNIT/0.5 ML VIAL SQ SCH (07:59)
[2019-07-30] MEDS: ATORVASTATIN 40 MG TAB PO SCH (07:59)
[2019-07-30] MEDS: HEPARIN 100 UNIT/ML 5ML FLUSH FLUSH PRN ×2 (09:02→11:34)
--- NOTE | 2019-07-30 10:48 | Pharmacy Report ---
Pharmacy Glycemic Short Note 2 - Date of Service July 30, 2019 - Glycemic Short BSG Results (Last 24 hours): 07/29/19 07/29/19 07/29/19 11:42 16:18 17:49 Glucose POC Glucose 137 H 168 H 189 H 07/29/19 07/30/19 07/30/19 20:01 05:18 08:03 Glucose 104 H POC Glucose 211 H 106 H OUTPATIENT ANTIDIABETIC REGIMEN: * Glimepiride 4 mg QAM * A1c unreliable d/t steroid and anemia ASSESSMENT: 07/30: * Patient received 67 units of SQ insulin yesterday (40 units of basal and 27 units of bolus) with decent glycemic control. * Insulin needs should drastically decrease today since last dose of dexamethasone was 07/29 am. * Novolog CF and CR were significantly loosened this morning. Will continue Lantus dose per scale at reduced doses. 07/29: * Patient received 67 units of SQ insulin yesterday (35 units of basal and 32 units of bolus). BSGs ranged from 117-291 mg/dL. * Fasting BSG of 133 mg/dL is at goal. Continue Lantus dose per scale tonight. May be able to d/c basal insulin tomorrow. * Post prandial BSGs rise throughout the day due to steroid induced hyperglycemia from dexamethasone. Novolog carb ratio has been tightened and NPH dose increased 25%. Today is the last dose of dexamethasone. Insulin will be decreased accordingly on 07/30 AM. 07/28: * Patient was transitioned off of insulin infusion ~0300 this AM * Did have hypoglycemic events overnight during transition, will utilize NPH in the morning with dexamethasone and lantus for basal dosed at dinner if additional basal is needed, start conservatively d/t hypoglycemic event overnight * Will continue weight based stress of 3 correction/prandial coverage will adjust as needed PLAN FOR INPATIENT GLYCEMIC CONTROL: * Hold outpatient oral diabetes medications * Basal insulin - decrease * Lantus 0-10 units per scale with dinner * Discontinue NPH * Bolus insulin - loosen * NovoLog per scale ACHS or Q6hrs while NPO * Goal Range: Low 120 mg/dL - High 160 mg/dL * Correction Factor: 20 mg/dL/unit * Nutritional / Prandial insulin per carb ratio of 1 unit per 8 grams CHO consumed
--- NOTE | 2019-07-30 19:24 | Discharge Summary ---
Date of Service July 30, 2019 Admission HPI Per Admitting Provider Mr. Gray is a 63 year old male with past medical history of CLL, HLD, DM Type II, Hypothyroidism, HTN who presented for abnormal outpatient labs. Pt. started Decadron 40 mg PO daily on 07/26 per oncology recommendations for CLL. He had outpatient labs in the cancer center this morning; of note, patient had glucose level 338, Na 131, K 6.1, Uric acid 9.5, WBC 63.37. He was advised to come to the ER for further evaluation. Pt. reports feeling tired overall but is otherwise doing well. He is eating/drinking as tolerated. Has an ostomy related to h/o colon abscess; has had adequate ostomy output. Is urinating frequently, denies hematuria, dysuria, foul smelling urine. Denies chest pain, SOB, URI symptoms, LE edema, abd pain, N/V. Will admit for further evaluation and treatment of TLS & steroid induced hyp erglycemia. Principal Diagnosis Tumor Lysis Syndrome Discharge Exam Constitutional WD/WN, vitals as above Eyes + anicteric sclerae ENMT Ears: no hearing impairment Neck trachea midline Respiratory normal respiratory effort, lungs clear to auscultation Cardiovascular RRR, no murmur, no edema Chest (Breasts) Chest: + vascular access device or port (no erythema or drainage) Gastrointestinal (Abdomen) Inspection/Auscultation: normal bowel sounds Percussion/Palpation: abdomen soft; abdomen nontender Musculoskeletal Head/Neck/Chest: normocephalic and head atraumatic Skin no rashes, warm and dry Neurologic moves all extremities Psychiatric A+Ox3, euthymic affect Discharge Data Allergies Allergy/AdvReac Type Severity Reaction Status Date / Time ibrutinib [From Imbruvica] Allergy Intermediate LOOKED Verified 07/27/19 16:28 LIKE A LEOPARD SPOTTED ALL OVER allopurinol AdvReac Severe Neutropenia Verified 07/27/19 16:28 - severe Consultations 07/27/19 17:01 ED Decision to Admit Stat 07/27/19 19:49 Consult Case Management - Discharge Planning Routine Consult Nephrology Routine Consult Oncology Routine Hospital Course (1) Tumor lysis syndrome: - In setting of CLL; Uric acid level 9.7, K level 5.8 on admission - now W NL - H/o ?neutropenia related to Allopurinol; hold medication at this time. - Rasburicase 6 mg IV x 1 dose on 07/27 with improvement. - IV fluids with 0.45% NS + sodium bicarb 75 mEq at 80 cc/hr given during admission - Remained hospitalized to complete his pulse Dexamethasone treatment - Oncology and nephrology both consulted - both plan on outpatient F/U (2) Metabolic acidosis: - Non-gap metabolic acidosis - In setting of TLS; started 0.45% NS + sodium bicarb 75 mEq at 80 cc/hr - Monitor BMP daily -- CO2 improved. (3) Acute hyperkalemia: - RESOLVED - K level 5.8 in the ER, improved with IV insulin, Rasburicase for TLS and IV fluids. (4) Hyponatremia: - Now resolved; monitor BMP daily. (5) Hyperglycemia: - Steroid induced hyperglycemia; BG >300 on admission. - Pharmacy following for glycemic management inpatient - will continue home medication on D/C (6) DM type 2 (diabetes mellitus, type 2): - As noted above. - On Glimepiride 4 mg daily at home - Glucose control should improve now off steroids (7) Chronic kidney disease: - Creatinine baseline ~1.6-1.8. Stage III CKD. - Renal function currently improved to below baseline in setting of IV fluids. - Cr 1.33 (8) CLL (chronic lymphocytic leukemia): - Follows with Dr. Blair. - Most recently admitted for Venetoclax but could not start therapy due to neutropenia. - Finished pulse Dexamethasone - Oncology consulted as inpatient. - plan to F/U in office to discuss possible salvage therapy with Venetoclax - WBC remains elevated but improved - now down to 36.41 (9) Anemia: - Transfused 2 units pRBCs - Hgb currently at 9.0 (10) Hyperlipidemia: - Continue statin as prescribed. (11) Hypothyroid: - Continue Levothyroxine as prescribed. - TSH was 3.0 in August 2018. (12) HTN (hypertension): - Continue Lisinopril 5 mg daily (13) Elevated alkaline phosphatase level: - Chronic elevation. DVT ppx: SCDs; Heparin BID. Dispo: D/C home with outpatient Oncology and Nephrology F/U Total Time Total Time Spent Total Time Spent (In Minutes): Greater than 30 minutes Discharge Plan Discharge Items Patient Disposition: Home - Self-Care Reason For Visit: HYPERKALEMIA,HYPERGLYCEMIA Discharge Diagnosis: Tumor Lysis Syndrome Activity: Resume your previous activity Non-emergency contact: Primary Care Provider Call non-emergency contact if: you have any medication questions, your symptoms worsen and you have a fever Follow-up/Referrals: Vinnie Crawford MD [Primary Care Provider] - (Please keep your previously scheduled apt.) Diet: Carb Consistent or DM2 Addtl Attending Provider Instructions: Tumor Lysis Syndrome: - Thankfully your lab work has improved since admission and you finished your Dexamethasone pulse. - Your Uric acid level is now normal at 6.7 which improved with Rasburicase - You were also treated with some fluids with bicarbonate in it to help balance your blood pH. You had a metabolic acidosis when you came in from this syndrome - You sugars have improved as well and hopefully will continue to improve now that the steroids are finished. Recommend to follow a carb consistent diet to help with this - Your electrolytes are now back to a good level as well - You will need to follow-up with Dr. Blair's office. Please give them a call to see when you should see them next and see if they want any pre-visit labs - You were also seen by a paint technician (kidney doctor) - Dr. Yoder with [facility]. He would like to follow-up with you as an outpatient -- The number is [phone] - just ask to be connected to the Food Scientist office or to Dr. Yoder's office -- Currently your creatinine - your kidney number - is down to 1.33 which is slightly better then your baseline which is around 1.6 Diabetes: - Your A1c is 7.6 - Continue to follow a carb consistent diet to help continue to reduce this number and obtain even better sugar control. - Recommend to continue your home medications and check sugars as you have Anemia: - You had lower blood counts during this admission. You were given blood products and now your hemoglobin (blood count) is 9.0 which is great Home Medications: - Continue your home medications as previously prescribed. We did not make adjustments to these Pending Studies at Discharge: No Stand-Alone Forms: My ClaimIt, Smoking Cessation Medications and DC Order Prescriptions: Continued glimepiride 2 mg tablet 4 mg PO QAM Qty: 60 RF: 6 lisinopril 5 mg tablet 5 mg PO QAM Qty: 90 RF: 3 atorvastatin 40 mg tablet 40 mg PO QAM Qty: 90 RF: 3 multivitamin Tablet 1 tab PO QAM RF: 0 cyanocobalamin (vitamin B-12) 1,000 mcg Tablet 1,000 mcg PO QPM RF: 0 coenzyme Q10 [Co Q-10] 100 mg Capsule 100 mg PO QPM RF: 0 levothyroxine 50 mcg tablet 50 mcg PO 4XWK RF: 0 levothyroxine 50 mcg tablet 25 mcg PO 3XWK RF: 0 hydrocortisone 2.5 % cream 1 applic TOPICAL BID RF: 0 omega [id number]-fish oil [Fish Oil] 1,000 mg (120 mg-180 mg) Capsule 1 cap PO QAM RF: 0 magnesium 250 mg Tablet 0 mg PO QPM RF: 0 Digestive Advantage 250 million cell Tablet,Chewable 1 cell PO BID RF: 0 Discontinued dexamethasone 4 mg tablet See Rx Instructions .ROUTE .COMPLEX RF: 0 Discharge Orders: Discharge Order (Routine); Ordered 07/30/19 Ordered By: Ninfa Bragg Admission Data Admit Date/Time: 07/27/19 17:26 Attending Provider: Saul Reddy Admit Provider: Tavon Lezama Primary Care Provider: Vinnie Crawford Other Providers: Tavon Lezama ; Kal Yoder ; Jose Alejandro Blair Other Interventions: Discharge Summary Assessment (RN) Last Done: 07/30/19 09:56 DC Date/Time DO NOT enter until pt leaves facility: 07/30/19 11:35 Coding Level of Care Code D/C Day Management >30 mins Diagnoses Tumor lysis syndrome E88.3 Metabolic acidosis E87.2 Acute hyperkalemia E87.5 Hyponatremia E87.1 Hyperglycemia R73.9 DM type 2 (diabetes mellitus, type 2) E11.9 Chronic kidney disease N18.9 Chronic kidney disease stage: unspecified stage CLL (chronic lymphocytic leukemia) C91.90 Anemia D64.9 Anemia type: unspecified type Hyperlipidemia E78.5 Hypothyroid E03.9 HTN (hypertension) I10 Hypertension type: essential hypertension Elevated alkaline phosphatase level R74.8
== END 2019-07-30 11:35 | disposition home or self-care (01) | DRG 683 ==
LOC: ED 14:25 → 2E 17:26 → SUATTDRO 17:26 → 2E 19:40 → 4W 07-28 14:57

== ENCOUNTER 2019-12-10 13:55 | Inpatient (IN) ==
[2019-12-10] MEDS: LACTATED RINGER'S 1,000 ML IV SCH ×2 (15:53→21:54)
--- NOTE | 2019-12-10 15:56 | Emergency Department Note ---
Impression & Plan Fever ED Provider Note NAME: PRISCILLA PEREZ AGE: 64 SEX: M ARRIVES VIA: Walk-In INFORMANT: [Patient] ED PROVIDER(S): Carlo Harden MD CHIEF COMPLAINT: Fever PLAN: Disposition: Admitted Condition: [Good] MEDICAL DECISION MAKING: Patient presented with fever and concerns about neutropenia given his active treatment for CLL. He was placed in isolation. The patient was evaluated. Laboratory testing, chest x-ray, and blood cultures performed. His urinalysis was unremarkable except for some bacteria but no other signs of infection. Chest imaging was concerning for left lower lobe infiltrate. The patient had pancytopenia noted on CBC. The patient was significantly neutropenic. Daylin lynette panel was unremarkable. Lactate negative. The patient was treated with IV cefepime, fluid hydration, and IV vancomycin. Consultation was made with internal medicine for further evaluation. The patient was admitted. Triage Nursing notes reviewed and agree them. Vital Signs: reviewed and remarkable for fever Differential diagnosis: Febrile neutropenia, viral syndrome, otitis, pharyngitis, pneumonia, influenza, meningitis, urinary tract infection, sepsis, bacteremia, as well as other pathologies. ER treatment provided: Oral Tylenol Fluid hydration IV cefepime IV vancomycin Diagnostics interpreted by me: ECG: Rate: 86 Rhythm:Normal sinus [place]:Normal QRS: Low voltage ST segements:No elevation or depression Other:No PACs or PVCs. Septal Q waves Cardiac Monitoring: [none] Imaging studies: Left lower lobe infiltrate as above. Consultation(s): Dr. Ocasio of internal medicine HPI: The patient is a 64 year old male who presents to the Emergency Room with complaints of fever. This started today and is fluctuating. The patient also notes the following associated symptoms, chills and chronic cough. The patient has found no relieving factors. Current pain is rated as 0/10. Receiving chemo for CLL. Concerned due to low neutrophil counts recently. Pt denies LOC, headache, diaphoresis, visual changes, neck pain, chest pain, breathing difficulties, nausea, vomiting, abdominal pain, back pain, melena, hematochezia, urinary symptoms, numbness, weakness, lymphadenopathy, rash, or other complaints. ROS: See above HPI for pertinent positives & negatives. A total of [10] systems reviewed and were otherwise negative. PAST MEDICAL HISTORY:[See Below] CLL PAST SURGICAL HISTORY:[See Below]Colostomy FAMILY HISTORY:[See Below] SOCIAL HISTORY:[See Below]No tob HOME MEDICATIONS:[See Below] ALLERGIES:[See Below] VITALS:[See Below] PHYSICAL EXAMINATION: [] GENERAL: Awake, alert, mildly ill-appearing, in no distress HENT: Normocephalic, atraumatic. Oropharynx unremarkable. EYES: Normal conjunctiva. Sclera non-icteric. NECK: Inspection normal. Non-tender. Supple. No nuchal rigidity. FROM. No masses. RESPIRATORY: Clear to auscultation. No wheezes. No rales. Normal respiratory effort. CARDIAC: Normal rate. Normal rhythm. No murmurs. No rubs. Extremities warm and well perfused. Pulses equal. No JVD. GI: Soft, non-distended. No tenderness to palpation. No rebound or guarding. No masses. COlostomy in the LLQ RECTAL: Deferred. MUSCULOSKELETAL: Atraumatic. Chest examination reveals port in the EVELIN chest w all. The back is symmetrical on inspection without obvious abnormality. There is no CVA tenderness to palpation. No joint edema. LOWER EXTREMITIES: Calves are equal size bilaterally and non-tender. No edema. No discoloration. NEURO: Normal sensorium. No sensory or motor deficits noted. SKIN: No rash or jaundice noted. ED COURSE: [Critical Care:] [None] Carlo Harden MD Past Med/Surg History Social History Preferred Language: French Communication Ability: Effective Collateral Clerk Required: No Beliefs That Will Affect Care: None marital status: Current Living Situation: Spouse Current Living Situation Comment: [facility] Feels Safe at Home: Yes Safety Concerns: Feels Safe At This Time Smoking Status: Never smoker Second Hand Exposure: No ; Hx Alcohol Use: No Hx Substance Use: No Allergies Allergies Allergy/AdvReac Type Severity Reaction Status Date / Time ibrutinib [From Imbruvica] Allergy Intermediate LOOKED Verified 12/10/19 16:30 LIKE A LEOPARD SPOTTED ALL OVER NSAIDS (Non-Steroidal AdvReac Unknown DUE TO Verified 12/10/19 16:30 Anti-Inflamma DECREASED KIDNEY FUNCTION Home Meds Home Medications Medication Instructions Recorded Confirmed coenzyme Q10 [Co Q-10] 100 mg PO QAM 02/17/18 12/10/19 cyanocobalamin (vitamin B-12) 1,000 mcg PO QAM 02/17/18 12/10/19 multivitamin 1 tab PO QAM 02/17/18 12/10/19 Digestive Advantage Prob Gummy 1 cell PO QAM 07/27/19 12/10/19 hydrocortisone 1 applic TOPICAL BID PRN 07/27/19 12/10/19 magnesium 250 mg PO QAM 07/27/19 12/10/19 omega 9-czz-lav-fish oil [Fish Oil] 1 cap PO QAM 07/27/19 12/10/19 aspirin 81 mg PO QAM 11/04/19 12/10/19 acetaminophen [Tylenol] 650 mg PO Q6H PRN 12/10/19 12/10/19 levothyroxine See Rx Instructions .ROUTE .COMPLEX 12/10/19 12/10/19 ondansetron HCl 8 mg PO Q8H PRN 12/10/19 12/10/19 prednisone See Rx Instructions .ROUTE .COMPLEX 12/10/19 12/10/19 prochlorperazine maleate 10 mg PO Q6H PRN 12/10/19 12/10/19 Previous Rx's Medication Instructions Recorded lisinopril 5 mg tablet 5 mg PO QAM #90 tab 03/15/19 atorvastatin 40 mg tablet 40 mg PO QAM #90 tab 07/15/19 glimepiride 2 mg tablet 4 mg PO QAM #60 tab 09/16/19 blood sugar diagnostic #300 ea 12/10/19 Results & Data (ED) Vital Signs Vital Signs - 24 hr 12/10/19 13:56 12/10/19 15:48 12/10/19 15:50 Temperature 39.0 C H Temperature Source Oral Pulse Rate 106 H 106 H Pulse Rate [Radial] 89 Pulse Rate from SpO2 Sensor Pulse Rhythm Regular Regular Pulse Rhythm [Radial] Regular Pulse Strength Normal Pulse Strength [Radial] Normal Respiratory Rate 20 20 16 Respiratory Effort / Characteristics Non-Labored Non-Labored Spontaneous Respiratory Depth Normal Normal Respiratory Pattern Regular Regular Blood Pressure 122/65 Blood Pressure [Right Arm] 120/60 Blood Pressure Mean 84 Blood Pressure Mean [Right Arm] 80 Blood Pressure Position Sitting Pulse Oximetry 97 97 95 Oxygen Delivery Method Room Air Room Air Room Air Sepsis Recent Fever Within 48 Hours No Sepsis Action Taken by Nursing No Action Required 12/10/19 16:00 12/10/19 16:30 12/10/19 17:00 Temperature Temperature Source Pulse Rate 87 89 87 Pulse Rate [Radial] Pulse Rate from SpO2 Sensor 88 90 86 Pulse Rhythm Pulse Rhythm [Radial] Pulse Strength Pulse Strength [Radial] Respiratory Rate 33 H 31 H 27 H Respiratory Effort / Characteristics Respiratory Depth Respiratory Pattern Blood Pressure 122/56 L 113/57 L 120/56 L Blood Pressure [Right Arm] Blood Pressure Mean 68 70 68 Blood Pressure Mean [Right Arm] Blood Pressure Position Pulse Oximetry 95 94 92 Oxygen Delivery Method Sepsis Recent Fever Within 48 Hours Sepsis Action Taken by Nursing 12/10/19 17:30 12/10/19 18:00 12/10/19 18:30 Temperature Temperature Source Pulse Rate 82 83 84 Pulse Rate [Radial] Pulse Rate from SpO2 Sensor 81 83 84 Pulse Rhythm Pulse Rhythm [Radial] Pulse Strength Pulse Strength [Radial] Respiratory Rate 27 H 28 H 24 Respiratory Effort / Characteristics Respiratory Depth Respiratory Pattern Blood Pressure 120/62 122/64 120/51 L Blood Pressure [Right Arm] Blood Pressure Mean 79 82 69 Blood Pressure Mean [Right Arm] Blood Pressure Position Pulse Oximetry 94 95 97 Oxygen Delivery Method Sepsis Recent Fever Within 48 Hours Sepsis Action Taken by Nursing 12/10/19 19:00 Temperature Temperature Source Pulse Rate 86 Pulse Rate [Radial] Pulse Rate from SpO2 Sensor 86 Pulse Rhythm Pulse Rhythm [Radial] Pulse Strength Pulse Strength [Radial] Respiratory Rate 25 H Respiratory Effort / Characteristics Respiratory Depth Respiratory Pattern Blood Pressure 103/51 L Blood Pressure [Right Arm] Blood Pressure Mean 69 Blood Pressure Mean [Right Arm] Blood Pressure Position Pulse Oximetry 94 Oxygen Delivery Method Sepsis Recent Fever Within 48 Hours Sepsis Action Taken by Nursing Laboratory Data Result diagrams: 12/10/19 15:43 12/10/19 15:43 Lab Results 12/10/19 12/10/19 12/10/19 Range/Units 15:43 15:43 15:43 WBC 1.10 L (4.8-10.8) K/uL RBC 2.17 L (4.7-6.1) M/uL Hgb 7.0 L (14.0-18.0) g/dL Hct 21.1 L (42-52) % MCV 97.2 (80-100) fL MCH 32.3 (25-34) pg MCHC 33.2 (32-36) g/dL RDW Std Deviation 53.7 H (36.4-46.3) fL RDW Coeff of Leonela 15.1 H (11.5-14.5) % Plt Count 50 L (130-400) K/uL MPV 9.8 (7.4-10.4) fL Neutrophils % (Manual) 1.8 % Lymphocytes % (Manual) 98.2 % Neutrophils # (Manual) 0.02 L (1.4-6.5) K/uL Total Absolute Neuts 0.02 L* (1.4-6.5) K/uL Lymphocytes # (Manual) 1.08 L (1.2-3.4) K/uL Total Abs Lymphocytes 1.08 L (1.2-3.4) K/uL Tear Drop Cells 1+ Ovalocytes 1+ PT 12.2 H (9.0-12.0) Seconds INR 1.2 H (0.9-1.1) APTT 42.5 H (21.0-31.0) Seconds PTT Ratio 1.5 Sodium 133 L (136-145) mmol/L Potassium 4.0 (3.5-5.1) mmol/L Chloride 104 (98-107) mmol/L Carbon Dioxide 23 (21-32) mmol/L Anion Gap 6.0 (3-11) BUN 25 H (7-18) mg/dl Creatinine 1.62 H (0.6-1.4) mg/dl Est Cr Clr Drug Dosing 57.0 ml/min Est GFR ( Amer) 51.6 Est GFR (Non-Af Amer) 44.5 BUN/Creatinine Ratio 15.6 (10-20) Glucose 153 H (70-99) mg/dl Lactate (0.4-2.0) mmol/L Calcium 8.3 L (8.5-10.1) mg/dl Magnesium 1.8 (1.8-2.4) mg/dl Total Bilirubin 0.7 (0.2-1) mg/dl AST 14 L (15-37) U/L ALT 19 (12-78) U/L Alkaline Phosphatase 60 (45-117) U/L Total Protein 5.6 L (6.4-8.2) gm/dl Albumin 2.5 L (3.4-5.0) gm/dl Globulin 3.1 (2.5-4.0) gm/dl Albumin/Globulin Ratio 0.8 L (0.9-2) Urine Color Urine Appearance (Clear) Urine pH (4.5-7.5) Ur Specific [place] (1.000-1.030) Urine Protein (Negative) Urine Glucose (UA) (Negative) Urine Ketones (Negative) Urine Blood (Negative) Urine Nitrite (Negative) Urine Bilirubin (Negative) Urine Urobilinogen (Negative) Ur Leukocyte Esterase (Negative) Urine WBC (Auto) (0-5) /hpf Urine RBC (Auto) (0-4) /hpf U Hyaline Cast (Auto) (0-5) /lpf U Epithel Cells (Auto) (0-5) /lpf Urine Bacteria (Auto) (Negative) Urine Yeast 12/10/19 12/10/19 Range/Units 15:43 18:20 WBC (4.8-10.8) K/uL RBC (4.7-6.1) M/uL Hgb (14.0-18.0) g/dL Hct (42-52) % MCV (80-100) fL MCH (25-34) pg MCHC (32-36) g/dL RDW Std Deviation (36.4-46.3) fL RDW Coeff of Leonela (11.5-14.5) % Plt Count (130-400) K/uL MPV (7.4-10.4) fL Neutrophils % (Manual) % Lymphocytes % (Manual) % Neutrophils # (Manual) (1.4-6.5) K/uL Total Absolute Neuts (1.4-6.5) K/uL Lymphocytes # (Manual) (1.2-3.4) K/uL Total Abs Lymphocytes (1.2-3.4) K/uL Tear Drop Cells Ovalocytes PT (9.0-12.0) Seconds INR (0.9-1.1) APTT (21.0-31.0) Seconds PTT Ratio Sodium (136-145) mmol/L Potassium (3.5-5.1) mmol/L Chloride (98-107) mmol/L Carbon Dioxide (21-32) mmol/L Anion Gap (3-11) BUN (7-18) mg/dl Creatinine (0.6-1.4) mg/dl Est Cr Clr Drug Dosing ml/min Est GFR ( Amer) Est GFR (Non-Af Amer) BUN/Creatinine Ratio (10-20) Glucose (70-99) mg/dl Lactate 0.6 (0.4-2.0) mmol/L Calcium (8.5-10.1) mg/dl Magnesium (1.8-2.4) mg/dl Total Bilirubin (0.2-1) mg/dl AST (15-37) U/L ALT (12-78) U/L Alkaline Phosphatase (45-117) U/L Total Protein (6.4-8.2) gm/dl Albumin (3.4-5.0) gm/dl Globulin (2.5-4.0) gm/dl Albumin/Globulin Ratio (0.9-2) Urine Color Yellow Urine Appearance Clear (Clear) Urine pH 5.0 (4.5-7.5) Ur Specific [place] 1.021 (1.000-1.030) Urine Protein 2+ H (Negative) Urine Glucose (UA) Negative (Negative) Urine Ketones Negative (Negative) Urine Blood Trace H (Negative) Urine Nitrite Negative (Negative) Urine Bilirubin Negative (Negative) Urine Urobilinogen Negative (Negative) Ur Leukocyte Esterase Negative (Negative) Urine WBC (Auto) 1-5 (0-5) /hpf Urine RBC (Auto) 0-4 (0-4) /hpf U Hyaline Cast (Auto) 1-5 (0-5) /lpf U Epithel Cells (Auto) 10-20 H (0-5) /lpf Urine Bacteria (Auto) 1+ H (Negative) Urine Yeast Not Reportable Administered Medications Lactated Ringer's (Lr) 1,000 mls @ 150 mls/hr IV .[id number] [facility] Stop: 01/09/20 14:59 Last Admin: 12/10/19 21:54 Dose: 150 mls/hr Documented by: [id number] Infusion: 12/10/19 21:15 Dose: 0 mls/hr Documented by: [id number] Admin: 12/10/19 15:53 Dose: 150 mls/hr Documented by: [id number] Discontinued Medications Acetaminophen (Tylenol) 1,000 mg PO NOW STA Stop: 12/10/19 17:46 Last Admin: 12/10/19 18:23 Dose: 1,000 mg Documented by: [id number] Cefepime HCl (Maxipime) 2,000 mg in 20 mls @ 5 mls/min IV NOW STA; Protocol Stop: 12/10/19 17:48 Last Admin: 12/10/19 18:22 Dose: 5 mls/min Documented by: [id number] Vancomycin HCl 2,250 mg/ (Sodium Chloride) 545 mls @ 200 mls/hr IV NOW ONE Stop: 12/10/19 20:28 Last Infusion: 12/10/19 21:15 Dose: 0 mls/hr Documented by: [id number] Admin: 12/10/19 18:23 Dose: 200 mls/hr Documented by: [id number] Discharge Plan Visit Data Chief Complaint: Fever Stated Complaint: CHEMO PATIENT, FEVER ED Provider: Carlo Harden Discharge Problem: Fever Discharge Instructions Interventions: ED Discharge Assessment Last Done: 12/10/19 21:15
[2019-12-10 15:57] LABS: Mean Corpuscular Hgb Conc 33.2 g/dL (32-36)
[2019-12-10 16:12] LABS: INR 1.2 (0.9-1.1); Partial Thromboplastin Ratio 1.5; Partial Thromboplastin Time 42.5 Seconds (21.0-31.0); Prothrombin Time 12.2 Seconds (9.0-12.0)
[2019-12-10 16:13] LABS: Albumin Level 2.5 gm/dl (3.4-5.0); BUN Creatinine Ratio 15.6 (10-20); Calcium 8.3 mg/dl (8.5-10.1); Est GFR (African American) 51.6; Est GFR (Non-African American) 44.5; Magnesium 1.8 mg/dl (1.8-2.4)
[2019-12-10 16:16] LABS: Albumin Globulin Ratio 0.8 (0.9-2); Bilirubin,Total 0.7 mg/dl (0.2-1); Globulin 3.1 gm/dl (2.5-4.0); Total Protein 5.6 gm/dl (6.4-8.2)
--- NOTE | 2019-12-10 16:20 | XRay Report ---
XR chest 1V portable CLINICAL HISTORY: SEPSIS COMPARISON STUDY: 12/03/2019 FINDINGS: The heart is normal in size. There is no failure. There is a left-sided A-Port catheter. Th ere is a calcified granuloma the right lung base. There are minor left basilar airspace opacities, at electatic versus infectious/inflammatory. Clinical and radiographic follow-up is recommended.[ IMPRESSION: 1. Minor left basilar airspace opacities, atelectasis versus pneumonia. ACT 112: Negative or not required by law. Electronically signed by: Ambrosio Tierney M.D. 12/10/2019 4:19 PM
[2019-12-10] MEDS ORDERED: VANCOMYCIN HCL 2,250 MG in SODIUM CHLORIDE 0.9% 500 ML IV ONE (17:45)
[2019-12-10] MEDS ORDERED: ACETAMINOPHEN 500 MG TAB PO STA (17:45)
[2019-12-10] MEDS ORDERED: CEFEPIME 2,000 MG/20 ML VIAL IV STA (17:45)
[2019-12-10] MEDS ORDERED: VANCOMYCIN CONSULT ACTIVE PRN (17:45)
[2019-12-10 17:49] LABS: Hematocrit (blood only) 21.1 % (42-52); Mean Corpuscular Hemoglobin 32.3 pg (25-34); Mean Corpuscular Volume 97.2 fL (80-100); Mean Platelet Volume 9.8 fL (7.4-10.4); Ovalocytes 1+; Platelet Count 50 K/uL (130-400); RDW Coefficient of Variation 15.1 % (11.5-14.5); RDW Standard Deviation 53.7 fL (36.4-46.3); Red Blood Count 2.17 M/uL (4.7-6.1); Tear Drop Cells 1+
[2019-12-10 17:51] LABS: ALC (manual) 1.08 K/uL (1.2-3.4); ANC (manual) 0.02 K/uL (1.4-6.5); Lymphocytes # (manual) 1.08 K/uL (1.2-3.4); Lymphocytes % (manual) 98.2 %; Neutrophils # (manual) 0.02 K/uL (1.4-6.5); Neutrophils % (manual) 1.8 %
[2019-12-10 19:27] LABS: Appearance Urine Clear (Clear); Bilirubin Urine Negative (Negative); Blood Urine Trace (Negative); Color Urine Yellow; Glucose Urine UA Negative (Negative); Ketones Urine Negative (Negative); Leukocyte Esterase Urine Negative (Negative); Nitrite Urine Negative (Negative); Protein Urine 2+ (Negative); RBC Urine Automated 0-4 /hpf (0-4); Specific Gravity Urine 1.021 (1.000-1.030); Urobilinogen Urine Negative (Negative)
[2019-12-10 19:51] LABS: Bacteria Urine Automated 1+ (Negative)
--- NOTE | 2019-12-10 21:38 | History & Physical Report ---
Date of Service December 10, 2019 Assessment & Plan (1) Neutropenic fever: Vanc + Cefepime. 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 The patient reports he has 2 thermometers (forehead and ear) at home which measure different temperatures and he is unsure whether he had a temperature yesterday, however felt his normal self (fatigued with some shortness of breath) after having chemotherapy. He did notice a definitive fever today > 100.4 and given his neutropenia he was advised to come to the [facility]. He has ongoing fatigue and shortness of breath, however these are at his baseline after receiving chemotherapy. He notes a dry cough which is possibly worse than usual, but usually comes on with his chronic postnasal drip. Occasional nausea but this too is not unusual for him. Otherwise no dysuria, flank pain, change in urine frequency (although he notes usually this changes with chemotherapy)/smell/color, abdominal pain, nausea or vomiting. Allergies Allergy/AdvReac Type Severity Reaction Status Date / Time ibrutinib [From Imbruvica] Allergy Intermediate LOOKED Verified 12/10/19 16:30 LIKE A LEOPARD SPOTTED ALL OVER NSAIDS (Non-Steroidal AdvReac Unknown DUE TO Verified 12/10/19 16:30 Anti-Inflamma DECREASED KIDNEY FUNCTION Home Medications Home Medications Medication Instructions Recorded Confirmed Type coenzyme Q10 [Co Q-10] 100 mg PO QAM 02/17/18 12/10/19 History cyanocobalamin (vitamin B-12) 1,000 mcg PO QAM 02/17/18 12/10/19 History multivitamin 1 tab PO QAM 02/17/18 12/10/19 History lisinopril 5 mg tablet 5 mg PO QAM #90 tab 03/15/19 12/10/19 Rx atorvastatin 40 mg tablet 40 mg PO QAM #90 tab 07/15/19 12/10/19 Rx Digestive Advantage Prob Gummy 1 cell PO QAM 07/27/19 12/10/19 History hydrocortisone 1 applic TOPICAL BID PRN 07/27/19 12/10/19 History magnesium 250 mg PO QAM 07/27/19 12/10/19 History omega 9-zpc-drg-fish oil [Fish Oil] 1 cap PO QAM 07/27/19 12/10/19 History glimepiride 2 mg tablet 4 mg PO QAM #60 tab 09/16/19 12/10/19 Rx aspirin 81 mg PO QAM 11/04/19 12/10/19 History acetaminophen [Tylenol] 650 mg PO Q6H PRN 12/10/19 12/10/19 History blood sugar diagnostic #300 ea 12/10/19 Rx levothyroxine See Rx Instructions .ROUTE .COMPLEX 12/10/19 12/10/19 History ondansetron HCl 8 mg PO Q8H PRN 12/10/19 12/10/19 History prednisone See Rx Instructions .ROUTE .COMPLEX 12/10/19 12/10/19 History prochlorperazine maleate 10 mg PO Q6H PRN 12/10/19 12/10/19 History Past Med/Surg History Social History Preferred Language: Turkish Communication Ability: Effective Ampoule Inspector Required: No Beliefs That Will Affect Care: None marital status: Current Living Situation: Spouse Current Living Situation Comment: [facility] Feels Safe at Home: Yes Safety Concerns: Feels Safe At This Time Smoking Status: Never smoker Second Hand Exposure: No ; Hx Alcohol Use: No Hx Substance Use: No Review of Systems Genitourinary: + difficulty urinating (flow reduced when he does chemo); no dysuria and no urinary frequency Physical Exam Constitutional: well developed and well nourished; no acute distress Eyes: + anicteric sclerae; normal pupil size ENMT: external ear and nose normal, oropharynx normal Neck: trachea midline, no thyromegaly Respiratory: + labored breathing and able to speak in complete sentences (short); no retractions, does not use accessory muscles and no cough Auscultation: + crackles (few basal L > R); no diminished lung sounds, no rales, no rhonchi and no wheezes Cardiovascular: Rate/Rhythm: regular rhythm and + tachycardic Heart Sounds: no murmur Vessels: no JVD Extremities: normal capillary refill; no calf tenderness and no pedal edema (trace b/l equal to shins) Gastrointestinal (Abdomen): Inspection/Auscultation: abdomen normal to inspection and normal bowel sounds; abdomen not distended Percussion/Palpation: abdomen soft; abdomen nontender, no guarding and abdomen not rigid Musculoskeletal: no cyanosis or clubbing, extremities motor strength 5/5 Skin: no rashes, warm and dry (no cellulitis) Neurologic: moves all extremities and awake; no focal motor deficits and not confused Psychiatric: A+Ox3, euthymic affect Genitourinary: no CVA tenderness Lymphatic: no cervical or axillary lymphadenopathy Results & Data Results & Data ([facility]) Vital Signs (Past 12 Hours) Vital Signs Temp Pulse Pulse Resp BP BP Pulse Ox 12/10/19 21:15 80 23 117/58 L 96 12/10/19 21:00 80 23 117/58 L 96 12/10/19 20:30 80 18 118/55 L 96 12/10/19 20:00 84 21 118/57 L 94 12/10/19 19:35 37.5 C 12/10/19 19:30 87 19 106/57 L 96 12/10/19 19:00 86 25 H 103/51 L 94 12/10/19 18:30 84 24 120/51 L 97 12/10/19 18:00 83 28 H 122/64 95 12/10/19 17:30 82 27 H 120/62 94 12/10/19 17:00 87 27 H 120/56 L 92 12/10/19 16:30 89 31 H 113/57 L 94 12/10/19 16:00 87 33 H 122/56 L 95 12/10/19 15:50 89 16 120/60 95 12/10/19 15:48 106 H 20 97 12/10/19 13:56 39.0 C H 106 H 20 122/65 97 Diagnostic Findings XR chest 1V portable IMPRESSION: 1. Minor left basilar airspace opacities, atelectasis versus pneumonia. ECG Indication: tachycardia Rate (beats per minute): 86 Rhythm: normal sinus Findings: + other (age undertermined septal infarct) Comparison ECG Date: from (December 03, 2019) Change: the following changes noted (Age undetermined possible septal infarct is new) Code Status & VTE Plan Code Status Full - as discussed with the patient VTE Prophylaxis Plan VTE Prophylaxis will be ordered: Yes PG Care Time/CCT Total # of Minutes Spent Total Time Spent with Patient: Total time spent is greater than 50% in coordination of care (as documented) at patient's floor/unit and/or counseling patient: Coding Level of Care Code 78522 Initial Inpt Care Lvl 3 Diagnoses Neutropenic fever D70.9; R50.81 CLL (chronic lymphocytic leukemia) C91.90 Pancytopenia due to chemotherapy D61.810 Chronic kidney disease N18.9 Chronic kidney disease stage: unspecified stage HTN (hypertension) I10 Hypertension type: essential hypertension Hypothyroid E03.9 DM type 2 (diabetes mellitus, type 2) E11.9 Colostomy present Z93.3 DVT prophylaxis Z29.9 (1) Chronic kidney disease Chronic kidney disease stage: unspecified stage Qualified Code(s): N18.9 - Chronic kidney disease, unspecified (2) HTN (hypertension) Hypertension type: essential hypertension Qualified Code(s): I10 - Essential (primary) hypertension
[2019-12-10] MEDS ORDERED: PROCHLORPERAZINE MALEATE 10 MG TAB PO PRN (22:28)
[2019-12-10] MEDS ORDERED: NON-FORMULARY MEDICATION (Acetaminophen [Tylenol] 650 MG) PO PRN (22:28)
[2019-12-10] MEDS ORDERED: ACETAMINOPHEN 325 MG TAB ONE (22:41)
[2019-12-10] MEDS ORDERED: ONDANSETRON 8MG OD TAB PO PRN (22:42)
--- NOTE | 2019-12-10 22:58 | Pharmacy Report ---
Pharmacy Abx Dose Short Note - Date of Service December 10, 2019 - Assessment & Plan Assessment 64 year old M receiving vancomycin and cefepime for treatment of neutropenic fever Day # 1 of antimicrobial therapy. Plan Vancomycin * Estimated PK Parameters: Vd 0.65 L/kg, Alfredo 0.052 hr-1, t1/2 13.33 hr * Loading dose: 2250 mg (20 mg/kg) * Maintenance dose: 1500 mg IV (14.2 mg/kg) every 18 hours (start 4 hours early) * Goal trough level for neutropenic fever : 15 mcg/mL * Order trough based upon clinic picture Pharmacy will continue to follow and will adjust dose/frequency as necessary. Thank you.
[2019-12-11] MEDS: CEFEPIME 2,000 MG in SYRINGE 7.5 ML IV SCH ×3 (01:54→18:02)
[2019-12-11] MEDS: LACTATED RINGER'S 1,000 ML IV SCH ×2 (04:25→12:18)
[2019-12-11] MEDS: ACETAMINOPHEN 325 MG TAB PO PRN ×4 (04:26→20:55)
[2019-12-11] MEDS: LEVOTHYROXINE SODIUM 50 MCG TABLET PO SCH (06:05)
--- NOTE | 2019-12-11 07:31 | Electrocardiogram Report ---
Test Reason : Blood Pressure : / mmHG Vent. Rate : 086 BPM Atrial Rate : 086 BPM P-R Int : 178 ms QRS Dur : 082 ms QT Int : 356 ms P-R-T Axes : 017 -03 067 degrees QTc Int : 426 ms Normal sinus rhythm Low voltage QRS Septal infarct , age undetermined Abnormal ECG When compared with ECG of 03-DEC-2019 21:49, Vent. rate has increased BY 30 BPM Septal infarct is now Present Confirmed by Moisés Tinajero ([id number]) on 12/11/2019 7:30:52 AM Referred By: ER Confirmed By:Moisés Tinajero
[2019-12-11] MEDS: ASPIRIN 81 MG ECTAB PO SCH (07:42)
[2019-12-11] MEDS: OMEGA-3 (PURIFIED FISH OIL) 1 GM CAP PO SCH (07:42)
[2019-12-11] MEDS: CYANOCOBALAMIN 500 MCG TABLET (VITAMIN B-12) PO SCH (07:43)
[2019-12-11] MEDS: MULTIVITAMIN TAB PO SCH (07:43)
[2019-12-11] MEDS: MAGNESIUM OXIDE 400 MG TAB PO SCH (07:44)
[2019-12-11] MEDS: LACTOBACILLUS ACIDOPHILUS (FLORANEX) TAB PO SCH (07:44)
[2019-12-11] MEDS: lisinopriL 5 MG TAB PO SCH (07:44)
[2019-12-11] MEDS: ATORVASTATIN 40 MG TAB PO SCH (07:45)
[2019-12-11] MEDS ORDERED: COUGH DROP (SUGAR FREE) LOZ 24 LOZ/1 BOX BUCCAL ONE (08:09)
[2019-12-11] MEDS ORDERED: NON-FORMULARY MEDICATION (Coenzyme Q10 [Co Q-10] 100 MG) PO SCH (09:00)
[2019-12-11 09:58] LABS: BUN Creatinine Ratio 15.7 (10-20); Calcium 7.5 mg/dl (8.5-10.1); Creatinine Clr Calc Pharmacy 61.2 ml/min; Est GFR (African American) 56.6; Est GFR (Non-African American) 48.8; Potassium 3.8 mmol/L (3.5-5.1)
[2019-12-11 10:03] LABS: Hematocrit (blood only) 17.2 % (42-52); Hemoglobin 5.7 g/dL (14.0-18.0); Mean Corpuscular Hemoglobin 32.2 pg (25-34); Mean Corpuscular Hgb Conc 33.1 g/dL (32-36); Mean Corpuscular Volume 97.2 fL (80-100); Platelet Count 27 K/uL (130-400); RDW Coefficient of Variation 14.8 % (11.5-14.5); RDW Standard Deviation 53.1 fL (36.4-46.3); Red Blood Count 1.77 M/uL (4.7-6.1); White Blood Count 0.46 K/uL (4.8-10.8)
[2019-12-11 10:04] LABS: Platelet Estimate Decreased (Normal)
[2019-12-11] MEDS: VANCOMYCIN HCL 1,500 MG in SODIUM CHLORIDE 0.9% 500 ML IV SCH (10:24)
[2019-12-11] MEDS ORDERED: FILGRASTIM 480 MCG/1.6 ML VIAL SC ONE (11:01)
[2019-12-11] MEDS ORDERED: SODIUM CHLORIDE 0.9% 250 ML IV PRN (11:01)
[2019-12-11] MEDS ORDERED: GLUCOSE 10 TABS/TUBE PO PRN (11:04)
[2019-12-11] MEDS ORDERED: CARBOHYDRATES FOR HYPOGLYCEMIA PO PRN (11:04)
[2019-12-11] MEDS ORDERED: DEXTROSE 50% 50 ML SYRINGE IV PRN (11:04)
[2019-12-11] MEDS ORDERED: GLUCOSE 40% GEL 15 GM TUBE PO PRN (11:04)
[2019-12-11] MEDS ORDERED: GLUCAGON FOR INJ 1 MG VIAL SQ PRN (11:04)
[2019-12-11] MEDS: INSULIN ASPART 100 UNITS/ML 3 ML PEN SC SCH ×3 (13:46→21:31)
--- NOTE | 2019-12-11 19:23 | Hospitalist Progress Note ---
Date of Service December 11, 2019 Assessment & Plan (1) Neutropenic fever: Vanc + Cefepime. Possible PNA based on CXR and mild increasing in coughing. Given persistent fevers will add azithromycin for atypical coverage. Add MRSA nasal swab and biofire COVID-19 pending - although suspect unlikely given no hypoxia. (2) Pancytopenia due to chemotherapy: Discussed with Dr Morillo over the phone. Will transfuse 2 units of irradiated RBC and repeat H&H. Additional transfusion if Hgb < 7. Consent signed with patient. Neupogen 480 mcg SQ now, then QAM (will schedule for next 2 days) (3) CLL (chronic lymphocytic leukemia): Ongoing chemotherapy, not currently on prednisone (tapering course associated with chemotherapy) History of tumor lysis syndrome. No current electrolyte imbalance to suggest this. Consult oncology (4) Chronic kidney disease: Elevated Cr above baseline although he reports he usually gets IV fluids with oncology. Continue LR but at reduced 100ml/hr rate. Patient eating and drinking well by report. (5) HTN (hypertension): Lisinopril 5mg PO daily (6) Hypothyroid: Continue home dose levothyroxine (7) DM type 2 (diabetes mellitus, type 2): T2DM diet HBA1C not risk control field representative in setting of pancytopenia Hold glimepiride and use BSG ACHS and Novolog sliding scale, if > 10 units/day will add basal dosing (8) Colostomy present: s/p rectal perforation, no change in stool consistency (9) DVT prophylaxis: Thrombocytopenia, avoid chemical anticoagulation SCDs alone Admission and Anticipated Discharge Date Admission Date: December 10, 2019 Subjective Patient reports no large change since yesterday. He was having a sore throat this morning but this is already getting better. Feels he is having this from his post nasal drip. No worsening cough. Continuing fevers. Regarding his significant anemia he denies dizziness, chest pain, worsening shortness of breath no change in stools in colostomy bag. Review of Systems Review of Systems: All systems reviewed & are unremarkable except as noted in HPI & below Physical Exam Constitutional: well developed and well nourished; no acute distress Eyes: + anicteric sclerae; normal pupil size No cyanosis ENMT: external ear and nose normal, oropharynx normal Neck: trachea midline, no thyromegaly Respiratory: + labored breathing and able to speak in complete sentences (short); no retractions, does not use accessory muscles and no cough Auscultation: no diminished lung sounds, no crackles, no rales, no rhonchi and no wheezes Cardiovascular: Rate/Rhythm: regular rate and regular rhythm Heart Sounds: no murmur Extremities: normal capillary refill and + pedal edema (trace b/l equal, ankles) Gastrointestinal (Abdomen): Inspection/Auscultation: abdomen normal to inspection and normal bowel sounds; abdomen not distended Percussion/Palpation: abdomen soft; abdomen nontender, no guarding and abdomen not rigid Musculoskeletal: no cyanosis or clubbing, extremities motor strength 5/5 Neurologic: moves all extremities and awake; not confused Psychiatric: A+Ox3, euthymic affect Results & Data Results & Data ([facility]) Vital Signs (Past 12 Hours) Vital Signs Temp Pulse Pulse Resp BP BP Pulse Ox 12/11/19 18:35 38.2 C H 96 H 18 126/64 97 12/11/19 18:31 38.2 C H 95 H 18 131/67 96 12/11/19 18:00 36.8 C 86 17 135/68 95 12/11/19 17:00 36.8 C 90 18 125/68 96 12/11/19 16:00 37.6 C H 92 H 16 119/62 93 12/11/19 14:45 38.1 C H 85 18 102/59 L 94 12/11/19 14:44 38.6 C H 92 H 20 104/62 94 12/11/19 14:29 38.2 C H 93 H 20 101/53 L 94 12/11/19 13:43 38.2 C H 92 H 22 131/72 96 12/11/19 10:22 37.7 C H 12/11/19 08:30 37.8 C H 12/11/19 08:00 72 12/11/19 07:29 38 C H 88 18 127/69 96 PG Care Time/CCT Total # of Minutes Spent Total Time Spent with Patient: Total time spent is greater than 50% in coordination of care (as documented) at patient's floor/unit and/or counseling patient: Coding Level of Care Code 64559 Subseq Hosp Care Lvl 3 Diagnoses Neutropenic fever D70.9; R50.81 Pancytopenia due to chemotherapy D61.810 CLL (chronic lymphocytic leukemia) C91.90 Chronic kidney disease N18.9 Chronic kidney disease stage: unspecified stage HTN (hypertension) I10 Hypertension type: essential hypertension Hypothyroid E03.9 DM type 2 (diabetes mellitus, type 2) E11.9 Colostomy present Z93.3 DVT prophylaxis Z29.9 (1) Chronic kidney disease Chronic kidney disease stage: unspecified stage Qualified Code(s): N18.9 - Chronic kidney disease, unspecified (2) HTN (hypertension) Hypertension type: essential hypertension Qualified Code(s): I10 - Essential (primary) hypertension
[2019-12-11] MEDS ORDERED: AZITHROMYCIN 500 MG in DEXTROSE 5% 250 ML IV ONE (23:00)
[2019-12-11 23:06] LABS: Blood Urine 1+ (Negative); RBC Urine Automated 0-4 /hpf (0-4)
[2019-12-12 00:19] LABS: Hematocrit (blood only) 20.8 % (42-52)
[2019-12-12] MEDS: CEFEPIME 2,000 MG in SYRINGE 7.5 ML IV SCH ×3 (03:20→17:31)
[2019-12-12] MEDS: VANCOMYCIN HCL 1,500 MG in SODIUM CHLORIDE 0.9% 500 ML IV SCH (03:21)
[2019-12-12] MEDS: ACETAMINOPHEN 325 MG TAB PO PRN ×3 (03:37→17:41)
[2019-12-12] MEDS: LEVOTHYROXINE SODIUM 50 MCG TABLET PO SCH (06:12)
[2019-12-12] MEDS: LACTATED RINGER'S 1,000 ML IV SCH ×4 (06:38→20:59)
[2019-12-12 06:41] LABS: BUN Creatinine Ratio 15.2 (10-20); Calcium 7.7 mg/dl (8.5-10.1); Creatinine Clr Calc Pharmacy 63.9 ml/min; Est GFR (African American) 57.5; Est GFR (Non-African American) 49.6; Potassium 3.6 mmol/L (3.5-5.1)
[2019-12-12 07:10] LABS: Hematocrit (blood only) 20.4 % (42-52); Hemoglobin 6.8 g/dL (14.0-18.0); Mean Corpuscular Hemoglobin 32.2 pg (25-34); Mean Corpuscular Hgb Conc 33.3 g/dL (32-36); Mean Corpuscular Volume 96.7 fL (80-100); Mean Platelet Volume 10.4 fL (7.4-10.4); Platelet Count 27 K/uL (130-400); RDW Coefficient of Variation 16.4 % (11.5-14.5); RDW Standard Deviation 58.6 fL (36.4-46.3); Red Blood Count 2.11 M/uL (4.7-6.1); White Blood Count 0.77 K/uL (4.8-10.8)
[2019-12-12 07:13] LABS: Eosinophils # (auto) 0.01 K/uL (0-0.5); Eosinophils % (auto) 1.3 %; Lymphocytes # (auto) 0.74 K/uL (1.2-3.4); Lymphocytes % (auto) 96.1 %; Monocytes # (auto) 0.01 K/uL (0.11-0.59); Monocytes % (auto) 1.3 %; Neutrophils # (auto) 0.01 K/uL (1.4-6.5); Neutrophils % (auto) 1.3 %
[2019-12-12] MEDS: MULTIVITAMIN TAB PO SCH (08:26)
[2019-12-12] MEDS: OMEGA-3 (PURIFIED FISH OIL) 1 GM CAP PO SCH (08:26)
[2019-12-12] MEDS: FILGRASTIM 480 MCG/1.6 ML VIAL SC SCH (08:26)
[2019-12-12] MEDS: CYANOCOBALAMIN 500 MCG TABLET (VITAMIN B-12) PO SCH (08:27)
[2019-12-12] MEDS: MAGNESIUM OXIDE 400 MG TAB PO SCH (08:27)
[2019-12-12] MEDS: ATORVASTATIN 40 MG TAB PO SCH (08:27)
[2019-12-12] MEDS: lisinopriL 5 MG TAB PO SCH (08:27)
[2019-12-12] MEDS: ASPIRIN 81 MG ECTAB PO SCH (08:27)
[2019-12-12] MEDS: LACTOBACILLUS ACIDOPHILUS (FLORANEX) TAB PO SCH (08:28)
[2019-12-12] MEDS: INSULIN ASPART 100 UNITS/ML 3 ML PEN SC SCH ×4 (09:30→20:55)
[2019-12-12] MEDS: IPRATROPIUM BROMIDE NASAL SPRAY 0.06% 15ML NAE SCH ×2 (10:21→20:52)
--- NOTE | 2019-12-12 11:27 | Hospitalist Progress Note ---
Date of Service December 12, 2019 Assessment & Plan (1) LLL pneumonia: admission CXR with questionable LLL pneumonia. I repeated the CXR today - confirms LLL pneumonia. This is the likely source of neutropenic fever. cont cefepime - at risk of gram negative pathogens. cont vanco until MRSA swab returns. add doxycycline for atypical coverage. blood cx's negative to date. add tessalon pearles for cough. add combivent for reactive wheezing. COVID-19 PCR still pending - keep in airborne isolation. See discussion re: biofire panel below. Stop IVF (LR). (2) Rhinovirus infection: BioFire resp panel with enterovirus/rhinovirus. Suspect that patient had this virus to start with, then developed bacterial superinfection/pneumonia of LLL in the setting of his immunocompromised state/neutropenia. Awaiting COVID-19 PCR. Treat LLL pneumonia as above. (3) Neutropenic fever: likely 2nd to LLL pneumonia - see above. remains febrile - cont cefepime; add doxy for atypical pneumonia coverage; cont vanco to cover port and cover for MRSA pneumonia (await MRSA swab). COVID-19 pending. blood/urine cx's thus far negative. throat cx negative. (4) Pancytopenia due to chemotherapy: Cont Neupogen 480 mcg SQ QAM due to severe neutropenia. Daily CBC w/ diff. Neutropenic and airborne precautions. ?transfusion reaction yesterday - awaiting transfusion reaction panel. suspect fever yesterday was from illness and not a reaction. ideally would benefit from additional PRBCs given current Hb just shy of 7. supportive care in meantime. (5) CLL (chronic lymphocytic leukemia): Appreciate Dr Morillo's consult/recs. s/p R-CHOP about 10 days ago. should be at verito of low counts. daily CBC neupogen broad-spectrum IV abx for neutropenic fever/LLL pneumonia (6) Chronic kidney disease: stage 2 Cr stable BMP am (7) HTN (hypertension): cont Lisinopril 5mg PO daily (8) Hypothyroid: Continue home dose levothyroxine TSH 10 days ago was wnl (9) DM type 2 (diabetes mellitus, type 2): holding oral agents cont novolog sliding scale BSGs acceptable (10) Colostomy present: h/o rectal perforation (11) Mucositis: add magic mouthwash QID (12) DVT prophylaxis: Thrombocytopenia - severe avoid chemical anticoagulation SCDs alone ambulation updated extensively today Admission and Anticipated Discharge Date Admission Date: December 10, 2019 Subjective patient complains of nonproductive cough, sore throat, mouth pain, poor appetite, mild dyspnea. he states he has dyspnea, however, when his "counts are low". continues with fevers, chills, fatigue. Colostomy output has been increased and more liquid than typical. not doing much walking - just in room. yesterday during blood transfusion had temp of 39.3 - concern for transfusion rxn - PRBC infusion stopped; transfusion rxn panel sent to blood bank. Review of Systems Constitutional: + fever, + chills, + fatigue and + anorexia; no body aches Ear, Nose, Mouth, Throat: + sore throat; no nasal congestion Respiratory: + cough, + dyspnea and + wheezing Cardiovascular: no chest pain Gastrointestinal: no abdominal pain and no vomiting Physical Exam Constitutional: + acute distress (mild tachypnea but no retractions ), + ill appearing and + frail appearing; no altered mental status ENMT: Mouth: + oral mucosal abnormality (mucositis) Respiratory: Auscultation: + diminished lung sounds (both bases, worse on left ), + crackles (minimal - left base) and + wheezes (hint of b/l (end-expiratory)) Cardiovascular: Rate/Rhythm: regular rate and regular rhythm Heart Sounds: normal S1 and normal S2; no murmur Vessels: posterior tibial pulses present and dorsalis pedis pulses present; no JVD Extremities: no edema Chest (Breasts): Additional Comments: port, left upper chest - clean, nontender Gastrointestinal (Abdomen): normal bowel sounds, soft, nontender, no hepatosplenomegaly colostomy with liquid stool Skin: + pallor; no rashes Psychiatric: Orientation: alert Results & Data Results & Data ([facility]) Vital Signs (Past 12 Hours) Vital Signs Temp Pulse Pulse Resp BP BP Pulse Ox 12/12/19 08:22 37.1 C 80 18 121/66 96 12/12/19 07:22 82 12/12/19 06:25 37.2 C 12/12/19 03:31 39.3 C H 91 H 18 133/73 93 12/12/19 00:36 86 Laboratory Results Laboratory Results - last 24 hr 12/11/19 12/11/19 12/11/19 11:19 12:27 17:01 WBC RBC Hgb Hct MCV MCH MCHC RDW Std Deviation RDW Coeff of Leonela Plt Count MPV Immature Gran % (Auto) Neut % (Auto) Lymph % (Auto) Walker % (Auto) Eos % (Auto) Baso % (Auto) Neut # (Auto) Lymph # (Auto) Walker # (Auto) Eos # (Auto) Baso # (Auto) Immature Gran # (Auto) Sodium Potassium Chloride Carbon Dioxide Anion Gap BUN Creatinine Est Cr Clr Drug Dosing Est GFR ( Amer) Est GFR (Non-Af Amer) BUN/Creatinine Ratio Glucose POC Glucose 145 H 137 H Calcium Urine Blood Urine RBC (Auto) Urine Legionella Ag Blood Type O Negative Antibody Screen NEGATIVE Crossmatch See Detail Transfusion React Date Transfusion React Time Tx React Symptoms Reaction Clerical Check Lab Clerical Err Check React Component Return Volume Returned Pre-Trans Blood Type Pre-Trans Vis Hemolysis Pre-Trans THIEN Pre-Trans THIEN IgG Pre-Trans THIEN Poly Pre-Trans THIEN C3b, C3d Post-Trans Blood Type Post-Tx Visible Hemolys Post-Trans THIEN Post-Trans THIEN IgG Post-Trans THIEN Poly Post-Trans THIEN C3b, C3d Post-Trans Ur Hemoglobin Reaction Path Interpret Transfusion Serv Com 12/11/19 12/11/19 12/11/19 20:12 21:23 22:20 WBC RBC Hgb Hct MCV MCH MCHC RDW Std Deviation RDW Coeff of Leonela Plt Count MPV Immature Gran % (Auto) Neut % (Auto) Lymph % (Auto) Walker % (Auto) Eos % (Auto) Baso % (Auto) Neut # (Auto) Lymph # (Auto) Walker # (Auto) Eos # (Auto) Baso # (Auto) Immature Gran # (Auto) Sodium Potassium Chloride Carbon Dioxide Anion Gap BUN Creatinine Est Cr Clr Drug Dosing Est GFR ( Amer) Est GFR (Non-Af Amer) BUN/Creatinine Ratio Glucose POC Glucose 156 H Calcium Urine Blood 1+ H Urine RBC (Auto) 0-4 Urine Legionella Ag Blood Type Antibody Screen Crossmatch Transfusion React Date Pending Transfusion React Time Pending Tx React Symptoms Pending Reaction Clerical Check Pending Lab Clerical Err Check Pending React Component Return Pending Volume Returned Pending Pre-Trans Blood Type Pending Pre-Trans Vis Hemolysis Pending Pre-Trans THIEN Pending Pre-Trans THIEN IgG Pending Pre-Trans THIEN Poly Pending Pre-Trans THIEN C3b, C3d Pending Post-Trans Blood Type Pending Post-Tx Visible Hemolys Pending Post-Trans THIEN Pending Post-Trans THIEN IgG Pending Post-Trans THIEN Poly Pending Post-Trans THIEN C3b, C3d Pending Post-Trans Ur Hemoglobin Pending Reaction Path Interpret Pending Transfusion Serv Com Pending 12/11/19 12/11/19 12/12/19 22:20 23:35 05:45 WBC RBC Hgb 7.0 L Hct 20.8 L* MCV MCH MCHC RDW Std Deviation RDW Coeff of Leonela Plt Count MPV Immature Gran % (Auto) Neut % (Auto) Lymph % (Auto) Walker % (Auto) Eos % (Auto) Baso % (Auto) Neut # (Auto) Lymph # (Auto) Walker # (Auto) Eos # (Auto) Baso # (Auto) Immature Gran # (Auto) Sodium 137 Potassium 3.6 Chloride 108 H Carbon Dioxide 22 Anion Gap 7.0 BUN 23 H Creatinine 1.48 H Est Cr Clr Drug Dosing 63.9 Est GFR ( Amer) 57.5 Est GFR (Non-Af Amer) 49.6 BUN/Creatinine Ratio 15.2 Glucose 143 H POC Glucose Calcium 7.7 L Urine Blood Urine RBC (Auto) Urine Legionella Ag Pending Blood Type Antibody Screen Crossmatch Transfusion React Date Transfusion React Time Tx React Symptoms Reaction Clerical Check Lab Clerical Err Check React Component Return Volume Returned Pre-Trans Blood Type Pre-Trans Vis Hemolysis Pre-Trans THIEN Pre-Trans THIEN IgG Pre-Trans THIEN Poly Pre-Trans THIEN C3b, C3d Post-Trans Blood Type Post-Tx Visible Hemolys Post-Trans THIEN Post-Trans THIEN IgG Post-Trans THIEN Poly Post-Trans THIEN C3b, C3d Post-Trans Ur Hemoglobin Reaction Path Interpret Transfusion Serv Com 12/12/19 12/12/19 05:45 08:18 WBC 0.77 L* RBC 2.11 L Hgb 6.8 L* Hct 20.4 L* MCV 96.7 MCH 32.2 MCHC 33.3 RDW Std Deviation 58.6 H RDW Coeff of Leonela 16.4 H Plt Count 27 L* MPV 10.4 Immature Gran % (Auto) 0.0 Neut % (Auto) 1.3 Lymph % (Auto) 96.1 Walker % (Auto) 1.3 Eos % (Auto) 1.3 Baso % (Auto) 0.0 Neut # (Auto) 0.01 L* Lymph # (Auto) 0.74 L Walker # (Auto) 0.01 L Eos # (Auto) 0.01 Baso # (Auto) 0.00 Immature Gran # (Auto) 0.00 Sodium Potassium Chloride Carbon Dioxide Anion Gap BUN Creatinine Est Cr Clr Drug Dosing Est GFR ( Amer) Est GFR (Non-Af Amer) BUN/Creatinine Ratio Glucose POC Glucose 154 H Calcium Urine Blood Urine RBC (Auto) Urine Legionella Ag Blood Type Antibody Screen Crossmatch Transfusion React Date Transfusion React Time Tx React Symptoms Reaction Clerical Check Lab Clerical Err Check React Component Return Volume Returned Pre-Trans Blood Type Pre-Trans Vis Hemolysis Pre-Trans THIEN Pre-Trans THIEN IgG Pre-Trans THIEN Poly Pre-Trans THIEN C3b, C3d Post-Trans Blood Type Post-Tx Visible Hemolys Post-Trans THIEN Post-Trans THIEN IgG Post-Trans THIEN Poly Post-Trans THIEN C3b, C3d Post-Trans Ur Hemoglobin Reaction Path Interpret Transfusion Serv Com blood, urine and throat cultures pending PG Care Time/CCT Total # of Minutes Spent Total Time Spent with Patient: Total time spent is greater than 50% in coordination of care (as documented) at patient's floor/unit and/or counseling patient: Coding Level of Care Code 01890 Subseq Hosp Care Lvl 3 Diagnoses LLL pneumonia J18.9 Rhinovirus infection B34.8 Neutropenic fever D70.9; R50.81 Pancytopenia due to chemotherapy D61.810 CLL (chronic lymphocytic leukemia) C91.90 Chronic kidney disease N18.9 Chronic kidney disease stage: unspecified stage HTN (hypertension) I10 Hypertension type: essential hypertension Hypothyroid E03.9 DM type 2 (diabetes mellitus, type 2) E11.9 Colostomy present Z93.3 Mucositis K12.30 DVT prophylaxis Z29.9 (1) Chronic kidney disease Chronic kidney disease stage: unspecified stage Qualified Code(s): N18.9 - Chronic kidney disease, unspecified (2) HTN (hypertension) Hypertension type: essential hypertension Qualified Code(s): I10 - Essential (primary) hypertension
--- NOTE | 2019-12-12 11:41 | XRay Report ---
XR chest 1V portable CLINICAL HISTORY: neutropenic fever; ?LLL infiltrate? ABNORMAL CHEST X-RAY COMPARISON STUDY: 12/10/2019 FINDINGS: The cardiac and mediastinal contours remain stable. There is a left-sided A-Port catheter. There are progressive left lower lung zone airspace opacities suspicious for pneumonia. Clinical and radiographic follow-up is recommended.[ IMPRESSION: Progressive left lower lung zone airspace opacity suspicious for pneumonia. Clinical and radiographic follow-up is recommended. ACT 112: Negative or not required by law. Electronically signed by: Ambrosio Tierney M.D. 12/12/2019 11:40 AM
[2019-12-12] MEDS ORDERED: ALBUTEROL HFA 8 GM INHALER INH PRN (11:53)
[2019-12-12] MEDS ORDERED: IPRATROPIUM BROMIDE HFA INHALER INH PRN (11:55)
[2019-12-12] MEDS: DOXYCYCLINE HYCLATE 100 MG in DEXTROSE 5% 100 ML IV SCH ×2 (12:18→22:02)
[2019-12-12] MEDS ORDERED: IPRATROPIUM BROMIDE/ALBUTEROL respimat INH INH SCH (13:00)
[2019-12-12] MEDS: BENZONATATE 100 MG CAPSULE PO SCH ×2 (13:35→20:52)
--- NOTE | 2019-12-12 13:51 | Consultation Report ---
DATE OF CONSULTATION: 12/12/2019 REASON FOR CONSULTATION: Neutropenic fever in a 64-year-old gentleman with relapsed chronic lymphocytic leukemia. HISTORY OF PRESENT ILLNESS: The patient is a pleasant 64-year-old gentleman well known to [facility], currently under my care for relapsed chronic lymphocytic leukemia. This gentleman had previously been cared for by Dr. Blair and has been heavily pretreated. He also consults with Dr. Salamanca supply chain associate at the [facility] who made the latest recommendations to administer R-CHOP as salvage. This gentleman received his initial course of R-CHOP on 12/02/2019 and received Neulasta on 12/03/2019. He presents with a low-grade fever. He measured his temperature on numerous occasions and measured over 100.4 Fahrenheit. He also complained of ongoing fatigue, shortness of breath which is not surprising considering he presented with severe anemia and neutropenia attributable to chemotherapy. He reports no other symptomatology except for mild sore throat. PAST MEDICAL HISTORY: Significant for relapsed chronic lymphocytic leukemia, chronic kidney disease, hypertension, hypothyroidism, type 2 diabetes mellitus. MEDICATIONS: Prior to admission include Coenzyme Q10 100 mg p.o. daily, cyanocobalamin 1000 mcg p.o. daily, multivitamin 1 p.o. daily, lisinopril 5 mg p.o. daily, atorvastatin 40 mg p.o. daily, magnesium 250 mg p.o. daily, glyburide 4 mg p.o. daily, aspirin 81 mg p.o. daily, Tylenol 650 mg p.o. q. 6 hours p.r.n., levothyroxine dose unknown, Zofran 8 mg p.o. q. 8 hours p.r.n. and prednisone per chemotherapeutic regimen which is 100 mg p.o. on days 1 through 5. ALLERGIES: IBRUTINIB AND NONSTEROIDAL ANTI-INFLAMMATORY AGENTS. SOCIAL HISTORY: The patient lives with his spouse. He is nonsmoker, nondrinker, non-illicit drug user. FAMILY HISTORY: Noncontributory. REVIEW OF SYSTEMS: CONSTITUTIONAL: As per HPI, most notably for low-grade fever, fatigue, asthenia. He is not anorexic or losing weight. SKIN: No rashes or lesions. No history of dermatoses. HEENT: He denies headaches, lightheadedness or dizziness. No acute visual or hearing deficits. No sinus symptoms. Positive for mild sore throat. LYMPH: Positive history of relapsed CLL with prominent left axillary lymph node. HEART: Negative for coronary artery disease. No current angina or palpitations. PULMONARY: Negative for COPD. He is not short of breath, dyspneic or orthopneic. No cough or hemoptysis. GASTROINTESTINAL: Negative for abdominal pain, nausea, vomiting, diarrhea or constipation, hematochezia or melena stools. GENITOURINARY: No hematuria, dysuria, urinary incontinence. PSYCHIATRIC: Negative for anxiety, depression or psychoses. ENDOCRINE: Positive for hypothyroidism and type 2 diabetes mellitus. MUSCULOSKELETAL: No focal muscle weakness. No arthralgias. NEUROLOGIC: Negative for seizure, stroke, or migraine headache. HEMATOLOGIC: Positive for pancytopenia attributable to chemotherapy. PHYSICAL EXAMINATION: GENERAL: Very pleasant 64-year-old gentleman, awake, alert and appropriate, in no acute distress. VITAL SIGNS: Temperature 37.1, pulse 80, respiratory rate 18, blood pressure 121/66. SKIN: Warm, dry, noncyanotic without petechia, rash or ecchymosis. HEENT: Head is atraumatic, normocephalic. Eyes: PERRLA, EOMI. Sclerae nonicteric. No conjunctival injection. Nares are patent without rhinorrhea or discharge. Throat is clear. Tongue midline. Mucous membranes are moist. NECK: Supple without JVD or thyromegaly. HEART: Regular rate and rhythm. No clicks, rubs, murmurs or gallops. LUNGS: Clear to auscultation bilaterally. ABDOMEN: Soft, nontender, nondistended, without palpable hepatosplenomegaly. EXTREMITIES: No clubbing, cyanosis, or edema. Strength and pulses are equal in all 4 quadrants. NEUROLOGICALLY: He is awake, alert and oriented x3. Cranial nerves are grossly intact. LABORATORY DATA: WBC count 770, hemoglobin 6.8, platelet count 27,000, absolute neutrophil count 10. Sodium 137, potassium 3.6, chloride 108, carbon dioxide 22, creatinine 1.48, BUN 23, glucose 143. RADIOGRAPHIC DATA: Chest x-ray done on 12/10/2019 minor left basilar airspace opacities, atelectasis versus pneumonia. IMPRESSION: 1. Neutropenic fever. 2. Pancytopenia attributable to chemotherapeutic effect. 3. Relapsed chronic lymphocytic leukemia, status post cycle 1 R-CHOP chemotherapy administered on 12/03/2019. 4. Type 2 diabetes mellitus. 5. Hypothyroidism. 6. Essential hypertension. PLAN: It was my pleasure to visit with the patient this morning at bedside. He is feeling better. A complete infectious workup underway including COVID-19 screening. Cultures thus far negative and should continue broad spectrum antimicrobial coverage. Perhaps add Magic mouthwash as he suffers from mild mucositis again attributable to chemotherapy. This gentleman has been heavily pretreated and thus not surprising the degree of myelosuppression and recovery may be a prolonged. Agree with current medical management and transfusional support, should receive irradiated packed RBCs for hemoglobin less than 7 grams per deciliter. I agree with supplementing Neupogen 480 mcg subQ daily for the next couple of days. We will continue to follow the patient during his hospital stay. Any questions or concerns, feel free to contact me at any time. FELIX
[2019-12-12 13:55] LABS: Adenovirus PCR Not Detected (NotDetected); Bordetella parapertussis PCR Not Detected (NotDetected); Bordetella pertussis PCR Not Detected (NotDetected); Chlamydia pneumoniae PCR Not Detected (NotDetected); Coronavirus 229E PCR Not Detected (NotDetected); Coronavirus HKU1 PCR Not Detected (NotDetected); Coronavirus NL63 PCR Not Detected (NotDetected); Coronavirus OC43PCR Not Detected (NotDetected); Human Metapneumovirus PCR Not Detected (NotDetected); Influenza A PCR Not Detected (NotDetected); Influenza B PCR Not Detected (NotDetected); Mycoplasma pneumoniae PCR Not Detected (NotDetected); Parainfluenza Virus 1 PCR Not Detected (NotDetected); Parainfluenza Virus 2 PCR Not Detected (NotDetected); Parainfluenza Virus 3 PCR Not Detected (NotDetected); Parainfluenza Virus 4 PCR Not Detected (NotDetected); Respiratory Syncytial VirusPCR Not Detected (NotDetected)
[2019-12-12 13:58] LABS: Rhinovirus/Enterovirus PCR DETECTED (NotDetected)
[2019-12-12] MEDS: NYSTATIN 30 ML, DEXAMETHASONE CONC 3.75 MG, DiphenhydrAMINE Syrup 300 MG, ORA-SWEET SYR... PO SCH ×2 (15:32→17:30)
[2019-12-12] MEDS: IPRATROPIUM BROMIDE HFA INHALER INH SCH ×2 (17:30→20:29)
[2019-12-12] MEDS: ALBUTEROL HFA 8 GM INHALER INH SCH ×2 (17:32→20:29)
[2019-12-12] MEDS ORDERED: VANCOMYCIN TROUGH ONE (21:30)
[2019-12-12] MEDS: HEPARIN 100 UNIT/ML 5ML FLUSH FLUSH PRN (22:12)
--- NOTE | 2019-12-12 23:07 | Pharmacy Report ---
Pharmacy Abx Dose Short Note - Date of Service December 12, 2019 - Assessment & Plan Assessment 64 year old M receiving vancomycin/cefepime for treatment of neutropenic fever Day # 3 of antimicrobial therapy. Plan Vancomycin * Trough level of 13.3 mcg/mL is subtherapeutic -- patient's fever curve is improving. BMI is above 35 so do expect some accumulation. Still nervous however that levels will remain below 15 mcg/mL despite above factors. * Change to 1500 mg IV every 16 hours * Goal trough level for neutropenic fever : 15 to 20 mcg/mL * Trough ordered for: 12/14/19 prior to 0600 dose Pharmacy will continue to follow and will adjust dose/frequency as necessary. Thank you.
[2019-12-13] MEDS: VANCOMYCIN HCL 1,500 MG in SODIUM CHLORIDE 0.9% 500 ML IV SCH (00:09)
[2019-12-13] MEDS: NYSTATIN 30 ML, DEXAMETHASONE CONC 3.75 MG, DiphenhydrAMINE Syrup 300 MG, ORA-SWEET SYR... PO SCH ×5 (00:10→22:13)
[2019-12-13] MEDS: ACETAMINOPHEN 325 MG TAB PO PRN ×2 (00:14→08:05)
[2019-12-13] MEDS: CEFEPIME 2,000 MG in SYRINGE 7.5 ML IV SCH ×3 (02:50→17:31)
[2019-12-13] MEDS: LEVOTHYROXINE SODIUM 50 MCG TABLET PO SCH (06:04)
[2019-12-13 06:19] LABS: Hematocrit (blood only) 20.2 % (42-52); Hemoglobin 6.8 g/dL (14.0-18.0); Mean Corpuscular Hemoglobin 32.1 pg (25-34); Mean Corpuscular Hgb Conc 33.7 g/dL (32-36); Mean Corpuscular Volume 95.3 fL (80-100); Mean Platelet Volume 11.4 fL (7.4-10.4); Platelet Count 31 K/uL (130-400); RDW Coefficient of Variation 16.3 % (11.5-14.5); RDW Standard Deviation 57.9 fL (36.4-46.3); Red Blood Count 2.12 M/uL (4.7-6.1); White Blood Count 0.88 K/uL (4.8-10.8)
[2019-12-13 06:41] LABS: BUN Creatinine Ratio 13.5 (10-20); Calcium 7.8 mg/dl (8.5-10.1); Creatinine Clr Calc Pharmacy 64.5 ml/min; Est GFR (African American) 58.5; Est GFR (Non-African American) 50.5; Potassium 3.6 mmol/L (3.5-5.1)
[2019-12-13 07:05] LABS: Eosinophils # (auto) 0.01 K/uL (0-0.5); Eosinophils % (auto) 1.1 %; Immature Granulocytes # (auto) 0.01 K/uL (0.00-0.02); Immature Granulocytes % (auto) 1.1 %; Lymphocytes % (auto) 90.9 %; Monocytes # (auto) 0.02 K/uL (0.11-0.59); Monocytes % (auto) 2.3 %; Neutrophils # (auto) 0.04 K/uL (1.4-6.5); Neutrophils % (auto) 4.6 %; Ovalocytes 1+
[2019-12-13] MEDS: IPRATROPIUM BROMIDE HFA INHALER INH SCH ×2 (07:23→10:45)
[2019-12-13] MEDS: ALBUTEROL HFA 8 GM INHALER INH SCH ×2 (07:24→10:45)
[2019-12-13] MEDS: OMEGA-3 (PURIFIED FISH OIL) 1 GM CAP PO SCH (08:04)
[2019-12-13] MEDS: BENZONATATE 100 MG CAPSULE PO SCH ×3 (08:04→21:11)
[2019-12-13] MEDS: ATORVASTATIN 40 MG TAB PO SCH (08:05)
[2019-12-13] MEDS: MAGNESIUM OXIDE 400 MG TAB PO SCH (08:05)
[2019-12-13] MEDS: lisinopriL 5 MG TAB PO SCH (08:06)
[2019-12-13] MEDS: MULTIVITAMIN TAB PO SCH (08:06)
[2019-12-13] MEDS: CYANOCOBALAMIN 500 MCG TABLET (VITAMIN B-12) PO SCH (08:06)
[2019-12-13] MEDS: ASPIRIN 81 MG ECTAB PO SCH (08:06)
[2019-12-13] MEDS: IPRATROPIUM BROMIDE NASAL SPRAY 0.06% 15ML NAE SCH ×2 (08:07→21:10)
[2019-12-13] MEDS: LACTOBACILLUS ACIDOPHILUS (FLORANEX) TAB PO SCH (08:09)
[2019-12-13] MEDS: FILGRASTIM 480 MCG/1.6 ML VIAL SC SCH (08:13)
[2019-12-13] MEDS: INSULIN ASPART 100 UNITS/ML 3 ML PEN SC SCH ×4 (08:34→21:05)
--- NOTE | 2019-12-13 10:27 | Progress Notes ---
DATE: 12/13/2019 DIAGNOSES: 1. Neutropenic fever. 2. Pancytopenia attributable to chemotherapeutic effect. 3. Relapsed chronic lymphocytic leukemia, status post cycle 1 R-CHOP chemotherapy administered 12/03/2019. 4. Type 2 diabetes mellitus. 5. Hypothyroidism. 6. Essential hypertension. SUBJECTIVE: The patient was seen and examined at bedside. He again is showing some clinical improvement. I spoke to Dr. Reddy, who is convinced he indeed has a left lower lobe pneumonia and continues antibiotics. He also continues to receive daily Neupogen with improvement in his ANC. Await COVID testing, but again suspect his symptoms are not credit and collections representative of coronavirus. He continues to complain of sore throat I believe attributable to mucositis. OBJECTIVE: GENERAL: The patient is 64 years of age and in no distress. VITAL SIGNS: Temperature 37.4, pulse 78, respiratory rate 18, blood pressure 120/58. SKIN: Without rash or lesion. HEENT: Oral mucosa erythematous, consistent with mild mucositis. NECK: Supple. HEART: Regular rate and rhythm. LUNGS: Fine crackles in the posterior bases. ABDOMEN: Soft, nontender. EXTREMITIES: No clubbing, cyanosis or edema. NEUROLOGIC: Grossly intact. LABORATORY DATA: WBC count 880, hemoglobin 6.8, platelet count 31,000, absolute neutrophil count 40. Sodium 140, potassium 3.6, chloride 110, creatinine 1.46, BUN 20, carbon dioxide 21. Viral cultures positive for rhinovirus. RADIOGRAPHIC DATA: Chest x-ray done on 12/12/2019 with progressive left lower lung zone airspace opacities suspicious for pneumonia. IMPRESSION: 1. Left lower lobe pneumonia (rhinovirus). 2. Neutropenic fever. 3. Pancytopenia attributable to chemotherapeutic effect. 4. Relapsed CLL. 5. Type 2 diabetes mellitus. 6. Hypothyroidism. PLAN: I spoke to Dr. Reddy, the managing hospitalist this morning. Plans are underway to perhaps transfuse an additional 1 or 2 units of irradiated packed RBCs. Platelets seem to be slowly improving as is his absolute neutrophil count, slow but sure. Would continue Neupogen for the next day or two at current dosing. I suspect this gentleman will remain myelosuppressed for quite some time based on his heavy pretreatment. Perhaps he will need to be treated every 28-day cycle in lieu of 21, which is the current standard. Nonetheless, I agree with medical management and have nothing further to add at this time. We will continue to follow the patient periodically during hospital stay. FELIX
[2019-12-13] MEDS ORDERED: DOXYCYCLINE HYCLATE 100 MG CAP PO SCH (11:00)
[2019-12-13] MEDS ORDERED: ALBUTEROL HFA 8 GM INHALER INH PRN (13:40)
[2019-12-13] MEDS ORDERED: IPRATROPIUM BROMIDE HFA INHALER INH PRN (13:40)
[2019-12-13] MEDS ORDERED: VANCOMYCIN HCL 1,500 MG in SODIUM CHLORIDE 0.9% 500 ML IV SCH (14:00)
[2019-12-13] MEDS ORDERED: LIDOCAINE HCL VISCOUS SOLN 2% 15 ML UDC MT PRN (16:25)
[2019-12-13] MEDS: ACETAMINOPHEN 500 MG TAB PO SCH ×2 (17:31→21:05)
--- NOTE | 2019-12-13 21:25 | Hospitalist Progress Note ---
Date of Service December 13, 2019 Assessment & Plan (1) Sepsis: 2nd LLL pneumonia - resolving nicely with IV/PO antibiotic therapy blood cx's remain negative COVID-19 PCR negative (2) LLL pneumonia: This is the likely source of neutropenic fever and sepsis. Possible gram negative pneumonia - continue cefepime today; d/c after tonight's dose, then change to oral levaquin tomorrow. can d/c doxy since levaquin has atypical coverage. d/c vanco. blood cx's negative to date. COVID-19 PCR negative thus d/c airborne isolation. (3) Rhinovirus infection: [employer] resp panel with enterovirus/rhinovirus. Suspect that patient had this virus to start with, then developed bacterial superinfection/pneumonia of LLL in the setting of his immunocompromised state/neutropenia. Treat LLL pneumonia as above. (4) Neutropenic fever: 2nd to LLL pneumonia - see above - and/or rhinovirus infection. fever curve improving. COVID-19 negative. blood/urine cx's thus far negative. throat cx negative. (5) Pancytopenia due to chemotherapy: Cont Neupogen 480 mcg SQ QAM due to severe neutropenia. Daily CBC w/ diff. Neutropenic and airborne precautions. ?transfusion reaction yesterday - transfusion reaction panel negative If Hb drops further tomorrow then transfuse once again (6) CLL (chronic lymphocytic leukemia): Appreciate Dr Morillo's consult/recs. s/p R-CHOP about 10 days ago. should be at verito of low counts. daily CBC neupogen (7) Chronic kidney disease: stage 2 Cr stable BMP am (8) HTN (hypertension): cont Lisinopril 5mg PO daily (9) Hypothyroid: Continue home dose levothyroxine TSH 10 days ago was wnl (10) DM type 2 (diabetes mellitus, type 2): holding oral agents cont novolog sliding scale BSGs acceptable (11) Colostomy present: h/o rectal perforation (12) Mucositis: magic mouthwash QID schedule tylenol TID add viscous lidocaine prn (13) DVT prophylaxis: Thrombocytopenia - severe avoid chemical anticoagulation SCDs alone ambulation updated extensively yesterday and today hopefully d/c home tomorrow Admission and Anticipated Discharge Date Admission Date: December 10, 2019 Anticipated date of discharge: 12/14/19 Subjective patient feeling better today. has a little bit more energy and better appetite. throat and mouth still quite sore which are limiting his ability to eat. cough present but mild and nonproductive. no dyspnea. stool in ostomy is loose/watery. no chest pain or abd pain. COVID testing returned negative today; airborne isolation stopped. Review of Systems Constitutional: no chills Cardiovascular: no orthopnea, no paroxysmal nocturnal dyspnea and no edema Gastrointestinal: no nausea and no vomiting Physical Exam Constitutional: + frail appearing; no acute distress and no altered mental status looks better today ENMT: Mouth: + oral mucosal abnormality (mucositis) Respiratory: Auscultation: + diminished lung sounds (both bases, worse on left ) and + crackles (minimal - left base (very faint)); no wheezes Cardiovascular: Rate/Rhythm: regular rate and regular rhythm Heart Sounds: normal S1 and normal S2; no murmur Vessels: posterior tibial pulses present and dorsalis pedis pulses present; no JVD Extremities: no edema Gastrointestinal (Abdomen): normal bowel sounds, soft, nontender, no hepatosplenomegaly Skin: + pallor; no rashes Psychiatric: Orientation: alert and oriented x 3 Results & Data Results & Data ([facility]) Vital Signs (Past 12 Hours) Vital Signs Temp Pulse Resp BP BP Pulse Ox 12/13/19 19:51 37.1 C 85 19 118/67 97 12/13/19 17:15 36.7 C 79 18 132/70 96 12/13/19 10:53 37.0 C 75 18 129/67 96 12/13/19 10:49 87 18 96 12/13/19 10:06 37 C Laboratory Results Laboratory Results - last 24 hr 12/10/19 12/11/19 12/12/19 19:35 21:23 21:28 WBC RBC Hgb Hct MCV MCH MCHC RDW Std Deviation RDW Coeff of Leonela Plt Count MPV Immature Gran % (Auto) Neut % (Auto) Lymph % (Auto) Izard % (Auto) Eos % (Auto) Baso % (Auto) Neut # (Auto) Lymph # (Auto) Izard # (Auto) Eos # (Auto) Baso # (Auto) Immature Gran # (Auto) Ovalocytes Sodium Potassium Chloride Carbon Dioxide Anion Gap BUN Creatinine Est Cr Clr Drug Dosing Est GFR ( Amer) Est GFR (Non-Af Amer) BUN/Creatinine Ratio Glucose POC Glucose Calcium Vancomycin Trough 13.3 SARS-CoV-2 RNA (RT-PCR) NEGATIVE Transfusion React Date 12/11/2019 Transfusion React Time 2054 Tx React Symptoms FEVER, NAUSEA Reaction Clerical Check None Found Lab Clerical Err Check None Found React Component Return PCLRIRR Volume Returned 0 Pre-Trans Blood Type O NEGATIVE Pre-Trans Vis Hemolysis No Pre-Trans THIEN Negative Pre-Trans THIEN IgG Neg Pre-Trans THIEN Poly Neg Pre-Trans THIEN C3b, C3d Neg Post-Trans Blood Type O NEGATIVE Post-Tx Visible Hemolys No Post-Trans THIEN Negative Post-Trans THIEN IgG Neg Post-Trans THIEN Poly Neg Post-Trans THIEN C3b, C3d Neg Post-Trans Ur Hemoglobin 0-4 RBC Reaction Path Interpret Transfusion Serv Com 12/13/19 12/13/19 12/13/19 05:43 05:43 07:47 WBC 0.88 L* RBC 2.12 L Hgb 6.8 L* Hct 20.2 L* MCV 95.3 MCH 32.1 MCHC 33.7 RDW Std Deviation 57.9 H RDW Coeff of Leonela 16.3 H Plt Count 31 L MPV 11.4 H Immature Gran % (Auto) 1.1 Neut % (Auto) 4.6 Lymph % (Auto) 90.9 Izard % (Auto) 2.3 Eos % (Auto) 1.1 Baso % (Auto) 0.0 Neut # (Auto) 0.04 L* Lymph # (Auto) 0.80 L Izard # (Auto) 0.02 L Eos # (Auto) 0.01 Baso # (Auto) 0.00 Immature Gran # (Auto) 0.01 Ovalocytes 1+ Sodium 140 Potassium 3.6 Chloride 110 H Carbon Dioxide 21 Anion Gap 9.0 BUN 20 H Creatinine 1.46 H Est Cr Clr Drug Dosing 64.5 Est GFR ( Amer) 58.5 Est GFR (Non-Af Amer) 50.5 BUN/Creatinine Ratio 13.5 Glucose 155 H POC Glucose 183 H Calcium 7.8 L Vancomycin Trough SARS-CoV-2 RNA (RT-PCR) Transfusion React Date Transfusion React Time Tx React Symptoms Reaction Clerical Check Lab Clerical Err Check React Component Return Volume Returned Pre-Trans Blood Type Pre-Trans Vis Hemolysis Pre-Trans THIEN Pre-Trans THIEN IgG Pre-Trans THIEN Poly Pre-Trans THIEN C3b, C3d Post-Trans Blood Type Post-Tx Visible Hemolys Post-Trans THIEN Post-Trans THIEN IgG Post-Trans THIEN Poly Post-Trans THIEN C3b, C3d Post-Trans Ur Hemoglobin Reaction Path Interpret Transfusion Serv Com 12/13/19 12/13/19 12/13/19 12:17 16:51 20:46 WBC RBC Hgb Hct MCV MCH MCHC RDW Std Deviation RDW Coeff of Leonela Plt Count MPV Immature Gran % (Auto) Neut % (Auto) Lymph % (Auto) Izard % (Auto) Eos % (Auto) Baso % (Auto) Neut # (Auto) Lymph # (Auto) Izard # (Auto) Eos # (Auto) Baso # (Auto) Immature Gran # (Auto) Ovalocytes Sodium Potassium Chloride Carbon Dioxide Anion Gap BUN Creatinine Est Cr Clr Drug Dosing Est GFR ( Amer) Est GFR (Non-Af Amer) BUN/Creatinine Ratio Glucose POC Glucose 180 H 248 H 193 H Calcium Vancomycin Trough SARS-CoV-2 RNA (RT-PCR) Transfusion React Date Transfusion React Time Tx React Symptoms Reaction Clerical Check Lab Clerical Err Check React Component Return Volume Returned Pre-Trans Blood Type Pre-Trans Vis Hemolysis Pre-Trans THIEN Pre-Trans THIEN IgG Pre-Trans THIEN Poly Pre-Trans THIEN C3b, C3d Post-Trans Blood Type Post-Tx Visible Hemolys Post-Trans THIEN Post-Trans THIEN IgG Post-Trans THIEN Poly Post-Trans THIEN C3b, C3d Post-Trans Ur Hemoglobin Reaction Path Interpret Transfusion Serv Com PG Care Time/CCT Total # of Minutes Spent Total Time Spent with Patient: Total time spent is greater than 50% in coordination of care (as documented) at patient's floor/unit and/or counseling patient: Coding Level of Care Code 21217 Subseq Hosp Care Lvl 2 Diagnoses Sepsis A41.9 LLL pneumonia J18.9 Rhinovirus infection B34.8 Neutropenic fever D70.9; R50.81 Pancytopenia due to chemotherapy D61.810 CLL (chronic lymphocytic leukemia) C91.90 Chronic kidney disease N18.9 Chronic kidney disease stage: unspecified stage HTN (hypertension) I10 Hypertension type: essential hypertension Hypothyroid E03.9 DM type 2 (diabetes mellitus, type 2) E11.9 Colostomy present Z93.3 Mucositis K12.30 DVT prophylaxis Z29.9 (1) Chronic kidney disease Chronic kidney disease stage: unspecified stage Qualified Code(s): N18.9 - Chronic kidney disease, unspecified (2) HTN (hypertension) Hypertension type: essential hypertension Qualified Code(s): I10 - Essential (primary) hypertension
[2019-12-14] MEDS: CEFEPIME 2,000 MG in SYRINGE 7.5 ML IV SCH (02:36)
[2019-12-14] MEDS: NYSTATIN 30 ML, DEXAMETHASONE CONC 3.75 MG, DiphenhydrAMINE Syrup 300 MG, ORA-SWEET SYR... PO SCH ×2 (02:59→12:50)
[2019-12-14] MEDS ORDERED: VANCOMYCIN TROUGH ONE (05:30)
[2019-12-14 06:30] LABS: Hematocrit (blood only) 20.1 % (42-52); Hemoglobin 6.7 g/dL (14.0-18.0); Mean Corpuscular Hemoglobin 32.1 pg (25-34); Mean Corpuscular Hgb Conc 33.3 g/dL (32-36); Mean Corpuscular Volume 96.2 fL (80-100); Mean Platelet Volume 10.9 fL (7.4-10.4); Platelet Count 38 K/uL (130-400); RDW Coefficient of Variation 15.9 % (11.5-14.5); RDW Standard Deviation 56.3 fL (36.4-46.3); Red Blood Count 2.09 M/uL (4.7-6.1); White Blood Count 0.96 K/uL (4.8-10.8)
[2019-12-14 06:56] LABS: BUN Creatinine Ratio 13.1 (10-20); Calcium 8.1 mg/dl (8.5-10.1); Creatinine Clr Calc Pharmacy 64.6 ml/min; Est GFR (Non-African American) 51.8; Potassium 3.7 mmol/L (3.5-5.1)
[2019-12-14 07:05] LABS: Eosinophils # (auto) 0.01 K/uL (0-0.5); Lymphocytes # (auto) 0.89 K/uL (1.2-3.4); Lymphocytes % (auto) 92.7 %; Monocytes # (auto) 0.03 K/uL (0.11-0.59); Monocytes % (auto) 3.1 %; Neutrophils # (auto) 0.03 K/uL (1.4-6.5); Neutrophils % (auto) 3.2 %
[2019-12-14] MEDS ORDERED: SODIUM CHLORIDE 0.9% 250 ML IV PRN (08:20)
[2019-12-14] MEDS: LACTOBACILLUS ACIDOPHILUS (FLORANEX) TAB PO SCH (08:38)
[2019-12-14] MEDS: IPRATROPIUM BROMIDE NASAL SPRAY 0.06% 15ML NAE SCH (08:39)
[2019-12-14] MEDS: lisinopriL 5 MG TAB PO SCH (08:43)
[2019-12-14] MEDS: OMEGA-3 (PURIFIED FISH OIL) 1 GM CAP PO SCH (08:43)
[2019-12-14] MEDS: ASPIRIN 81 MG ECTAB PO SCH (08:44)
[2019-12-14] MEDS: ATORVASTATIN 40 MG TAB PO SCH (08:44)
[2019-12-14] MEDS: CYANOCOBALAMIN 500 MCG TABLET (VITAMIN B-12) PO SCH (08:44)
[2019-12-14] MEDS: BENZONATATE 100 MG CAPSULE PO SCH (08:44)
[2019-12-14] MEDS: ACETAMINOPHEN 500 MG TAB PO SCH (08:45)
[2019-12-14] MEDS: MULTIVITAMIN TAB PO SCH (08:45)
[2019-12-14] MEDS: MAGNESIUM OXIDE 400 MG TAB PO SCH (08:45)
[2019-12-14] MEDS: INSULIN ASPART 100 UNITS/ML 3 ML PEN SC SCH ×2 (08:47→12:50)
[2019-12-14] MEDS ORDERED: levoFLOXacin 750 MG TAB PO SCH (11:00)
--- NOTE | 2019-12-14 11:51 | Discharge Summary ---
Date of Service date of admission - December 10, 2019 date of discharge - December 14, 2019 Admission HPI Per Admitting Provider Alphonso Gray is a 64-year-old male wtih CLL undergoing chemotherapy who presents to the emergency room with fever that started today. The patient reports he has 2 thermometers (forehead and ear) at home which measure different temperatures and he is unsure whether he had a temperature yesterday, however felt his normal self (fatigued with some shortness of breath) after having chemotherapy. He did notice a definitive fever today > 100.4 and given his neutropenia he was advised to come [facility] the [facility]. He has ongoing fatigue and shortness of breath, however these are at his baseline after receiving chemotherapy. He notes a dry cough which is possibly worse than usual, but usually comes on with his chronic postnasal drip. Occasional nausea but this too is not unusual for him. Otherwise no dysuria, flank pain, change in urine frequency (although he notes usually this changes with chemotherapy)/smell/color, abdominal pain, nausea or vomiting. Principal Diagnosis sepsis 2nd to LLL pneumonia in setting of severe neutropenia Discharge Exam Constitutional + frail appearing; no acute distress and no altered mental status ENMT Mouth: + oral mucosal abnormality (mucositis) Respiratory Auscultation: + diminished lung sounds (Left base ) and + crackles (minimal - le ft base ); no wheezes Cardiovascular Rate/Rhythm: regular rate and regular rhythm Heart Sounds: normal S1 and normal S2; no murmur Vessels: posterior tibial pulses present and dorsalis pedis pulses present; no JVD Extremities: no edema Chest (Breasts) Additional Comments: left upper chest a-port clean, no swelling, no tenderness Gastrointestinal (Abdomen) normal bowel sounds, soft, nontender, no hepatosplenomegaly colostomy in place with normal-appearing stool Skin + pallor; no rashes Psychiatric Orientation: alert and oriented x 3 Discharge Data Allergies Allergy/AdvReac Type Severity Reaction Status Date / Time ibrutinib [From Imbruvica] Allergy Intermediate LOOKED Verified 12/10/19 16:30 LIKE A LEOPARD SPOTTED ALL OVER NSAIDS (Non-Steroidal AdvReac Unknown DUE TO Verified 12/10/19 16:30 Anti-Inflamma DECREASED KIDNEY FUNCTION Consultations Oncology - [facility] Hospital Course (1) Sepsis: 2nd LLL pneumonia - resolve with IV/PO antibiotic therapy blood cx's remained negative while hospitalized COVID-19 PCR negative remained hemodynamically stable throughout the hospitalization (2) LLL pneumonia: This was the likely source of his neutropenic fever and sepsis. Possible gram negative pneumonia - received cefepime while here and was transitioned to PO levaquin thereafter. Will complete course of levaquin at home. Never had O2 requirement while hospitalized. blood cx's negative while here. COVID-19 PCR negative. [employer] Respiratory panel was positive for enterovirus/rhinovirus. (3) Rhinovirus infection: [employer] resp panel with enterovirus/rhinovirus. Suspect that patient had this virus to start with, then developed bacterial superinfection/pneumonia of LLL in the setting of his immunocompromised state/neutropenia. Treated LLL pneumonia as above. (4) Neutropenic fever: 2nd to LLL pneumonia - see above - and/or rhinovirus infection. fevers resolved over time. COVID-19 negative. blood/urine cx's negative. throat cx negative. (5) Pancytopenia due to chemotherapy: Received Neupogen daily while hospitalized as recommended by Dr Morillo. Received 3 units of irradiated blood while hospitalized. During one of the units he spiked a fever and there was some ? of transfusion reaction. Transfusion reaction panel was negative however; thus fever was due to his illness. Discharge hemoglobin = 6.7 (but this was prior to a single unit of PRBCs given on day of discharge). Discharge platelet count = 38. (6) CLL (chronic lymphocytic leukemia): Followed by Dr Kolton Morillo at the [facility]. s/p R-CHOP about 10 days prior to admission. Pancytopenia was likely at post-chemo verito. (7) Chronic kidney disease: stage 2 Cr stable during the visit discharge Cr 1.4 (8) HTN (hypertension): cont Lisinopril 5mg PO daily (9) Hypothyroid: Continue home dose levothyroxine TSH just prior to admission was normal (10) DM type 2 (diabetes mellitus, type 2): control adequate while hospitalized will resume PO agents at discharge (11) Colostomy present: h/o rectal perforation with colostomy formation; new issues while hospitalized (12) Mucositis: magic mouthwash QID schedule tylenol TID 2nd to severe neutropenia Total Time Total Time Spent Total Time Spent (In Minutes): 50 Total Time Includes: Examination of the Patient, Discharge Planning, Medication Reconciliation and Communication With Other Providers Discharge Plan Discharge Items Patient Disposition: Home - Self-Care Reason For Visit: SEVERE NEUTROPENIA; SEPSIS Discharge Diagnosis: 1. sepsis due to left sided pneumonia 2. severe neutropenia from CLL and chemotherapy 3. severe anemia 4. rhinovirus infection; COVID testing negative Activity: As commented below Activity Comment: gradually increase your activities over the next 5-7 days Non-emergency contact: Primary Care Provider and Oncologist Call non-emergency contact if: you have any medication questions, your symptoms worsen and you have a fever Follow-up/Referrals: Vinnie Crawford MD [Primary Care Provider] - 12/20/19 2:45 pm (Please, follow up with Dr. Vinnie Crawford's associate, Mason Love PA-C, on FridayDecember 19 at 2:45 pm. *If you need to change this appointment, call their office at [phone].) Kolton Morillo V., DO [Physician] - (Please, follow up with Dr. Morillo within 5-7 days. *A nurse from the office will call you with the appointment details. If you have any questions, call the office at [phone].) Diet: Carb Consistent or DM2 Diet Texture: Easy to Chew Addtl Attending Provider Instructions: You were seen and treated for severe neutropenic fever/sepsis. COVID-19 testing was negative. Blood cultures and urine culture were negative. Chest x-rays confirmed a left lower lobe pneumonia. This was the likely cause of your illness/fevers. A respiratory panel also showed rhinovirus infection which also likely contributed to your illness. Your fevers ultimately resolved with IV antibiotics. You did require blood transfusion while hospitalized. You did NOT have a reaction to blood. At time of discharge your platelet count is still quite low in the 30s; do not take [id number] anti-inflammatory pills (motrin, ibuprofen, etc). Tylenol IS Ok. You have severe neutropenia (low white cells that fight infection)- wear a mask at all times when outside your home, do not invite visitors to your home especially if they are ill, etc. You are also anemic (low red cells). Dr Morillo will continue to follow all of this. Recommendations - 1. For your throat pain - magic mouthwash 5cc before meals/bedtime as needed; swish/swallow. 2. Take 3 more days of antibiotic for your pneumonia. Start this TOMORROW. Levaquin (levofloxacin) 750mg daily for 3 days. 3. Continue to practice COVID-19 precautions - masking, social distancing, etc. Follow-up - see Dr Morillo or Yolanda Hightower within 1 week at the [facility]. Contact Dr Crawford's office for any non-oncological needs. Return to [facility] if - * you have fever over 100.4 degrees * you have worsening shortness of breath or chest pain * you have severe/excessive output from your colostomy * any other concerns Pending Studies at Discharge: No Stand-Alone Forms: My [facility], Smoking Cessation Medications and DC Order Prescriptions: New Magic Mouthwash 300 mL mouthwash 5 ml mucous membrane ACHS PRN (Reason: swish/swallow) Qty: 300 RF: 1 Continued lisinopril 5 mg tablet 5 mg PO QAM Qty: 90 RF: 3 atorvastatin 40 mg tablet 40 mg PO QAM Qty: 90 RF: 3 glimepiride 2 mg tablet 4 mg PO QAM Qty: 60 RF: 6 (DME) blood sugar diagnostic [Axxess PharmaTouch Ultra Blue Test Strip] Strip See Rx Instructions .ROUTE .MEDSUPPLY Qty: 300 RF: 3 multivitamin Tablet 1 tab PO QAM RF: 0 cyanocobalamin (vitamin B-12) 1,000 mcg Tablet 1,000 mcg PO QAM RF: 0 coenzyme Q10 [Co Q-10] 100 mg Capsule 100 mg PO QAM RF: 0 aspirin 81 mg Tablet,Delayed Release (Dr/Ec) 81 mg PO QAM RF: 0 ondansetron HCl 8 mg tablet 8 mg PO Q8H PRN (Reason: Nausea) RF: 0 prednisone 20 mg tablet See Rx Instructions .ROUTE .COMPLEX RF: 0 prochlorperazine maleate 10 mg tablet 10 mg PO Q6H PRN (Reason: Nausea) RF: 0 levothyroxine 50 mcg tablet See Rx Instructions .ROUTE .COMPLEX RF: 0 acetaminophen [Tylenol] 325 mg capsule 650 mg PO Q6H PRN (Reason: Fever Or Pain) RF: 0 hydrocortisone 2.5 % cream 1 applic TOPICAL BID PRN (Reason: Eczema) RF: 0 omega [id number]-fish oil [Fish Oil] 1,000 mg (120 mg-180 mg) Capsule 1 cap PO QAM RF: 0 magnesium 250 mg Tablet 250 mg PO QAM RF: 0 Digestive Advantage Prob Gummy 250 million cell Tablet,Chewable 1 cell PO QAM RF: 0 Discharge Orders: Discharge Order (Routine); Ordered 12/14/19 Ordered By: Saul Reddy Admission Data Admit Date/Time: 12/10/19 19:21 Attending Provider: Saul Reddy Admit Provider: Saul Ocasio Primary Care Provider: Vinnie Crawford Other Providers: Saul Ocasio ; Kolton Morillo V. Other Interventions: Discharge Summary Assessment (RN) Last Done: 12/14/19 11:58 DC Date/Time DO NOT enter until pt leaves facility: 12/14/19 13:19 Coding Level of Care Code D/C Day Management >30 mins Diagnoses Sepsis A41.9 LLL pneumonia J18.9 Rhinovirus infection B34.8 Neutropenic fever D70.9; R50.81 Pancytopenia due to chemotherapy D61.810 CLL (chronic lymphocytic leukemia) C91.90 Chronic kidney disease N18.9 Chronic kidney disease stage: unspecified stage HTN (hypertension) I10 Hypertension type: essential hypertension Hypothyroid E03.9 DM type 2 (diabetes mellitus, type 2) E11.9 Colostomy present Z93.3 Mucositis K12.30
[2019-12-14] MEDS: HEPARIN 100 UNIT/ML 5ML FLUSH FLUSH PRN (13:04)
== END 2019-12-14 13:19 | disposition home or self-care (01) | DRG 871 ==
LOC: ED 13:55 → SUATTDRO 19:21 → 2N 19:21

== ENCOUNTER 2019-12-30 11:09 | Inpatient (IN) ==
[2019-12-30] MEDS ORDERED: ACETAMINOPHEN 500 MG TAB PO STA (11:24)
[2019-12-30] MEDS ORDERED: SODIUM CHLORIDE 0.9% 1000ML 1,000 ML IV ONE ×2 (11:24→13:54)
--- NOTE | 2019-12-30 11:49 | Emergency Department Note ---
Impression & Plan Fever and neutropenia, Pneumonia, Hypomagnesemia ED Provider Note NAME: PRISCILLA PEREZ AGE: 64 SEX: M : 1955 ARRIVES VIA: Walk-In INFORMANT: Patient, ED PROVIDER(S): Rolo Delacruz DO CHIEF COMPLAINT: Fever HPI: The patient is a 64-year-old male who presented to the emergency department for an evaluation of fever. The patient states he noticed fever over the last few days. It became worse this morning. He did not take any medication for fever today. He is 2 weeks status post chemotherapy for leukemia. The patient has had no cough. He denies having any abdominal pain. He has had some loose bowel movements recently but he states he normally has this related to his chemotherapy. He denies having any cough. He is had no recent travel. He has no dysuria or frequency. The patient states that he was last seen by his oncologist when he got chemotherapy. He was not seen by his primary care physician or his oncologist today for the symptoms. The patient states his symptoms are moderate. ROS: See above HPI for pertinent positives & negatives. A total of 10 systems reviewed and were otherwise negative. PAST MEDICAL HISTORY: See Below PAST SURGICAL HISTORY: See Below FAMILY HISTORY: See Below SOCIAL HISTORY: See Below HOME MEDICATIONS: See Below ALLERGIES: See Below VITALS: See Below PHYSICAL EXAMINATION: GENERAL: The patient is awake and alert. He is somewhat anxious appearing. EYES: The conjunctivae are pale. The pupils are round and reactive. EARS, NOSE, MOUTH AND THROAT: The nose is without any evidence of any deformity. Mucous membranes are moist. Tongue is midline. NECK: The neck is nontender and supple. RESPIRATORY: Diminished breath sounds are noted at both bases. There is no tachypnea or conversational dyspnea. CARDIOVASCULAR: Tachycardic rate with regular rhythm was noted. There is no definite murmur. GASTROINTESTINAL: The abdomen is soft. Abdomen is nontender. MUSCULOSKELETAL/EXTREMITIES: There is no evidence of gross deformity full range of motion is noted in the hips and shoulders. SKIN: There is no obvious evidence of any rash. Skin was warm pale and dry. Trace pedal edema was noted bilaterally. NEUROLOGIC: Patient is awake alert and oriented to person place and situation. The patient's strength is symmetric. There is no facial droop. The patient does have some difficulty with word finding. MEDICAL DECISION MAKING: The patient is a 64-year-old male who presented to the emergency department for an evaluation of fever. The patient did not have any specific complaints. Chest x-ray did appear to be consistent with possible infiltrate. He is currently receiving chemotherapy for leukemia and was found to have significant neutropenia today. I discussed the patient's laboratory and radiographic studies with him. Given his findings I also discussed his case with the on-call [facility] hospitalist group. They have agreed to evaluate the patient in the emergency department for further management and disposition. The patient was treated with IV fluids and IV antibiotics. Triage Nursing notes reviewed. Prior medical records reviewed Vital Signs: reviewed and remarkable for tachycardia and fever. Differential diagnosis: Viral syndrome, otitis, pharyngitis, pneumonia, influenza, meningitis, urinary tract infection, sepsis, bacteremia, as well as other pathologies. ER treatment provided: See below Diagnostics interpreted by me: ECG: EKG was obtained in the emergency department. My interpretation is sinus tachycardia at 113 bpm. LVH was noted by voltage criteria. There was lateral ST depressions noted. This was compared to a tracing from December 092019. Ischemic changes are new. Cardiac Monitoring: An order was placed for continuous cardiac monitoring. The monitor shows a rate of 110 with sinus tachycardia rhythm. Laboratory studies: As stated above and show below. Imaging studies: See below Consultation(s): I discussed this case with the on-call [facility] hospitalist. They will evaluate the patient in the emergency department for further management and dis position. Past Med/Surg History Medical History (Updated 12/30/19 @ 15:17 by Rolo Delacruz DO) Anemia Cataract, left eye Chronic kidney disease STAGE III. Baseline Cr 1.6-1.8. CLL (chronic lymphocytic leukemia) following w/ Dr. Morillo Diabetes mellitus, type 2 Hyperlipidemia Hypertension Hypothyroidism Lower extremity edema Lymphadenopathy Presence of colostomy Stroke 2015--SPEECH IS SLIGHTLY SLOWER Tinnitus of both ears Surgical History Anal abscess (~11/2018) Awareness under anesthesia H/O right cataract extraction History of tooth extraction WISDOM TEETH History of vascular access device L CHEST S/P biopsy (~2019) Bone biopsy x 2 S/P lymph node biopsy (11/11/19) Incisional Biopsy Left Axillary Node Dr. 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 Beliefs That Will Affect Care: None marital status: Current Living Situation: Spouse Current Living Situation Comment: [facility] How many Children do You have: 2 Feels Safe at Home: Yes Allergies Allergies Allergy/AdvReac Type Severity Reaction Status Date / Time ibrutinib [From Imbruvica] Allergy Intermediate LOOKED Verified 12/30/19 11:58 LIKE A LEOPARD SPOTTED ALL OVER NSAIDS (Non-Steroidal AdvReac Unknown DUE TO Verified 12/30/19 11:58 Anti-Inflamma DECREASED KIDNEY FUNCTION Home Meds Home Medications Medication Instructions Recorded Confirmed coenzyme Q10 [Co Q-10] 100 mg PO QAM 02/17/18 12/30/19 cyanocobalamin (vitamin B-12) 1,000 mcg PO QAM 02/17/18 12/30/19 multivitamin 1 tab PO QAM 02/17/18 12/30/19 Digestive Advantage Prob Gummy 1 cell PO QAM 07/27/19 12/30/19 hydrocortisone 1 applic TOPICAL BID PRN 07/27/19 12/30/19 magnesium 250 mg PO QAM 07/27/19 12/30/19 omega [id number] oil [Fish Oil] 1 cap PO QAM 07/27/19 12/30/19 aspirin 81 mg PO QAM 11/04/19 12/30/19 acetaminophen [Tylenol] 650 mg PO Q6H PRN 12/10/19 12/30/19 levothyroxine 25 - 50 mcg PO QAM 12/10/19 12/30/19 ondansetron HCl 8 mg PO Q8H PRN 12/10/19 12/30/19 prochlorperazine maleate 10 mg PO Q6H PRN 12/10/19 12/30/19 ciprofloxacin HCl 500 mg PO Q12H 12/22/19 12/30/19 valacyclovir 500 mg PO PM 12/30/19 12/30/19 Previous Rx's Medication Instructions Recorded lisinopril 5 mg tablet 5 mg PO QAM #90 tab 03/15/19 atorvastatin 40 mg tablet 40 mg PO QAM #90 tab 07/15/19 glimepiride 2 mg tablet 4 mg PO QAM #60 tab 09/16/19 blood sugar diagnostic #300 ea 12/10/19 Magic Mouthwash 5 ml MUCOUS MEMBRANE ACHS PRN #300 12/14/19 ml Results & Data (ED) Vital Signs Vital Signs - 24 hr 12/30/19 11:14 12/30/19 11:49 12/30/19 11:50 Temperature 39.5 C H Temperature Source Oral Pulse Rate 121 H Respiratory Rate 20 18 Respiratory Effort / Characteristics Spontaneous Blood Pressure 123/71 Blood Pressure Mean 88 Pulse Oximetry 94 97 97 Oxygen Delivery Method Room Air Room Air Room Air Sepsis Recent Fever Within 48 Hours Yes Sepsis New/Unexplained Change in Mental Status N/A Sepsis Action Taken by Nursing Physician Notified 12/30/19 11:57 12/30/19 12:00 12/30/19 12:30 Temperature Temperature Source Pulse Rate 108 H 106 H 107 H Respiratory Rate 23 24 27 H Respiratory Effort / Characteristics Blood Pressure 142/75 H 145/68 H 124/63 Blood Pressure Mean 87 89 68 Pulse Oximetry 96 Oxygen Delivery Method Room Air Sepsis Recent Fever Within 48 Hours Sepsis New/Unexplained Change in Mental Status Sepsis Action Taken by Nursing 12/30/19 12:31 12/30/19 13:00 12/30/19 13:01 Temperature Temperature Source Pulse Rate 109 H 110 H 109 H Respiratory Rate 22 29 H 20 Respiratory Effort / Characteristics Blood Pressure 114/51 L Blood Pressure Mean 64 Pulse Oximetry Oxygen Delivery Method Sepsis Recent Fever Within 48 Hours Sepsis New/Unexplained Change in Mental Status Sepsis Action Taken by Nursing 12/30/19 13:15 12/30/19 13:31 12/30/19 13:34 Temperature 38.7 C H Temperature Source Oral Pulse Rate 101 H 103 H Respiratory Rate 21 17 Respiratory Effort / Characteristics Blood Pressure 102/54 L Blood Pressure Mean 66 Pulse Oximetry Oxygen Delivery Method Sepsis Recent Fever Within 48 Hours Sepsis New/Unexplained Change in Mental Status Sepsis Action Taken by Nursing 12/30/19 14:00 12/30/19 14:01 12/30/19 14:30 Temperature Temperature Source Pulse Rate 93 H 93 H 93 H Respiratory Rate 26 H 27 H 27 H Respiratory Effort / Characteristics Blood Pressure 101/48 L 107/63 Blood Pressure Mean 53 81 Pulse Oximetry Oxygen Delivery Method Sepsis Recent Fever Within 48 Hours Sepsis New/Unexplained Change in Mental Status Sepsis Action Taken by Nursing 12/30/19 14:31 Temperature Temperature Source Pulse Rate 95 H Respiratory Rate 28 H Respiratory Effort / Characteristics Blood Pressure Blood Pressure Mean Pulse Oximetry Oxygen Delivery Method Sepsis Recent Fever Within 48 Hours Sepsis New/Unexplained Change in Mental Status Sepsis Action Taken by [facility] Medications Current Medication List: was personally reviewed by me Laboratory Data Attestation: I reviewed the patient's lab results. Result diagrams: 12/30/19 11:40 12/30/19 11:40 Lab Results 12/30/19 12/30/19 12/30/19 Range/Units 11:40 11:40 11:40 WBC 2.90 L (4.8-10.8) K/uL RBC 2.71 L (4.7-6.1) M/uL Hgb 8.4 L (14.0-18.0) g/dL Hct 24.7 L (42-52) % MCV 91.1 (80-100) fL MCH 31.0 (25-34) pg MCHC 34.0 (32-36) g/dL RDW Std Deviation 49.8 H (36.4-46.3) fL RDW Coeff of Leonela 15.2 H (11.5-14.5) % Plt Count 70 L (130-400) K/uL MPV 9.9 (7.4-10.4) fL Immature Gran % (Auto) 0.0 % Neut % (Auto) 0.0 % Lymph % (Auto) 100.0 % [place] % (Auto) 0.0 % Eos % (Auto) 0.0 % Baso % (Auto) 0.0 % Neut # (Auto) 0.00 L* (1.4-6.5) K/uL Lymph # (Auto) 2.90 (1.2-3.4) K/uL [place] # (Auto) 0.00 L (0.11-0.59) K/uL Eos # (Auto) 0.00 (0-0.5) K/uL Baso # (Auto) 0.00 (0-0.2) K/uL Immature Gran # (Auto) 0.00 (0.00-0.02) K/uL Smudge Cells Present Anisocytosis Present Ovalocytes 1+ PT 12.0 (9.0-12.0) Seconds INR 1.1 (0.9-1.1) APTT 34.0 H (21.0-31.0) Seconds PTT Ratio 1.2 Sodium 134 L (136-145) mmol/L Potassium 4.2 (3.5-5.1) mmol/L Chloride 102 (98-107) mmol/L Carbon Dioxide 27 (21-32) mmol/L Anion Gap 6.0 (3-11) BUN 26 H (7-18) mg/dl Creatinine 1.27 (0.6-1.4) mg/dl Est Cr Clr Drug Dosing 71.2 ml/min Est GFR ( Amer) 69.2 Est GFR (Non-Af Amer) 59.7 BUN/Creatinine Ratio 20.8 H (10-20) Glucose 271 H (70-99) mg/dl Lactate (0.4-2.0) mmol/L Calcium 8.3 L (8.5-10.1) mg/dl Magnesium 1.3 L (1.8-2.4) mg/dl Total Bilirubin 0.7 (0.2-1) mg/dl AST 13 L (15-37) U/L ALT 30 (12-78) U/L Alkaline Phosphatase 88 (45-117) U/L Troponin I < 0.015 (0-0.045) ng/ml Total Protein 5.6 L (6.4-8.2) gm/dl Albumin 2.5 L (3.4-5.0) gm/dl Globulin 3.1 (2.5-4.0) gm/dl Albumin/Globulin Ratio 0.8 L (0.9-2) Procalcitonin (0-0.5) ng/ml Specimen Hemolysis 12/30/19 12/30/19 Range/Units 11:40 11:40 WBC (4.8-10.8) K/uL RBC (4.7-6.1) M/uL Hgb (14.0-18.0) g/dL Hct (42-52) % MCV (80-100) fL MCH (25-34) pg MCHC (32-36) g/dL RDW Std Deviation (36.4-46.3) fL RDW Coeff of Leonela (11.5-14.5) % Plt Count (130-400) K/uL MPV (7.4-10.4) fL Immature Gran % (Auto) % Neut % (Auto) % Lymph % (Auto) % [place] % (Auto) % Eos % (Auto) % Baso % (Auto) % Neut # (Auto) (1.4-6.5) K/uL Lymph # (Auto) (1.2-3.4) K/uL [place] # (Auto) (0.11-0.59) K/uL Eos # (Auto) (0-0.5) K/uL Baso # (Auto) (0-0.2) K/uL Immature Gran # (Auto) (0.00-0.02) K/uL Smudge Cells Anisocytosis Ovalocytes PT (9.0-12.0) Seconds INR (0.9-1.1) APTT (21.0-31.0) Seconds PTT Ratio Sodium (136-145) mmol/L Potassium (3.5-5.1) mmol/L Chloride (98-107) mmol/L Carbon Dioxide (21-32) mmol/L Anion Gap (3-11) BUN (7-18) mg/dl Creatinine (0.6-1.4) mg/dl Est Cr Clr Drug Dosing ml/min Est GFR ( Amer) Est GFR (Non-Af Amer) BUN/Creatinine Ratio (10-20) Glucose (70-99) mg/dl Lactate 0.9 (0.4-2.0) mmol/L Calcium (8.5-10.1) mg/dl Magnesium (1.8-2.4) mg/dl Total Bilirubin (0.2-1) mg/dl AST (15-37) U/L ALT (12-78) U/L Alkaline Phosphatase (45-117) U/L Troponin I (0-0.045) ng/ml Total Protein (6.4-8.2) gm/dl Albumin (3.4-5.0) gm/dl Globulin (2.5-4.0) gm/dl Albumin/Globulin Ratio (0.9-2) Procalcitonin 0.26 (0-0.5) ng/ml Specimen Hemolysis Administered Medications Discontinued Medications Acetaminophen (Tylenol) 1,000 mg PO NOW STA Stop: 12/30/19 11:25 Last Admin: 12/30/19 11:50 Dose: 1,000 mg Documented by: [id number] Sodium Chloride (Nss 1000ml) 1,000 mls @ 999 mls/hr IV .Q1H1M ONE Stop: 12/30/19 12:24 Last Infusion: 12/30/19 13:02 Dose: 0 mls/hr Documented by: [id number] Admin: 12/30/19 11:51 Dose: 999 mls/hr Documented by: [id number] Magnesium Sulfate/Dextrose (Magnesium Sulfate / D5w) 1 gm in 100 mls @ 100 mls/hr IV Q1H BELLA Stop: 12/30/19 14:21 Last Admin: 12/30/19 14:23 Dose: 100 mls/hr Documented by: [id number] Infusion: 12/30/19 14:05 Dose: 100 mls/hr Documented by: [id number] Admin: 12/30/19 13:05 Dose: 100 mls/hr Documented by: [id number] Cefepime HCl (Maxipime) 2,000 mg in 20 mls @ 5 mls/min IV NOW STA; Protocol Stop: 12/30/19 12:35 Last Admin: 12/30/19 13:05 Dose: 5 mls/min Documented by: [id number] Sodium Chloride (Nss 1000ml) 1,000 mls @ 999 mls/hr IV .Q1H1M ONE Stop: 12/30/19 14:54 Last Admin: 12/30/19 14:24 Dose: 999 mls/hr Documented by: [id number] Imaging Data Radiologist's Impression: XR chest 1V portable CLINICAL HISTORY: Sepsis. COMPARISON STUDY: Chest CT January 19, 2019. PET/CT October 13, 2019 and chest radiograph December 12, 2019. FINDINGS: Left subclavian [id number] is in place. There is no pneumothorax or pleural effusion. Cardiac size is normal. Bilateral lower lung airspace opacity has mildly increased since exam of December 12, 2019. There is no evidence for pulmonary edema. IMPRESSION: Mild increase in bilateral lower lung airspace opacity since chest radiograph of December 12, 2019. Although nonspecific, this favors multifocal pneumonia. Radiographic follow up to ensure resolution is recommended. ACT 112: Negative or not required by law. Electronically signed by: Pito Curiel M.D. 12/30/2019 12:41 PM Dictated: 12/30/19 1239 Transcribed: 12/30/19 1239 Blood Pressure Blood Pressure Findings: Normal blood pressure Discharge Plan Visit Data Chief Complaint: Fever Stated Complaint: WEAK,FEVER,CA PT ED Provider: Rolo Delacruz Discharge Problem: Fever and neutropenia, Pneumonia, Hypomagnesemia Patient Disposition: Being Evaluated by Hospitalist Condition: Good Forms Stand Alone Forms: My [facility] Prescriptions Prescriptions: No Action lisinopril 5 mg tablet 5 mg PO QAM Qty: 90 RF: 3 atorvastatin 40 mg tablet 40 mg PO QAM Qty: 90 RF: 3 glimepiride 2 mg tablet 4 mg PO QAM Qty: 60 RF: 6 (DME) blood sugar diagnostic [[place] Ultra Blue Test Strip] Strip See Rx Instructions .ROUTE .MEDSUPPLY Qty: 300 RF: 3 multivitamin Tablet 1 tab PO QAM RF: 0 cyanocobalamin (vitamin B-12) 1,000 mcg Tablet 1,000 mcg PO QAM RF: 0 coenzyme Q10 [Co Q-10] 100 mg Capsule 100 mg PO QAM RF: 0 aspirin 81 mg Tablet,Delayed Release (Dr/Ec) 81 mg PO QAM RF: 0 ondansetron HCl 8 mg tablet 8 mg PO Q8H PRN (Reason: Nausea) RF: 0 prochlorperazine maleate 10 mg tablet 10 mg PO Q6H PRN (Reason: Nausea) RF: 0 levothyroxine 50 mcg tablet 25 - 50 mcg PO QAM RF: 0 acetaminophen [Tylenol] 325 mg capsule 650 mg PO Q6H PRN (Reason: Fever Or Pain) RF: 0 Magic Mouthwash 300 mL mouthwash 5 ml mucous membrane ACHS PRN (Reason: swish/swallow) Qty: 300 RF: 1 ciprofloxacin HCl 500 mg Tablet 500 mg PO Q12H RF: 0 hydrocortisone 2.5 % cream 1 applic TOPICAL BID PRN (Reason: Eczema) RF: 0 omega 7-ahi-usv-fish oil [Fish Oil] 1,000 mg (120 mg-180 mg) Capsule 1 cap PO QAM RF: 0 magnesium 250 mg Tablet 250 mg PO QAM RF: 0 Digestive Advantage Prob Gummy 250 million cell Tablet,Chewable 1 cell PO QAM RF: 0 valacyclovir 500 mg tablet 500 mg PO PM RF: 0 Referrals Referrals: Vinnie Crawford MD [Primary Care Provider] - Discharge Problem: Pneumonia Qualifiers: Pneumonia type: due to unspecified organism Laterality: bilateral Lung location: lower lobe of lung Qualified Code(s): J18.9 - Pneumonia, unspecified organism
[2019-12-30 11:55] LABS: Hematocrit (blood only) 24.7 % (42-52); Hemoglobin 8.4 g/dL (14.0-18.0); Mean Corpuscular Volume 91.1 fL (80-100); RDW Coefficient of Variation 15.2 % (11.5-14.5); RDW Standard Deviation 49.8 fL (36.4-46.3); Red Blood Count 2.71 M/uL (4.7-6.1)
[2019-12-30 11:57] LABS: Mean Platelet Volume 9.9 fL (7.4-10.4); Platelet Count 70 K/uL (130-400)
[2019-12-30 12:06] LABS: INR 1.1 (0.9-1.1); Partial Thromboplastin Ratio 1.2
[2019-12-30 12:11] LABS: Alanine Aminotransferase 30 U/L (12-78); Albumin Level 2.5 gm/dl (3.4-5.0); Aspartate Aminotransferase 13 U/L (15-37); BUN Creatinine Ratio 20.8 (10-20); Blood Urea Nitrogen 26 mg/dl (7-18); Calcium 8.3 mg/dl (8.5-10.1); Carbon Dioxide 27 mmol/L (21-32); Chloride 102 mmol/L (98-107); Creatinine Clr Calc Pharmacy 71.2 ml/min; Est GFR (African American) 69.2; Est GFR (Non-African American) 59.7; Glucose 271 mg/dl (70-99); Magnesium 1.3 mg/dl (1.8-2.4); Potassium 4.2 mmol/L (3.5-5.1); Sodium 134 mmol/L (136-145)
[2019-12-30 12:14] LABS: Albumin Globulin Ratio 0.8 (0.9-2); Alkaline Phosphatase 88 U/L (45-117); Bilirubin,Total 0.7 mg/dl (0.2-1); Globulin 3.1 gm/dl (2.5-4.0); Total Protein 5.6 gm/dl (6.4-8.2); Troponin I < 0.015 ng/ml (0-0.045)
[2019-12-30] MEDS ORDERED: CEFEPIME 2,000 MG/20 ML VIAL IV STA (12:32)
[2019-12-30 12:34] LABS: Anisocytosis Present; Ovalocytes 1+; Smudge Cells Present
--- NOTE | 2019-12-30 12:42 | XRay Report ---
XR chest 1V portable CLINICAL HISTORY: Sepsis. COMPARISON STUDY: Chest CT January 19, 2019. PET/CT October 13, 2019 and chest radiograph December 12, 2019. FINDINGS: Left subclavian [id number]-[id number] is in place. There is no pneumothorax or pleural effusion. Ca rdiac size is normal. Bilateral lower lung airspace opacity has mildly increased since exam of November 302019. There is no evidence for pulmonary edema. IMPRESSION: Mild increase in bilateral lower lung airspace opacity since chest radiograph of November. Although nonspecific, this favors multifocal pneumonia. Radiographic follow up to ensure reso lution is recommended. ACT 112: Negative or not required by law. Electronically signed by: Pito Curiel M.D. 12/30/2019 12:41 PM
[2019-12-30] MEDS: MAGNESIUM SULFATE / D5W 1 GM/100 ML BAG IV SCH ×2 (13:05→14:23)
--- NOTE | 2019-12-30 14:35 | History & Physical Report ---
Date of Service December 30, 2019 Assessment & Plan (1) Neutropenia with fever: Currently being treated for CLL with R-CHOP - last treatment 2 weeks [address] Dr. Morillo ANC 0 Received neulasta on day of chemo and second dose the day after treatment No other symptoms other than fever No COVID contacts, no cough, no loss of taste or smell. Check MRSA swab Add one dose vancomycin Continue Cefepime (2) CLL (chronic lymphocytic leukemia): Follows with Dr. Morillo Receives R-CHOP - last treatment two weeks ago Will advise Dr. Moirllo that patient is inpatient Rule out tumor lysis syndrome - check Uric acid and Phosphorus. Follow serial labs Continue empiric Valcyclovir (3) Thrombocytopenia: Platelet count is 70,000 No active bleeding No blood in colostomy bag Follow serial labs (4) Anemia: No active bleeding Follow serial labs Hx of transfusion with 5 or 6 transfusions this year associated with chemotherapy (5) Hypothyroidism: Continue Levothyroxine (6) Pneumonia: Multifocal opacities on CXR Started on Cefepime secondary to neutropenia Check MRSA swab Empiric Vancomycin pending MRSA Chronically immunosupressed -continue valacyclovir (7) Hypomagnesemia: Mag 1.4 Received 2 gms IV in the ED Follow serial labs (8) Diabetes mellitus, type 2: Continue Glimiperide Will check BSG ACHS Cover with Novolog SSI HgB A1c 7.2% (9) Chronic kidney disease: Baseline 1.6 to 1.8 Current suspender cutter 1.27 Follow serial labs Please refer to Dr. Newton's addendum for further recommendations or corrections History of Present Illness Chief Complaint: Fever Primary Care Provider: Vinnie Crawford MD Attending: Dr. Newton This is a 64-year-old male with a history of CLL and prior history of pancytopenia, diabetes mellitus type 2, hypothyroidism, microcytic anemia, thrombocytopenia, history of TIA/CVA, Lopez, hypertension, tumor lysis syndrome, paronychia, lymphadenopathy of the lower extremity. The patient presents with elevated fever. He reports that he had chemotherapy on December 24, 2019 with R-CHOP. He states that he got a dose of Neulasta on the day of therapy and the day after. He states that over the last couple of days it seems like his fever is getting worse. He has no cough, sputum production, nausea, vomiting. He does have a colostomy bag in place and stool has been loose to watery but is typical with his normal output. He has no recent travel or sick contacts. 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 He is not aware that she has had any contact with sick patients or COVID patients. He has no recent travel. He states his appetite is good and he has no early satiety. For his diabetes he does not take insulin but he does use glimepiride and states that his diabetes has been generally controlled. He has no awareness of palpitations and denies chest pain or tightness. He has no other acute complaints. Allergies Allergy/AdvReac Type Severity Reaction Status Date / Time ibrutinib [From ImJobbruvRefresh Body] Allergy Intermediate LOOKED Verified 12/30/19 11:58 LIKE A LEOPARD SPOTTED ALL OVER NSAIDS (Non-Steroidal AdvReac Unknown DUE TO Verified 12/30/19 11:58 Anti-Inflamma DECREASED KIDNEY FUNCTION Home Medications Home Medications Medication Instructions Recorded Confirmed Type coenzyme Q10 [Co Q-10] 100 mg PO QAM 02/17/18 12/30/19 History cyanocobalamin (vitamin B-12) 1,000 mcg PO QAM 02/17/18 12/30/19 History multivitamin 1 tab PO QAM 02/17/18 12/30/19 History lisinopril 5 mg tablet 5 mg PO QAM #90 tab 03/15/19 12/30/19 Rx atorvastatin 40 mg tablet 40 mg PO QAM #90 tab 07/15/19 12/30/19 Rx Digestive Advantage Prob Gummy 1 cell PO QAM 07/27/19 12/30/19 History hydrocortisone 1 applic TOPICAL BID PRN 07/27/19 12/30/19 History magnesium 250 mg PO QAM 07/27/19 12/30/19 History omega [id number]-fish oil [Fish Oil] 1 cap PO QAM 07/27/19 12/30/19 History glimepiride 2 mg tablet 4 mg PO QAM #60 tab 09/16/19 12/30/19 Rx aspirin 81 mg PO QAM 11/04/19 12/30/19 History acetaminophen [Tylenol] 650 mg PO Q6H PRN 12/10/19 12/30/19 History blood sugar diagnostic #300 ea 12/10/19 12/20/19 Rx levothyroxine 25 - 50 mcg PO QAM 12/10/19 12/30/19 History ondansetron HCl 8 mg PO Q8H PRN 12/10/19 12/30/19 History prochlorperazine maleate 10 mg PO Q6H PRN 12/10/19 12/30/19 History Magic Mouthwash 5 ml MUCOUS MEMBRANE ACHS PRN #300 12/14/19 12/30/19 Rx ml ciprofloxacin HCl 500 mg PO Q12H 12/22/19 12/30/19 History valacyclovir 500 mg PO PM 12/30/19 12/30/19 History Past Med/Surg History Medical History Anemia Cataract, left eye Chronic kidney disease STAGE III. Baseline Cr 1.6-1.8. CLL (chronic lymphocytic leukemia) following w/ Dr. Morillo Diabetes mellitus, type 2 Hyperlipidemia Hypertension Hypothyroidism Lower extremity edema Lymphadenopathy Presence of colostomy Stroke 2015--SPEECH IS SLIGHTLY SLOWER Tinnitus of both ears Surgical History Anal abscess (~11/2018) Awareness under anesthesia H/O right cataract extraction History of tooth extraction WISDOM TEETH History of vascular access device L CHEST S/P biopsy (~2019) Bone biopsy x 2 S/P lymph node biopsy (11/11/19) Incisional Biopsy Left Axillary Node Dr. Chao 11/11/19 Family History Father Family history of diabetes mellitus TIA (transient ischemic attack) Diabetes Mother Cancer Brother Cancer Other Stroke Social History Smoking Status: Never smoker Second Hand Exposure: No; Do You Dip or Chew Tobacco: No; Tobacco Cessation Education Requested by Patient: No Hx Alcohol Use: No Hx Substance Use: No Preferred Language: Swazi Communication Ability: Effective Gravity Prospecting Observer Required: No Beliefs That Will Affect Care: None marital status: Current Living Situation: Spouse Current Living Situation Comment: [facility] How many Children do You have: 2 Other Information That Helps Us Care for You: No Feels Safe at Home: Yes Safety Concerns: Feels Safe At This Time Review of Systems Review of Systems: All systems reviewed & are unremarkable except as noted in HPI & below Physical Exam Physical Exam: GENERAL : No acute distress. Appears ill EYES: No icterus, gaze conjugate. Pupils equal round and reactive to light NOSE: No evidence of epistaxis MOUTH: Small lesion on left corner of mouth. Possible early candidiasis in posterior oropharynx NECK: Supple LUNGS: Crackles at bilateral bases. No appreciation of rhonchi or bronchospasm HEART: Regular, rate controlled CHEST: Mediport accessed in left subclavian region ABDOMEN: Soft, NT, ND, BS Present EXTREMITIES: No LE edema, pedal pulses intact NEURO: A&OX3. Results & Data Results & Data ([facility]) Vital Signs (Past 12 Hours) Vital Signs Temp Pulse Resp BP Pulse Ox 12/30/19 13:34 103 H 17 102/54 L 12/30/19 13:31 101 H 21 12/30/19 13:15 38.7 C H 12/30/19 13:01 109 H 20 12/30/19 13:00 110 H 29 H 114/51 L 12/30/19 12:31 109 H 22 12/30/19 12:30 107 H 27 H 124/63 12/30/19 12:00 106 H 24 145/68 H 12/30/19 11:57 108 H 23 142/75 H 96 12/30/19 11:50 97 12/30/19 11:49 18 97 12/30/19 11:14 39.5 C H 121 H 20 123/71 94 Laboratory Results Magnesium 1.3 Potassium 4.2 Sodium 134 Chloride 102 CO2 27 BUN 26 Creatinine 1.27 Random glucose 271 Calcium 8.3 WBC 2.9 Absolute neutrophil count 0 Platelet count 70 Hemoglobin 8.4 Hematocrit 24.7 ECG Additional Comments: Sinus tachycardia 113 bpm QTc 433 Code Status & VTE Plan Code Status Full resuscitation VTE Prophylaxis Plan Reason for no VTE drug order: Contraindicated Supervising Physician Co-Signing Physician Notes ERAN Supervision Note: I personally saw and examined the patient. I verified all alvarez points and agree with ERAN Maki with the following exceptions and/or additions: Patient presents to the ER today with chills at home and found to have a fever to 38.7. He denies any cough or shortness of breath, no abdominal pains or urinary symptoms. No evidence of infection of his port. His last chemotherapy treatment was on 12/23 and he has been treated with R-CHOP for his known CLL. He was recently admitted and discharged on 12/13 also with neutropenic fever and left lower lobe pneumonia. At that time, his COVID-19 test was negative and his viral respiratory panel was positive for rhino/enterovirus. Today, he was found to have an ANC of 0 and a fever in the ER along with sinus tachycardia and fever. His chest x-ray now shows bilateral lower lobe pneumonia increased from previous History and ROS reviewed as above Vitals reviewed General: He was having shaking chills when I saw him, NAD, with alopecia, appears ill and pale, alert awake oriented x3 HEENT: Anicteric sclerae, EOMI, with mildly erythematous sore with cracked corner of the left lip, also with mucositis in the posterior oropharynx CV: Regular rhythm and tachycardic no mgr nl S1S2, port at the left anterior chest wall without any surrounding erythema Pulm: With mild crackles at the bases bilaterally, no wheezes Abd: +BS soft NT ND no masses or hernias, with colostomy in place Ext: No edema, 2+ DP pulses Skin: No rashes, warm/dry Neuro: Full strength throughout 64-year-old male with a history of CLL on chemotherapy, HTN, DM 2, CKD stage III, hypothyroidism, chemotherapy induced pancytopenia, history of CVA, here with neutropenic fever and pneumonia-healthcare associated. -Continue on broad-spectrum antibiotics to include cefepime and vancomycin to cover for gram-negative pneumonia and MRSA pneumonia -Check MRSA swab -Check rapid COVID-19 test and viral respiratory bio fire panel -Acetaminophen as needed for fevers -Follow blood cultures-of note, he refused the peripheral stick for the blood culture but the one that is pending is from his port -Will make NovoLog sliding scale a bit more aggressive, okay to continue glimepiride-May need to add on Lantus if hyperglycemia persists -We will discuss with hematology about whether to add daily Neupogen given that his ANC is 0 -Follow daily CBC, CMP PG Care Time/CCT Total # of Minutes Spent Total Time Spent with Patient: Total time spent is greater than 50% in coordination of care (as documented) at patient's floor/unit and/or counseling patient: 60 minutes Coding Level of Care Code 44887 Initial Inpt Care Lvl 3 Diagnoses Neutropenia with fever D70.9; R50.81 CLL (chronic lymphocytic leukemia) C91.90 Thrombocytopenia D69.6 Anemia D64.9 Anemia type: unspecified type Hypothyroidism E03.9 Pneumonia J18.9 Hypomagnesemia E83.42 Diabetes mellitus, type 2 E11.9 Chronic kidney disease N18.9 Chronic kidney disease stage: unspecified stage Time Spent (min) 60 (1) Anemia Anemia type: unspecified type Qualified Code(s): D64.9 - Anemia, unspecified (2) Chronic kidney disease Chronic kidney disease stage: unspecified stage Qualified Code(s): N18.9 - Chronic kidney disease, unspecified
--- NOTE | 2019-12-30 16:22 | Electrocardiogram Report ---
Test Reason : Blood Pressure : / mmHG Vent. Rate : 113 BPM Atrial Rate : 113 BPM P-R Int : 170 ms QRS Dur : 080 ms QT Int : 316 ms P-R-T Axes : 013 -13 075 degrees QTc Int : 433 ms Sinus tachycardia Old Septal infarct (cited on or before 10-DEC-2019) Abnormal ECG When compared with ECG of 10-DEC-2019 15:48, No significant change was found Confirmed by Bob Naylor ([id number]) on 12/30/2019 4:22:23 PM Referred By: REFERRED SELF Confirmed By:Bob Naylor
[2019-12-30] MEDS ORDERED: PROCHLORPERAZINE MALEATE 10 MG TAB PO PRN (16:28)
[2019-12-30] MEDS ORDERED: MAGIC MOUTHWASH mucous membrane PRN (16:28)
[2019-12-30] MEDS ORDERED: GLUCOSE 40% GEL 15 GM TUBE PO PRN (16:28)
[2019-12-30] MEDS ORDERED: GLUCAGON FOR INJ 1 MG VIAL SQ PRN (16:28)
[2019-12-30] MEDS ORDERED: GLUCOSE 10 TABS/TUBE PO PRN (16:28)
[2019-12-30] MEDS ORDERED: DEXTROSE 50% 50 ML SYRINGE IV PRN (16:28)
[2019-12-30] MEDS ORDERED: MAGNESIUM HYDROXIDE SUSP 30 ML UDC PO PRN (16:28)
[2019-12-30] MEDS ORDERED: ALUMINUM/MAGNESIUM SUSP 30 ML UDC PO PRN (16:28)
[2019-12-30] MEDS ORDERED: CARBOHYDRATES FOR HYPOGLYCEMIA PO PRN (16:28)
[2019-12-30] MEDS ORDERED: VANCOMYCIN CONSULT ACTIVE PRN (16:28)
[2019-12-30 16:34] LABS: Appearance Urine Clear (Clear); Bacteria Urine Automated Negative (Negative); Bilirubin Urine Negative (Negative); Blood Urine Negative (Negative); Color Urine Yellow; Glucose Urine UA Negative (Negative); Ketones Urine Negative (Negative); Leukocyte Esterase Urine Negative (Negative); Nitrite Urine Negative (Negative); Protein Urine 1+ (Negative); Specific Gravity Urine 1.019 (1.000-1.030); Urobilinogen Urine Negative (Negative)
[2019-12-30] MEDS ORDERED: Magic Mouthwash 240mL PO PRN (16:39)
[2019-12-30 16:51] LABS: Phosphorus 2.7 mg/dl (2.5-4.9)
[2019-12-30] MEDS: ACETAMINOPHEN 325 MG TAB PO PRN ×2 (16:51→22:33)
[2019-12-30] MEDS ORDERED: VANCOMYCIN HCL 2,000 MG in SODIUM CHLORIDE 0.9% 500 ML IV ONE (17:00)
[2019-12-30] MEDS: INSULIN ASPART 100 UNITS/ML 3 ML PEN SC SCH ×2 (17:48→20:03)
[2019-12-30] MEDS: VALACYCLOVIR HCL 500 MG TABLET PO SCH (20:03)
--- NOTE | 2019-12-30 21:31 | Pharmacy Report ---
Pharmacy Abx Initial Consult - Date of Service December 30, 2019 - Pharmacy Dosing Scope Date of Consult: 12/29 Consultation requested by: Neymar Maki Pharmacy is consulted to initiate vancomycin IV/PO dosing therapy, order appropriate labs and adjust drug dose/frequency. - Subjective The patient is a 64 year old M admitted on 12/30/19 14:32. - Objective Height: 5 ft 10 in Weight: 102 kg Vital Signs (Past 12hrs): Vital Signs Temp Pulse Pulse Resp BP BP Pulse Ox 12/30/19 19:50 39.4 C H 104 H 18 128/74 92 12/30/19 19:24 39.0 C H 98 H 18 134/81 94 12/30/19 16:28 39.4 C H 120 H 18 153/69 H 93 12/30/19 15:01 98 H 26 H 12/30/19 15:00 98 H 27 H 133/67 12/30/19 14:31 95 H 28 H 12/30/19 14:30 93 H 27 H 107/63 12/30/19 14:01 93 H 27 H 12/30/19 14:00 93 H 26 H 101/48 L 12/30/19 13:34 103 H 17 102/54 L 12/30/19 13:31 101 H 21 12/30/19 13:15 38.7 C H 12/30/19 13:01 109 H 20 12/30/19 13:00 110 H 29 H 114/51 L 12/30/19 12:31 109 H 22 12/30/19 12:30 107 H 27 H 124/63 12/30/19 12:00 106 H 24 145/68 H 12/30/19 11:57 108 H 23 142/75 H 96 12/30/19 11:50 97 12/30/19 11:49 18 97 12/30/19 11:14 39.5 C H 121 H 20 123/71 94 Lab Results (24hrs): Laboratory Tests (24 Hours) 12/30/19 12/30/19 12/30/19 11:40 11:40 11:40 WBC 2.90 L Neut # (Auto) 0.00 L* Creatinine 1.27 Est Cr Clr Drug Dosing 71.2 Procalcitonin 0.26 Micro Results: 12/30/19 11:40 Aerobic Blood Culture - Pending Blood Anaerobic Blood Culture - Pending - Risk Factors for Resistance * Hospitalization for 48 hours or more within the past 90 days * Immunocompromised (chemo) - Assessment & Plan Assessment 64 year old male with neutropenia/fever and concern for pneumonia on admission. Previously admitted 12/09-12/13. PMHx significant for CLL and being treated with chemo. Blood cultures are pending, Plan Vancomycin IV * Patient received loading dose of vancomycin 2000 mg x 1 (~20 mg/kg) * Will start vancomycin 1500 mg (~15 mg/kg) iv q 16 hrs to achieve an estimated trough ~15 mcg/ml * Patient not candidate for vancomycin AUC dosing - utilized traditional dosing * Estimated kinetics: t1/2~12 hrs, ke~0.06 hr-1, CrCl ~71 ml/min * Will plan to obtain trough if continued >48 hours Pharmacy will continue to follow and will adjust dose/frequency as necessary. Thank you.
[2019-12-30] MEDS ORDERED: SODIUM CHLORIDE 0.9% 1000ML 1,000 ML IV SCH (23:15)
[2019-12-30] MEDS ORDERED: FILGRASTIM 300 MCG/ML VIAL SQ SCH (23:20)
[2019-12-30] MEDS ORDERED: ACETAMINOPHEN 325 MG TAB PO ONE (23:22)
[2019-12-30] MEDS: CEFEPIME 2,000 MG in SYRINGE 7.5 ML IV SCH (23:45)
[2019-12-30] MEDS ORDERED: FILGRASTIM 480 MCG/1.6 ML VIAL SQ SCH (23:45)
[2019-12-31 00:47] LABS: Adenovirus PCR Not Detected (NotDetected); Bordetella parapertussis PCR Not Detected (NotDetected); Bordetella pertussis PCR Not Detected (NotDetected); Chlamydia pneumoniae PCR Not Detected (NotDetected); Coronavirus 229E PCR Not Detected (NotDetected); Coronavirus HKU1 PCR Not Detected (NotDetected); Coronavirus NL63 PCR Not Detected (NotDetected); Coronavirus OC43PCR Not Detected (NotDetected); Human Metapneumovirus PCR Not Detected (NotDetected); Influenza A PCR Not Detected (NotDetected); Influenza B PCR Not Detected (NotDetected); Mycoplasma pneumoniae PCR Not Detected (NotDetected); Parainfluenza Virus 1 PCR Not Detected (NotDetected); Parainfluenza Virus 2 PCR Not Detected (NotDetected); Parainfluenza Virus 3 PCR Not Detected (NotDetected); Parainfluenza Virus 4 PCR Not Detected (NotDetected); Respiratory Syncytial VirusPCR Not Detected (NotDetected); Rhinovirus/Enterovirus PCR Not Detected (NotDetected)
[2019-12-31] MEDS: ACETAMINOPHEN 500 MG TAB PO PRN ×3 (04:03→21:26)
[2019-12-31 06:10] LABS: Hematocrit (blood only) 21.3 % (42-52); Mean Corpuscular Hemoglobin 30.7 pg (25-34); Mean Corpuscular Hgb Conc 32.9 g/dL (32-36); Mean Corpuscular Volume 93.4 fL (80-100); RDW Coefficient of Variation 15.6 % (11.5-14.5); RDW Standard Deviation 52.1 fL (36.4-46.3); Red Blood Count 2.28 M/uL (4.7-6.1); White Blood Count 1.24 K/uL (4.8-10.8)
[2019-12-31 06:11] LABS: Mean Platelet Volume 10.2 fL (7.4-10.4); Platelet Count 42 K/uL (130-400)
[2019-12-31] MEDS ORDERED: LEVOTHYROXINE SODIUM 25 MCG TABLET PO SCH (06:30)
[2019-12-31 06:42] LABS: Calcium 7.5 mg/dl (8.5-10.1); Creatinine Clr Calc Pharmacy 69.9 ml/min; Est GFR (African American) 66.7; Est GFR (Non-African American) 57.5; Magnesium 1.7 mg/dl (1.8-2.4); Potassium 3.7 mmol/L (3.5-5.1)
[2019-12-31 06:50] LABS: Lymphocytes # (auto) 1.22 K/uL (1.2-3.4); Lymphocytes % (auto) 98.4 %; Monocytes # (auto) 0.01 K/uL (0.11-0.59); Monocytes % (auto) 0.8 %; Neutrophils # (auto) 0.01 K/uL (1.4-6.5); Neutrophils % (auto) 0.8 %
[2019-12-31 06:52] LABS: Ovalocytes 1+
--- NOTE | 2019-12-31 07:05 | XRay Report ---
XR chest 1V portable HISTORY: 64 years-old Male PNA/Neutropenic fever acute shortness of breath with pneumonia COMPARISON: Chest radiograph 12/30/2019, PET CT 10/13/2019 TECHNIQUE: Portable AP view of the chest FINDINGS: Cardiac silhouette is normal in size. Unchanged mild bilateral hilar prominence. No pneumothorax, lar ge pleural effusion or overt pulmonary edema. Left greater than right bibasilar airspace opacities ar e redemonstrated. Left subclavian [id number] catheter is unchanged. Calcified granuloma of the lat eral right lung base. The bones appear grossly intact. IMPRESSION: Unchanged left greater than right bibasilar airspace opacities suggestive of multifocal p neumonia. Continued follow-up recommended. ACT 112: Negative or not required by law. The above report was generated using voice recognition software. It may contain grammatical, syntax o r spelling errors. Electronically signed by: Ifeanyi Anderosn M.D. 12/31/2019 7:04 AM
[2019-12-31] MEDS ORDERED: GLIMEPIRIDE 2 MG TAB PO SCH (09:00)
[2019-12-31] MEDS: ATORVASTATIN 40 MG TAB PO SCH (09:00)
[2019-12-31] MEDS ORDERED: NON-FORMULARY MEDICATION (Coenzyme Q10 [Co Q-10] 100 MG) PO SCH (09:00)
--- NOTE | 2019-12-31 09:03 | Hospitalist Progress Note ---
Date of Service December 31, 2019 Assessment & Plan (1) Fever and neutropenia: chemotherapy induced pancytopenia from r-CHOP treatment for CLL, was in prior to this cycle with similar including pulmonary infiltrates but a positive biofire at that time for viral pneumonia, re treated with chemo 12/23 now with pancytopenia/neutropenia and fever with pulmonary infiltrates again. negative procalcitonin Covid-Negative biofire-negative maintains on Vancomycin and Cefepime We will give the patient additional liter of fluid overnight (2) Pneumonia: bibasilar infiltrates left greater than right, unclear clinical significance with negative pro lise and negative viral studies, on broad spectrum antibiotics due to neutroenia (3) Hypertension: remains on lisinopril, is on aspirin and atorvastain for cardiovascular risk prevention (4) Chronic kidney disease: pt has chronic kidney disease stage 3, will avoid nephrotoxins (5) Diabetes mellitus, type 2: typically is on glimeparide, now on ssi, no long acting insulin yet (6) Hypothyroidism: continues on synthroid (7) DVT prophylaxis: chemoprophylaxis contraindicated due to low platelet counts Admission and Anticipated Discharge Date Admission Date: December 30, 2019 Subjective Patient is weak and tired wearing a mask he has no focal complaints or problems with exception that his colostomy output is slightly thickened or sticky for him he is having decreased urination no dysuria or hematuria Review of Systems 2 Review of Systems: Moderate distress and moderate fatigue no headache, blurry or double vision no speech or swallowing issues no chest pain, pressure or palpitations no shortness of breath, cough or wheezes no abdominal pain, nausea or vomiting, planes stool in colostomy bag is thickened no dysuria, hematuria or frequency no focal joint pain or swelling no back pain, CVA tenderness or radicular pain no bruising, bleeding or rashes no focal signs of weakness or numbness or altered sensation no complaints or anxiety or depression. Physical Exam Physical Exam: The patient appeared chronically ill alopecic appears consistent with the patient undergoing chemotherapy Vital signs as documented. Head exam is normocephalic atraumatic no scleral icterus Neck is without JVD, thyromegaly, or carotid bruits. Lungs are clear to auscultation, no focal loss of breath sounds Cardiac exam, Rhythm is regular.. No murmurs, rubs or gallops. Abdominal exam reveals normal bowel sounds, soft non tender ostomy functioning the abdomen Extremities are nonedematous and both pedal pulses are normal. Neurologic exam is alert and oriented, no focal loss of strength or sensation Skin is without bruises or rashes Psychologically is without concerns for anxiety or depression Results & Data Results & Data ([facility]) Vital Signs (Past 12 Hours) Vital Signs Temp Pulse Resp BP BP Pulse Ox 12/31/19 07:38 103.1 F H 99 H 18 156/78 H 98 12/31/19 05:56 101.7 F H 12/31/19 04:16 103.1 F H 12/31/19 04:12 104 H 18 139/62 95 12/31/19 04:05 104 F H 12/31/19 02:22 102.2 F H 12/31/19 01:12 102.4 F H 12/30/19 23:05 104.2 F H 114 H 20 116/60 91 12/30/19 21:42 99.0 F 86 18 133/77 94 PG Care Time/CCT Total # of Minutes Spent Total Time Spent with Patient: Total time spent is greater than 50% in coordination of care (as documented) at patient's floor/unit and/or counseling patient: Coding Level of Care Code 31489 Subseq Hosp Care Lvl 3 Diagnoses Fever and neutropenia D70.9; R50.81 Pneumonia J18.9 Laterality: bilateral Lung location: lower lobe of lung Pneumonia type: due to unspecified organism Hypertension I10 Chronic kidney disease N18.9 Chronic kidney disease stage: unspecified stage Diabetes mellitus, type 2 E11.9 Hypothyroidism E03.9 DVT prophylaxis Z29.9 (1) Chronic kidney disease Chronic kidney disease stage: unspecified stage Qualified Code(s): N18.9 - Chronic kidney disease, unspecified (2) Pneumonia Laterality: bilateral Lung location: lower lobe of lung Pneumonia type: due to unspecified organism Qualified Code(s): J18.9 - Pneumonia, unspecified organism
[2019-12-31] MEDS: OMEGA-3 (PURIFIED FISH OIL) 1 GM CAP PO SCH (09:31)
[2019-12-31] MEDS: MULTIVITAMIN TAB PO SCH (09:31)
[2019-12-31] MEDS: lisinopriL 5 MG TAB PO SCH (09:31)
[2019-12-31] MEDS: MAGNESIUM OXIDE 400 MG TAB PO SCH (09:31)
[2019-12-31] MEDS: ASPIRIN 81 MG ECTAB PO SCH (09:31)
[2019-12-31] MEDS: CEFEPIME 2,000 MG in SYRINGE 7.5 ML IV SCH ×3 (09:32→23:44)
[2019-12-31] MEDS: CYANOCOBALAMIN 500 MCG TABLET (VITAMIN B-12) PO SCH (09:32)
[2019-12-31] MEDS: INSULIN ASPART 100 UNITS/ML 3 ML PEN SC SCH ×4 (09:36→21:27)
[2019-12-31] MEDS: VANCOMYCIN HCL 1,500 MG in SODIUM CHLORIDE 0.9% 500 ML IV SCH ×2 (09:44→23:44)
[2019-12-31] MEDS: HEPARIN 100 UNIT/ML 5ML FLUSH FLUSH PRN (15:41)
[2019-12-31] MEDS ORDERED: SODIUM CHLORIDE 0.9% 1000ML 1,000 ML IV SCH (17:30)
[2019-12-31] MEDS: VALACYCLOVIR HCL 500 MG TABLET PO SCH (21:25)
[2020-01-01] MEDS: HEPARIN 100 UNIT/ML 5ML FLUSH FLUSH PRN ×2 (05:51→09:32)
[2020-01-01] MEDS: ONDANSETRON 8MG OD TAB PO PRN (06:09)
[2020-01-01] MEDS: LEVOTHYROXINE SODIUM 50 MCG TABLET PO SCH (06:11)
[2020-01-01 06:45] LABS: Mean Corpuscular Hgb Conc 33.7 g/dL (32-36); Platelet Count 30 K/uL (130-400)
[2020-01-01 07:02] LABS: Calcium 7.6 mg/dl (8.5-10.1); Creatinine Clr Calc Pharmacy 68.2 ml/min; Est GFR (African American) 66.1; Potassium 3.6 mmol/L (3.5-5.1)
[2020-01-01 07:56] LABS: Echinocytes 1+; Ovalocytes 1+; Smudge Cells Present
[2020-01-01 07:57] LABS: ALC (manual) 1.51 K/uL (1.2-3.4); Hematocrit (blood only) 20.8 % (42-52); Lymphocytes # (manual) 1.51 K/uL (1.2-3.4); Mean Corpuscular Hemoglobin 30.7 pg (25-34); Mean Corpuscular Volume 91.2 fL (80-100); RDW Coefficient of Variation 15.7 % (11.5-14.5); RDW Standard Deviation 52.7 fL (36.4-46.3); Red Blood Count 2.28 M/uL (4.7-6.1); White Blood Count 1.51 K/uL (4.8-10.8)
[2020-01-01] MEDS ORDERED: SODIUM CHLORIDE 0.9% 250 ML IV PRN (08:59)
[2020-01-01] MEDS ORDERED: FILGRASTIM 480 MCG/1.6 ML VIAL SC ONE (09:15)
[2020-01-01] MEDS: CEFEPIME 2,000 MG in SYRINGE 7.5 ML IV SCH ×2 (09:23→16:06)
[2020-01-01] MEDS: OMEGA-3 (PURIFIED FISH OIL) 1 GM CAP PO SCH (09:23)
[2020-01-01] MEDS: ASPIRIN 81 MG ECTAB PO SCH (09:24)
[2020-01-01] MEDS: CYANOCOBALAMIN 500 MCG TABLET (VITAMIN B-12) PO SCH (09:24)
[2020-01-01] MEDS: ATORVASTATIN 40 MG TAB PO SCH (09:24)
[2020-01-01] MEDS: ACETAMINOPHEN 500 MG TAB PO PRN ×2 (09:24→18:24)
[2020-01-01] MEDS: MULTIVITAMIN TAB PO SCH (09:24)
[2020-01-01] MEDS: MAGNESIUM OXIDE 400 MG TAB PO SCH (09:25)
[2020-01-01] MEDS: lisinopriL 5 MG TAB PO SCH (09:25)
[2020-01-01] MEDS: INSULIN ASPART 100 UNITS/ML 3 ML PEN SC SCH ×4 (09:27→20:28)
[2020-01-01] MEDS: VANCOMYCIN HCL 1,500 MG in SODIUM CHLORIDE 0.9% 500 ML IV SCH (16:06)
--- NOTE | 2020-01-01 17:30 | Hospitalist Progress Note ---
Date of Service January 01, 2020 Assessment & Plan (1) Fever and neutropenia: chemotherapy induced pancytopenia from r-CHOP treatment for CLL, was in prior to this cycle with similar including pulmonary infiltrates but a positive biofire at that time for viral pneumonia, re treated with chemo 12/23 now with pancytopenia/neutropenia and fever with pulmonary infiltrates again. negative procalcitonin Covid-Negative biofire-negative maintains on Vancomycin and Cefepime pt with anc of zero given additional neupogen, if fever persists may consider broadening coverage from solo Cefepime, and or performing additional diagnostic studies (2) Anemia: anemia of chronic disease and also anemia associated with chemotherapy will transfuse 2 units PRBC (3) Pneumonia: bibasilar infiltrates left greater than right, unclear clinical significance with negative pro lise and negative viral studies, on broad spectrum antibiotics due to neutroenia. as above may consider broadening coverage (4) Hypertension: remains controlled on lisinopril, is on aspirin and atorvastain for cardiovascular risk prevention (5) Chronic kidney disease: pt has chronic kidney disease stage 3, will avoid nephrotoxins (6) Diabetes mellitus, type 2: typically is on glimeparide, now on ssi, no long acting insulin yet, pt has lost appetite will add boost glucose control (7) Hypothyroidism: continues on synthroid (8) DVT prophylaxis: chemoprophylaxis contraindicated due to low platelet counts Admission and Anticipated Discharge Date Admission Date: December 30, 2019 Subjective Patient continues to be febrile but has no focal complaints or problems, he has had improvement in his colostomy output. He relates to me that he has a chronic rectal tube that was placed and remains in after he had his rectal abscess Review of Systems Review of Systems: Moderate distress and moderate fatigue no headache, blurry or double vision no speech or swallowing issues no chest pain, pressure or palpitations no shortness of breath, cough or wheezes no abdominal pain, nausea or vomiting, planes stool in colostomy bag is functioning well no dysuria, hematuria or frequency no focal joint pain or swelling no back pain, CVA tenderness or radicular pain no bruising, bleeding or rashes no focal signs of weakness or numbness or altered sensation no complaints or anxiety or depression. Physical Exam Physical Exam: The patient appeared chronically ill alopecic appears consistent with the patient undergoing chemotherapy Vital signs as documented. Head exam is normocephalic atraumatic no scleral icterus Neck is without JVD, thyromegaly, or carotid bruits. Lungs are clear to auscultation, no focal loss of breath sounds Cardiac exam, Rhythm is regular.. No murmurs, rubs or gallops. Abdominal exam reveals normal bowel sounds, soft non tender ostomy functioning the abdomen Extremities are nonedematous and both pedal pulses are normal. Neurologic exam is alert and oriented, no focal loss of strength or sensation Skin is without bruises or rashes Psychologically is without concerns for anxiety or depression Results & Data Results & Data ([facility]) Vital Signs (Past 12 Hours) Vital Signs Temp Pulse Resp BP Pulse Ox 01/01/20 14:46 101.5 F H 93 H 18 126/67 91 01/01/20 11:41 98.8 F 91 H 20 112/66 92 01/01/20 07:45 101.7 F H 99 H 18 116/67 93 01/01/20 06:00 18 95 PG Care Time/CCT Total # of Minutes Spent Total Time Spent with Patient: Total time spent is greater than 50% in coordination of care (as documented) at patient's floor/unit and/or counseling patient: Coding Level of Care Code 69210 Subseq Hosp Care Lvl 3 Diagnoses Fever and neutropenia D70.9; R50.81 Anemia D64.9 Pneumonia J18.9 Laterality: bilateral Lung location: lower lobe of lung Pneumonia type: due to unspecified organism Hypertension I10 Chronic kidney disease N18.9 Chronic kidney disease stage: unspecified stage Diabetes mellitus, type 2 E11.9 Hypothyroidism E03.9 DVT prophylaxis Z29.9 (1) Pneumonia Laterality: bilateral Lung location: lower lobe of lung Pneumonia type: due to unspecified organism Qualified Code(s): J18.9 - Pneumonia, unspecified organism (2) Chronic kidney disease Chronic kidney disease stage: unspecified stage Qualified Code(s): N18.9 - Chronic kidney disease, unspecified
[2020-01-01] MEDS: VALACYCLOVIR HCL 500 MG TABLET PO SCH (20:29)
[2020-01-02] MEDS: CEFEPIME 2,000 MG in SYRINGE 7.5 ML IV SCH ×3 (00:47→16:24)
[2020-01-02] MEDS ORDERED: VANCOMYCIN TROUGH ONE (03:30)
[2020-01-02] MEDS: ONDANSETRON 8MG OD TAB PO PRN (03:40)
[2020-01-02] MEDS: HEPARIN 100 UNIT/ML 5ML FLUSH FLUSH PRN ×3 (03:47→16:24)
[2020-01-02 04:19] LABS: BUN Creatinine Ratio 15.1 (10-20); Calcium 7.6 mg/dl (8.5-10.1); Creatinine Clr Calc Pharmacy 64.8 ml/min; Est GFR (African American) 62.1; Est GFR (Non-African American) 53.6; Potassium 3.3 mmol/L (3.5-5.1)
[2020-01-02] MEDS: ACETAMINOPHEN 500 MG TAB PO PRN (04:34)
[2020-01-02 04:41] LABS: Hematocrit (blood only) 23.2 % (42-52); Mean Corpuscular Hemoglobin 30.8 pg (25-34); Mean Corpuscular Hgb Conc 34.5 g/dL (32-36); Mean Corpuscular Volume 89.2 fL (80-100); Platelet Count 14 K/uL (130-400); RDW Coefficient of Variation 16.1 % (11.5-14.5); RDW Standard Deviation 52.9 fL (36.4-46.3); White Blood Count 1.97 K/uL (4.8-10.8)
[2020-01-02 04:47] LABS: Echinocytes 1+; Lymphocytes # (auto) 1.95 K/uL (1.2-3.4); Monocytes # (auto) 0.02 K/uL (0.11-0.59); Ovalocytes 1+; Schistocytes Occasional; Smudge Cells Present
[2020-01-02] MEDS: LEVOTHYROXINE SODIUM 50 MCG TABLET PO SCH (06:43)
--- NOTE | 2020-01-02 07:50 | Hospitalist Progress Note ---
Date of Service January 02, 2020 Assessment & Plan (1) Fever and neutropenia: chemotherapy induced pancytopenia from r-CHOP treatment for CLL, was in prior to this cycle with similar including pulmonary infiltrates but a positive biofire at that time for viral pneumonia, re treated with chemo 12/23 now with pancytopenia/neutropenia and fever with pulmonary infiltrates again. negative procalcitonin Covid-Negative biofire-negative maintains on Vancomycin and Cefepime pt with anc of zero given additional neupogen, if fever persists may consider broadening coverage from solo Cefepime, and or performing additional diagnostic studies (2) Roselyn esophagitis: pt will be on iv fluconazole, po nystatin and magic swizzle, with next fever will do fungal blood cultures (3) Anemia: anemia of chronic disease and also anemia associated with chemotherapy s/p transfusion 2 units PRBC 01/01/20 remains pancytopenic associated with chemotherapy and platelet counts are dropping but no signs of active bleeding at this time (4) Pneumonia: bibasilar infiltrates left greater than right, unclear clinical significance with negative pro lise and negative viral studies, on broad spectrum antibiotics due to neutroenia with persistent fever now concerns for fungal infection, staring with fluconazole check blood cultures for fungi. nasal mrsa is negative at this time (5) Hypertension: remains controlled on lisinopril, is on aspirin and atorvastain for cardiovascular risk prevention (6) Chronic kidney disease: pt has chronic kidney disease stage 3, will avoid nephrotoxins (7) Diabetes mellitus, type 2: typically is on glimeparide, now on ssi, no long acting insulin yet, pt has lost appetite will add boost glucose control (8) Hypothyroidism: continues on synthroid (9) DVT prophylaxis: chemoprophylaxis contraindicated due to low platelet counts Admission and Anticipated Discharge Date Admission Date: December 30, 2019 Subjective Patient continues to be febrile and now has complaints of painful swallowing and has evidence of thrush in his posterior pharynx, his anc remains at zero, will start treating for candidal esophagitis, he has had improvement in his colostomy output. He relates to me that he has a chronic rectal tube that was placed and remains in after he had initial colostomy placed Review of Systems Review of Systems: Moderate distress and moderate fatigue no headache, blurry or double vision painful swallowing no chest pain, pressure or palpitations no shortness of breath, cough or wheezes no abdominal pain, nausea or vomiting, planes stool in colostomy bag is functioning well no dysuria, hematuria or frequency no focal joint pain or swelling no back pain, CVA tenderness or radicular pain no bruising, bleeding or rashes no focal signs of weakness or numbness or altered sensation no complaints or anxiety or depression. Physical Exam Physical Exam: The patient appeared chronically ill alopecic appears consistent with the patient undergoing chemotherapy Vital signs as documented. oral pharynx is with thrush Head exam is normocephalic atraumatic no scleral icterus Neck is without JVD, thyromegaly, or carotid bruits. Lungs are clear to auscultation, no focal loss of breath sounds Cardiac exam, Rhythm is regular.. No murmurs, rubs or gallops. Abdominal exam reveals normal bowel sounds, soft non tender ostomy functioning the abdomen Extremities are nonedematous and both pedal pulses are normal. Neurologic exam is alert and oriented, no focal loss of strength or sensation Skin is without bruises or rashes Psychologically is without concerns for anxiety or depression Results & Data Results & Data ([facility]) Vital Signs (Past 12 Hours) Vital Signs Temp Pulse Pulse Resp BP BP Pulse Ox 01/02/20 07:43 97.7 F 81 18 132/75 96 01/02/20 03:30 102.4 F H 107 H 18 131/73 93 01/02/20 00:15 99.0 F 96 H 20 138/80 94 01/01/20 23:50 99.0 F 96 H 20 138/80 94 01/01/20 22:23 98.2 F 92 H 18 136/80 96 01/01/20 22:08 98.2 F 81 18 114/63 94 01/01/20 22:04 98.8 F 93 H 18 113/65 94 01/01/20 21:51 99.5 F 93 H 18 106/62 94 01/01/20 21:16 99.7 F H 93 H 20 118/69 01/01/20 20:47 101.5 F H 98 H 20 120/68 93 01/01/20 20:16 101.7 F H 98 H 18 127/72 93 PG Care Time/CCT Total # of Minutes Spent Total Time Spent with Patient: Total time spent is greater than 50% in coordination of care (as documented) at patient's floor/unit and/or counseling patient: Coding Level of Care Code 63759 Subseq Hosp Care Lvl 3 Diagnoses Fever and neutropenia D70.9; R50.81 Roselyn esophagitis B37.81 Anemia D64.9 Pneumonia J18.9 Laterality: bilateral Lung location: lower lobe of lung Pneumonia type: due to unspecified organism Hypertension I10 Chronic kidney disease N18.9 Chronic kidney disease stage: unspecified stage Diabetes mellitus, type 2 E11.9 Hypothyroidism E03.9 DVT prophylaxis Z29.9 (1) Chronic kidney disease Chronic kidney disease stage: unspecified stage Qualified Code(s): N18.9 - Chronic kidney disease, unspecified (2) Pneumonia Laterality: bilateral Lung location: lower lobe of lung Pneumonia type: due to unspecified organism Qualified Code(s): J18.9 - Pneumonia, unspecified organism
[2020-01-02] MEDS: VANCOMYCIN HCL 1,500 MG in SODIUM CHLORIDE 0.9% 500 ML IV SCH (08:33)
[2020-01-02] MEDS: INSULIN ASPART 100 UNITS/ML 3 ML PEN SC SCH ×4 (08:37→20:45)
--- NOTE | 2020-01-02 09:34 | Pharmacy Report ---
Pharmacy Abx Dose Short Note - Date of Service January 02, 2020 - Assessment & Plan Assessment 64 year old M receiving IV Cefepime & Vancomycin for treatment of pneumonia, fever, neutropenia. Day # 4 of antimicrobial therapy. Patient receiving Vancomycin 1500mg IV Q16H (never changed to Q14H as previously noted by pharmacy). Renal fx stable. Plan Vancomycin * Trough level of 21.3 mcg/mL is slightly supratherapeutic, but level was drawn 4 hours early * Continue dose of 1500 mg IV every 16 hours * Goal trough level for pneumonia : 15 to 20 mcg/mL * Trough level ordered for: 01/04/20 Pharmacy will continue to follow and will adjust dose/frequency as necessary. Gabbi mcgee.
[2020-01-02] MEDS ORDERED: FLUCONAZOLE 200 MG/100 ML BAG IV SCH (10:00)
[2020-01-02] MEDS: LIDOCAINE HCL 2% VISCOUS 60 ML, DiphenhydrAMINE Syrup 150 MG, ALUMINUM/MAGNESIUM SUSP 6... PO PRN ×2 (11:12→20:42)
[2020-01-02] MEDS: MAGNESIUM OXIDE 400 MG TAB PO SCH (11:15)
[2020-01-02] MEDS: OMEGA-3 (PURIFIED FISH OIL) 1 GM CAP PO SCH (11:15)
[2020-01-02] MEDS: POTASSIUM CHLORIDE 20 MEQ TABCR PO SCH ×2 (11:15→20:46)
[2020-01-02] MEDS: ATORVASTATIN 40 MG TAB PO SCH (11:15)
[2020-01-02] MEDS: ASPIRIN 81 MG ECTAB PO SCH (11:15)
[2020-01-02] MEDS: MULTIVITAMIN TAB PO SCH (11:15)
[2020-01-02] MEDS: CYANOCOBALAMIN 500 MCG TABLET (VITAMIN B-12) PO SCH (11:15)
[2020-01-02] MEDS: lisinopriL 5 MG TAB PO SCH (11:16)
[2020-01-02] MEDS: NYSTATIN SUSP 500,000 U/5 ML UDC PO SCH ×2 (17:36→20:42)
[2020-01-02] MEDS: VALACYCLOVIR HCL 500 MG TABLET PO SCH (20:45)
[2020-01-02] MEDS ORDERED: ONDANSETRON INJ 2 MG/ML 2 ML VIAL IV PRN (21:21)
[2020-01-02] MEDS: SODIUM CHLORIDE 0.9% 1000ML 1,000 ML IV SCH (21:33)
[2020-01-03] MEDS: CEFEPIME 2,000 MG in SYRINGE 7.5 ML IV SCH ×2 (00:44→08:30)
[2020-01-03] MEDS: VANCOMYCIN HCL 1,500 MG in SODIUM CHLORIDE 0.9% 500 ML IV SCH (00:45)
[2020-01-03] MEDS: SODIUM CHLORIDE 0.9% 1000ML 1,000 ML IV SCH (05:56)
[2020-01-03] MEDS: LEVOTHYROXINE SODIUM 50 MCG TABLET PO SCH (05:56)
[2020-01-03 07:00] LABS: Hematocrit (blood only) 22.2 % (42-52); Hemoglobin 7.3 g/dL (14.0-18.0); Mean Corpuscular Hgb Conc 32.9 g/dL (32-36); Mean Corpuscular Volume 91.4 fL (80-100); RDW Coefficient of Variation 16.4 % (11.5-14.5); RDW Standard Deviation 54.7 fL (36.4-46.3); Red Blood Count 2.43 M/uL (4.7-6.1)
[2020-01-03 07:04] LABS: BUN Creatinine Ratio 14.8 (10-20); Calcium 8.1 mg/dl (8.5-10.1); Creatinine Clr Calc Pharmacy 64.5 ml/min; Est GFR (African American) 62.1; Est GFR (Non-African American) 53.6; Potassium 3.2 mmol/L (3.5-5.1)
[2020-01-03 07:19] LABS: Platelet Count 18 K/uL (130-400)
[2020-01-03 07:24] VITALS: BP 132/61; TEMP 99.9; O2SAT 94
[2020-01-03] MEDS ORDERED: POTASSIUM CHLORIDE 40 MEQ in SODIUM CHLORIDE 0.9% 1000ML 1,000 ML IV SCH (07:30)
[2020-01-03 07:32] LABS: Lymphocytes # (auto) 1.38 K/uL (1.2-3.4); Lymphocytes % (auto) 98.6 %; Monocytes # (auto) 0.01 K/uL (0.11-0.59); Monocytes % (auto) 0.7 %; Neutrophils # (auto) 0.01 K/uL (1.4-6.5); Neutrophils % (auto) 0.7 %; Ovalocytes 1+; Schistocytes Occasional; Smudge Cells Present; Spherocytes Occasional
[2020-01-03] MEDS: NYSTATIN SUSP 500,000 U/5 ML UDC PO SCH (08:12)
[2020-01-03] MEDS: ATORVASTATIN 40 MG TAB PO SCH (08:13)
[2020-01-03] MEDS: ASPIRIN 81 MG ECTAB PO SCH (08:13)
[2020-01-03] MEDS: VALACYCLOVIR HCL 500 MG TABLET PO SCH (08:14)
[2020-01-03] MEDS: lisinopriL 5 MG TAB PO SCH (08:15)
[2020-01-03] MEDS: INSULIN ASPART 100 UNITS/ML 3 ML PEN SC SCH (08:17)
[2020-01-03] MEDS ORDERED: VORICONAZOLE IV SCH (09:00)
[2020-01-03] MEDS ORDERED: SODIUM CHLORIDE 0.9% IV SCH (09:00)
[2020-01-03] MEDS: MAGNESIUM OXIDE 400 MG TAB PO SCH (09:38)
[2020-01-03] MEDS: OMEGA-3 (PURIFIED FISH OIL) 1 GM CAP PO SCH (09:38)
[2020-01-03] MEDS: MULTIVITAMIN TAB PO SCH (09:38)
[2020-01-03] MEDS: CYANOCOBALAMIN 500 MCG TABLET (VITAMIN B-12) PO SCH (09:38)
[2020-01-03] MEDS: POTASSIUM CHLORIDE 20 MEQ TABCR PO SCH (09:38)
--- NOTE | 2020-01-03 11:01 | Consultation Report ---
DATE OF CONSULTATION: 01/03/2020 REASON FOR CONSULTATION: Neutropenic fever in a 64-year-old gentleman with relapsed chronic lymphocytic leukemia. HISTORY OF PRESENT ILLNESS: The patient is a pleasant, but unfortunate 64-year-old gentleman with refractory chronic lymphocytic leukemia, admitted to [facility] on 12/30/2019 with neutropenic fever. This gentleman has been battling CLL for about 6 years now. Unfortunately, he has been refractory to all therapies to date. This gentleman was heavily pretreated, received rituximab and bendamustine initially in 2013 and 2014, but unfortunately his disease has been refractory. Dr. Heaton, hosiery pairer/oncologist at [facility] also sees the patient and helps us with management. Earlier this month, Dr. Heaton had recommended R-CHOP. His initial dose was administered on 12/03/2019. For the most part well tolerated; however, was admitted for neutropenic fever. Cycle #2 is administered on December 23 with the same result. The patient received granulocyte colony stimulating growth factor post cycle #2. He presented with a low-grade fever and thus far blood cultures revealed 1 culture positive for alpha strep. The patient is also battling with mucositis and perhaps oral candidiasis. Hospitalist Service states he has not taken anything orally over the last 24-48 hours. His last fever spike was at 3:30 in the morning of January 01 of 39.1. The patient is devoid of complaint with the exception of stomatitis and poor p.o. intake. Hospitalist contacted me today because of refractory neutropenia despite receiving both Neulasta and Neupogen. PAST MEDICAL HISTORY: Significant for chronic kidney disease, refractory chronic lymphocytic leukemia, type 2 diabetes mellitus, hyperlipidemia, hypertension, hypothyroidism, lower extremity edema, anorectal perforation with associated abscess diagnosed in December of 2008 status post seton placement and colostomy. PAST SURGICAL HISTORY: Again anal abscess, history of right cataract extraction, wisdom teeth extraction, MediPort left chest, status post bone marrow biopsy x2, status post lymph node biopsy most recently in 11/2019. CURRENT MEDICATIONS: Include valacyclovir 500 mg p.o. daily, ciprofloxacin 500 mg p.o. b.i.d., Magic mouthwash 5 mL swish and swallow q.i.d. p.r.n., Compazine 10 mg p.o. q. 6 hours p.r.n., Zofran 8 mg p.o. 8 hours p.r.n., aspirin 81 mg p.o. daily, glyburide 4 mg p.o. daily, omega-3 fish oil 1 capsule p.o. daily, magnesium 250 mg p.o. daily, atorvastatin 40 mg p.o. daily, lisinopril 5 mg p.o. daily, Coenzyme Q10 100 mg p.o. daily, vitamin B12 1000 mcg p.o. daily. ALLERGIES: IBRUTINIB AND NONSTEROIDAL ANTI-INFLAMMATORY AGENTS. FAMILY HISTORY: Father suffered from diabetes mellitus, TIA. Mother succumbed to cancer. Has brother with cancer. SOCIAL HISTORY: The patient is , has 2 children. He is a nonsmoker, nondrinker. REVIEW OF SYSTEMS: CONSTITUTIONAL: As per HPI, most notably for intermittent fever. He is not currently anorexic or losing weight. Positive for stomatitis. SKIN: No rashes or lesions. No history of dermatoses. HEENT: Negative for headaches, lightheadedness or dizziness. No acute visual or hearing deficits. No sinus symptoms. Positive for sore throat. Negative for dysphagia. LYMPH: Positive for relapsed chronic lymphocytic leukemia, most prominently left axillary region. HEART: Negative for coronary artery disease. No angina or palpitations. PULMONARY: He is not short of breath, dyspneic or orthopneic. No cough or hemoptysis. GASTROINTESTINAL: Negative for abdominal pain. No nausea or vomiting. No diarrhea or constipation. GENITOURINARY: No hematuria, dysuria or urinary incontinence. PSYCHIATRIC: Negative for anxiety, depression or psychoses. MUSCULOSKELETAL: No focal muscle weakness. No arthralgias or myalgias. ENDOCRINE: Positive for diabetes mellitus. NEUROLOGIC: Negative for seizure, stroke or migraine headache. HEMATOLOGIC: Positive for cytopenias attributable to chemotherapy. PHYSICAL EXAMINATION: GENERAL: The patient is a very pleasant 64-year-old gentleman, awake, alert and appropriate, in no acute distress. VITAL SIGNS: Temperature 37.7, pulse 86, respiratory rate 16, blood pressure 132/61. SKIN: Warm, dry, noncyanotic without petechia, rash or ecchymosis. HEENT: Head is atraumatic, normocephalic. Eyes: PERRLA, EOMI. Nares patent without rhinorrhea or discharge. Throat clear. He does have some erythema and streaking of the buccal mucosa consistent with mucositis no evidence of thrush this morning. NECK: Supple without JVD or thyromegaly. LYMPH: Large palpable axillary lymph node approximately 6-7 cm in diameter, soft on palpation, nonpainful. HEART: Regular rate and rhythm. No clicks, rubs, murmurs or gallops. LUNGS: Clear to auscultation bilaterally. ABDOMEN: Soft, nontender, nondistended without palpable hepatosplenomegaly. EXTREMITIES: No calf tenderness or swelling. No clubbing, cyanosis or edema. NEUROLOGICAL: He is awake, alert and oriented x3. Cranial nerves II-XII are grossly intact. LABORATORY DATA: WBC count 1400, hemoglobin 7.3, platelet count 18,000. Absolute neutrophil count 10. Sodium 143, potassium 3.2, chloride 112, carbon dioxide 24, creatinine 1.39, BUN 21. IMPRESSION: 1. Neutropenic fever. 2. Bacteremia (alpha strep). 3. Relapsed chronic lymphocytic leukemia. 4. Pancytopenia attributable to chemotherapeutic effect. 5. Hypomagnesemia. 6. Type 2 diabetes mellitus. 7. Chronic renal insufficiency. PLAN: The patient is a very pleasant, complex 64-year-old gentleman well known to [facility], [place] and the [facility], currently under care for relapsed chronic lymphocytic leukemia. This gentleman unfortunately has been heavily pretreated and thus not surprising the profound myelosuppression currently taking place. This gentleman has had 2 cycles of R-CHOP and has been hospitalized after each course. The patient presently follows with Dr. Heaton at [facility] and felt compelled to treat him with R-CHOP because of the aggressiveness of the patient's lymphoproliferative disease. However, I would argue at this point, because of his poor tolerance, either a delay R-CHOP moving forward to every 28-35 days or perhaps taking Adriamycin out of the mix and proceeding with R-CVP moving forward. The patient's p.o. intake has not been the best over the past couple of days because of mucositis. He is receiving local care and hopefully over the next 24 hours, he will increase his caloric intake. Agree with current medical management. If his platelet count falls below 15,000, would advocate transfusion of single donor apheresis. Once he is medically stable, I will make arrangements for outpatient followup. Again, do not believe the patient will be stable enough to receive cycle #3 at the presently scheduled time. We will engage in discussion with the patient during outpatient followup. I have nothing further to add at this time. Agree with current medical management. MTDD
[2020-01-03 11:51] VITALS: PULSE 91
--- NOTE | 2020-01-03 16:39 | Discharge Summary ---
Date of Service January 03, 2020 Admission HPI Per Admitting Provider Attending: Dr. Newton This is a 64-year-old male with a history of CLL and prior history of pancytopenia, diabetes mellitus type 2, hypothyroidism, microcytic anemia, thrombocytopenia, history of TIA/CVA, Lopez, hypertension, tumor lysis syndrome, paronychia, lymphadenopathy of the lower extremity. The patient presents with elevated fever. He reports that he had chemotherapy on December 24, 2019 with R-CHOP. He states that he got a dose of Neulasta on the day of therapy and the day after. He states that over the last couple of days it seems like his fever is getting worse. He has no cough, sputum production, nausea, vomiting. He does have a colostomy bag in place and stool has been loose to watery but is typical with his normal output. He has no recent travel or sick contacts. 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 He is not aware that she has had any contact with sick patients or COVID patients. He has no recent travel. He states his appetite is good and he has no early satiety. For his diabetes he does not take insulin but he does use glimepiride and states that his diabetes has been generally controlled. He has no awareness of palpitations and denies chest pain or tightness. He has no other acute complaints. Principal Diagnosis Pancytopenia secondary to chemotherapy Neutropenic fever Concerns for candidal esophagitis Discharge Exam The patient appeared chronically ill Vital signs as documented Oral exam did not show mucositis there was evidence of thrush on 01/02/2020. Lungs are coarse rales at the base Cardiac exam, Rhythm is regular.. No murmurs, rubs or gallops. Abdominal exam reveals normal bowel sounds, soft non tender, no masses Extremities are mildly edematous and both pedal pulses are normal. Neurologic exam is alert and oriented, no focal loss of strength or sensation Skin is with areas of bruising secondary low platelet count Psychologically is without concerns for anxiety or depression Discharge Data Allergies Allergy/AdvReac Type Severity Reaction Status Date / Time ibrutinib [From Imbruvica] Allergy Intermediate LOOKED Verified 12/30/19 11:58 LIKE A LEOPARD SPOTTED ALL OVER NSAIDS (Non-Steroidal AdvReac Unknown DUE TO Verified 12/30/19 11:58 Anti-Inflamma DECREASED KIDNEY FUNCTION Consultations 12/30/19 13:21 ED Decision to Admit Stat 12/31/19 11:09 HIM [Consult Health Information Management] Stat 01/03/20 08:14 Consult Hematology Routine Hospital Course (1) Fever and neutropenia: chemotherapy induced pancytopenia from r-CHOP treatment for CLL, was in prior to this cycle with similar including pulmonary infiltrates but a positive biofire at that time for viral pneumonia, re treated with chemo 12/23 now with pancytopenia/neutropenia and fever with pulmonary infiltrates again. negative procalcitonin Covid-Negative biofire-negative Will be discharged home on cefdinir and fluconazole Patient remains neutropenic over after discussion with Dr. Johnson the patient adamantly wanted to go home. I instructed the patient that this was not my first choice and I would rather him stay in the hospital he was counseled improved somewhat. Patient states that he could do better at home with liquid diet to improve his swallowing. Encouraged and have close follow-up with Dr. Young (2) Roselyn esophagitis: pt will be on Diflucan and nystatin swish and swallow (3) Anemia: anemia of chronic disease and also anemia associated with chemotherapy s/p transfusion 2 units PRBC 01/01/20 remains pancytopenic associated with chemotherapy and low platelet counts (4) Pneumonia: bibasilar infiltrates left greater than right, unclear clinical significance with negative pro lise and negative viral studies, . nasal mrsa is negative Will be discharged on cefdinir 1 of 4 blood cultures grew out for strep (5) Hypertension: remains controlled on lisinopril, is on aspirin and atorvastain for cardiovascular risk prevention (6) Chronic kidney disease: pt has chronic kidney disease stage 3, (7) Diabetes mellitus, type 2: typically is on glimeparide, continues with add boost glucose control (8) Hypothyroidism: continues on synthroid Total Time Total Time Spent Total Time Spent (In Minutes): It required greater than 30 minutes to prepare this patient for discharge Discharge Plan Discharge Items Patient Disposition: Home - Self-Care Reason For Visit: NEUTROPENIC FEVER Discharge Diagnosis: neutropenic fever Condition on Discharge: Good Activity: Per Instructions section Non-emergency contact: Primary Care Provider and Oncologist Call non-emergency contact if: you have any medication questions Follow-up/Referrals: Vinnie Crawford MD [Primary Care Provider] - (PLEASE CONTACT [facility] [place] POST DISCHARGE FOLLOW-UP APPOINTMENT) Kolton Morillo DO [Physician] - 01/14/20 10:10 am Diet: Regular Addtl Attending Provider Instructions: please follow up with Dr Morillo Pending Studies at Discharge: No Stand-Alone Forms: My [facility], Smoking Cessation Medications and DC Order Prescriptions: New nystatin 100,000 unit/mL Suspension 5 ml PO QID Qty: 200 RF: 0 fluconazole [Diflucan] 200 mg tablet 200 mg PO DAILY 70 Days Qty: 7 RF: 0 cefdinir 300 mg capsule 300 mg PO BID 5 Days Qty: 10 RF: 0 Continued lisinopril 5 mg tablet 5 mg PO QAM Qty: 90 RF: 3 atorvastatin 40 mg tablet 40 mg PO QAM Qty: 90 RF: 3 glimepiride 2 mg tablet 4 mg PO QAM Qty: 60 RF: 6 (DME) blood sugar diagnostic [[employer] Ultra Blue Test Strip] Strip See Rx Instructions .ROUTE .MEDSUPPLY Qty: 300 RF: 3 multivitamin Tablet 1 tab PO QAM RF: 0 cyanocobalamin (vitamin B-12) 1,000 mcg Tablet 1,000 mcg PO QAM RF: 0 coenzyme Q10 [Co Q-10] 100 mg Capsule 100 mg PO QAM RF: 0 aspirin 81 mg Tablet,Delayed Release (Dr/Ec) 81 mg PO QAM RF: 0 ondansetron HCl 8 mg tablet 8 mg PO Q8H PRN (Reason: Nausea) RF: 0 prochlorperazine maleate 10 mg tablet 10 mg PO Q6H PRN (Reason: Nausea) RF: 0 levothyroxine 50 mcg tablet 25 - 50 mcg PO QAM RF: 0 acetaminophen [Tylenol] 325 mg capsule 650 mg PO Q6H PRN (Reason: Fever Or Pain) RF: 0 Magic Mouthwash 300 mL mouthwash 5 ml mucous membrane ACHS PRN (Reason: swish/swallow) Qty: 300 RF: 1 hydrocortisone 2.5 % cream 1 applic TOPICAL BID PRN (Reason: Eczema) RF: 0 omega 1-fmi-gfu-fish oil [Fish Oil] 1,000 mg (120 mg-180 mg) Capsule 1 cap PO QAM RF: 0 magnesium 250 mg Tablet 250 mg PO QAM RF: 0 Digestive Advantage Prob Gummy 250 million cell Tablet,Chewable 1 cell PO QAM RF: 0 valacyclovir 500 mg tablet 500 mg PO PM RF: 0 Discontinued ciprofloxacin HCl 500 mg Tablet 500 mg PO Q12H RF: 0 Discharge Orders: Discharge Order (Routine); Ordered 01/03/20 Ordered By: Shayan Forrest Admission Data Admit Date/Time: 12/30/19 14:32 Attending Provider: Shayan Forrest Admit Provider: Opal Newton Primary Care Provider: Vinnie Crawford Other Providers: Opal Newton ; Kolton Morillo V. Other Interventions: Discharge Summary Assessment (RN) Last Done: 01/03/20 11:50 DC Date/Time DO NOT enter until pt leaves facility: 01/03/20 12:44 Coding Level of Care Code D/C Day Management >30 mins Diagnoses Fever and neutropenia D70.9; R50.81 Roselyn esophagitis B37.81 Anemia D64.9 Pneumonia J18.9 Laterality: bilateral Lung location: lower lobe of lung Pneumonia type: due to unspecified organism Hypertension I10 Chronic kidney disease N18.9 Chronic kidney disease stage: unspecified stage Diabetes mellitus, type 2 E11.9 Hypothyroidism E03.9
[2020-01-04] MEDS ORDERED: VANCOMYCIN TROUGH ONE (07:30)
[2020-01-04] MEDS ORDERED: VORICONAZOLE IV SCH (09:00)
[2020-01-04] MEDS ORDERED: SODIUM CHLORIDE 0.9% IV SCH (09:00)
== END 2020-01-03 12:44 | disposition home or self-care (01) | DRG 808 ==
LOC: ED 11:09 → 2W 14:32 → SUATTDRO 14:32 → 2W 15:53

== ENCOUNTER 2023-01-30 16:45 | Inpatient (IN) ==
[2023-01-30] MEDS ORDERED: SODIUM CHLORIDE 0.9% 1,000 ML IV STA (17:06)
--- NOTE | 2023-01-30 17:06 | ED Triage Note ---
Date of Service January 30, 2023 History of Present Illness This patient was briefly evaluated while in triage. An abbreviated physical exam was performed. This patient is a 67-year-old Male who presents to the ED for evaluation of abnormal renal function testing done this am. Was recently admitted to [facility] with a right lower abdominal hematoma of a lymph node, did get transfusions while admitted and was discharged Friday. He complains of some lower abdominal and groin pain. Reports dark, decreased urination. No fevers or chills. Lower extremity edema is worse than usual also. Patient reports the hematoma was pressing on his bladder in previous imaging. Physical Exam CONSTITUTIONAL: No acute distress. Well appearing. RESPIRATORY: Clear to auscultation bilaterally. Equal expansion bilaterally. CARDIOVASCULAR: Regular rate and rhythm. Bilateral peripheral edema. GASTROINTESTINAL: Soft, lower abdominal tenderness. No CVA tenderness. NEUROLOGIC: Alert and oriented X 4 with normal affect. Initial orders for labs and / or imaging were placed and patient was placed in the waiting area until a bed is available. Please see further documentation for the full ED course.
[2023-01-30 17:43] LABS: Hematocrit (blood only) 25.9 % (42.0-52.0); Hemoglobin 8.3 g/dl (14.0-18.0); Mean Corpuscular Hemoglobin 33.1 pg (25.0-34.0); Mean Corpuscular Volume 103.2 fL (80.0-100.0); Mean Platelet Volume 12.1 fL (9.4-12.4); Platelet Count 42 K/uL (130-400); RDW Coefficient of Variation 17.9 % (11.5-14.5); RDW Standard Deviation 66.4 fL (36.4-46.3); Red Blood Count 2.51 M/uL (4.70-6.10)
[2023-01-30] MEDS ORDERED: SODIUM CHLORIDE 0.9% 1,000 ML IV ONE (17:52)
--- NOTE | 2023-01-30 17:56 | Emergency Department Note ---
Impression & Plan ANJUM (acute kidney injury), CLL (chronic lymphocytic leukemia), Weakness, Dehydration ED Provider Note NAME: PRISCILLA PEREZ AGE: 67 SEX: M : 1955 ARRIVES VIA: Walk-In INFORMANT: Patient ED PROVIDER(S): Venkat Dodd DO CHIEF COMPLAINT: weakness HPI: Patient is a 67-year-old male with a past medical history of CLL and recent retroperitoneal bleed which occurred around the of this month. He has been admitted to [facility] discharged and readmitted and discharged this past Friday. He notes that he was doing well but they checked his blood work as he has been feeling weak and has been eating and drinking less and his creatinine has significantly increased. Denies any headache or change in vision. No chest pain or shortness of breath. No nausea, vomiting, or diarrhea. Denies less output through his ostomy. Does have swelling in the legs which is worse than previous. PAST MEDICAL HISTORY:See Below PAST SURGICAL HISTORY:See Below FAMILY HISTORY:See Below SOCIAL HISTORY:See Below HOME MEDICATIONS:See Below ALLERGIES:See Below VITALS:See Below PHYSICAL EXAMINATION: GENERAL: Sitting up in bed, alert, ill-appearing, disheveled EYE EXAM: normal conjunctiva. OROPHARYNX: no exudate, no erythema, lips, buccal mucosa, and tongue normal and mucous membranes are moist NECK: supple, no nuchal rigidity, no adenopathy, non-tender LUNGS: Clear to auscultation. Normal chest wall mechanics HEART: no murmurs, S1 normal and S2 normal ABDOMEN: abdomen soft, non-tender, normo-active bowel sounds, no masses, no rebound or guarding. UPPER EXTREMITIES: upper extremities are grossly normal. LOWER EXTREMITIES: Pitting edema of the lower extremities NEURO EXAM: Normal sensorium, cranial nerves II-XII grossly intact, normal speech, no gross weakness of arms, no gross weakness of legs. MEDICAL DECISION MAKING: Patient is a 67-year-old male who presents ER for the above-stated complaint. IV was established blood work is obtained. External records reviewed. Labs show mild leukocytosis 17,000 slightly up from previous but does have a history of CLL. Hemoglobin 8.3 consistent with previous. Thrombocytopenia 42 which is improved from his last. Creatinine at 3.03. Recent discharge from [facility] shows creatinine at 1.47. LFTs bilirubin was unremarkable. Troponin negative. Lipase negative. CT abdomen pelvis shows decrease in size of the previous bleed which is consistent as his hemoglobin is currently stable from discharge previously. Patient was given IV fluids updated bedside discussed with the hospitalist minute for further work-up of his ANJUM. Triage Nursing notes reviewed. Limited review of prior medical records performed Vital Signs: reviewed and remarkable for hypotension Differential diagnosis: Infection, dehydration, metabolic abnormality, hypo/hyperglycemia, electrolyte disturbance, anemia, hypoxia, cardiac sources, intracerebral event, toxicologic, neurologic, as well as other pathologies. ER treatment provided: See below Diagnostics interpreted by me include EKG and cardiac monitoring as listed below: -Cardiac Monitoring: An order was placed for continuous cardiac monitoring. The monitor shows a rate of 80 with sinus rhythm. -ECG: none -Laboratory studies:Interpreted by me as stated above in MDM and shown below. Imaging studies: Xrays: As interpreted by me:none CTs show: CT abdomen pelvis per my read showed no obvious obstruction CT abdomen pelvis per radiology as described above Consultation(s): As described in MDM Procedures:none Critical Care: None Past Med/Surg History Medical History Anemia Bronchiolitis Cataract, left eye Chronic kidney disease Cirrhosis (01/19/19) CLL (chronic lymphocytic leukemia) (~2013) Diabetes mellitus, type 2 History of anesthesia problem Hyperlipidemia Hypertension Hypomagnesemia Hypothyroidism Lower extremity edema Lymphadenopathy Paronychia Port-A-Cath in place Presence of colostomy Stroke Thrombocytopenia Tinnitus of both ears Tumor lysis syndrome Surgical History H/O right cataract extraction History of bowel resection History of tooth extraction History of vascular access device S/P biopsy (~2019) S/P lymph node biopsy (11/11/19) Status post excisional biopsy (06/21/22) Family History Father TIA (transient ischemic attack) Diabetes Hypertension Mother Endometrial cancer Lupus Heart valve replaced Diabetes Brother Bladder cancer Diabetes Hypertension Sister Diabetes Daughter No problems noted. Daughter No problems noted. 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 How many Children do You have: 2 Feels Safe at Home: Yes Diet: other caffeine: Yes (1 cup/day) during the past year weight has: decreased > 10 lbs Assistive Devices: Other Allergies Allergies Allergy/AdvReac Type Severity Reaction Status Date / Time allopurinol Allergy Unknown Rash Verified 11/13/22 14:19 ibrutinib [From Imbruvica] Allergy Unknown LOOKED Verified 11/13/22 14:19 LIKE A LEOPARD SPOTTED ALL OVER NSAIDS (Non-Steroidal AdvReac Unknown DUE TO Verified 11/13/22 14:19 Anti-Inflamma DECREASED KIDNEY FUNCTION Home Meds Home Medications Medication Instructions Recorded Confirmed hydrocortisone 2.5 % topical cream 1 applic topical BID PRN Eczema 07/27/19 01/30/23 magnesium 250 mg tablet 400 mg PO PM 07/27/19 01/30/23 acetaminophen 325 mg capsule 650 mg PO Q6H PRN Fever Or Pain 12/10/19 01/30/23 (Tylenol) multivitamin 1 tab PO DAILY 02/21/22 01/30/23 acalabrutinib 100 mg capsule See Rx Instructions .Route .COMPLEX 06/20/22 01/30/23 (Calquence) calcium carbonate 600 mg-vitamin 1 tab PO PM 01/30/23 01/30/23 D3 5 mcg (200 unit) tablet oxycodone 5 mg tablet 5 mg PO DIRECTED 01/30/23 01/30/23 Previous Rx's Medication Instructions Recorded sildenafil 25 mg tablet 25 mg PO DAILY PRN sexual activity 06/19/21 #20 tabs blood-glucose meter #1 ea 11/20/21 lancets (Accu-Chek Softclix #100 ea 11/20/21 Lancets) blood sugar diagnostic #300 ea 11/23/21 atorvastatin 40 mg tablet 40 mg PO QAM #90 tabs 02/05/22 glimepiride 2 mg tablet 4 mg PO QAM #180 tabs 02/05/22 lisinopril 5 mg tablet 2.5 mg PO QAM #45 tabs 02/05/22 levothyroxine 50 mcg tablet 50 mcg PO QAM #30 tabs 11/15/22 dapagliflozin propanediol 5 mg 5 mg PO QAM #90 tabs 01/10/23 tablet (Farxiga) Results & Data (ED) Vital Signs Vital Signs - 24 hr 01/30/23 17:01 01/30/23 18:08 01/30/23 21:26 Temperature 36.9 C Temperature Source Temporal Artery Scan Pulse Rate 88 89 Pulse Rate [Right Finger] 81 Pulse Rhythm [Right Finger] Regular Respiratory Rate 18 18 Respiratory Effort / Characteristics Non-Labored Non-Labored Respiratory Depth Normal Normal Respiratory Pattern Regular Blood Pressure 95/62 L Blood Pressure [Left Arm] 94/65 L Blood Pressure Mean 73 Blood Pressure Mean [Left Arm] 74 Pulse Oximetry 97 97 Oxygen Delivery Method Room Air Room Air Sepsis Recent Fever Within 48 Hours No Sepsis New/Unexplained Change in Mental Status No Sepsis Action Taken by Nursing No Action Required Laboratory Data 01/30/23 17:22 01/30/23 17:22 Lab Results 01/30/23 01/30/23 01/30/23 Range/Units 17:22 17:22 18:02 WBC 17.70 H (4.8-10.8) K/ul RBC 2.51 L (4.70-6.10) M/uL Hgb 8.3 L (14.0-18.0) g/dl Hct 25.9 L (42.0-52.0) % MCV 103.2 H (80.0-100.0) fL MCH 33.1 (25.0-34.0) pg MCHC 32.0 (32.0-36.0) g/dL RDW Std Deviation 66.4 H (36.4-46.3) fL RDW Coeff of Leonela 17.9 H (11.5-14.5) % Plt Count 42 L (130-400) K/uL MPV 12.1 (9.4-12.4) fL Neutrophils % (Manual) 3 % Lymphocytes % (Manual) 80 % Prolymphocyte % 17 % Neutrophils # (Manual) 0.53 L (1.40-6.50) K/uL Total Absolute Neuts 0.53 L* (1.4-6.5) K/uL Lymphocytes # (Manual) 14.16 H (1.2-3.4) K/uL Prolymphocyte # 3.01 H (0-0) K/uL Total Abs Lymphocytes 17.17 H (1.2-3.4) K/uL Polychromasia 1+ Sodium 136 (136-145) mmol/L Potassium 4.8 (3.5-5.1) mmol/L Chloride 104 (98-107) mmol/L Carbon Dioxide 25 (21-32) mmol/L Anion Gap 7 (3-11) BUN 61 H (6-23) mg/dl Creatinine 3.03 H (0.6-1.4) mg/dl Est Cr Clr Drug Dosing Not Reportable Est GFR ( Amer) 23.7 ml/min Est GFR (Non-Af Amer) 20.4 ml/min BUN/Creatinine Ratio 20.1 H (10-20) Glucose 73 (70-99(Fasting)) mg/dl Calcium 9.1 (8.6-10.3) mg/dl Total Bilirubin 0.8 (0.2-1.0) mg/dl AST 19 (13-39) U/L ALT 9 (7-52) U/L Alkaline Phosphatase 84 (34-104) U/L Troponin I High Sens (0-20) pg/ml B-Natriuretic Peptide (0-100) pg/ml Total Protein 5.4 L (6.0-8.3) gm/dl Albumin 3.4 (3.4-5.0) gm/dl Globulin 2.0 L (2.5-4.0) gm/dl Albumin/Globulin Ratio 1.7 (0.9-2) Lipase 16 (11-82) U/L Blood Type O Negative Antibody Screen NEGATIVE 01/30/23 01/30/23 Range/Units 18:02 18:02 WBC (4.8-10.8) K/ul RBC (4.70-6.10) M/uL Hgb (14.0-18.0) g/dl Hct (42.0-52.0) % MCV (80.0-100.0) fL MCH (25.0-34.0) pg MCHC (32.0-36.0) g/dL RDW Std Deviation (36.4-46.3) fL RDW Coeff of Leonela (11.5-14.5) % Plt Count (130-400) K/uL MPV (9.4-12.4) fL Neutrophils % (Manual) % Lymphocytes % (Manual) % Prolymphocyte % % Neutrophils # (Manual) (1.40-6.50) K/uL Total Absolute Neuts (1.4-6.5) K/uL Lymphocytes # (Manual) (1.2-3.4) K/uL Prolymphocyte # (0-0) K/uL Total Abs Lymphocytes (1.2-3.4) K/uL Polychromasia Sodium (136-145) mmol/L Potassium (3.5-5.1) mmol/L Chloride (98-107) mmol/L Carbon Dioxide (21-32) mmol/L Anion Gap (3-11) BUN (6-23) mg/dl Creatinine (0.6-1.4) mg/dl Est Cr Clr Drug Dosing Est GFR ( Amer) ml/min Est GFR (Non-Af Amer) ml/min BUN/Creatinine Ratio (10-20) Glucose (70-99(Fasting)) mg/dl Calcium (8.6-10.3) mg/dl Total Bilirubin (0.2-1.0) mg/dl AST (13-39) U/L ALT (7-52) U/L Alkaline Phosphatase (34-104) U/L Troponin I High Sens 8.6 (0-20) pg/ml B-Natriuretic Peptide 35 (0-100) pg/ml Total Protein (6.0-8.3) gm/dl Albumin (3.4-5.0) gm/dl Globulin (2.5-4.0) gm/dl Albumin/Globulin Ratio (0.9-2) Lipase (11-82) U/L Blood Type Antibody Screen Administered Medications Discontinued Medications Acetaminophen (Acetaminophen 325 Mg Tab) 650 mg PO NOW STA Stop: 01/30/23 20:09 Last Admin: 01/30/23 20:24 Dose: 650 mg Documented By: Sodium Chloride (Nss 1000ml) 1,000 mls @ 999 mls/hr IV .Q1H1M STA Stop: 01/30/23 18:06 Last Infusion: 01/30/23 19:42 Dose: 0 mls/hr Documented By: Admin: 01/30/23 18:06 Dose: 999 mls/hr Documented By: TONY Sodium Chloride (Nss 1000ml) 1,000 mls @ 999 mls/hr IV .Q1H1M ONE Stop: 01/30/23 18:52 Last Infusion: 01/30/23 19:42 Dose: 0 mls/hr Documented By: Admin: 01/30/23 18:06 Dose: 999 mls/hr Documented By: TONY Imaging Data Radiologist's Impression: Abdomen/Pelvis CT 01/30/23 17:08 CT abd pelvis wo con CLINICAL HISTORY: pelvis pain, flank pain, h/o RLQ mass TECHNIQUE: Helical axial images of the abdomen and pelvis were obtained. Automated dose lowering techniques and/or adjustment according to patient size were utilized for this exam. This exam was performed without intravenous contrast. CT DOSE: 1830.64 mGy.cm COMPARISON: Comparison is made to CT abdomen pelvis 01/07/2023 FINDINGS: Lower chest: Worsening airspace opacities in the left lower lung. A few calcifications are seen. Liver: Unremarkable. No focal lesions are seen. Gallbladder and biliary tree: No calcified gallstones. Normal caliber wall. No intra- or extrahepatic biliary ductal dilation. Pancreas: Unremarkable, no focal lesions. Spleen: Splenomegaly is noted, the spleen measures 15.7 cm. Adrenals: Unremarkable. Kidneys and ureters: Unremarkable. Bladder: Unremarkable. Reproductive organs: Unremarkable. Bowel: Left lower quadrant colostomy is seen. Large parastomal hernia containing multiple loops of bowel is seen. Lymph nodes Retroperitoneal: Bulky retroperitoneal lymphadenopathy is essentially unchanged from prior exam. Pelvic: Bulky pelvic lymphadenopathy is unchanged. Mesenteric: Bulky mesenteric adenopathy is unchanged. Peritoneum: 10.4 x 6.1 cm heterogeneous collection is in the right inguinal region. Vessels: Unremarkable. Abdominal wall: Large left parastomal hernia and fat-containing umbilical hernia. Bones: Degenerative changes in the visualized spine. IMPRESSION: 1. Right pelvic hemorrhage is again seen, slightly decreased in size but with heterogeneous components. Superimposed recent hemorrhage cannot be entirely excluded. 2. No intraperitoneal hemorrhage. 3. Extensive bulky lymphadenopathy is again seen. Splenomegaly is noted. 4. Parastomal hernia. ACT 112: Negative or not required by law. Electronically signed by: Yousuf Marin M.D. 01/30/2023 6:37 PM Discharge Plan Visit Data Chief Complaint: Abnormal Labs/Diagnostic Testing Stated Complaint: ABN LABS, REF BY DR ORNELAS Provider: Venkat Dodd Discharge Problem: ANJUM (acute kidney injury), CLL (chronic lymphocytic leukemia), Weakness, Dehydration Patient Disposition: Admitted As Inpatient Forms Stand Alone Forms: [facility] Prescriptions Prescriptions: No Action multivitamin Tablet 1 tab PO DAILY (DME) blood-glucose meter Misc See Rx Instructions .Route Qty: 1 0RF Rx Instructions: As directed (DME) lancets [Accu-Chek Softclix Lancets] Misc See Rx Instructions .Route Qty: 100 2RF Rx Instructions: As directed bid (DME) blood sugar diagnostic Strip See Rx Instructions .ROUTE .MEDSUPPLY Qty: 300 3RF Rx Instructions: test TID atorvastatin 40 mg tablet 40 mg PO QAM Qty: 90 3RF glimepiride 2 mg tablet 4 mg PO QAM Qty: 180 3RF lisinopril 5 mg tablet 2.5 mg PO QAM Qty: 45 3RF levothyroxine 50 mcg tablet 50 mcg PO QAM Qty: 30 2RF Farxiga 5 mg tablet 5 mg PO QAM Qty: 90 3RF sildenafil 25 mg tablet 25 mg PO DAILY PRN (Reason: sexual activity) Qty: 20 0RF Rx Instructions: administer 30 minutes to 4 hours before activity acetaminophen [Tylenol] 325 mg capsule 650 mg PO Q6H PRN (Reason: Fever Or Pain) hydrocortisone 2.5 % cream 1 applic TOPICAL BID PRN (Reason: Eczema) Rx Instructions: APPLY TO FACE AND EARS DIRECTED magnesium 250 mg Tablet 400 mg PO PM Rx Instructions: per spouse it's 400 mg daily instead of 250 mg Calquence 100 mg Capsule See Rx Instructions .ROUTE .COMPLEX Rx Instructions: per , this med is on hold calcium carbonate-vitamin D3 [Calcium + D] 600 mg-5 mcg (200 unit) Tablet 1 tab PO PM oxycodone 5 mg tablet 5 mg PO DIRECTED Rx Instructions: q4h as needed for pain (4-6), may take 2 tabs for severe pain Referrals Referrals: Gabe Sorensen CRNP [Primary Care Provider] -
[2023-01-30 18:04] LABS: Alanine Aminotransferase 9 U/L (7-52); Albumin Globulin Ratio 1.7 (0.9-2); Albumin Level 3.4 gm/dl (3.4-5.0); Alkaline Phosphatase 84 U/L (34-104); Anion Gap 7 (3-11); Aspartate Aminotransferase 19 U/L (13-39); BUN Creatinine Ratio 20.1 (10-20); Bilirubin,Total 0.8 mg/dl (0.2-1.0); Blood Urea Nitrogen 61 mg/dl (6-23); Calcium 9.1 mg/dl (8.6-10.3); Carbon Dioxide 25 mmol/L (21-32); Chloride 104 mmol/L (98-107); Est GFR (African American) 23.7 ml/min; Est GFR (Non-African American) 20.4 ml/min; Glucose 73 mg/dl (70-99(Fasting)); Lipase 16 U/L (11-82); Potassium 4.8 mmol/L (3.5-5.1); Sodium 136 mmol/L (136-145); Total Protein 5.4 gm/dl (6.0-8.3)
--- NOTE | 2023-01-30 18:39 | CT Scan Report ---
CT abd pelvis wo con CLINICAL HISTORY: pelvis pain, flank pain, h/o RLQ mass TECHNIQUE: Helical axial images of the abdomen and pelvis were obtained. Automated dose lowering tech niques and/or adjustment according to patient size were utilized for this exam. This exam was perfor med without intravenous contrast. CT DOSE: 1830.64 mGy.cm COMPARISON: Comparison is made to CT abdomen pelvis 01/07/2023 FINDINGS: Lower chest: Worsening airspace opacities in the left lower lung. A few calcifications are seen. Liver: Unremarkable. No focal lesions are seen. Gallbladder and biliary tree: No calcified gallstones. Normal caliber wall. No intra- or extrahepatic biliary ductal dilation. Pancreas: Unremarkable, no focal lesions. Spleen: Splenomegaly is noted, the spleen measures 15.7 cm. Adrenals: Unremarkable. Kidneys and ureters: Unremarkable. Bladder: Unremarkable. Reproductive organs: Unremarkable. Bowel: Left lower quadrant colostomy is seen. Large parastomal hernia containing multiple loops of sukhjinder wel is seen. Lymph nodes Retroperitoneal: Bulky retroperitoneal lymphadenopathy is essentially unchanged from prior exam. Pelvic: Bulky pelvic lymphadenopathy is unchanged. Mesenteric: Bulky mesenteric adenopathy is unchanged. Peritoneum: 10.4 x 6.1 cm heterogeneous collection is in the right inguinal region. Vessels: Unremarkable. Abdominal wall: Large left parastomal hernia and fat-containing umbilical hernia. Bones: Degenerative changes in the visualized spine. IMPRESSION: 1. Right pelvic hemorrhage is again seen, slightly decreased in size but with heterogeneous componen ts. Superimposed recent hemorrhage cannot be entirely excluded. 2. No intraperitoneal hemorrhage. 3. Extensive bulky lymphadenopathy is again seen. Splenomegaly is noted. 4. Parastomal hernia. ACT 112: Negative or not required by law. Electronically signed by: Yousuf Marin M.D. 01/30/2023 6:37 PM
[2023-01-30 18:46] LABS: ALC (manual) 17.17 K/uL (1.2-3.4); ANC (manual) 0.53 K/uL (1.4-6.5); Lymphocytes # (manual) 14.16 K/uL (1.2-3.4); Lymphocytes % (manual) 80 %; Neutrophils # (manual) 0.53 K/uL (1.40-6.50); Neutrophils % (manual) 3 %; Polychromasia 1+; Prolymphocyte # (manual) 3.01 K/uL (0-0); Prolymphocyte % (manual) 17 %
--- NOTE | 2023-01-30 19:29 | History & Physical Report ---
Date of Service January 30, 2023 Assessment & Plan (1) ANJUM (acute kidney injury): Plan: Patient presents to the hospital with a creatinine of 3 up from 1.7 recently This could be multifactorial from poor p.o. intake. CT scan of the abdomen did not show any evidence of obstructive uropathy, however there is evidence of bulky retroperitoneal lymphadenopathy He was given a liter of fluid in the ED, will stop further IV fluids We will monitor, consult nephrology He has bilateral lower extremity edema I think mostly third spacing. We will check his albumin level, may benefit from albumin infusion to (2) CLL (chronic lymphocytic leukemia): Plan: On chemotherapy, which currently is on hold Follows up with hematology and oncologist at [facility] and also [facility] Will inform Dr. Tarango (3) Lymphadenopathy: Plan: Bulky retroperitoneal lymphadenopathy, worsening on PET scan (4) Diabetic peripheral neuropathy associated with type 2 diabetes mellitus: Plan: Blood sugars under fair control Start insulin sliding scale (5) LLL pneumonia: Plan: With elevated WBC and also chest x-ray which showed evidence of lobar infiltrate We will empirically treat for pneumonia. Start IV Zosyn Although PET scan done a few months ago showed some evidence of bronchitis and bronchiolitis Will obtain procalcitonin (6) Hematoma: Plan: Right pelvic hematoma, CT scan of the abdomen and pelvis showed no change in the size of the hematoma Continue to avoid blood thinners Continue to monitor. (7) T2DM (type 2 diabetes mellitus): Plan Admit to telemetry med Full code DVT prophylaxis SCDs. History of Present Illness Chief Complaint: Abnormal lab, lower extremity swelling, weakness, pain Primary Care Provider: JAS Flores This is a 67-year-old male with a history of colon cancer, status post ostomy, CLL currently on chemotherapy, recent retroperitoneal bleed was admitted to the hospital today on account of abnormal lab and weakness. Patient had been admitted and discharged from [facility] twice in the past 1 week. According to the from home some of the history was obtained patient has been declining over the past several weeks. His last oral chemotherapy was 7 weeks ago and according to the patient has not been eating and drinking very well. He complains of worsening pain around the site of his hematoma on the right hip also complains of bilateral lower extremity swelling. For these reasons, he came to the hospital. Of note, he follows up with a cancer specialist at [facility] and also follows up with Dr. Chavarrai for his CLL. His oral cancer medicine is currently on hold in view of the hematoma. Here in emergency department, his serum creatinine was found to be 3 up from 1.7 and also WBC was found to be 17,000. Chest x-ray was done showed evidence of possible right lobar infiltrate. Empiric IV antibiotic will be started and patient will be admitted to the hospital further management. Allergies Allergy/AdvReac Type Severity Reaction Status Date / Time allopurinol Allergy Unknown Rash Verified 11/13/22 14:19 ibrutinib [From Imbruvica] Allergy Unknown LOOKED Verified 11/13/22 14:19 LIKE A LEOPARD SPOTTED ALL OVER NSAIDS (Non-Steroidal AdvReac Unknown DUE TO Verified 11/13/22 14:19 Anti-Inflamma DECREASED KIDNEY FUNCTION Home Medications Medication Instructions Recorded Confirmed Type hydrocortisone 2.5 % topical cream 1 applic topical BID PRN Eczema 07/27/19 01/30/23 History magnesium 250 mg tablet 400 mg PO PM 07/27/19 01/30/23 History acetaminophen 325 mg capsule 650 mg PO Q6H PRN Fever Or Pain 12/10/19 01/30/23 History (Tylenol) sildenafil 25 mg tablet 25 mg PO DAILY PRN sexual activity 06/19/21 01/30/23 Rx #20 tabs blood-glucose meter #1 ea 11/20/21 11/13/22 Rx lancets (Accu-Chek Softclix #100 ea 11/20/21 11/13/22 Rx Lancets) blood sugar diagnostic #300 ea 11/23/21 11/13/22 Rx atorvastatin 40 mg tablet 40 mg PO QAM #90 tabs 02/05/22 01/30/23 Rx glimepiride 2 mg tablet 4 mg PO QAM #180 tabs 02/05/22 01/30/23 Rx lisinopril 5 mg tablet 2.5 mg PO QAM #45 tabs 02/05/22 01/30/23 Rx multivitamin 1 tab PO DAILY 02/21/22 01/30/23 History acalabrutinib 100 mg capsule See Rx Instructions .Route .COMPLEX 06/20/22 01/30/23 History (Calquence) levothyroxine 50 mcg tablet 50 mcg PO QAM #30 tabs 11/15/22 01/30/23 Rx dapagliflozin propanediol 5 mg 5 mg PO QAM #90 tabs 01/10/23 01/30/23 Rx tablet (Farxiga) calcium carbonate 600 mg-vitamin 1 tab PO PM 01/30/23 01/30/23 History D3 5 mcg (200 unit) tablet oxycodone 5 mg tablet 5 mg PO DIRECTED 01/30/23 01/30/23 History Past Med/Surg History Medical History Anemia Bronchiolitis Cataract, left eye Chronic kidney disease Cirrhosis (01/19/19) CLL (chronic lymphocytic leukemia) (~2013) Diabetes mellitus, type 2 History of anesthesia problem Hyperlipidemia Hypertension Hypomagnesemia Hypothyroidism Lower extremity edema Lymphadenopathy Paronychia Port-A-Cath in place Presence of colostomy Stroke Thrombocytopenia Tinnitus of both ears Tumor lysis syndrome Surgical History H/O right cataract extraction History of bowel resection History of tooth extraction History of vascular access device S/P biopsy (~2019) S/P lymph node biopsy (11/11/19) Status post excisional biopsy (06/21/22) Family History Father TIA (transient ischemic attack) Diabetes Hypertension Mother Endometrial cancer Lupus Heart valve replaced Diabetes Brother Bladder cancer Diabetes Hypertension Sister Diabetes Daughter No problems noted. Daughter No problems noted. 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 Physical Exam Physical Exam: The patient is awake, alert and oriented 3, well developed and well nourished, normocephalic and atraumatic, lying in bed and in no acute distress. HEENT--PERRL, EOMI, mucous membranes and oropharynx mildly dry Neck--supple. No JVD. No bruits. Thyroid normal, trachea midline, no adenopathy. Heart--normal S1 and S2. No murmurs, rubs or gallops. Lungs--clear bilaterally, no respiratory distress, no accessory muscle use. Abdomen--normal bowel sounds and soft. Mild epigastric and left sided abdominal pain Extremities--bilateral pitting leg edema. Dermatologic--normal skin turgor, normal color, no abnormal lymph nodes, no rash. Neurologic--cranial nerves II through XII grossly intact. Rheumatologic--normal range of motion. Psychiatric--normal affect. Results & Data Results & Data Vital Signs (Past 12 Hours) Vital Signs Temp Pulse Resp BP Pulse Ox O2 Del Method 01/30/23 18:08 89 01/30/23 17:01 98.4 F 88 18 95/62 L 97 Room Air Code Status & VTE Plan VTE Prophylaxis Plan VTE Prophylaxis will be ordered: No PG Care Time/CCT Total # of Minutes Spent Total Time Spent with Patient: Total time spent is greater than 50% in coordination of care (as documented) at patient's floor/unit and/or counseling patient: Coding Level of Care Code 39229 INT INP/OBS CARE 3/75MIN Diagnoses ANJUM (acute kidney injury) N17.9 CLL (chronic lymphocytic leukemia) C91.90 Lymphadenopathy R59.1 Diabetic peripheral neuropathy associated with type 2 diabetes mellitus E11.42 LLL pneumonia J18.9 Hematoma T14.8XXA T2DM (type 2 diabetes mellitus) E11.9 Time Spent (min) 75
[2023-01-30] MEDS ORDERED: ACETAMINOPHEN 325 MG TAB PO STA (20:08)
[2023-01-30] MEDS ORDERED: oxyCODONE HCL IR 5 MG TAB (IMMEDIATE RELEASE) PO PRN (22:34)
[2023-01-30] MEDS ORDERED: GLUCOSE 10 TAB/TUBE PO PRN (22:34)
[2023-01-30] MEDS ORDERED: DEXTROSE 50% 50 ML SYRINGE IV PRN (22:34)
[2023-01-30] MEDS ORDERED: GLUCAGON FOR INJ 1 MG VIAL SQ PRN (22:34)
[2023-01-30] MEDS ORDERED: GLUCOSE 40% GEL 15 GM TUBE PO PRN (22:34)
[2023-01-30] MEDS ORDERED: ACETAMINOPHEN 325 MG TAB PO PRN (22:34)
[2023-01-30] MEDS ORDERED: CARBOHYDRATES FOR HYPOGLYCEMIA PO PRN (22:34)
[2023-01-30] MEDS ORDERED: PIPERACILLIN/TAZOBACTAM 4.5 GM (over 30 mins) IV ONE (23:15)
[2023-01-31] MEDS: ALBUMIN 25% 25 GM/100 ML VIAL IV SCH ×2 (00:29→02:43)
[2023-01-31] MEDS: INSULIN ASPART PER UNIT CHARGE SC SCH ×5 (00:30→20:39)
[2023-01-31 02:49] LABS: Appearance Urine Clear (Clear); Bilirubin Urine Negative (Negative); Blood Urine Negative (Negative); Color Urine Dark Yellow; Glucose Urine UA Negative (Negative); Ketones Urine Trace (Negative); Leukocyte Esterase Urine Negative (Negative); Nitrite Urine Negative (Negative); Protein Urine Negative (Negative); Specific Gravity Urine 1.022 (1.000-1.030); Urobilinogen Urine Negative (Negative)
[2023-01-31] MEDS: PIPERACILLIN/TAZOBACTAM 4.5 GM in DEXTROSE 5% 100 ML IV SCH ×2 (06:05→13:33)
[2023-01-31] MEDS: LEVOTHYROXINE SODIUM 50 MCG TABLET PO SCH (06:05)
[2023-01-31 07:10] LABS: Hematocrit (blood only) 21.6 % (42.0-52.0); Hemoglobin 6.9 g/dl (14.0-18.0); Mean Corpuscular Hemoglobin 33.2 pg (25.0-34.0); Mean Corpuscular Hgb Conc 31.9 g/dL (32.0-36.0); Mean Corpuscular Volume 103.8 fL (80.0-100.0); Platelet Count 25 K/uL (130-400); RDW Coefficient of Variation 17.9 % (11.5-14.5); RDW Standard Deviation 65.2 fL (36.4-46.3); Red Blood Count 2.08 M/uL (4.70-6.10); White Blood Count 7.51 K/ul (4.8-10.8)
[2023-01-31 07:32] LABS: Albumin Globulin Ratio 1.7 (0.9-2); Albumin Level 3.3 gm/dl (3.4-5.0); BUN Creatinine Ratio 20.1 (10-20); Bilirubin,Total 0.8 mg/dl (0.2-1.0); Calcium 8.2 mg/dl (8.6-10.3); Creatinine Clr Calc Pharmacy 33.4 ml/min; Est GFR (African American) 26.3 ml/min; Est GFR (Non-African American) 22.7 ml/min; Total Protein 5.3 gm/dl (6.0-8.3)
[2023-01-31] MEDS ORDERED: SODIUM CHLORIDE 0.9% 250 ML IV PRN ×2 (07:40→08:09)
[2023-01-31 07:48] LABS: ALC (manual) 7.21 K/uL (1.2-3.4); Lymphocytes # (manual) 5.93 K/uL (1.2-3.4); Lymphocytes % (manual) 79 %; Neutrophils % (manual) 4 %; Ovalocytes 1+; Polychromasia 1+; Prolymphocyte # (manual) 1.28 K/uL (0-0); Prolymphocyte % (manual) 17 %; Smudge Cells Present; Tear Drop Cells 1+
[2023-01-31] MEDS: ATORVASTATIN 40 MG TAB PO SCH (08:23)
[2023-01-31] MEDS ORDERED: FUROSEMIDE 40 MG/4 ML VIAL IV SCH (09:00)
--- NOTE | 2023-01-31 09:53 | Nephrology Consultation ---
Date of Consultation January 31, 2023 Assessment & Plan (1) ANJUM (acute kidney injury): Non-oliguric. ANJUM consistent with prerenal physiology associated with poor oral intake, failure to thrive, acute anemia, and 3rd spacing fluids. Volume status acceptable. No concerning electrolyte abnormality or acid base disorder. No emergent indication for SHIPPING ASSISTANT. Creatinine slightly improved overnight with IVF. Avoid additional isotonic fluids at this time. Encourage nutrition. PRBC transfusion support has been orde red. Hold diuretics. Hold lisinopril and dapagliflozin. Medications are currently appropriately dosed for kidney function. Urine is acellular. CT demonstrates kidneys to be unobstructed. IV phosphorus replacement has been ordered. Repeat metabolic profile with phosphorus this afternoon. (2) Weakness: PRBC transfusion support has been ordered. Treatment for possible pneumonia has been provided. I discussed the plan of care with the hospitalist this AM. (3) T2DM (type 2 diabetes mellitus): Hold dapagliflozin. (4) Presence of colostomy: Document strict I/O's. (5) Chronic kidney disease: Baseline creatinine 1.7-2.0 mg/dL. CKD attributed to DKD and history of ANJUM. (6) Failure to thrive in adult: (7) CLL (chronic lymphocytic leukemia): Treatment on hold. PRBC transfusion support has been ordered. History of Present Illness Reason for Consultation: ANJUM Requesting Physician: Chris Diaz MD Attending Physician: Chris Diaz MD History of Present Illness Mr. Alphonso Gray is a 67-year-old male with relapsed CLL, DMII, hypertension, hypothyroidism, history of CVA, history of colon abscess requiring colectomy and ostomy, and chronic kidney disease with a baseline creatinine of 1.8 to 2.0 mg/dL.Management of CLL currently with acalabrutinib. However, treatment has been on hold due to a recent large thigh hematoma. Alphonso follows in the hematology clinic at [facility] with Dr. Heaton and locally with Dr. Smith. He has been admitted to [facility] several times recently due to recent bleeding complications and cytopenias. He was referred to the ER by his oncologist yesterday for abnormal laboratory studies notably ANJUM. Alphonso presented with weakness, pain in his leg, limited mobility, and increasing lower extremity edema. Appetite has been poor. Serum creatinine on admission was measured at 3.0 mg/dL. Serum electrolytes notable for hypophosphatemia. UA demonstrating ketones and glucose. Urine microscopy acellular. Abdominal CT scan demonstrates the kidneys to be unobstructed. Alphonso was provided 2 L of IV NSS and started on antibiotic therapy with Zosyn. CXR demonstrating possible RLL infiltrate. Carlo is non-oliguric. Creatinine has improved slightly to 2.78 mg/dL this AM. Lisinopril has been held. Dapagliflozin has been held. I discussed the patient's history and the plan of care with Dr. Diaz this AM. Carlo had no acute complaints at the time of my assessment. However he admits to a steady overall decline over the past several weeks. His last chemotherapy was several weeks ago. He has not been eating or drinking well at home. Lower extremity edema has been increasing over several weeks. Allergies Allergy/AdvReac Type Severity Reaction Status Date / Time allopurinol Allergy Unknown Rash Verified 11/13/22 14:19 ibrutinib [From Imbruvica] Allergy Unknown LOOKED Verified 11/13/22 14:19 LIKE A LEOPARD SPOTTED ALL OVER NSAIDS (Non-Steroidal AdvReac Unknown DUE TO Verified 11/13/22 14:19 Anti-Inflamma DECREASED KIDNEY FUNCTION Home Medications Medication Instructions Recorded Confirmed Type hydrocortisone 2.5 % topical cream 1 applic topical BID PRN Eczema 07/27/19 01/30/23 History magnesium 250 mg tablet 400 mg PO PM 07/27/19 01/30/23 History acetaminophen 325 mg capsule 650 mg PO Q6H PRN Fever Or Pain 12/10/19 01/30/23 History (Tylenol) sildenafil 25 mg tablet 25 mg PO DAILY PRN sexual activity 06/19/21 01/30/23 Rx #20 tabs blood-glucose meter #1 ea 11/20/21 11/13/22 Rx lancets (Accu-Chek Softclix #100 ea 11/20/21 11/13/22 Rx Lancets) blood sugar diagnostic #300 ea 11/23/21 11/13/22 Rx atorvastatin 40 mg tablet 40 mg PO QAM #90 tabs 02/05/22 01/30/23 Rx glimepiride 2 mg tablet 4 mg PO QAM #180 tabs 02/05/22 01/30/23 Rx lisinopril 5 mg tablet 2.5 mg PO QAM #45 tabs 02/05/22 01/30/23 Rx multivitamin 1 tab PO DAILY 02/21/22 01/30/23 History acalabrutinib 100 mg capsule See Rx Instructions .Route .COMPLEX 06/20/22 01/30/23 History (Calquence) levothyroxine 50 mcg tablet 50 mcg PO QAM #30 tabs 11/15/22 01/30/23 Rx dapagliflozin propanediol 5 mg 5 mg PO QAM #90 tabs 01/10/23 01/30/23 Rx tablet (Farxiga) calcium carbonate 600 mg-vitamin 1 tab PO PM 01/30/23 01/30/23 History D3 5 mcg (200 unit) tablet oxycodone 5 mg tablet 5 mg PO DIRECTED 01/30/23 01/30/23 History Patient History Medical History Anemia Bronchiolitis hx lingering cough illness 05/23 - current abx for/cough improving Cataract, left eye Chronic kidney disease STAGE III. Baseline Cr 1.6-1.8. Cirrhosis (01/19/19) Radiographic evidence on CT AP at [facility] during hospitalization - "Nodularity of the hepatic surface contour indicating early change of cirrhosis." CLL (chronic lymphocytic leukemia) (~2013) Diabetes mellitus, type 2 History of anesthesia problem per "feels he's probably a difficult intubation" Hyperlipidemia Hypertension Hypomagnesemia Hypothyroidism Lower extremity edema Lymphadenopathy Paronychia Port-A-Cath in place POWER/LEFT CHEST Presence of colostomy IN PROCESS OF COLOSTOMY REVERSAL/REASON FOR UPCOMING PROCEDURE. Stroke 2015--SPEECH IS SLIGHTLY SLOWER "word finding issue", slight facial droop when tired Thrombocytopenia Tinnitus of both ears Tumor lysis syndrome Hospitalized 07/27/19 - 07/30/19 - Improved with IVF and Rasburicase 6mg IV x 1. Surgical History H/O right cataract extraction History of bowel resection History of tooth extraction WISDOM TEETH History of vascular access device L CHEST/POWER S/P biopsy (~2019) Bone marrow biopsy x 2 S/P lymph node biopsy (11/11/19) Incisional Biopsy Left Axillary Node Dr. Chao 11/11/19 Status post excisional biopsy (06/21/22) Excisional biopsy left submandibular node (Left) - Harvey Chao MD, FACS Family History Father , 92yo TIA (transient ischemic attack) Diabetes Hypertension Mother , in 80s Endometrial cancer Lupus Heart valve replaced Diabetes Brother Bladder cancer Diabetes Hypertension Sister Diabetes Daughter No problems noted. Daughter No problems noted. 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 How many Children do You have: 2 Feels Safe at Home: Yes Diet: other caffeine: Yes (1 cup/day) during the past year weight has: decreased > 10 lbs Assistive Devices: Walker Review of Systems Review of Systems: All systems reviewed & are unremarkable except as noted in HPI & below Constitutional: + fatigue, + anorexia and + weight gain; no fever and no chills Gastrointestinal: + problem reported (denies change in ostomy output); no abdominal pain and no nausea Genitourinary: no dysuria, no difficulty urinating, no decreased urination or no hematuria Physical Exam Constitutional: well developed; no acute distress Eyes: no scleral abnormality and no corneal abnormality ENMT: Mouth: no oral mucosal abnormality and oral mucous membranes not dry Neck: normal visual inspection, trachea midline, + anterior neck swelling and + neck tender lymphadenopathy Respiratory: normal respiratory effort Auscultation: lungs clear to auscultation bilaterally Cardiovascular: Rate/Rhythm: regular rate Heart Sounds: normal S1 and normal S2 Extremities: + edema (4+ R>L extending to thigh); no calf tenderness Musculoskeletal: Extremities: no cyanosis and no clubbing large hematoma in right thigh extending to inguinal area Skin: normal turgor; no lesions Neurologic: Motor/Sensory: no tremor and no asterixis Psychiatric: Orientation: alert and oriented x 3 Results & Data Vital Signs (Past 12 Hours) Vital Signs Temp Pulse Pulse Resp BP Pulse Ox O2 Del Method 01/31/23 07:46 36.7 C 74 16 109/66 96 Room Air 01/31/23 07:18 74 01/30/23 22:34 36.4 C L 91 H 12 98/58 L 94 Room Air 01/30/23 22:35 36.4 C L 91 H 12 98/58 L 94 Room Air Laboratory Results Laboratory Results - last 24 hr 01/30/23 01/30/23 01/30/23 17:22 17:22 18:02 WBC 17.70 H RBC 2.51 L Hgb 8.3 L Hct 25.9 L MCV 103.2 H MCH 33.1 MCHC 32.0 RDW Std Deviation 66.4 H RDW Coeff of Leonela 17.9 H Plt Count 42 L MPV 12.1 Neutrophils % (Manual) 3 Lymphocytes % (Manual) 80 Prolymphocyte % 17 Neutrophils # (Manual) 0.53 L Total Absolute Neuts 0.53 L* Lymphocytes # (Manual) 14.16 H Prolymphocyte # 3.01 H Total Abs Lymphocytes 17.17 H Smudge Cells Polychromasia 1+ Tear Drop Cells Ovalocytes Sodium 136 Potassium 4.8 Chloride 104 Carbon Dioxide 25 Anion Gap 7 BUN 61 H Creatinine 3.03 H Est Cr Clr Drug Dosing Not Reportable Est GFR ( Amer) 23.7 Est GFR (Non-Af Amer) 20.4 BUN/Creatinine Ratio 20.1 H Glucose 73 POC Glucose Calcium 9.1 Total Bilirubin 0.8 AST 19 ALT 9 Alkaline Phosphatase 84 Troponin I High Sens B-Natriuretic Peptide Total Protein 5.4 L Albumin 3.4 Globulin 2.0 L Albumin/Globulin Ratio 1.7 Lipase 16 Urine Color Urine Appearance Urine pH Ur Specific [place] Urine Protein Urine Glucose (UA) Urine Ketones Urine Blood Urine Nitrite Urine Bilirubin Urine Urobilinogen Ur Leukocyte Esterase Blood Type O Negative Antibody Screen NEGATIVE 01/30/23 01/30/23 01/30/23 18:02 18:02 22:57 WBC RBC Hgb Hct MCV MCH MCHC RDW Std Deviation RDW Coeff of Leonela Plt Count MPV Neutrophils % (Manual) Lymphocytes % (Manual) Prolymphocyte % Neutrophils # (Manual) Total Absolute Neuts Lymphocytes # (Manual) Prolymphocyte # Total Abs Lymphocytes Smudge Cells Polychromasia Tear Drop Cells Ovalocytes Sodium Potassium Chloride Carbon Dioxide Anion Gap BUN Creatinine Est Cr Clr Drug Dosing Est GFR ( Amer) Est GFR (Non-Af Amer) BUN/Creatinine Ratio Glucose POC Glucose 130 H Calcium Total Bilirubin AST ALT Alkaline Phosphatase Troponin I High Sens 8.6 B-Natriuretic Peptide 35 Total Protein Albumin Globulin Albumin/Globulin Ratio Lipase Urine Color Urine Appearance Urine pH Ur Specific [place] Urine Protein Urine Glucose (UA) Urine Ketones Urine Blood Urine Nitrite Urine Bilirubin Urine Urobilinogen Ur Leukocyte Esterase Blood Type Antibody Screen 01/31/23 01/31/23 01/31/23 02:15 06:33 06:33 WBC 7.51 D RBC 2.08 L Hgb 6.9 L* Hct 21.6 L MCV 103.8 H MCH 33.2 MCHC 31.9 L RDW Std Deviation 65.2 H RDW Coeff of Leonela 17.9 H Plt Count 25 L* MPV 12.0 Neutrophils % (Manual) 4 Lymphocytes % (Manual) 79 Prolymphocyte % 17 Neutrophils # (Manual) 0.30 L Total Absolute Neuts 0.30 L* Lymphocytes # (Manual) 5.93 H Prolymphocyte # 1.28 H Total Abs Lymphocytes 7.21 H Smudge Cells Present Polychromasia 1+ Tear Drop Cells 1+ Ovalocytes 1+ Sodium 137 Potassium 4.0 Chloride 106 Carbon Dioxide 25 Anion Gap 6 BUN 56 H Creatinine 2.78 H Est Cr Clr Drug Dosing 33.4 Est GFR ( Amer) 26.3 Est GFR (Non-Af Amer) 22.7 BUN/Creatinine Ratio 20.1 H Glucose 85 POC Glucose Calcium 8.2 L Total Bilirubin 0.8 AST 14 ALT 8 Alkaline Phosphatase 69 Troponin I High Sens B-Natriuretic Peptide Total Protein 5.3 L Albumin 3.3 L Globulin 2.0 L Albumin/Globulin Ratio 1.7 Lipase Urine Color Dark Yellow Urine Appearance Clear Urine pH 5.0 Ur Specific [place] 1.022 Urine Protein Negative Urine Glucose (UA) Negative Urine Ketones Trace H Urine Blood Negative Urine Nitrite Negative Urine Bilirubin Negative Urine Urobilinogen Negative Ur Leukocyte Esterase Negative Blood Type Antibody Screen 01/31/23 07:53 WBC RBC Hgb Hct MCV MCH MCHC RDW Std Deviation RDW Coeff of Leonela Plt Count MPV Neutrophils % (Manual) Lymphocytes % (Manual) Prolymphocyte % Neutrophils # (Manual) Total Absolute Neuts Lymphocytes # (Manual) Prolymphocyte # Total Abs Lymphocytes Smudge Cells Polychromasia Tear Drop Cells Ovalocytes Sodium Potassium Chloride Carbon Dioxide Anion Gap BUN Creatinine Est Cr Clr Drug Dosing Est GFR ( Amer) Est GFR (Non-Af Amer) BUN/Creatinine Ratio Glucose POC Glucose 77 Calcium Total Bilirubin AST ALT Alkaline Phosphatase Troponin I High Sens B-Natriuretic Peptide Total Protein Albumin Globulin Albumin/Globulin Ratio Lipase Urine Color Urine Appearance Urine pH Ur Specific [place] Urine Protein Urine Glucose (UA) Urine Ketones Urine Blood Urine Nitrite Urine Bilirubin Urine Urobilinogen Ur Leukocyte Esterase Blood Type Antibody Screen Diagnostic Findings CT abd pelvis wo con FINDINGS: Lower chest: Worsening airspace opacities in the left lower lung. A few calcifications are seen. Liver: Unremarkable. No focal lesions are seen. Gallbladder and biliary tree: No calcified gallstones. Normal caliber wall. No intra- or extrahepatic biliary ductal dilation. Pancreas: Unremarkable, no focal lesions. Spleen: Splenomegaly is noted, the spleen measures 15.7 cm. Adrenals: Unremarkable. Kidneys and ureters: Unremarkable. Bladder: Unremarkable. Reproductive organs: Unremarkable. Bowel: Left lower quadrant colostomy is seen. Large parastomal hernia containing multiple loops of bowel is seen. Lymph nodes Retroperitoneal: Bulky retroperitoneal lymphadenopathy is essentially unchanged from prior exam. Pelvic: Bulky pelvic lymphadenopathy is unchanged. Mesenteric: Bulky mesenteric adenopathy is unchanged. Peritoneum: 10.4 x 6.1 cm heterogeneous collection is in the right inguinal region. Vessels: Unremarkable. Abdominal wall: Large left parastomal hernia and fat-containing umbilical hernia. Bones: Degenerative changes in the visualized spine. IMPRESSION: 1. Right pelvic hemorrhage is again seen, slightly decreased in size but with heterogeneous components. Superimposed recent hemorrhage cannot be entirely excluded. 2. No intraperitoneal hemorrhage. 3. Extensive bulky lymphadenopathy is again seen. Splenomegaly is noted. 4. Parastomal hernia. PG Care Time/CCT Total # of Minutes Spent Total Time Spent with Patient: Total time spent is greater than 50% in coordination of care (as documented) at patient's floor/unit and/or counseling patient: Coding Level of Care Code 93429 IN/OBS CONSULT LVL 4,60M Diagnoses ANJUM (acute kidney injury) N17.9 Weakness R53.1 T2DM (type 2 diabetes mellitus) E11.9 Presence of colostomy Z93.3 Chronic kidney disease N18.9 Failure to thrive in adult R62.7 CLL (chronic lymphocytic leukemia) C91.90
--- NOTE | 2023-01-31 12:47 | Hospitalist Progress Note ---
Date of Service January 31, 2023 Assessment & Plan (1) ANJUM (acute kidney injury): Plan: Patient presents to the hospital with a creatinine of 3 up from 1.7 recently This could be multifactorial from poor p.o. intake. CT scan of the abdomen did not show any evidence of obstructive uropathy, however there is evidence of bulky retroperitoneal lymphadenopathy He was given a liter of fluid in the ED, will stop further IV fluids. he received a dose of IV albumin Serum Cr has improved a little, 2.87 this morning Appreciate nephrology He has bilateral lower extremity edema I think mostly third spacing. (2) CLL (chronic lymphocytic leukemia): Plan: On chemotherapy, which currently is on hold Follows up with hematology and oncologist at [place] and also [facility] Will inform Dr. Tarango (3) Lymphadenopathy: Plan: Bulky retroperitoneal lymphadenopathy, worsening on PET scan (4) Diabetic peripheral neuropathy associated with type 2 diabetes mellitus: Plan: Blood sugars under fair control Start insulin sliding scale (5) LLL pneumonia: Plan: With elevated WBC and also chest x-ray which showed evidence of lobar infiltrate We will empirically treat for pneumonia. continue IV Zosyn WBC has improved (6) Hematoma: Plan: Right pelvic hematoma, CT scan of the abdomen and pelvis showed no change in the size of the hematoma Continue to avoid blood thinners Continue to monitor. (7) T2DM (type 2 diabetes mellitus): Plan Admit to telemetry med Full code DVT prophylaxis SCDs. Admission and Anticipated Discharge Date Admission Date: January 30, 2023 Subjective patient seen and examined, feels a little better this morning Review of Systems Review of Systems: All systems reviewed are negative, apart from the ones contained in the history. Physical Exam Physical Exam: The patient is awake, alert and oriented 3, well developed and well nourished, normocephalic and atraumatic, lying in bed and in no acute distress. HEENT--PERRL, EOMI, mucous membranes and oropharynx mildly dry Neck--supple. No JVD. No bruits. Thyroid normal, trachea midline, no adenopathy. Heart--normal S1 and S2. No murmurs, rubs or gallops. Lungs--clear bilaterally, no respiratory distress, no accessory muscle use. Abdomen--normal bowel sounds and soft. Mild epigastric and left sided abdominal pain Extremities--bilateral pitting leg edema. Dermatologic--normal skin turgor, normal color, no abnormal lymph nodes, no rash. Neurologic--cranial nerves II through XII grossly intact. Rheumatologic--normal range of motion. Psychiatric--normal affect. Results & Data Results & Data Vital Signs (Past 12 Hours) Vital Signs Temp Pulse Pulse Resp BP Pulse Ox O2 Del Method 01/31/23 11:33 98.4 F 74 16 117/66 97 Room Air 01/31/23 07:46 98.1 F 74 16 109/66 96 Room Air 01/31/23 07:18 74 PG Care Time/CCT Total # of Minutes Spent Total Time Spent with Patient: Total time spent is greater than 50% in coordination of care (as documented) at patient's floor/unit and/or counseling patient: Coding Level of Care Code 93948 SUB INP/OBS CARE 2/35MIN Diagnoses ANJUM (acute kidney injury) N17.9 CLL (chronic lymphocytic leukemia) C91.90 Lymphadenopathy R59.1 Diabetic peripheral neuropathy associated with type 2 diabetes mellitus E11.42 LLL pneumonia J18.9 Hematoma T14.8XXA T2DM (type 2 diabetes mellitus) E11.9 Time Spent (min) 35
[2023-01-31 17:50] LABS: Albumin Level 3.4 gm/dl (3.4-5.0); BUN Creatinine Ratio 20.9 (10-20); Calcium 8.5 mg/dl (8.6-10.3); Creatinine Clr Calc Pharmacy 33.5 ml/min; Est GFR (African American) 26.4 ml/min; Est GFR (Non-African American) 22.8 ml/min; Phosphorus 1.8 mg/dl (2.5-4.9); Potassium 4.5 mmol/L (3.5-5.1)
[2023-01-31] MEDS ORDERED: SODIUM PHOSPHATE 3 MMOL/1 ML INFUSION IV STA (18:19)
[2023-01-31] MEDS ORDERED: SODIUM PHOSPHATE 6 MMOL in 0.9 % SODIUM CHLORIDE 100 ML IV ONE (18:30)
[2023-01-31] MEDS ORDERED: Nursing to Pharmacy Communication SCH (23:45)
[2023-02-01] MEDS: PIPERACILLIN/TAZOBACTAM 4.5 GM in DEXTROSE 5% 100 ML IV SCH ×4 (00:15→21:47)
[2023-02-01] MEDS ORDERED: Nursing to Pharmacy Communication SCH (01:00)
[2023-02-01] MEDS: LEVOTHYROXINE SODIUM 50 MCG TABLET PO SCH (05:36)
[2023-02-01] MEDS: ATORVASTATIN 40 MG TAB PO SCH (08:28)
--- NOTE | 2023-02-01 08:56 | Nephrology Progress Note ---
Date of Service February 01, 2023 Assessment & Plan (1) ANJUM (acute kidney injury): Plan: * ANJUM due to anemia, dehydration * Volume status and electrolyte balance are acceptable. No acute indication for HD at this time * Cr has improved from 3.0 to 2.5 (baseline Cr 2.0). Patient remains nonoliguric * Continue to hold diuretics, Lisinopril and Dapagliflozin * Monitor PRP (2) Chronic kidney disease: Plan: * Baseline creatinine 1.7-2.0 mg/dL. CKD attributed to DKD and history of ANJUM (3) CLL (chronic lymphocytic leukemia): Plan: * Treatment currently on hold * Recommend transfusion to maintain Hgb > 8.0 * Consider low dose Allopurinol therapy for management of hyperuricemia (ie., Allopurinol 50 mg po q48hr, titrate up to 100 mg daily over 2-4 weeks) Admission and Anticipated Discharge Date Admission Date: January 30, 2023 Subjective Mr. Gray was evaluated in his hospital room this morning. He denied fever, flank pain, difficulty voiding, hematuria or uremic symptoms. He reports brisk UO. Review of Systems Constitutional: no fever Eyes: no problem reported Ear, Nose, Mouth, Throat: no problem reported Respiratory: no cough and no dyspnea Cardiovascular: no chest pain and no palpitations Gastrointestinal: no abdominal pain, no vomiting and no diarrhea/loose stools Genitourinary: no dysuria, no hematuria or no flank pain Physical Exam Constitutional: not in distress Eyes: PERRL, conjunctivae normal, anicteric sclerae ENMT: external ear and nose normal, oropharynx normal Neck: palpable cervical lymph nodes Respiratory: normal respiratory effort, lungs clear to auscultation Cardiovascular: Rate/Rhythm: regular rate and regular rhythm Gastrointestinal (Abdomen): Inspection/Auscultation: abdomen normal to inspection Skin: no rashes, warm and dry Results & Data Vital Signs (Past 12 Hours) Vital Signs Temp Pulse Pulse Resp BP BP BP 02/01/23 07:58 36.6 C 76 18 98/61 L 02/01/23 07:19 92 H 02/01/23 02:24 36.6 C 77 18 108/68 02/01/23 00:42 78 02/01/23 00:00 37 C 79 16 99/64 L 01/31/23 23:30 37 C 77 18 110/69 01/31/23 22:30 37 C 77 18 109/66 01/31/23 22:34 37 C 77 18 109/66 01/31/23 22:33 37 C 76 18 109/66 01/31/23 22:00 37 C 74 18 119/72 01/31/23 22:00 37 C 74 18 119/72 01/31/23 21:30 36.8 C 77 18 107/65 01/31/23 21:30 36.8 C 77 18 107/65 01/31/23 21:15 37.1 C 77 16 109/65 01/31/23 21:01 36.7 C 83 18 110/67 Pulse Ox O2 Del Method O2 Flow Rate 02/01/23 07:58 95 Room Air 02/01/23 07:19 02/01/23 02:24 95 Room Air 02/01/23 00:42 02/01/23 00:00 95 01/31/23 23:30 96 01/31/23 22:30 01/31/23 22:34 96 Room Air 01/31/23 22:33 96 0 01/31/23 22:00 95 01/31/23 22:00 95 01/31/23 21:30 96 01/31/23 21:30 96 01/31/23 21:15 97 01/31/23 21:01 95 Laboratory Results Laboratory Tests 01/30/23 01/31/23 02/01/23 17:22 06:33 08:22 WBC 10.48 Hgb 7.9 L Hct 24.4 L Plt Count 30 L Sodium Potassium Chloride Carbon Dioxide BUN Creatinine 3.03 H 2.78 H Glucose Uric Acid Calcium 02/01/23 08:22 WBC Hgb Hct Plt Count Sodium 138 Potassium 4.4 Chloride 106 Carbon Dioxide 26 BUN 50 H Creatinine 2.54 H Glucose 88 Uric Acid 10.9 H Calcium 8.5 L PG Care Time/CCT Total # of Minutes Spent Total Time Spent with Patient: Total time spent is greater than 50% in coordination of care (as documented) at patient's floor/unit and/or counseling patient: Coding Level of Care Code 32877 SUB INP/OBS CARE 3/50MIN Diagnoses ANJUM (acute kidney injury) N17.9 Chronic kidney disease N18.9 CLL (chronic lymphocytic leukemia) C91.90
[2023-02-01] MEDS: INSULIN ASPART PER UNIT CHARGE SC SCH ×4 (09:19→20:34)
[2023-02-01 09:41] LABS: Hematocrit (blood only) 24.4 % (42.0-52.0); Hemoglobin 7.9 g/dl (14.0-18.0); Mean Corpuscular Hemoglobin 32.1 pg (25.0-34.0); Mean Corpuscular Hgb Conc 32.4 g/dL (32.0-36.0); Mean Corpuscular Volume 99.2 fL (80.0-100.0); Mean Platelet Volume 11.7 fL (9.4-12.4); Platelet Count 30 K/uL (130-400); RDW Standard Deviation 74.2 fL (36.4-46.3); Red Blood Count 2.46 M/uL (4.70-6.10); White Blood Count 10.48 K/ul (4.8-10.8)
[2023-02-01 09:43] LABS: Calcium 8.5 mg/dl (8.6-10.3); Potassium 4.4 mmol/L (3.5-5.1)
[2023-02-01 09:49] LABS: BUN Creatinine Ratio 19.7 (10-20); Creatinine Clr Calc Pharmacy 36.4 ml/min; Est GFR (African American) 29.3 ml/min; Est GFR (Non-African American) 25.3 ml/min; Uric Acid 10.9 mg/dl (2.6-7.2)
[2023-02-01] MEDS ORDERED: dexAMETHasone 4 MG TAB PO SCH (10:45)
[2023-02-01] MEDS ORDERED: allopurinoL 300 MG TAB PO SCH (10:45)
[2023-02-01 11:08] LABS: ALC (manual) 9.96 K/uL (1.2-3.4); ANC (manual) 0.42 K/uL (1.4-6.5); Lymphocytes # (manual) 6.92 K/uL (1.2-3.4); Lymphocytes % (manual) 66 %; Monocytes % (manual) 1 %; Neutrophils # (manual) 0.42 K/uL (1.40-6.50); Neutrophils % (manual) 4 %; Ovalocytes 1+; Polychromasia 1+; Prolymphocyte # (manual) 3.04 K/uL (0-0); Prolymphocyte % (manual) 29 %; Tear Drop Cells 1+
[2023-02-01] MEDS ORDERED: allopurinoL 100 MG TAB PO SCH (11:30)
--- NOTE | 2023-02-01 12:29 | Hospitalist Progress Note ---
Date of Service February 01, 2023 Assessment & Plan (1) ANJUM (acute kidney injury): Plan: Patient presents to the hospital with a creatinine of 3 up from 1.7 recently This could be multifactorial from poor p.o. intake. CT scan of the abdomen did not show any evidence of obstructive uropathy, however there is evidence of bulky retroperitoneal lymphadenopathy He was given a liter of fluid in the ED, will stop further IV fluids. he received a dose of IV albumin Serum Cr has improved a little, 2.54 this morning Appreciate nephrology He has bilateral lower extremity edema I think mostly third spacing. (2) CLL (chronic lymphocytic leukemia): Plan: On chemotherapy, which currently is on hold Follows up with hematology and oncologist at [place] and also [facility] Dr cueva spoke to his oncologist at [facility] who said we can restart his Acalabrutinib once his platelets improve and once his hematoma is stable Platelets still low today, 30 CT abdomen done 01/30 showed stable and improving hematoma (3) Lymphadenopathy: Plan: Bulky retroperitoneal lymphadenopathy, worsening on PET scan Will start PO Dexamethasone 20mg daily for 4 days per Oncology (4) Diabetic peripheral neuropathy associated with type 2 diabetes mellitus: Plan: Blood sugars under fair control Start insulin sliding scale (5) LLL pneumonia: Plan: With elevated WBC and also chest x-ray which showed evidence of lobar infiltrate We will empirically treat for pneumonia. continue IV Zosyn WBC has improved (6) At high risk of tumor lysis syndrome: Plan: Given his bulky lymphadenopathy, he is at high risk for tumor lysis Uric acid level is 10.9 Rasburicase is not on formulary has been started on Allopurinol, 50mg Q48 hrs Will increase to 100mg daily over the next couple of weeks (7) Hematoma: Plan: Right pelvic hematoma, CT scan of the abdomen and pelvis showed no change in the size of the hematoma Continue to avoid blood thinners Continue to monitor. (8) T2DM (type 2 diabetes mellitus): Plan: Blood glucose control may deteriorate following dexamethasone will continue insulin sliding scale Plan Admit to telemetry med Full code DVT prophylaxis SCDs. Admission and Anticipated Discharge Date Admission Date: January 30, 2023 Subjective patient seen and examined, feels a little better this morning, appetite has improved a little Review of Systems Review of Systems: All systems reviewed are negative, apart from the ones contained in the history. Physical Exam Physical Exam: The patient is awake, alert and oriented 3, well developed and well nourished, normocephalic and atraumatic, lying in bed and in no acute distress. HEENT--PERRL, EOMI, mucous membranes and oropharynx mildly dry Neck--supple. No JVD. No bruits. Thyroid normal, trachea midline, no adenopathy. Heart--normal S1 and S2. No murmurs, rubs or gallops. Lungs--clear bilaterally, no respiratory distress, no accessory muscle use. Abdomen--normal bowel sounds and soft. Mild epigastric and left sided abdominal pain Extremities--bilateral pitting leg edema. Dermatologic--normal skin turgor, normal color, no abnormal lymph nodes, no rash. Neurologic--cranial nerves II through XII grossly intact. Rheumatologic--normal range of motion. Psychiatric--normal affect. Results & Data Results & Data Vital Signs (Past 12 Hours) Vital Signs Temp Pulse Pulse Resp BP BP Pulse Ox 02/01/23 12:08 97.7 F 78 18 94/58 L 96 02/01/23 07:58 97.9 F 76 18 98/61 L 95 02/01/23 07:19 92 H 02/01/23 02:24 97.9 F 77 18 108/68 95 02/01/23 00:42 78 O2 Del Method 02/01/23 12:08 Room Air 02/01/23 07:58 Room Air 02/01/23 07:19 02/01/23 02:24 Room Air 02/01/23 00:42 PG Care Time/CCT Total # of Minutes Spent Total Time Spent with Patient: Total time spent is greater than 50% in coordination of care (as documented) at patient's floor/unit and/or counseling patient: Coding Level of Care Code 17672 SUB INP/OBS CARE 2/35MIN Diagnoses ANJUM (acute kidney injury) N17.9 CLL (chronic lymphocytic leukemia) C91.90 Lymphadenopathy R59.1 Diabetic peripheral neuropathy associated with type 2 diabetes mellitus E11.42 LLL pneumonia J18.9 At high risk of tumor lysis syndrome Z91.89 Hematoma T14.8XXA T2DM (type 2 diabetes mellitus) E11.9 Time Spent (min) 35
--- NOTE | 2023-02-01 15:16 | Consultation ---
Date of Consultation February 01, 2023 Assessment & Plan (1) LLL pneumonia: Patient has a possible left lower lobe infiltrate on abdominal imaging. May be worthwhile to more fully image his chest, both to document the full extent of the infiltrate but also current status of the adenopathy in his chest. Patient has a longstanding neutropenia which may be a combination of marrow displacement and also autoimmune factors related to the CLL/SLL. This unfortunately may lessen his ability to fully respond to infections and thus empiric antibiotics are certainly potentially worthwhile (2) ANJUM (acute kidney injury): Patient does have chronic renal insufficiency exacerbated undoubtedly by poor p.o. intake most recently. Also need to be wary of his uric acid levels as well, but those are being appropriately addressed. Currently being rehydrated (3) CLL (chronic lymphocytic leukemia): I communicated with Dr. Heaton today who summarized the significant challenges of treating Mr. Gray's CLL/SLL as the classic "between rock and a hard place" challenge. His thrombocytopenia and neutropenia undoubtedly reflect direct or indirect consequences of CLL and its treatment but unfortunately in the face of the recent abdominal hematoma, aggressive salvage treatment will likely temporarily potentially significantly exacerbate those cytopenias and worsen his infection and further bleeding risk. Venetoclax is on indefinite hold, per Dr. Heaton would consider resuming the acalabrutinib once we are completely confident that the hematoma is stable. We did discuss that the patient has responded well to steroids in the past with temporary reduction of his karishma masses. Dr. Heaton felt it would be reasonable to give dexamethasone 20 mg daily for 4 days as a temporizing measure to try to control his adenopathy as we stabilize his kidney function and infection in hopes of at least resuming the acalabrutinib soon thereafter Plan 1. Continue with rehydration 2. Start allopurinol as per the guidance of renal medicine 3. Continue antibiotics, would consider fully documenting his current thoracic status with a repeat noncontrast chest CT 4. If he is felt to be sufficiently stable from the standpoint of his infection, would start dexamethasone 20 mg daily for 4 days. This should potentially stabilize or even reduce his karishma masses at least transiently as we can hopefully transition to a potential resumption of acalabrutinib in the not too distant future. As we do so, we will need to watch his blood sugars, will need to watch closely for subtle signs of infection as the dexamethasone may blunt his usual infection symptom response, also note there is some small chance of exacerbation of tumor lysis in conjunction with its start as well 5. If he shows signs of deterioration may need to consider transfer back to [facility] to the team that has been primarily responsible for the determination of his care plan History of Present Illness Reason for Consultation: Patient with CLL/SLL advancing on recent BTK inhibitor admitted with ANJUM Attending Physician: Chrsi Diaz MD History of Present Illness Please note that this is a consultation constructed purely from review of the electronic database. I am familiar with the patient from my previous office visits with him but currently I am working remotely and unable to speak directly with the patient or examine him. I reviewed both the records from the [facility] and the current admission records which seem to be an accurate source of relevant information but I am completely reliant on that for my conclusions and perspectives. If there are urgent concerns regarding the need for more direct [id number] review, you should consider transferring the patient to [facility] which has been the primary site determining his management. The evaluation is consultative in nature and all patient care and treatment decisions can either be accepted or rejected by the patient's primary hospital- based treating physician using their own independent medical judgment for the patient. Patient has a long history of CLL/SLL dating back to 2013 with a series of treatments including idelalisib/rituximab, venetoclax, ibrutinib, RCHOP, and more recently acalabrutinib. On that medication he has unfortunately had significant persistent/progressive widespread adenopathy as again manifest on imaging during this admission Primary management decisions are made by the [facility] team and in particular his hematology attending there Dr. Declan Heaton. Plan had been to transition to a venetoclax based treatment but unfortunately he developed an abdominal hematoma at the beginning of December. He was transferred acutely to [facility] and monitored, while there a biopsy of a retroperitoneal lymph node confirmed persistent aggressive follicular lymphoma but without clear Gonzales's-like transformation. Patient was recently readmitted to [facility] with a clinical deterioration but managed conservatively and discharged. Conclusion is that until his platelets improve and his hematoma has clearly stabilized, he is not a candidate to start the planned venetoclax. As he shows some intermediate improvement, plan may be to restart the acalabrutinib as a bridge Patient was brought to the emergency department with prolonged history of poor p.o. intake, worsening peripheral edema, and laboratory signs of ANJUM. Imaging suggests a possible left lower lung pneumonia. He was admitted for further Rx Allergies Allergy/AdvReac Type Severity Reaction Status Date / Time allopurinol Allergy Unknown Rash Verified 11/13/22 14:19 ibrutinib [From Imbruvica] Allergy Unknown LOOKED Verified 11/13/22 14:19 LIKE A LEOPARD SPOTTED ALL OVER NSAIDS (Non-Steroidal AdvReac Unknown DUE TO Verified 11/13/22 14:19 Anti-Inflamma DECREASED KIDNEY FUNCTION Home Medications Medication Instructions Recorded Confirmed Type hydrocortisone 2.5 % topical cream 1 applic topical BID PRN Eczema 07/27/19 01/30/23 History magnesium 250 mg tablet 400 mg PO PM 07/27/19 01/30/23 History acetaminophen 325 mg capsule 650 mg PO Q6H PRN Fever Or Pain 12/10/19 01/30/23 History (Tylenol) sildenafil 25 mg tablet 25 mg PO DAILY PRN sexual activity 06/19/21 01/30/23 Rx #20 tabs blood-glucose meter #1 ea 11/20/21 11/13/22 Rx lancets (Accu-Chek Softclix #100 ea 11/20/21 11/13/22 Rx Lancets) blood sugar diagnostic #300 ea 11/23/21 11/13/22 Rx atorvastatin 40 mg tablet 40 mg PO QAM #90 tabs 02/05/22 01/30/23 Rx glimepiride 2 mg tablet 4 mg PO QAM #180 tabs 02/05/22 01/30/23 Rx lisinopril 5 mg tablet 2.5 mg PO QAM #45 tabs 02/05/22 01/30/23 Rx multivitamin 1 tab PO DAILY 02/21/22 01/30/23 History acalabrutinib 100 mg capsule See Rx Instructions .Route .COMPLEX 06/20/22 01/30/23 History (Calquence) levothyroxine 50 mcg tablet 50 mcg PO QAM #30 tabs 11/15/22 01/30/23 Rx dapagliflozin propanediol 5 mg 5 mg PO QAM #90 tabs 01/10/23 01/30/23 Rx tablet (Farxiga) calcium carbonate 600 mg-vitamin 1 tab PO PM 01/30/23 01/30/23 History D3 5 mcg (200 unit) tablet oxycodone 5 mg tablet 5 mg PO DIRECTED 01/30/23 01/30/23 History Patient History Medical History Anemia Bronchiolitis hx lingering cough illness 05/23 - current abx for/cough improving Cataract, left eye Chronic kidney disease STAGE III. Baseline Cr 1.6-1.8. Cirrhosis (01/19/19) Radiographic evidence on CT AP at [facility] during hospitalization - "Nodularity of the hepatic surface contour indicating early change of cirrhosis." CLL (chronic lymphocytic leukemia) (~2013) Diabetes mellitus, type 2 History of anesthesia problem per "feels he's probably a difficult intubation" Hyperlipidemia Hypertension Hypomagnesemia Hypothyroidism Lower extremity edema Lymphadenopathy Paronychia Port-A-Cath in place POWER/LEFT CHEST Presence of colostomy IN PROCESS OF COLOSTOMY REVERSAL/REASON FOR UPCOMING PROCEDURE. Stroke 2015--SPEECH IS SLIGHTLY SLOWER "word finding issue", slight facial droop when tired Thrombocytopenia Tinnitus of both ears Tumor lysis syndrome Hospitalized 07/27/19 - 07/30/19 - Improved with IVF and Rasburicase 6mg IV x 1. Surgical History H/O right cataract extraction History of bowel resection History of tooth extraction WISDOM TEETH History of vascular access device L CHEST/POWER S/P biopsy (~2019) Bone marrow biopsy x 2 S/P lymph node biopsy (11/11/19) Incisional Biopsy Left Axillary Node Dr. Chao 11/11/19 Status post excisional biopsy (06/21/22) Excisional biopsy left submandibular node (Left) - Harvey Chao MD, FACS Family History Father , 92yo TIA (transient ischemic attack) Diabetes Hypertension Mother , in 80s Endometrial cancer Lupus Heart valve replaced Diabetes Brother Bladder cancer Diabetes Hypertension Sister Diabetes Daughter No problems noted. Daughter No problems noted. 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 How many Children do You have: 2 Feels Safe at Home: Yes Diet: other caffeine: Yes (1 cup/day) during the past year weight has: decreased > 10 lbs Assistive Devices: Walker Physical Exam Physical Exam: VSS Review of the documented physical exam from the hospitalist and nephrology service suggest that his lungs are clear and do not describe any immediately ala rming findings Results & Data Vital Signs (Past 12 Hours) Vital Signs Temp Pulse Pulse Resp BP Pulse Ox O2 Del Method 02/01/23 15:02 79 02/01/23 12:08 36.5 C 78 18 94/58 L 96 Room Air 02/01/23 07:58 36.6 C 76 18 98/61 L 95 Room Air 02/01/23 07:19 92 H Laboratory Results Laboratory Results - last 24 hr 01/30/23 01/31/23 01/31/23 18:02 16:05 17:16 WBC RBC Hgb Hct MCV MCH MCHC RDW Std Deviation RDW Coeff of Leonela Plt Count MPV Neutrophils % (Manual) Lymphocytes % (Manual) Prolymphocyte % Monocytes % (Manual) Neutrophils # (Manual) Total Absolute Neuts Lymphocytes # (Manual) Prolymphocyte # Total Abs Lymphocytes Monocytes # (Manual) Polychromasia Tear Drop Cells Ovalocytes Sodium 136 Potassium 4.5 Chloride 104 Carbon Dioxide 25 Anion Gap 7 BUN 58 H Creatinine 2.77 H Est Cr Clr Drug Dosing 33.5 Est GFR ( Amer) 26.4 Est GFR (Non-Af Amer) 22.8 BUN/Creatinine Ratio 20.9 H Glucose 182 H POC Glucose 223 H Uric Acid Calcium 8.5 L Phosphorus 1.8 L Albumin 3.4 Blood Type O Negative Antibody Screen NEGATIVE Crossmatch See Detail 01/31/23 02/01/23 02/01/23 20:13 07:57 08:22 WBC 10.48 RBC 2.46 L Hgb 7.9 L Hct 24.4 L MCV 99.2 MCH 32.1 MCHC 32.4 RDW Std Deviation 74.2 H RDW Coeff of Leonela 21.0 H Plt Count 30 L MPV 11.7 Neutrophils % (Manual) 4 Lymphocytes % (Manual) 66 Prolymphocyte % 29 Monocytes % (Manual) 1 Neutrophils # (Manual) 0.42 L Total Absolute Neuts 0.42 L* Lymphocytes # (Manual) 6.92 H Prolymphocyte # 3.04 H Total Abs Lymphocytes 9.96 H Monocytes # (Manual) 0.10 L Polychromasia 1+ Tear Drop Cells 1+ Ovalocytes 1+ Sodium Potassium Chloride Carbon Dioxide Anion Gap BUN Creatinine Est Cr Clr Drug Dosing Est GFR ( Amer) Est GFR (Non-Af Amer) BUN/Creatinine Ratio Glucose POC Glucose 136 H 81 Uric Acid Calcium Phosphorus Albumin Blood Type Antibody Screen Crossmatch 02/01/23 02/01/23 08:22 12:06 WBC RBC Hgb Hct MCV MCH MCHC RDW Std Deviation RDW Coeff of Leonela Plt Count MPV Neutrophils % (Manual) Lymphocytes % (Manual) Prolymphocyte % Monocytes % (Manual) Neutrophils # (Manual) Total Absolute Neuts Lymphocytes # (Manual) Prolymphocyte # Total Abs Lymphocytes Monocytes # (Manual) Polychromasia Tear Drop Cells Ovalocytes Sodium 138 Potassium 4.4 Chloride 106 Carbon Dioxide 26 Anion Gap 6 BUN 50 H Creatinine 2.54 H Est Cr Clr Drug Dosing 36.4 Est GFR ( Amer) 29.3 Est GFR (Non-Af Amer) 25.3 BUN/Creatinine Ratio 19.7 Glucose 88 POC Glucose 148 H Uric Acid 10.9 H Calcium 8.5 L Phosphorus Albumin Blood Type Antibody Screen Crossmatch Diagnostic Findings Abdomen/Pelvis CT 01/30/23 17:08 CT abd pelvis wo con CLINICAL HISTORY: pelvis pain, flank pain, h/o RLQ mass TECHNIQUE: Helical axial images of the abdomen and pelvis were obtained. Automated dose lowering techniques and/or adjustment according to patient size were utilized for this exam. This exam was performed without intravenous contrast. CT DOSE: 1830.64 mGy.cm COMPARISON: Comparison is made to CT abdomen pelvis 01/07/2023 FINDINGS: Lower chest: Worsening airspace opacities in the left lower lung. A few calcifications are seen. Liver: Unremarkable. No focal lesions are seen. Gallbladder and biliary tree: No calcified gallstones. Normal caliber wall. No intra- or extrahepatic biliary ductal dilation. Pancreas: Unremarkable, no focal lesions. Spleen: Splenomegaly is noted, the spleen measures 15.7 cm. Adrenals: Unremarkable. Kidneys and ureters: Unremarkable. Bladder: Unremarkable. Reproductive organs: Unremarkable. Bowel: Left lower quadrant colostomy is seen. Large parastomal hernia containing multiple loops of bowel is seen. Lymph nodes Retroperitoneal: Bulky retroperitoneal lymphadenopathy is essentially unchanged from prior exam. Pelvic: Bulky pelvic lymphadenopathy is unchanged. Mesenteric: Bulky mesenteric adenopathy is unchanged. Peritoneum: 10.4 x 6.1 cm heterogeneous collection is in the right inguinal region. Vessels: Unremarkable. Abdominal wall: Large left parastomal hernia and fat-containing umbilical hernia. Bones: Degenerative changes in the visualized spine. IMPRESSION: 1. Right pelvic hemorrhage is again seen, slightly decreased in size but with heterogeneous components. Superimposed recent hemorrhage cannot be entirely excluded. 2. No intraperitoneal hemorrhage. 3. Extensive bulky lymphadenopathy is again seen. Splenomegaly is noted. 4. Parastomal hernia. ACT 112: Negative or not required by law. Electronically signed by: Yousuf Marin M.D. 01/30/2023 6:37 PM PG Care Time/CCT Total # of Minutes Spent Total Time Spent with Patient: Total time spent is greater than 50% in coordination of care (as documented) at patient's floor/unit and/or counseling patient: Coding Level of Care Code 91625 IN/OBS CONSULT LVL 3,45M Diagnoses LLL pneumonia J18.9 ANJUM (acute kidney injury) N17.9 CLL (chronic lymphocytic leukemia) C91.90
[2023-02-01] MEDS ORDERED: INSULIN ASPART PER UNIT CHARGE SC STA (21:39)
[2023-02-01] MEDS ORDERED: LANTUS PER UNIT CHARGE SQ ONE (21:54)
[2023-02-02] MEDS: INSULIN ASPART PER UNIT CHARGE SC SCH ×2 (00:13→04:47)
[2023-02-02] MEDS: LEVOTHYROXINE SODIUM 50 MCG TABLET PO SCH (05:46)
[2023-02-02] MEDS: PIPERACILLIN/TAZOBACTAM 4.5 GM in DEXTROSE 5% 100 ML IV SCH (05:46)
[2023-02-02 06:19] LABS: Hematocrit (blood only) 24.9 % (42.0-52.0); Hemoglobin 8.2 g/dl (14.0-18.0); Mean Corpuscular Hemoglobin 32.4 pg (25.0-34.0); Mean Corpuscular Hgb Conc 32.9 g/dL (32.0-36.0); Mean Corpuscular Volume 98.4 fL (80.0-100.0); Mean Platelet Volume 11.1 fL (9.4-12.4); Nucleated RBC # (auto) 0.02 K/uL (0.00-0.12); Nucleated RBC % (auto) 0.1 %; Platelet Count 34 K/uL (130-400); RDW Coefficient of Variation 20.1 % (11.5-14.5); RDW Standard Deviation 70.4 fL (36.4-46.3); Red Blood Count 2.53 M/uL (4.70-6.10); White Blood Count 19.73 K/ul (4.8-10.8)
[2023-02-02 06:22] LABS: BUN Creatinine Ratio 24.5 (10-20); Calcium 8.6 mg/dl (8.6-10.3); Creatinine Clr Calc Pharmacy 39.7 ml/min; Est GFR (African American) 32.5 ml/min; Est GFR (Non-African American) 28.1 ml/min
[2023-02-02 08:23] LABS: ALC (manual) 17.17 K/uL (1.2-3.4); ANC (manual) 2.17 K/uL (1.4-6.5); Lymphocytes # (manual) 13.22 K/uL (1.2-3.4); Lymphocytes % (manual) 67 %; Monocytes # (manual) 0.39 K/uL (0.11-0.59); Monocytes % (manual) 2 %; Neutrophils # (manual) 2.17 K/uL (1.40-6.50); Neutrophils % (manual) 11 %; Prolymphocyte # (manual) 3.95 K/uL (0-0); Prolymphocyte % (manual) 20 %; RBC Morphology Unremarkable
--- NOTE | 2023-02-02 08:38 | Hospitalist Progress Note ---
Date of Service February 02, 2023 Assessment & Plan (1) CLL (chronic lymphocytic leukemia): Plan: Certainly his overall situation is tenuous and fragile but if he is agitated, continued hospitalization will be counterproductive. Creatinine is trending in the right direction, he feels he can take in good fluids, he has not been overwhelmed with signs of excessive infectious process. Does feel some better after just the initial dose of steroids. Plan I explained to Alphonso by telephone that it would be helpful to keep him in the hospital and continue hydration and monitoring but have also acknowledged that if he is indeed taking in fluids and food well and feels he is at his baseline, we can try outpatient management with ongoing oral antibiotics and completion of the planned 4 days of dexamethasone. I have emphasized to him that we still need to monitor closely and that I will make arrangements for him to see me in the office on or Friday. We will also make arrangements for some blood work to be checked on Friday. I indicated that I am special education paraprofessional throughout the holiday weekend and immediately available for any changes in status, emphasizing that he should call right away even if there are only subtle new issues In communication with hospitalist team he will be discharged to complete the dexamethasone as well with some oral antibiotics. Given the history of rash with allopurinol it may be more prudent to discontinue that for now and monitor his uric acid's as an outpatient Admission and Anticipated Discharge Date Admission Date: January 30, 2023 Subjective Patient is insisting on being discharged. I spoke with him by telephone and he indicates that he is eating and drinking well, feels like he is back to a reasonable baseline Physical Exam Physical Exam: Vital signs are stable Results & Data Results & Data Vital Signs (Past 12 Hours) Vital Signs Temp Pulse Pulse Resp BP BP Pulse Ox 02/02/23 08:20 36.4 C L 70 18 120/68 121/72 96 02/02/23 07:47 36.4 C L 70 18 121/72 96 02/02/23 07:10 66 02/02/23 04:00 36.8 C 90 18 120/68 94 02/01/23 23:58 82 02/01/23 22:00 36.8 C 78 18 114/72 93 O2 Del Method 02/02/23 08:20 02/02/23 07:47 Room Air 02/02/23 07:10 02/02/23 04:00 Room Air 02/01/23 23:58 02/01/23 22:00 Room Air PG Care Time/CCT Total # of Minutes Spent Total Time Spent with Patient: Total time spent is greater than 50% in coordination of care (as documented) at patient's floor/unit and/or counseling patient: Coding Level of Care Code 16166 SUB INP/OBS CARE 06/26MIN Diagnoses CLL (chronic lymphocytic leukemia) C91.90
--- NOTE | 2023-02-02 08:46 | Nephrology Progress Note ---
Date of Service February 02, 2023 Assessment & Plan (1) ANJUM (acute kidney injury): Plan: * ANJUM due to anemia, dehydration * Volume status and electrolyte balance are acceptable. No acute indication for HD at this time * Cr has improved from 3.0 to 2.5 (baseline Cr 2.0). Patient remains nonoliguric * Continue to hold diuretics, Lisinopril and Dapagliflozin * Monitor PRP (2) Chronic kidney disease: Plan: * Baseline creatinine 1.7-2.0 mg/dL. CKD attributed to DKD and history of ANJUM (3) CLL (chronic lymphocytic leukemia): Plan: * Treatment currently on hold * Recommend transfusion to maintain Hgb > 8.0 * Consider low dose Allopurinol therapy for management of hyperuricemia (ie., Allopurinol 50 mg po q48hr, titrate up to 100 mg daily over 2-4 weeks) Admission and Anticipated Discharge Date Admission Date: January 30, 2023 Subjective Mr. Gray was evaluated in his hospital room this morning. He denied fever, flank pain, difficulty voiding, hematuria or uremic symptoms. He reports brisk UO. Review of Systems Constitutional: no fever Eyes: no problem reported Ear, Nose, Mouth, Throat: no problem reported Respiratory: no cough and no dyspnea Cardiovascular: no chest pain and no palpitations Gastrointestinal: no abdominal pain, no vomiting and no diarrhea/loose stools Genitourinary: no dysuria, no hematuria or no flank pain Physical Exam Constitutional: not in distress Eyes: PERRL, conjunctivae normal, anicteric sclerae ENMT: external ear and nose normal, oropharynx normal Respiratory: normal respiratory effort, lungs clear to auscultation Cardiovascular: Rate/Rhythm: regular rate and regular rhythm Gastrointestinal (Abdomen): Inspection/Auscultation: abdomen normal to inspection Skin: no rashes, warm and dry Results & Data Vital Signs (Past 12 Hours) Vital Signs Temp Pulse Pulse Resp BP BP Pulse Ox 02/02/23 08:20 36.4 C L 70 18 120/68 121/72 96 02/02/23 07:47 36.4 C L 70 18 121/72 96 02/02/23 07:10 66 02/02/23 04:00 36.8 C 90 18 120/68 94 02/01/23 23:58 82 02/01/23 22:00 36.8 C 78 18 114/72 93 O2 Del Method 02/02/23 08:20 02/02/23 07:47 Room Air 02/02/23 07:10 02/02/23 04:00 Room Air 02/01/23 23:58 02/01/23 22:00 Room Air Laboratory Results Laboratory Tests 01/30/23 02/02/23 02/02/23 17:22 05:44 05:44 WBC 19.73 H Hgb 8.2 L Hct 24.9 L Plt Count 34 L Sodium 139 Potassium 5.0 Chloride 108 H Carbon Dioxide 24 BUN 57 H Creatinine 3.03 H 2.33 H Glucose 154 H Calcium 8.6 PG Care Time/CCT Total # of Minutes Spent Total Time Spent with Patient: Total time spent is greater than 50% in coordination of care (as documented) at patient's floor/unit and/or counseling patient: Coding Diagnoses ANJUM (acute kidney injury) N17.9 Chronic kidney disease N18.9 CLL (chronic lymphocytic leukemia) C91.90
== END 2023-02-02 09:52 | disposition home health service (06) | DRG 682 ==
LOC: ED 16:45 → 2W 19:17

== ENCOUNTER 2023-02-04 17:31 | Observation (INO) ==
--- NOTE | 2023-02-04 17:53 | ED Triage Note ---
Date of Service February 04, 2023 History of Present Illness This patient was briefly evaluated while in triage. An abbreviated physical exam was performed. This patient is a 67-year-old Male who presents to the ED for evaluation of abnormal labs today. Was told potassium was 6.0 on labs. Is being treated for CLL and gets routine labs. Denies any chest pain, SOB, dizzinesss, or syncope. Was recently treated for kidney injury, but reports this has been improving. States he has been feeling better since his recent admission. Physical Exam CONSTITUTIONAL: No acute distress. Well appearing. RESPIRATORY: Clear to auscultation bilaterally. Equal expansion bilaterally. CARDIOVASCULAR: Regular rate and rhythm. GASTROINTESTINAL: Soft, nontender. NEUROLOGIC: Alert and oriented X 4 with normal affect. Initial orders for labs and / or imaging were placed and patient was placed in the waiting area until a bed is available. Please see further documentation for the full ED course.
[2023-02-04 19:28] LABS: Alanine Aminotransferase 12 U/L (7-52); Albumin Globulin Ratio 1.5 (0.9-2); Albumin Level 3.7 gm/dl (3.4-5.0); Alkaline Phosphatase 83 U/L (34-104); Anion Gap 8 (3-11); Aspartate Aminotransferase 17 U/L (13-39); BUN Creatinine Ratio 32.5 (10-20); Bilirubin,Total 0.6 mg/dl (0.2-1.0); Blood Urea Nitrogen 53 mg/dl (6-23); Calcium 8.6 mg/dl (8.6-10.3); Carbon Dioxide 23 mmol/L (21-32); Chloride 103 mmol/L (98-107); Est GFR (African American) 50.1 ml/min; Est GFR (Non-African American) 43.3 ml/min; Globulin 2.4 gm/dl (2.5-4.0); Glucose 409 mg/dl (70-99(Fasting)); Potassium 5.8 mmol/L (3.5-5.1); Sodium 134 mmol/L (136-145); Total Protein 6.1 gm/dl (6.0-8.3)
[2023-02-04] MEDS ORDERED: NovoLIN-R INSULIN PER UNIT CHARGE IV STA ×2 (19:53→22:04)
--- NOTE | 2023-02-04 19:56 | Emergency Department Note ---
Impression & Plan Acute hyperkalemia, CLL (chronic lymphocytic leukemia), Acute hyperglycemia ED Provider Note NAME: PRISCILLA PEREZ AGE: 67 SEX: M : 1955 ARRIVES VIA: Walk-In INFORMANT: Patient ED PROVIDER(S): Venkat Dodd DO CHIEF COMPLAINT: Abnormal potassium HPI: Patient was following up with a cancer care clinic secondary to history of CLL with tumor lysis syndrome having routine blood work was found to have potassium that was elevated at 6.0 and consequently was referred in. He notes he has been feeling better than he usually has. He has no headache or change in vision. No chest pain or shortness of breath. No nausea, vomiting, or diarrhea. No dysuria, urgency, or frequency. No other exacerbating or remitting factors. PAST MEDICAL HISTORY:See Below PAST SURGICAL HISTORY:See Below FAMILY HISTORY:See Below SOCIAL HISTORY:See Below HOME MEDICATIONS:See Below ALLERGIES:See Below VITALS:See Below PHYSICAL EXAMINATION: GENERAL: Sitting up in bed, alert, chronically ill-appearing, disheveled EYE EXAM: normal conjunctiva. OROPHARYNX: no exudate, no erythema, lips, buccal mucosa, and tongue normal and mucous membranes are moist NECK: supple, no nuchal rigidity, no adenopathy, non-tender LUNGS: Clear to auscultation. Normal chest wall mechanics HEART: no murmurs, S1 normal and S2 normal ABDOMEN: abdomen soft, non-tender, normo-active bowel sounds, no masses, no rebound or guarding. BACK: Back is symmetrical on inspection and there is no deformity, no midline tenderness, no CVA tenderness. SKIN: no rashes and no bruising UPPER EXTREMITIES: upper extremities are grossly normal. LOWER EXTREMITIES: No pitting edema. NEURO EXAM: Normal sensorium, cranial nerves II-XII grossly intact, normal speech, no gross weakness of arms, no gross weakness of legs. MEDICAL DECISION MAKING: Patient is a 67-year-old male who presents ER for above-stated complaint. IV was established blood work was obtained. External records reviewed. Labs show mild leukocytosis of 16,000 which is fairly consistent with previous as he runs about 13-19. Hemoglobin is 7.6 again consistent with previous. Thrombocytopenia at 34. BMP with a hyperkalemia of 5.8 and a creatinine 1.6. Glucose was elevated at 409. He was given 8 units and trended down to 375. He was given additional units and went down to 300 as well as a bolus of normal saline. LFTs bilirubin was unremarkable. He did not want to stay in the hospital but he did not have a ride home and we did recommend that he stay for further evaluation management treatment of his hyperkalemia and he was agreea ble. Case was discussed with Dr. Torre and patient was admitted. Triage Nursing notes reviewed. Limited review of prior medical records performed Vital Signs: reviewed and remarkable for no significant abnormalities Differential diagnosis: Infection, dehydration, metabolic abnormality, hypo/hyperglycemia, electrolyte disturbance, anemia, hypoxia, cardiac sources, intracerebral event, toxicologic, neurologic, as well as other pathologies. ER treatment provided: See below Diagnostics interpreted by me include EKG and cardiac monitoring as listed below: -Cardiac Monitoring: An order was placed for continuous cardiac monitoring. The monitor shows a rate of 80 with sinus rhythm. -ECG: Sinus rhythm rate of 79 Left axis No PVCs Septal Q waves QTc 428 -Laboratory studies:Interpreted by me as stated above in MDM and shown below. Imaging studies: Xrays: As interpreted by me:none CTs show: none Consultation(s): As described in MDM Procedures:none Critical Care: None Past Med/Surg History Medical History Anemia Bronchiolitis hx lingering cough illness 05/23 - current abx for/cough improving Cataract, left eye Chronic kidney disease STAGE III. Baseline Cr 1.6-1.8. Cirrhosis (01/19/19) Radiographic evidence on CT AP at [facility] during hospitalization - "Nodularity of the hepatic surface contour indicating early change of cirrhosis." CLL (chronic lymphocytic leukemia) (~2013) Diabetes mellitus, type 2 History of anesthesia problem per "feels he's probably a difficult intubation" Hyperlipidemia Hypertension Hypomagnesemia Hypothyroidism Lower extremity edema Lymphadenopathy Paronychia Port-A-Cath in place POWER/LEFT CHEST Presence of colostomy IN PROCESS OF COLOSTOMY REVERSAL/REASON FOR UPCOMING PROCEDURE. Stroke 2015--SPEECH IS SLIGHTLY SLOWER "word finding issue", slight facial droop when tired Thrombocytopenia Tinnitus of both ears Tumor lysis syndrome Hospitalized 07/27/19 - 07/30/19 - Improved with IVF and Rasburicase 6mg IV x 1. Surgical History H/O right cataract extraction History of bowel resection History of tooth extraction WISDOM TEETH History of vascular access device L CHEST/POWER S/P biopsy (~2019) Bone marrow biopsy x 2 S/P lymph node biopsy (11/11/19) Incisional Biopsy Left Axillary Node Dr. Chao 11/11/19 Status post excisional biopsy (06/21/22) Excisional biopsy left submandibular node (Left) - Harvey Chao MD, FACS Family History Father , 92yo TIA (transient ischemic attack) Diabetes Hypertension Mother , in 80s Endometrial cancer Lupus Heart valve replaced Diabetes Brother Bladder cancer Diabetes Hypertension Sister Diabetes Daughter No problems noted. Daughter No problems noted. 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 How many Children do You have: 2 Feels Safe at Home: Yes Diet: other caffeine: Yes (1 cup/day) during the past year weight has: decreased > 10 lbs Assistive Devices: Walker Allergies Allergies Allergy/AdvReac Type Severity Reaction Status Date / Time allopurinol Allergy Unknown Rash Verified 02/04/23 20:31 ibrutinib [From Imbruvica] Allergy Unknown LOOKED Verified 02/04/23 20:31 LIKE A LEOPARD SPOTTED ALL OVER NSAIDS (Non-Steroidal AdvReac Unknown DUE TO Verified 02/04/23 20:31 Anti-Inflamma DECREASED KIDNEY FUNCTION Home Meds Home Medications Medication Instructions Recorded Confirmed hydrocortisone 2.5 % topical cream 1 applic topical BID PRN Eczema 07/27/19 02/04/23 magnesium 250 mg tablet 400 mg PO PM 07/27/19 02/04/23 acetaminophen 325 mg capsule 650 mg PO Q6H PRN Fever Or Pain 12/10/19 02/04/23 (Tylenol) multivitamin 1 tab PO DAILY 02/21/22 02/04/23 acalabrutinib 100 mg capsule See Rx Instructions .Route .COMPLEX 06/20/22 02/04/23 (Calquence) calcium carbonate 600 mg-vitamin 1 tab PO PM 01/30/23 02/04/23 D3 5 mcg (200 unit) tablet oxycodone 5 mg tablet 5 mg PO DIRECTED 01/30/23 02/04/23 Previous Rx's Medication Instructions Recorded sildenafil 25 mg tablet 25 mg PO DAILY PRN sexual activity 06/19/21 #20 tabs blood-glucose meter #1 ea 11/20/21 lancets (Accu-Chek Softclix #100 ea 11/20/21 Lancets) blood sugar diagnostic #300 ea 11/23/21 atorvastatin 40 mg tablet 40 mg PO QAM #90 tabs 02/05/22 glimepiride 2 mg tablet 4 mg PO QAM #180 tabs 02/05/22 lisinopril 5 mg tablet 2.5 mg PO QAM #45 tabs 02/05/22 levothyroxine 50 mcg tablet 50 mcg PO QAM #30 tabs 11/15/22 dapagliflozin propanediol 5 mg 5 mg PO QAM #90 tabs 01/10/23 tablet (Farxiga) amoxicillin-potassium clavulanate 1 tab PO BID 7 days #14 tabs 02/02/23 1,000 mg-62.5 mg tablet,ext.rel 12hr (Augmentin XR) dexamethasone 4 mg tablet 20 mg PO DAILY 3 days #15 tabs 02/02/23 Results & Data (ED) Vital Signs Vital Signs - 24 hr 02/04/23 17:51 02/04/23 19:58 02/04/23 19:59 Temperature 36.8 C Temperature Source Temporal Artery Scan Pulse Rate 82 Pulse Rate [Finger] 70 Pulse Rhythm [Finger] Pulse Strength [Finger] Respiratory Rate 18 16 Respiratory Effort / Characteristics Non-Labored Spontaneous Non-Labored Respiratory Depth Normal Normal Respiratory Pattern Regular Regular Blood Pressure 139/71 Blood Pressure [Right Arm] 136/83 Blood Pressure Mean 93 Blood Pressure Mean [Right Arm] 100 Blood Pressure Position Sitting Blood Pressure Position [Right Arm] Sitting Pulse Oximetry 99 98 97 Oxygen Delivery Method Room Air Room Air Room Air Sepsis Recent Fever Within 48 Hours No Sepsis New/Unexplained Change in Mental Status No Sepsis Action Taken by Nursing No Action Required 02/04/23 20:11 02/04/23 21:00 02/04/23 23:00 Temperature Temperature Source Pulse Rate 68 Pulse Rate [Finger] Pulse Rhythm [Finger] Regular Regular Pulse Strength [Finger] Normal Normal Respiratory Rate Respiratory Effort / Characteristics Non-Labored Non-Labored Respiratory Depth Normal Normal Respiratory Pattern Regular Regular Blood Pressure Blood Pressure [Right Arm] Blood Pressure Mean Blood Pressure Mean [Right Arm] Blood Pressure Position Blood Pressure Position [Right Arm] Pulse Oximetry Oxygen Delivery Method Room Air Room Air Sepsis Recent Fever Within 48 Hours Sepsis New/Unexplained Change in Mental Status Sepsis Action Taken by Nursing Laboratory Data 02/04/23 18:36 Lab Results 02/04/23 02/04/23 02/04/23 Range/Units 18:36 19:57 20:03 WBC 16.39 H (4.8-10.8) K/ul RBC 2.39 L (4.70-6.10) M/uL Hgb 7.6 L (14.0-18.0) g/dl Hct 23.8 L (42.0-52.0) % MCV 99.6 (80.0-100.0) fL MCH 31.8 (25.0-34.0) pg MCHC 31.9 L (32.0-36.0) g/dL RDW Std Deviation 69.9 H (36.4-46.3) fL RDW Coeff of Leonela 19.7 H (11.5-14.5) % Plt Count 34 L (130-400) K/uL MPV 11.7 (9.4-12.4) fL Absolute Nucleated RBC 0.03 (0.00-0.12) K/uL Nucleated RBC % (auto) 0.2 % Neutrophils % (Manual) 9 % Lymphocytes % (Manual) 80 % Prolymphocyte % 11 % Neutrophils # (Manual) 1.48 (1.40-6.50) K/uL Total Absolute Neuts 1.48 (1.4-6.5) K/uL Lymphocytes # (Manual) 13.11 H (1.2-3.4) K/uL Prolymphocyte # 1.80 H (0-0) K/uL Total Abs Lymphocytes 14.91 H (1.2-3.4) K/uL Polychromasia 1+ Ovalocytes 1+ Sodium 134 L (136-145) mmol/L Potassium 5.8 H (3.5-5.1) mmol/L Chloride 103 (98-107) mmol/L Carbon Dioxide 23 (21-32) mmol/L Anion Gap 8 (3-11) BUN 53 H (6-23) mg/dl Creatinine 1.63 H (0.6-1.4) mg/dl Est Cr Clr Drug Dosing Not Reportable Est GFR ( Amer) 50.1 ml/min Est GFR (Non-Af Amer) 43.3 ml/min BUN/Creatinine Ratio 32.5 H (10-20) Glucose 409 H* (70-99(Fasting)) mg/dl POC Glucose 409 H* (70-99) mg/dl Calcium 8.6 (8.6-10.3) mg/dl Total Bilirubin 0.6 (0.2-1.0) mg/dl AST 17 (13-39) U/L ALT 12 (7-52) U/L Alkaline Phosphatase 83 (34-104) U/L Total Protein 6.1 (6.0-8.3) gm/dl Albumin 3.7 (3.4-5.0) gm/dl Globulin 2.4 L (2.5-4.0) gm/dl Albumin/Globulin Ratio 1.5 (0.9-2) 02/04/23 02/04/23 Range/Units 21:29 23:44 WBC (4.8-10.8) K/ul RBC (4.70-6.10) M/uL Hgb (14.0-18.0) g/dl Hct (42.0-52.0) % MCV (80.0-100.0) fL MCH (25.0-34.0) pg MCHC (32.0-36.0) g/dL RDW Std Deviation (36.4-46.3) fL RDW Coeff of Leonela (11.5-14.5) % Plt Count (130-400) K/uL MPV (9.4-12.4) fL Absolute Nucleated RBC (0.00-0.12) K/uL Nucleated RBC % (auto) % Neutrophils % (Manual) % Lymphocytes % (Manual) % Prolymphocyte % % Neutrophils # (Manual) (1.40-6.50) K/uL Total Absolute Neuts (1.4-6.5) K/uL Lymphocytes # (Manual) (1.2-3.4) K/uL Prolymphocyte # (0-0) K/uL Total Abs Lymphocytes (1.2-3.4) K/uL Polychromasia Ovalocytes Sodium (136-145) mmol/L Potassium (3.5-5.1) mmol/L Chloride (98-107) mmol/L Carbon Dioxide (21-32) mmol/L Anion Gap (3-11) BUN (6-23) mg/dl Creatinine (0.6-1.4) mg/dl Est Cr Clr Drug Dosing Est GFR ( Amer) ml/min Est GFR (Non-Af Amer) ml/min BUN/Creatinine Ratio (10-20) Glucose (70-99(Fasting)) mg/dl POC Glucose 375 H* 308 H* (70-99) mg/dl Calcium (8.6-10.3) mg/dl Total Bilirubin (0.2-1.0) mg/dl AST (13-39) U/L ALT (7-52) U/L Alkaline Phosphatase (34-104) U/L Total Protein (6.0-8.3) gm/dl Albumin (3.4-5.0) gm/dl Globulin (2.5-4.0) gm/dl Albumin/Globulin Ratio (0.9-2) Administered Medications Discontinued Medications Insulin Human Regular (Novolin-R Insulin Per Unit Charge) 8 units IV NOW STA Stop: 02/04/23 19:54 Last Admin: 02/04/23 20:22 Dose: 8 units Documented By: GAURAV Co-signed By: ACC Insulin Human Regular (Novolin-R Insulin Per Unit Charge) 8 units IV NOW STA Stop: 02/04/23 22:05 Last Admin: 02/04/23 22:53 Dose: 8 units Documented By: GAURAV Co-signed By: ACC Discharge Plan Visit Data Chief Complaint: Abnormal Labs/Diagnostic Testing Stated Complaint: ABN LABS ED Provider: Venkat Dodd Discharge Problem: Acute hyperkalemia, CLL (chronic lymphocytic leukemia), Acute hyperglycemia Forms Stand Alone Forms: My [facility] [employer] Prescriptions Prescriptions: No Action multivitamin Tablet 1 tab PO DAILY (DME) blood-glucose meter Misc See Rx Instructions .Route Qty: 1 0RF Rx Instructions: As directed (DME) lancets [Accu-Chek Softclix Lancets] Misc See Rx Instructions .Route Qty: 100 2RF Rx Instructions: As directed bid (DME) blood sugar diagnostic Strip See Rx Instructions .ROUTE .MEDSUPPLY Qty: 300 3RF Rx Instructions: test TID atorvastatin 40 mg tablet 40 mg PO QAM Qty: 90 3RF glimepiride 2 mg tablet 4 mg PO QAM Qty: 180 3RF lisinopril 5 mg tablet 2.5 mg PO QAM Qty: 45 3RF levothyroxine 50 mcg tablet 50 mcg PO QAM Qty: 30 2RF Farxiga 5 mg tablet 5 mg PO QAM Qty: 90 3RF sildenafil 25 mg tablet 25 mg PO DAILY PRN (Reason: sexual activity) Qty: 20 0RF Rx Instructions: administer 30 minutes to 4 hours before activity acetaminophen [Tylenol] 325 mg capsule 650 mg PO Q6H PRN (Reason: Fever Or Pain) hydrocortisone 2.5 % cream 1 applic TOPICAL BID PRN (Reason: Eczema) Rx Instructions: APPLY TO FACE AND EARS DIRECTED magnesium 250 mg Tablet 400 mg PO PM Rx Instructions: per spouse it's 400 mg daily instead of 250 mg Calquence 100 mg Capsule See Rx Instructions .ROUTE .COMPLEX Rx Instructions: per , this med is on hold calcium carbonate-vitamin D3 600 mg-5 mcg (200 unit) Tablet 1 tab PO PM oxycodone 5 mg tablet 5 mg PO DIRECTED Rx Instructions: q4h as needed for pain (4-6), may take 2 tabs for severe pain dexamethasone 4 mg Tablet 20 mg PO DAILY 3 Days Qty: 15 0RF amoxicillin-pot clavulanate [Augmentin XR] 1,000-62.5 mg tablet extended release 12 hr 1 tab PO BID 7 Days Qty: 14 0RF Referrals Referrals: Gabe Sorensen CRNP [Primary Care Provider] -
[2023-02-04 20:38] LABS: Hematocrit (blood only) 23.8 % (42.0-52.0); Hemoglobin 7.6 g/dl (14.0-18.0); Mean Corpuscular Hemoglobin 31.8 pg (25.0-34.0); Mean Corpuscular Hgb Conc 31.9 g/dL (32.0-36.0); Mean Corpuscular Volume 99.6 fL (80.0-100.0); Mean Platelet Volume 11.7 fL (9.4-12.4); Nucleated RBC # (auto) 0.03 K/uL (0.00-0.12); Nucleated RBC % (auto) 0.2 %; Platelet Count 34 K/uL (130-400); RDW Coefficient of Variation 19.7 % (11.5-14.5); RDW Standard Deviation 69.9 fL (36.4-46.3); Red Blood Count 2.39 M/uL (4.70-6.10); White Blood Count 16.39 K/ul (4.8-10.8)
[2023-02-04 21:27] LABS: ALC (manual) 14.91 K/uL (1.2-3.4); ANC (manual) 1.48 K/uL (1.4-6.5); Lymphocytes # (manual) 13.11 K/uL (1.2-3.4); Lymphocytes % (manual) 80 %; Neutrophils # (manual) 1.48 K/uL (1.40-6.50); Neutrophils % (manual) 9 %; Ovalocytes 1+; Polychromasia 1+; Prolymphocyte % (manual) 11 %
[2023-02-04] MEDS ORDERED: SODIUM CHLORIDE 0.9% 1,000 ML IV ONE (23:05)
--- NOTE | 2023-02-04 23:19 | History & Physical Report ---
Date of Service February 04, 2023 Assessment & Plan (1) Acute hyperkalemia: Plan: Observation to medical. K=5.8. No acute EKG changes. Renal function is improved from prior. Other electrolytes are largely normal. -IVF given -Check Mg and PO4 -Check Uric Acid level (2) T2DM (type 2 diabetes mellitus): Plan: With hyperglycemia. Patient has been on Dexamethasone and has not been checking his blood sugars at home. He is on dapagliflozin and glimepiride at home. Last HgbA1C on 11/15/22=7.5 Patient given IV insulin 16u total with some improvement -Lantu 10u BID -ISS -Goal blood sugar 110-140 (3) Hyperlipidemia: Plan: Chronic. -Continue Atorvastatin (4) CLL (chronic lymphocytic leukemia): Plan: Management per [facility] and Oncology team at [facility]. Patient is frustrated that he is unable to receive active treatment at this time for his CLL due to competing medical comorbidities. History of Present Illness Chief Complaint: lab abnormalities Primary Care Provider: JAS Flores Marina is a 67yo male with history of CLL - he follows with Dr. Heaton from [facility] as well as [facility]. Patient has had ongoing thrombocytopenia and neutropenia likely secondary to CLL and treatment. He was previously on Venetoclax which is on indefinite hold. He was previously on acalabrutinib as well which is currently on hold given the recent spontaneous hematoma. Patient was seen in the ER on 01/07/23 with complaint of right groin pain and swelling. He was found to have a spontaneous intrapelvic hemorrhage. He was subsequently transferred to [facility] for possible IR drainage. He was monitored - no intervention. Patient was recently admitted to [facility] from 01/30/23 - 02/02/23 after presenting with PNA and ANJUM. He was discharged home in stable condition with Augmentin as well as Dexamethasone 4mg po daily x 4 day course to assist with mitigating patient's bulky adenopathy while his renal function improved. [facility] was [facility] by [facility] today and had routine blood work obtained. He was notified that his potassium was elevated and instructed to come to the ER. Patient with no complaints. He is very frustrated about having to be in the hospital. He reports that he has some financial things that need to be done at home and he cannot stay in the hospital long. Allergies Allergy/AdvReac Type Severity Reaction Status Date / Time allopurinol Allergy Unknown Rash Verified 02/04/23 20:31 ibrutinib [From Imbruvica] Allergy Unknown LOOKED Verified 02/04/23 20:31 LIKE A LEOPARD SPOTTED ALL OVER NSAIDS (Non-Steroidal AdvReac Unknown DUE TO Verified 02/04/23 20:31 Anti-Inflamma DECREASED KIDNEY FUNCTION Home Medications Medication Instructions Recorded Confirmed Type hydrocortisone 2.5 % topical cream 1 applic topical BID PRN Eczema 07/27/19 02/04/23 History magnesium 250 mg tablet 400 mg PO PM 07/27/19 02/04/23 History acetaminophen 325 mg capsule 650 mg PO Q6H PRN Fever Or Pain 12/10/19 02/04/23 History (Tylenol) sildenafil 25 mg tablet 25 mg PO DAILY PRN sexual activity 06/19/21 02/04/23 Rx #20 tabs blood-glucose meter #1 ea 11/20/21 11/13/22 Rx lancets (Accu-Chek Softclix #100 ea 11/20/21 11/13/22 Rx Lancets) blood sugar diagnostic #300 ea 11/23/21 11/13/22 Rx atorvastatin 40 mg tablet 40 mg PO QAM #90 tabs 02/05/22 02/04/23 Rx glimepiride 2 mg tablet 4 mg PO QAM #180 tabs 02/05/22 02/04/23 Rx lisinopril 5 mg tablet 2.5 mg PO QAM #45 tabs 02/05/22 02/04/23 Rx multivitamin 1 tab PO DAILY 02/21/22 02/04/23 History acalabrutinib 100 mg capsule See Rx Instructions .Route .COMPLEX 06/20/22 02/04/23 History (Calquence) levothyroxine 50 mcg tablet 50 mcg PO QAM #30 tabs 11/15/22 02/04/23 Rx dapagliflozin propanediol 5 mg 5 mg PO QAM #90 tabs 01/10/23 02/04/23 Rx tablet (Farxiga) calcium carbonate 600 mg-vitamin 1 tab PO PM 01/30/23 02/04/23 History D3 5 mcg (200 unit) tablet oxycodone 5 mg tablet 5 mg PO DIRECTED 01/30/23 02/04/23 History amoxicillin-potassium clavulanate 1 tab PO BID 7 days #14 tabs 02/02/23 02/04/23 Rx 1,000 mg-62.5 mg tablet,ext.rel 12hr (Augmentin XR) dexamethasone 4 mg tablet 20 mg PO DAILY 3 days #15 tabs 02/02/23 02/04/23 Rx Past Med/Surg History Medical History Anemia Bronchiolitis hx lingering cough illness 05/23 - current abx for/cough improving Cataract, left eye Chronic kidney disease STAGE III. Baseline Cr 1.6-1.8. Cirrhosis (01/19/19) Radiographic evidence on CT AP at [facility] during hospitalization - "Nodularity of the hepatic surface contour indicating early change of cirrhosis." CLL (chronic lymphocytic leukemia) (~2013) Diabetes mellitus, type 2 History of anesthesia problem per "feels he's probably a difficult intubation" Hyperlipidemia Hypertension Hypomagnesemia Hypothyroidism Lower extremity edema Lymphadenopathy Paronychia Port-A-Cath in place POWER/LEFT CHEST Presence of colostomy IN PROCESS OF COLOSTOMY REVERSAL/REASON FOR UPCOMING PROCEDURE. Stroke 2015--SPEECH IS SLIGHTLY SLOWER "word finding issue", slight facial droop when tired Thrombocytopenia Tinnitus of both ears Tumor lysis syndrome Hospitalized 07/27/19 - 07/30/19 - Improved with IVF and Rasburicase 6mg IV x 1. Surgical History H/O right cataract extraction History of bowel resection History of tooth extraction WISDOM TEETH History of vascular access device L CHEST/POWER S/P biopsy (~2019) Bone marrow biopsy x 2 S/P lymph node biopsy (11/11/19) Incisional Biopsy Left Axillary Node Dr. Chao 11/11/19 Status post excisional biopsy (06/21/22) Excisional biopsy left submandibular node (Left) - Harvey Chao MD, FACS Family History Father , 92yo TIA (transient ischemic attack) Diabetes Hypertension Mother , in 80s Endometrial cancer Lupus Heart valve replaced Diabetes Brother Bladder cancer Diabetes Hypertension Sister Diabetes Daughter No problems noted. Daughter No problems noted. 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 How many Children do You have: 2 Feels Safe at Home: Yes Diet: other caffeine: Yes (1 cup/day) during the past year weight has: decreased > 10 lbs Assistive Devices: Walker Review of Systems Review of Systems: All systems reviewed & are unremarkable except as noted in HPI & below Physical Exam Physical Exam: General: patient resting comfortably, NAD, non-toxic in appearance, AA&O x 4 Skin: warm, dry, intact, no rashes or lesions HEENT: NC/AT, PERRL, EOMI, anicteric sclera, conjunctiva without injection, external ear normal to inspection and nontender, nares patent, moist mucus membranes, dentition intact, no oropharyngeal lesions, neck supple, trachea midline, no LAD, no thyromegaly, no JVD Heart: +S1/S2, regular, no m/r/g Lungs: equal air entry bilaterally, no rales/rhonchi/wheezes Abd: +BS, soft, NT/ND,colostomy bag in place Ext: warm, 2+ pulses in UE/LE bilaterally, no clubbing/cyanosis or edema Neuro: nonfocal, patient AA&O x 4, speech intact, no facial droop, moving all extremities on command with equal strength 5/5 Results & Data Results & Data Vital Signs (Past 12 Hours) Vital Signs Temp Pulse Pulse Resp BP BP Pulse Ox 02/04/23 20:11 68 02/04/23 19:59 97 02/04/23 19:58 70 16 136/83 98 02/04/23 17:51 36.8 C 82 18 139/71 99 O2 Del Method 02/04/23 20:11 02/04/23 19:59 Room Air 02/04/23 19:58 Room Air 02/04/23 17:51 Room Air Laboratory Results Laboratory Results WBC 16.39 K/ul (4.8-10.8) H 02/04/23 20:03 RBC 2.39 M/uL (4.70-6.10) L 02/04/23 20:03 Hgb 7.6 g/dl (14.0-18.0) L 02/04/23 20:03 Hct 23.8 % (42.0-52.0) L 02/04/23 20:03 MCV 99.6 fL (80.0-100.0) 02/04/23 20:03 MCH 31.8 pg (25.0-34.0) 02/04/23 20:03 MCHC 31.9 g/dL (32.0-36.0) L 02/04/23 20:03 RDW Std Deviation 69.9 fL (36.4-46.3) H 02/04/23 20:03 RDW Coeff of Leonela 19.7 % (11.5-14.5) H 02/04/23 20:03 Plt Count 34 K/uL (130-400) L 02/04/23 20:03 MPV 11.7 fL (9.4-12.4) 02/04/23 20:03 Absolute Nucleated RBC 0.03 K/uL (0.00-0.12) 02/04/23 20:03 Nucleated RBC % (auto) 0.2 % 02/04/23 20:03 Neutrophils % (Manual) 9 % 02/04/23 20:03 Lymphocytes % (Manual) 80 % 02/04/23 20:03 Prolymphocyte % 11 % 02/04/23 20:03 Neutrophils # (Manual) 1.48 K/uL (1.40-6.50) 02/04/23 20:03 Total Absolute Neuts 1.48 K/uL (1.4-6.5) 02/04/23 20:03 Lymphocytes # (Manual) 13.11 K/uL (1.2-3.4) H 02/04/23 20:03 Prolymphocyte # 1.80 K/uL (0-0) H 02/04/23 20:03 Total Abs Lymphocytes 14.91 K/uL (1.2-3.4) H 02/04/23 20:03 Polychromasia 1+ 02/04/23 20:03 Ovalocytes 1+ 02/04/23 20:03 Sodium 134 mmol/L (136-145) L 02/04/23 18:36 Potassium 5.8 mmol/L (3.5-5.1) H 02/04/23 18:36 Chloride 103 mmol/L (98-107) 02/04/23 18:36 Carbon Dioxide 23 mmol/L (21-32) 02/04/23 18:36 Anion Gap 8 (3-11) 02/04/23 18:36 BUN 53 mg/dl (6-23) H 02/04/23 18:36 Creatinine 1.63 mg/dl (0.6-1.4) H 02/04/23 18:36 Est Cr Clr Drug Dosing Not Reportable 02/04/23 18:36 Est GFR ( Amer) 50.1 ml/min 02/04/23 18:36 Est GFR (Non-Af Amer) 43.3 ml/min 02/04/23 18:36 BUN/Creatinine Ratio 32.5 (10-20) H 02/04/23 18:36 Glucose 409 mg/dl (70-99(Fasting)) H* 02/04/23 18:36 POC Glucose 308 mg/dl (70-99) H* 02/04/23 23:44 Calcium 8.6 mg/dl (8.6-10.3) 02/04/23 18:36 Phosphorus 5.1 mg/dl (2.5-4.9) H 02/04/23 18:36 Magnesium 2.0 mg/dl (1.7-2.4) 02/04/23 18:36 Total Bilirubin 0.6 mg/dl (0.2-1.0) 02/04/23 18:36 AST 17 U/L (13-39) 02/04/23 18:36 ALT 12 U/L (7-52) 02/04/23 18:36 Alkaline Phosphatase 83 U/L (34-104) 02/04/23 18:36 Lactate Dehydrogenase 412 U/L (86-244) H 02/04/23 18:36 Total Protein 6.1 gm/dl (6.0-8.3) 02/04/23 18:36 Albumin 3.7 gm/dl (3.4-5.0) 02/04/23 18:36 Globulin 2.4 gm/dl (2.5-4.0) L 02/04/23 18:36 Albumin/Globulin Ratio 1.5 (0.9-2) 02/04/23 18:36 Code Status & VTE Plan VTE Prophylaxis Plan VTE Prophylaxis will be ordered: Yes PG Care Time/CCT Total # of Minutes Spent Total Time Spent with Patient: Total time spent is greater than 50% in coordination of care (as documented) at patient's floor/unit and/or counseling patient: Coding Level of Care Code 63429 INT INP/OBS CARE 2/55MIN Diagnoses Acute hyperkalemia E87.5 T2DM (type 2 diabetes mellitus) E11.9 Hyperlipidemia E78.5 CLL (chronic lymphocytic leukemia) C91.90
[2023-02-05] MEDS ORDERED: DEXTROSE 50% 50 ML SYRINGE IV PRN (00:46)
[2023-02-05] MEDS ORDERED: GLUCOSE 10 TAB/TUBE PO PRN (00:46)
[2023-02-05] MEDS ORDERED: oxyCODONE HCL IR 5 MG TAB (IMMEDIATE RELEASE) PO PRN (00:46)
[2023-02-05] MEDS ORDERED: CARBOHYDRATES FOR HYPOGLYCEMIA PO PRN (00:46)
[2023-02-05] MEDS ORDERED: GLUCAGON FOR INJ 1 MG VIAL SQ PRN (00:46)
[2023-02-05] MEDS ORDERED: GLUCOSE 40% GEL 15 GM TUBE PO PRN (00:46)
[2023-02-05] MEDS ORDERED: ONDANSETRON INJ 2 MG/ML 2 ML VIAL IV PRN (00:46)
[2023-02-05] MEDS ORDERED: ACETAMINOPHEN 325 MG TAB PO PRN (00:46)
[2023-02-05 01:24] LABS: Lactate Dehydrogenase 412 U/L (86-244); Phosphorus 5.1 mg/dl (2.5-4.9)
[2023-02-05 04:49] LABS: Hematocrit (blood only) 21.7 % (42.0-52.0); Hemoglobin 7.1 g/dl (14.0-18.0); Mean Corpuscular Hemoglobin 32.6 pg (25.0-34.0); Mean Corpuscular Hgb Conc 32.7 g/dL (32.0-36.0); Mean Corpuscular Volume 99.5 fL (80.0-100.0); Mean Platelet Volume 12.3 fL (9.4-12.4); Nucleated RBC # (auto) 0.03 K/uL (0.00-0.12); Nucleated RBC % (auto) 0.2 %; Platelet Count 36 K/uL (130-400); RDW Coefficient of Variation 19.9 % (11.5-14.5); RDW Standard Deviation 69.8 fL (36.4-46.3); Red Blood Count 2.18 M/uL (4.70-6.10); White Blood Count 18.98 K/ul (4.8-10.8)
[2023-02-05 05:14] LABS: Alanine Aminotransferase 10 U/L (7-52); Albumin Level 3.4 gm/dl (3.4-5.0); Alkaline Phosphatase 62 U/L (34-104); Anion Gap 8 (3-11); Aspartate Aminotransferase 11 U/L (13-39); BUN Creatinine Ratio 33.1 (10-20); Bilirubin Direct 0.1 mg/dl (0-0.2); Bilirubin,Total 0.6 mg/dl (0.2-1.0); Blood Urea Nitrogen 50 mg/dl (6-23); Calcium 8.1 mg/dl (8.6-10.3); Carbon Dioxide 24 mmol/L (21-32); Chloride 109 mmol/L (98-107); Est GFR (Non-African American) 47.4 ml/min; Glucose 113 mg/dl (70-99(Fasting)); Potassium 4.6 mmol/L (3.5-5.1); Sodium 141 mmol/L (136-145); Total Protein 5.4 gm/dl (6.0-8.3); Uric Acid 10.5 mg/dl (2.6-7.2)
[2023-02-05] MEDS ORDERED: LEVOTHYROXINE SODIUM 50 MCG TABLET PO SCH (06:30)
[2023-02-05] MEDS ORDERED: INSULIN ASPART PER UNIT CHARGE SC SCH (07:30)
[2023-02-05] MEDS ORDERED: PHARMACY GLYCEMIC MGMT CONSULT PRN (08:36)
[2023-02-05] MEDS ORDERED: SODIUM CHLORIDE 0.9% 250 ML IV PRN ×2 (08:59→10:15)
[2023-02-05] MEDS ORDERED: lisinopril 2.5 MG TAB PO SCH (09:00)
[2023-02-05] MEDS ORDERED: LANTUS PER UNIT CHARGE SQ SCH (09:00)
[2023-02-05] MEDS ORDERED: ATORVASTATIN 40 MG TAB PO SCH (09:00)
--- NOTE | 2023-02-05 09:47 | Discharge Summary ---
Date of Service February 05, 2023 Admission HPI Per Admitting Provider Alphonso Gray is a 67yo male with history of CLL - he follows with Dr. Heaton from [facility] as well as [facility]. Patient has had ongoing thrombocytopenia and neutropenia likely secondary to CLL and treatment. He was previously on Venetoclax which is on indefinite hold. He was previously on acalabrutinib as well which is currently on hold given the recent spontaneous hematoma. Patient was seen in the ER on 01/07/23 with complaint of right groin pain and swelling. He was found to have a spontaneous intrapelvic hemorrhage. He was subsequently transferred to [facility] for possible IR drainage. He was monitored - no intervention. Patient was recently admitted to [facility] from 01/30/23 - 02/02/23 after presenting with PNA and ANJUM. He was discharged home in stable condition with Augmentin as well as Dexamethasone 4mg po daily x 4 day course to assist with mitigating patient's bulky adenopathy while his renal function improved. [facility] was [facility] today and had routine blood work obtained. He was notified that his potassium was elevated and instructed to come to the ER. Patient with no complaints. He is very frustrated about having to be in the hospital. He reports that he has some financial things that need to be done at home and he cannot stay in the hospital long. Principal Diagnosis acute hyperkalemia Discharge Exam General: patient resting comfortably, NAD, non-toxic in appearance, AA&O x 4 Skin: warm, dry, intact, no rashes or lesions HEENT: NC/AT, PERRL, EOMI Heart: +S1/S2, regular, no m/r/g Lungs: equal air entry bilaterally, no rales/rhonchi/wheezes Abd: +BS, soft, NT/ND,colostomy bag in place Ext: warm, 2+ pulses in UE/LE bilaterally, no clubbing/cyanosis or edema Neuro: nonfocal, patient AA&O x 4 Discharge Data Allergies Allergy/AdvReac Type Severity Reaction Status Date / Time allopurinol Allergy Unknown Rash Verified 02/06/23 10:50 ibrutinib [From Imbruvica] Allergy Unknown LOOKED Verified 02/06/23 10:50 LIKE A LEOPARD SPOTTED ALL OVER NSAIDS (Non-Steroidal AdvReac Unknown DUE TO Verified 02/06/23 10:50 Anti-Inflamma DECREASED KIDNEY FUNCTION Consultations 02/04/23 22:39 ED Decision to Admit Stat Hospital Course (1) Acute hyperkalemia: Observation to medical. K=5.8. No acute EKG changes. Renal function is improved from prior. Other electrolytes are largely normal. -IVF given -Potassium improved. This is likely a combination of his hyperglycemia. Will stop corticosteroids, patient is not in acute renal failure. Discussed with Nephro, no consult is needed. Will continue to hold lisinopril and farxiga. Recommended transfusion, but patient has appointment with hematology the following day. Obtained type and cross, patient will be discharged. (2) T2DM (type 2 diabetes mellitus): With hyperglycemia. Patient has been on Dexamethasone and has not been checking his blood sugars at home. He is on dapagliflozin and glimepiride at home. Last HgbA1C on 11/15/22=7.5 Patient given IV insulin 16u total with some improvement In house plan -Lantu 10u BID -ISS -Goal blood sugar 110-140 Resumed home meds at discharge. (3) Hyperlipidemia: Chronic. -Continue Atorvastatin (4) CLL (chronic lymphocytic leukemia): Management per [facility] and Oncology team at [facility]. Patient is frustrated that he is unable to receive active treatment at this time for his CLL due to competing medical comorbidities. Total Time Total Time Spent Total Time Spent (In Minutes): 40 Discharge Plan Discharge Items Patient Disposition: Home - Self-Care Reason For Visit: HYPERKALEMIA, HYPERGLYCEMIA Discharge Diagnosis: Hyperkalemia, hyperglycemia Condition on Discharge: Good Activity: Resume your previous activity Non-emergency contact: Primary Care Provider Call non-emergency contact if: you have any medication questions Follow-up/Referrals: Gabe Sorensen CRNP [Primary Care Provider] - Diet: Carb Consistent or DM2 Addtl Attending Provider Instructions: Good morning Mr. Gray, You were seen with high potassium and high blood sugars. This was likely a combination of multiple factors however the dexamethasone likely played a role in combination with not being able to compensate for high blood sugars at home. Will hold further dexamethasone, will not recommend taking today's dose. We will also hold farxiga (dapaglifozin) and lisinopril. As your blood sugar improves, I anticipate you potassium will also continue to improve. Thankfully, you were not in kidney failure this time. I spoke with Dr. Smith, and he recommended a transfusion today, but given that you have an appointment gonsalo reed you preffered to get it tomorrow vs today. Please understand that if you blood count drops further today, it does put you at risk of severe complications due to lack of blood such as heart attack, stroke, and even . I understand how frustrating coming back to the hospital can be, and know that life does not stop when you are here. I am sorry that you had to come back so soon. I wish you the best. Kindest regards, Brennen Lonnie Pending Studies at Discharge: No Stand-Alone Forms: My [facility], Smoking Cessation Medications and DC Order Prescriptions: Continued multivitamin Tablet 1 tab PO DAILY (DME) blood-glucose meter Misc See Rx Instructions .Route Qty: 1 0RF Rx Instructions: As directed (DME) lancets [Accu-Chek Softclix Lancets] Misc See Rx Instructions .Route Qty: 100 2RF Rx Instructions: As directed bid (DME) blood sugar diagnostic Strip See Rx Instructions .ROUTE .MEDSUPPLY Qty: 300 3RF Rx Instructions: test TID atorvastatin 40 mg tablet 40 mg PO QAM Qty: 90 3RF glimepiride 2 mg tablet 4 mg PO QAM Qty: 180 3RF levothyroxine 50 mcg tablet 50 mcg PO QAM Qty: 30 2RF sildenafil 25 mg tablet 25 mg PO DAILY PRN (Reason: sexual activity) Qty: 20 0RF Rx Instructions: administer 30 minutes to 4 hours before activity acetaminophen [Tylenol] 325 mg capsule 650 mg PO Q6H PRN (Reason: Fever Or Pain) hydrocortisone 2.5 % cream 1 applic TOPICAL BID PRN (Reason: Eczema) Rx Instructions: APPLY TO FACE AND EARS DIRECTED magnesium 250 mg Tablet 400 mg PO PM Rx Instructions: per spouse it's 400 mg daily instead of 250 mg Calquence 100 mg Capsule See Rx Instructions .ROUTE .COMPLEX Rx Instructions: per , this med is on hold calcium carbonate-vitamin D3 600 mg-5 mcg (200 unit) Tablet 1 tab PO PM oxycodone 5 mg tablet 5 mg PO DIRECTED Rx Instructions: q4h as needed for pain (4-6), may take 2 tabs for severe pain amoxicillin-pot clavulanate [Augmentin XR] 1,000-62.5 mg tablet extended release 12 hr 1 tab PO BID 7 Days Qty: 14 0RF Discontinued lisinopril 5 mg tablet 2.5 mg PO QAM Qty: 45 3RF Farxiga 5 mg tablet 5 mg PO QAM Qty: 90 3RF dexamethasone 4 mg Tablet 20 mg PO DAILY 3 Days Qty: 15 0RF Discharge Orders: Discharge Order (Routine); Ordered 02/05/23 Ordered By: Brennen Fleming Admission Data Admit Date/Time: 02/04/23 23:17 Attending Provider: Brennen Fleming Admit Provider: Tasha Torre Primary Care Provider: Gabe Sorensen Other Providers: Tasha Torre Other Interventions: Discharge Summary Assessment (RN) Last Done: 02/05/23 10:42 Coding Level of Care Code 96188 INP/OBS DISCH >30 MIN Diagnoses Acute hyperkalemia E87.5 T2DM (type 2 diabetes mellitus) E11.9 Hyperlipidemia E78.5 CLL (chronic lymphocytic leukemia) C91.90
--- NOTE | 2023-02-05 16:09 | Electrocardiogram Report ---
Test Reason : Blood Pressure : / mmHG Vent. Rate : 079 BPM Atrial Rate : 079 BPM P-R Int : 212 ms QRS Dur : 084 ms QT Int : 374 ms P-R-T Axes : 029 001 071 degrees QTc Int : 428 ms Sinus rhythm with 1st degree A-V block Abnormal ECG When compared with ECG of 07-JAN-2023 12:17, Nonspecific T wave abnormality has replaced inverted T waves in Lateral leads Confirmed by Declan Santamaria ([id number]) on 02/05/2023 4:09:09 PM Referred By: REFERRED SELF Confirmed By:Cale Santamaria
== END 2023-02-05 10:45 | disposition home or self-care (01) ==
LOC: ED 17:31 → EDINP 17:31 → SUATTDRO 23:17 → EDINP 02-05 00:46

== ENCOUNTER 2023-03-07 16:41 | Inpatient (IN) ==
--- NOTE | 2023-03-07 17:25 | Emergency Department Note ---
Impression & Plan Neutropenic fever, Pneumonia, Rhinovirus infection, Enterovirus infection, COVID-19, Acute dyspnea, Non-ST elevation OK (NSTEMI) ED Provider Note HISTORY OF PRESENT ILLNESS: Patient is a 67-year-old male presenting with shortness of breath. Patient reports he tested positive for COVID 3 weeks ago and quarantined. He states that ever since he has been having progressively worsening shortness of breath. He reports in the last few days is gotten significantly worse. He was in [place] at another hospital 4 days ago for evaluation for his CLL and he states that they took samples and he tested positive for rhinovirus/enterovirus and was diagnosed with pneumonia. He was given IV Rocephin and an oral antibiotic. He states that his shortness of breath has progressed over the last 4 days. Denies any fevers at home. He denies any chest pain. He states he has not been sleepi ng well secondary to shortness of breath. He is also been having progressively worsening swelling in his lower extremities. He received a blood transfusion at the cancer center earlier today. He denies any hematochezia or melena. Patient is currently on oral chemotherapy for his CLL. ROS: as above PHYSICAL EXAM: Constitutional: Patient appears in no acute distress. HENT: Head: Normocephalic and atraumatic. Eyes: EOMI, PERRL Mouth/Throat: Mucous membranes moist. Neck: Trachea midline. Neck supple. Cardiovascular: Tachycardic with regular rhythm. No murmurs, rubs or gallops. Intact distal pulses. Pulmonary/Chest: No respiratory distress. Breath sounds clear and equal bilaterally. Expiratory wheezes bilaterally. Patient is conversationally dyspneic. Abdominal: Abdomen soft, no tenderness, rebound or guarding. Musculoskeletal: No tenderness or deformity noted. +2 pitting edema of bilateral lower extremities Skin: Warm and dry. No rash, erythema, pallor or cyanosis Psychiatric: Appropriate mood and affect for situation. Neurological: Alert and keenly responsive. CN II-XII grossly intact, moving all extremities equally and fully. MDM: - Vitals signs showed tachycardia and tachypnea. - History obtained via patient. Patient presents with shortness of breath. Patient reports he has been having progressively worsening shortness of breath over the last week, but most significantly in the last few days. He denies any chest pain. Denies any significant cough. He was diagnosed with pneumonia at an outside facility few days ago and given IV Rocephin and oral antibiotic. He reports in the last 4 days has become so short of breath he is unable to do basic activities at home. He has had fevers at home. - Chronic conditions affecting care: CKD; HTN; HLD; hypothyroidism; CLL - Differential diagnoses include, but are not limited to: pneumonia; UTI; viral syndrome; ACS; CHF exacerbation - Order placed for continuous cardiac monitoring. At this time, monitor showed rate of 103 bpm with normal sinus rhythm, per my interpretation. - External medical records reviewed. - EKG reviewed by myself showed normal sinus rhythm. Rate tachycardic at 111 bpm. QTc 418. No acute ischemic changes. - Laboratory workup interpreted by myself showed leukocytosis (WBC 35.09); chronic anemia (Hgb 7.4); neutropenia (abs neutrophil count 0.7); slight hyponatremia (Na 134); CKD (Cr 2.03); hypoglycemia (glucose 58); hypocalcemia (Ca 8.1); elevated troponin (28.5); elevated BNP (260); elevated procalcitonin (1.8) - CXR showed pneumonia, per my interpretation. - Blood cultures obtained. - Patient given only 2L NS in ER instead of the 2263 mL NS based on ideal body weight. This was secondary to patient becoming more short of breath with fluid administration and required 2L NC. - Biofire positive for rhinovirus/enterovirus infection and COVID-19. - Patient given IV dextrose for hypoglycemia - NSTEMI likely type II in setting of patient's pneumonia. - Patient was given IV vancomycin, cefepime and azithromycin for his evidence of pneumonia in the setting of his neutropenic fever - Discussion was had with social security specialist about patient's case and need for admission - Hospitalist consulted for admission - Patient admitted to [facility] for further evaluation and management. I provided 37 minutes of critical care time to this patient's care outside of billable procedures. ASSESSMENT AND PLAN: Diagnosis: Neutropenic fever; pneumonia; NSTEMI; hypoglycemia; rhinovirus infection; enterovirus infection; COVID-19 Plan: admit Past Med/Surg History Medical History Anemia Bronchiolitis Cataract, left eye Chronic kidney disease Cirrhosis (01/19/19) CLL (chronic lymphocytic leukemia) (~2013) Diabetes mellitus, type 2 History of anesthesia problem Hyperlipidemia Hypertension Hypomagnesemia Hypothyroidism Lower extremity edema Lymphadenopathy Paronychia Port-A-Cath in place Presence of colostomy Stroke Thrombocytopenia Tinnitus of both ears Tumor lysis syndrome Surgical History H/O right cataract extraction History of bowel resection History of tooth extraction History of vascular access device S/P biopsy (~2019) S/P lymph node biopsy (11/11/19) Status post excisional biopsy (06/21/22) Family History Father TIA (transient ischemic attack) Diabetes Hypertension Mother Endometrial cancer Lupus Heart valve replaced Diabetes Brother Bladder cancer Diabetes Hypertension Sister Diabetes Daughter No problems noted. Daughter No problems noted. 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 How many Children do You have: 2 Feels Safe at Home: Yes Diet: other caffeine: Yes (1 cup/day) during the past year weight has: decreased > 10 lbs Assistive Devices: Walker Allergies Allergies Allergy/AdvReac Type Severity Reaction Status Date / Time allopurinol Allergy Unknown Rash Verified 03/07/23 08:07 ibrutinib [From Imbruvica] Allergy Unknown LOOKED Verified 03/07/23 08:07 LIKE A LEOPARD SPOTTED ALL OVER NSAIDS (Non-Steroidal AdvReac Unknown DUE TO Verified 03/07/23 08:07 Anti-Inflamma DECREASED KIDNEY FUNCTION Home Meds Home Medications Medication Instructions Recorded Confirmed hydrocortisone 2.5 % topical cream 1 applic topical BID PRN Eczema 07/27/19 03/07/23 magnesium 250 mg tablet 400 mg PO PM 07/27/19 03/07/23 acetaminophen 325 mg capsule 650 mg PO Q6H PRN Fever Or Pain 12/10/19 03/07/23 (Tylenol) multivitamin 1 tab PO DAILY 02/21/22 03/07/23 acalabrutinib 100 mg capsule See Rx Instructions .Route .COMPLEX 06/20/22 03/07/23 (Calquence) calcium carbonate 600 mg-vitamin 1 tab PO PM 01/30/23 03/07/23 D3 5 mcg (200 unit) tablet oxycodone 5 mg tablet 5 mg PO DIRECTED 01/30/23 03/07/23 Previous Rx's Medication Instructions Recorded sildenafil 25 mg tablet 25 mg PO DAILY PRN sexual activity 06/19/21 #20 tabs blood-glucose meter #1 ea 11/20/21 lancets (Accu-Chek Softclix #100 ea 11/20/21 Lancets) blood sugar diagnostic #300 ea 11/23/21 atorvastatin 40 mg tablet 40 mg PO QAM #90 tabs 02/05/22 glimepiride 2 mg tablet 4 mg PO QAM #180 tabs 02/05/22 levothyroxine 50 mcg tablet 50 mcg PO QAM #30 tabs 11/15/22 allopurinol 200 mg tablet 200 mg PO BID #180 tabs 02/28/23 sodium zirconium cyclosilicate 10 10 g PO DAILY #11 ea 02/28/23 gram oral powder packet (Lokelma) Results & Data (ED) Vital Signs Vital Signs - 24 hr 03/07/23 16:59 03/07/23 17:34 03/07/23 18:00 Temperature Temperature Source Pulse Rate 114 H Pulse Rate [Apical] 110 H Pulse Rate from SpO2 Sensor Respiratory Rate 25 H 22 Respiratory Effort / Characteristics Labored Blood Pressure 135/64 Blood Pressure [Right Arm] 143/73 H Blood Pressure Mean 87 Blood Pressure Mean [Right Arm] 96 Pulse Oximetry 93 93 95 Oxygen Delivery Method Room Air Room Air Nasal Cannula Oxygen Flow Rate 2 Sepsis Recent Fever Within 48 Hours Yes Sepsis New/Unexplained Change in Mental Status No Sepsis Action Taken by Nursing No Action Required 03/07/23 18:11 03/07/23 18:10 03/07/23 18:15 Temperature Temperature Source Pulse Rate 108 H 108 H 108 H Pulse Rate [Apical] Pulse Rate from SpO2 Sensor 109 H 108 H Respiratory Rate 29 H 28 H Respiratory Effort / Characteristics Blood Pressure Blood Pressure [Right Arm] Blood Pressure Mean Blood Pressure Mean [Right Arm] Pulse Oximetry 94 94 Oxygen Delivery Method Oxygen Flow Rate Sepsis Recent Fever Within 48 Hours Sepsis New/Unexplained Change in Mental Status Sepsis Action Taken by Nursing 03/07/23 18:30 03/07/23 18:30 03/07/23 18:45 Temperature Temperature Source Pulse Rate 108 H 105 H Pulse Rate [Apical] Pulse Rate from SpO2 Sensor 108 H 106 H Respiratory Rate 27 H 24 Respiratory Effort / Characteristics Blood Pressure 134/73 Blood Pressure [Right Arm] Blood Pressure Mean 86 Blood Pressure Mean [Right Arm] Pulse Oximetry 96 96 Oxygen Delivery Method Oxygen Flow Rate Sepsis Recent Fever Within 48 Hours Sepsis New/Unexplained Change in Mental Status Sepsis Action Taken by Nursing 03/07/23 18:47 03/07/23 18:47 03/07/23 18:59 Temperature 37.6 C H Temperature Source Oral Pulse Rate 106 H Pulse Rate [Apical] Pulse Rate from SpO2 Sensor 106 H Respiratory Rate 20 Respiratory Effort / Characteristics Blood Pressure 137/76 Blood Pressure [Right Arm] Blood Pressure Mean 92 Blood Pressure Mean [Right Arm] Pulse Oximetry 96 Oxygen Delivery Method Oxygen Flow Rate Sepsis Recent Fever Within 48 Hours Sepsis New/Unexplained Change in Mental Status Sepsis Action Taken by Nursing Laboratory Data 03/07/23 17:23 03/07/23 17:23 Lab Results 03/07/23 03/07/23 03/07/23 Range/Units 17:23 17:23 17:23 WBC 35.09 H* (4.8-10.8) K/ul RBC 2.35 L (4.70-6.10) M/uL Hgb 7.4 L (14.0-18.0) g/dl Hct 22.9 L (42.0-52.0) % MCV 97.4 (80.0-100.0) fL MCH 31.5 (25.0-34.0) pg MCHC 32.3 (32.0-36.0) g/dL RDW Std Deviation 93.4 H (36.4-46.3) fL RDW Coeff of Leonela 27.1 H (11.5-14.5) % Plt Count 28 L* (130-400) K/uL MPV 11.5 (9.4-12.4) fL Neutrophils % (Manual) 2 % Lymphocytes % (Manual) 85 % Prolymphocyte % 13 % Neutrophils # (Manual) 0.70 L (1.40-6.50) K/uL Total Absolute Neuts 0.70 L* (1.4-6.5) K/uL Lymphocytes # (Manual) 29.83 H (1.2-3.4) K/uL Prolymphocyte # 4.56 H (0-0) K/uL Total Abs Lymphocytes 34.39 H (1.2-3.4) K/uL Polychromasia 1+ Anisocytosis Present VBG pH (7.36-7.41) VBG pCO2 (38-50) mmHg VBG pO2 mmHg VBG HCO3 mmol/L VBG O2 Saturation % VBG Base Excess mEq/L Sodium 134 L (136-145) mmol/L Potassium 4.7 (3.5-5.1) mmol/L Chloride 104 (98-107) mmol/L Carbon Dioxide 19 L (21-32) mmol/L Anion Gap 11 (3-11) BUN 44 H (6-23) mg/dl Creatinine 2.03 H (0.6-1.4) mg/dl Est Cr Clr Drug Dosing 45.5 ml/min Est GFR ( Amer) 38.4 ml/min Est GFR (Non-Af Amer) 33.2 ml/min BUN/Creatinine Ratio 21.7 H (10-20) Glucose 58 L (70-99(Fasting)) mg/dl POC Glucose (70-99) mg/dl Lactate (0.4-2.0) mmol/L Calcium 8.1 L (8.6-10.3) mg/dl Magnesium 1.9 (1.7-2.4) mg/dl Total Bilirubin 1.3 H (0.2-1.0) mg/dl Direct Bilirubin 0.3 H (0-0.2) mg/dl AST 20 (13-39) U/L ALT 8 (7-52) U/L Alkaline Phosphatase 85 (34-104) U/L Troponin I High Sens 28.5 H (0-20) pg/ml B-Natriuretic Peptide (0-100) pg/ml Total Protein 6.3 (6.0-8.3) gm/dl Albumin 3.7 (3.4-5.0) gm/dl Procalcitonin (0-0.5) ng/ml Adenovirus (PCR) (NotDetected) B. pertussis DNA (PCR) (NotDetected) B.parapertussis DNA PCR (NotDetected) C. pneumoniae DNA (PCR) (NotDetected) Coronavirus OC43 (PCR) (NotDetected) Coronavirus HKU1 (PCR) (NotDetected) Coronavirus 229E (PCR) (NotDetected) SARS-CoV-2 (PCR) (NotDetected) Coronavirus NL63 (PCR) (NotDetected) Human Metapneumovir PCR (NotDetected) Influenza Type A (PCR) (NotDetected) Influenza Type B (PCR) (NotDetected) M. pneumoniae (PCR) (NotDetected) Parainfluenza 1 (PCR) (NotDetected) Parainfluenza 2 (PCR) (NotDetected) Parainfluenza 3 (PCR) (NotDetected) Parainfluenza 4 (PCR) (NotDetected) RSV (PCR) (NotDetected) Entero/Rhino (PCR) (NotDetected) Blood Type O Negative Antibody Screen NEGATIVE 03/07/23 03/07/23 03/07/23 Range/Units 17:23 17:23 17:23 WBC (4.8-10.8) K/ul RBC (4.70-6.10) M/uL Hgb (14.0-18.0) g/dl Hct (42.0-52.0) % MCV (80.0-100.0) fL MCH (25.0-34.0) pg MCHC (32.0-36.0) g/dL RDW Std Deviation (36.4-46.3) fL RDW Coeff of Leonela (11.5-14.5) % Plt Count (130-400) K/uL MPV (9.4-12.4) fL Neutrophils % (Manual) % Lymphocytes % (Manual) % Prolymphocyte % % Neutrophils # (Manual) (1.40-6.50) K/uL Total Absolute Neuts (1.4-6.5) K/uL Lymphocytes # (Manual) (1.2-3.4) K/uL Prolymphocyte # (0-0) K/uL Total Abs Lymphocytes (1.2-3.4) K/uL Polychromasia Anisocytosis VBG pH 7.43 H (7.36-7.41) VBG pCO2 29 L (38-50) mmHg VBG pO2 35 mmHg VBG HCO3 19 mmol/L VBG O2 Saturation < 60.0 % VBG Base Excess -3.9 mEq/L Sodium (136-145) mmol/L Potassium (3.5-5.1) mmol/L Chloride (98-107) mmol/L Carbon Dioxide (21-32) mmol/L Anion Gap (3-11) BUN (6-23) mg/dl Creatinine (0.6-1.4) mg/dl Est Cr Clr Drug Dosing ml/min Est GFR ( Amer) ml/min Est GFR (Non-Af Amer) ml/min BUN/Creatinine Ratio (10-20) Glucose (70-99(Fasting)) mg/dl POC Glucose (70-99) mg/dl Lactate 0.6 (0.4-2.0) mmol/L Calcium (8.6-10.3) mg/dl Magnesium (1.7-2.4) mg/dl Total Bilirubin (0.2-1.0) mg/dl Direct Bilirubin (0-0.2) mg/dl AST (13-39) U/L ALT (7-52) U/L Alkaline Phosphatase (34-104) U/L Troponin I High Sens (0-20) pg/ml B-Natriuretic Peptide (0-100) pg/ml Total Protein (6.0-8.3) gm/dl Albumin (3.4-5.0) gm/dl Procalcitonin 1.80 H (0-0.5) ng/ml Adenovirus (PCR) (NotDetected) B. pertussis DNA (PCR) (NotDetected) B.parapertussis DNA PCR (NotDetected) C. pneumoniae DNA (PCR) (NotDetected) Coronavirus OC43 (PCR) (NotDetected) Coronavirus HKU1 (PCR) (NotDetected) Coronavirus 229E (PCR) (NotDetected) SARS-CoV-2 (PCR) (NotDetected) Coronavirus NL63 (PCR) (NotDetected) Human Metapneumovir PCR (NotDetected) Influenza Type A (PCR) (NotDetected) Influenza Type B (PCR) (NotDetected) M. pneumoniae (PCR) (NotDetected) Parainfluenza 1 (PCR) (NotDetected) Parainfluenza 2 (PCR) (NotDetected) Parainfluenza 3 (PCR) (NotDetected) Parainfluenza 4 (PCR) (NotDetected) RSV (PCR) (NotDetected) Entero/Rhino (PCR) (NotDetected) Blood Type Antibody Screen 03/07/23 03/07/23 03/07/23 Range/Units 17:23 17:50 18:52 WBC (4.8-10.8) K/ul RBC (4.70-6.10) M/uL Hgb (14.0-18.0) g/dl Hct (42.0-52.0) % MCV (80.0-100.0) fL MCH (25.0-34.0) pg MCHC (32.0-36.0) g/dL RDW Std Deviation (36.4-46.3) fL RDW Coeff of Leonela (11.5-14.5) % Plt Count (130-400) K/uL MPV (9.4-12.4) fL Neutrophils % (Manual) % Lymphocytes % (Manual) % Prolymphocyte % % Neutrophils # (Manual) (1.40-6.50) K/uL Total Absolute Neuts (1.4-6.5) K/uL Lymphocytes # (Manual) (1.2-3.4) K/uL Prolymphocyte # (0-0) K/uL Total Abs Lymphocytes (1.2-3.4) K/uL Polychromasia Anisocytosis VBG pH (7.36-7.41) VBG pCO2 (38-50) mmHg VBG pO2 mmHg VBG HCO3 mmol/L VBG O2 Saturation % VBG Base Excess mEq/L Sodium (136-145) mmol/L Potassium (3.5-5.1) mmol/L Chloride (98-107) mmol/L Carbon Dioxide (21-32) mmol/L Anion Gap (3-11) BUN (6-23) mg/dl Creatinine (0.6-1.4) mg/dl Est Cr Clr Drug Dosing ml/min Est GFR ( Amer) ml/min Est GFR (Non-Af Amer) ml/min BUN/Creatinine Ratio (10-20) Glucose (70-99(Fasting)) mg/dl POC Glucose 127 H (70-99) mg/dl Lactate (0.4-2.0) mmol/L Calcium (8.6-10.3) mg/dl Magnesium (1.7-2.4) mg/dl Total Bilirubin (0.2-1.0) mg/dl Direct Bilirubin (0-0.2) mg/dl AST (13-39) U/L ALT (7-52) U/L Alkaline Phosphatase (34-104) U/L Troponin I High Sens (0-20) pg/ml B-Natriuretic Peptide 260 H (0-100) pg/ml Total Protein (6.0-8.3) gm/dl Albumin (3.4-5.0) gm/dl Procalcitonin (0-0.5) ng/ml Adenovirus (PCR) Not Detected (NotDetected) B. pertussis DNA (PCR) Not Detected (NotDetected) B.parapertussis DNA PCR Not Detected (NotDetected) C. pneumoniae DNA (PCR) Not Detected (NotDetected) Coronavirus OC43 (PCR) Not Detected (NotDetected) Coronavirus HKU1 (PCR) Not Detected (NotDetected) Coronavirus 229E (PCR) Not Detected (NotDetected) SARS-CoV-2 (PCR) DETECTED A* (NotDetected) Coronavirus NL63 (PCR) Not Detected (NotDetected) Human Metapneumovir PCR Not Detected (NotDetected) Influenza Type A (PCR) Not Detected (NotDetected) Influenza Type B (PCR) Not Detected (NotDetected) M. pneumoniae (PCR) Not Detected (NotDetected) Parainfluenza 1 (PCR) Not Detected (NotDetected) Parainfluenza 2 (PCR) Not Detected (NotDetected) Parainfluenza 3 (PCR) Not Detected (NotDetected) Parainfluenza 4 (PCR) Not Detected (NotDetected) RSV (PCR) Not Detected (NotDetected) Entero/Rhino (PCR) DETECTED A* (NotDetected) Blood Type Antibody Screen Administered Medications Sodium Chloride (Nss) 2,000 mls @ 999 mls/hr IV .Q2H1M ONE Stop: 03/07/23 20:14 Last Admin: 03/07/23 18:22 Dose: 999 mls/hr Documented By: MARIANO Vancomycin HCl 2,250 mg/ (Sodium Chloride) 545 mls @ 200 mls/hr IV NOW ONE Stop: 03/07/23 20:57 Last Admin: 03/07/23 18:47 Dose: 200 mls/hr Documented By: MARIANO Azithromycin 500 mg/ Dextrose 255 mls @ 127.5 mls/hr IV NOW STA Stop: 03/07/23 20:13 Last Admin: 03/07/23 18:48 Dose: 127.5 mls/hr Documented By: MARIANO Discontinued Medications Dextrose (Dextrose 50% 50 Ml Syringe) 50 ml IV NOW STA Stop: 03/07/23 18:19 Last Admin: 03/07/23 18:23 Dose: 50 ml Documented By: MARIANO Cefepime HCl (Maxipime) 2,000 mg in 20 mls @ 5 mls/min IV NOW STA; Protocol Stop: 03/07/23 18:17 Last Admin: 03/07/23 18:55 Dose: 5 mls/min Documented By: MARIANO Imaging Data Radiologist's Impression: Chest X-Ray 03/07/23 17:08 XR chest 1V portable HISTORY: 67 years-old Male Sepsis acute sepsis COMPARISON: 01/07/2023 chest radiograph, PET/CT 12/25/2022 TECHNIQUE: AP view of the chest FINDINGS: Cardiac silhouette is enlarged. Lateral hilar enlargement is new/progressed from 01/07/2023. Patchy bibasilar and left midlung predominant airspace opacities. No pneumothorax or large pleural effusion. Left subclavian [id number]-u-[id number] catheter. IMPRESSION: 1. Patchy bibasilar and left midlung airspace opacities may represent pneumonia. 2. Bilateral hilar enlargement likely represents underlying lymphadenopathy and may be related to disease progression in this patient with known leukemia. Findings are progressed compared to 01/07/2023. Follow-up with oncology as needed. ACT 112: Negative or not required by law. The above report was generated using voice recognition software. It may contain grammatical, syntax or spelling errors. Electronically signed by: Benedict Anderson M.D. 03/07/2023 5:55 PM Discharge Plan Visit Data Chief Complaint: Flu Like Symptoms Stated Complaint: FEVER, SOB, PNUEMONIA ED Provider: Franci Parker Discharge Problem: Neutropenic fever, Pneumonia, Rhinovirus infection, Enterovirus infection, COVID-19, Acute dyspnea, Non-ST elevation OK (NSTEMI) Forms Stand Alone Forms: [facility] Prescriptions Prescriptions: No Action multivitamin Tablet 1 tab PO DAILY (DME) blood-glucose meter Misc See Rx Instructions .Route Qty: 1 0RF Rx Instructions: As directed (DME) lancets [Accu-Chek Softclix Lancets] Misc See Rx Instructions .Route Qty: 100 2RF Rx Instructions: As directed bid (DME) blood sugar diagnostic Strip See Rx Instructions .ROUTE .MEDSUPPLY Qty: 300 3RF Rx Instructions: test TID atorvastatin 40 mg tablet 40 mg PO QAM Qty: 90 3RF glimepiride 2 mg tablet 4 mg PO QAM Qty: 180 3RF levothyroxine 50 mcg tablet 50 mcg PO QAM Qty: 30 2RF sildenafil 25 mg tablet 25 mg PO DAILY PRN (Reason: sexual activity) Qty: 20 0RF Rx Instructions: administer 30 minutes to 4 hours before activity Lokelma 10 gram powder in packet 10 g PO DAILY Qty: 11 0RF Rx Instructions: daily x 3 days allopurinol 200 mg tablet 200 mg PO BID Qty: 180 2RF acetaminophen [Tylenol] 325 mg capsule 650 mg PO Q6H PRN (Reason: Fever Or Pain) hydrocortisone 2.5 % cream 1 applic TOPICAL BID PRN (Reason: Eczema) Rx Instructions: APPLY TO FACE AND EARS DIRECTED magnesium 250 mg Tablet 400 mg PO PM Rx Instructions: per spouse it's 400 mg daily instead of 250 mg Calquence 100 mg Capsule See Rx Instructions .ROUTE .COMPLEX Rx Instructions: per , this med is on hold calcium carbonate-vitamin D3 600 mg-5 mcg (200 unit) Tablet 1 tab PO PM oxycodone 5 mg tablet 5 mg PO DIRECTED Rx Instructions: q4h as needed for pain (4-6), may take 2 tabs for severe pain Referrals Referrals: Gabe Sorensen CRNP [Primary Care Provider] -
[2023-03-07 17:42] LABS: Base Excess VBG -3.9 mEq/L; HCO3 VBG 19 mmol/L; Oxygen Saturation VBG < 60.0 %; PCO2 VBG 29 mmHg (38-50); PO2 VBG 35 mmHg; pH VBG 7.43 (7.36-7.41)
--- NOTE | 2023-03-07 17:56 | XRay Report ---
XR chest 1V portable HISTORY: 67 years-old Male Sepsis acute sepsis COMPARISON: 01/07/2023 chest radiograph, PET/CT 12/25/2022 TECHNIQUE: AP view of the chest FINDINGS: Cardiac silhouette is enlarged. Lateral hilar enlargement is new/progressed from 01/07/2023. Patchy bib asilar and left midlung predominant airspace opacities. No pneumothorax or large pleural effusion. Le ft subclavian [id number] catheter. IMPRESSION: 1. Patchy bibasilar and left midlung airspace opacities may represent pneumonia. 2. Bilateral hilar enlargement likely represents underlying lymphadenopathy and may be related to dis ease progression in this patient with known leukemia. Findings are progressed compared to 01/07/2023. F ollow-up with oncology as needed. ACT 112: Negative or not required by law. The above report was generated using voice recognition software. It may contain grammatical, syntax o r spelling errors. Electronically signed by: Benedict Anderson M.D. 03/07/2023 5:55 PM
[2023-03-07 18:04] LABS: Hematocrit (blood only) 22.9 % (42.0-52.0); Hemoglobin 7.4 g/dl (14.0-18.0); Mean Corpuscular Hemoglobin 31.5 pg (25.0-34.0); Mean Corpuscular Hgb Conc 32.3 g/dL (32.0-36.0); Mean Corpuscular Volume 97.4 fL (80.0-100.0); Mean Platelet Volume 11.5 fL (9.4-12.4); Platelet Count 28 K/uL (130-400); RDW Coefficient of Variation 27.1 % (11.5-14.5); RDW Standard Deviation 93.4 fL (36.4-46.3); Red Blood Count 2.35 M/uL (4.70-6.10); White Blood Count 35.09 K/ul (4.8-10.8)
[2023-03-07 18:11] LABS: Albumin Level 3.7 gm/dl (3.4-5.0); BUN Creatinine Ratio 21.7 (10-20); Bilirubin Direct 0.3 mg/dl (0-0.2); Bilirubin,Total 1.3 mg/dl (0.2-1.0); Calcium 8.1 mg/dl (8.6-10.3); Creatinine Clr Calc Pharmacy 45.5 ml/min; Est GFR (African American) 38.4 ml/min; Est GFR (Non-African American) 33.2 ml/min; Magnesium 1.9 mg/dl (1.7-2.4); Potassium 4.7 mmol/L (3.5-5.1); Total Protein 6.3 gm/dl (6.0-8.3)
[2023-03-07] MEDS ORDERED: AZITHROMYCIN 500 MG in DEXTROSE 5% 250 ML IV STA (18:14)
[2023-03-07] MEDS ORDERED: SODIUM CHLORIDE 0.9% 2,000 ML IV ONE (18:14)
[2023-03-07] MEDS ORDERED: VANCOMYCIN HCL 2,250 MG in SODIUM CHLORIDE 0.9% 500 ML IV ONE (18:14)
[2023-03-07] MEDS ORDERED: VANCOMYCIN CONSULT ACTIVE PRN (18:14)
[2023-03-07] MEDS ORDERED: CEFEPIME 2,000 MG/20 ML VIAL IV STA (18:14)
[2023-03-07 18:18] LABS: Troponin I High Sensitivity 28.5 pg/ml (0-20)
[2023-03-07] MEDS ORDERED: DEXTROSE 50% 50 ML SYRINGE IV STA (18:18)
[2023-03-07 18:48] LABS: ALC (manual) 34.39 K/uL (1.2-3.4); Anisocytosis Present; Lymphocytes # (manual) 29.83 K/uL (1.2-3.4); Lymphocytes % (manual) 85 %; Neutrophils % (manual) 2 %; Polychromasia 1+; Prolymphocyte # (manual) 4.56 K/uL (0-0); Prolymphocyte % (manual) 13 %
[2023-03-07 19:04] LABS: Adenovirus PCR Not Detected (NotDetected); Bordetella parapertussis PCR Not Detected (NotDetected); Bordetella pertussis PCR Not Detected (NotDetected); Chlamydia pneumoniae PCR Not Detected (NotDetected); Coronavirus 229E PCR Not Detected (NotDetected); Coronavirus HKU1 PCR Not Detected (NotDetected); Coronavirus NL63 PCR Not Detected (NotDetected); Coronavirus OC43PCR Not Detected (NotDetected); Human Metapneumovirus PCR Not Detected (NotDetected); Influenza A PCR Not Detected (NotDetected); Influenza B PCR Not Detected (NotDetected); Mycoplasma pneumoniae PCR Not Detected (NotDetected); Parainfluenza Virus 1 PCR Not Detected (NotDetected); Parainfluenza Virus 2 PCR Not Detected (NotDetected); Parainfluenza Virus 3 PCR Not Detected (NotDetected); Parainfluenza Virus 4 PCR Not Detected (NotDetected); Respiratory Syncytial VirusPCR Not Detected (NotDetected)
[2023-03-07 19:17] LABS: Coronavirus CoV-2 (COVID19)PCR DETECTED (NotDetected); Rhinovirus/Enterovirus PCR DETECTED (NotDetected)
[2023-03-07 19:26] LABS: Appearance Urine Clear (Clear); Bacteria Urine Automated Negative (Negative); Bilirubin Urine Negative (Negative); Blood Urine Trace (Negative); Cast Urine Automated 0 /lpf (0-5); Color Urine Yellow; Epithelial Cell Urine Auto 0-5 /lpf (0-5); Glucose Urine UA Negative (Negative); Ketones Urine Negative (Negative); Leukocyte Esterase Urine Negative (Negative); Nitrite Urine Negative (Negative); Protein Urine 2+ (Negative); RBC Urine Automated 0-4 /hpf (0-4); Specific Gravity Urine 1.016 (1.000-1.030); Urobilinogen Urine Negative (Negative); pH Urine 5.5 (4.5-7.5)
--- NOTE | 2023-03-07 19:57 | History & Physical Report ---
Date of Service March 07, 2023 Assessment & Plan (1) Pneumonia: Plan: 67yo male with CLL, neutropenia (ANC 0.7), thrombocytopenia and anemia presenting with fever, cough, SOB. Patient now on BIPAP for increased work of breathing. Saturations have been adequate. No CO2 retention on most recent VBG. Bio[employer] panel with +Covid-19 as well as Enterovirus. Possible bacterial component as well given elevation of Procalcitonin to 1.8 Suspect that IVF given in ER causing volume overload contributing to patient's worsening respiratory state. He was given Lasix 40mg IV and placed on BiPAP. He has urinated several times. -Admit to PCU -Follow cultures sent from ER - blood and urine -Check sputum culture -Check MRSA nares -Continue BiPAP for respiratory support -Redose Lasix if needed -Azithromycin 250mg IV daily -Cefepime 2gm IV q 12h -Mucinex 1200mg po BID -Tylenol as needed for pain or fever (2) COVID-19: Plan: Patient diagnosed with Covid on 02/20/23. He was treated with Paxlovid. Sat urations have been adequate. -Maintain isolation precautions for now - patient immunocompromised with underlying malignancy - prolonged isolation recommended 20 days -Infection control for removal of Covid isolation precautions (3) Elevated troponin: Plan: Patient with minimal elevation of troponin. 28.5 --> 31.3. No acute ischemic changes on EKG. -Trend troponin -Check 2D echo to assess for WMA, ?failure (4) T2DM (type 2 diabetes mellitus): Plan: Patient with hypoglycemia upon arrival. Given D50 with improvement. Possibly secondary to underlying infection as well as decreased oral intake -ISS as needed (5) Chronic kidney disease: Plan: BUN and Cr mildly improved from prior. Patient follows with Nephrology. -Continue Allopurinol 200mg po BID -Avoid nephrotoxic agents -Renal dosing where needed (6) CLL (chronic lymphocytic leukemia): Plan: Patient with chronic anemia, thrombocytopenia. No active bleeding -Monitor H/H - transfuse for Hgb <7 -Maintain Neutropenic isolation precautions (7) Hypothyroidism: Plan: Chronic -Check TSH -Continue Synthroid F/E/N - Saline lock. Monitor electrolytes and replete as needed. CC diet as tolerated Ppx - SCDs Code - Full Dispo - Admit to PCU History of Present Illness Chief Complaint: shortness of breath Primary Care Provider: JAS Flores Alphonso Gray is a 67yo male with history of CLL, CKD, DM, HTN, HLP presenting to [facility] with SOB, cough and fever. Patient reports increased fatigue and shortness of breath since December 2022. He was diagnosed with Covid-19 infection on 02/20/23 and was treated with renally dosed Paxlovid. Patient with a sick family member at home with a URI. Patient follows with Dr. [facility]avar[facility] as well as Dr. Heaton from [facility]. He has ongoing thrombocytopenia, neutropenia likely secondary to CLL treatment. He was previously on Venetoclax which is on indefinite hold. He was previously on acalabrutinib as well which is currently on hold given the recent spontaneous hematoma.He has been off medications for his CLL since 01/12/23. Per request of his Oncology team, he did see a specialist in [place] on 03/05/23 to discuss starting therapy. He reports that he was febrile in the clinic there so was sent for additional workup and treatment. He had a CXR performed which revealed PNA. He was given 1L of IVF as well as Ceftriaxone and Azithromycin. He has been taking antibiotics since 03/05/23. Patient with three days of worsening shortness of breath, increased work of breathing and cough. Febrile at 102.3 today with worsening symptoms which prompted him to come to the ER. Upon arrival to the ER patient afebrile, tachycardic at 105bpm, blood pressure stable. He was saturating 95% on room air. Blood sugar low on initial labs at 58 - administered dextrose 50mL Patient developed increased anxiety while in the ER. He was given Ativan 2mg IV with some improvement. Later developed increased work of breathing, tachypnea with RR in the mid-30's. Patient re-examined and had coarse breath sounds and bilateral crackles to mid-lung field. He was administered Lasix 40mg IV and placed on BiPAP. VBG obtained (results below). ER Course: NSS x 2L Dextrose 50mL Vancomycin 2250mg IV Azithromycin 500mg IV Cefepime 2gm IV Ativan 2mg IV Lasix 40mg IV Allergies Allergy/AdvReac Type Severity Reaction Status Date / Time allopurinol Allergy Unknown Rash Verified 03/07/23 08:07 ibrutinib [From Imbruvica] Allergy Unknown LOOKED Verified 03/07/23 19:23 LIKE A LEOPARD SPOTTED ALL OVER NSAIDS (Non-Steroidal AdvReac Unknown DUE TO Verified 03/07/23 19:23 Anti-Inflamma DECREASED KIDNEY FUNCTION Home Medications Medication Instructions Recorded Confirmed Type hydrocortisone 2.5 % topical cream 1 applic topical BID PRN Eczema 07/27/19 03/07/23 History acetaminophen 325 mg capsule 650 mg PO Q6H PRN Fever Or Pain 12/10/19 03/07/23 History (Tylenol) sildenafil 25 mg tablet 25 mg PO DAILY PRN sexual activity 06/19/21 03/07/23 Rx #20 tabs blood-glucose meter #1 ea 11/20/21 03/07/23 Rx lancets (Accu-Chek Softclix #100 ea 11/20/21 03/07/23 Rx Lancets) blood sugar diagnostic #300 ea 11/23/21 03/07/23 Rx atorvastatin 40 mg tablet 40 mg PO QAM #90 tabs 02/05/22 03/07/23 Rx glimepiride 2 mg tablet 4 mg PO QAM #180 tabs 02/05/22 03/07/23 Rx multivitamin 1 tab PO DAILY 02/21/22 03/07/23 History acalabrutinib 100 mg capsule 0 mg PO DAILY 06/20/22 03/07/23 History (Calquence) levothyroxine 50 mcg tablet 50 mcg PO QAM #30 tabs 11/15/22 03/07/23 Rx oxycodone 5 mg tablet 5 mg PO Q4H PRN Pain 01/30/23 03/07/23 History allopurinol 200 mg tablet 200 mg PO BID #180 tabs 02/28/23 03/07/23 Rx amoxicillin 875 mg-potassium 1 tab PO Q12H 03/07/23 03/07/23 History clavulanate 125 mg tablet magnesium 200 mg tablet 400 mg PO DAILY 03/07/23 03/07/23 History Past Med/Surg History Medical History Anemia Bronchiolitis hx lingering cough illness 05/23 - current abx for/cough improving Cataract, left eye Chronic kidney disease STAGE III. Baseline Cr 1.6-1.8. Cirrhosis (01/19/19) Radiographic evidence on CT AP at [facility] during hospitalization - "Nodularity of the hepatic surface contour indicating early change of cirrhosis." CLL (chronic lymphocytic leukemia) (~2013) Diabetes mellitus, type 2 History of anesthesia problem per "feels he's probably a difficult intubation" Hyperlipidemia Hypertension Hypomagnesemia Hypothyroidism Lower extremity edema Lymphadenopathy Paronychia Port-A-Cath in place POWER/LEFT CHEST Presence of colostomy IN PROCESS OF COLOSTOMY REVERSAL/REASON FOR UPCOMING PROCEDURE. Stroke 2015--SPEECH IS SLIGHTLY SLOWER "word finding issue", slight facial droop when tired Thrombocytopenia Tinnitus of both ears Tumor lysis syndrome Hospitalized 07/27/19 - 07/30/19 - Improved with IVF and Rasburicase 6mg IV x 1. Surgical History H/O right cataract extraction History of bowel resection History of tooth extraction WISDOM TEETH History of vascular access device L CHEST/POWER S/P biopsy (~2019) Bone marrow biopsy x 2 S/P lymph node biopsy (11/11/19) Incisional Biopsy Left Axillary Node Dr. Chao 11/11/19 Status post excisional biopsy (06/21/22) Excisional biopsy left submandibular node (Left) - Harvey Chao MD, FACS Family History Father , 92yo TIA (transient ischemic attack) Diabetes Hypertension Mother , in 80s Endometrial cancer Lupus Heart valve replaced Diabetes Brother Bladder cancer Diabetes Hypertension Sister Diabetes Daughter No problems noted. Daughter No problems noted. 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 How many Children do You have: 2 Feels Safe at Home: Yes Diet: other caffeine: Yes (1 cup/day) during the past year weight has: decreased > 10 lbs Assistive Devices: Walker Review of Systems Review of Systems: All systems reviewed & are unremarkable except as noted in HPI & below Physical Exam Physical Exam: General: patient chronically ill in appearance, AA&O x 4 Skin: warm, dry, intact, warmth and redness RLE HEENT: NC/AT, PERRL, EOMI, anicteric sclera, conjunctiva without injection, external ear normal to inspection and nontender, nares patent, moist mucus membranes, dentition intact, no oropharyngeal lesions, neck supple, trachea midline, no LAD, no thyromegaly, no JVD Heart: +S1/S2, regular, tachycardic, no m/r/g Lungs: equal air entry bilaterally, coarse breath sounds with crackles to mid- lung field bilaterally Abd: +BS, soft, NT/ND, no masses/organomegaly/ascites, colostomy in place with healthy appearing stoma Ext: warm, 2+ pulses in UE/LE bilaterally, no clubbing/cyanosis, 1+ edema bilat eral LE R > L Neuro: nonfocal, patient AA&O x 4, speech intact, no facial droop, moving all extremities on command with equal strength 5/5 Results & Data Results & Data Vital Signs (Past 12 Hours) Vital Signs Temp Pulse Pulse Resp BP BP Pulse Ox 03/07/23 18:59 37.6 C H 03/07/23 18:47 137/76 03/07/23 18:47 106 H 20 96 03/07/23 18:45 105 H 24 96 03/07/23 18:30 108 H 27 H 96 03/07/23 18:30 134/73 03/07/23 18:15 108 H 28 H 94 03/07/23 18:10 108 H 29 H 94 03/07/23 18:11 108 H 03/07/23 18:00 110 H 22 143/73 H 95 03/07/23 17:34 93 03/07/23 16:59 114 H 25 H 135/64 93 O2 Del Method O2 Flow Rate 03/07/23 18:59 03/07/23 18:47 03/07/23 18:47 03/07/23 18:45 03/07/23 18:30 03/07/23 18:30 03/07/23 18:15 03/07/23 18:10 03/07/23 18:11 03/07/23 18:00 Nasal Cannula 2 03/07/23 17:34 Room Air 03/07/23 16:59 Room Air Laboratory Results Laboratory Results WBC 35.09 K/ul (4.8-10.8) H* 03/07/23 17: RBC 2.35 M/uL (4.70-6.10) L 03/07/23 17: Hgb 7.4 g/dl (14.0-18.0) L 03/07/23 17: POC Hgb 5.4 g/dl (14.0-18.0) L* 03/07/23 23:20 Hct 22.9 % (42.0-52.0) L 03/07/23 17: POC Hct 16 % (42-52) L* 03/07/23 23:20 MCV 97.4 fL (80.0-100.0) 03/07/23 17: MCH 31.5 pg (25.0-34.0) 03/07/23 17: MCHC 32.3 g/dL (32.0-36.0) 03/07/23: RDW Std Deviation 93.4 fL (36.4-46.3) H 03/07/23: RDW Coeff of Leonela 27.1 % (11.5-14.5) H 03/07/23 17: Plt Count 28 K/uL (130-400) L* 03/07/23 17: MPV 11.5 fL (9.4-12.4) 03/07/23 17: Neutrophils % (Manual) 2 % 03/07/23 17: Lymphocytes % (Manual) 85 % 03/07/23 17: Prolymphocyte % 13 % 03/07/23 17: Neutrophils # (Manual) 0.70 K/uL (1.40-6.50) L 03/07/23 17: Total Absolute Neuts 0.70 K/uL (1.4-6.5) L* 03/07/23 17: Lymphocytes # (Manual) 29.83 K/uL (1.2-3.4) H 03/07/23 17:23 Prolymphocyte # 4.56 K/uL (0-0) H 03/07/23 17:23 Total Abs Lymphocytes 34.39 K/uL (1.2-3.4) H 03/07/23 17:23 Polychromasia 1+ 03/07/23 17:23 Anisocytosis Present 03/07/23 17:23 Sample Site R Radial 03/07/23 23:20 POC pH 7.34 (7.35-7.45) L 03/07/23 23:20 POC pCO2 27 mmHg (35-46) L 03/07/23 23:20 POC pO2 35 mmHg (80-95) L 03/07/23 23:20 POC HCO3 15 lurdes/L (19-24) L 03/07/23 23:20 POC Total CO2 15 mmol/L (24-31) L 03/07/23 23:20 POC Base Excess -11.0 lurdes/L (-9-1.8) L 03/07/23 23:20 ABG pH (Temp Correct) 7.321 (7.35-7.45) L 03/07/23 23:20 ABG pCO2 (Temp Corrct 28 mmHg (35-46) L 03/07/23 23:20 POC ABG pO2 at Pt Temp 38 03/07/23 23:20 POC ABG O2 Sat 65.0 % (90-95) L 03/07/23 23:20 Alphonso Test NA 03/07/23 23:20 VBG pH 7.36 (7.36-7.41) 03/07/23 22:44 VBG pCO2 33 mmHg (38-50) L 03/07/23 22:44 VBG pO2 39 mmHg 03/07/23 22:44 VBG HCO3 19 mmol/L 03/07/23 22:44 VBG O2 Saturation 61.3 % 03/07/23 22:44 VBG Base Excess -5.9 mEq/L 03/07/23 22:44 O2 Delivery Device BIPAP 03/07/23 23:20 POC O2 Rate 15 03/07/23 23:20 POC FiO2 40 % 03/07/23 23:20 IPAP 10 03/07/23 23:20 POC Sodium 141 mmol/L (135-144) 03/07/23 23:20 Sodium 134 mmol/L (136-145) L 03/07/23 17:23 POC Potassium 3.3 mmol/L (3.3-5.0) 03/07/23 23:20 Potassium 4.7 mmol/L (3.5-5.1) 03/07/23 17: Chloride 104 mmol/L (98-107) 03/07/23 17: Carbon Dioxide 19 mmol/L (21-32) L 03/07/23 17: Anion Gap 11 (3-11) 03/07/23 17:23 BUN 44 mg/dl (6-23) H 03/07/23 17: Creatinine 2.03 mg/dl (0.6-1.4) H 03/07/23: Est Cr Clr Drug Dosing 45.5 ml/min 03/07/23: Est GFR ( Amer) 38.4 ml/min 03/07/23: Est GFR (Non-Af Amer) 33.2 ml/min 03/07/23: BUN/Creatinine Ratio 21.7 (10-20) H 03/07/23 17:23 Glucose 58 mg/dl (70-99(Fasting)) L 03/07/23 17: POC Glucose 127 mg/dl (70-99) H 03/07/23 18:52 Lactate 0.6 mmol/L (0.4-2.0) 03/07/23 17: Calcium 8.1 mg/dl (8.6-10.3) L 03/07/23 17: Phosphorus 4.0 mg/dl (2.5-4.9) 03/07/23 17: Magnesium 1.9 mg/dl (1.7-2.4) 03/07/23 17:23 Total Bilirubin 1.3 mg/dl (0.2-1.0) H 03/07/23 17: Direct Bilirubin 0.3 mg/dl (0-0.2) H 03/07/23 17:23 AST 20 U/L (13-39) 03/07/23 17:23 ALT 8 U/L (7-52) 03/07/23 17:23 Alkaline Phosphatase 85 U/L (34-104) 03/07/23 17:23 Troponin I High Sens 31.3 pg/ml (0-20) H 03/07/23 19:31 C-Reactive Protein 21.26 mg/dl (0-0.5) H 03/07/23 17:23 B-Natriuretic Peptide 260 pg/ml (0-100) H 03/07/23 17:23 Total Protein 6.3 gm/dl (6.0-8.3) 03/07/23 17: Albumin 3.7 gm/dl (3.4-5.0) 03/07/23 17: Procalcitonin 1.80 ng/ml (0-0.5) H 03/07/23 17:23 Urine Color Yellow 03/07/23 19:05 Urine Appearance Clear (Clear) 03/07/23 19: Urine pH 5.5 (4.5-7.5) 03/07/23 19:05 Ur Specific [place] 1.016 (1.000-1.030) 03/07/23 19:05 Urine Protein 2+ (Negative) H 03/07/23 19:05 Urine Glucose (UA) Negative (Negative) 03/07/23 19:05 Urine Ketones Negative (Negative) 03/07/23 19:05 Urine Blood Trace (Negative) H 03/07/23 19:05 Urine Nitrite Negative (Negative) 03/07/23 19:05 Urine Bilirubin Negative (Negative) 03/07/23 19:05 Urine Urobilinogen Negative (Negative) 03/07/23 19:05 Ur Leukocyte Esterase Negative (Negative) 03/07/23 19:05 Urine WBC (Auto) 1-5 /hpf (0-5) 03/07/23 19:05 Urine RBC (Auto) 0-4 /hpf (0-4) 03/07/23 19:05 U Hyaline Cast (Auto) 0 /lpf (0-5) 03/07/23 19:05 U Epithel Cells (Auto) 0-5 /lpf (0-5) 03/07/23 19:05 Urine Bacteria (Auto) Negative (Negative) 03/07/23 19:05 Urine Yeast Not Reportable 03/07/23 19:05 Adenovirus (PCR) Not Detected (NotDetected) 03/07/23 17:50 B. pertussis DNA (PCR) Not Detected (NotDetected) 03/07/23 17:50 B.parapertussis DNA PCR Not Detected (NotDetected) 03/07/23 17:50 C. pneumoniae DNA (PCR) Not Detected (NotDetected) 03/07/23 17:50 Coronavirus OC43 (PCR) Not Detected (NotDetected) 03/07/23 17:50 Coronavirus HKU1 (PCR) Not Detected (NotDetected) 03/07/23 17:50 Coronavirus 229E (PCR) Not Detected (NotDetected) 03/07/23 17:50 SARS-CoV-2 (PCR) DETECTED (NotDetected) A* 03/07/23 17:50 Coronavirus NL63 (PCR) Not Detected (NotDetected) 03/07/23 17:50 Human Metapneumovir PCR Not Detected (NotDetected) 03/07/23 17:50 Influenza Type A (PCR) Not Detected (NotDetected) 03/07/23 17:50 Influenza Type B (PCR) Not Detected (NotDetected) 03/07/23 17:50 M. pneumoniae (PCR) Not Detected (NotDetected) 03/07/23 17:50 Parainfluenza 1 (PCR) Not Detected (NotDetected) 03/07/23 17:50 Parainfluenza 2 (PCR) Not Detected (NotDetected) 03/07/23 17:50 Parainfluenza 3 (PCR) Not Detected (NotDetected) 03/07/23 17:50 Parainfluenza 4 (PCR) Not Detected (NotDetected) 03/07/23 17:50 RSV (PCR) Not Detected (NotDetected) 03/07/23 17:50 Entero/Rhino (PCR) DETECTED (NotDetected) A* 03/07/23 17:50 Blood Type O Negative 03/07/23 17:23 Antibody Screen NEGATIVE 03/07/23 17:23 Impressions Chest X-Ray 03/07/23 17:08 XR chest 1V portable HISTORY: 67 years-old Male Sepsis acute sepsis COMPARISON: 01/07/2023 chest radiograph, PET/CT 12/25/2022 TECHNIQUE: AP view of the chest FINDINGS: Cardiac silhouette is enlarged. Lateral hilar enlargement is new/progressed from 01/07/2023. Patchy bibasilar and left midlung predominant airspace opacities. No pneumothorax or large pleural effusion. Left subclavian [id number] catheter. IMPRESSION: 1. Patchy bibasilar and left midlung airspace opacities may represent pneumonia. 2. Bilateral hilar enlargement likely represents underlying lymphadenopathy and may be related to disease progression in this patient with known leukemia. Findings are progressed compared to 01/07/2023. Follow-up with oncology as needed. ACT 112: Negative or not required by law. The above report was generated using voice recognition software. It may contain grammatical, syntax or spelling errors. Electronically signed by: Benedict Anderson M.D. 03/07/2023 5:55 PM ECG Additional Comments: VZ=685, low voltage QRS, YB=143, QRs=84, WOl=965, no acute ischemic changes Code Status & VTE Plan VTE Prophylaxis Plan VTE Prophylaxis will be ordered: Yes Reason for no VTE drug order: Contraindicated PG Care Time/CCT Total # of Minutes Spent Total Time Spent with Patient: Total time spent is greater than 50% in coordination of care (as documented) at patient's floor/unit and/or counseling patient: Coding Level of Care Code 84787 INT INP/OBS CARE 3/75MIN Diagnoses Pneumonia J18.9 COVID-19 U07.1 Elevated troponin R79.89 T2DM (type 2 diabetes mellitus) E11.9 Chronic kidney disease N18.9 CLL (chronic lymphocytic leukemia) C91.90 Hypothyroidism E03.9
[2023-03-07] MEDS ORDERED: LORazepam 1 MG TAB PO STA (20:33)
[2023-03-07] MEDS ORDERED: LORazepam 2 MG/1 ML VIAL IV STA (20:40)
[2023-03-07] MEDS ORDERED: LORazepam 2 MG/1 ML VIAL ONE (20:42)
[2023-03-07] MEDS ORDERED: FUROSEMIDE 40 MG/4 ML VIAL IV ONE (21:09)
[2023-03-07] MEDS ORDERED: LEVALBUTEROL HCL 0.63 MG/3 ML NEB NEB STA (21:14)
[2023-03-07 22:51] LABS: Base Excess VBG -5.9 mEq/L; HCO3 VBG 19 mmol/L; Oxygen Saturation VBG 61.3 %; PCO2 VBG 33 mmHg (38-50); PO2 VBG 39 mmHg; pH VBG 7.36 (7.36-7.41)
[2023-03-07] MEDS ORDERED: HYDROcodone/HOMATROPINE SYRUP 5MG/1.5MG 5ML UDP PO PRN (22:54)
[2023-03-07] MEDS ORDERED: GLUCOSE 40% GEL 15 GM TUBE PO PRN (22:54)
[2023-03-07] MEDS ORDERED: GLUCAGON FOR INJ 1 MG VIAL SQ PRN (22:54)
[2023-03-07] MEDS ORDERED: GLUCOSE 10 TAB/TUBE PO PRN (22:54)
[2023-03-07] MEDS ORDERED: LACTATED RINGER'S 250 ML IV ONE (22:54)
[2023-03-07 23:14] LABS: C Reactive Protein 21.26 mg/dl (0-0.5)
[2023-03-07 23:35] LABS: iSTAT Art Bld Gas pCO2 Correct 28 mmHg (35-46); iSTAT Art Bld Gas pH Corrected 7.321 (7.35-7.45); iSTAT Arterial Blood Gas HCO3 15 meg/L (19-24); iSTAT Arterial Blood Gas pCO2 27 mmHg (35-46); iSTAT Arterial Blood Gas pH 7.34 (7.35-7.45); iSTAT Arterial Blood Gas pO2 35 mmHg (80-95); iSTAT Arterial Blood Gas pO2 C 38; iSTAT Carbon Dioxide 15 mmol/L (24-31); iSTAT FiO2 40 %; iSTAT Hematocrit 16 % (42-52); iSTAT Hemoglobin 5.4 g/dl (14.0-18.0); iSTAT Potassium 3.3 mmol/L (3.3-5.0); iSTAT Site R Radial; iSTAT Sodium 141 mmol/L (135-144)
[2023-03-08] MEDS ORDERED: HEPARIN 100 UNIT/ML 5ML FLUSH FLUSH PRN (00:06)
[2023-03-08] MEDS: guaiFENesin 600 MG TABCR PO SCH ×3 (01:07→19:53)
[2023-03-08] MEDS: INSULIN ASPART PER UNIT CHARGE SC SCH ×5 (01:07→22:11)
[2023-03-08] MEDS: allopurinoL 100 MG TAB PO SCH ×3 (01:07→19:53)
[2023-03-08] MEDS: ACETAMINOPHEN 325 MG TAB PO PRN ×4 (02:00→17:21)
[2023-03-08] MEDS ORDERED: VANCOMYCIN HCL 1,000 MG in SODIUM CHLORIDE 0.9% 250 ML IV SCH (04:00)
[2023-03-08 04:26] LABS: Albumin Level 3.4 gm/dl (3.4-5.0); Bilirubin Direct 0.2 mg/dl (0-0.2); Bilirubin,Total 0.9 mg/dl (0.2-1.0); Calcium 7.8 mg/dl (8.6-10.3); Creatinine Clr Calc Pharmacy 47.3 ml/min; Est GFR (African American) 40.4 ml/min; Est GFR (Non-African American) 34.8 ml/min; Potassium 3.5 mmol/L (3.5-5.1); Total Protein 5.7 gm/dl (6.0-8.3)
[2023-03-08 04:28] LABS: Hematocrit (blood only) 20.2 % (42.0-52.0); Hemoglobin 6.5 g/dl (14.0-18.0); Mean Corpuscular Hgb Conc 32.2 g/dL (32.0-36.0); Mean Corpuscular Volume 99.5 fL (80.0-100.0); Mean Platelet Volume 12.6 fL (9.4-12.4); Platelet Count 23 K/uL (130-400); RDW Coefficient of Variation 27.8 % (11.5-14.5); RDW Standard Deviation 97.1 fL (36.4-46.3); Red Blood Count 2.03 M/uL (4.70-6.10); White Blood Count 25.34 K/ul (4.8-10.8)
[2023-03-08] MEDS: DEXTROSE 50% 50 ML SYRINGE IV PRN ×2 (04:35→06:07)
[2023-03-08 04:40] LABS: Thyroid Stimulating Hormone 14.405 uIu/ml (0.300-4.500)
[2023-03-08] MEDS ORDERED: SODIUM CHLORIDE 0.9% 250 ML IV PRN (04:50)
[2023-03-08 05:34] LABS: T4 Free Thyroxine 0.9 ng/dl (0.61-1.60)
[2023-03-08] MEDS: CEFEPIME 2,000 MG in SYRINGE 0 ML IV SCH ×2 (05:51→19:52)
[2023-03-08] MEDS: LEVOTHYROXINE SODIUM 50 MCG TABLET PO SCH ×2 (05:51→08:15)
[2023-03-08] MEDS: ATORVASTATIN 40 MG TAB PO SCH (08:15)
[2023-03-08] MEDS ORDERED: FUROSEMIDE 40 MG/4 ML VIAL IV ONE ×2 (08:53→12:19)
[2023-03-08] MEDS ORDERED: ENOXAPARIN INJ 40 MG/0.4 ML SYR SQ SCH (09:00)
--- NOTE | 2023-03-08 11:20 | Pharmacy Report ---
Pharmacy PK ABX Note - Date of Service March 08, 2023 - Assessment and Plan Assessment 67 year old M receiving vancomycin, cefepime, and azithromycin for treatment of pneumonia. History of CLL, febrile/neutropenic. MRSA nasal (-). CKD- SCr ~ baseline. Day #2 of antimicrobial therapy. Plan Vancomycin * Loading dose: 2250 mg IV x 1 * Maintenance dose: 1000 mg IV every 18 hours * Regimen is predicted to achieve target AUC/MYAH of 400-600 mg/L.hr * Will obtain a level in 48h if vancomycin continued Pharmacy will continue to follow and will adjust dose/frequency as necessary. Thank you. Pharmacy has transitioned to AUC monitoring for vancomycin. AUC/MYAH is the preferred PK/PD target and is associated with decreased risk of nephrotoxicity compared to traditional trough targets.
--- NOTE | 2023-03-08 11:56 | XCELERA ---
[id number]
--- NOTE | 2023-03-08 12:14 | Electrocardiogram Report ---
Test Reason : Blood Pressure : / mmHG Vent. Rate : 111 BPM Atrial Rate : 111 BPM P-R Int : 180 ms QRS Dur : 084 ms QT Int : 308 ms P-R-T Axes : 011 -10 081 degrees QTc Int : 418 ms Sinus tachycardia Low voltage QRS Septal infarct (cited on or before 07-MAR-2023) Abnormal ECG When compared with ECG of 04-FEB-2023 18:21, GA interval has decreased Questionable change in initial forces of Septal leads Confirmed by Rolo Michele ([id number]) on 03/08/2023 12:14:27 PM Referred By: REFERRED SELF Confirmed By:Rolo Michele
--- NOTE | 2023-03-08 12:16 | Electrocardiogram Report ---
Test Reason : Blood Pressure : / mmHG Vent. Rate : 101 BPM Atrial Rate : 101 BPM P-R Int : 188 ms QRS Dur : 076 ms QT Int : 332 ms P-R-T Axes : 006 -16 048 degrees QTc Int : 430 ms Sinus tachycardia Low voltage QRS Septal infarct (cited on or before 07-MAR-2023) Abnormal ECG When compared with ECG of 07-MAR-2023 17:26, (unconfirmed) No significant change was found Confirmed by Rolo Michele ([id number]) on 03/08/2023 12:15:30 PM Referred By: REFERRED SELF Confirmed By:Rolo Michele
[2023-03-08] MEDS ORDERED: Nursing to Pharmacy Communication SCH (12:30)
[2023-03-08] MEDS ORDERED: POTASSIUM CHLORIDE / WTR 10 MEQ/100 ML PLCT IV SCH (12:30)
--- NOTE | 2023-03-08 13:03 | Hospitalist Progress Note ---
Date of Service March 08, 2023 Assessment & Plan (1) Pneumonia: Plan: 67yo male with CLL, neutropenia (ANC 0.7), thrombocytopenia and anemia presenting with fever, cough, SOB. patient was initially on BIPAP for increased work of breathing. [employer] panel with +Covid-19 as well as Enterovirus. Possible bacterial component as well given elevation of Procalcitonin to 1.8 Suspect that IVF given in ER causing volume overload contributing to patient's worsening respiratory state. He was given Lasix 40mg IV and placed on BiPAP. He has urinated several times. -Follow cultures sent from ER - blood and urine -Check sputum culture - MRSA nares negative Currently on vancomycin, cefepime, azithromycin. Discontinue vancomycin since MRSA negative off of BiPAP continue supportive treatment (2) COVID-19: Plan: Patient diagnosed with Covid on 02/20/23. He was treated with Paxlovid. Saturations have been adequate. -Maintain isolation precautions for now - patient immunocompromised with underlying malignancy - prolonged isolation recommended 20 days -Infection control for removal of Covid isolation precautions (3) Elevated troponin: Plan: Patient with minimal elevation of troponin. 28.5 --> 31.3. No acute ischemic changes on EKG. -Trend troponin - echo showed no wall motion abnormalities or depressed EF (4) T2DM (type 2 diabetes mellitus): Plan: Patient with hypoglycemia upon arrival. Given D50 with improvement. Possibly secondary to underlying infection as well as decreased oral intake -ISS as needed (5) Chronic kidney disease: Plan: BUN and Cr mildly improved from prior. Patient follows with Nephrology. -Continue Allopurinol 200mg po BID -Avoid nephrotoxic agents -Renal dosing where needed (6) CLL (chronic lymphocytic leukemia): Plan: Patient with chronic anemia, thrombocytopenia. No active bleeding -Monitor H/H - transfuse for Hgb <7 -Maintain Neutropenic isolation precautions Pancytopenia likely secondary to CLL or chemotherapy (7) Hypothyroidism: Plan: Chronic -Continue Synthroid (8) Neutropenic fever: Plan: covered with broad-spectrum antibiotics. Vancomycin discontinued due to negative MRSA nares Hemodynamically stable (9) Enterovirus infection: Plan: continue supportive treatment (10) Acute diastolic CHF (congestive heart failure): Plan: patient appears to be volume overloaded and responded to Lasix Patient is now getting blood transfusion. We ordered another dose of 40 mg IV Lasix Potassium supplements Echocardiogram showed preserved EF (11) Acute hypoxic respiratory failure: Plan: patient has air hunger and unable to complete sentences with increased effort Likely multifactorial due to fluid overload, acute diastolic CHF, bacterial and viral pneumonia Continue diuretics, antibiotics and supportive treatment Plan F/E/N - Saline lock. Monitor electrolytes and replete as needed. CC diet as tolerated Ppx - SCDs (Lovenox discontinued due to thrombocytopenia and anemia) Code - Full Admission and Anticipated Discharge Date Admission Date: March 07, 2023 Subjective Patient was short of breath earlier, per nurse. Diuresed after a dose of Lasix and now breathing better. Patient is still having trouble breathing, unable to complete sentences. Review of Systems Review of Systems: All systems reviewed & are unremarkable except as noted in Subjective Physical Exam Physical Exam: General: Awake, conversant Heart: S1, S2/regular rate and rhythm, no murmur rubs or gallops Lungs: bibasilar crackles. Increased effort. Unable to complete sentences. Abdomen: Soft/nontender/nondistended. No hepatosplenomegaly Extremities: No clubbing/cyanosis. 1-2+ pitting bilateral edema Behavior: Appropriate, cooperative Results & Data Results & Data Vital Signs (Past 12 Hours) Vital Signs Temp Pulse Pulse Resp BP BP Pulse Ox 03/08/23 10:30 38.1 C H 88 24 99 03/08/23 10:30 119/60 03/08/23 10:37 03/08/23 08:00 03/08/23 09:58 98 03/08/23 09:53 37.5 C 88 21 126/64 97 03/08/23 08:30 88 29 H 94 03/08/23 08:30 136/60 03/08/23 08:16 87 27 H 100 03/08/23 08:16 143/75 H 03/08/23 08:01 80 23 98 03/08/23 08:01 130/59 L 03/08/23 08:00 81 25 H 97 03/08/23 07:46 117/70 03/08/23 07:46 84 23 100 03/08/23 09:00 36.9 C 90 21 142/55 H 96 03/08/23 07:30 77 21 99 03/08/23 07:30 120/63 03/08/23 07:01 78 27 H 100 03/08/23 07:01 136/69 03/08/23 07:00 75 21 96 03/08/23 06:45 76 22 100 03/08/23 06:45 134/57 L 03/08/23 06:30 76 22 100 03/08/23 06:30 37.7 C H 134/70 03/08/23 06:16 77 22 100 03/08/23 06:16 136/67 03/08/23 06:00 76 20 99 03/08/23 06:00 133/81 03/08/23 05:30 68 18 98 03/08/23 05:00 66 19 97 03/08/23 05:00 116/61 03/08/23 04:30 71 19 99 03/08/23 04:00 72 19 97 03/08/23 04:00 123/52 L 03/08/23 03:42 74 21 97 03/08/23 03:42 118/52 L 03/08/23 03:30 75 21 99 03/08/23 03:00 77 21 98 03/08/23 04:01 37.7 C H 03/08/23 03:03 83 23 98 03/08/23 02:30 84 22 98 03/08/23 02:15 82 25 H 99 03/08/23 02:01 88 28 H 94 03/08/23 02:01 142/72 H 03/08/23 02:00 87 25 H 94 03/08/23 01:45 83 26 H 97 03/08/23 01:30 88 29 H 99 03/08/23 01:15 92 H 26 H 99 03/08/23 01:00 91 H 26 H 98 03/08/23 01:00 135/67 03/08/23 05:54 37.7 C H 71 18 116/61 100 03/08/23 01:00 03/08/23 01:00 38.8 C H 91 H 35 H 138/61 92 03/08/23 01:30 87 39 H 99 O2 Del Method O2 Flow Rate FiO2 03/08/23 10:30 03/08/23 10:30 03/08/23 10:37 Nasal Cannula 03/08/23 08:00 Nasal Cannula 4 03/08/23 09:58 Nasal Cannula 4 03/08/23 09:53 4 03/08/23 08:30 03/08/23 08:30 03/08/23 08:16 03/08/23 08:16 03/08/23 08:01 03/08/23 08:01 03/08/23 08:00 03/08/23 07:46 03/08/23 07:46 03/08/23 09:00 4 03/08/23 07:30 03/08/23 07:30 03/08/23 07:01 03/08/23 07:01 03/08/23 07:00 03/08/23 06:45 03/08/23 06:45 03/08/23 06:30 03/08/23 06:30 03/08/23 06:16 03/08/23 06:16 03/08/23 06:00 03/08/23 06:00 03/08/23 05:30 03/08/23 05:00 03/08/23 05:00 03/08/23 04:30 03/08/23 04:00 03/08/23 04:00 03/08/23 03:42 03/08/23 03:42 03/08/23 03:30 03/08/23 03:00 03/08/23 04:01 03/08/23 03:03 40 03/08/23 02:30 03/08/23 02:15 03/08/23 02:01 03/08/23 02:01 03/08/23 02:00 03/08/23 01:45 03/08/23 01:30 03/08/23 01:15 03/08/23 01:00 03/08/23 01:00 03/08/23 05:54 03/08/23 01:00 Mechanical Vent 03/08/23 01:00 BiPAP 40 03/08/23 01:30 40 Laboratory Results Abnormal lab results 03/07/23 03/07/23 03/07/23 Range/Units 17:23 17:23 17:23 WBC 35.09 H* (4.8-10.8) K/ul RBC 2.35 L (4.70-6.10) M/uL Hgb 7.4 L (14.0-18.0) g/dl POC Hgb (14.0-18.0) g/dl Hct 22.9 L (42.0-52.0) % POC Hct (42-52) % RDW Std Deviation 93.4 H (36.4-46.3) fL RDW Coeff of Leonela 27.1 H (11.5-14.5) % Plt Count 28 L* (130-400) K/uL MPV (9.4-12.4) fL Neutrophils # (Manual) 0.70 L (1.40-6.50) K/uL Total Absolute Neuts 0.70 L* (1.4-6.5) K/uL Lymphocytes # (Manual) 29.83 H (1.2-3.4) K/uL Prolymphocyte # 4.56 H (0-0) K/uL Total Abs Lymphocytes 34.39 H (1.2-3.4) K/uL POC pH (7.35-7.45) POC pCO2 (35-46) mmHg POC pO2 (80-95) mmHg POC HCO3 (19-24) lurdes/L POC Total CO2 (24-31) mmol/L POC Base Excess (-9-1.8) lurdes/L ABG pH (Temp Correct) (7.35-7.45) ABG pCO2 (Temp Corrct (35-46) mmHg POC ABG O2 Sat (90-95) % VBG pH (7.36-7.41) VBG pCO2 (38-50) mmHg Sodium 134 L (136-145) mmol/L Chloride (98-107) mmol/L Carbon Dioxide 19 L (21-32) mmol/L BUN 44 H (6-23) mg/dl Creatinine 2.03 H (0.6-1.4) mg/dl BUN/Creatinine Ratio 21.7 H (10-20) Glucose 58 L (70-99(Fasting)) mg/dl POC Glucose (70-99) mg/dl Calcium 8.1 L (8.6-10.3) mg/dl Total Bilirubin 1.3 H (0.2-1.0) mg/dl Direct Bilirubin 0.3 H (0-0.2) mg/dl Troponin I High Sens 28.5 H (0-20) pg/ml C-Reactive Protein 21.26 H (0-0.5) mg/dl B-Natriuretic Peptide (0-100) pg/ml Total Protein (6.0-8.3) gm/dl Procalcitonin (0-0.5) ng/ml TSH (0.300-4.500) uIu/ml Urine Protein (Negative) Urine Blood (Negative) SARS-CoV-2 (PCR) (NotDetected) Entero/Rhino (PCR) (NotDetected) Crossmatch See Detail 03/07/23 03/07/23 03/07/23 Range/Units 17:23 17:23 17:23 WBC (4.8-10.8) K/ul RBC (4.70-6.10) M/uL Hgb (14.0-18.0) g/dl POC Hgb (14.0-18.0) g/dl Hct (42.0-52.0) % POC Hct (42-52) % RDW Std Deviation (36.4-46.3) fL RDW Coeff of Leonela (11.5-14.5) % Plt Count (130-400) K/uL MPV (9.4-12.4) fL Neutrophils # (Manual) (1.40-6.50) K/uL Total Absolute Neuts (1.4-6.5) K/uL Lymphocytes # (Manual) (1.2-3.4) K/uL Prolymphocyte # (0-0) K/uL Total Abs Lymphocytes (1.2-3.4) K/uL POC pH (7.35-7.45) POC pCO2 (35-46) mmHg POC pO2 (80-95) mmHg POC HCO3 (19-24) lurdes/L POC Total CO2 (24-31) mmol/L POC Base Excess (-9-1.8) lurdes/L ABG pH (Temp Correct) (7.35-7.45) ABG pCO2 (Temp Corrct (35-46) mmHg POC ABG O2 Sat (90-95) % VBG pH 7.43 H (7.36-7.41) VBG pCO2 29 L (38-50) mmHg Sodium (136-145) mmol/L Chloride (98-107) mmol/L Carbon Dioxide (21-32) mmol/L BUN (6-23) mg/dl Creatinine (0.6-1.4) mg/dl BUN/Creatinine Ratio (10-20) Glucose (70-99(Fasting)) mg/dl POC Glucose (70-99) mg/dl Calcium (8.6-10.3) mg/dl Total Bilirubin (0.2-1.0) mg/dl Direct Bilirubin (0-0.2) mg/dl Troponin I High Sens (0-20) pg/ml C-Reactive Protein (0-0.5) mg/dl B-Natriuretic Peptide 260 H (0-100) pg/ml Total Protein (6.0-8.3) gm/dl Procalcitonin 1.80 H (0-0.5) ng/ml TSH (0.300-4.500) uIu/ml Urine Protein (Negative) Urine Blood (Negative) SARS-CoV-2 (PCR) (NotDetected) Entero/Rhino (PCR) (NotDetected) Crossmatch 03/07/23 03/07/23 03/07/23 Range/Units 17:50 18:52 19:05 WBC (4.8-10.8) K/ul RBC (4.70-6.10) M/uL Hgb (14.0-18.0) g/dl POC Hgb (14.0-18.0) g/dl Hct (42.0-52.0) % POC Hct (42-52) % RDW Std Deviation (36.4-46.3) fL RDW Coeff of Leonela (11.5-14.5) % Plt Count (130-400) K/uL MPV (9.4-12.4) fL Neutrophils # (Manual) (1.40-6.50) K/uL Total Absolute Neuts (1.4-6.5) K/uL Lymphocytes # (Manual) (1.2-3.4) K/uL Prolymphocyte # (0-0) K/uL Total Abs Lymphocytes (1.2-3.4) K/uL POC pH (7.35-7.45) POC pCO2 (35-46) mmHg POC pO2 (80-95) mmHg POC HCO3 (19-24) lurdes/L POC Total CO2 (24-31) mmol/L POC Base Excess (-9-1.8) lurdes/L ABG pH (Temp Correct) (7.35-7.45) ABG pCO2 (Temp Corrct (35-46) mmHg POC ABG O2 Sat (90-95) % VBG pH (7.36-7.41) VBG pCO2 (38-50) mmHg Sodium (136-145) mmol/L Chloride (98-107) mmol/L Carbon Dioxide (21-32) mmol/L BUN (6-23) mg/dl Creatinine (0.6-1.4) mg/dl BUN/Creatinine Ratio (10-20) Glucose (70-99(Fasting)) mg/dl POC Glucose 127 H (70-99) mg/dl Calcium (8.6-10.3) mg/dl Total Bilirubin (0.2-1.0) mg/dl Direct Bilirubin (0-0.2) mg/dl Troponin I High Sens (0-20) pg/ml C-Reactive Protein (0-0.5) mg/dl B-Natriuretic Peptide (0-100) pg/ml Total Protein (6.0-8.3) gm/dl Procalcitonin (0-0.5) ng/ml TSH (0.300-4.500) uIu/ml Urine Protein 2+ H (Negative) Urine Blood Trace H (Negative) SARS-CoV-2 (PCR) DETECTED A* (NotDetected) Entero/Rhino (PCR) DETECTED A* (NotDetected) Crossmatch 03/07/23 03/07/23 03/07/23 Range/Units 19:31 22:44 23:20 WBC (4.8-10.8) K/ul RBC (4.70-6.10) M/uL Hgb (14.0-18.0) g/dl POC Hgb 5.4 L* (14.0-18.0) g/dl Hct (42.0-52.0) % POC Hct 16 L* (42-52) % RDW Std Deviation (36.4-46.3) fL RDW Coeff of Leonela (11.5-14.5) % Plt Count (130-400) K/uL MPV (9.4-12.4) fL Neutrophils # (Manual) (1.40-6.50) K/uL Total Absolute Neuts (1.4-6.5) K/uL Lymphocytes # (Manual) (1.2-3.4) K/uL Prolymphocyte # (0-0) K/uL Total Abs Lymphocytes (1.2-3.4) K/uL POC pH 7.34 L (7.35-7.45) POC pCO2 27 L (35-46) mmHg POC pO2 35 L (80-95) mmHg POC HCO3 15 L (19-24) lurdes/L POC Total CO2 15 L (24-31) mmol/L POC Base Excess -11.0 L (-9-1.8) lurdes/L ABG pH (Temp Correct) 7.321 L (7.35-7.45) ABG pCO2 (Temp Corrct 28 L (35-46) mmHg POC ABG O2 Sat 65.0 L (90-95) % VBG pH (7.36-7.41) VBG pCO2 33 L (38-50) mmHg Sodium (136-145) mmol/L Chloride (98-107) mmol/L Carbon Dioxide (21-32) mmol/L BUN (6-23) mg/dl Creatinine (0.6-1.4) mg/dl BUN/Creatinine Ratio (10-20) Glucose (70-99(Fasting)) mg/dl POC Glucose (70-99) mg/dl Calcium (8.6-10.3) mg/dl Total Bilirubin (0.2-1.0) mg/dl Direct Bilirubin (0-0.2) mg/dl Troponin I High Sens 31.3 H (0-20) pg/ml C-Reactive Protein (0-0.5) mg/dl B-Natriuretic Peptide (0-100) pg/ml Total Protein (6.0-8.3) gm/dl Procalcitonin (0-0.5) ng/ml TSH (0.300-4.500) uIu/ml Urine Protein (Negative) Urine Blood (Negative) SARS-CoV-2 (PCR) (NotDetected) Entero/Rhino (PCR) (NotDetected) Crossmatch 03/08/23 03/08/23 Range/Units 03:35 03:35 WBC 25.34 H (4.8-10.8) K/ul RBC 2.03 L (4.70-6.10) M/uL Hgb 6.5 L* (14.0-18.0) g/dl POC Hgb (14.0-18.0) g/dl Hct 20.2 L* (42.0-52.0) % POC Hct (42-52) % RDW Std Deviation 97.1 H (36.4-46.3) fL RDW Coeff of Leonela 27.8 H (11.5-14.5) % Plt Count 23 L* (130-400) K/uL MPV 12.6 H (9.4-12.4) fL Neutrophils # (Manual) (1.40-6.50) K/uL Total Absolute Neuts (1.4-6.5) K/uL Lymphocytes # (Manual) (1.2-3.4) K/uL Prolymphocyte # (0-0) K/uL Total Abs Lymphocytes (1.2-3.4) K/uL POC pH (7.35-7.45) POC pCO2 (35-46) mmHg POC pO2 (80-95) mmHg POC HCO3 (19-24) lurdes/L POC Total CO2 (24-31) mmol/L POC Base Excess (-9-1.8) lurdes/L ABG pH (Temp Correct) (7.35-7.45) ABG pCO2 (Temp Corrct (35-46) mmHg POC ABG O2 Sat (90-95) % VBG pH (7.36-7.41) VBG pCO2 (38-50) mmHg Sodium (136-145) mmol/L Chloride 108 H (98-107) mmol/L Carbon Dioxide 20 L (21-32) mmol/L BUN 41 H (6-23) mg/dl Creatinine 1.95 H (0.6-1.4) mg/dl BUN/Creatinine Ratio 21.0 H (10-20) Glucose 44 L* (70-99(Fasting)) mg/dl POC Glucose (70-99) mg/dl Calcium 7.8 L (8.6-10.3) mg/dl Total Bilirubin (0.2-1.0) mg/dl Direct Bilirubin (0-0.2) mg/dl Troponin I High Sens (0-20) pg/ml C-Reactive Protein (0-0.5) mg/dl B-Natriuretic Peptide (0-100) pg/ml Total Protein 5.7 L (6.0-8.3) gm/dl Procalcitonin (0-0.5) ng/ml TSH 14.405 H (0.300-4.500) uIu/ml Urine Protein (Negative) Urine Blood (Negative) SARS-CoV-2 (PCR) (NotDetected) Entero/Rhino (PCR) (NotDetected) Crossmatch Diagnostic Findings Chest X-Ray 03/07/23 17:08 XR chest 1V portable HISTORY: 67 years-old Male Sepsis acute sepsis COMPARISON: 01/07/2023 chest radiograph, PET/CT 12/25/2022 TECHNIQUE: AP view of the chest FINDINGS: Cardiac silhouette is enlarged. Lateral hilar enlargement is new/progressed from 01/07/2023. Patchy bibasilar and left midlung predominant airspace opacities. No pneumothorax or large pleural effusion. Left subclavian [id number] catheter. IMPRESSION: 1. Patchy bibasilar and left midlung airspace opacities may represent pneumonia. 2. Bilateral hilar enlargement likely represents underlying lymphadenopathy and may be related to disease progression in this patient with known leukemia. Findings are progressed compared to 01/07/2023. Follow-up with oncology as needed. ACT 112: Negative or not required by law. The above report was generated using voice recognition software. It may contain grammatical, syntax or spelling errors. Electronically signed by: Benedict Anderson M.D. 03/07/2023 5:55 PM PG Care Time/CCT Total # of Minutes Spent Total Time Spent with Patient: Total time spent is greater than 50% in coordination of care (as documented) at patient's floor/unit and/or counseling patient: Coding Level of Care Code 12236 SUB INP/OBS CARE 2/35MIN Diagnoses Pneumonia J18.9 COVID-19 U07.1 Elevated troponin R79.89 T2DM (type 2 diabetes mellitus) E11.9 Chronic kidney disease N18.9 CLL (chronic lymphocytic leukemia) C91.90 Hypothyroidism E03.9 Neutropenic fever D70.9; R50.81 Enterovirus infection B34.1 Acute diastolic CHF (congestive heart failure) I50.31 Acute hypoxic respiratory failure J96.01
[2023-03-08] MEDS: POTASSIUM CHLORIDE / WTR 20 MEQ/100 ML PLCT IV SCH ×2 (13:20→15:26)
[2023-03-08] MEDS: CARBOHYDRATES FOR HYPOGLYCEMIA PO PRN ×2 (16:54→17:12)
[2023-03-08] MEDS ORDERED: LORazepam 0.5 MG TAB PO STA (18:53)
[2023-03-08] MEDS: oxyCODONE HCL IR 5 MG TAB (IMMEDIATE RELEASE) PO PRN (19:52)
[2023-03-08] MEDS: AZITHROMYCIN 250 MG in DEXTROSE 5% 250 ML IV SCH (19:52)
[2023-03-09 04:42] LABS: Anion Gap 10 (3-11); BUN Creatinine Ratio 22.1 (10-20); Blood Urea Nitrogen 42 mg/dl (6-23); Calcium 7.6 mg/dl (8.6-10.3); Carbon Dioxide 22 mmol/L (21-32); Chloride 106 mmol/L (98-107); Creatinine Clr Calc Pharmacy 49.2 ml/min; Est GFR (African American) 41.7 ml/min; Est GFR (Non-African American) 35.9 ml/min; Glucose 108 mg/dl (70-99(Fasting)); Potassium 4.2 mmol/L (3.5-5.1); Sodium 138 mmol/L (136-145)
[2023-03-09 04:49] LABS: Hematocrit (blood only) 25.9 % (42.0-52.0); Hemoglobin 8.7 g/dl (14.0-18.0); Mean Corpuscular Hemoglobin 31.6 pg (25.0-34.0); Mean Corpuscular Hgb Conc 33.6 g/dL (32.0-36.0); Mean Corpuscular Volume 94.2 fL (80.0-100.0); Mean Platelet Volume 11.7 fL (9.4-12.4); Platelet Count 28 K/uL (130-400); RDW Coefficient of Variation 25.2 % (11.5-14.5); RDW Standard Deviation 83.6 fL (36.4-46.3); Red Blood Count 2.75 M/uL (4.70-6.10); White Blood Count 36.78 K/ul (4.8-10.8)
[2023-03-09] MEDS: LEVOTHYROXINE SODIUM 50 MCG TABLET PO SCH (05:41)
[2023-03-09] MEDS: CEFEPIME 2,000 MG in SYRINGE 0 ML IV SCH ×2 (05:41→17:49)
[2023-03-09] MEDS: allopurinoL 100 MG TAB PO SCH ×2 (08:09→19:52)
[2023-03-09] MEDS: guaiFENesin 600 MG TABCR PO SCH ×2 (08:09→19:52)
[2023-03-09] MEDS: INSULIN ASPART PER UNIT CHARGE SC SCH ×4 (08:09→20:31)
[2023-03-09] MEDS: ATORVASTATIN 40 MG TAB PO SCH (08:09)
[2023-03-09] MEDS: ACETAMINOPHEN 325 MG TAB PO PRN ×2 (08:10→14:47)
--- NOTE | 2023-03-09 09:27 | Hospitalist Progress Note ---
Date of Service March 09, 2023 Assessment & Plan (1) Neutropenic fever: Plan: Patient is chronically neutropenic in the context of CLL with the mechanism being possibly due to "marrow crowding" and/or an element of autoimmune premature neutrophil destruction. Appreciate hospitalist aggressive and appropriate approach to this. While the acute presentation probably reflects the identified enterovirus infection, given the neutropenia it is certainly prudent and appropriate to "cover" empirically for bacterial infections awaiting final cultures and also to assess for fungal infections. Even if active fungal infection is not identified, given the extended antic ipation of neutropenia and now the further extension of antibiotics started last week, "fungal prophylaxis" with fluconazole or posaconazole becomes a consideration as does acyclovir prophylaxis. Additionally, 2 weeks out from an identified COVID19 infection there is some ongoing thought as to whether Paxlovid treatment needs to be extended beyond the standard duration. May want to consider infectious disease consultation to address these issues more completely. It is not clear that myeloid growth factor support dramatically impacts outcomes. Especially if the neutrophil count remains above 500, would reserve myeloid growth factor application for clear further deterioration especially if it involves hemodynamic compromise or for failure to show fundamental improvement in the next 48 to 72 hours. See also supportive therapy discussion under the review of his CLL per se (2) CLL (chronic lymphocytic leukemia): Plan: Long-term CLL with chronic issues of anemia, thrombocytopenia, neutropenia. 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 That threshold would be raised if there were any signs or concerns about bleeding Neutrophil transfusion is cumbersome, fraught with potential toxicity, and of questionable efficacy in a long-term setting such as this. Myeloid growth factor support as per the the neutropenic fever discussion. We will recheck his immunoglobulin levels and may want to move up the next scheduled supplementation of immunoglobulin infusion depending on those results He has been unfortunately refractory to multiple different treatments for his CLL. Await assessment from the [facility] team that saw him just last week in terms of their recommendations for long-term CLL management Plan Hospitalist team has instituted appropriate preemptive antibiotic treatment and screening for fungal infection Might consider infectious disease input with regards to institution of fungal and viral prophylaxis and as well as to any need for more extended treatment of his recently identified COVID-19 infection Transfusion support as above Myeloid growth factors would become a consideration if he shows clear deterioration especially with hemodynamic compromise or fails to show reasonable improvement over the next 48-72 hrs Immunoglobulin levels will be rechecked and may need to consider additional immunoglobulin infusion based on those results Will review in more detail later today Admission and Anticipated Discharge Date Admission Date: March 07, 2023 Subjective This is a brief/pulmonary review. Full consultation will follow Results & Data Results & Data Vital Signs (Past 12 Hours) Vital Signs Temp Pulse Resp BP Pulse Ox 03/09/23 06:00 38.6 C H 96 H 29 H 93 03/09/23 05:00 39.0 C H 101 H 31 H 95 03/09/23 04:00 38.4 C H 113 H 29 H 95 03/09/23 04:00 156/83 H 03/09/23 03:00 37.9 C H 83 20 95 03/09/23 02:00 37.4 C 86 27 H 98 03/09/23 01:00 37.3 C 76 20 97 03/09/23 00:00 37.5 C 75 21 96 03/09/23 00:00 120/61 03/08/23 23:00 37.7 C H 80 20 96 03/08/23 22:00 38.1 C H 87 21 95 PG Care Time/CCT Total # of Minutes Spent Total Time Spent with Patient: Total time spent is greater than 50% in coordination of care (as documented) at patient's floor/unit and/or counseling patient: Coding Level of Care Code None Diagnoses Neutropenic fever D70.9; R50.81 CLL (chronic lymphocytic leukemia) C91.90
[2023-03-09 10:44] LABS: Immunoglobulin A < 10.0 mg/dl (70-400); Immunoglobulin G 495.7 mg/dl (635-1741); Immunoglobulin M 118.5 mg/dl (45-281)
[2023-03-09 11:42] LABS: ALC (manual) 36.41 K/uL (1.2-3.4); ANC (manual) 0.37 K/uL (1.4-6.5); Anisocytosis Present; Lymphocytes # (manual) 36.41 K/uL (1.2-3.4); Lymphocytes % (manual) 99 %; Neutrophils # (manual) 0.37 K/uL (1.40-6.50); Neutrophils % (manual) 1 %; Polychromasia 1+
[2023-03-09] MEDS ORDERED: FUROSEMIDE 40 MG/4 ML VIAL IV ONE (13:08)
--- NOTE | 2023-03-09 13:53 | Hospitalist Progress Note ---
Date of Service March 09, 2023 Assessment & Plan (1) Pneumonia: Plan: 67yo male with CLL, neutropenia (ANC 0.7), thrombocytopenia and anemia presenting with fever, cough, SOB. patient was initially on BIPAP for increased work of breathing. BioFire panel with +Covid-19 as well as Enterovirus. Possible bacterial component as well given elevation of Procalcitonin to 1.8 Suspect that IVF given in ER causing volume overload contributing to patient's worsening respiratory state. He was given Lasix 40mg IV and placed on BiPAP. He has urinated several times. -Follow cultures sent from ER - blood and urine. So far negative. -Check sputum culture - MRSA nares negative Currently on cefepime, azithromycin. off of BiPAP continue supportive treatment (2) COVID-19: Plan: Patient diagnosed with Covid on 02/20/23. He was treated with Paxlovid. Saturations have been adequate. -Maintain isolation precautions for now - patient immunocompromised with underlying malignancy - prolonged isolation recommended 20 days -Infection control for removal of Covid isolation precautions (3) Elevated troponin: Plan: Patient with minimal elevation of troponin. 28.5 --> 31.3. No acute ischemic changes on EKG. -Trend troponin - echo showed no wall motion abnormalities or depressed EF (4) T2DM (type 2 diabetes mellitus): Plan: Patient with hypoglycemia upon arrival. Given D50 with improvement. Possibly secondary to underlying infection as well as decreased oral intake -ISS as needed (5) Chronic kidney disease: Plan: BUN and Cr mildly improved from prior. Patient follows with Nephrology. -Continue Allopurinol 200mg po BID -Avoid nephrotoxic agents -Renal dosing where needed (6) CLL (chronic lymphocytic leukemia): Plan: Patient with chronic anemia, thrombocytopenia. No active bleeding -Monitor H/H - transfuse for Hgb <7 -Maintain Neutropenic isolation precautions Pancytopenia likely secondary to CLL or chemotherapy Appreciate oncology input (7) Hypothyroidism: Plan: Chronic -Continue Synthroid (8) Neutropenic fever: Plan: covered with broad-spectrum antibiotics. Hemodynamically stable Oncology on board Consult infectious disease Considering antiviral/antifungal prophylaxis given the possibility of longstanding neutropenia (9) Enterovirus infection: Plan: continue supportive treatment (10) Acute diastolic CHF (congestive heart failure): Plan: patient appears to be volume overloaded and responded to Lasix We ordered another dose of 40 mg IV Lasix Echocardiogram showed preserved EF (11) Acute hypoxic respiratory failure: Plan: Improved today Likely multifactorial due to fluid overload, acute diastolic CHF, bacterial and viral pneumonia Continue diuretics, antibiotics and supportive treatment Plan F/E/N - Saline lock. Monitor electrolytes and replete as needed. CC diet as tolerated Ppx - SCDs (Lovenox discontinued due to thrombocytopenia and anemia) Code - Full Ordered Ativan 3 times daily as needed p.o. for anxiety. Admission and Anticipated Discharge Date Admission Date: March 07, 2023 Subjective Patient says that he feels slightly better today. Less short of breath today. Although he complains of some anxiety. His states that he gets anxious when in the hospital. The Ativan helped yesterday. Per nurse, he diuresed in response to the 2 doses of Lasix yesterday. He is still spiking fevers. Review of Systems Review of Systems: All systems reviewed & are unremarkable except as noted in Subjective Physical Exam Physical Exam: General: Awake, conversant Heart: S1, S2/regular rate and rhythm, no murmur rubs or gallops Lungs: Bilateral crackles. Normal effort. Able to complete sentences today. Abdomen: Soft/nontender/nondistended. No hepatosplenomegaly Extremities: No clubbing/cyanosis. 1+ pitting bilateral edema Behavior: Appropriate, cooperative Results & Data Results & Data Vital Signs (Past 12 Hours) Vital Signs Temp Pulse Resp BP Pulse Ox O2 Del Method O2 Flow Rate 03/09/23 13:08 103 H 03/09/23 12:00 38.0 C H 88 24 94 Nasal Cannula 3 03/09/23 12:00 128/67 03/09/23 10:00 38.8 C H 96 H 21 94 03/09/23 09:00 38.8 C H 97 H 32 H 94 03/09/23 08:00 38.6 C H 91 H 30 H 94 03/09/23 08:00 128/71 03/09/23 07:00 38.6 C H 90 25 H 95 03/09/23 08:00 Nasal Cannula 4 03/09/23 09:36 Nasal Cannula 3 03/09/23 06:00 38.6 C H 96 H 29 H 93 03/09/23 05:00 39.0 C H 101 H 31 H 95 03/09/23 04:00 38.4 C H 113 H 29 H 95 03/09/23 04:00 156/83 H 03/09/23 03:00 37.9 C H 83 20 95 03/09/23 02:00 37.4 C 86 27 H 98 Laboratory Results Abnormal lab results 03/07/23 03/08/23 03/08/23 Range/Units 17:23 16:52 17:09 WBC (4.8-10.8) K/ul RBC (4.70-6.10) M/uL Hgb (14.0-18.0) g/dl Hct (42.0-52.0) % RDW Std Deviation (36.4-46.3) fL RDW Coeff of Leonela (11.5-14.5) % Plt Count (130-400) K/uL Neutrophils # (Manual) (1.40-6.50) K/uL Total Absolute Neuts (1.4-6.5) K/uL Lymphocytes # (Manual) (1.2-3.4) K/uL Total Abs Lymphocytes (1.2-3.4) K/uL BUN (6-23) mg/dl Creatinine (0.6-1.4) mg/dl BUN/Creatinine Ratio (10-20) Glucose (70-99(Fasting)) mg/dl POC Glucose 55 L* 63 L* (70-99) mg/dl Calcium (8.6-10.3) mg/dl IgG (635-1741) mg/dl IgA (70-400) mg/dl Crossmatch See Detail 03/08/23 03/09/23 03/09/23 Range/Units 20:00 03:38 03:38 WBC 36.78 H* (4.8-10.8) K/ul RBC 2.75 L (4.70-6.10) M/uL Hgb 8.7 L (14.0-18.0) g/dl Hct 25.9 L (42.0-52.0) % RDW Std Deviation 83.6 H (36.4-46.3) fL RDW Coeff of Leonela 25.2 H (11.5-14.5) % Plt Count 28 L* (130-400) K/uL Neutrophils # (Manual) 0.37 L (1.40-6.50) K/uL Total Absolute Neuts 0.37 L* (1.4-6.5) K/uL Lymphocytes # (Manual) 36.41 H (1.2-3.4) K/uL Total Abs Lymphocytes 36.41 H (1.2-3.4) K/uL BUN 42 H (6-23) mg/dl Creatinine 1.90 H (0.6-1.4) mg/dl BUN/Creatinine Ratio 22.1 H (10-20) Glucose 108 H (70-99(Fasting)) mg/dl POC Glucose 102 H (70-99) mg/dl Calcium 7.6 L (8.6-10.3) mg/dl IgG 495.7 L (635-1741) mg/dl IgA < 10.0 L (70-400) mg/dl Crossmatch 03/09/23 Range/Units 10:04 WBC (4.8-10.8) K/ul RBC (4.70-6.10) M/uL Hgb (14.0-18.0) g/dl Hct (42.0-52.0) % RDW Std Deviation (36.4-46.3) fL RDW Coeff of Leonela (11.5-14.5) % Plt Count (130-400) K/uL Neutrophils # (Manual) (1.40-6.50) K/uL Total Absolute Neuts (1.4-6.5) K/uL Lymphocytes # (Manual) (1.2-3.4) K/uL Total Abs Lymphocytes (1.2-3.4) K/uL BUN (6-23) mg/dl Creatinine (0.6-1.4) mg/dl BUN/Creatinine Ratio (10-20) Glucose (70-99(Fasting)) mg/dl POC Glucose 181 H (70-99) mg/dl Calcium (8.6-10.3) mg/dl IgG (635-1741) mg/dl IgA (70-400) mg/dl Crossmatch PG Care Time/CCT Total # of Minutes Spent Total Time Spent with Patient: Total time spent is greater than 50% in coordination of care (as documented) at patient's floor/unit and/or counseling patient: Coding Level of Care Code 95354 SUB INP/OBS CARE 2/35MIN Diagnoses Pneumonia J18.9 COVID-19 U07.1 Elevated troponin R79.89 T2DM (type 2 diabetes mellitus) E11.9 Chronic kidney disease N18.9 CLL (chronic lymphocytic leukemia) C91.90 Hypothyroidism E03.9 Neutropenic fever D70.9; R50.81 Enterovirus infection B34.1 Acute diastolic CHF (congestive heart failure) I50.31 Acute hypoxic respiratory failure J96.01
[2023-03-09] MEDS: ONDANSETRON INJ 2 MG/ML 2 ML VIAL IV PRN (14:46)
[2023-03-09] MEDS: LORazepam 0.5 MG TAB PO PRN ×2 (14:46→19:51)
[2023-03-09] MEDS: AZITHROMYCIN 250 MG in DEXTROSE 5% 250 ML IV SCH (17:49)
[2023-03-09] MEDS: oxyCODONE HCL IR 5 MG TAB (IMMEDIATE RELEASE) PO PRN (19:51)
--- NOTE | 2023-03-09 22:44 | Consultation ---
Date of Consultation March 09, 2023 Assessment & Plan (1) COVID-19: Recent COVID-19 infection for which he received a full course of Paxlovid renally dosed because of his chronical renal insufficiency Has another potential source for his current neutropenic fever with the positive enterovirus screen and familial exposure probably to that virus. If he is not showing quick stabilization, however, may be worthwhile to speak with infectious disease exploring whether more extended Paxlovid therapy is at all worthwhile based on some early reports of insufficient treatment with standard dosing in selected patients (2) Neutropenic fever: Patient is chronically neutropenic in the context of CLL with the mechanism being possibly due to "marrow crowding" and/or an element of autoimmune premature neutrophil destruction. Appreciate hospitalist aggressive and appropriate approach to this. While the acute presentation probably reflects the identified enterovirus infection, given the neutropenia it is certainly prudent and appropriate to "cover" empirically for bacterial infections awaiting final cultures and also to assess for fungal infections. Even if active fungal infection is not identified, given the extended anticipation of neutropenia and now the further extension of antibiotics started last week, "fungal prophylaxis" with fluconazole or posaconazole becomes a consideration as does acyclovir prophylaxis. Additionally, 2 weeks out from an identified COVID19 infection, as above there is some ongoing thought as to whether Paxlovid treatment needs to be extended beyond the standard duration. May want to consider infectious disease consultation to address these issues more completely. It is not clear that myeloid growth factor support dramatically impacts outcomes in patients with established neutropenic fever. There may be some exceptions in patients with expectations for extended neutropenia as would be the case here. In general I would reserve myeloid growth factor application for clear further deterioration especially if it involves hemodynamic compromise or for failure to show fundamental improvement in the next 48 to 72 hours. Noting that his ANC is fallen below 500, however, I think we may need to closely reassess and a short course of G-CSF may be worthwhile See also supportive therapy discussion under the review of his CLL per se (3) CLL (chronic lymphocytic leukemia): Long-term CLL with chronic issues of anemia, thrombocytopenia, neutropenia. 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 That threshold would be raised if there were any signs or concerns about bleeding Neutrophil transfusion is cumbersome, fraught with potential toxicity, and of questionable efficacy in a long-term setting such as this. Myeloid growth factor support as per the the neutropenic fever discussion. He has been unfortunately refractory to multiple different treatments for his CLL. Await assessment from the [facility] team that saw him just last week in terms of their recommendations for long-term CLL management. We will need to wait until he is stabilized with regards to current infectious issues, however, before we can hope to start that as it would likely have short-term issues of exacerbation of immunosuppression (4) Chronic kidney disease: Has been followed by Dr. Yoder. Current creatinine is actually somewhat improved from his outpatient current level (5) Immunoglobulin deficiency, acquired: Recheck immunoglobulin levels show that they are low. It would be worthwhile to give him an immunoglobulin infusion of 300 mg/kg or 35 g overall Plan Transfusion support as above Myeloid growth factors do not generally impact on established neutropenic fever though with the declining ANC numbers and expectation for prolonged neutropenia, there may be some consideration for short course of GCSF May be worthwhile to get infectious disease input with regards to the role for prophylaxis of fungal and viral infections and as well whether there is any role for extended COVID19 therapy With low immunoglobulin levels would suggest a one-time infusion of intravenous immunoglobulin 35 g If his situation is not quickly stabilizing, may need to consider transfer to [facility] where Dr. Delcan Heaton, infectious disease, and the overall hematology team are even more familiar with his case and may have more focused capability for dealing with the challenges of refractory CLL/SLL with chronic neutropenia History of Present Illness Reason for Consultation: Fever in a patient with longstanding CLL and chronic neutropenia Attending Physician: Elena Nino MD History of Present Illness Please note that this is a consultation constructed purely from review of the electronic database. I am working remotely and unable to speak directly with the patient or examine him at this time though I am well familiar with his case and has been actively involved in his care in recent months. I reviewed both the records from the [facility] and the current admission records which seem to be an accurate source of relevant information but I am completely reliant on that for my conclusions and perspectives. If there are urgent concerns regarding the need for more direct [id number] review, you should consider transferring the patient to [facility] where Dr. Declan Heaton has been the primary director of his care. If he remains hospitalized at [facility], I will be happy to follow up with the patient in a [id number] meeting on Friday when I am back on the campus. The evaluation is consultative in nature and all patient care and treatment decisions can either be accepted or rejected by the patient's primary hospital- based treating physician using their own independent medical judgment for the patient. Patient has a history of CLL which with more recent widespread adenopathy may be better understood his CLL/SLL dating back to 2013. He has had multiple treatments over the years including rituximab/idealalisib, venetoclax, RCHOP and acalabrutinib which should be continued for quite some time but was held as of 01/07/2023 with onset of an abdominal hematoma. Primary management has been with [facility] by Dr. Declan Heaton and recent determination have been for him to see a team particularly focused on CLL/SLL at the [facility]. Treatment was being held pending their recommendation. He has had longstanding issues with chronic neutropenia in the context of his C LL/SLL and recurring infections elusive and modulated somewhat by ongoing immunoglobulin infusion most recently on 02/26/2023 Recent assessments and events include 12/25/2022 PET/CT 1. The majority of the bilateral FDG avid cervical lymph nodes have increased in size from the prior PET/CT. 2. Bilateral axillary lymphadenopathy is similar in size compared to the recent chest CT. These have increased in size and FDG uptake compared to the prior PET/CT. 3. The mediastinal lymphadenopathy has increased in size from the prior PET/CT. However, the FDG uptake within these lymph nodes on the prior PET/CT have improved/resolved. 4. Increase in size in the FDG avid lymphadenopathy within the abdomen/pelvis compared to the recent abdomen and pelvis CT. This is consistent with progressive disease. 5. Additional findings as described above. 01/07/2023 presented to [facility] ED and transferred to [facility] for acute abdominal pain/large hematoma. Hospitalized there until 01/11/2023 requiring IV hydromorphone transition to p.o. oxycodone for pain and additional red cell transfusion 01/07/[address] [facility] [address] abd/pelvis 1. There is a large right intrapelvic extraperitoneal hemorrhage as above. There is surrounding lymphadenopathy, and the hemorrhage is new from 12/25/2022. The hematoma causes significant mass effect on the bladder and the right iliac vessels. 2. No intraperitoneal hemorrhage is identified. 3. Bulky lymphadenopathy is seen throughout the abdomen and pelvis. This has progressed as compared to 12/25/2022. 4. Mild splenomegaly. 5. A large parastomal hernia contains nonobstructed bowel loops. 6. Additional findings as above. 01/08/2023 image guided biopsy of retroperitoneal lymph nodes at [facility] with 01/09/2023 repeat marrow biopsy Progression but not transformation Ki-67 47% Marrow 60% CLL Hgb 8 post PRBCs Readmitted [facility] 01/22/2023 Admitted to [facility] 01/30/2023 - 02/02/2023 for ANJUM/anemia/possible pneumonitis Admitted [facility] 02/04-10/2022 with hyperkalemia/hyperglycemia He did test positive for COVID19 on 02/17/2023 and was treated with renally dosed Paxlovid He traveled to [facility] to see the [facility] team on 03/05/2023 apparently while there developed fever and was seen in the emergency department with some pulmonary infiltrates on chest x-ray. He received a dose of ceftriaxone and azithromycin in the emergency department and was discharged on oral antibiotics He apparently was exposed to a family member with an upper respiratory infection in his admitted now with worsening respiratory status and fever Allergies Allergy/AdvReac Type Severity Reaction Status Date / Time allopurinol Allergy Unknown Rash Verified 03/07/23 08:07 ibrutinib [From Imbruvica] Allergy Unknown LOOKED Verified 03/07/23 19:23 LIKE A LEOPARD SPOTTED ALL OVER NSAIDS (Non-Steroidal AdvReac Unknown DUE TO Verified 03/07/23 19:23 Anti-Inflamma DECREASED KIDNEY FUNCTION Home Medications Medication Instructions Recorded Confirmed Type hydrocortisone 2.5 % topical cream 1 applic topical BID PRN Eczema 07/27/19 03/07/23 History acetaminophen 325 mg capsule 650 mg PO Q6H PRN Fever Or Pain 12/10/19 03/07/23 History (Tylenol) sildenafil 25 mg tablet 25 mg PO DAILY PRN sexual activity 06/19/21 03/07/23 Rx #20 tabs blood-glucose meter #1 ea 11/20/21 03/07/23 Rx lancets (Accu-Chek Softclix #100 ea 11/20/21 03/07/23 Rx Lancets) blood sugar diagnostic #300 ea 11/23/21 03/07/23 Rx atorvastatin 40 mg tablet 40 mg PO QAM #90 tabs 02/05/22 03/07/23 Rx glimepiride 2 mg tablet 4 mg PO QAM #180 tabs 02/05/22 03/07/23 Rx multivitamin 1 tab PO DAILY 02/21/22 03/07/23 History acalabrutinib 100 mg capsule 0 mg PO DAILY 06/20/22 03/07/23 History (Calquence) levothyroxine 50 mcg tablet 50 mcg PO QAM #30 tabs 11/15/22 03/07/23 Rx oxycodone 5 mg tablet 5 mg PO Q4H PRN Pain 01/30/23 03/07/23 History allopurinol 200 mg tablet 200 mg PO BID #180 tabs 02/28/23 03/07/23 Rx amoxicillin 875 mg-potassium 1 tab PO Q12H 03/07/23 03/07/23 History clavulanate 125 mg tablet magnesium 200 mg tablet 400 mg PO DAILY 03/07/23 03/07/23 History Patient History Medical History Anemia Bronchiolitis hx lingering cough illness 05/23 - current abx for/cough improving Cataract, left eye Chronic kidney disease STAGE III. Baseline Cr 1.6-1.8. Cirrhosis (01/19/19) Radiographic evidence on CT AP at [facility] during hospitalization - "Nodularity of the hepatic surface contour indicating early change of cirrhosis." CLL (chronic lymphocytic leukemia) (~2013) Diabetes mellitus, type 2 History of anesthesia problem per "feels he's probably a difficult intubation" Hyperlipidemia Hypertension Hypomagnesemia Hypothyroidism Lower extremity edema Lymphadenopathy Paronychia Port-A-Cath in place POWER/LEFT CHEST Presence of colostomy IN PROCESS OF COLOSTOMY REVERSAL/REASON FOR UPCOMING PROCEDURE. Stroke 2015--SPEECH IS SLIGHTLY SLOWER "word finding issue", slight facial droop when tired Thrombocytopenia Tinnitus of both ears Tumor lysis syndrome Hospitalized 07/27/19 - 07/30/19 - Improved with IVF and Rasburicase 6mg IV x 1. Surgical History H/O right cataract extraction History of bowel resection History of tooth extraction WISDOM TEETH History of vascular access device L CHEST/POWER S/P biopsy (~2019) Bone marrow biopsy x 2 S/P lymph node biopsy (11/11/19) Incisional Biopsy Left Axillary Node Dr. Chao 11/11/19 Status post excisional biopsy (06/21/22) Excisional biopsy left submandibular node (Left) - Harvey Chao MD, FACS Family History Father , 92yo TIA (transient ischemic attack) Diabetes Hypertension Mother , in 80s Endometrial cancer Lupus Heart valve replaced Diabetes Brother Bladder cancer Diabetes Hypertension Sister Diabetes Daughter No problems noted. Daughter No problems noted. 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 This is on 4 L nasal cannula, pulse ox is 96% This is an electronic consult and I am not able to examine the patient directly Review of the hospital's note indicates that the patient is awake, alert and and seems to be speaking more easily today than previously. There are still crackles on lung examination but he is apparently not markedly tachypneic or using accessory muscles. Cardiac and abdominal examinations are apparently stable. Neurological exam is apparently stable Results & Data Vital Signs (Past 12 Hours) Vital Signs Temp Pulse Resp BP Pulse Ox O2 Del Method O2 Flow Rate 03/09/23 22:25 112 H 28 H 96 03/09/23 20:00 Nasal Cannula 4 03/09/23 18:00 38.9 C H 101 H 26 H 92 03/09/23 16:00 38.5 C H 88 25 H 95 03/09/23 16:00 124/68 03/09/23 14:00 38.1 C H 92 H 28 H 94 03/09/23 13:08 103 H 03/09/23 12:00 38.0 C H 88 24 94 Nasal Cannula 3 03/09/23 12:00 128/67 FiO2 03/09/23 22:25 40 03/09/23 20:00 03/09/23 18:00 03/09/23 16:00 03/09/23 16:00 03/09/23 14:00 03/09/23 13:08 03/09/23 12:00 03/09/23 12:00 PG Care Time/CCT Total # of Minutes Spent Total Time Spent with Patient: Total time spent is greater than 50% in coordination of care (as documented) at patient's floor/unit and/or counseling patient: Coding Level of Care Code 82415 IN/OBS CONSULT LVL 4,60M Diagnoses COVID-19 U07.1 Neutropenic fever D70.9; R50.81 CLL (chronic lymphocytic leukemia) C91.90 Chronic kidney disease N18.9 Immunoglobulin deficiency, acquired D80.9
[2023-03-10] MEDS: ACETAMINOPHEN 325 MG TAB PO PRN ×3 (01:15→15:29)
[2023-03-10 04:14] LABS: Hemoglobin 8.1 g/dl (14.0-18.0); Mean Corpuscular Hemoglobin 31.3 pg (25.0-34.0); Mean Corpuscular Hgb Conc 32.4 g/dL (32.0-36.0); Mean Corpuscular Volume 96.5 fL (80.0-100.0); Mean Platelet Volume 11.8 fL (9.4-12.4); Platelet Count 20 K/uL (130-400); RDW Coefficient of Variation 24.5 % (11.5-14.5); RDW Standard Deviation 83.5 fL (36.4-46.3); Red Blood Count 2.59 M/uL (4.70-6.10); White Blood Count 28.02 K/ul (4.8-10.8)
[2023-03-10 04:27] LABS: BUN Creatinine Ratio 20.3 (10-20); Calcium 7.7 mg/dl (8.6-10.3); Creatinine Clr Calc Pharmacy 51.3 ml/min; Est GFR (African American) 43.9 ml/min; Est GFR (Non-African American) 37.9 ml/min; Potassium 4.1 mmol/L (3.5-5.1)
[2023-03-10] MEDS: CEFEPIME 2,000 MG in SYRINGE 0 ML IV SCH ×2 (06:23→17:33)
[2023-03-10] MEDS: LEVOTHYROXINE SODIUM 50 MCG TABLET PO SCH (06:23)
[2023-03-10] MEDS: guaiFENesin 600 MG TABCR PO SCH ×2 (07:59→20:25)
[2023-03-10] MEDS: allopurinoL 100 MG TAB PO SCH ×2 (08:00→20:25)
[2023-03-10] MEDS: ATORVASTATIN 40 MG TAB PO SCH (08:00)
[2023-03-10] MEDS: INSULIN ASPART PER UNIT CHARGE SC SCH ×4 (08:00→20:26)
[2023-03-10] MEDS: ONDANSETRON INJ 2 MG/ML 2 ML VIAL IV PRN (11:16)
[2023-03-10] MEDS: LORazepam 0.5 MG TAB PO PRN ×2 (11:16→17:33)
--- NOTE | 2023-03-10 12:40 | Infectious Disease Consult ---
Date of Consultation March 10, 2023 Assessment & Plan (1) Acute hypoxic respiratory failure: (2) Neutropenic fever: (3) Enterovirus infection: (4) Rhinovirus infection: (5) Immunoglobulin deficiency, acquired: Plan This is a 67-year-old male with past medical history of CLL with pancytopenia, recent spontaneous intrapelvic hemorrhage presents with worsening cough, fever and sob .He was admitted to [facility] from 01/30-02/02 for pneumonia and michelle and treated with Augmentin and dexamethasone for increasing bulky adenopathy His is at bedside and provides additional history. For the last 1 month he has been more fatigue with increased BL LE swelling . His chemotherapy has been on hold after diagnosed with spontaneous intrahepatic hematoma in 12/2022. He was diagnosed with Covid 19 on 02/20 and completed 5 days of Paxlovid. He denies requiring supplemental o2 or much respiratory symptoms at the time His and other family member werr also positive. On 03/05 he traveled to [place] to see a new oncologist to discuss new therapies. While in office, he de veloped fever, and sob. He was sent the the Ed there for Cxr which showed pna. He received 1 dose Ceftriaxone and azithromycin and was discharged on Augmentin and azithromycin ( he and wanted to come back to [place]) . His symptoms worsened so he presented to [facility]. . In the Ed he had increased work of breathing and tachypnea, He was initially on bipap. Bio fire + covid, enterovirus. Procalcitonin 1.8. Cxr shows patchy bibasilar and left midlung airspace opacities and bilateral hilar lymphadenopathy progressed since 01/07/23. He is febrile and neutropenic. He was started on IV vanco/cefepime and azithromycin. Mrsa nares negative, so vancomycin discontinued. Bc and UC are sterile to date. ID consulted for neutropenic fever. On exam he is uncomfortable and short of breath. He denies any travel except to [place] last week for onc visit. He endorses LE swelling and cough. He denies chest pain, rash , LARA, pain at port site, rashes. He has anxiety related to his disease process and needing hospitalization He remains febrile with Tm, 39.1 WBc 28 k, plts 20k, ANC 0.37 Micro Bc 10/6 NGTD UC 10/6 sterile biofire +10/6 + covid 19, +enterovirus ( also + 11/2022) mrsa nares 03/08 negative Abx Vanco 10/6 Cefepime 10/-ongoing Azith 10/- ongoing # CLL #Acute hypoxic respiratory failure # Multifocal Pneumonia #Covid on 02/20- sp paxlovid. out of window for other covid therapies #Neutropenic fever #Repeat Enterovirus positivity on bifire ( likely from viral shedding since immunocompromised ) #Port in place He was diagnosed with Covid 19 , 2 weeks ago and is out the window for addition Covid therapie. His test remains positive and is expected as he is immunocompromised. Additionally, his biofire is again positive for enterovirus.THis is likely secondary to viral shedding in an immunocompromised pt. It could also represents infection. There is no anti viral treatment for enterovirus. I think his current process is most likely secondary to a sup erimposed Bacterial infection post recent Covid 19 infection. He is neutropenic and febrile, so coverage for Pseudomonas is recommended. He is currently on Cefepime which should cover,if no Resistance. Mrsa coverage was started with iV vanco but discontinued as MRSA pcr is negative. He has no prior history of MDRO or fungal infections On xray there is evidence of multifocal pneumonia, there is also progression of bilateral hilar enlargement/? lymphadenopathy from 01/07/23 studies which may represent disease progression in setting of leukemia or reactive 2/2 infectious process. Recommendation. Continue cefepime/azithromycin Obtain CT to further eval lung parenchyma Repeat BC ordered Fungal cx ordered Sputum cx, if can produce Urine legionella ag ordered Repeat procal ordered. Thank you for this consultation. ID will continue to follow. Jaime Baeza MD, MPH Infectious Disease [facility], [facility] Call [phone] with questions Consultation Information Consultation was provided via telemedicine using two-way real-time interactive telecommunication between the patient and the telemedicine provider. For the duration of the visit, the provider was performing the assessment from a different facility than the patient. This includesuse of bluetooth stethoscope forauscultationperformed by the telepresenter that the telemedicine provider can hear if described in the physical exam. [employer] contact information: Please call [facility] Call Center [phone]. (Phone Number For Physician Use Only) After establishing a telemedicine visit, patient was: Patient was verified with two unique identifiers and Patient/authorized rep acknowledged consent and understanding Time Spent with Patient: Initial => 75 min History of Present Illness Reason for Consultation: Neutropenic fever Requesting Physician: Elena Nino MD Attending Physician: Elena Nino MD History of Present Illness This is a 67-year-old male with past medical history of CLL with pancytopenia, recent spontaneous intrapelvic hemorrhage presents with worsening cough, fever and sob .He was admitted to [facility] from 01/30-02/02 for pneumonia and michelle and treated with Augmentin and dexamethasone for increasing bulky adenopathy His is at bedside and provides additional history. For the last 1 month he has been more fatigue with increased BL LE swelling . His chemotherapy has been on hold after diagnosed with spontaneous intrahepatic hematoma in 12/2022. He was diagnosed with Covid 19 on 02/20 and completed 5 days of Paxlovid. He denies requiring supplemental o2 or much respiratory symptoms at the time His and other family member werr also positive. On 03/05 he traveled to [place] to see a new oncologist to discuss new therapies. While in office, he developed fever, and sob. He was sent the the Ed there for Cxr which showed pna. He received 1 dose Ceftriaxone and azithromycin and was discharged on Augmentin and azithromycin ( he and wanted to come back to [place]) . His symptoms worsened so he presented to [facility]. . In the Ed he had increased work of breathing and tachypnea, He was initially on bipap. Bio fire + covid, enterovirus. Procalcitonin 1.8. Cxr shows patchy bibasilar and left midlung airspace opacities and bilateral hilar lymphadenopathy progressed since 01/07/23. He is febrile and neutropenic. He was started on IV vanco/cefepime and azithromycin. Mrsa nares negative, so vancomycin discontinued. Bc and UC are sterile to date. ID consulted for neutropenic fever. On exam he is uncomfortable and short of breath. He denies any travel except to [place] last week for onc visit. He endorses LE swelling and cough. He denies chest pain, rash , LARA, pain at port site, rashes. He has anxiety related to his disease process and needing hospitalization He remains febrile with Tm, 39.1 WBc 28 k, plts 20k, ANC 0.37 , Allergies Allergy/AdvReac Type Severity Reaction Status Date / Time allopurinol Allergy Unknown Rash Verified 03/07/23 08:07 ibrutinib [From Imbruvica] Allergy Unknown LOOKED Verified 03/07/23 19:23 LIKE A LEOPARD SPOTTED ALL OVER NSAIDS (Non-Steroidal AdvReac Unknown DUE TO Verified 03/07/23 19:23 Anti-Inflamma DECREASED KIDNEY FUNCTION Home Medications Medication Instructions Recorded Confirmed Type hydrocortisone 2.5 % topical cream 1 applic topical BID PRN Eczema 07/27/19 03/07/23 History acetaminophen 325 mg capsule 650 mg PO Q6H PRN Fever Or Pain 12/10/19 03/07/23 History (Tylenol) sildenafil 25 mg tablet 25 mg PO DAILY PRN sexual activity 06/19/21 03/07/23 Rx #20 tabs blood-glucose meter #1 ea 11/20/21 03/07/23 Rx lancets (Accu-Chek Softclix #100 ea 11/20/21 03/07/23 Rx Lancets) blood sugar diagnostic #300 ea 11/23/21 03/07/23 Rx atorvastatin 40 mg tablet 40 mg PO QAM #90 tabs 02/05/22 03/07/23 Rx glimepiride 2 mg tablet 4 mg PO QAM #180 tabs 02/05/22 03/07/23 Rx multivitamin 1 tab PO DAILY 02/21/22 03/07/23 History acalabrutinib 100 mg capsule 0 mg PO DAILY 06/20/22 03/07/23 History (Calquence) levothyroxine 50 mcg tablet 50 mcg PO QAM #30 tabs 11/15/22 03/07/23 Rx oxycodone 5 mg tablet 5 mg PO Q4H PRN Pain 01/30/23 03/07/23 History allopurinol 200 mg tablet 200 mg PO BID #180 tabs 02/28/23 03/07/23 Rx amoxicillin 875 mg-potassium 1 tab PO Q12H 03/07/23 03/07/23 History clavulanate 125 mg tablet magnesium 200 mg tablet 400 mg PO DAILY 03/07/23 03/07/23 History Patient History Medical History Anemia Bronchiolitis hx lingering cough illness 12/22 - current abx for/cough improving Cataract, left eye Chronic kidney disease STAGE III. Baseline Cr 1.6-1.8. Cirrhosis (01/19/19) Radiographic evidence on CT AP at [facility] during hospitalization - "Nodularity of the hepatic surface contour indicating early change of cirrhosis." CLL (chronic lymphocytic leukemia) (~2013) Diabetes mellitus, type 2 History of anesthesia problem per "feels he's probably a difficult intubation" Hyperlipidemia Hypertension Hypomagnesemia Hypothyroidism Lower extremity edema Lymphadenopathy Paronychia Port-A-Cath in place POWER/LEFT CHEST Presence of colostomy IN PROCESS OF COLOSTOMY REVERSAL/REASON FOR UPCOMING PROCEDURE. Stroke 2015--SPEECH IS SLIGHTLY SLOWER "word finding issue", slight facial droop when tired Thrombocytopenia Tinnitus of both ears Tumor lysis syndrome Hospitalized 07/27/19 - 07/30/19 - Improved with IVF and Rasburicase 6mg IV x 1. Surgical History H/O right cataract extraction History of bowel resection History of tooth extraction WISDOM TEETH History of vascular access device L CHEST/POWER S/P biopsy (~2019) Bone marrow biopsy x 2 S/P lymph node biopsy (11/11/19) Incisional Biopsy Left Axillary Node Dr. Chao 11/11/19 Status post excisional biopsy (06/21/22) Excisional biopsy left submandibular node (Left) - Harvey Chao MD, FACS Family History Father , 92yo TIA (transient ischemic attack) Diabetes Hypertension Mother , in 80s Endometrial cancer Lupus Heart valve replaced Diabetes Brother Bladder cancer Diabetes Hypertension Sister Diabetes Daughter No problems noted. Daughter No problems noted. 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 Pertinent positives as per Hpi. Physical Exam Physical Exam: Gen - in respiratory distress, on oximeter Neck- supple lung - wheezing, Left chest port ( not tender, not red) Abd- soft L ostomy Ext - BL LE edema Skin - right LE bruising Neuro- anxious Results & Data Vital Signs (Past 12 Hours) Vital Signs Temp Pulse Resp BP Pulse Ox O2 Del Method O2 Flow Rate 03/10/23 11:00 38.2 C H 94 H 21 93 03/10/23 10:00 37.8 C H 91 H 26 H 92 03/10/23 08:00 37.2 C 84 19 96 03/10/23 08:00 131/68 03/10/23 07:00 36.9 C 88 22 96 03/10/23 08:00 Nasal Cannula 3 03/10/23 08:42 Nasal Cannula 3 03/10/23 06:00 36.8 C 75 31 H 94 03/10/23 05:00 37.0 C 83 22 94 03/10/23 04:00 37.3 C 87 22 91 03/10/23 04:00 129/72 03/10/23 03:00 37.9 C H 93 H 18 93 03/10/23 02:00 38.8 C H 104 H 26 H 94 03/10/23 01:00 39.1 C H 103 H 22 87 L Laboratory Results Laboratory Results - last 48 hr 03/08/23 03/09/23 03/09/23 20:00 03:38 03:38 WBC 36.78 H* RBC 2.75 L Hgb 8.7 L Hct 25.9 L MCV 94.2 D MCH 31.6 MCHC 33.6 RDW Std Deviation 83.6 H RDW Coeff of Leonela 25.2 H Plt Count 28 L* MPV 11.7 Neutrophils % (Manual) 1 Lymphocytes % (Manual) 99 Neutrophils # (Manual) 0.37 L Total Absolute Neuts 0.37 L* Lymphocytes # (Manual) 36.41 H Total Abs Lymphocytes 36.41 H Polychromasia 1+ Anisocytosis Present Sodium 138 Potassium 4.2 Chloride 106 Carbon Dioxide 22 Anion Gap 10 BUN 42 H Creatinine 1.90 H Est Cr Clr Drug Dosing 49.2 Est GFR ( Amer) 41.7 Est GFR (Non-Af Amer) 35.9 BUN/Creatinine Ratio 22.1 H Glucose 108 H POC Glucose 102 H Calcium 7.6 L Procalcitonin IgG 495.7 L IgA < 10.0 L IgM 118.5 03/09/23 03/09/23 03/09/23 10:04 14:55 20:01 WBC RBC Hgb Hct MCV MCH MCHC RDW Std Deviation RDW Coeff of Leonela Plt Count MPV Neutrophils % (Manual) Lymphocytes % (Manual) Neutrophils # (Manual) Total Absolute Neuts Lymphocytes # (Manual) Total Abs Lymphocytes Polychromasia Anisocytosis Sodium Potassium Chloride Carbon Dioxide Anion Gap BUN Creatinine Est Cr Clr Drug Dosing Est GFR ( Amer) Est GFR (Non-Af Amer) BUN/Creatinine Ratio Glucose POC Glucose 181 H 180 H 287 H Calcium Procalcitonin IgG IgA IgM 03/09/23 03/09/23 03/10/23 20:03 20:10 03:53 WBC 28.02 H RBC 2.59 L Hgb 8.1 L Hct 25.0 L MCV 96.5 MCH 31.3 MCHC 32.4 RDW Std Deviation 83.5 H RDW Coeff of Leonela 24.5 H Plt Count 20 L* MPV 11.8 Neutrophils % (Manual) Lymphocytes % (Manual) Neutrophils # (Manual) Total Absolute Neuts Lymphocytes # (Manual) Total Abs Lymphocytes Polychromasia Anisocytosis Sodium Potassium Chloride Carbon Dioxide Anion Gap BUN Creatinine Est Cr Clr Drug Dosing Est GFR ( Amer) Est GFR (Non-Af Amer) BUN/Creatinine Ratio Glucose POC Glucose 300 H 297 H Calcium Procalcitonin IgG IgA IgM 03/10/23 03/10/23 03/10/23 03:53 08:14 11:21 WBC RBC Hgb Hct MCV MCH MCHC RDW Std Deviation RDW Coeff of Leonela Plt Count MPV Neutrophils % (Manual) Lymphocytes % (Manual) Neutrophils # (Manual) Total Absolute Neuts Lymphocytes # (Manual) Total Abs Lymphocytes Polychromasia Anisocytosis Sodium 134 L Potassium 4.1 Chloride 104 Carbon Dioxide 22 Anion Gap 8 BUN 37 H Creatinine 1.82 H Est Cr Clr Drug Dosing 51.3 Est GFR ( Amer) 43.9 Est GFR (Non-Af Amer) 37.9 BUN/Creatinine Ratio 20.3 H Glucose 262 H POC Glucose 219 H 167 H Calcium 7.7 L Procalcitonin IgG IgA IgM 03/10/23 03/10/23 13:08 15:37 WBC RBC Hgb Hct MCV MCH MCHC RDW Std Deviation RDW Coeff of Leonela Plt Count MPV Neutrophils % (Manual) Lymphocytes % (Manual) Neutrophils # (Manual) Total Absolute Neuts Lymphocytes # (Manual) Total Abs Lymphocytes Polychromasia Anisocytosis Sodium Potassium Chloride Carbon Dioxide Anion Gap BUN Creatinine Est Cr Clr Drug Dosing Est GFR ( Amer) Est GFR (Non-Af Amer) BUN/Creatinine Ratio Glucose POC Glucose 120 H Calcium Procalcitonin 5.22 H IgG IgA IgM Diagnostic Findings Microbiology 03/10/23 13:08 Blood Fungal Smear - Final 03/07/23 17:23 Blood Aerobic Blood Culture - Preliminary No growth in Aerobic bottle after 48 hours. 03/07/23 17:23 Blood Anaerobic Blood Culture - Preliminary No growth in Anaerobic bottle after 48 hours. 03/07/23 19:05 Urine,Clean Catch Urine Culture - Final No growth - less than 1,000 colonies/mL. Chest X-Ray 03/10/23 15:32 XR chest 1V portable HISTORY: 67 years-old Male hypoxic resp failure acute hypoxia COMPARISON: Chest radiograph studies 03/07/2023 and 01/07/2023, PET/CT 12/25/2022. TECHNIQUE: AP view of the chest FINDINGS: Cardiac silhouette is enlarged. Left subclavian [id number] catheter. Bilateral hilar prominence redemonstrated. There are patchy ill-defined bibasilar and left midlung predominant opacities. Mild right hemidiaphragm elevation. No pneumothorax or large pleural effusion. Degenerative changes of the shoulders and spine. IMPRESSION: 1. Progressive airspace opacities, most pronounced in the left midlung and right lung base suspicious for multifocal pneumonia. 2. Bilateral hilar enlargement is again noted which likely represents underlying lymphadenopathy and may be related to disease progression in this patient with known leukemia. Findings are progressed compared to 01/07/2023. Follow-up with oncology as needed. ACT 112: Negative or not required by law. The above report was generated using voice recognition software. It may contain grammatical, syntax or spelling errors. Electronically signed by: Benedict Anderson M.D. 03/10/2023 4:41 PM
[2023-03-10] MEDS ORDERED: VANCOMYCIN CONSULT ACTIVE PRN (12:57)
[2023-03-10] MEDS ORDERED: VANCOMYCIN HCL 1,750 MG in SODIUM CHLORIDE 0.9% 500 ML IV SCH (13:00)
--- NOTE | 2023-03-10 13:45 | Hospitalist Progress Note ---
Date of Service March 10, 2023 Assessment & Plan (1) Pneumonia: Plan: 67yo male with CLL, neutropenia (ANC 0.7), thrombocytopenia and anemia presenting with fever, cough, SOB. patient was initially on BIPAP for increased work of breathing. BioFire panel with +Covid-19 as well as Enterovirus. Possible bacterial component as well given elevation of Procalcitonin to 1.8 Immunocompromised host with neutropenic fever Started on broad-spectrum antibiotics. Currently on cefepime and azithromycin. MRSA Swab negative Infectious disease on board Recommended CT chest. I ordered it. Agreed with antibiotics Currently on 3 to 4 L of oxygen, off of BiPAP. Does not use oxygen at home. Fever improving. Was fever free today for some time. ID ordered urine Legionella, procalcitonin, sputum culture ID ordered repeat blood culture and fungal culture. (2) Neutropenic fever: Plan: covered with broad-spectrum antibiotics. Hemodynamically stable Oncology on board Consult infectious disease (3) COVID-19: Plan: Patient diagnosed with Covid on 02/20/23. He was treated with Paxlovid. -Maintain isolation precautions for now - patient immunocompromised with underlying malignancy - prolonged isolation recommended 20 days -Infection control for removal of Covid isolation precautions (4) Chronic kidney disease: Plan: BUN and Cr Stable. Patient follows with Nephrology. -Continue Allopurinol 200mg po BID -Avoid nephrotoxic agents -Renal dosing where needed (5) CLL (chronic lymphocytic leukemia): Plan: Patient with chronic anemia, thrombocytopenia. No active bleeding -Monitor H/H - transfuse for Hgb <7 -Maintain Neutropenic isolation precautions Pancytopenia likely secondary to CLL or chemotherapy Appreciate oncology input Oncologist considering IVIG (6) Enterovirus infection: Plan: continue supportive treatment (7) Acute diastolic CHF (congestive heart failure): Plan: patient appeared to be volume overloaded and responded to A few doses of Lasix during this hospital stay Echocardiogram showed preserved EF (8) Acute hypoxic respiratory failure: Plan: Improved today Likely multifactorial due to fluid overload, acute diastolic CHF, bacterial and viral pneumonia Continue diuretics as needed, antibiotics and supportive treatment (9) T2DM (type 2 diabetes mellitus): Plan: Patient with hypoglycemia upon arrival. Given D50 with improvement. Possibly secondary to underlying infection as well as decreased oral intake -ISS as needed (10) Elevated troponin: Plan: Patient with minimal elevation of troponin. 28.5 --> 31.3. No acute ischemic changes on EKG. -Trend troponin - echo showed no wall motion abnormalities or depressed EF (11) Hypothyroidism: Plan: Chronic -Continue Synthroid Plan F/E/N - Saline lock. Monitor electrolytes and replete as needed. CC diet as tolerated Ppx - SCDs (Lovenox discontinued due to thrombocytopenia and anemia) Code - Full Ordered Ativan 3 times daily as needed p.o. for anxiety. Admission and Anticipated Discharge Date Admission Date: March 07, 2023 Subjective Patient says that he is very tired. Review of Systems Review of Systems: All systems reviewed & are unremarkable except as noted in Subjective Physical Exam Physical Exam: General: Awake, conversant Heart: S1, S2/regular rate and rhythm, no murmur rubs or gallops Lungs: Bilateral crackles. Normal effort. Able to complete sentences today. Abdomen: Soft/nontender/nondistended. No hepatosplenomegaly Extremities: No clubbing/cyanosis. 1+ pitting bilateral edema Behavior: Appropriate, cooperative Results & Data Results & Data Vital Signs (Past 12 Hours) Vital Signs Temp Pulse Resp BP Pulse Ox O2 Del Method O2 Flow Rate 03/10/23 11:00 38.2 C H 94 H 21 93 03/10/23 10:00 37.8 C H 91 H 26 H 92 03/10/23 08:00 37.2 C 84 19 96 03/10/23 08:00 131/68 03/10/23 07:00 36.9 C 88 22 96 03/10/23 08:00 Nasal Cannula 3 03/10/23 08:42 Nasal Cannula 3 03/10/23 06:00 36.8 C 75 31 H 94 03/10/23 05:00 37.0 C 83 22 94 03/10/23 04:00 37.3 C 87 22 91 03/10/23 04:00 129/72 03/10/23 03:00 37.9 C H 93 H 18 93 03/10/23 02:00 38.8 C H 104 H 26 H 94 Laboratory Results Abnormal lab results 03/09/23 03/09/23 03/09/23 Range/Units 14:55 20:01 20:03 WBC (4.8-10.8) K/ul RBC (4.70-6.10) M/uL Hgb (14.0-18.0) g/dl Hct (42.0-52.0) % RDW Std Deviation (36.4-46.3) fL RDW Coeff of Leonela (11.5-14.5) % Plt Count (130-400) K/uL Sodium (136-145) mmol/L BUN (6-23) mg/dl Creatinine (0.6-1.4) mg/dl BUN/Creatinine Ratio (10-20) Glucose (70-99(Fasting)) mg/dl POC Glucose 180 H 287 H 300 H (70-99) mg/dl Calcium (8.6-10.3) mg/dl 03/09/23 03/10/23 03/10/23 Range/Units 20:10 03:53 03:53 WBC 28.02 H (4.8-10.8) K/ul RBC 2.59 L (4.70-6.10) M/uL Hgb 8.1 L (14.0-18.0) g/dl Hct 25.0 L (42.0-52.0) % RDW Std Deviation 83.5 H (36.4-46.3) fL RDW Coeff of Leonela 24.5 H (11.5-14.5) % Plt Count 20 L* (130-400) K/uL Sodium 134 L (136-145) mmol/L BUN 37 H (6-23) mg/dl Creatinine 1.82 H (0.6-1.4) mg/dl BUN/Creatinine Ratio 20.3 H (10-20) Glucose 262 H (70-99(Fasting)) mg/dl POC Glucose 297 H (70-99) mg/dl Calcium 7.7 L (8.6-10.3) mg/dl 03/10/23 03/10/23 Range/Units 08:14 11:21 WBC (4.8-10.8) K/ul RBC (4.70-6.10) M/uL Hgb (14.0-18.0) g/dl Hct (42.0-52.0) % RDW Std Deviation (36.4-46.3) fL RDW Coeff of Leonela (11.5-14.5) % Plt Count (130-400) K/uL Sodium (136-145) mmol/L BUN (6-23) mg/dl Creatinine (0.6-1.4) mg/dl BUN/Creatinine Ratio (10-20) Glucose (70-99(Fasting)) mg/dl POC Glucose 219 H 167 H (70-99) mg/dl Calcium (8.6-10.3) mg/dl PG Care Time/CCT Total # of Minutes Spent Total Time Spent with Patient: Total time spent is greater than 50% in coordination of care (as documented) at patient's floor/unit and/or counseling patient: Coding Level of Care Code 67110 SUB INP/OBS CARE 2/35MIN Diagnoses Pneumonia J18.9 Neutropenic fever D70.9; R50.81 COVID-19 U07.1 Chronic kidney disease N18.9 CLL (chronic lymphocytic leukemia) C91.90 Enterovirus infection B34.1 Acute diastolic CHF (congestive heart failure) I50.31 Acute hypoxic respiratory failure J96.01 T2DM (type 2 diabetes mellitus) E11.9 Elevated troponin R79.89 Hypothyroidism E03.9
[2023-03-10] MEDS ORDERED: IMMUNE GLOBULIN IV ONE (14:03)
[2023-03-10] MEDS ORDERED: Octagam 10% IVIG 5 gram bottle IV ONE ×2 (14:30)
[2023-03-10] MEDS ORDERED: Octagam 10% IVIG 30 gram bottle IV ONE (15:00)
[2023-03-10] MEDS ORDERED: Octagam 10% IVIG 10 gram bottle IV SCH (15:15)
[2023-03-10] MEDS ORDERED: FUROSEMIDE 40 MG/4 ML VIAL IV ONE (15:30)
--- NOTE | 2023-03-10 16:43 | XRay Report ---
XR chest 1V portable HISTORY: 67 years-old Male hypoxic resp failure acute hypoxia COMPARISON: Chest radiograph studies 03/07/2023 and 01/07/2023, PET/CT 12/25/2022. TECHNIQUE: AP view of the chest FINDINGS: Cardiac silhouette is enlarged. Left subclavian [id number] catheter. Bilateral hilar prominence re demonstrated. There are patchy ill-defined bibasilar and left midlung predominant opacities. Mild rig ht hemidiaphragm elevation. No pneumothorax or large pleural effusion. Degenerative changes of the sh oulders and spine. IMPRESSION: 1. Progressive airspace opacities, most pronounced in the left midlung and right lung base suspicious for multifocal pneumonia. 2. Bilateral hilar enlargement is again noted which likely represents underlying lymphadenopathy and may be related to disease progression in this patient with known leukemia. Findings are progressed co mpared to 01/07/2023. Follow-up with oncology as needed. ACT 112: Negative or not required by law. The above report was generated using voice recognition software. It may contain grammatical, syntax o r spelling errors. Electronically signed by: Benedict Anderson M.D. 03/10/2023 4:41 PM
[2023-03-10] MEDS ORDERED: Octagam 10% IVIG 20 gram bottle IV ONE (17:00)
--- NOTE | 2023-03-10 17:18 | Critical Care Consultation ---
Date of Consultation March 10, 2023 Assessment & Plan (1) Immunoglobulin deficiency, acquired: Reason Critically Ill: 67-year-old male with acute hypoxic respiratory failure in the setting of febrile neutropenia secondary to CLL PLAN: Neuro: Anxiety -1 mg Ativan every 6 hours as needed for anxiety Resp: Acute hypoxic respiratory failure -Continue present therapy which is decreasing -Advocated for self proning and positional changes -If patient becomes profoundly hypoxic would be candidate for intubation -If there is worsening hypoxia would consider high flow nasal cannula CV: Elevated troponins: Minimal -Echo without wall motion abnormality Fluids/Renal: Chronic kidney disease -Currently stable: Followed by Paresh -Check ionized calcium ID: Continue cefepime and Zithromax -We will attempt to evaluate lung parenchyma with CT when possible -Blood culture fungal culture sputum culture urine Legionella and procalcitonin per infectious disease COVID-19: Prolonged isolation of 20 days Enterovirus infection Pelvic hematoma -Currently patient not complaining of pain in that area there is a remote possibility that the hematoma could be a source of infection given l ocation and current morbidities sampling is strongly contraindicated. Blood cultures are pending and if these are positive may necessitate the addition of a more nuanced antibiotic however cefepime offers significantly broad coverage against most likely pathogens at this time. GI/Nutrition: Carb consistent diet Heme: CLL -Transfusion triggers as per oncology hemoglobin less than 7.5 irradiated platelets for less than 10,000 -IV immunoglobulin: 35 g -GCSF per oncology DVT prophylaxis: Chemoprophylaxis contraindicated in the setting of significant thrombocytopenia Endocrine: Continue home levothyroxine Vascular access: Port accessed Code Status: Full code Disposition: Continue current level of support no indication to transfer to ICU status at this time (2) Acute hypoxic respiratory failure: (3) Neutropenic fever: (4) Enterovirus infection: History of Present Illness Reason for Consultation: Acute hypoxic respiratory failure Attending Physician: Elena Nino MD History of Present Illness Patient is a 67-year-old male with past medical history of CLL, pancytopenia with febrile neutropenia prompting his most recent hospitalization. Thus far the patient has been seen by infectious disease and hospitalist medicine. He is currently on cefepime and Zithromax. There was a planned CT of the chest today patient was taken to the CT scanner suite and when he was laid back he desaturated and became more symptomatic. He was on approximately 2 L of oxygen he required up to 8 L and they returned to the ICU without obtaining the scan. Since that time the patient's hypoxia has improved and they are decreasing his oxygen requirement. Currently the patient feels mildly short of breath he is able to speak in full sentences and conversing appropriately. In review of prior records he was recently diagnosed with a spontaneous intrapelvic hemorrhage. Patient reports he also has a prior history of perforated viscus requiring a ostomy placement. Patient also reports he is having significant anxiety related to his medical conditions that is precluding sleep I have reviewed the infectious disease notes as well as the oncology notes. Re peat blood cultures, fungal culture were ordered patient has been unable to produce a sputum specimen at this time. Discussed worsening hypoxia and need for intubation. Patient is agreeable to aggressive measures including intubation should he decompensate further. Confirmed full CODE STATUS, patient has a and 2 young children at home Allergies Allergy/AdvReac Type Severity Reaction Status Date / Time allopurinol Allergy Unknown Rash Verified 03/07/23 08:07 ibrutinib [From Imbruvica] Allergy Unknown LOOKED Verified 03/07/23 19:23 LIKE A LEOPARD SPOTTED ALL OVER NSAIDS (Non-Steroidal AdvReac Unknown DUE TO Verified 03/07/23 19:23 Anti-Inflamma DECREASED KIDNEY FUNCTION Home Medications Medication Instructions Recorded Confirmed Type hydrocortisone 2.5 % topical cream 1 applic topical BID PRN Eczema 07/27/19 03/07/23 History acetaminophen 325 mg capsule 650 mg PO Q6H PRN Fever Or Pain 12/10/19 03/07/23 History (Tylenol) sildenafil 25 mg tablet 25 mg PO DAILY PRN sexual activity 06/19/21 03/07/23 Rx #20 tabs blood-glucose meter #1 ea 11/20/21 03/07/23 Rx lancets (Accu-Chek Softclix #100 ea 11/20/21 03/07/23 Rx Lancets) blood sugar diagnostic #300 ea 11/23/21 03/07/23 Rx atorvastatin 40 mg tablet 40 mg PO QAM #90 tabs 02/05/22 03/07/23 Rx glimepiride 2 mg tablet 4 mg PO QAM #180 tabs 02/05/22 03/07/23 Rx multivitamin 1 tab PO DAILY 02/21/22 03/07/23 History acalabrutinib 100 mg capsule 0 mg PO DAILY 06/20/22 03/07/23 History (Calquence) levothyroxine 50 mcg tablet 50 mcg PO QAM #30 tabs 11/15/22 03/07/23 Rx oxycodone 5 mg tablet 5 mg PO Q4H PRN Pain 01/30/23 03/07/23 History allopurinol 200 mg tablet 200 mg PO BID #180 tabs 02/28/23 03/07/23 Rx amoxicillin 875 mg-potassium 1 tab PO Q12H 03/07/23 03/07/23 History clavulanate 125 mg tablet magnesium 200 mg tablet 400 mg PO DAILY 03/07/23 03/07/23 History Patient History Medical History Anemia Bronchiolitis hx lingering cough illness 05/23 - current abx for/cough improving Cataract, left eye Chronic kidney disease STAGE III. Baseline Cr 1.6-1.8. Cirrhosis (01/19/19) Radiographic evidence on CT AP at [facility] during hospitalization - "Nodularity of the hepatic surface contour indicating early change of cirrhosis." CLL (chronic lymphocytic leukemia) (~2013) Diabetes mellitus, type 2 History of anesthesia problem per "feels he's probably a difficult intubation" Hyperlipidemia Hypertension Hypomagnesemia Hypothyroidism Lower extremity edema Lymphadenopathy Paronychia Port-A-Cath in place POWER/LEFT CHEST Presence of colostomy IN PROCESS OF COLOSTOMY REVERSAL/REASON FOR UPCOMING PROCEDURE. Stroke 2015--SPEECH IS SLIGHTLY SLOWER "word finding issue", slight facial droop when tired Thrombocytopenia Tinnitus of both ears Tumor lysis syndrome Hospitalized 07/27/19 - 07/30/19 - Improved with IVF and Rasburicase 6mg IV x 1. Surgical History H/O right cataract extraction History of bowel resection History of tooth extraction WISDOM TEETH History of vascular access device L CHEST/POWER S/P biopsy (~2019) Bone marrow biopsy x 2 S/P lymph node biopsy (11/11/19) Incisional Biopsy Left Axillary Node Dr. Chao 11/11/19 Status post excisional biopsy (06/21/22) Excisional biopsy left submandibular node (Left) - Harvey Chao MD, FACS Family History Father , 92yo TIA (transient ischemic attack) Diabetes Hypertension Mother , in 80s Endometrial cancer Lupus Heart valve replaced Diabetes Brother Bladder cancer Diabetes Hypertension Sister Diabetes Daughter No problems noted. Daughter No problems noted. 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 Worsens when laying flat. A 10 point review of systems has been obtained and is otherwise negative. Physical Exam Physical Exam: General: Alert. nontoxic. Skin: Warm, dry, Head: Atraumatic Ears, nose, mouth and throat: airway patent Cardiovascular: Normal peripheral perfusion Respiratory: no respiratory distress Gastrointestinal: Non distended Musculoskeletal: No deformity, 1+ pitting edema present Results & Data Results & Data Vital Signs (Past 12 Hours) Vital Signs Temp Pulse Resp BP Pulse Ox O2 Del Method O2 Flow Rate 03/10/23 16:30 39.7 C H 107 H 19 95 03/10/23 16:00 39.6 C H 110 H 16 94 Oxymask 6 03/10/23 16:00 146/84 H 03/10/23 15:34 39.4 C H 111 H 29 H 93 03/10/23 15:34 152/89 H 03/10/23 15:30 39.4 C H 116 H 19 94 03/10/23 15:00 39.1 C H 93 H 22 96 03/10/23 14:30 38.9 C H 92 H 27 H 94 03/10/23 16:00 95 H 03/10/23 14:00 38.8 C H 95 H 21 91 03/10/23 13:00 38.8 C H 101 H 15 92 03/10/23 12:00 38.9 C H 96 H 24 90 03/10/23 12:00 132/69 03/10/23 11:00 38.2 C H 94 H 21 93 03/10/23 10:00 37.8 C H 91 H 26 H 92 03/10/23 08:00 37.2 C 84 19 96 03/10/23 08:00 131/68 03/10/23 07:00 36.9 C 88 22 96 03/10/23 08:00 Nasal Cannula 3 03/10/23 08:42 Nasal Cannula 3 03/10/23 06:00 36.8 C 75 31 H 94 Critical Care Results & Data Vital Signs (Past 12 Hours) Vital Signs Temp Pulse Resp BP Pulse Ox O2 Del Method O2 Flow Rate 03/10/23 16:30 39.7 C H 107 H 19 95 03/10/23 16:00 39.6 C H 110 H 16 94 Oxymask 6 03/10/23 16:00 146/84 H 03/10/23 15:34 39.4 C H 111 H 29 H 93 03/10/23 15:34 152/89 H 03/10/23 15:30 39.4 C H 116 H 19 94 03/10/23 15:00 39.1 C H 93 H 22 96 03/10/23 14:30 38.9 C H 92 H 27 H 94 03/10/23 16:00 95 H 03/10/23 14:00 38.8 C H 95 H 21 91 03/10/23 13:00 38.8 C H 101 H 15 92 03/10/23 12:00 38.9 C H 96 H 24 90 03/10/23 12:00 132/69 03/10/23 11:00 38.2 C H 94 H 21 93 03/10/23 10:00 37.8 C H 91 H 26 H 92 03/10/23 08:00 37.2 C 84 19 96 03/10/23 08:00 131/68 03/10/23 07:00 36.9 C 88 22 96 03/10/23 08:00 Nasal Cannula 3 03/10/23 08:42 Nasal Cannula 3 03/10/23 06:00 36.8 C 75 31 H 94 Lab & Micro Results (Past 24 Hours) RBC 2.59 M/uL (4.70-6.10) L 03/10/23 WBC 28.02 K/ul (4.8-10.8) H 03/10/23 Hgb 8.1 g/dl (14.0-18.0) L 03/10/23 Hct 25.0 % (42.0-52.0) L 03/10/23 MCV 96.5 fL (80.0-100.0) 03/10/23 MCH 31.3 pg (25.0-34.0) 03/10/23 MCHC 32.4 g/dL (32.0-36.0) 03/10/23 RDW Standard Deviation 83.5 fL (36.4-46.3) H 03/10/23 RDW Coefficient of Variation 24.5 % (11.5-14.5) H 03/10/23 Plt Count 20 K/uL (130-400) L* 03/10/23 MPV 11.8 fL (9.4-12.4) 03/10/23 Na 134 mmol/L (136-145) L 03/10/23 K 4.1 mmol/L (3.5-5.1) 03/10/23 Cl 104 mmol/L (98-107) 03/10/23 CO2 22 mmol/L (21-32) 03/10/23 Anion Gap 8 (3-11) 03/10/23 BUN 37 mg/dl (6-23) H 03/10/23 Creatinine 1.82 mg/dl (0.6-1.4) H 03/10/23 Estimated GFR ( Amer) 43.9 ml/min 03/10/23 Estimated GFR (Non-Af Amer) 37.9 ml/min 03/10/23 BUN/Creatinine Ratio 20.3 (10-20) H 03/10/23 Glu 262 mg/dl (70-99(Fasting)) H 03/10/23 Ca 7.7 mg/dl (8.6-10.3) L 03/10/23 Calcium Level 7.7 mg/dl (8.6-10.3) L 03/10/23 03:53 Microbiology 03/10/23 13:08 Fungal Smear - Final Blood 03/07/23 17:23 Aerobic Blood Culture - Preliminary Blood No growth in Aerobic bottle after 48 hours. Anaerobic Blood Culture - Preliminary No growth in Anaerobic bottle after 48 hours. Diagnostic Findings (Past 24 Hours) Chest X-Ray 03/10/23 15:32 XR chest 1V portable HISTORY: 67 years-old Male hypoxic resp failure acute hypoxia COMPARISON: Chest radiograph studies 03/07/2023 and 01/07/2023, PET/CT 12/25/2022. TECHNIQUE: AP view of the chest FINDINGS: Cardiac silhouette is enlarged. Left subclavian [id number] catheter. Bilateral hilar prominence redemonstrated. There are patchy ill-defined bibasilar and left midlung predominant opacities. Mild right hemidiaphragm elevation. No pneumothorax or large pleural effusion. Degenerative changes of the shoulders and spine. IMPRESSION: 1. Progressive airspace opacities, most pronounced in the left midlung and right lung base suspicious for multifocal pneumonia. 2. Bilateral hilar enlargement is again noted which likely represents underlying lymphadenopathy and may be related to disease progression in this patient with known leukemia. Findings are progressed compared to 01/07/2023. Follow-up with oncology as needed. ACT 112: Negative or not required by law. The above report was generated using voice recognition software. It may contain grammatical, syntax or spelling errors. Electronically signed by: Benedict Anderson M.D. 03/10/2023 4:41 PM I & O Totals 24 Hours 03/09/23 03/10/23 03/11/23 06:59 06:59 06:59 Intake Total 1912.5 / 1912.5 1572.5 / 1572.5 350 / 350 Output Total 7400 / 7400 5051 / 5051 700 / 700 Balance -5487.5 / -5487.5 -3478.5 / -3478.5 -350 / -350 Cumulative 03/07/23 16:41 thru 03/10/23 16:11 Intake Total 6420.0 Output Total 59691 Balance -7431.0 RT Ventilator Mngmt (Last Documented) Ventilator Ordered Settings Respiratory Rate 19 03/10/23 16:30 Fraction of Inspired Oxygen 40 10/08/23 22:25 Ventilator - PT Measurements Respiratory Rate 19 Coding Level of Care Code 27739 IN/OBS CONSULT LVL 5,80M Diagnoses Immunoglobulin deficiency, acquired D80.9 Acute hypoxic respiratory failure J96.01 Neutropenic fever D70.9; R50.81 Enterovirus infection B34.1
[2023-03-10] MEDS: oxyCODONE HCL IR 5 MG TAB (IMMEDIATE RELEASE) PO PRN (20:23)
[2023-03-10] MEDS: LORazepam 2 MG/1 ML VIAL IV PRN (20:23)
[2023-03-10] MEDS: AZITHROMYCIN 250 MG in DEXTROSE 5% 250 ML IV SCH (20:23)
[2023-03-11] MEDS: CEFEPIME 2,000 MG in SYRINGE 0 ML IV SCH (05:07)
[2023-03-11] MEDS: LEVOTHYROXINE SODIUM 50 MCG TABLET PO SCH (05:08)
[2023-03-11] MEDS: INSULIN ASPART PER UNIT CHARGE SC SCH ×4 (08:25→20:10)
[2023-03-11] MEDS: allopurinoL 100 MG TAB PO SCH ×2 (08:40→20:01)
[2023-03-11] MEDS: guaiFENesin 600 MG TABCR PO SCH ×2 (08:40→20:01)
[2023-03-11] MEDS: ATORVASTATIN 40 MG TAB PO SCH (08:40)
[2023-03-11] MEDS: ACETAMINOPHEN 1,000 MG/100 ML VIAL IV PRN ×2 (10:03→20:10)
--- NOTE | 2023-03-11 10:24 | Infectious Disease Progress Nt ---
Date of Service March 11, 2023 Assessment & Plan (1) Acute hypoxic respiratory failure: (2) Neutropenic fever: (3) Enterovirus infection: (4) Rhinovirus infection: (5) Immunoglobulin deficiency, acquired: Plan This is a 67-year-old male with past medical history of CLL with pancytopenia, recent spontaneous intrapelvic hemorrhage presents with worsening cough, fever and sob .He was admitted to [facility] from 01/30-02/02 for pneumonia and michelle and treated with Augmentin and dexamethasone for increasing bulky adenopathy His is at bedside and provides additional history. For the last 1 month he has been more fatigue with increased BL LE swelling . His chemotherapy has been on hold after diagnosed with spontaneous intrahepatic hematoma in 12/2022. He was diagnosed with Covid 19 on 02/20 and completed 5 days of Paxlovid. He denies requiring supplemental o2 or much respiratory symptoms at the time His and other family member werr also positive. On 03/05 he traveled to [place] to see a new oncologist to discuss new therapies. While in office, he dev eloped fever, and sob. He was sent the the Ed there for Cxr which showed pna. He received 1 dose Ceftriaxone and azithromycin and was discharged on Augmentin and azithromycin ( he and wanted to come back to [place]) . His symptoms worsened so he presented to [facility]. . In the Ed he had increased work of breathing and tachypnea, He was initially on bipap. Bio fire + covid, enterovirus. Procalcitonin 1.8. Cxr shows patchy bibasilar and left midlung airspace opacities and bilateral hilar lymphadenopathy progressed since 01/07/23. He is febrile and neutropenic. He was started on IV vanco/cefepime and azithromycin. Mrsa nares negative, so vancomycin discontinued. Bc and UC are sterile to date. ID consulted for neutropenic fever. On exam he is uncomfortable and short of breath. He denies any travel except to [place] last week for onc visit. He endorses LE swelling and cough. He denies chest pain, rash , LARA, pain at port site, rashes. He has anxiety related to his disease process and needing hospitalization He remains febrile with Tm, 39.1 WBc 28 k, plts 20k, ANC 0.37 Micro Bc 10/6 NGTD UC 10/6 sterile biofire +10/6 + covid 19, +enterovirus ( also + 11/2022) mrsa nares 03/08 negative Abx Vanco 03/07 Cefepime 03/07-03/11 Azith 03/07- ongoing meropenem 03/11-ongoing voricoanzole 03/11-ongoing # CLL #Acute hypoxic respiratory failure # Multifocal Pneumonia #Covid on 02/20- sp paxlovid. out of window for other covid therapies #Neutropenic fever # Chronic neutropenia #Repeat Enterovirus positivity on bifire ( likely from viral shedding since immunocompromised ) #Port in place He was diagnosed with Covid 19 , 2 weeks ago and is out the window for addition Covid therapie. His test remains positive and is expected as he is immunocompromised. Additionally, his biofire is again positive for enterovirus.THis is likely secondary to viral shedding in an immunocompromised pt. It could also represents infection. There is no anti viral treatment for e nterovirus. I think his current process is most likely secondary to a superimposed Bacterial infection post recent Covid 19 infection. He is neutropenic and febrile, so coverage for Pseudomonas is recommended. He is currently on Cefepime which should cover,if no Resistance. Mrsa coverage was started with iV vanco but discontinued as MRSA pcr is negative. He has no prior history of MDRO or fungal infections On xray there is evidence of multifocal pneumonia, there is also progression of bilateral hilar enlargement/? lymphadenopathy from 01/07/23 studies which may represent disease progression in setting of leukemia or reactive 2/2 infectious process. Repat Procal increased He is chronically neutropenic and is at risk for invasive fungal disease. He was not able to complete CT scan last night. He is on bipap, and remains persistantly febrile and short of breath. He is very anxious on exam. Recommendation. I will broaden cefepime to meropenem 1g iv q8 ( new renal labs( I will add voriconazole He has CLL with prolonged neutropenia putting him a risk for invasive aspergillosis ordered lfts, monitor qtc on voriconazole Continue azithromycin Obtain CT to further eval lung parenchyma Repeat BC ordered FU fungal cx Follow up legionella Follow up BD glucan ( fungitell) Sputum cx, if can produce ID will continue to follow. Jaime Baeza MD, MPH Infectious Disease [facility], [facility] Call [phone] with questions Admission and Anticipated Discharge Date Admission Date: March 07, 2023 Subjective Subsequent visit was provided via telemedicine using two-way real-time interactive telecommunication between the patient and the telemedicine provider. For the duration of the visit, the provider was performing the assessment from a different facility than the patient. This includesuse of bluetooth stethoscope forauscultationperformed by the telepresenter that the telemedicine provider can hear if described in the physical exam. [facility] contact information: Please call [facility] Call Center . (Phone Number For Physician Use Only) After establishing a telemedicine visit, patient was: Patient was verified with two unique identifiers and Patient/authorized rep acknowledged consent and understanding Time Spent with Patient: Subsequent => 25 min He remains febrile tm 39.8 and tachypnic . He is uncomfortable and anxious on exam He was unable to complete Ct chest last night Physical Exam Physical Exam: Gen - in respiratory distress, on bipap lung - wheezing, Left chest port ( not tender, not red) Abd- soft L ostomy Ext - BL LE edema Skin - right LE bruising Neuro- anxious Results & Data Vital Signs (Past 12 Hours) Vital Signs Temp Pulse Resp BP Pulse Ox O2 Del Method FiO2 03/11/23 08:30 39.8 C H 107 H 18 92 03/11/23 08:00 39.8 C H 109 H 24 93 03/11/23 08:00 117/62 03/11/23 07:30 39.8 C H 106 H 20 96 03/11/23 07:00 39.8 C H 105 H 19 96 03/11/23 07:00 123/62 03/11/23 08:00 103 H 03/11/23 07:54 BiPAP 03/11/23 07:47 108 H 24 94 50 03/11/23 05:00 39.5 C H 101 H 18 97 03/11/23 05:00 123/61 03/11/23 04:00 39.2 C H 102 H 15 91 03/11/23 04:00 115/66 03/11/23 03:00 39.1 C H 99 H 16 98 03/11/23 03:00 123/71 03/11/23 02:00 38.8 C H 92 H 14 100 03/11/23 01:00 38.9 C H 96 H 15 99 03/11/23 00:00 38.7 C H 96 H 23 03/11/23 00:00 112/66 03/11/23 02:51 101 H 24 98 50 03/10/23 23:00 38.6 C H 100 H 15 03/10/23 23:00 116/59 L 03/10/23 22:45 101 H 25 H 100 60 Laboratory Results Short CBC 03/11/23 Range/Units 04:44 WBC Cancelled Hgb Cancelled Hct Cancelled Plt Count Cancelled BMP 03/11/23 04:44 Sodium Cancelled Potassium Cancelled Chloride Cancelled Carbon Dioxide Cancelled BUN Cancelled Creatinine Cancelled Glucose Cancelled Calcium Cancelled Diagnostic Findings Microbiology 03/10/23 13:08 Blood Fungal Smear - Final 03/07/23 17:23 Blood Aerobic Blood Culture - Preliminary No growth in Aerobic bottle after 48 hours. 03/07/23 17:23 Blood Anaerobic Blood Culture - Preliminary No growth in Anaerobic bottle after 48 hours. 03/07/23 19:05 Urine,Clean Catch Urine Culture - Final No growth - less than 1,000 colonies/mL. Chest X-Ray 03/10/23 15:32 XR chest 1V portable HISTORY: 67 years-old Male hypoxic resp failure acute hypoxia COMPARISON: Chest radiograph studies 03/07/2023 and 01/07/2023, PET/CT 12/25/2022. TECHNIQUE: AP view of the chest FINDINGS: Cardiac silhouette is enlarged. Left subclavian [id number] catheter. Bilateral hilar prominence redemonstrated. There are patchy ill-defined bibasilar and left midlung predominant opacities. Mild right hemidiaphragm elevation. No pneumothorax or large pleural effusion. Degenerative changes of the shoulders and spine. IMPRESSION: 1. Progressive airspace opacities, most pronounced in the left midlung and right lung base suspicious for multifocal pneumonia. 2. Bilateral hilar enlargement is again noted which likely represents underlying lymphadenopathy and may be related to disease progression in this patient with known leukemia. Findings are progressed compared to 01/07/2023. Follow-up with oncology as needed. ACT 112: Negative or not required by law. The above report was generated using voice recognition software. It may contain grammatical, syntax or spelling errors. Electronically signed by: Benedict Anderson M.D. 03/10/2023 4:41 PM
--- NOTE | 2023-03-11 12:52 | Hospitalist Progress Note ---
Date of Service March 11, 2023 Assessment & Plan (1) Pneumonia: Plan: 67yo male with CLL, neutropenia (ANC 0.7), thrombocytopenia and anemia presenting with fever, cough, SOB. patient was initially on BIPAP for increased work of breathing. [employer] panel with +Covid-19 as well as Enterovirus. Possible bacterial component as well given elevation of Procalcitonin to 1.8 Immunocompromised host with neutropenic fever Started on broad-spectrum antibiotics. Currently on cefepime and azithromycin. MRSA Swab negative Infectious disease on board. Broaden the antibiotic coverage further. Switched cefepime to meropenem. Voriconazole started by infectious disease ID recommends monitoring QTc on voriconazole. LFTs ordered. follow up on fungal culture, Legionella, BD glucan CT chest was not able to be done due to respiratory distress increased oxygen needs increased respiratory distress today [employer] on board. Spoke to Dr. Brady (2) Neutropenic fever: Plan: covered with broad-spectrum antibiotics. Hemodynamically stable Oncology on board infectious disease on board Spoke to on the phone. she does not want the patient to be transferred to [place] at this time. (3) Acute hypoxic respiratory failure: Plan: Worse today CT chest could not be obtained chest x-ray showed progressive airspace opacities, most pronounced in the lower mid left lung and right lung base suspicious for multifocal pneumonia. [employer] Adviser on board We will try with oxy mask for now. Likely multifactorial due to pneumonia (Likely viral but being covered for bacterial and fungal as well), fluid overload and CHF Continue diuretics as needed, antibiotics and supportive treatment (4) COVID-19: Plan: Patient diagnosed with Covid on 02/20/23. He was treated with Paxlovid. -Maintain isolation precautions for now - patient immunocompromised with underlying malignancy - prolonged isolation recommended 20 days -Infection control for removal of Covid isolation precautions (5) Chronic kidney disease: Plan: stage III BUN and Cr Stable. Patient follows with Nephrology. Patient refused a.m. labs -Continue Allopurinol 200mg po BID if able to take p.o. -Avoid nephrotoxic agents -Renal dosing where needed (6) CLL (chronic lymphocytic leukemia): Plan: Patient with chronic anemia, thrombocytopenia. No active bleeding -Monitor H/H - transfuse for Hgb <7 -Maintain Neutropenic isolation precautions Pancytopenia likely secondary to CLL or chemotherapy Appreciate oncology input Oncologist considering IVIG (7) Enterovirus infection: Plan: continue supportive treatment (8) Acute diastolic CHF (congestive heart failure): Plan: patient appeared to be volume overloaded and responded to A few doses of Lasix during this hospital stay Echocardiogram showed preserved EF (9) T2DM (type 2 diabetes mellitus): Plan: Patient with hypoglycemia upon arrival. Given D50 with improvement. Possibly secondary to underlying infection as well as decreased oral intake -ISS as needed (10) Elevated troponin: Plan: Patient with minimal elevation of troponin. 28.5 --> 31.3. No acute ischemic changes on EKG. -Trend troponin - echo showed no wall motion abnormalities or depressed EF (11) Hypothyroidism: Plan: Chronic -Continue Synthroid if able to take p.o. Plan F/E/N - Saline lock. Monitor electrolytes and replete as needed. CC diet as tolerated Ppx - SCDs (Lovenox discontinued due to thrombocytopenia and anemia) Code - Full Admission and Anticipated Discharge Date Admission Date: March 07, 2023 Subjective Per nurse, earlier today he desaturated as soon as the BiPAP mask was removed. The patient appears anxious. He is asking if he will be put on the ventilator and if he will be able to come off of the vent. Review of Systems Review of Systems: All systems reviewed & are unremarkable except as noted in Subjective Physical Exam Physical Exam: General: Awake, conversant Drowsy. Wakes up anxious. Heart: S1, S2/regular rate and rhythm, no murmur rubs or gallops Lungs: Bilateral crackles. Increased effort Abdomen: Soft/nontender/nondistended. No hepatosplenomegaly Extremities: No clubbing/cyanosis. 1+ pitting bilateral edema Behavior: Appropriate, cooperative Results & Data Results & Data Vital Signs (Past 12 Hours) Vital Signs Temp Pulse Resp BP Pulse Ox O2 Del Method FiO2 03/11/23 08:30 39.8 C H 107 H 18 92 03/11/23 08:00 39.8 C H 109 H 24 93 03/11/23 08:00 117/62 03/11/23 07:30 39.8 C H 106 H 20 96 03/11/23 07:00 39.8 C H 105 H 19 96 03/11/23 07:00 123/62 03/11/23 08:00 103 H 03/11/23 07:54 BiPAP 03/11/23 07:47 108 H 24 94 50 03/11/23 05:00 39.5 C H 101 H 18 97 03/11/23 05:00 123/61 03/11/23 04:00 39.2 C H 102 H 15 91 03/11/23 04:00 115/66 03/11/23 03:00 39.1 C H 99 H 16 98 03/11/23 03:00 123/71 03/11/23 02:00 38.8 C H 92 H 14 100 03/11/23 01:00 38.9 C H 96 H 15 99 03/11/23 02:51 101 H 24 98 50 Laboratory Results Abnormal lab results 03/10/23 03/10/23 03/10/23 Range/Units 13:08 15:37 20:21 POC Glucose 120 H 133 H (70-99) mg/dl Procalcitonin 5.22 H (0-0.5) ng/ml 03/11/23 03/11/23 03/11/23 Range/Units 07:40 11:06 11:07 POC Glucose 142 H 224 H 232 H (70-99) mg/dl Procalcitonin (0-0.5) ng/ml PG Care Time/CCT Total # of Minutes Spent Total Time Spent with Patient: Total time spent is greater than 50% in coordination of care (as documented) at patient's floor/unit and/or counseling patient: Coding Level of Care Code 89054 SUB INP/OBS CARE 2/35MIN Diagnoses Pneumonia J18.9 Neutropenic fever D70.9; R50.81 Acute hypoxic respiratory failure J96.01 COVID-19 U07.1 Chronic kidney disease N18.9 CLL (chronic lymphocytic leukemia) C91.90 Enterovirus infection B34.1 Acute diastolic CHF (congestive heart failure) I50.31 T2DM (type 2 diabetes mellitus) E11.9 Elevated troponin R79.89 Hypothyroidism E03.9
[2023-03-11 13:22] LABS: Creatinine Clr Calc Pharmacy 43.2 ml/min; Est GFR (African American) 36.7 ml/min; Est GFR (Non-African American) 31.7 ml/min
[2023-03-11] MEDS: VORICONAZOLE 200 MG TABLET PO SCH ×2 (14:05→20:01)
[2023-03-11] MEDS: MEROPENEM 500 MG in SYRINGE 0 ML IV SCH ×2 (14:05→23:08)
[2023-03-11 16:40] LABS: A calco-baum cmplx NotReported Not Detected (NotDetected); Bact fragilis Not Reported Not Detected (NotDetected); C auris Not Reported Not Detected (NotDetected); Calbicans Not Reported Not Detected (NotDetected); Candida glabrata Not Reported Not Detected (NotDetected); Candida krusei Not Reported Not Detected (NotDetected); Cneoformans/gatti Not Reported Not Detected (NotDetected); Cparapsilosis Not Reported Not Detected (NotDetected); E cloacae compx Not Reported Not Detected (NotDetected); Efaecalis Not Reported Not Detected (NotDetected); Efaecium Not Reported Not Detected (NotDetected); Enterobacterales Not Reported Not Detected (NotDetected); Escherichia coli Not Reported Not Detected (NotDetected); H influenzae Not Reported Not Detected (NotDetected); K aerogenes Not Reported Not Detected (NotDetected); Koxytoca Not Reported Not Detected (NotDetected); Kpneumoniae grp Not Reported Not Detected (NotDetected); Lmonocyt Not Reported Not Detected (NotDetected); N meningitidis Not Reported Not Detected (NotDetected); P aeruginosa Not Reported Not Detected (NotDetected); Proteus spp Not Reported Not Detected (NotDetected); Salmonella spp Not Reported Not Detected (NotDetected); Smarcescens Not Reported Not Detected (NotDetected); Staph lugdunensis Not Reported Not Detected (NotDetected); Staph spp. Not Reported DETECTED (NotDetected); Staphaureus Not Reported Not Detected (NotDetected); Staphepi Not Reported DETECTED (NotDetected); Stenmaltophilia Not Reported Not Detected (NotDetected); Strep agal(GrpB) Not Reported Not Detected (NotDetected); Strep pneum Not Reported Not Detected (NotDetected); Strep pyog (GrpA) Not Reported Not Detected (NotDetected); Strep spp Not Reported Not Detected (NotDetected)
[2023-03-11] MEDS: AZITHROMYCIN 250 MG in DEXTROSE 5% 250 ML IV SCH (18:04)
[2023-03-11] MEDS: ACETAMINOPHEN 325 MG TAB PO PRN (18:28)
[2023-03-11 18:31] LABS: Staphylococcus epidermidis DETECTED (NotDetected); Staphylococcus spp. DETECTED (NotDetected); mecAC Resistant Gene DETECTED (NotDetected)
[2023-03-11] MEDS: LORazepam 2 MG/1 ML VIAL IV PRN (20:01)
[2023-03-11] MEDS: oxyCODONE HCL IR 5 MG TAB (IMMEDIATE RELEASE) PO PRN (21:01)
[2023-03-12] MEDS: MEROPENEM 500 MG in SYRINGE 0 ML IV SCH ×3 (05:34→21:11)
[2023-03-12] MEDS: LORazepam 2 MG/1 ML VIAL IV PRN (05:56)
[2023-03-12 06:28] LABS: iSTAT Allen Test Pass; iSTAT Art Bld Gas pCO2 Correct 43 mmHg (35-46); iSTAT Art Bld Gas pH Corrected 7.323 (7.35-7.45); iSTAT Arterial Blood Gas HCO3 22 meg/L (19-24); iSTAT Arterial Blood Gas pCO2 39 mmHg (35-46); iSTAT Arterial Blood Gas pH 7.36 (7.35-7.45); iSTAT Arterial Blood Gas pO2 176 mmHg (80-95); iSTAT Arterial Blood Gas pO2 C 189; iSTAT Carbon Dioxide 23 mmol/L (24-31); iSTAT FiO2 100 %; iSTAT Hematocrit 21 % (42-52); iSTAT Hemoglobin 7.1 g/dl (14.0-18.0); iSTAT Potassium 5.3 mmol/L (3.3-5.0); iSTAT Site L Radial; iSTAT Sodium 134 mmol/L (135-144)
[2023-03-12 07:19] LABS: Hematocrit (blood only) 22.2 % (42.0-52.0); Hemoglobin 7.4 g/dl (14.0-18.0); Mean Corpuscular Hemoglobin 32.2 pg (25.0-34.0); Mean Corpuscular Hgb Conc 33.3 g/dL (32.0-36.0); Mean Corpuscular Volume 96.5 fL (80.0-100.0); Mean Platelet Volume 12.5 fL (9.4-12.4); Platelet Count 20 K/uL (130-400); RDW Coefficient of Variation 24.1 % (11.5-14.5); RDW Standard Deviation 83.7 fL (36.4-46.3); White Blood Count 26.09 K/ul (4.8-10.8)
[2023-03-12] MEDS: LEVOTHYROXINE SODIUM 50 MCG TABLET PO SCH (07:27)
[2023-03-12 07:28] LABS: Calcium 8.1 mg/dl (8.6-10.3); Creatinine Clr Calc Pharmacy 33.1 ml/min; Est GFR (Non-African American) 23.3 ml/min; Potassium 5.4 mmol/L (3.5-5.1)
[2023-03-12] MEDS: ACETAMINOPHEN 1,000 MG/100 ML VIAL IV PRN ×2 (09:09→21:30)
[2023-03-12] MEDS: INSULIN ASPART PER UNIT CHARGE SC SCH ×3 (09:26→17:58)
--- NOTE | 2023-03-12 10:03 | Critical Care Progress Note ---
Date of Service March 12, 2023 Assessment & Plan (1) Immunoglobulin deficiency, acquired: Plan: Reason Critically Ill: 67-year-old male with acute hypoxic respiratory failure in the setting of febrile neutropenia secondary to CLL PLAN: Neuro: Encephalopathy: Multifactorial - Check VBG for hypercarbia:Within normal limits And ammonia level: Within normal limits - worsening renal function - if we intubate the patient I would strongly advocate for CT of the head as well as CT of the chest after controlled airway Anxiety - discontinued Ativan secondary to sedation to facilitate mechanical ventilation Resp: Acute hypoxic respiratory failure -With joint medical decision making with patient's proceeded with elective intubation -If we secure the airway I would consider proning however the patient does rapidly recover with supplemental oxygen -CT scan reviewed which revealed dense left lower lobe pneumonia as well as multilobar pneumonia -Underwent bronchoscopy and specimen obtained -Expanded antibiotics per infectious disease CV: Echo reviewed. Fluids/Renal: Acute kidney failure on chronic kidney disease -Nephrology consult -Present blood dyscrasias would make renal replacement therapy difficult - Patient has been running a negative fluid balance we will give bolus of fluid and maintenance fluids ID: Reviewed infectious disease notes -Meropenem 1 g IV every 8 hours -Voriconazole for CLL and risk of invasive aspergillosis -Azithromycin -Vancomycin -Single blood culture positive for coag negative staph questionable contaminant repeat have been ordered and obtained -Consider antibiotic lock to port COVID-19: Infection control to discuss with infectious disease regarding removal of airborne precautions, - to continue at this point Enterovirus infection Pelvic hematoma -Interval improvement on noncontrast CT scan GI/Nutrition: N.p.o. -Start supplemental tube feeds Heme: CLL -Transfusion triggers as per oncology hemoglobin less than 7.5 irradiated platelets for less than 10,000 -GCSF per oncology DVT prophylaxis: Chemoprophylaxis contraindicated in the setting of significant thrombocytopenia Endocrine: Continue home levothyroxine Vascular access: Port accessed -Reportedly no longer functioning will administer Cathflo - repeat cultures from port, elucidate which sites single blood culture was positive from Code Status: Limited code: No chest compressions in event of cardiac arrest Disposition: ICU (2) Acute hypoxic respiratory failure: (3) Neutropenic fever: (4) Enterovirus infection: Admission and Anticipated Discharge Date Admission Date: March 07, 2023 Subjective Patient had been tolerating BiPAP overnight however patient's mental status has deteriorated and is self discontinuing BiPAP. His oxygen saturations precipitously drops however it also rapidly recovers with supplemental oxygen. As long as he is able to keep his 15 L nonrebreather mask on he is saturating in the mid 90s. Had extensive discussion with the patient's at the bedside as he was encephalopathic and no longer able to persist dissipate in discussions regarding his care. Without supplemental oxygen he would rapidly desaturate however he would quickly recover. It was felt given his encephalopathy he would be safer with intubation to preclude hypoxia leading to a possible terminal event. An extensive discussion with possibilities of transfer to tertiary [facility] for any sort of additional modalities including but not limited to renal replacement therapy, ECMO, chemotherapy: Salvage. Admittedly both ECMO and renal replacement therapy would be highly unlikely given significant blood dyscrasias at the present time. Patient's also stated that they had looked for alternative chemotherapy as well as clinical trials and his condition had worsened since being evaluated and at that time he was precluded given his underlying laboratory values. We discussed possibility of a poor outcome to include passing away, patient's and 's support network is here local and without obvious strong indication for transfer to tertiary [facility] would prefer to remain receiving care here. Review of Systems Review of Systems: Unobtainable due to reduced consciousness Physical Exam Physical Exam: General: Uncomfortable appearing. Irritable,. Skin: Mild diaphoresis, warm, Head: Atraumatic Ears, nose, mouth and throat: airway patent Cardiovascular: Normal peripheral perfusion Respiratory: Mild to moderate tachypnea, no accessory muscle use Gastrointestinal: Non distended Musculoskeletal: No deformity Results & Data Results & Data Vital Signs (Past 12 Hours) Vital Signs Temp Pulse Resp BP Pulse Ox O2 Del Method O2 Flow Rate 03/12/23 09:00 107 H 17 99 Oxymask 15 03/12/23 09:00 123/62 03/12/23 08:00 106 H 16 99 03/12/23 08:00 125/66 03/12/23 07:00 109 H 17 98 03/12/23 07:00 119/57 L 03/12/23 06:00 112 H 33 H 94 03/12/23 06:00 128/67 03/12/23 05:00 112 H 19 95 03/12/23 05:00 39.3 C H 118/57 L 03/12/23 06:21 109 H 19 99 03/12/23 04:00 114 H 17 94 03/12/23 04:00 123/58 L 03/12/23 03:00 110 H 17 94 03/12/23 03:00 120/61 03/12/23 02:00 108 H 15 92 03/12/23 02:00 109/61 03/12/23 01:00 106 H 16 93 03/12/23 01:00 123/66 03/12/23 00:00 103 H 15 94 03/12/23 00:00 117/63 03/12/23 00:00 39 C H 03/12/23 02:15 109 H 16 92 03/12/23 00:00 103 H 03/11/23 23:00 100 H 38 H 84 L 03/11/23 23:00 115/65 03/11/23 23:43 104 H 20 94 FiO2 03/12/23 09:00 03/12/23 09:00 03/12/23 08:00 03/12/23 08:00 03/12/23 07:00 03/12/23 07:00 03/12/23 06:00 03/12/23 06:00 03/12/23 05:00 03/12/23 05:00 03/12/23 06:21 70 03/12/23 04:00 03/12/23 04:00 03/12/23 03:00 03/12/23 03:00 03/12/23 02:00 03/12/23 02:00 03/12/23 01:00 03/12/23 01:00 03/12/23 00:00 03/12/23 00:00 03/12/23 00:00 03/12/23 02:15 50 03/12/23 00:00 03/11/23 23:00 03/11/23 23:00 03/11/23 23:43 40 Critical Care Results & Data Vital Signs (Past 12 Hours) Vital Signs Temp Pulse Resp BP Pulse Ox O2 Del Method O2 Flow Rate 03/12/23 09:00 107 H 17 99 Oxymask 15 03/12/23 09:00 123/62 03/12/23 08:00 106 H 16 99 03/12/23 08:00 125/66 03/12/23 07:00 109 H 17 98 03/12/23 07:00 119/57 L 03/12/23 06:00 112 H 33 H 94 03/12/23 06:00 128/67 03/12/23 05:00 112 H 19 95 03/12/23 05:00 39.3 C H 118/57 L 03/12/23 06:21 109 H 19 99 03/12/23 04:00 114 H 17 94 03/12/23 04:00 123/58 L 03/12/23 03:00 110 H 17 94 03/12/23 03:00 120/61 03/12/23 02:00 108 H 15 92 03/12/23 02:00 109/61 03/12/23 01:00 106 H 16 93 03/12/23 01:00 123/66 03/12/23 00:00 103 H 15 94 03/12/23 00:00 117/63 03/12/23 00:00 39 C H 03/12/23 02:15 109 H 16 92 03/12/23 00:00 103 H 03/11/23 23:00 100 H 38 H 84 L 03/11/23 23:00 115/65 03/11/23 23:43 104 H 20 94 FiO2 03/12/23 09:00 03/12/23 09:00 03/12/23 08:00 03/12/23 08:00 03/12/23 07:00 03/12/23 07:00 03/12/23 06:00 03/12/23 06:00 03/12/23 05:00 03/12/23 05:00 03/12/23 06:21 70 03/12/23 04:00 03/12/23 04:00 03/12/23 03:00 03/12/23 03:00 03/12/23 02:00 03/12/23 02:00 03/12/23 01:00 03/12/23 01:00 03/12/23 00:00 03/12/23 00:00 03/12/23 00:00 03/12/23 02:15 50 03/12/23 00:00 03/11/23 23:00 03/11/23 23:00 03/11/23 23:43 40 Lab & Micro Results (Past 24 Hours) RBC 2.30 M/uL (4.70-6.10) L 03/12/23 WBC 26.09 K/ul (4.8-10.8) H 03/12/23 Hgb 7.4 g/dl (14.0-18.0) L 03/12/23 Hct 22.2 % (42.0-52.0) L 03/12/23 MCV 96.5 fL (80.0-100.0) 03/12/23 MCH 32.2 pg (25.0-34.0) 03/12/23 MCHC 33.3 g/dL (32.0-36.0) 03/12/23 RDW Standard Deviation 83.7 fL (36.4-46.3) H 03/12/23 RDW Coefficient of Variation 24.1 % (11.5-14.5) H 03/12/23 Plt Count 20 K/uL (130-400) L* 03/12/23 MPV 12.5 fL (9.4-12.4) H 03/12/23 Na 135 mmol/L (136-145) L 03/12/23 K 5.4 mmol/L (3.5-5.1) H 03/12/23 Cl 104 mmol/L (98-107) 03/12/23 CO2 23 mmol/L (21-32) 03/12/23 Anion Gap 8 (3-11) 03/12/23 BUN 57 mg/dl (6-23) H 03/12/23 Creatinine 2.72 mg/dl (0.6-1.4) H 03/12/23 Estimated GFR ( Amer) 27.0 ml/min 03/12/23 Estimated GFR (Non-Af Amer) 23.3 ml/min 03/12/23 BUN/Creatinine Ratio 21.0 (10-20) H 03/12/23 Glu 152 mg/dl (70-99(Fasting)) H 03/12/23 Ca 8.1 mg/dl (8.6-10.3) L 03/12/23 Calcium Level 8.1 mg/dl (8.6-10.3) L 03/12/23 06:51 Venous Blood pH 7.24 (7.36-7.41) L 03/12/23 10:16 Venous Blood Partial Pressure CO2 48 mmHg (38-50) 03/12/23 10:1 6 Venous Blood Partial Pressure O2 66 mmHg 03/12/23 10:16 Venous Blood HCO3 21 mmol/L 03/12/23 10:16 Venous Blood Base Excess -6.9 mEq/L 03/12/23 10:16 Venous Blood Oxygen Saturation 93.2 % 03/12/23 10:16 Alphonso Test Pass 03/12/23 06:12 Microbiology 03/10/23 22:30 Aerobic Blood Culture - Preliminary Blood Coag neg staph not lugdunensis Anaerobic Blood Culture - Preliminary No growth in Anaerobic bottle after 24 hours. 03/10/23 13:08 Aerobic Blood Culture - Preliminary Blood No growth in Aerobic bottle after 24 hours. Anaerobic Blood Culture - Final I & O Totals 24 Hours 03/11/23 03/12/23 03/13/23 06:59 06:59 06:59 Intake Total 962.5 / 962.5 452.5 / 452.5 100 / 100 Output Total 2200 / 2200 885 / 885 Balance -1237.5 / -1237.5 -432.5 / -432.5 100 / 100 Cumulative 03/07/23 16:41 thru 03/12/23 09:42 Intake Total 7585.0 Output Total 33045 Balance -8651.0 RT Ventilator Mngmt (Last Documented) Ventilator Ordered Settings Respiratory Rate 17 03/12/23 09:00 Fraction of Inspired Oxygen 70 03/12/23 06:21 Ventilator - PT Measurements Respiratory Rate 17 Coding Level of Care Code 20471 CRITICAL CARE 1ST 30-74M Additional Critical Care Time Additional 30min Critical Care Time: Yes - 10076 x 3 (90 addl min) Total Critical Care Time: 150 Diagnoses Immunoglobulin deficiency, acquired D80.9 Acute hypoxic respiratory failure J96.01 Neutropenic fever D70.9; R50.81 Enterovirus infection B34.1 Additional Codes Critical Care Time - Additional 30min Critical Care Time: Yes - 31962 x 3 (90 addl min) ([id number])
[2023-03-12] MEDS ORDERED: HALOPERIDOL LACTATE 5 MG/ML 1 ML VIAL ONE (10:13)
[2023-03-12] MEDS ORDERED: HALOPERIDOL LACTATE 5 MG/ML 1 ML VIAL IV STA (10:18)
[2023-03-12 10:28] LABS: Base Excess VBG -6.9 mEq/L; HCO3 VBG 21 mmol/L; Oxygen Saturation VBG 93.2 %; PCO2 VBG 48 mmHg (38-50); PO2 VBG 66 mmHg; pH VBG 7.24 (7.36-7.41)
[2023-03-12] MEDS ORDERED: fentaNYL citrate 2,500 MCG/250 ML BAG IV ONE (10:46)
[2023-03-12] MEDS ORDERED: RAPID SEQUENCE INDUCTION BAG ONE (10:46)
[2023-03-12] MEDS ORDERED: PROPOFOL IV EMULSION 10 MG/ML 100 ML VIAL IV ONE (10:46)
[2023-03-12] MEDS ORDERED: ROCURONIUM BROMIDE 10 MG/ML 5 ML VIAL IV STA (11:18)
[2023-03-12] MEDS ORDERED: ETOMIDATE 2 MG/ML 20 ML VIAL IV ONE ×2 (11:18→14:21)
[2023-03-12] MEDS ORDERED: STAT IV Infusion **Titration per Protocol STA ×4 (11:19→21:26)
[2023-03-12] MEDS ORDERED: ROCURONIUM BROMIDE 10 MG/ML 5 ML VIAL IV ONE ×2 (11:20→14:21)
[2023-03-12] MEDS: allopurinoL 100 MG TAB PO SCH (11:42)
[2023-03-12] MEDS: VORICONAZOLE 200 MG TABLET PO SCH (11:42)
[2023-03-12] MEDS: ATORVASTATIN 40 MG TAB PO SCH (11:42)
[2023-03-12] MEDS: guaiFENesin 600 MG TABCR PO SCH (11:42)
[2023-03-12] MEDS: fentaNYL BOLUS from BAG IV PRN ×2 (11:45→15:30)
[2023-03-12] MEDS: propofoL 1,000 MG/100 ML VIAL IV SCH ×4 (11:58→22:10)
[2023-03-12] MEDS: fentaNYL citrate 2,500 MCG/250 ML BAG IV SCH (11:59)
[2023-03-12] MEDS: PROPOFOL BOLUS FROM BAG IV PRN (12:16)
--- NOTE | 2023-03-12 12:34 | XRay Report ---
KUB CLINICAL HISTORY: OG placement COMPARISON STUDY: CT of the abdomen and pelvis January 30, 2023. FINDINGS: The tip of the nasogastric tube is within the distal body of the stomach. Visualized bowel gas pattern is unremarkable. IMPRESSION: Tip of nasogastric tube within the distal body of the stomach. ACT 112: Negative or not required by law. Electronically signed by: Pito Curiel M.D. 03/12/2023 12:33 PM
[2023-03-12] MEDS ORDERED: Nursing to Pharmacy Communication SCH ×2 (12:45→17:45)
--- NOTE | 2023-03-12 12:45 | XRay Report ---
XR chest 1V portable HISTORY: Respiratory failure. intubation COMPARISON: Chest 03/10/2023. FINDINGS: The endotracheal tube terminates 8.6 cm from the gabino. This should be advanced by approxi mately 4 to 5 cm. Nasogastric tube terminates below the diaphragm. The tip is not included on this st udy. A left-sided Port-A-Cath terminates in the SVC. This remains unchanged. There are low lung volum es. No pneumothorax. The cardiac silhouette remains enlarged. Suspect small bilateral pleural effusio ns. Bilateral mid to lower lung zone airspace opacities persist. This is most pronounced within the l eft midlung zone. Bilateral mediastinal and hilar prominence again noted. This could represent underl dae lymphadenopathy. IMPRESSION: 1. The endotracheal tube terminates 8.6 cm from the gabino. This should be advanced by approximately 4 to 5 cm. 2. The nasogastric tube terminates below the diaphragm. 3. Bilateral airspace opacities persist. 4. Mediastinal and hilar fullness suggests underlying lymphadenopathy. ACT 112: Negative or not required by law. Electronically signed by: Eron Abdalla M.D. 03/12/2023 12:44 PM
--- NOTE | 2023-03-12 12:48 | Procedure Note ---
Procedure Note Date of Service March 12, 2023 Note ARTERIAL LINE PROCEDURE NOTE: Procedure: Arterial Line Placement Proceduralist: Bautista MARK ([facility]) Attending: Dr. Brady Indication: Monitoring on Pressors Anesthesia: [x]None [x]Consent was signed and placed on the chart prior to procedure. Indication, risks, and benefits were explained at length by Dr. Brady A time-out was completed verifying correct patient, procedure, site, positioning. Allens test was performed to ensure adequate perfusion. Patients RIGHT wrist was prepped and draped in the usual sterile fashion. Ultrasound guidance was used to grocery manager the vessel prior and for direct visualization to aid needle placement. A 20g Arrow arterial line was introduced into the RIGHT RADIAL artery. Catheter was threaded, without resistance there was no blood return when removing wire and needle, the catheter was backed out until blood return the needle and wire was advanced without resistance and the catheter was then advanced without resistance and was noted with appropriate blood return. Pre ssure tubing was attached and noted good arterial waveform. The patient tolerated the procedure well. The catheter was sutured in place and tegaderm was placed over site. Blood Loss: Minimal Complications: None immediately noted Procedural Ultrasound Guidance: Procedure Date: 03/12/23/ Indication: Direct Visualization to aid needle placement Proceduralist: Bautista MARK ([facility]) Attending: Dr. Brady Artery Identified: YES Complications: NONE Patient tolerated procedure: WELL Images not saved to permanent record secondary to urgency of procedure Coding CPT Codes Tubes, Drains, and Vasc Access - Tubes, Drains, and Vasc Access: [id number] Arterial Cath/Cannulation Sampling/Monitoring/Transfusion ([id number]) Tubes, Drains, and Vasc Access - Tubes, Drains, and Vasc Access: [id number] Ultrasound Guidance For Vascular ([id number]) [employer] [employer] Procedure Codes (Charges) Tubes, Drains, and Vasc Access Procedure 1: Tubes, Drains, and Vasc Access: [id number] Arterial Cath/Cannulation Sampling/Monitoring/Transfusion Procedure 2: Tubes, Drains, and Vasc Access: [id number] Ultrasound Guidance For Vascular
--- NOTE | 2023-03-12 13:45 | CT Scan Report ---
ABDOMEN AND PELVIS CT WITHOUT CONTRAST CT DOSE: HISTORY: fever, acute renal failure TECHNIQUE: Multiaxial CT images of the abdomen and pelvis were performed without contrast. A dose lo wering technique was utilized adhering to the principles of ALARA. COMPARISON STUDY: Abdomen and pelvis CT 01/30/2023. FINDINGS: Bibasilar consolidation most pronounced on the left likely represents a pneumonia. This is better appreciated on the same day chest CT. Partially visualized lymphadenopathy within the lower ch est again noted. Nasogastric tube terminates in the distal stomach. No pneumoperitoneum. No pneumatos is. No acute fractures identified. Small fat-containing umbilical hernia again noted. There is a larg e left lower quadrant parastomal hernia containing multiple loops of nonobstructed bowel. This remain s unchanged. There is moderate body wall edema which has progressed. The bladder is decompressed by F oley catheter. Mass effect along the bladder from the pelvic lymphadenopathy has slightly improved. H yperdense material within the gallbladder may represent sludge or small stones. This remains unchange d. The unenhanced liver and adrenal glands are unremarkable. No hydronephrosis. Moderate bilateral pe rinephric edema has slightly progressed. The spleen is enlarged measuring 16 cm in length. This has s lightly progressed. The unenhanced pancreas appears unremarkable. Normal caliber abdominal aorta. Tra ce pelvic free fluid. Suboptimal evaluation for bowel pathology due to the lack of intravenous and or al contrast. However, no evidence for a bowel obstruction. Questionable thickening of the ascending c olon is likely due to the patient's underlying edema. No definite bowel wall thickening identified. B ulky lymphadenopathy seen throughout the abdomen and pelvis is similar to the prior study. Small amou nt of residual right extraperitoneal hemorrhage adjacent to Large right pelvic lymph node has improved. This is primarily low density and therefore favors old he morrhage. No evidence for acute hemorrhage at this time. IMPRESSION: 1. Consolidative airspace opacities within the lung bases are better appreciated on the same day ches t CT. This likely represents a pneumonia. 2. Bulky lymphadenopathy within the abdomen and pelvis persists. This similar to the prior study. 3. Moderate body wall edema has progressed. 4. Splenomegaly has slightly progressed. 5. Questionable thickening of the ascending colon is likely due to the patient's edematous state. Oth erwise, no definite bowel wall thickening or obstruction. 6. Near-complete resolution of the small amount of chronic residual hemorrhage within the right pelvi c sidewall. No progressive or acute retroperitoneal hemorrhage identified. 7. Additional findings as described above. ACT 112: Negative or not required by law. Electronically signed by: Eron Abdalla M.D. 03/12/2023 1:43 PM
--- NOTE | 2023-03-12 13:52 | CT Scan Report ---
CT head/brain wo con CLINICAL HISTORY: 67 years-old Male with ALOC. Acutely altered mental status TECHNIQUE: Multiple axial CT images of the head were obtained without contrast. A dose lowering tech nique was utilized adhering to the principles of ALARA. COMPARISON: Brain MRI 02/23/2016 FINDINGS: No acute intracranial hemorrhage, midline shift, intracranial mass, hydrocephalus, territorial ischem ia or abnormal extra-axial collection. Mild progression of the chronic microvascular ischemic disease . Chronic appearing left periventricular lacunar infarct. Dense cerebral vascular calcifications. The calvarium is intact. Right-sided lens repair. Small right mastoid effusion. Moderate to severe mu cosal thickening of the paranasal sinuses with air-fluid levels likely representing acute on chronic process. IMPRESSION: No acute intracranial abnormality. ACT 112: Negative or not required by law. The above report was generated using voice recognition software. It may contain grammatical, syntax o r spelling errors. Electronically signed by: Benedict Anderson M.D. 03/12/2023 1:50 PM
[2023-03-12] MEDS: VORICONAZOLE 350 MG in 0.9 % SODIUM CHLORIDE 65 ML IV SCH (13:54)
--- NOTE | 2023-03-12 13:57 | CT Scan Report ---
CT OF THE CHEST WITHOUT IV CONTRAST CLINICAL HISTORY: Hypoxia. CLL. COMPARISON STUDY: Chest CT October 16, 2022. Chest radiograph performed earlier today. PET/CT December [address] DOSE: 3636.57 mGy.cm TECHNIQUE: Axial images of the chest were obtained without IV contrast. Images were reviewed in the axial, sagittal, and coronal planes. IV contrast was not administered for this examination. Automat ed exposure control was utilized for the study. A dose lowering technique was utilized adhering to t he principles of ALARA. FINDINGS: The tip of the endotracheal tube is 5.8 cm above the gabino. Tip of nasogastric tube is wi thin the distal body of the stomach. There is moderate cardiomegaly and extensive coronary artery lise cification. There is no pericardial effusion. There is no pneumothorax. Trace left pleural effusion. There has been interval dominant of extensive multifocal consolidation within the lungs. The left low er lobe is nearly completely opacified with air bronchograms. Extensive left upper lobe and right low er lobe consolidation is present. There are additional scattered alveolar opacities within the lungs. No cavitation is present.. No central obstructing mass is identified. There has been significant pro gression of extensive lower cervical and thoracic lymphadenopathy since PET/CT of December 25, 2022. Inde x right axillary node measures 8.5 x 4.2 cm. Index left axillary node measures 4.4 x 4.1 cm. It previ ously measured 3.7 x 3.6 cm. No suspicious lesions within the bony thorax are noted. Upper abdominal adenopathy is also significantly progressed. Splenomegaly has increased. IMPRESSION: 1. Interval development of extensive multifocal consolidation, greatest within the left lung. Associa jess air bronchograms. The findings favor pneumonia or aspiration pneumonitis. No central obstructing mass. 2. Significant progression of lymphadenopathy since PET/CT of December 25, 2022. This is consistent with the history of lymphoma. 3. Tip of endotracheal tube 5.8 cm above the gabino. The tube could be advanced 3 cm. ACT 112: Negative or not required by law. Electronically signed by: Pito Curiel M.D. 03/12/2023 1:55 PM
--- NOTE | 2023-03-12 14:23 | Infectious Disease Progress Nt ---
Date of Service March 12, 2023 Assessment & Plan (1) Acute hypoxic respiratory failure: (2) Neutropenic fever: (3) Enterovirus infection: (4) Rhinovirus infection: (5) Immunoglobulin deficiency, acquired: Plan This is a 67-year-old male with past medical history of CLL with pancytopenia, recent spontaneous intrapelvic hemorrhage presents with worsening cough, fever and sob .He was admitted to [facility] from 01/30-02/02 for pneumonia and anjum and treated with Augmentin and dexamethasone for increasing bulky adenopathy His is at bedside and provides additional history. For the last 1 month he has been more fatigue with increased BL LE swelling . His chemotherapy has been on hold after diagnosed with spontaneous intrahepatic hematoma in 12/2022. He was diagnosed with Covid 19 on 02/20 and completed 5 days of Paxlovid. He denies requiring supplemental o2 or much respiratory symptoms at the time His and other family member werr also positive. On 03/05 he traveled to [place] to see a new oncologist to discuss new therapies. While in office, he dev eloped fever, and sob. He was sent the the Ed there for Cxr which showed pna. He received 1 dose Ceftriaxone and azithromycin and was discharged on Augmentin and azithromycin ( he and wanted to come back to [place]) . His symptoms worsened so he presented to [facility]. . In the Ed he had increased work of breathing and tachypnea, He was initially on bipap. Bio fire + covid, enterovirus. Procalcitonin 1.8. Cxr shows patchy bibasilar and left midlung airspace opacities and bilateral hilar lymphadenopathy progressed since 01/07/23. He is febrile and neutropenic. He was started on IV vanco/cefepime and azithromycin. Mrsa nares negative, so vancomycin discontinued. Bc and UC are sterile to date. ID consulted for neutropenic fever. On exam he is uncomfortable and short of breath. He denies any travel except to [place] last week for onc visit. He endorses LE swelling and cough. He denies chest pain, rash , LARA, pain at port site, rashes. He has anxiety related to his disease process and needing hospitalization He remains febrile with Tm, 39.1 WBc 28 k, plts 20k, ANC 0.37 Micro Bc 10/6 NGTD UC 10/6 sterile biofire +10/6 + covid 19, +enterovirus ( also + 11/2022) mrsa nares 03/08 negative BC 03/10 cons1/4 bottels Abx Vanco 03/07 Cefepime 03/07-03/11 Azith 03/07- ongoing meropenem 03/11-ongoing voricoanzole 03/11-ongoing # CLL #Acute hypoxic respiratory failure # Multifocal Pneumonia #Covid on 02/20- sp paxlovid. out of window for other covid therapies #Neutropenic fever # Chronic neutropenia #Repeat Enterovirus positivity on bifire ( likely from viral shedding since immunocompromised ) #Port in place He was diagnosed with Covid 19 , weeks ago and is out the window for addition Covid therapie. His test remains positive and is expected as he is im munocompromised. Additionally, his biofire is again positive for enterovirus.THis is likely secondary to viral shedding in an immunocompromised pt. It could also represents infection. There is no anti viral treatment for enterovirus. I think his current process is most likely secondary to a superimposed Bacterial infection post recent Covid 19 infection. He is neutropenic and febrile, so coverage for Pseudomonas is recommended. He is currently on Cefepime which should cover,if no Resistance. Mrsa coverage was started with iV vanco but discontinued as MRSA pcr is negative. He has no prior history of MDRO or fungal infections On xray there is evidence of multifocal pneumonia, there is also progression of bilateral hilar enlargement/? lymphadenopathy from 01/07/23 studies which may represent disease progression in setting of leukemia or reactive 2/2 infectious process. Repat Procal increased He is chronically neutropenic and is at risk for invasive fungal disease. He was not able to complete CT scan last night. He is on bipap, and remains persistantly febrile and short of breath. He is very anxious on exam. 03/12 intubated, ct lung with progressive lymphadenopathy multilob pna. Ct head no acute process. + . Moderate to severe mucosal thickening of the paranasal sinuses with air-fluid levels likely representing acute on chronic process. Ct abd with bulky adenopathy of ab/pelvis . + ANJUM Recommendation. bronch with BAL if able I will add back Vanco. He has a staph epi bact in 1/4 bottles - may be contaminant but he has a port and remains febrile. Pending repeat BC Continue meropenem 500g iv q8 Continue voriconazole He has CLL with prolonged neutropenia putting him a risk for invasive aspergillosis Continue azithromycin follow lfts abd abc FU Repeat BC ordered FU fungal cx Follow up legionella ag Follow up BD glucan ( fungitell) would continue covid isolation for now ( it has been 21 days but he continues to shed, pcr remains+ ) ID will continue to follow. Jaime Baeza MD, MPH Infectious Disease ID Connect [facility], ID Division Call [phone] with questions Admission and Anticipated Discharge Date Admission Date: March 07, 2023 Subjective This patient recommendation is based on a telemedicine consult request which was completed asynchronously through chart review and information provided by the primary physician. The patient was not seen or examined today. The evaluation is consultative in nature and all patient care and treatment decisions can either be accepted or rejected by the patient's primary hospital-based treating physician using their own independent medical judgment for their patient. Time Spent Reviewing Chart: 21 - [address] lung with progressive lyph multilob pna. ct head no acute process. + . Moderate to severe mucosal thickening of the paranasal sinuses with air-fluid levels likely representing acute on chronic process. Ct abd with bulky adenopathy of ab/pelvis . Results & Data Vital Signs (Past 12 Hours) Vital Signs Temp Pulse Resp BP Pulse Ox O2 Del Method O2 Flow Rate 03/12/23 11:56 94 H 20 96 03/12/23 09:00 107 H 17 99 Oxymask 15 03/12/23 09:00 123/62 03/12/23 08:00 106 H 16 99 03/12/23 08:00 125/66 03/12/23 07:00 109 H 17 98 03/12/23 07:00 119/57 L 03/12/23 06:00 112 H 33 H 94 03/12/23 06:00 128/67 03/12/23 05:00 112 H 19 95 03/12/23 05:00 39.3 C H 118/57 L 03/12/23 06:21 109 H 19 99 03/12/23 04:00 114 H 17 94 03/12/23 04:00 123/58 L 03/12/23 03:00 110 H 17 94 03/12/23 03:00 120/61 FiO2 03/12/23 11:56 100 03/12/23 09:00 03/12/23 09:00 03/12/23 08:00 03/12/23 08:00 03/12/23 07:00 03/12/23 07:00 03/12/23 06:00 03/12/23 06:00 03/12/23 05:00 03/12/23 05:00 03/12/23 06:21 70 03/12/23 04:00 03/12/23 04:00 03/12/23 03:00 03/12/23 03:00 Laboratory Results Laboratory Results - last 48 hr 03/10/23 03/10/23 03/10/23 13:00 15:37 20:21 WBC RBC Hgb POC Hgb Hct POC Hct MCV MCH MCHC RDW Std Deviation RDW Coeff of Leonela Plt Count MPV Absolute Nucleated RBC Nucleated RBC % (auto) Platelet Estimate Sample Site POC pH POC pCO2 POC pO2 POC HCO3 POC Total CO2 POC Base Excess ABG pH (Temp Correct) ABG pCO2 (Temp Corrct POC ABG pO2 at Pt Temp POC ABG O2 Sat Alphonso Test VBG pH VBG pCO2 VBG pO2 VBG HCO3 VBG O2 Saturation VBG Base Excess O2 Delivery Device POC O2 Rate POC FiO2 IPAP POC Sodium Sodium POC Potassium Potassium Chloride Carbon Dioxide Anion Gap BUN Creatinine Est Cr Clr Drug Dosing Est GFR ( Amer) Est GFR (Non-Af Amer) BUN/Creatinine Ratio Glucose POC Glucose 120 H 133 H Lactate Calcium Ionized Calcium Ammonia Urine Legionella Ag SEE NOTE Staphylococcus sp PCR mecA/C-Methicil Resis Gene Staph epidermidis (PCR) Bld Cult ID Panel PCR 03/10/23 03/11/23 03/11/23 22:30 04:44 04:44 WBC Cancelled RBC Cancelled Hgb Cancelled POC Hgb Hct Cancelled POC Hct MCV Cancelled MCH Cancelled MCHC Cancelled RDW Std Deviation Cancelled RDW Coeff of Leonela Cancelled Plt Count Cancelled MPV Cancelled Absolute Nucleated RBC Cancelled Nucleated RBC % (auto) Cancelled Platelet Estimate Cancelled Sample Site POC pH POC pCO2 POC pO2 POC HCO3 POC Total CO2 POC Base Excess ABG pH (Temp Correct) ABG pCO2 (Temp Corrct POC ABG pO2 at Pt Temp POC ABG O2 Sat Alphonso Test VBG pH VBG pCO2 VBG pO2 VBG HCO3 VBG O2 Saturation VBG Base Excess O2 Delivery Device POC O2 Rate POC FiO2 IPAP POC Sodium Sodium Cancelled POC Potassium Potassium Cancelled Chloride Cancelled Carbon Dioxide Cancelled Anion Gap Cancelled BUN Cancelled Creatinine Cancelled Est Cr Clr Drug Dosing Cancelled Est GFR ( Amer) Cancelled Est GFR (Non-Af Amer) Cancelled BUN/Creatinine Ratio Cancelled Glucose Cancelled POC Glucose Lactate Calcium Cancelled Ionized Calcium Ammonia Urine Legionella Ag Staphylococcus sp PCR DETECTED A mecA/C-Methicil Resis Gene DETECTED A Staph epidermidis (PCR) DETECTED A Bld Cult ID Panel PCR See PCR Comment 03/11/23 03/11/23 03/11/23 04:44 07:40 11:06 WBC RBC Hgb POC Hgb Hct POC Hct MCV MCH MCHC RDW Std Deviation RDW Coeff of Leonela Plt Count MPV Absolute Nucleated RBC Nucleated RBC % (auto) Platelet Estimate Sample Site POC pH POC pCO2 POC pO2 POC HCO3 POC Total CO2 POC Base Excess ABG pH (Temp Correct) ABG pCO2 (Temp Corrct POC ABG pO2 at Pt Temp POC ABG O2 Sat Alphonso Test VBG pH VBG pCO2 VBG pO2 VBG HCO3 VBG O2 Saturation VBG Base Excess O2 Delivery Device POC O2 Rate POC FiO2 IPAP POC Sodium Sodium POC Potassium Potassium Chloride Carbon Dioxide Anion Gap BUN Creatinine Est Cr Clr Drug Dosing Est GFR ( Amer) Est GFR (Non-Af Amer) BUN/Creatinine Ratio Glucose POC Glucose 142 H 224 H Lactate Calcium Ionized Calcium Cancelled Ammonia Urine Legionella Ag Staphylococcus sp PCR mecA/C-Methicil Resis Gene Staph epidermidis (PCR) Bld Cult ID Panel PCR 03/11/23 03/11/23 03/11/23 11:07 12:25 16:12 WBC RBC Hgb POC Hgb Hct POC Hct MCV MCH MCHC RDW Std Deviation RDW Coeff of Leonela Plt Count MPV Absolute Nucleated RBC Nucleated RBC % (auto) Platelet Estimate Sample Site POC pH POC pCO2 POC pO2 POC HCO3 POC Total CO2 POC Base Excess ABG pH (Temp Correct) ABG pCO2 (Temp Corrct POC ABG pO2 at Pt Temp POC ABG O2 Sat Alphonso Test VBG pH VBG pCO2 VBG pO2 VBG HCO3 VBG O2 Saturation VBG Base Excess O2 Delivery Device POC O2 Rate POC FiO2 IPAP POC Sodium Sodium POC Potassium Potassium Chloride Carbon Dioxide Anion Gap BUN Creatinine 2.11 H Est Cr Clr Drug Dosing 43.2 Est GFR ( Amer) 36.7 Est GFR (Non-Af Amer) 31.7 BUN/Creatinine Ratio Glucose POC Glucose 232 H 197 H Lactate Calcium Ionized Calcium Ammonia Urine Legionella Ag Staphylococcus sp PCR mecA/C-Methicil Resis Gene Staph epidermidis (PCR) Bld Cult ID Panel PCR 03/11/23 03/12/23 03/12/23 20:06 06:12 06:51 WBC 26.09 H RBC 2.30 L Hgb 7.4 L POC Hgb 7.1 L Hct 22.2 L POC Hct 21 L MCV 96.5 MCH 32.2 MCHC 33.3 RDW Std Deviation 83.7 H RDW Coeff of Leonela 24.1 H Plt Count 20 L* MPV 12.5 H Absolute Nucleated RBC Nucleated RBC % (auto) Platelet Estimate Sample Site L Radial POC pH 7.36 POC pCO2 39 POC pO2 176 H POC HCO3 22 POC Total CO2 23 L POC Base Excess -4.0 ABG pH (Temp Correct) 7.323 L ABG pCO2 (Temp Corrct 43 POC ABG pO2 at Pt Temp 189 POC ABG O2 Sat 100.0 H Alphonso Test Pass VBG pH VBG pCO2 VBG pO2 VBG HCO3 VBG O2 Saturation VBG Base Excess O2 Delivery Device BIPAP POC O2 Rate 14 POC FiO2 100 IPAP 15 POC Sodium 134 L Sodium POC Potassium 5.3 H Potassium Chloride Carbon Dioxide Anion Gap BUN Creatinine Est Cr Clr Drug Dosing Est GFR ( Amer) Est GFR (Non-Af Amer) BUN/Creatinine Ratio Glucose POC Glucose 232 H Lactate Calcium Ionized Calcium Ammonia Urine Legionella Ag Staphylococcus sp PCR mecA/C-Methicil Resis Gene Staph epidermidis (PCR) Bld Cult ID Panel PCR 03/12/23 03/12/23 03/12/23 06:51 06:51 09:06 WBC RBC Hgb POC Hgb Hct POC Hct MCV MCH MCHC RDW Std Deviation RDW Coeff of Leonela Plt Count MPV Absolute Nucleated RBC Nucleated RBC % (auto) Platelet Estimate Sample Site POC pH POC pCO2 POC pO2 POC HCO3 POC Total CO2 POC Base Excess ABG pH (Temp Correct) ABG pCO2 (Temp Corrct POC ABG pO2 at Pt Temp POC ABG O2 Sat Alphonso Test VBG pH VBG pCO2 VBG pO2 VBG HCO3 VBG O2 Saturation VBG Base Excess O2 Delivery Device POC O2 Rate POC FiO2 IPAP POC Sodium Sodium 135 L POC Potassium Potassium 5.4 H Chloride 104 Carbon Dioxide 23 Anion Gap 8 BUN 57 H Creatinine 2.72 H D Est Cr Clr Drug Dosing 33.1 Est GFR ( Amer) 27.0 Est GFR (Non-Af Amer) 23.3 BUN/Creatinine Ratio 21.0 H Glucose 152 H POC Glucose 167 H Lactate 0.7 Calcium 8.1 L Ionized Calcium Ammonia Urine Legionella Ag Staphylococcus sp PCR mecA/C-Methicil Resis Gene Staph epidermidis (PCR) Bld Cult ID Panel PCR 03/12/23 03/12/23 03/12/23 10:16 10:16 12:17 WBC RBC Hgb POC Hgb Hct POC Hct MCV MCH MCHC RDW Std Deviation RDW Coeff of Leonela Plt Count MPV Absolute Nucleated RBC Nucleated RBC % (auto) Platelet Estimate Sample Site POC pH POC pCO2 POC pO2 POC HCO3 POC Total CO2 POC Base Excess ABG pH (Temp Correct) ABG pCO2 (Temp Corrct POC ABG pO2 at Pt Temp POC ABG O2 Sat Alphonso Test VBG pH 7.24 L VBG pCO2 48 VBG pO2 66 VBG HCO3 21 VBG O2 Saturation 93.2 VBG Base Excess -6.9 O2 Delivery Device POC O2 Rate POC FiO2 IPAP POC Sodium Sodium POC Potassium Potassium Chloride Carbon Dioxide Anion Gap BUN Creatinine Est Cr Clr Drug Dosing Est GFR ( Amer) Est GFR (Non-Af Amer) BUN/Creatinine Ratio Glucose POC Glucose 187 H Lactate Calcium Ionized Calcium Ammonia 42.0 Urine Legionella Ag Staphylococcus sp PCR mecA/C-Methicil Resis Gene Staph epidermidis (PCR) Bld Cult ID Panel PCR Diagnostic Findings Microbiology 03/10/23 13:08 Blood Aerobic Blood Culture - Preliminary No growth in Aerobic bottle after 48 hours. 03/10/23 13:08 Blood Anaerobic Blood Culture - Final Chest X-Ray 03/10/23 15:32 XR chest 1V portable HISTORY: 67 years-old Male hypoxic resp failure acute hypoxia COMPARISON: Chest radiograph studies 03/07/2023 and 01/07/2023, PET/CT 12/25/2022. TECHNIQUE: AP view of the chest FINDINGS: Cardiac silhouette is enlarged. Left subclavian [id number] catheter. Bilateral hilar prominence redemonstrated. There are patchy ill-defined bibasilar and left midlung predominant opacities. Mild right hemidiaphragm elevation. No pneumothorax or large pleural effusion. Degenerative changes of the shoulders and spine. IMPRESSION: 1. Progressive airspace opacities, most pronounced in the left midlung and right lung base suspicious for multifocal pneumonia. 2. Bilateral hilar enlargement is again noted which likely represents underlying lymphadenopathy and may be related to disease progression in this patient with known leukemia. Findings are progressed compared to 01/07/2023. Follow-up with oncology as needed. ACT 112: Negative or not required by law. The above report was generated using voice recognition software. It may contain grammatical, syntax or spelling errors. Electronically signed by: Benedict Anderson M.D. 03/10/2023 4:41 PM Chest X-Ray 03/12/23 11:50 XR chest 1V portable HISTORY: Respiratory failure. intubation COMPARISON: Chest 03/10/2023. FINDINGS: The endotracheal tube terminates 8.6 cm from the gabino. This should be advanced by approximately 4 to 5 cm. Nasogastric tube terminates below the diaphragm. The tip is not included on this study. A left-sided Port-A-Cath terminates in the SVC. This remains unchanged. There are low lung volumes. No pneumothorax. The cardiac silhouette remains enlarged. Suspect small bilateral pleural effusions. Bilateral mid to lower lung zone airspace opacities persist. This is most pronounced within the left midlung zone. Bilateral mediastinal and hilar prominence again noted. This could represent underlying lymphadenopathy. IMPRESSION: 1. The endotracheal tube terminates 8.6 cm from the gabino. This should be advanced by approximately 4 to 5 cm. 2. The nasogastric tube terminates below the diaphragm. 3. Bilateral airspace opacities persist. 4. Mediastinal and hilar fullness suggests underlying lymphadenopathy. ACT 112: Negative or not required by law. Electronically signed by: Eron Abdalla M.D. 03/12/2023 12:44 PM KUB X-Ray 03/12/23 11:51 KUB CLINICAL HISTORY: OG placement COMPARISON STUDY: CT of the abdomen and pelvis January 30, 2023. FINDINGS: The tip of the nasogastric tube is within the distal body of the stomach. Visualized bowel gas pattern is unremarkable. IMPRESSION: Tip of nasogastric tube within the distal body of the stomach. ACT 112: Negative or not required by law. Electronically signed by: Pito Curiel M.D. 03/12/2023 12:33 PM Abdomen/Pelvis CT 03/12/23 12:[address] WITHOUT CONTRAST CT DOSE: HISTORY: fever, acute renal failure TECHNIQUE: Multiaxial CT images of the abdomen and pelvis were performed without contrast. A dose lowering technique was utilized adhering to the principles of ALARA. COMPARISON STUDY: Abdomen and pelvis CT 01/30/2023. FINDINGS: Bibasilar consolidation most pronounced on the left likely represents a pneumonia. This is better appreciated on the same day chest CT. Partially visualized lymphadenopathy within the lower chest again noted. Nasogastric tube terminates in the distal stomach. No pneumoperitoneum. No pneumatosis. No acute fractures identified. Small fat-containing umbilical hernia again noted. There is a large left lower quadrant parastomal hernia containing multiple loops of nonobstructed bowel. This remains unchanged. There is moderate body wall edema which has progressed. The bladder is decompressed by Marin catheter. Mass effect along the bladder from the pelvic lymphadenopathy has slightly improved. Hyperdense material within the gallbladder may represent sludge or small stones. This remains unchanged. The unenhanced liver and adrenal glands are unremarkable. No hydronephrosis. Moderate bilateral perinephric edema has slightly progressed. The spleen is enlarged measuring 16 cm in length. This has slightly progressed. The unenhanced pancreas appears unremarkable. Normal caliber abdominal aorta. Trace pelvic free fluid. Suboptimal evaluation for bowel pathology due to the lack of intravenous and oral contrast. However, no evidence for a bowel obstruction. Questionable thickening of the ascending colon is likely due to the patient's underlying edema. No definite bowel wall thickening identified. Bulky lymphadenopathy seen throughout the abdomen and pelvis is similar to the prior study. Small amount of residual right extraperitoneal hemorrhage adjacent to Large right pelvic lymph node has improved. This is primarily low density and therefore favors old hemorrhage. No evidence for acute hemorrhage at this time. IMPRESSION: 1. Consolidative airspace opacities within the lung bases are better appreciated on the same day chest CT. This likely represents a pneumonia. 2. Bulky lymphadenopathy within the abdomen and pelvis persists. This similar to the prior study. 3. Moderate body wall edema has progressed. 4. Splenomegaly has slightly progressed. 5. Questionable thickening of the ascending colon is likely due to the patient's edematous state. Otherwise, no definite bowel wall thickening or obstruction. 6. Near-complete resolution of the small amount of chronic residual hemorrhage within the right pelvic sidewall. No progressive or acute retroperitoneal hemorrhage identified. 7. Additional findings as described above. ACT 112: Negative or not required by law. Electronically signed by: Eron Abdalla M.D. 03/12/2023 1:[address] 03/12/23 12:51 CT head/brain wo con CLINICAL HISTORY: 67 years-old Male with ALOC. Acutely altered mental status TECHNIQUE: Multiple axial CT images of the head were obtained without contrast. A dose lowering technique was utilized adhering to the principles of ALARA. COMPARISON: Brain MRI 02/23/2016 FINDINGS: No acute intracranial hemorrhage, midline shift, intracranial mass, hydrocephalus, territorial ischemia or abnormal extra-axial collection. Mild progression of the chronic microvascular ischemic disease. Chronic appearing left periventricular lacunar infarct. Dense cerebral vascular calcifications. The calvarium is intact. Right-sided lens repair. Small right mastoid effusion. Moderate to severe mucosal thickening of the paranasal sinuses with air-fluid levels likely representing acute on chronic process. IMPRESSION: No acute intracranial abnormality. ACT 112: Negative or not required by law. The above report was generated using voice recognition software. It may contain grammatical, syntax or spelling errors. Electronically signed by: Benedict Anderson M.D. 03/12/2023 1:[address] 03/12/23 12:55 CT OF THE CHEST WITHOUT IV CONTRAST CLINICAL HISTORY: Hypoxia. CLL. COMPARISON STUDY: Chest CT October 16, 2022. Chest radiograph performed earlier today. PET/CT December 25, 2022. CT DOSE: 3636.57 mGy.cm TECHNIQUE: Axial images of the chest were obtained without IV contrast. Images were reviewed in the axial, sagittal, and coronal planes. IV contrast was not administered for this examination. Automated exposure control was utilized for the study. A dose lowering technique was utilized adhering to the principles of ALARA. FINDINGS: The tip of the endotracheal tube is 5.8 cm above the gabino. Tip of nasogastric tube is within the distal body of the stomach. There is moderate cardiomegaly and extensive coronary artery calcification. There is no pericardial effusion. There is no pneumothorax. Trace left pleural effusion. There has been interval dominant of extensive multifocal consolidation within the lungs. The left lower lobe is nearly completely opacified with air bronchograms. Extensive left upper lobe and right lower lobe consolidation is present. There are additional scattered alveolar opacities within the lungs. No cavitation is present.. No central obstructing mass is identified. There has been significant progression of extensive lower cervical and thoracic lymphadenopathy since PET/CT of December 25, 2022. Index right axillary node measures 8.5 x 4.2 cm. Index left axillary node measures 4.4 x 4.1 cm. It previously measured 3.7 x 3.6 cm. No suspicious lesions within the bony thorax are noted. Upper abdominal adenopathy is also significantly progressed. Splenomegaly has increased. IMPRESSION: 1. Interval development of extensive multifocal consolidation, greatest within the left lung. Associated air bronchograms. The findings favor pneumonia or aspiration pneumonitis. No central obstructing mass. 2. Significant progression of lymphadenopathy since PET/CT of December 25, 2022. This is consistent with the history of lymphoma. 3. Tip of endotracheal tube 5.8 cm above the gabino. The tube could be advanced 3 cm. ACT 112: Negative or not required by law. Electronically signed by: Pito Curiel M.D. 03/12/2023 1:55 PM 03/10/23 22:30 Blood Anaerobic Blood Culture - Preliminary No growth in Anaerobic bottle after 24 hours. 03/10/23 13:08 Blood Fungal Smear - Final 03/07/23 17:23 Blood Aerobic Blood Culture - Preliminary No growth in Aerobic bottle after 48 hours. 03/07/23 17:23 Blood Anaerobic Blood Culture - Preliminary No growth in Anaerobic bottle after 48 hours. 03/07/23 19:05 Urine,Clean Catch Urine Culture - Final No growth - less than 1,000 colonies/mL.
[2023-03-12] MEDS ORDERED: VANCOMYCIN CONSULT ACTIVE PRN (14:33)
--- NOTE | 2023-03-12 15:07 | XRay Report ---
XR chest 1V portable HISTORY: 67 years-old Male central line placement right IJ status post placement of a right IJ centr al venous catheter COMPARISON: Chest CT of same day TECHNIQUE: AP view of the chest FINDINGS: Cardiac silhouette is enlarged. Endotracheal tube overlies the midline, approximately 7.4 cm superior to the gabino. A right IJ central venous catheter is noted in the expected location of the upper SVC . Left subclavian Fohunu-m-Tqtj catheter is noted in the mid aspect of the SVC. Distal tip enteric tu be projects inferiorly outside the oyhlj-vn-[id number]. Distal abdominal lymphadenopathy with mixed interstitial and alveolar opacities noted. Dense airspace consolidation within the lung bases and left midlung are again seen. Small pleural effusions. Degene rative changes of the shoulders and spine. IMPRESSION: 1. Lines and tubes as above. 2. No pneumothorax. 3. Persistent mixed interstitial and alveolar opacities suggestive of pneumonia with small pleural ef fusions. 4. Hilar lymphadenopathy. ACT 112: Negative or not required by law. The above report was generated using voice recognition software. It may contain grammatical, syntax o r spelling errors. Electronically signed by: Benedict Anderson M.D. 03/12/2023 3:05 PM
--- NOTE | 2023-03-12 15:23 | Pharmacy Report ---
Pharmacy PK ABX Note - Date of Service March 12, 2023 - Assessment and Plan Laboratory Tests 03/10/23 03/11/23 03/12/23 03:53 12:25 06:51 Creatinine 1.82 H 2.11 H 2.72 H D Assessment 67 year old M receiving meropenem, voriconazole, and azithromycin for treatment of pneumonia. Now adding Vancomycin back (had received 03/07-03/08), for 1/4 blood cultures positive for Staph Epi and persistent fevers with port in place. Repeat blood cultures today. History of CLL, febrile/neutropenic. MRSA nasal (-). CKD. Will give loading dose and check random level in morning, SCr elevated significantly today. Plan Vancomycin * Loading dose: 2000 mg IV x 1 * Random level with AM labs Pharmacy will continue to follow and will adjust dose/frequency as necessary. Thank you.
[2023-03-12] MEDS ORDERED: VANCOMYCIN HCL 2,000 MG in SODIUM CHLORIDE 0.9% 500 ML IV ONE (15:30)
--- NOTE | 2023-03-12 16:32 | Hospitalist Progress Note ---
Date of Service March 12, 2023 Assessment & Plan (1) Pneumonia: Plan: 67yo male with CLL, neutropenia (ANC 0.7), thrombocytopenia and anemia presenting with fever, cough, SOB. patient was initially on BIPAP for increased work of breathing. Bio[employer] panel with +Covid-19 as well as Enterovirus. Possible bacterial component as well given elevation of Procalcitonin to 1.8 Immunocompromised host with neutropenic fever Started on broad-spectrum antibiotics. MRSA Swab negative Infectious disease on board. Broaden the antibiotic coverage further. On meropenem. Voriconazole started by infectious disease Blood culture 1 out of 4 bottles growing staph. Likely contaminant. Repeat blood cultures ordered by ID. ID recommends monitoring QTc on voriconazole. Order daily EKGs. LFTs ordered. follow up on fungal culture, Legionella, BD glucan CT chest done today. Shows extensive multifocal consolidation. increased oxygen needs increased respiratory distress today Collection Administrator on board. Spoke to Dr. Brady Intubated 03/12 Bronchoscopy done 03/12 (2) Neutropenic fever: Plan: covered with broad-spectrum antibiotics. Hemodynamically stable Oncology on board infectious disease on board Spoke to on the phone. she does not want the patient to be transferred to [place] at this time. (3) Acute hypoxic respiratory failure: Plan: Worse today Intubated 03/12 Bronchoscopy done 03/12 CT chest showed multifocal pneumonia, worse in the left Collection Administrator on board (4) COVID-19: Plan: Patient diagnosed with Covid on 02/20/23. He was treated with Paxlovid. -Maintain isolation precautions for now - patient immunocompromised with underlying malignancy - prolonged isolation recommended 20 days -Infection control for removal of Covid isolation precautions (5) Chronic kidney disease: Plan: stage III BUN and Cr Stable. Patient follows with Nephrology. Patient refused a.m. labs -Continue Allopurinol 200mg po BID if able to take p.o. -Avoid nephrotoxic agents -Renal dosing where needed (6) CLL (chronic lymphocytic leukemia): Plan: Patient with chronic anemia, thrombocytopenia. No active bleeding -Monitor H/H - transfuse for Hgb <7 -Maintain Neutropenic isolation precautions Pancytopenia likely secondary to CLL or chemotherapy Appreciate oncology input (7) Enterovirus infection: Plan: continue supportive treatment (8) Acute diastolic CHF (congestive heart failure): Plan: patient appeared to be volume overloaded and responded to A few doses of Lasix during this hospital stay Echocardiogram showed preserved EF (9) T2DM (type 2 diabetes mellitus): Plan: Patient with hypoglycemia upon arrival. Given D50 with improvement. Possibly secondary to underlying infection as well as decreased oral intake -ISS as needed (10) Elevated troponin: Plan: Patient with minimal elevation of troponin. 28.5 --> 31.3. No acute ischemic changes on EKG. -Trend troponin - echo showed no wall motion abnormalities or depressed EF (11) Hypothyroidism: Plan: Chronic -Continue Synthroid if able to take p.o. (12) Sepsis: Present on Admission?: Yes Plan F/E/N - Saline lock. Monitor electrolytes and replete as needed. CC diet as tolerated Ppx - SCDs (Lovenox discontinued due to thrombocytopenia and anemia) Code - Full Admission and Anticipated Discharge Date Admission Date: March 07, 2023 Subjective I was called by the nurse for altered mental status. Patient was not keeping his BiPAP mask on. Was on 15 L oxy mask saturating between 89 to 92%. I came at the bedside immediately to evaluate the patient. He was altered. I called his on the phone and talk to her about the potential for intubation. She stated that she is not opposed to intubation and was on her way to the hospital. I also informed the pin drafter operator about the likelihood of the patient needing to be intubated. Once the was here, I came down to speak to her. Decision was made to intubate the patient. The pin drafter operator was in the room intubating him. Review of Systems Review of Systems: All systems reviewed & are unremarkable except as noted in Subjective Physical Exam Physical Exam: General: Drowsy. Altered. Moving arms purposelessly. Not able to hold a conversation. Oxy mask on. Heart: S1, S2/regular rate and rhythm, no murmur rubs or gallops Lungs: Bilateral crackles. Increased effort Abdomen: Soft/nontender/nondistended. No hepatosplenomegaly Extremities: No clubbing/cyanosis. 1+ pitting bilateral edema Behavior: Appropriate, cooperative Results & Data Results & Data Vital Signs (Past 12 Hours) Vital Signs Temp Pulse Resp BP Pulse Ox O2 Del Method O2 Flow Rate 03/12/23 11:56 94 H 20 96 03/12/23 09:00 107 H 17 99 Oxymask 15 03/12/23 09:00 123/62 03/12/23 08:00 106 H 16 99 03/12/23 08:00 125/66 03/12/23 07:00 109 H 17 98 03/12/23 07:00 119/57 L 03/12/23 06:00 112 H 33 H 94 03/12/23 06:00 128/67 03/12/23 05:00 112 H 19 95 03/12/23 05:00 39.3 C H 118/57 L 03/12/23 06:21 109 H 19 99 FiO2 03/12/23 11:56 100 03/12/23 09:00 03/12/23 09:00 03/12/23 08:00 03/12/23 08:00 03/12/23 07:00 03/12/23 07:00 03/12/23 06:00 03/12/23 06:00 03/12/23 05:00 03/12/23 05:00 03/12/23 06:21 70 Laboratory Results Abnormal lab results 03/10/23 03/11/23 03/12/23 Range/Units 22:30 20:06 06:12 WBC (4.8-10.8) K/ul RBC (4.70-6.10) M/uL Hgb (14.0-18.0) g/dl POC Hgb 7.1 L (14.0-18.0) g/dl Hct (42.0-52.0) % POC Hct 21 L (42-52) % RDW Std Deviation (36.4-46.3) fL RDW Coeff of Leonela (11.5-14.5) % Plt Count (130-400) K/uL MPV (9.4-12.4) fL POC pO2 176 H (80-95) mmHg POC Total CO2 23 L (24-31) mmol/L ABG pH (Temp Correct) 7.323 L (7.35-7.45) POC ABG O2 Sat 100.0 H (90-95) % VBG pH (7.36-7.41) POC Sodium 134 L (135-144) mmol/L Sodium (136-145) mmol/L POC Potassium 5.3 H (3.3-5.0) mmol/L Potassium (3.5-5.1) mmol/L BUN (6-23) mg/dl Creatinine (0.6-1.4) mg/dl BUN/Creatinine Ratio (10-20) Glucose (70-99(Fasting)) mg/dl POC Glucose 232 H (70-99) mg/dl Calcium (8.6-10.3) mg/dl Staphylococcus sp PCR DETECTED A (NotDetected) mecA/C-Methicil Resis Gene DETECTED A (NotDetected) Staph epidermidis (PCR) DETECTED A (NotDetected) 03/12/23 03/12/23 03/12/23 Range/Units 06:51 06:51 09:06 WBC 26.09 H (4.8-10.8) K/ul RBC 2.30 L (4.70-6.10) M/uL Hgb 7.4 L (14.0-18.0) g/dl POC Hgb (14.0-18.0) g/dl Hct 22.2 L (42.0-52.0) % POC Hct (42-52) % RDW Std Deviation 83.7 H (36.4-46.3) fL RDW Coeff of Leonela 24.1 H (11.5-14.5) % Plt Count 20 L* (130-400) K/uL MPV 12.5 H (9.4-12.4) fL POC pO2 (80-95) mmHg POC Total CO2 (24-31) mmol/L ABG pH (Temp Correct) (7.35-7.45) POC ABG O2 Sat (90-95) % VBG pH (7.36-7.41) POC Sodium (135-144) mmol/L Sodium 135 L (136-145) mmol/L POC Potassium (3.3-5.0) mmol/L Potassium 5.4 H (3.5-5.1) mmol/L BUN 57 H (6-23) mg/dl Creatinine 2.72 H D (0.6-1.4) mg/dl BUN/Creatinine Ratio 21.0 H (10-20) Glucose 152 H (70-99(Fasting)) mg/dl POC Glucose 167 H (70-99) mg/dl Calcium 8.1 L (8.6-10.3) mg/dl Staphylococcus sp PCR (NotDetected) mecA/C-Methicil Resis Gene (NotDetected) Staph epidermidis (PCR) (NotDetected) 03/12/23 03/12/23 Range/Units 10:16 12:17 WBC (4.8-10.8) K/ul RBC (4.70-6.10) M/uL Hgb (14.0-18.0) g/dl POC Hgb (14.0-18.0) g/dl Hct (42.0-52.0) % POC Hct (42-52) % RDW Std Deviation (36.4-46.3) fL RDW Coeff of Leonela (11.5-14.5) % Plt Count (130-400) K/uL MPV (9.4-12.4) fL POC pO2 (80-95) mmHg POC Total CO2 (24-31) mmol/L ABG pH (Temp Correct) (7.35-7.45) POC ABG O2 Sat (90-95) % VBG pH 7.24 L (7.36-7.41) POC Sodium (135-144) mmol/L Sodium (136-145) mmol/L POC Potassium (3.3-5.0) mmol/L Potassium (3.5-5.1) mmol/L BUN (6-23) mg/dl Creatinine (0.6-1.4) mg/dl BUN/Creatinine Ratio (10-20) Glucose (70-99(Fasting)) mg/dl POC Glucose 187 H (70-99) mg/dl Calcium (8.6-10.3) mg/dl Staphylococcus sp PCR (NotDetected) mecA/C-Methicil Resis Gene (NotDetected) Staph epidermidis (PCR) (NotDetected) Diagnostic Findings Chest X-Ray 03/12/23 11:50 XR chest 1V portable HISTORY: Respiratory failure. intubation COMPARISON: Chest 03/10/2023. FINDINGS: The endotracheal tube terminates 8.6 cm from the gabino. This should be advanced by approximately 4 to 5 cm. Nasogastric tube terminates below the diaphragm. The tip is not included on this study. A left-sided Port-A-Cath terminates in the SVC. This remains unchanged. There are low lung volumes. No pneumothorax. The cardiac silhouette remains enlarged. Suspect small bilateral pleural effusions. Bilateral mid to lower lung zone airspace opacities persist. This is most pronounced within the left midlung zone. Bilateral mediastinal and hilar prominence again noted. This could represent underlying lymphadenopathy. IMPRESSION: 1. The endotracheal tube terminates 8.6 cm from the gabino. This should be advanced by approximately 4 to 5 cm. 2. The nasogastric tube terminates below the diaphragm. 3. Bilateral airspace opacities persist. 4. Mediastinal and hilar fullness suggests underlying lymphadenopathy. ACT 112: Negative or not required by law. Electronically signed by: Eron Abdalla M.D. 03/12/2023 12:44 PM KUB X-Ray 03/12/23 11:51 KUB CLINICAL HISTORY: OG placement COMPARISON STUDY: CT of the abdomen and pelvis January 30, 2023. FINDINGS: The tip of the nasogastric tube is within the distal body of the stomach. Visualized bowel gas pattern is unremarkable. IMPRESSION: Tip of nasogastric tube within the distal body of the stomach. ACT 112: Negative or not required by law. Electronically signed by: Pito Curiel M.D. 03/12/2023 12:33 PM Abdomen/Pelvis CT 03/12/23 12:[address] WITHOUT CONTRAST CT DOSE: HISTORY: fever, acute renal failure TECHNIQUE: Multiaxial CT images of the abdomen and pelvis were performed without contrast. A dose lowering technique was utilized adhering to the principles of ALARA. COMPARISON STUDY: Abdomen and pelvis CT 01/30/2023. FINDINGS: Bibasilar consolidation most pronounced on the left likely represents a pneumonia. This is better appreciated on the same day chest CT. Partially visualized lymphadenopathy within the lower chest again noted. Nasogastric tube terminates in the distal stomach. No pneumoperitoneum. No pneumatosis. No acute fractures identified. Small fat-containing umbilical hernia again noted. There is a large left lower quadrant parastomal hernia containing multiple loops of nonobstructed bowel. This remains unchanged. There is moderate body wall edema which has progressed. The bladder is decompressed by Marin catheter. Mass effect along the bladder from the pelvic lymphadenopathy has slightly improved. Hyperdense material within the gallbladder may represent sludge or small stones. This remains unchanged. The unenhanced liver and adrenal glands are unremarkable. No hydronephrosis. Moderate bilateral perinephric edema has slightly progressed. The spleen is enlarged measuring 16 cm in length. This has slightly progressed. The unenhanced pancreas appears unremarkable. Normal caliber abdominal aorta. Trace pelvic free fluid. Suboptimal evaluation for bowel pathology due to the lack of intravenous and oral contrast. However, no evidence for a bowel obstruction. Questionable thickening of the ascending colon is likely due to the patient's underlying edema. No definite bowel wall thickening identified. Bulky lymphadenopathy seen throughout the abdomen and pelvis is similar to the prior study. Small amount of residual right extraperitoneal hemorrhage adjacent to Large right pelvic lymph node has improved. This is primarily low density and therefore favors old hemorrhage. No evidence for acute hemorrhage at this time. IMPRESSION: 1. Consolidative airspace opacities within the lung bases are better appreciated on the same day chest CT. This likely represents a pneumonia. 2. Bulky lymphadenopathy within the abdomen and pelvis persists. This similar to the prior study. 3. Moderate body wall edema has progressed. 4. Splenomegaly has slightly progressed. 5. Questionable thickening of the ascending colon is likely due to the patient's edematous state. Otherwise, no definite bowel wall thickening or obstruction. 6. Near-complete resolution of the small amount of chronic residual hemorrhage within the right pelvic sidewall. No progressive or acute retroperitoneal hemorrhage identified. 7. Additional findings as described above. ACT 112: Negative or not required by law. Electronically signed by: Eron Abdalla M.D. 03/12/2023 1:[address] 03/12/23 12:51 CT head/brain wo con CLINICAL HISTORY: 67 years-old Male with ALOC. Acutely altered mental status TECHNIQUE: Multiple axial CT images of the head were obtained without contrast. A dose lowering technique was utilized adhering to the principles of ALARA. COMPARISON: Brain MRI 02/23/2016 FINDINGS: No acute intracranial hemorrhage, midline shift, intracranial mass, hydrocephalus, territorial ischemia or abnormal extra-axial collection. Mild progression of the chronic microvascular ischemic disease. Chronic appearing left periventricular lacunar infarct. Dense cerebral vascular calcifications. The calvarium is intact. Right-sided lens repair. Small right mastoid effusion. Moderate to severe mucosal thickening of the paranasal sinuses with air-fluid levels likely representing acute on chronic process. IMPRESSION: No acute intracranial abnormality. ACT 112: Negative or not required by law. The above report was generated using voice recognition software. It may contain grammatical, syntax or spelling errors. Electronically signed by: Benedict Anderson M.D. 03/12/2023 1:[address] 03/12/23 12:55 CT OF THE CHEST WITHOUT IV CONTRAST CLINICAL HISTORY: Hypoxia. CLL. COMPARISON STUDY: Chest CT October 16, 2022. Chest radiograph performed earlier today. PET/CT December 25, 2022. CT DOSE: 3636.57 mGy.cm TECHNIQUE: Axial images of the chest were obtained without IV contrast. Images were reviewed in the axial, sagittal, and coronal planes. IV contrast was not administered for this examination. Automated exposure control was utilized for the study. A dose lowering technique was utilized adhering to the principles of ALARA. FINDINGS: The tip of the endotracheal tube is 5.8 cm above the gabino. Tip of nasogastric tube is within the distal body of the stomach. There is moderate cardiomegaly and extensive coronary artery calcification. There is no pericardial effusion. There is no pneumothorax. Trace left pleural effusion. There has been interval dominant of extensive multifocal consolidation within the lungs. The left lower lobe is nearly completely opacified with air bronchograms. Extensive left upper lobe and right lower lobe consolidation is present. There are additional scattered alveolar opacities within the lungs. No cavitation is present.. No central obstructing mass is identified. There has been significant progression of extensive lower cervical and thoracic lymphadenopathy since PET/CT of December 25, 2022. Index right axillary node measures 8.5 x 4.2 cm. Index left axillary node measures 4.4 x 4.1 cm. It previously measured 3.7 x 3.6 cm. No suspicious lesions within the bony thorax are noted. Upper abdominal adenopathy is also significantly progressed. Splenomegaly has increased. IMPRESSION: 1. Interval development of extensive multifocal consolidation, greatest within the left lung. Associated air bronchograms. The findings favor pneumonia or aspiration pneumonitis. No central obstructing mass. 2. Significant progression of lymphadenopathy since PET/CT of December 25, 2022. This is consistent with the history of lymphoma. 3. Tip of endotracheal tube 5.8 cm above the gabino. The tube could be advanced 3 cm. ACT 112: Negative or not required by law. Electronically signed by: Pito Curiel M.D. 03/12/2023 1:55 PM Chest X-Ray 03/12/23 14:05 XR chest 1V portable HISTORY: 67 years-old Male central line placement right IJ status post placement of a right IJ central venous catheter COMPARISON: Chest CT of same day TECHNIQUE: AP view of the chest FINDINGS: Cardiac silhouette is enlarged. Endotracheal tube overlies the midline, approximately 7.4 cm superior to the gabino. A right IJ central venous catheter is noted in the expected location of the upper SVC. Left subclavian Qdpssb-p-Grwz catheter is noted in the mid aspect of the SVC. Distal tip enteric tube projects inferiorly outside the [id number]. Distal abdominal lymphadenopathy with mixed interstitial and alveolar opacities noted. Dense airspace consolidation within the lung bases and left midlung are again seen. Small pleural effusions. Degenerative changes of the shoulders and spine. IMPRESSION: 1. Lines and tubes as above. 2. No pneumothorax. 3. Persistent mixed interstitial and alveolar opacities suggestive of pneumonia with small pleural effusions. 4. Hilar lymphadenopathy. ACT 112: Negative or not required by law. The above report was generated using voice recognition software. It may contain grammatical, syntax or spelling errors. Electronically signed by: Benedict Anderson M.D. 03/12/2023 3:05 PM PG Care Time/CCT Total # of Minutes Spent Total Time Spent with Patient: Total time spent is greater than 50% in coordination of care (as documented) at patient's floor/unit and/or counseling patient: Coding Level of Care Code 55049 SUB INP/OBS CARE 3/50MIN Diagnoses Pneumonia J18.9 Neutropenic fever D70.9; R50.81 Acute hypoxic respiratory failure J96.01 COVID-19 U07.1 Chronic kidney disease N18.9 CLL (chronic lymphocytic leukemia) C91.90 Enterovirus infection B34.1 Acute diastolic CHF (congestive heart failure) I50.31 T2DM (type 2 diabetes mellitus) E11.9 Elevated troponin R79.89 Hypothyroidism E03.9 Sepsis A41.9
[2023-03-12] MEDS ORDERED: TUBE FEEDING WATER FLUSH OG SCH (17:15)
[2023-03-12] MEDS ORDERED: PLASMA-LYTE A 1,000 ML IV ONE (17:29)
[2023-03-12] MEDS ORDERED: PLASMA-LYTE A 1,000 ML IV SCH (17:30)
[2023-03-12] MEDS: PEPTAMEN INTENSE VHP 1.0 CAL 1,000 ML BAG OG SCH (17:42)
[2023-03-12] MEDS: AZITHROMYCIN 250 MG in DEXTROSE 5% 250 ML IV SCH (17:48)
--- NOTE | 2023-03-12 18:29 | Nephrology Consultation ---
Date of Consultation March 12, 2023 Assessment & Plan (1) Acute hyperkalemia: Patient's family declined transfer to a facility able to provide 24 hour dialysis. Hold tube feeds pending improvement in serum potassium. Provide IVF's as tolerated to encourage urine output. 0.45% NaCl + NaHCO3 has been ordered for continuous infusing following recent bolus of plasmalyte. Additional HCO3 replacement to be provided PRN. Patiromer x 1 dose will be provided now. Repeat metabolic profile at midnight. Provide additional potassium binder PRN. Patient's expressed understanding of the risk of from hyperkalemia induced arrythmia. (2) ANJUM (acute kidney injury): Non-oliguric but urine output notably decreased. ANJUM attributed to hyperuricemia, possible spontaneous tumor lysis, and ATN. I suspect a component of intravascular volume depletion despite increased total body water and generalized edema. IVF will be provided to encourage urine output. Document strict I/O's. Monitor renal profile q4-6 hours. TLS labs ordered with next blood work. Check vanco level prior to next dose. Medications otherwise dosed accordingly. Cautious use of voriconazole; switch to PO when able. (3) At high risk of tumor lysis syndrome: Labs to be monitored q 4-6 hours. IVF to encourage urine output. Prognosis is unfortunately very poor. Rasburicase may be provided for uric acid >12. History of Present Illness Reason for Consultation: anjum on ckd Requesting Physician: Juan Carlos Brady DO Attending Physician: Elena Nino MD History of Present Illness Mr. 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 Unfortunately, since diagnosis in 2013, he has had multiple different therapies which have all been stopped for various reasons. Treatment is currently on hold but disease was noted to be progressing on therapy. He recently traveled to [place] to discuss potential future treatment options. Unfo rtunately, due to current medical comorbidities, he was not considered a candidate pending improvement in health. I [place] [facility] [place] last month. He was referred to the clinic by Dr. Chavarria for evaluation of ANJUM. Kidney injury was appreciated in the setting of hyperuricemia with evidence of underlying spontaneous tumor lysis. Allopurinol was started and PO fluids encouraged. Serum creatinine eventually stabilized at ~1.6 mg/dL. During our conversation in clinic, Alphonso and his both acknowledged that options for treatment were limited. At the time, mutual understanding was that dialysis would not be considered part of the care plan at that time if kidney function declined. In the interim, Alphonso was admitted to [facility] with progressive hypoxic respiratory failure. He was intubated and placed on mechanical ventilation earlier today. Urine output has declined and creatinine is now progressively rising with associated hyperkalemia. I discussed the patient's condition and plan of care with Dr. rBady this evening. I spoke to Alphonso's by phone. Rossana expressed understanding regarding the severity of Alphonso's illness. She declined transfer to a tertiary care facility. We discussed the potential role of [facility] at this time. Rossana understands the risk of from renal failure and hyperkalemia. We agreed on an approach of medical management overnight with potassium binders while trying to encourage urine output. IVF is being provided as tolerated. If we are able to stabilize the patient overnight, we agreed to revisit the potential role of PARTS SPECIALIST tomorrow. Alphonso is receiving vancomycin, meropenem, azithromycin, and voriconazole for pneumonia. Medical history is notable for DMII, hypertension, hypothyroidism, history of CVA, history of colon abscess requiring colectomy and ostomy, and chronic kidney disease with a baseline creatinine of 1.6-2.0 mg/dL.Management of CLL most recently with acalabrutinib. However, treatment was placed on hold after developing a large thigh hematoma. Alphonso follows in the hematology clinic at [facility] with Dr. Heaton and locally with Dr. Smith. He [place] [facility] [place] due to bleeding complications and cytopenias. He was referred to the ER by his oncologist in January for abnormal laboratory studies notably ANJUM. Alphonso presented with weakness, pain in his leg, limited mobility, and increasing lower extremity edema. Appetite had been poor. Serum creatinine on admission was measured at 3.0 mg/dL. Alphonso was provided IV fluids with improvement in kidney function to a serum creatinine of 1.6 mg/dL. Evaluation was notable for hyperuricemia. He returned home on February 04. Laboratory studies obtained on February 24 demonstrated a rise in serum creatinine from 1.6 mg/dL to 2.7 mg/dL. Uric acid level >9. Alphonso was diagnosed with COVID treated with Paxlovid in January. There was notable progression of adenopathy following the discontinuation of acalabrutinib. There had been associated notable edema particularly in the lower extremities. There were concerns in the past related to allopurinol use. Alphonso had developed cytopenias previously during treatment for which the medication was held but it was suspected change in blood count was related to venetoclax and rituximab. He also had developed a maculopapular rash which was felt to be related to Ibrutinib versus allopurinol. Prior to this admission, he had been tolerating allopurinol 200 mg twice daily. Allergies Allergy/AdvReac Type Severity Reaction Status Date / Time allopurinol Allergy Unknown Rash Verified 03/07/23 08:07 ibrutinib [From Imbruvica] Allergy Unknown LOOKED Verified 03/07/23 19: LIKE A LEOPARD SPOTTED ALL OVER NSAIDS (Non-Steroidal AdvReac Unknown DUE TO Verified 03/07/23 19:23 Anti-Inflamma DECREASED KIDNEY FUNCTION Home Medications Medication Instructions Recorded Confirmed Type hydrocortisone 2.5 % topical cream 1 applic topical BID PRN Eczema 07/27/19 03/07/23 History acetaminophen 325 mg capsule 650 mg PO Q6H PRN Fever Or Pain 12/10/19 03/07/23 History (Tylenol) sildenafil 25 mg tablet 25 mg PO DAILY PRN sexual activity 06/19/21 03/07/23 Rx #20 tabs blood-glucose meter #1 ea 11/20/21 03/07/23 Rx lancets (Accu-Chek Softclix #100 ea 11/20/21 03/07/23 Rx Lancets) blood sugar diagnostic #300 ea 11/23/21 03/07/23 Rx atorvastatin 40 mg tablet 40 mg PO QAM #90 tabs 02/05/22 03/07/23 Rx glimepiride 2 mg tablet 4 mg PO QAM #180 tabs 02/05/22 03/07/23 Rx multivitamin 1 tab PO DAILY 02/21/22 03/07/23 History acalabrutinib 100 mg capsule 0 mg PO DAILY 06/20/22 03/07/23 History (Calquence) levothyroxine 50 mcg tablet 50 mcg PO QAM #30 tabs 11/15/22 03/07/23 Rx oxycodone 5 mg tablet 5 mg PO Q4H PRN Pain 01/30/23 03/07/23 History allopurinol 200 mg tablet 200 mg PO BID #180 tabs 02/28/23 03/07/23 Rx amoxicillin 875 mg-potassium 1 tab PO Q12H 03/07/23 03/07/23 History clavulanate 125 mg tablet magnesium 200 mg tablet 400 mg PO DAILY 03/07/23 03/07/23 History Patient History Medical History Anemia Bronchiolitis hx lingering cough illness 05/23 - current abx for/cough improving Cataract, left eye Chronic kidney disease STAGE III. Baseline Cr 1.6-1.8. Cirrhosis (01/19/19) Radiographic evidence on CT AP at [facility] during hospitalization - "Nodularity of the hepatic surface contour indicating early change of cirrhosis." CLL (chronic lymphocytic leukemia) (~2013) Diabetes mellitus, type 2 History of anesthesia problem per "feels he's probably a difficult intubation" Hyperlipidemia Hypertension Hypomagnesemia Hypothyroidism Lower extremity edema Lymphadenopathy Paronychia Port-A-Cath in place POWER/LEFT CHEST Presence of colostomy IN PROCESS OF COLOSTOMY REVERSAL/REASON FOR UPCOMING PROCEDURE. Stroke 2015--SPEECH IS SLIGHTLY SLOWER "word finding issue", slight facial droop when tired Thrombocytopenia Tinnitus of both ears Tumor lysis syndrome Hospitalized 07/27/19 - 07/30/19 - Improved with IVF and Rasburicase 6mg IV x 1. Surgical History H/O right cataract extraction History of bowel resection History of tooth extraction WISDOM TEETH History of vascular access device L CHEST/POWER S/P biopsy (~2019) Bone marrow biopsy x 2 S/P lymph node biopsy (11/11/19) Incisional Biopsy Left Axillary Node Dr. Chao 11/11/19 Status post excisional biopsy (06/21/22) Excisional biopsy left submandibular node (Left) - Harvey Chao MD, FACS Family History Father , 92yo TIA (transient ischemic attack) Diabetes Hypertension Mother , in 80s Endometrial cancer Lupus Heart valve replaced Diabetes Brother Bladder cancer Diabetes Hypertension Sister Diabetes Daughter No problems noted. Daughter No problems noted. 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 How many Children do You have: 2 Feels Safe at Home: Yes Diet: other caffeine: Yes (1 cup/day) during the past year weight has: decreased > 10 lbs Assistive Devices: None Review of Systems Review of Systems: Unobtainable due to endotracheal tube Physical Exam Constitutional: well developed, + ill appearing, + altered mental status (sedated and unresponsive) and + mechanically ventilated Eyes: + conjunctival abnormality (pallor); sclerae not anicteric ENMT: ETT Neck: normal visual inspection and trachea midline Respiratory: Auscultation: lungs clear to auscultation bilaterally and + bronchovesicular breath sounds anteriorly Cardiovascular: Rate/Rhythm: + tachycardic Heart Sounds: normal S1 and normal S2 Extremities: normal capillary refill and + edema (generalized, soft ) Musculoskeletal: Extremities: no cyanosis and no clubbing Skin: normal turgor; no jaundice Results & Data Vital Signs (Past 12 Hours) Vital Signs Temp Pulse Resp BP Pulse Ox O2 Del Method O2 Flow Rate 03/12/23 16:00 03/12/23 16:28 101/42 L 03/12/23 16:28 112 H 19 98 03/12/23 16:00 116 H 18 03/12/23 15:00 91 H 22 100 Mechanical Vent 03/12/23 14:00 91 H 20 99 03/12/23 13:23 97 H 14 03/12/23 12:50 103/58 L 03/12/23 12:50 92 H 17 90 03/12/23 12:38 101/55 L 03/12/23 12:38 89 18 92 03/12/23 12:35 89/53 L 03/12/23 12:35 89 18 94 03/12/23 12:33 94/52 L 03/12/23 12:33 88 20 03/12/23 12:30 92/51 L 03/12/23 12:30 89 20 93 03/12/23 12:28 93/50 L 03/12/23 12:28 88 20 03/12/23 12:25 93/51 L 03/12/23 12:25 91 H 20 94 03/12/23 12:23 103/57 L 03/12/23 12:23 91 H 18 03/12/23 12:20 106/60 03/12/23 12:20 82 20 92 03/12/23 12:18 85 24 93 03/12/23 12:18 104/57 L 03/12/23 12:15 92 H 20 94 03/12/23 12:15 105/58 L 03/12/23 12:13 117/61 03/12/23 12:13 94 H 21 95 03/12/23 12:10 124/67 03/12/23 12:10 89 20 96 03/12/23 12:08 91 H 21 95 Mechanical Vent 03/12/23 12:08 122/66 03/12/23 12:05 126/71 03/12/23 12:05 90 21 97 03/12/23 12:03 114/62 03/12/23 12:03 94 H 20 03/12/23 12:00 94 H 20 96 03/12/23 12:00 112/63 03/12/23 11:58 107/63 03/12/23 11:58 94 H 20 97 03/12/23 11:53 120/67 03/12/23 11:53 94 H 20 03/12/23 11:50 94 H 20 97 03/12/23 11:50 119/69 03/12/23 11:48 93 H 20 96 03/12/23 11:48 117/66 03/12/23 11:45 122/68 03/12/23 11:45 21 94 03/12/23 12:00 Mechanical Vent 03/12/23 08:00 110 H 03/12/23 16:00 37.4 C 03/12/23 08:00 39.2 C H 03/12/23 11:56 94 H 20 96 03/12/23 09:00 107 H 17 99 Oxymask 15 03/12/23 09:00 123/62 10/11/23 08:00 106 H 16 99 03/12/23 08:00 125/66 03/12/23 07:00 109 H 17 98 03/12/23 07:00 119/57 L FiO2 03/12/23 16:00 100 03/12/23 16:28 03/12/23 16:28 03/12/23 16:00 03/12/23 15:00 100 03/12/23 14:00 03/12/23 13:23 03/12/23 12:50 03/12/23 12:50 03/12/23 12:38 03/12/23 12:38 03/12/23 12:35 03/12/23 12:35 03/12/23 12:33 03/12/23 12:33 03/12/23 12:30 03/12/23 12:30 03/12/23 12:28 03/12/23 12:28 03/12/23 12:25 03/12/23 12:25 03/12/23 12:23 03/12/23 12:23 03/12/23 12:20 03/12/23 12:20 03/12/23 12:18 03/12/23 12:18 03/12/23 12:15 03/12/23 12:15 03/12/23 12:13 03/12/23 12:13 03/12/23 12:10 03/12/23 12:10 03/12/23 12:08 03/12/23 12:08 03/12/23 12:05 03/12/23 12:05 03/12/23 12:03 03/12/23 12:03 03/12/23 12:00 03/12/23 12:00 03/12/23 11:58 03/12/23 11:58 03/12/23 11:53 03/12/23 11:53 03/12/23 11:50 03/12/23 11:50 03/12/23 11:48 03/12/23 11:48 03/12/23 11:45 03/12/23 11:45 03/12/23 12:00 03/12/23 08:00 03/12/23 16:00 03/12/23 08:00 03/12/23 11:56 100 03/12/23 09:00 03/12/23 09:00 03/12/23 08:00 03/12/23 08:00 03/12/23 07:00 03/12/23 07:00 Laboratory Results Laboratory Results - last 24 hr 03/10/23 03/10/23 03/11/23 13:00 22:30 20:06 WBC RBC Hgb POC Hgb Hct POC Hct MCV MCH MCHC RDW Std Deviation RDW Coeff of Leonela Plt Count MPV Sample Site POC pH POC pCO2 POC pO2 POC HCO3 POC Total CO2 POC Base Excess ABG pH (Temp Correct) ABG pCO2 (Temp Corrct POC ABG pO2 at Pt Temp POC ABG O2 Sat Alphonso Test VBG pH VBG pCO2 VBG pO2 VBG HCO3 VBG O2 Saturation VBG Base Excess O2 Delivery Device POC O2 Rate POC FiO2 IPAP POC Sodium Sodium POC Potassium Potassium Chloride Carbon Dioxide Anion Gap BUN Creatinine Est Cr Clr Drug Dosing Est GFR ( Amer) Est GFR (Non-Af Amer) BUN/Creatinine Ratio Glucose POC Glucose 232 H Lactate Calcium Phosphorus Magnesium Ammonia Fluid Neutrophils % Fluid Lymphocytes % Fluid Comment Legionella Source Legionella Culture Urine Legionella Ag SEE NOTE Resp Virus Cult Rapid Staphylococcus sp PCR DETECTED A mecA/C-Methicil Resis Gene DETECTED A Staph epidermidis (PCR) DETECTED A Viral Specimen Source Bld Cult ID Panel PCR See PCR Comment 03/12/23 03/12/23 03/12/23 06:12 06:51 06:51 WBC 26.09 H RBC 2.30 L Hgb 7.4 L POC Hgb 7.1 L Hct 22.2 L POC Hct 21 L MCV 96.5 MCH 32.2 MCHC 33.3 RDW Std Deviation 83.7 H RDW Coeff of Leonela 24.1 H Plt Count 20 L* MPV 12.5 H Sample Site L Radial POC pH 7.36 POC pCO2 39 POC pO2 176 H POC HCO3 22 POC Total CO2 23 L POC Base Excess -4.0 ABG pH (Temp Correct) 7.323 L ABG pCO2 (Temp Corrct 43 POC ABG pO2 at Pt Temp 189 POC ABG O2 Sat 100.0 H Alphonso Test Pass VBG pH VBG pCO2 VBG pO2 VBG HCO3 VBG O2 Saturation VBG Base Excess O2 Delivery Device BIPAP POC O2 Rate 14 POC FiO2 100 IPAP 15 POC Sodium 134 L Sodium 135 L POC Potassium 5.3 H Potassium 5.4 H Chloride 104 Carbon Dioxide 23 Anion Gap 8 BUN 57 H Creatinine 2.72 H D Est Cr Clr Drug Dosing 33.1 Est GFR ( Amer) 27.0 Est GFR (Non-Af Amer) 23.3 BUN/Creatinine Ratio 21.0 H Glucose 152 H POC Glucose Lactate Calcium 8.1 L Phosphorus Magnesium Ammonia Fluid Neutrophils % Fluid Lymphocytes % Fluid Comment Legionella Source Legionella Culture Urine Legionella Ag Resp Virus Cult Rapid Staphylococcus sp PCR mecA/C-Methicil Resis Gene Staph epidermidis (PCR) Viral Specimen Source Bld Cult ID Panel PCR 03/12/23 03/12/23 03/12/23 06:51 09:06 10:16 WBC RBC Hgb POC Hgb Hct POC Hct MCV MCH MCHC RDW Std Deviation RDW Coeff of Leonela Plt Count MPV Sample Site POC pH POC pCO2 POC pO2 POC HCO3 POC Total CO2 POC Base Excess ABG pH (Temp Correct) ABG pCO2 (Temp Corrct POC ABG pO2 at Pt Temp POC ABG O2 Sat Alphonso Test VBG pH VBG pCO2 VBG pO2 VBG HCO3 VBG O2 Saturation VBG Base Excess O2 Delivery Device POC O2 Rate POC FiO2 IPAP POC Sodium Sodium POC Potassium Potassium Chloride Carbon Dioxide Anion Gap BUN Creatinine Est Cr Clr Drug Dosing Est GFR ( Amer) Est GFR (Non-Af Amer) BUN/Creatinine Ratio Glucose POC Glucose 167 H Lactate 0.7 Calcium Phosphorus Magnesium Ammonia 42.0 Fluid Neutrophils % Fluid Lymphocytes % Fluid Comment Legionella Source Legionella Culture Urine Legionella Ag Resp Virus Cult Rapid Staphylococcus sp PCR mecA/C-Methicil Resis Gene Staph epidermidis (PCR) Viral Specimen Source Bld Cult ID Panel PCR 03/12/23 03/12/23 03/12/23 10:16 12:17 17:52 WBC RBC Hgb POC Hgb Hct POC Hct MCV MCH MCHC RDW Std Deviation RDW Coeff of Leonela Plt Count MPV Sample Site POC pH POC pCO2 POC pO2 POC HCO3 POC Total CO2 POC Base Excess ABG pH (Temp Correct) ABG pCO2 (Temp Corrct POC ABG pO2 at Pt Temp POC ABG O2 Sat Alphonso Test VBG pH 7.24 L VBG pCO2 48 VBG pO2 66 VBG HCO3 21 VBG O2 Saturation 93.2 VBG Base Excess -6.9 O2 Delivery Device POC O2 Rate POC FiO2 IPAP POC Sodium Sodium POC Potassium Potassium Chloride Carbon Dioxide Anion Gap BUN Creatinine Est Cr Clr Drug Dosing Est GFR ( Amer) Est GFR (Non-Af Amer) BUN/Creatinine Ratio Glucose POC Glucose 187 H 214 H Lactate Calcium Phosphorus Magnesium Ammonia Fluid Neutrophils % Fluid Lymphocytes % Fluid Comment Legionella Source Legionella Culture Urine Legionella Ag Resp Virus Cult Rapid Staphylococcus sp PCR mecA/C-Methicil Resis Gene Staph epidermidis (PCR) Viral Specimen Source Bld Cult ID Panel PCR 03/12/23 03/12/23 03/12/23 17:54 Unknown Unknown WBC RBC Hgb POC Hgb Hct POC Hct MCV MCH MCHC RDW Std Deviation RDW Coeff of Leonela Plt Count MPV Sample Site POC pH POC pCO2 POC pO2 POC HCO3 POC Total CO2 POC Base Excess ABG pH (Temp Correct) ABG pCO2 (Temp Corrct POC ABG pO2 at Pt Temp POC ABG O2 Sat Alphonso Test VBG pH VBG pCO2 VBG pO2 VBG HCO3 VBG O2 Saturation VBG Base Excess O2 Delivery Device POC O2 Rate POC FiO2 IPAP POC Sodium Sodium Pending POC Potassium Potassium Pending Chloride Pending Carbon Dioxide Pending Anion Gap Pending BUN Pending Creatinine Pending Est Cr Clr Drug Dosing Pending Est GFR ( Amer) Pending Est GFR (Non-Af Amer) Pending BUN/Creatinine Ratio Pending Glucose Pending POC Glucose Lactate Calcium Pending Phosphorus Pending Magnesium Pending Ammonia Fluid Neutrophils % Pending Fluid Lymphocytes % Pending Fluid Comment Legionella Source Pending Legionella Culture Pending Urine Legionella Ag Resp Virus Cult Rapid Pending Staphylococcus sp PCR mecA/C-Methicil Resis Gene Staph epidermidis (PCR) Viral Specimen Source Pending Bld Cult ID Panel PCR Diagnostic Findings CT OF THE CHEST WITHOUT IV CONTRAST COMPARISON STUDY: Chest CT October 16, 2022. Chest radiograph performed earlier today. PET/CT December 25, 2022. FINDINGS: The tip of the endotracheal tube is 5.8 cm above the gabino. Tip of nasogastric tube is within the distal body of the stomach. There is moderate cardiomegaly and extensive coronary artery calcification. There is no pericardial effusion. There is no pneumothorax. Trace left pleural effusion. There has been interval dominant of extensive multifocal consolidation within the lungs. The left lower lobe is nearly completely opacified with air bronchograms. Extensive left upper lobe and right lower lobe consolidation is present. There are additional scattered alveolar opacities within the lungs. No cavitation is present.. No central obstructing mass is identified. There has been significant progression of extensive lower cervical and thoracic lymphadenopathy since PET/CT of December 25, 2022. Index right axillary node measures 8.5 x 4.2 cm. Index left axillary node measures 4.4 x 4.1 cm. It previously measured 3.7 x 3.6 cm. No suspicious lesions within the bony thorax are noted. Upper abdominal adenopathy is also significantly progressed. Splenomegaly has increased. IMPRESSION: 1. Interval development of extensive multifocal consolidation, greatest within the left lung. Associated air bronchograms. The findings favor pneumonia or aspiration pneumonitis. No central obstructing mass. 2. Significant progression of lymphadenopathy since PET/CT of December 25, 2022. This is consistent with the history of lymphoma. 3. Tip of endotracheal tube 5.8 cm above the gabino. The tube could be advanced [address] WITHOUT CONTRAST COMPARISON STUDY: Abdomen and pelvis CT 01/30/2023. FINDINGS: Bibasilar consolidation most pronounced on the left likely represents a pneumonia. This is better appreciated on the same day chest CT. Partially visualized lymphadenopathy within the lower chest again noted. Nasogastric tube terminates in the distal stomach. No pneumoperitoneum. No pneumatosis. No acute fractures identified. Small fat-containing umbilical hernia again noted. There is a large left lower quadrant parastomal hernia containing multiple loops of nonobstructed bowel. This remains unchanged. There is moderate body wall edema which has progressed. The bladder is decompressed by Marin catheter. Mass effect along the bladder from the pelvic lymphadenopathy has slightly improved. Hyperdense material within the gallbladder may represent sludge or small stones. This remains unchanged. The unenhanced liver and adrenal glands are unremarkable. No hydronephrosis. Moderate bilateral perinephric edema has slightly progressed. The spleen is enlarged measuring 16 cm in length. This has slightly progressed. The unenhanced pancreas appears unremarkable. Normal caliber abdominal aorta. Trace pelvic free fluid. Suboptimal evaluation for bowel pathology due to the lack of intravenous and oral contrast. However, no evidence for a bowel obstruction. Questionable thickening of the ascending colon is likely due to the patient's underlying edema. No definite bowel wall thickening identified. Bulky lymphadenopathy seen throughout the abdomen and pelvis is similar to the prior study. Small amount of residual right extraperitoneal hemorrhage adjacent to Large right pelvic lymph node has improved. This is primarily low density and therefore favors old hemorrhage. No evidence for acute hemorrhage at this time. IMPRESSION: 1. Consolidative airspace opacities within the lung bases are better appreciated on the same day chest CT. This likely represents a pneumonia. 2. Bulky lymphadenopathy within the abdomen and pelvis persists. This similar to the prior study. 3. Moderate body wall edema has progressed. 4. Splenomegaly has slightly progressed. 5. Questionable thickening of the ascending colon is likely due to the patient's edematous state. Otherwise, no definite bowel wall thickening or obstruction. 6. Near-complete resolution of the small amount of chronic residual hemorrhage within the right pelvic sidewall. No progressive or acute retroperitoneal hemorrhage identified. PG Care Time/CCT Total # of Minutes Spent Total Time Spent with Patient: Total time spent is greater than 50% in coordination of care (as documented) at patient's floor/unit and/or counseling patient: Coding Level of Care Code 99987 IN/OBS CONSULT LVL 5,80M Diagnoses Acute hyperkalemia E87.5 ANJUM (acute kidney injury) N17.9 At high risk of tumor lysis syndrome Z91.89
[2023-03-12 18:36] LABS: BUN Creatinine Ratio 19.8 (10-20); Calcium 8.1 mg/dl (8.6-10.3); Creatinine Clr Calc Pharmacy 26.6 ml/min; Est GFR (African American) 20.8 ml/min; Est GFR (Non-African American) 17.9 ml/min; Magnesium 2.2 mg/dl (1.7-2.4); Phosphorus 8.2 mg/dl (2.5-4.9); Potassium 6.2 mmol/L (3.5-5.1)
[2023-03-12] MEDS ORDERED: PATIROMER CALCIUM SORBITEX 8.4 GM PACK PO STA (18:55)
[2023-03-12] MEDS ORDERED: SODIUM BICARBONATE 8.4% 75 MEQ in SODIUM CHLORIDE 0.45 % 1,000 ML IV SCH (19:15)
[2023-03-12] MEDS ORDERED: PHENYLEPHRINE HCL 25 MG/250 ML NSS IV ONE (19:35)
[2023-03-12] MEDS ORDERED: PHENYLEPHRINE/NSS 25 MG/250 ML BAG IV SCH (19:45)
[2023-03-12] MEDS ORDERED: ACETAMINOPHEN 1000 MG/100 ML IV IV ONE (20:13)
[2023-03-12 20:18] LABS: iSTAT Art Bld Gas pCO2 Correct 51 mmHg (35-46); iSTAT Art Bld Gas pH Corrected 7.254 (7.35-7.45); iSTAT Arterial Blood Gas HCO3 22 meg/L (19-24); iSTAT Arterial Blood Gas pCO2 50 mmHg (35-46); iSTAT Arterial Blood Gas pH 7.26 (7.35-7.45); iSTAT Arterial Blood Gas pO2 123 mmHg (80-95); iSTAT Arterial Blood Gas pO2 C 126; iSTAT Carbon Dioxide 24 mmol/L (24-31); iSTAT FiO2 100 %; iSTAT Hematocrit 38 % (42-52); iSTAT Hemoglobin 12.9 g/dl (14.0-18.0); iSTAT Site Art Line; iSTAT Sodium 134 mmol/L (135-144)
[2023-03-12] MEDS ORDERED: NOREPINEPHRINE/D5W 4 MG/250 ML IV ONE (20:42)
[2023-03-12] MEDS: NOREPINEPHRINE/D5W 4 MG/250 ML PLCT IV SCH ×2 (20:50→23:31)
[2023-03-12] MEDS ORDERED: SODIUM BICARB 8.4% INJ 50 MEQ/50 ML SYR IV STA (21:01)
[2023-03-12] MEDS: VASOPRESSIN 20 UNITS in 0.9 % SODIUM CHLORIDE 100 ML IV SCH (22:04)
[2023-03-12] MEDS: SODIUM BICARBONATE 8.4% 150 MEQ in WATER, STERILE 1,000 ML IV SCH (22:05)
[2023-03-13] MEDS: fentaNYL BOLUS from BAG IV PRN ×2 (00:30→02:00)
[2023-03-13] MEDS: PROPOFOL BOLUS FROM BAG IV PRN (00:30)
[2023-03-13 00:44] LABS: BUN Creatinine Ratio 17.6 (10-20); Calcium 8.4 mg/dl (8.6-10.3); Creatinine Clr Calc Pharmacy 23.6 ml/min; Est GFR (Non-African American) 15.5 ml/min; Potassium 5.5 mmol/L (3.5-5.1)
[2023-03-13] MEDS: INSULIN ASPART PER UNIT CHARGE SC SCH ×6 (01:14→20:40)
[2023-03-13] MEDS: VORICONAZOLE 350 MG in 0.9 % SODIUM CHLORIDE 65 ML IV SCH ×2 (02:17→13:18)
[2023-03-13] MEDS: propofoL 1,000 MG/100 ML VIAL IV SCH ×7 (02:18→20:02)
[2023-03-13] MEDS: NOREPINEPHRINE/D5W 4 MG/250 ML PLCT IV SCH ×10 (02:18→21:44)
[2023-03-13] MEDS ORDERED: PATIROMER CALCIUM SORBITEX 8.4 GM PACK PO STA (03:11)
[2023-03-13] MEDS: fentaNYL citrate 2,500 MCG/250 ML BAG IV SCH ×2 (04:11→23:48)
[2023-03-13 04:21] LABS: Hematocrit (blood only) 24.5 % (42.0-52.0); Hemoglobin 7.6 g/dl (14.0-18.0); Mean Corpuscular Hemoglobin 31.3 pg (25.0-34.0); Mean Corpuscular Volume 100.8 fL (80.0-100.0); Mean Platelet Volume 10.1 fL (9.4-12.4); Platelet Count 21 K/uL (130-400); RDW Coefficient of Variation 23.9 % (11.5-14.5); RDW Standard Deviation 86.4 fL (36.4-46.3); Red Blood Count 2.43 M/uL (4.70-6.10); White Blood Count 56.99 K/ul (4.8-10.8)
[2023-03-13 04:38] LABS: Albumin Level 2.8 gm/dl (3.4-5.0); BUN Creatinine Ratio 17.8 (10-20); Bilirubin Direct 0.4 mg/dl (0-0.2); Bilirubin,Total 0.7 mg/dl (0.2-1.0); Calcium 7.9 mg/dl (8.6-10.3); Creatinine Clr Calc Pharmacy 23.2 ml/min; Est GFR (African American) 17.6 ml/min; Est GFR (Non-African American) 15.2 ml/min; Magnesium 2.2 mg/dl (1.7-2.4); Phosphorus 7.7 mg/dl (2.5-4.9); Potassium 5.5 mmol/L (3.5-5.1); Total Protein 5.8 gm/dl (6.0-8.3); Uric Acid 6.9 mg/dl (2.6-7.2)
[2023-03-13] MEDS: VASOPRESSIN 20 UNITS in 0.9 % SODIUM CHLORIDE 100 ML IV SCH ×3 (05:37→21:04)
--- NOTE | 2023-03-13 05:51 | Hospitalist Progress Note ---
Date of Service March 13, 2023 Assessment & Plan (1) CLL (chronic lymphocytic leukemia): Plan: Acute deterioration probably largely driven by his immunocompromise and infectious predisposition, he likely has both humoral and cellular immune deficits with potential trouble clearing his previous COVID infection as well as dealing with superimposed bacterial, fungal, and viral infections. The jump in his WBC may simply be stress related. We will ask for review of the peripheral smear and a repeat of a formal differential. Hyperleukocytosis in CLL is common and rarely the cause of leukostasis issues but if he were undergoing a Gonzales's transformation with the evolution of a lymphoblastic like picture, that could be part of his current deterioration. With such tenuous multiorgan dysfunction and probable superimposed infection, there is unfortunately no role for acute chemotherapy or CLL directed immunotherapy as these will only further complicate his difficult situation Plan Sent for peripheral smear review to be sure there is no signs of Gonzales's transformation and to reassess neutrophil count with an eye towards the role for myeloid growth factors in the setting of marked deterioration. No role for oncologic intervention beyond the aggressive supportive care he is currently receiving from hospitalist, critical care, infectious disease, nephrology teams, appreciate their efforts Admission and Anticipated Discharge Date Admission Date: March 07, 2023 Subjective Acute deterioration yesterday requiring intubation. ID has expanded antibiotic coverage spectrum. Nephrology helping to manage issues of acute renal failure and electrolyte imbalance. Results & Data Results & Data Vital Signs (Past 12 Hours) Vital Signs Temp Pulse Resp BP Pulse Ox O2 Del Method FiO2 03/13/23 05:00 86 24 97 03/13/23 04:30 86 24 97 03/13/23 04:00 88 24 97 03/13/23 04:00 37.7 C H 131/71 03/13/23 03:30 88 24 97 03/13/23 03:00 88 24 97 03/13/23 03:00 133/65 03/13/23 02:30 36.8 C 87 24 96 03/13/23 02:00 36.7 C 87 24 100 03/13/23 02:00 135/64 03/13/23 02:31 88 24 96 50 03/13/23 00:00 80 03/12/23 20:26 24 80 03/13/23 01:30 36.7 C 87 24 100 03/13/23 01:00 36.8 C 87 24 100 03/13/23 01:00 139/70 03/13/23 00:30 36.9 C 87 24 100 03/13/23 00:00 87 24 99 03/13/23 00:00 137/69 03/12/23 23:30 89 24 100 03/12/23 23:00 91 H 24 100 03/12/23 23:00 129/65 03/12/23 22:30 92 H 24 100 03/12/23 20:00 Mechanical Vent 80 03/13/23 00:00 91 H 03/12/23 23:24 92 H 24 100 70 03/12/23 20:00 80 03/12/23 22:00 96 H 24 99 03/12/23 22:00 112/56 L 03/12/23 21:30 96 H 22 99 03/12/23 21:00 98 H 24 100 03/12/23 21:00 114/61 03/12/23 20:30 45.0 C H 107 H 24 100 03/12/23 20:00 109 H 20 100 03/12/23 20:00 113/61 03/12/23 19:30 111 H 16 100 03/12/23 20:45 97 H 26 H 100 80 03/12/23 20:05 109 H 24 100 100 03/12/23 19:00 111 H 20 100 03/12/23 19:00 98/51 L 03/12/23 18:30 113 H 23 97 03/12/23 18:02 101/64 03/12/23 18:02 119 H 18 93 03/12/23 18:00 119 H 21 93 03/12/23 18:00 94/62 L PG Care Time/CCT Total # of Minutes Spent Total Time Spent with Patient: Total time spent is greater than 50% in coordination of care (as documented) at patient's floor/unit and/or counseling patient: Coding Level of Care Code None Diagnoses CLL (chronic lymphocytic leukemia) C91.90
[2023-03-13 05:56] LABS: iSTAT Art Bld Gas pCO2 Correct 54 mmHg (35-46); iSTAT Art Bld Gas pH Corrected 7.254 (7.35-7.45); iSTAT Arterial Blood Gas HCO3 24 meg/L (19-24); iSTAT Arterial Blood Gas pCO2 52 mmHg (35-46); iSTAT Arterial Blood Gas pH 7.26 (7.35-7.45); iSTAT Arterial Blood Gas pO2 84 mmHg (80-95); iSTAT Arterial Blood Gas pO2 C 88; iSTAT Carbon Dioxide 25 mmol/L (24-31); iSTAT FiO2 50 %; iSTAT Hematocrit 25 % (42-52); iSTAT Hemoglobin 8.5 g/dl (14.0-18.0); iSTAT Potassium 5.5 mmol/L (3.3-5.0); iSTAT Site Art Line; iSTAT Sodium 131 mmol/L (135-144)
[2023-03-13] MEDS ORDERED: PHARMACY GLYCEMIC MGMT CONSULT PRN (06:08)
[2023-03-13] MEDS ORDERED: INSULIN PROTOCOL GOAL RANGE ONE (06:08)
[2023-03-13] MEDS ORDERED: STAT IV Infusion **Titration per Protocol STA (06:08)
[2023-03-13] MEDS: MEROPENEM 500 MG in SYRINGE 0 ML IV SCH ×2 (06:42→13:20)
[2023-03-13] MEDS: INSULIN REGULAR 250 UNITS in SODIUM CHLORIDE 0.9% 247.5 ML IV SCH (06:43)
[2023-03-13] MEDS ORDERED: INSULIN HUMAN REGULAR IV BOLUS 4 UNITS in SYRINGE 0 ML IV ONE (06:45)
[2023-03-13 06:58] LABS: Basophils # (auto) 0.02 K/uL (0.00-0.20); Eosinophils # (auto) 0.01 K/uL (0.00-0.50); Immature Granulocytes # (auto) 0.03 K/uL (0.01-0.20); Immature Granulocytes % (auto) 0.1 %; Lymphocytes # (auto) 46.42 K/uL (1.20-3.40); Lymphocytes % (auto) 79.8 %; Monocytes # (auto) 10.78 K/uL (0.11-0.59); Monocytes % (auto) 18.5 %; Neutrophils # (auto) 0.89 K/uL (1.40-6.50); Neutrophils % (auto) 1.6 %
[2023-03-13 07:00] LABS: Anisocytosis Present
--- NOTE | 2023-03-13 07:23 | XRay Report ---
SINGLE VIEW CHEST CLINICAL HISTORY: Respiratory failure FINDINGS: An AP, portable, upright chest radiograph is compared to chest x-ray and chest CT dated 04/2023. An endotracheal tube, enteric tube, a right internal jugular central venous catheter, and a left subclavian central venous infusion port are unchanged in position. The heart is enlarged. The pu lmonary vasculature is noncongested. Multifocal airspace consolidation is again seen throughout both lungs. This is similar to previous. No pneumothorax is seen. The skeletal structures are osteopenic. The bony thorax is grossly intact. IMPRESSION: 1. Multifocal airspace consolidation has not significantly changed from yesterday. 2. Stable lines and tubes. 3. Cardiomegaly without radiographic evidence of congestive failure. ACT 112: Negative or not required by law. Electronically signed by: Neymar Cohn M.D. 03/13/2023 7:22 AM
[2023-03-13] MEDS: SODIUM BICARBONATE 8.4% 150 MEQ in WATER, STERILE 1,000 ML IV SCH ×2 (09:11→21:04)
[2023-03-13] MEDS: ACETAMINOPHEN 1,000 MG/100 ML VIAL IV PRN (09:12)
--- NOTE | 2023-03-13 09:33 | Critical Care Progress Note ---
Date of Service March 13, 2023 Assessment & Plan (1) Immunoglobulin deficiency, acquired: Plan: Reason Critically Ill: 67-year-old male with acute hypoxic respiratory failure in the setting of febrile neutropenia secondary to CLL PLAN: Neuro: Encephalopathy: Multifactorial Continue sedation and analgesia to facilitate mechanical ventilation Anxiety - discontinued Ativan secondary to sedation to facilitate mechanical ventilation Resp: Acute hypoxic respiratory failure: Worsening: PF ratio 140 -Intubated 03/12 -CT scan reviewed which revealed dense left lower lobe pneumonia as well as multilobar pneumonia -Underwent bronchoscopy and specimen obtained 03/12 -Meropenem, azithromycin, vancomycin CV: Echo reviewed. Fluids/Renal: Acute kidney failure on chronic kidney disease: Worsening -Nephrology consulted: Discussed with at bedside today - Present blood dyscrasias would make renal replacement therapy difficult - Received 2 doses of Lokelma and receiving a bicarbonate infusion ID: Reviewed infectious disease notes -Meropenem 1 g IV every 8 hours -Voriconazole for CLL and risk of invasive aspergillosis -Azithromycin -Vancomycin -Single blood culture positive for coag negative staph questionable contaminant repeat have been ordered and obtained -Consider antibiotic lock to port COVID-19: Infection control to discuss with infectious disease regarding removal of airborne precautions, - to continue at this point Enterovirus infection Pelvic hematoma -Interval improvement on noncontrast CT scan GI/Nutrition: N.p.o. Heme: CLL -Transfusion triggers as per oncology hemoglobin less than 7.5 irradiated platelets for less than 10,000 -GCSF per oncology: Peripheral smear reviewed DVT prophylaxis: Chemoprophylaxis contraindicated in the setting of significant thrombocytopenia Endocrine: Continue home levothyroxine Vascular access: Right internal jugular triple-lumen catheter placed 03/12 Code Status: Limited code: No chest compressions in event of cardiac arrest Disposition: ICU (2) Acute hypoxic respiratory failure: (3) Neutropenic fever: (4) Enterovirus infection: Admission and Anticipated Discharge Date Admission Date: March 07, 2023 Supervising Physician Co-Signing Physician Notes I have personally spent 95 minutes of critical care time in the direct management of this patient. This is a life/limb threatening event. This includes time spent evaluating patient, direct bedside care, chart review, placing orders, interpretation of diagnostic studies, discussion with consultants, patient, and/or family members regarding treatment decisions, as well as other required patient management activities. This time is exclusive of all separately billable procedures, and teaching time and separate from and in addition to any other critical care service time. Subjective Overnight required the addition of norepinephrine and vasopressin for sepsis. Overnight required the addition of norepinephrine and vasopressin for sepsis induced hypotension. Had initially started tube feedings for nutritional support however given the increase in vasoactive requirements this has been discontinued. Discussed at bedside with nephrology, infectious disease and patient's family. Review of Systems Review of Systems: Unobtainable due to endotracheal tube Physical Exam Physical Exam: General: Sedated. nontoxic. Skin: Warm, dry, Head: Atraumatic Ears, nose, mouth and throat: airway obscured by endotracheal tube Cardiovascular: Normal peripheral perfusion Respiratory: Ventilator settings reviewed Gastrointestinal: Non distended Musculoskeletal: No deformity Results & Data Results & Data Vital Signs (Past 12 Hours) Vital Signs Temp Pulse Resp BP Pulse Ox FiO2 03/13/23 07:16 92 H 28 H 95 60 03/13/23 06:58 38.2 C H 03/13/23 06:30 85 28 H 98 03/13/23 06:00 86 25 H 97 03/13/23 06:00 125/63 03/13/23 05:30 86 24 97 03/13/23 05:00 126/64 03/13/23 06:00 50 03/13/23 05:00 86 24 97 03/13/23 04:30 86 24 97 03/13/23 04:00 88 24 97 03/13/23 04:00 37.7 C H 131/71 03/13/23 03:30 88 24 97 03/13/23 03:00 88 24 97 03/13/23 03:00 133/65 03/13/23 02:30 36.8 C 87 24 96 03/13/23 02:00 36.7 C 87 24 100 03/13/23 02:00 135/64 03/13/23 02:31 88 24 96 50 03/13/23 00:00 80 03/13/23 01:30 36.7 C 87 24 100 03/13/23 01:00 36.8 C 87 24 100 03/13/23 01:00 139/70 03/13/23 00:30 36.9 C 87 24 100 03/13/23 00:00 87 24 99 03/13/23 00:00 137/69 03/12/23 23:30 89 24 100 03/12/23 23:00 91 H 24 100 03/12/23 23:00 129/65 03/12/23 22:30 92 H 24 100 03/13/23 00:00 91 H 03/12/23 23:24 92 H 24 100 70 03/12/23 22:00 96 H 24 99 03/12/23 22:00 112/56 L Critical Care Results & Data Vital Signs (Past 12 Hours) Vital Signs Temp Pulse Resp BP Pulse Ox FiO2 03/13/23 11:00 86 24 98 03/13/23 11:00 119/55 L 03/13/23 10:00 91 H 24 98 03/13/23 10:00 111/58 L 03/13/23 09:00 91 H 28 H 98 03/13/23 09:00 114/59 L 03/13/23 08:00 91 H 28 H 97 03/13/23 08:00 118/59 L 03/13/23 07:00 86 28 H 97 03/13/23 07:00 121/63 03/13/23 11:24 86 25 H 98 60 03/13/23 07:16 92 H 28 H 95 60 03/13/23 06:58 38.2 C H 03/13/23 06:30 85 28 H 98 03/13/23 06:00 86 25 H 97 03/13/23 06:00 125/63 03/13/23 05:30 86 24 97 03/13/23 05:00 126/64 03/13/23 06:00 50 03/13/23 05:00 86 24 97 03/13/23 04:30 86 24 97 03/13/23 04:00 88 24 97 03/13/23 04:00 37.7 C H 131/71 03/13/23 03:30 88 24 97 03/13/23 03:00 88 24 97 03/13/23 03:00 133/65 03/13/23 02:30 36.8 C 87 24 96 03/13/23 02:31 88 24 96 50 Lab & Micro Results (Past 24 Hours) RBC 2.43 M/uL (4.70-6.10) L 03/13/23 WBC 56.99 K/ul (4.8-10.8) H* 03/13/23 Hgb 7.6 g/dl (14.0-18.0) L 03/13/23 Hct 24.5 % (42.0-52.0) L 03/13/23 MCV 100.8 fL (80.0-100.0) H 03/13/23 MCH 31.3 pg (25.0-34.0) 03/13/23 MCHC 31.0 g/dL (32.0-36.0) L 03/13/23 RDW Standard Deviation 86.4 fL (36.4-46.3) H 03/13/23 RDW Coefficient of Variation 23.9 % (11.5-14.5) H 03/13/23 Plt Count 21 K/uL (130-400) L* 03/13/23 MPV 10.1 fL (9.4-12.4) 03/13/23 Neutrophils (%) (Auto) 1.6 % 03/13/23 Lymphocytes (%) (Auto) 79.8 % 03/13/23 Monocytes # (Auto) 10.78 K/uL (0.11-0.59) H 03/13/23 Eosinophils # (Auto) 0.01 K/uL (0.00-0.50) 03/13/23 Immature Granulocyte % (Auto) 0.1 % 03/13/23 Neutrophils # (Auto) 0.89 K/uL (1.40-6.50) L* 03/13/23 Lymphocytes # (Auto) 46.42 K/uL (1.20-3.40) H 03/13/23 Monocytes # (Auto) 10.78 K/uL (0.11-0.59) H 03/13/23 Eosinophils # (Auto) 0.01 K/uL (0.00-0.50) 03/13/23 Basophils # (Auto) 0.02 K/uL (0.00-0.20) 03/13/23 Immature Granulocyte # (Auto) 0.03 K/uL (0.01-0.20) 3 Anisocytosis Present 03/13/23 Na 133 mmol/L (136-145) L 03/13/23 K 5.5 mmol/L (3.5-5.1) H 03/13/23 Cl 99 mmol/L (98-107) 03/13/23 CO2 22 mmol/L (21-32) 03/13/23 Anion Gap 12 (3-11) H 03/13/23 BUN 69 mg/dl (6-23) H 03/13/23 Creatinine 3.88 mg/dl (0.6-1.4) H 03/13/23 Estimated GFR ( Amer) 17.6 ml/min 03/13/23 Estimated GFR (Non-Af Amer) 15.2 ml/min 03/13/23 BUN/Creatinine Ratio 17.8 (10-20) 03/13/23 Glu 275 mg/dl (70-99(Fasting)) H 03/13/23 Ca 7.9 mg/dl (8.6-10.3) L 03/13/23 Phosphorus Level 7.7 mg/dl (2.5-4.9) H 03/13/23 Total Bilirubin 0.7 mg/dl (0.2-1.0) 03/13/23 Direct Bilirubin 0.4 mg/dl (0-0.2) H 03/13/23 AST 25 U/L (13-39) 03/13/23 ALT 14 U/L (7-52) 03/13/23 Alkaline Phosphatase 71 U/L (34-104) 03/13/23 TP 5.8 gm/dl (6.0-8.3) L 03/13/23 Albumin 2.8 gm/dl (3.4-5.0) L 03/13/23 Mg 2.2 mg/dl (1.7-2.4) 03/13/23 04:05 Calcium Level 7.9 mg/dl (8.6-10.3) L 03/13/23 04:05 Alphonso Test NA 03/13/23 05:27 Microbiology 03/12/23 Unknown Gram Stain - Final Bronch Wash,Left Lower Lobe Bronchial Culture - Preliminary No growth 03/12/23 Unknown Fungal Smear - Final Bronch Wash,Left Lower Lobe 03/12/23 06:52 Aerobic Blood Culture - Preliminary Blood No growth in Aerobic bottle after 24 hours. Anaerobic Blood Culture - Preliminary No growth in Anaerobic bottle after 24 hours. 03/12/23 06:51 Aerobic Blood Culture - Preliminary Blood No growth in Aerobic bottle after 24 hours. Anaerobic Blood Culture - Preliminary No growth in Anaerobic bottle after 24 hours. 03/07/23 17:23 Aerobic Blood Culture - Final Blood No growth in Aerobic bottle after 5 days. Anaerobic Blood Culture - Final No growth in Anaerobic bottle after 5 days. 03/10/23 22:30 Aerobic Blood Culture - Preliminary Blood Coag neg staph not lugdunensis Anaerobic Blood Culture - Preliminary No growth in Anaerobic bottle after 48 hours. 03/10/23 13:08 Aerobic Blood Culture - Preliminary Blood No growth in Aerobic bottle after 48 hours. Anaerobic Blood Culture - Final Diagnostic Findings (Past 24 Hours) Chest X-Ray 03/12/23 14:05 XR chest 1V portable HISTORY: 67 years-old Male central line placement right IJ status post michelle cement of a right IJ central venous catheter COMPARISON: Chest CT of same day TECHNIQUE: AP view of the chest FINDINGS: Cardiac silhouette is enlarged. Endotracheal tube overlies the midline, approximately 7.4 cm superior to the gabino. A right IJ central venous catheter is noted in the expected location of the upper SVC. Left subclavian [id number] catheter is noted in the mid aspect of the SVC. Distal tip enteric tube projects inferiorly outside the [id number]. Distal abdominal lymphadenopathy with mixed interstitial and alveolar opacities noted. Dense airspace consolidation within the lung bases and left midlung are again seen. Small pleural effusions. Degenerative changes of the shoulders and spine. IMPRESSION: 1. Lines and tubes as above. 2. No pneumothorax. 3. Persistent mixed interstitial and alveolar opacities suggestive of pneumonia with small pleural effusions. 4. Hilar lymphadenopathy. ACT 112: Negative or not required by law. The above report was generated using voice recognition software. It may contain grammatical, syntax or spelling errors. Electronically signed by: Benedict Anderson M.D. 03/12/2023 3:05 PM Chest X-Ray 03/13/23 07:00 SINGLE VIEW CHEST CLINICAL HISTORY: Respiratory failure FINDINGS: An AP, portable, upright chest radiograph is compared to chest x-ray and chest CT dated 03/12/2023. An endotracheal tube, enteric tube, a right internal jugular central venous catheter, and a left subclavian central venous infusion port are unchanged in position. The heart is enlarged. The pulmonary vasculature is noncongested. Multifocal airspace consolidation is again seen throughout both lungs. This is similar to previous. No pneumothorax is seen. The skeletal structures are osteopenic. The bony thorax is grossly intact. IMPRESSION: 1. Multifocal airspace consolidation has not significantly changed from yesterday. 2. Stable lines and tubes. 3. Cardiomegaly without radiographic evidence of congestive failure. ACT 112: Negative or not required by law. Electronically signed by: Neymar Cohn M.D. 03/13/2023 7:22 AM I & O Totals 24 Hours 03/12/23 03/13/23 03/14/23 06:59 06:59 06:59 Intake Total 452.5 / 452.5 3379.113 / 3379.113 1884.720 / 1884.720 Output Total 885 / 885 250 / 250 Balance -432.5 / -432.5 3129.113 / 3129.113 1884.720 / 1884.720 Cumulative 03/07/23 16:41 thru 03/13/23 13:20 Intake Total 31450.833 Output Total 71783 Balance -3737.167 RT Ventilator Mngmt (Last Documented) Ventilator Ordered Settings Ventilator Support Mode Assist Control 03/13/23 11:24 Respiratory Rate 25 03/13/23 11:24 Ventilator Tidal Volume 450 03/13/23 11:24 Setting Minute Ventilation 11 03/13/23 11:24 Positive End Expiratory 15 03/13/23 11:24 Pressure Fraction of Inspired Oxygen 60 03/13/23 11:24 Machine Comment settings changed per HOSPITAL SECRETARY 03/12/23 20:26 Ventilator - PT Measurements Respiratory Rate 25 Exhaled Tidal Volume 450 Minute Ventilation 11 Peak Inspiratory Airway 29 Pressure Plateau Pressure 28 Respiratory Cycle Inspiratory: 1:2 Expiratory Ratio Inspiratory Phase Time 1 End-Tidal CO2 38 Static Lung Compliance 34.62 Dynamic Lung Compliance 32.14 Normal Static Lung Compliance 47.00 Patient Measurements Comment decreased fio2 to 50% Coding Level of Care Code 60381 CRITICAL CARE 1ST 30-74M Additional Critical Care Time Additional 30min Critical Care Time: Yes - 45425 Diagnoses Immunoglobulin deficiency, acquired D80.9 Acute hypoxic respiratory failure J96.01 Neutropenic fever D70.9; R50.81 Enterovirus infection B34.1 Additional Codes Critical Care Time - Additional 30min Critical Care Time: Yes - [id number] ([id number])
[2023-03-13] MEDS ORDERED: FILGRASTIM 480 MCG/1.6 ML VIAL SC SCH (10:30)
--- NOTE | 2023-03-13 10:30 | Nephrology Progress Note ---
Date of Service March 13, 2023 Assessment & Plan (1) Acute hyperkalemia: Plan: Additional dose of Patiromer provided at ~3:30 AM. IVF provided to encourage urine output. Vasopressors titrated as needed to support kidney function. NaHCO3 replacement is being provided with IVF. Continue to monitor metabolic profile Q4-6 hours. (2) ANJUM (acute kidney injury): Plan: Relatively oliguric. Overall prognosis is poor. Increased TBW but intravascular volume depletion. IVF will be provided to encourage positive fluid balance. Document strict I/O's. Monitor renal profile q4-6 hours. TLS labs ordered with next blood work. Check vanco level prior to next dose. Medications otherwise dosed accordingly. Cautious use of voriconazole; switch to PO when able. (3) At high risk of tumor lysis syndrome: Plan: Labs to be monitored q 4-6 hours. IVF to encourage urine output. Prognosis is unfortunately very poor. Rasburicase may be provided for uric acid >12. Review of peripheral smear pending. Admission and Anticipated Discharge Date Admission Date: March 07, 2023 Subjective Vasopressor support initiated overnight. Remains on mechanical vent support - FIO2 60%. Relatively oliguric. Febrile. Mr. Gray and seen with his at the bedside. Recent history and plan of care were reviewed with his . Rossana expressed a desire not to escalate care. I also discussed the plan of care with Dr. Smith and Dr. Brady this AM. Review of Systems Review of Systems: All systems reviewed & are unremarkable except as noted in HPI & below Physical Exam Constitutional: well developed, + ill appearing, + altered mental status (sedated and unresponsive) and + mechanically ventilated Eyes: + conjunctival abnormality (pallor); sclerae not anicteric Neck: normal visual inspection and trachea midline Respiratory: Auscultation: lungs clear to auscultation bilaterally and + bronchovesicular breath sounds Cardiovascular: Rate/Rhythm: + tachycardic Heart Sounds: normal S1 and normal S2 Extremities: normal capillary refill and + edema (generalized, soft ) Musculoskeletal: Extremities: no cyanosis and no clubbing Skin: normal turgor; no jaundice Results & Data Vital Signs (Past 12 Hours) Vital Signs Temp Pulse Resp BP Pulse Ox FiO2 03/13/23 07:16 92 H 28 H 95 60 03/13/23 06:58 38.2 C H 03/13/23 06:30 85 28 H 98 03/13/23 06:00 86 25 H 97 03/13/23 06:00 125/63 03/13/23 05:30 86 24 97 03/13/23 05:00 126/64 03/13/23 06:00 50 03/13/23 05:00 86 24 97 03/13/23 04:30 86 24 97 03/13/23 04:00 88 24 97 03/13/23 04:00 37.7 C H 131/71 03/13/23 03:30 88 24 97 03/13/23 03:00 88 24 97 03/13/23 03:00 133/65 03/13/23 02:30 36.8 C 87 24 96 03/13/23 02:00 36.7 C 87 24 100 03/13/23 02:00 135/64 03/13/23 02:31 88 24 96 50 03/13/23 00:00 80 03/13/23 01:30 36.7 C 87 24 100 03/13/23 01:00 36.8 C 87 24 100 03/13/23 01:00 139/70 03/13/23 00:30 36.9 C 87 24 100 03/13/23 00:00 87 24 99 03/13/23 00:00 137/69 03/12/23 23:30 89 24 100 03/12/23 23:00 91 H 24 100 03/12/23 23:00 129/65 03/12/23 22:30 92 H 24 100 03/13/23 00:00 91 H 03/12/23 23:24 92 H 24 100 70 Laboratory Results Laboratory Results - last 24 hr 03/10/23 03/12/23 03/12/23 13:00 10:16 12:17 WBC RBC Hgb POC Hgb Hct POC Hct MCV MCH MCHC RDW Std Deviation RDW Coeff of Leonela Plt Count MPV Immature Gran % (Auto) Neut % (Auto) Lymph % (Auto) Hughes % (Auto) Eos % (Auto) Baso % (Auto) Neut # (Auto) Lymph # (Auto) Hughes # (Auto) Eos # (Auto) Baso # (Auto) Immature Gran # (Auto) Anisocytosis Peripher Smr Path Cons Sample Site POC pH POC pCO2 POC pO2 POC HCO3 POC Total CO2 POC Base Excess ABG pH (Temp Correct) ABG pCO2 (Temp Corrct POC ABG pO2 at Pt Temp POC ABG O2 Sat Alphonso Test O2 Delivery Device POC O2 Rate POC FiO2 Tidal Volume PEEP POC Sodium Sodium POC Potassium Potassium Chloride Carbon Dioxide Anion Gap BUN Creatinine Est Cr Clr Drug Dosing Est GFR ( Amer) Est GFR (Non-Af Amer) BUN/Creatinine Ratio Glucose POC Glucose 187 H POC Glucose (other) Uric Acid Calcium Phosphorus Magnesium Total Bilirubin Direct Bilirubin AST ALT Alkaline Phosphatase Ammonia 42.0 Total Protein Albumin Fluid Neutrophils % Fluid Lymphocytes % Fluid Eosinophils % Fluid Basophils % Fl Monocyt/Macrophag % Fluid Other Cells % Fluid Epithelial Cells Fluid Comment Random Vancomycin Legionella Source Legionella Culture Urine Legionella Ag SEE NOTE Resp Virus Cult Rapid Viral Specimen Source 03/12/23 03/12/23 03/12/23 17:52 17:54 20:04 WBC RBC Hgb POC Hgb 12.9 L Hct POC Hct 38 L MCV MCH MCHC RDW Std Deviation RDW Coeff of Leonela Plt Count MPV Immature Gran % (Auto) Neut % (Auto) Lymph % (Auto) Hughes % (Auto) Eos % (Auto) Baso % (Auto) Neut # (Auto) Lymph # (Auto) Hughes # (Auto) Eos # (Auto) Baso # (Auto) Immature Gran # (Auto) Anisocytosis Peripher Smr Path Cons Sample Site Art Line POC pH 7.26 L POC pCO2 50 H POC pO2 123 H POC HCO3 22 POC Total CO2 24 POC Base Excess -5.0 ABG pH (Temp Correct) 7.254 L ABG pCO2 (Temp Corrct 51 H POC ABG pO2 at Pt Temp 126 POC ABG O2 Sat 98.0 H Alphonso Test NA O2 Delivery Device Ventilator POC O2 Rate 20 POC FiO2 100 Tidal Volume 450 PEEP 71 POC Sodium 134 L Sodium 133 L POC Potassium 6.0 H Potassium 6.2 H* Chloride 103 Carbon Dioxide 19 L Anion Gap 11 BUN 67 H Creatinine 3.38 H D Est Cr Clr Drug Dosing 26.6 Est GFR ( Amer) 20.8 Est GFR (Non-Af Amer) 17.9 BUN/Creatinine Ratio 19.8 Glucose 219 H POC Glucose 214 H POC Glucose (other) Uric Acid Calcium 8.1 L Phosphorus 8.2 H Magnesium 2.2 Total Bilirubin Direct Bilirubin AST ALT Alkaline Phosphatase Ammonia Total Protein Albumin Fluid Neutrophils % Fluid Lymphocytes % Fluid Eosinophils % Fluid Basophils % Fl Monocyt/Macrophag % Fluid Other Cells % Fluid Epithelial Cells Fluid Comment Random Vancomycin Legionella Source Legionella Culture Urine Legionella Ag Resp Virus Cult Rapid Viral Specimen Source 03/12/23 03/12/23 03/12/23 23:42 Unknown Unknown WBC RBC Hgb POC Hgb Hct POC Hct MCV MCH MCHC RDW Std Deviation RDW Coeff of Leonela Plt Count MPV Immature Gran % (Auto) Neut % (Auto) Lymph % (Auto) Hughes % (Auto) Eos % (Auto) Baso % (Auto) Neut # (Auto) Lymph # (Auto) Hughes # (Auto) Eos # (Auto) Baso # (Auto) Immature Gran # (Auto) Anisocytosis Peripher Smr Path Cons Sample Site POC pH POC pCO2 POC pO2 POC HCO3 POC Total CO2 POC Base Excess ABG pH (Temp Correct) ABG pCO2 (Temp Corrct POC ABG pO2 at Pt Temp POC ABG O2 Sat Alphonso Test O2 Delivery Device POC O2 Rate POC FiO2 Tidal Volume PEEP POC Sodium Sodium POC Potassium Potassium Chloride Carbon Dioxide Anion Gap BUN Creatinine Est Cr Clr Drug Dosing Est GFR ( Amer) Est GFR (Non-Af Amer) BUN/Creatinine Ratio Glucose POC Glucose POC Glucose (other) 215 H Uric Acid Calcium Phosphorus Magnesium Total Bilirubin Direct Bilirubin AST ALT Alkaline Phosphatase Ammonia Total Protein Albumin Fluid Neutrophils % Cancelled Fluid Lymphocytes % Cancelled Fluid Eosinophils % Cancelled Fluid Basophils % Cancelled Fl Monocyt/Macrophag % Cancelled Fluid Other Cells % Cancelled Fluid Epithelial Cells Cancelled Fluid Comment Cancelled Random Vancomycin Legionella Source Pending Legionella Culture Pending Urine Legionella Ag Resp Virus Cult Rapid Pending Viral Specimen Source Pending 03/13/23 03/13/23 03/13/23 00:13 04:05 04:05 WBC 56.99 H* D RBC 2.43 L Hgb 7.6 L POC Hgb Hct 24.5 L POC Hct MCV 100.8 H MCH 31.3 MCHC 31.0 L RDW Std Deviation 86.4 H RDW Coeff of Leonela 23.9 H Plt Count 21 L* MPV 10.1 Immature Gran % (Auto) 0.1 Neut % (Auto) 1.6 Lymph % (Auto) 79.8 Hughes % (Auto) 18.5 Eos % (Auto) 0.0 Baso % (Auto) 0.0 Neut # (Auto) 0.89 L* Lymph # (Auto) 46.42 H Hughes # (Auto) 10.78 H Eos # (Auto) 0.01 Baso # (Auto) 0.02 Immature Gran # (Auto) 0.03 Anisocytosis Present Peripher Smr Path Cons Pending Sample Site POC pH POC pCO2 POC pO2 POC HCO3 POC Total CO2 POC Base Excess ABG pH (Temp Correct) ABG pCO2 (Temp Corrct POC ABG pO2 at Pt Temp POC ABG O2 Sat Alphonso Test O2 Delivery Device POC O2 Rate POC FiO2 Tidal Volume PEEP POC Sodium Sodium 134 L POC Potassium Potassium 5.5 H Chloride 99 Carbon Dioxide 21 Anion Gap 14 H BUN 67 H Creatinine 3.81 H D Est Cr Clr Drug Dosing 23.6 Est GFR ( Amer) 18.0 Est GFR (Non-Af Amer) 15.5 BUN/Creatinine Ratio 17.6 Glucose 233 H POC Glucose POC Glucose (other) Uric Acid Calcium 8.4 L Phosphorus Magnesium Total Bilirubin Direct Bilirubin AST ALT Alkaline Phosphatase Ammonia Total Protein Albumin Fluid Neutrophils % Fluid Lymphocytes % Fluid Eosinophils % Fluid Basophils % Fl Monocyt/Macrophag % Fluid Other Cells % Fluid Epithelial Cells Fluid Comment Random Vancomycin 16.3 Legionella Source Legionella Culture Urine Legionella Ag Resp Virus Cult Rapid Viral Specimen Source 03/13/23 03/13/23 03/13/23 04:05 05:27 06:02 WBC RBC Hgb POC Hgb 8.5 L Hct POC Hct 25 L MCV MCH MCHC RDW Std Deviation RDW Coeff of Leonela Plt Count MPV Immature Gran % (Auto) Neut % (Auto) Lymph % (Auto) Hughes % (Auto) Eos % (Auto) Baso % (Auto) Neut # (Auto) Lymph # (Auto) Hughes # (Auto) Eos # (Auto) Baso # (Auto) Immature Gran # (Auto) Anisocytosis Peripher Smr Path Cons Sample Site Art Line POC pH 7.26 L POC pCO2 52 H POC pO2 84 POC HCO3 24 POC Total CO2 25 POC Base Excess -3.0 ABG pH (Temp Correct) 7.254 L ABG pCO2 (Temp Corrct 54 H POC ABG pO2 at Pt Temp 88 POC ABG O2 Sat 94.0 Alphonso Test NA O2 Delivery Device Ventilator POC O2 Rate 24 POC FiO2 50 Tidal Volume 450 PEEP 17 POC Sodium 131 L Sodium 133 L POC Potassium 5.5 H Potassium 5.5 H Chloride 99 Carbon Dioxide 22 Anion Gap 12 H BUN 69 H Creatinine 3.88 H Est Cr Clr Drug Dosing 23.2 Est GFR ( Amer) 17.6 Est GFR (Non-Af Amer) 15.2 BUN/Creatinine Ratio 17.8 Glucose 275 H POC Glucose 300 H POC Glucose (other) Uric Acid 6.9 Calcium 7.9 L Phosphorus 7.7 H Magnesium 2.2 Total Bilirubin 0.7 Direct Bilirubin 0.4 H AST 25 ALT 14 Alkaline Phosphatase 71 Ammonia Total Protein 5.8 L Albumin 2.8 L Fluid Neutrophils % Fluid Lymphocytes % Fluid Eosinophils % Fluid Basophils % Fl Monocyt/Macrophag % Fluid Other Cells % Fluid Epithelial Cells Fluid Comment Random Vancomycin Legionella Source Legionella Culture Urine Legionella Ag Resp Virus Cult Rapid Viral Specimen Source PG Care Time/CCT Total # of Minutes Spent Total Time Spent with Patient: Total time spent is greater than 50% in coordination of care (as documented) at patient's floor/unit and/or counseling patient: Coding Level of Care Code 57610 SUB INP/OBS CARE 3/50MIN Diagnoses Acute hyperkalemia E87.5 ANJUM (acute kidney injury) N17.9 At high risk of tumor lysis syndrome Z91.89
--- NOTE | 2023-03-13 11:37 | Infectious Disease Progress Nt ---
Date of Service March 13, 2023 Assessment & Plan (1) Acute hypoxic respiratory failure: (2) Neutropenic fever: (3) Enterovirus infection: (4) Rhinovirus infection: (5) Immunoglobulin deficiency, acquired: Plan This is a 67-year-old male with past medical history of CLL with pancytopenia, recent spontaneous intrapelvic hemorrhage presents with worsening cough, fever and sob..He was admitted to [facility] from 01/30-02/02 for pneumonia and michelle and treated with Augmentin and dexamethasone for increasing bulky adenopathy. His is at bedside and provides additional history. For the last 1 month he has been more fatigue with increased BL LE swelling . His chemotherapy has been on hold after diagnosed with spontaneous intrahepatic hematoma in 12/2022. He was diagnosed with Covid 19 on 02/20 and completed 5 days of Paxlovid. He denies requiring supplemental o2 or much respiratory symptoms at the time. His and other family member were also Covid positive. On 03/05, he traveled to [place] to see a new oncologist to discuss new therapies. While in office, he developed fever, and sob. He was sent the the Ed there for Cxr which showed pneumonia. He received 1 dose Ceftriaxone and azithromycin and was discharged on Augmentin and azithromycin ( he and wanted to come back to [place]) . His symptoms worsened so he presented to [facility]. In the Ed he had increased work of breathing/tachypneic. He was initially on bipap. Bio fire + covid, +enterovirus. Procalcitonin 1.8. Cxr shows patchy bibasilar and left midlung airspace opacities and bilateral hilar lymphadenopathy progressed since 01/07/23. He is febrile and neutropenic. He was started on IV vanco/cefepime/azithromycin. Mrsa nares negative, so vancomycin discontinued. Bc and UC sterile to date. ID consulted for neutropenic fever. On exam he is uncomfortable and short of breath. He denies any travel except to [place] last week for onc visit. He endorses LE swelling and cough. He denies chest pain, rash , LARA, pain at port site, rashes. He has anxiety related to his disease process and needing hospitalization He remains febrile with Tm, 39.1 WBc 28 k, plts 20k, ANC 0.37 on my initial visit Micro Bc / NGTD UC 10/ sterile biofire +03/07 + covid 19, +enterovirus ( also + 11/2022) mrsa nares 03/08 negative BC 03/10 CONS 1/4 bottles Abx Vanco 03/07, restarted 03/12- ongoing Cefepime 03/07-03/11 Azith 03/07- ongoing meropenem 03/11-ongoing voriconazole 03/11-ongoing # CLL # Multifocal Pneumonia #Acute hypoxic respiratory failure # Neutropenic fever # Chronic neutropenia #Septic shock #Covid on 02/20- sp paxlovid. out of window for other covid therapies #Recurrent Enterovirus positivity on biofire ( likely from viral shedding since immunocompromised ) #Port in place He was diagnosed with Covid 19 about 3 weeks ago and is out the window for additional Covid therapies. His test remains positive and is expected as he is immunocompromised. Additionally, his biofire is again positive for enterovirus.THis is likely secondary to viral shedding in an immunocompromised pt. It could also represents infection. There is no anti viral treatment for enterovirus. I think his current process is most likely secondary to a superimposed Bacterial infection post recent Covid 19 infection. He is neutropenic and febrile, so he was covered bacteria including Pseudomas. IV vancomycin was initially discontinued as MRSA nares was negative. Despite broad abx coverage, he remained febrile with tenous respiratory status. Voriconazole was added as he is chronically neutropenic and at risk for Aspergillus infection. Despite this his condition worsened. Repat Procal increased to 5. 03/12 intubated, CT lung with progressive lymphadenopathy and multilobar pneumonia.. Ct head no acute process. + Moderate to severe mucosal thickening of the paranasal sinuses with air-fluid levels likely representing acute on chronic process. Ct abd with bulky adenopathy of ab/pelvis . He underwent bronchoscopy with BAL: studies and cx obtained, He is now in septic shock with multiorgan failure. He is on 2 pressors and oliguric with worsening renal function . Repeat BC with 1/4 bottles of staph epi (likely a contaminant) but in setting of septic shock with port, will await repeat BC results before d/c vanco Recommendation. -Fullow up Bronch/BAl Gram stain, bacterial fungal cx, AFB smear and culture, cell count/differential cont vanco, pending repeat BC -Continue meropenem dose for current renal function 500 mg iv q 8hrs -Continue voriconazole He has CLL with prolonged neutropenia putting him a risk for invasive aspergillosis. since now intubated, will d/w pharm if can oral can be restarted -Pending GCSF -Continue azithromycin pending legionella ag. 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 Jaime Baeza MD, MPH Infectious Disease [facility], [facility] Call [phone] with questions Admission and Anticipated Discharge Date Admission Date: March 07, 2023 Subjective Subsequent visit was provided via telemedicine using two-way real-time interactive telecommunication between the patient and the telemedicine provider. For the duration of the visit, the provider was performing the assessment from a different facility than the patient. This includesuse of bluetooth stethoscope forauscultationperformed by the telepresenter that the telemedicine provider can hear if described in the physical exam. T[employer] R[employer] Walker contact information: Please call [facility] Call Center [phone]. (Phone Number For Physician Use Only) After establishing a telemedicine visit, patient was: Patient was verified with two unique identifiers Time Spent with Patient: Subsequent => 35 min Pressors started o/n ; intubated, sedated . Remains febrile. TM 38.2 But improved curve S/P broch and bal 03/12 oliguric, cr 3.88, lfts wnl , wbc 57 k plts21 k , K 5.5 Review of System Unable to obtained 2/2 MS Physical Exam Physical Exam: Gen - intubated on [facility] vent lung - Left chest port, , RIJ Abd- soft L ostomy Ext - BL LE edema Skin - right LE bruising Neuro-sedated Results & Data Vital Signs (Past 12 Hours) Vital Signs Temp Pulse Resp BP Pulse Ox FiO2 03/13/23 11:24 86 25 H 98 60 03/13/23 07:16 92 H 28 H 95 60 03/13/23 06:58 38.2 C H 03/13/23 06:30 85 28 H 98 03/13/23 06:00 86 25 H 97 10/12/23 06:00 125/63 03/13/23 05:30 86 24 97 03/13/23 05:00 126/64 03/13/23 06:00 50 03/13/23 05:00 86 24 97 03/13/23 04:30 86 24 97 03/13/23 04:00 88 24 97 03/13/23 04:00 37.7 C H 131/71 03/13/23 03:30 88 24 97 03/13/23 03:00 88 24 97 03/13/23 03:00 133/65 03/13/23 02:30 36.8 C 87 24 96 03/13/23 02:00 36.7 C 87 24 100 03/13/23 02:00 135/64 03/13/23 02:31 88 24 96 50 03/13/23 00:00 80 03/13/23 01:30 36.7 C 87 24 100 03/13/23 01:00 36.8 C 87 24 100 03/13/23 01:00 139/70 03/13/23 00:30 36.9 C 87 24 100 03/13/23 00:00 87 24 99 03/13/23 00:00 137/69 03/13/23 00:00 91 H Laboratory Results Short CBC 03/13/23 Range/Units 04:05 WBC 56.99 H* D (4.8-10.8) K/ul Hgb 7.6 L (14.0-18.0) g/dl Hct 24.5 L (42.0-52.0) % Plt Count 21 L* (130-400) K/uL BMP 03/12/23 03/13/23 03/13/23 17:54 00:13 04:05 Sodium 133 L 134 L 133 L Potassium 6.2 H* 5.5 H 5.5 H Chloride 103 99 99 Carbon Dioxide 19 L 21 22 BUN 67 H 67 H 69 H Creatinine 3.38 H D 3.81 H D 3.88 H Glucose 219 H 233 H 275 H Calcium 8.1 L 8.4 L 7.9 L Liver Function 03/13/23 Range/Units 04:05 Total Bilirubin 0.7 (0.2-1.0) mg/dl Direct Bilirubin 0.4 H (0-0.2) mg/dl AST 25 (13-39) U/L ALT 14 (7-52) U/L Alkaline Phosphatase 71 (34-104) U/L Albumin 2.8 L (3.4-5.0) gm/dl Diagnostic Findings Microbiology 03/12/23 Unknown Bronch Wash,Left Lower Lobe Gram Stain - Final 03/12/23 Unknown Bronch Wash,Left Lower Lobe Fungal Smear - Final 03/12/23 06:52 Blood Aerobic Blood Culture - Preliminary No growth in Aerobic bottle after 24 hours. 03/12/23 06:52 Blood Anaerobic Blood Culture - Preliminary No growth in Anaerobic bottle after 24 hours. 03/12/23 06:51 Blood Aerobic Blood Culture - Preliminary No growth in Aerobic bottle after 24 hours. 03/12/23 06:51 Blood Anaerobic Blood Culture - Preliminary No growth in Anaerobic bottle after 24 hours. 03/07/23 17:23 Blood Aerobic Blood Culture - Final No growth in Aerobic bottle after 5 days. 03/07/23 17:23 Blood Anaerobic Blood Culture - Final No growth in Anaerobic bottle after 5 days. 03/10/23 22:30 Blood Aerobic Blood Culture - Preliminary Coag neg staph not lugdunensis 03/10/23 22:30 Blood Anaerobic Blood Culture - Preliminary No growth in Anaerobic bottle after 48 hours. 03/10/23 13:08 Blood Aerobic Blood Culture - Preliminary No growth in Aerobic bottle after 48 hours. 03/10/23 13:08 Blood Anaerobic Blood Culture - Final 03/10/23 13:08 Blood Fungal Smear - Final 03/07/23 19:05 Urine,Clean Catch Urine Culture - Final No growth - less than 1,000 colonies/mL. Chest X-Ray 03/10/23 15:32 XR chest 1V portable HISTORY: 67 years-old Male hypoxic resp failure acute hypoxia COMPARISON: Chest radiograph studies 03/07/2023 and 01/07/2023, PET/CT 12/25/2022. TECHNIQUE: AP view of the chest FINDINGS: Cardiac silhouette is enlarged. Left subclavian Ijedyl-v-Bptb catheter. Bilateral hilar prominence redemonstrated. There are patchy ill-defined bibasilar and left midlung predominant opacities. Mild right hemidiaphragm elevation. No pneumothorax or large pleural effusion. Degenerative changes of the shoulders and spine. IMPRESSION: 1. Progressive airspace opacities, most pronounced in the left midlung and right lung base suspicious for multifocal pneumonia. 2. Bilateral hilar enlargement is again noted which likely represents underlying lymphadenopathy and may be related to disease progression in this patient with known leukemia. Findings are progressed compared to 01/07/2023. Follow-up with oncology as needed. ACT 112: Negative or not required by law. The above report was generated using voice recognition software. It may contain grammatical, syntax or spelling errors. Electronically signed by: Benedict Anderson M.D. 03/10/2023 4:41 PM Chest X-Ray 03/12/23 11:50 XR chest 1V portable HISTORY: Respiratory failure. intubation COMPARISON: Chest 03/10/2023. FINDINGS: The endotracheal tube terminates 8.6 cm from the gabino. This should be advanced by approximately 4 to 5 cm. Nasogastric tube terminates below the diaphragm. The tip is not included on this study. A left-sided Port-A-Cath terminates in the SVC. This remains unchanged. There are low lung volumes. No pneumothorax. The cardiac silhouette remains enlarged. Suspect small bilateral pleural effusions. Bilateral mid to lower lung zone airspace opacities persist. This is most pronounced within the left midlung zone. Bilateral mediastinal and hilar prominence again noted. This could represent underlying lymphadenopathy. IMPRESSION: 1. The endotracheal tube terminates 8.6 cm from the gabino. This should be advanced by approximately 4 to 5 cm. 2. The nasogastric tube terminates below the diaphragm. 3. Bilateral airspace opacities persist. 4. Mediastinal and hilar fullness suggests underlying lymphadenopathy. ACT 112: Negative or not required by law. Electronically signed by: Eron Abdalla M.D. 03/12/2023 12:44 PM KUB X-Ray 03/12/23 11:51 KUB CLINICAL HISTORY: OG placement COMPARISON STUDY: CT of the abdomen and pelvis January 30, 2023. FINDINGS: The tip of the nasogastric tube is within the distal body of the stomach. Visualized bowel gas pattern is unremarkable. IMPRESSION: Tip of nasogastric tube within the distal body of the stomach. ACT 112: Negative or not required by law. Electronically signed by: Pito Curiel M.D. 03/12/2023 12:33 PM Abdomen/Pelvis CT 03/12/23 12:[address] WITHOUT CONTRAST CT DOSE: HISTORY: fever, acute renal failure TECHNIQUE: Multiaxial CT images of the abdomen and pelvis were performed without contrast. A dose lowering technique was utilized adhering to the principles of ALARA. COMPARISON STUDY: Abdomen and pelvis CT 01/30/2023. FINDINGS: Bibasilar consolidation most pronounced on the left likely represents a pneumonia. This is better appreciated on the same day chest CT. Partially visualized lymphadenopathy within the lower chest again noted. Nasogastric tube terminates in the distal stomach. No pneumoperitoneum. No pneumatosis. No acute fractures identified. Small fat-containing umbilical hernia again noted. There is a large left lower quadrant parastomal hernia containing multiple loops of nonobstructed bowel. This remains unchanged. There is moderate body wall edema which has progressed. The bladder is decompressed by Marin catheter. Mass effect along the bladder from the pelvic lymphadenopathy has slightly improved. Hyperd ense material within the gallbladder may represent sludge or small stones. This remains unchanged. The unenhanced liver and adrenal glands are unremarkable. No hydronephrosis. Moderate bilateral perinephric edema has slightly progressed. The spleen is enlarged measuring 16 cm in length. This has slightly progressed. The unenhanced pancreas appears unremarkable. Normal caliber abdominal aorta. Trace pelvic free fluid. Suboptimal evaluation for bowel pathology due to the lack of intravenous and oral contrast. However, no evidence for a bowel obstruction. Questionable thickening of the ascending colon is likely due to the patient's underlying edema. No definite bowel wall thickening identified. Bulky lymphadenopathy seen throughout the abdomen and pelvis is similar to the prior study. Small amount of residual right extraperitoneal hemorrhage adjacent to Large right pelvic lymph node has improved. This is primarily low density and therefore favors old hemorrhage. No evidence for acute hemorrhage at this time. IMPRESSION: 1. Consolidative airspace opacities within the lung bases are better appreciated on the same day chest CT. This likely represents a pneumonia. 2. Bulky lymphadenopathy within the abdomen and pelvis persists. This similar to the prior study. 3. Moderate body wall edema has progressed. 4. Splenomegaly has slightly progressed. 5. Questionable thickening of the ascending colon is likely due to the patient's edematous state. Otherwise, no definite bowel wall thickening or obstruction. 6. Near-complete resolution of the small amount of chronic residual hemorrhage within the right pelvic sidewall. No progressive or acute retroperitoneal hemorrhage identified. 7. Additional findings as described above. ACT 112: Negative or not required by law. Electronically signed by: Eron Abdalla M.D. 03/12/2023 1:[address] 03/12/23 12:51 CT head/brain wo con CLINICAL HISTORY: 67 years-old Male with ALOC. Acutely altered mental status TECHNIQUE: Multiple axial CT images of the head were obtained without contrast. A dose lowering technique was utilized adhering to the principles of ALARA. COMPARISON: Brain MRI 02/23/2016 FINDINGS: No acute intracranial hemorrhage, midline shift, intracranial mass, hydrocephalus, territorial ischemia or abnormal extra-axial collection. Mild progression of the chronic microvascular ischemic disease. Chronic appearing left periventricular lacunar infarct. Dense cerebral vascular calcifications. The calvarium is intact. Right-sided lens repair. Small right mastoid effusion. Moderate to severe mucosal thickening of the paranasal sinuses with air-fluid levels likely representing acute on chronic process. IMPRESSION: No acute intracranial abnormality. ACT 112: Negative or not required by law. The above report was generated using voice recognition software. It may contain grammatical, syntax or spelling errors. Electronically signed by: Benedict Anderson M.D. 03/12/2023 1:[address] 03/12/23 12:55 CT OF THE CHEST WITHOUT IV CONTRAST CLINICAL HISTORY: Hypoxia. CLL. COMPARISON STUDY: Chest CT October 16, 2022. Chest radiograph performed earlier today. PET/CT December 25, 2022. CT DOSE: 3636.57 mGy.cm TECHNIQUE: Axial images of the chest were obtained without IV contrast. Images were reviewed in the axial, sagittal, and coronal planes. IV contrast was not administered for this examination. Automated exposure control was utilized for the study. A dose lowering technique was utilized adhering to the principles of ALARA. FINDINGS: The tip of the endotracheal tube is 5.8 cm above the gabino. Tip of nasogastric tube is within the distal body of the stomach. There is moderate cardiomegaly and extensive coronary artery calcification. There is no pericardial effusion. There is no pneumothorax. Trace left pleural effusion. There has been interval dominant of extensive multifocal consolidation within the lungs. The left lower lobe is nearly completely opacified with air bronchograms. Extensive left upper lobe and right lower lobe consolidation is present. There are additional scattered alveolar opacities within the lungs. No cavitation is present.. No central obstructing mass is identified. There has been significant progression of extensive lower cervical and thoracic lymphadenopathy since PET/CT of December 25, 2022. Index right axillary node measures 8.5 x 4.2 cm. Index left axillary node measures 4.4 x 4.1 cm. It previously measured 3.7 x 3.6 cm. No suspicious lesions within the bony thorax are noted. Upper abdominal adenopathy is also significantly progressed. Splenomegaly has increased. IMPRESSION: 1. Interval development of extensive multifocal consolidation, greatest within the left lung. Associated air bronchograms. The findings favor pneumonia or aspiration pneumonitis. No central obstructing mass. 2. Significant progression of lymphadenopathy since PET/CT of December 25, 2022. This is consistent with the history of lymphoma. 3. Tip of endotracheal tube 5.8 cm above the gabino. The tube could be advanced 3 cm. ACT 112: Negative or not required by law. Electronically signed by: Pito Curiel M.D. 03/12/2023 1:55 PM Chest X-Ray 03/12/23 14:05 XR chest 1V portable HISTORY: 67 years-old Male central line placement right IJ status post placement of a right IJ central venous catheter COMPARISON: Chest CT of same day TECHNIQUE: AP view of the chest FINDINGS: Cardiac silhouette is enlarged. Endotracheal tube overlies the midline, approximately 7.4 cm superior to the gabino. A right IJ central venous catheter is noted in the expected location of the upper SVC. Left subclavian Gfyrgh-u-Sbni catheter is noted in the mid aspect of the SVC. Distal tip enteric tube projects inferiorly outside the juwgg-ga-odeh. Distal abdominal lymphadenopathy with mixed interstitial and alveolar opacities noted. Dense airspace consolidation within the lung bases and left midlung are again seen. Small pleural effusions. Degenerative changes of the shoulders and spine. IMPRESSION: 1. Lines and tubes as above. 2. No pneumothorax. 3. Persistent mixed interstitial and alveolar opacities suggestive of pneumonia with small pleural effusions. 4. Hilar lymphadenopathy. ACT 112: Negative or not required by law. The above report was generated using voice recognition software. It may contain grammatical, syntax or spelling errors. Electronically signed by: Benedict Anderson M.D. 03/12/2023 3:05 PM Chest X-Ray 03/13/23 07:00 SINGLE VIEW CHEST CLINICAL HISTORY: Respiratory failure FINDINGS: An AP, portable, upright chest radiograph is compared to chest x-ray and chest CT dated 03/12/2023. An endotracheal tube, enteric tube, a right internal jugular central venous catheter, and a left subclavian central venous infusion port are unchanged in position. The heart is enlarged. The pulmonary vasculature is noncongested. Multifocal airspace consolidation is again seen throughout both lungs. This is similar to previous. No pneumothorax is seen. The skeletal structures are osteopenic. The bony thorax is grossly intact. IMPRESSION: 1. Multifocal airspace consolidation has not significantly changed from yesterday. 2. Stable lines and tubes. 3. Cardiomegaly without radiographic evidence of congestive failure. ACT 112: Negative or not required by law. Electronically signed by: Neymar Cohn M.D. 03/13/2023 7:22 AM Medications Administered Home Medications Medication Instructions Recorded Confirmed Last Taken hydrocortisone 2.5 % topical cream 1 applic topical BID PRN Eczema 07/27/19 03/07/23 11/10/19 09:00 acetaminophen 325 mg capsule 650 mg PO Q6H PRN Fever Or Pain 12/10/19 03/07/23 07/24/20 08:00 (Tylenol) sildenafil 25 mg tablet 25 mg PO DAILY PRN sexual activity 06/19/21 03/07/23 Unknown #20 tabs blood-glucose meter #1 ea 11/20/21 03/07/23 Unknown lancets (Accu-Chek Softclix #100 ea 11/20/21 03/07/23 Unknown Lancets) blood sugar diagnostic #300 ea 11/23/21 03/07/23 Unknown glimepiride 2 mg tablet 4 mg PO QAM #180 tabs 02/05/22 03/07/23 03/07/23 multivitamin 1 tab PO DAILY 02/21/22 03/07/23 03/07/23 acalabrutinib 100 mg capsule 0 mg PO DAILY 06/20/22 03/07/23 07/31/22 (Calquence) oxycodone 5 mg tablet 5 mg PO Q4H PRN Pain 01/30/23 03/07/23 Unknown allopurinol 200 mg tablet 200 mg PO BID #180 tabs 02/28/23 03/07/2303/07/23 amoxicillin 875 mg-potassium 1 tab PO Q12H 03/07/23 03/07/23 03/07/23 clavulanate 125 mg tablet magnesium 200 mg tablet 400 mg PO DAILY 03/07/23 03/07/23 03/07/23 atorvastatin 40 mg tablet 40 mg PO QAM #90 tabs 03/13/23 Unknown levothyroxine 50 mcg tablet 50 mcg PO QAM #90 tabs 03/13/23 Unknown Active Medications Generic Name Dose Route Start Last Admin Trade Name Freq PRN Reason Stop Dose Admin Dextrose 25 - 50 ml 03/07/23 22:54 03/08/23 06:07 Dextrose 50% 50 Ml Syringe IV 04/06/23 22:53 50 ml UD PRN Administration Hypoglycemia Protocol Protocol Fentanyl Citrate 50 mcg 03/12/23 11:19 03/13/23 02:00 Fentanyl Bolus From Bag IV 03/26/23 11:18 50 mcg Q60M PRN Administration Pain or Agitation Azithromycin 250 mg/ Dextrose 252.5 mls @ 125 mls/hr 03/08/23 18:00 03/12/23 21:06 IV 03/15/23 17:59 Infused Q24H BELLA Infusion Meropenem 500 mg/ Syringe 10 mls @ 2 mls/min 03/11/23 14:00 03/13/23 06:42 IV 03/18/23 13:59 2 mls/min Q8H BELLA Administration Protocol Propofol 1,000 mg in 100 mls @ 19.71 mls/hr 03/12/23 11:30 03/13/23 09:11 Diprivan IV 03/15/23 11:29 30 mcg/kg/min .Q5H5M BELLA 19.7 mls/hr Administration Protocol 30 MCG/KG/MIN Fentanyl Citrate 2,500 mcg in 250 mls @ 12.5 mls/hr 03/12/23 11:30 03/13/23 07:12 Fentanyl Citrate IV 03/26/23 11:29 125 mcg/hr .Q20H BELLA 12.5 mls/hr Titration Protocol 125 MCG/HR Voriconazole 350 mg/ Sodium 100 mls @ 66.667 mls/hr 03/12/23 13:00 03/13/23 03:55 Chloride IV 03/19/23 12:59 Infused Q12H BELLA Infusion Acetaminophen 1,000 mg in 100 mls @ 400 mls/hr 03/12/23 20:25 03/13/23 09:32 Ofirmev IV 03/15/23 20:24 Infused Q8H PRN Infusion Fever Norepinephrine Bitartrate 4 mg in 250 mls @ 65.7 mls/hr 03/12/23 20:45 03/13/23 09:12 Levophed/D5w IV 04/11/23 20:44 0.16 mcg/kg/min .Q3H49M BELLA 65.7 mls/hr Administration Protocol 0.16 MCG/KG/MIN Vasopressin 20 units/ Sodium 101 mls @ 12.12 mls/hr 03/12/23 21:45 03/13/23 07:12 Chloride IV 04/11/23 21:29 0.04 unit/min .Q8H20M BELLA 12.1 mls/hr Infusion 0.04 UNIT/MIN Sodium Bicarbonate 150 meq/ 1,150 mls @ 100 mls/hr 03/12/23 21:45 03/13/23 09:11 Sterile Water IV 04/11/23 21:29 100 mls/hr .[id number] BELLA Administration Insulin Human Regular 250 250 mls @ 4.1 mls/hr 03/13/23 06:45 03/13/23 07:12 units/ Sodium Chloride IV 04/12/23 06:44 4.1 units/hr .Q24H BELLA 4.1 mls/hr Titration Protocol 4.1 UNITS/HR Insulin Aspart 0 units 03/13/23 07:30 03/13/23 09:13 Insulin Aspart Per Unit Charge SC 04/12/23 07:29 Not Given ACHS BELLA Miscellaneous 15 - 30 gm 03/07/23 22:54 03/08/23 17:12 Carbohydrates For Hypoglycemia PO 04/06/23 22:53 15 gm UD PRN Administration Hypoglycemia Protocol Nutritional Formula 1,000 ml 03/12/23 17:15 03/12/23 17:42 Peptamen Intense Vhp 1.0 Daniel 1,000 Ml Bag OG 04/11/23 17:14 1,000 ml .See Protocol BELLA Administration Protocol Ondansetron HCl 4 mg 03/07/23 22:54 03/10/23 11:16 Ondansetron Inj 2 Mg/Ml 2 Ml Vial IV 04/06/23 22:53 4 mg Q6H PRN Administration Nausea Propofol 20 mg 03/12/23 11:19 03/13/23 00:30 Propofol Bolus From Bag IV 03/15/23 11:18 20 mg Q5M PRN Administration Sedation Sterile Water 30 ml 03/12/23 17:15 03/12/23 17:42 Tube Feeding Water Flush OG 04/11/23 17:14 30 ml Q4 BELLA Administration
[2023-03-13] MEDS ORDERED: VANCOMYCIN HCL 1,000 MG in SODIUM CHLORIDE 0.9% 250 ML IV SCH (12:00)
--- NOTE | 2023-03-13 12:39 | Electrocardiogram Report ---
Test Reason : Blood Pressure : / mmHG Vent. Rate : 088 BPM Atrial Rate : 088 BPM P-R Int : 204 ms QRS Dur : 080 ms QT Int : 362 ms P-R-T Axes : 053 028 082 degrees QTc Int : 438 ms Normal sinus rhythm Low voltage QRS Septal infarct (cited on or before 07-MAR-2023) Abnormal ECG When compared with ECG of 07-MAR-2023 20:47, Questionable change in initial forces of Septal leads Confirmed by Rolo Michele ([id number]) on 03/13/2023 12:38:39 PM Referred By: REFERRED SELF Confirmed By:Rolo Michele
--- NOTE | 2023-03-13 13:35 | Procedure Note ---
Procedure Note Date of Service March 12, 2023 Note Procedure date: Noted above Procedure: Central venous access Pre-procedure indication: Continued febrile neutropenia, positive blood culture, need for additional access Post-procedure Diagnosis: same as above Prior to Procedure: Informed Consent: The risks, benefits, indications, potential complications, and alternatives were explained to the patient's and informed consent obtained. Attending Staff: Ailce Brady DO Resident/APC: Not applicable Skin Prep: Chlorhexidine Anesthesia: 4 mL 1% lidocaine without epinephrine The identity of the patient was confirmed and a bedside time out was performed. Description of Procedure: After sterile prep and sterile drape utilizing standard sterile technique the superficial skin of the right internal jugular area was anesthetized. The target vessel was identified and entered with an 18- gauge needle. Dark venous blood return was noted. A guidewire was inserted through the needle and into the vessel. The needle was withdrawn and a skin narciso was made. A tissue dilator was advanced via Seldinger technique and removed. A triple lumen catheter was inserted via Seldinger technique and the guidewire removed. All ports rosalba and flushed easily. A Biopatch was placed, and the catheter was secured via silk suture and commercial securement device. A sterile dressing was then applied. This was performed under dynamic ultrasound guidance Complications: None Estimated blood loss: [Trace] Patient tolerated the procedure well. Coding CPT Codes Tubes, Drains, and Vasc Access - Tubes, Drains, and Vasc Access: [id number] Insertion Of Non-tunneled Catheter Age 6 Yrs> ([id number]) [facility] [place] Procedure Codes (Charges) Tubes, Drains, and Vasc Access Procedure 1: Tubes, Drains, and Vasc Access: [id number] Insertion Of Non-tunneled Catheter Age 6 Yrs>
--- NOTE | 2023-03-13 13:50 | Procedure Note ---
Procedure Note Date of Service March 12, 2023 Note Procedure date: Noted above Procedure: fiberoptic bronchoscopy Pre-procedure indication: Ongoing febrile neutropenia, acute hypoxic respiratory failure, concern for left lower lobe pneumonia Post-procedure Diagnosis: same as above Prior to Procedure: Informed Consent: The risks, benefits, indications, potential complications, and alternatives were explained to the patient's and informed consent obtained. Attending Staff: Alice Brady DO Resident/APC: Not applicable Skin Prep: Not applicable Anesthesia: Continuous infusion The identity of the patient was confirmed and a bedside time out was performed. Description of Procedure: Fiberoptic bronchoscopy was performed via endotracheal tube. Bronchioalveolar lavage of the left lower lobe was performed. Findings included: Tenacious anticipated secretions in the distal left lower lobes. After obtaining first aliquot of fluid patient's O2 saturation dipped to the low 90s and high 89, he would also vagal during the procedure since we had not for microbiological testing the procedure was aborted and patient allowed to recover. Complications: None Specimens: Bronchial washings sent for culture and Gram stain, fungal elements, AFB stain and culture, cell count differential: Informed by cytology that there was not enough specimen for cell count differential. Estimated blood loss: Zero Coding CPT Codes Pulmonary/Thoracic - Pulmonary and Thoracic: 01016 Dx bronchoscopy/BAL ([id number]) [facility] [place] Procedure Codes (Charges) Pulmonary/Thoracic Procedure 1: Pulmonary and Thoracic: 15583 Dx bronchoscopy/BAL
--- NOTE | 2023-03-13 14:04 | Hospitalist Progress Note ---
Date of Service March 13, 2023 Assessment & Plan (1) Septic shock: Plan: this immunocompromised patient is now in severe sepsis, septic shock He is in multiorgan failure On multiple antibiotics, antifungals per ID recommendations On multiple pressors Stunt Performer, pecan gatherer, oncologist, infectious disease on board Patient is getting sicker despite all efforts Prognosis poor since he is immunocompromised (2) Pneumonia: Plan: 67yo male with CLL, neutropenia (ANC 0.7), thrombocytopenia and anemia presenting with fever, cough, SOB. patient was initially on BIPAP for increased work of breathing. BioFire panel with +Covid-19 as well as Enterovirus. Possible bacterial component as well given elevation of Procalcitonin Immunocompromised host with neutropenic fever on broad-spectrum antibiotics and antifungals Infectious disease on board. On meropenem. Voriconazole started by infectious disease. Monitor daily EKG for QTc prolongation On vancomycin. Blood culture 1 out of 4 bottles growing staph. Likely contaminant. Repeat blood cultures ordered by ID. - follow up on fungal culture, Legionella, BD glucan CT chest 03/12 shows extensive multifocal consolidation. (3) Neutropenic fever: Plan: covered with broad-spectrum antibiotics and antifungals Oncology on board, recommended Neupogen. I ordered it. infectious disease on board Continues to spike fevers (4) Acute hypoxic respiratory failure: Plan: Intubated 03/12 Bronchoscopy done 03/12 CT chest showed multifocal pneumonia, worse in the left Stunt Performer on board (5) ANJUM (acute kidney injury): Plan: on CKD stage III Creatinine worsening Urine output decreasing Hyperkalemic Arborist Representative on board Per pecan gatherer, declined transfer to a tertiary care center for continuous dialysis At risk for tumor lysis syndrome rasburicase may be offered for uric acid greater than 12. (6) COVID-19: Plan: Patient diagnosed with Covid on 02/20/23. He was treated with Paxlovid. -Maintain isolation precautions for now - patient immunocompromised with underlying malignancy - prolonged isolation (7) CLL (chronic lymphocytic leukemia): Plan: Patient with chronic anemia, thrombocytopenia. No active bleeding -Monitor H/H - transfuse for Hgb <7 -Maintain Neutropenic isolation precautions Appreciate oncology input Ordered Neupogen today per oncology recommendation (8) Enterovirus infection: Plan: continue supportive treatment (9) Acute diastolic CHF (congestive heart failure): Plan: patient appeared to be volume overloaded and responded to A few doses of Lasix during this hospital stay Echocardiogram showed preserved EF Currently needing pressor support to maintain blood pressure (10) T2DM (type 2 diabetes mellitus): Plan: -ISS as needed (11) Elevated troponin: Plan: Patient with minimal elevation of troponin. 28.5 --> 31.3. No acute ischemic changes on EKG. -Trend troponin - echo showed no wall motion abnormalities or depressed EF (12) Hypothyroidism: Plan: Chronic hold Synthroid for now (13) Sepsis: (14) Immunoglobulin deficiency, acquired: Plan F/E/N - Saline lock. Monitor electrolytes and replete as needed. CC diet as tolerated Ppx - SCDs (Lovenox discontinued due to thrombocytopenia and anemia) is aware of poor prognosis. Admission and Anticipated Discharge Date Admission Date: March 07, 2023 Subjective patient is now intubated, sedated, on multiple pressors. Review of Systems Review of Systems: Unobtainable due to endotracheal tube Physical Exam Physical Exam: General: intubated, sedated Heart: S1, S2/regular rate and rhythm, no murmur rubs or gallops Lungs: bilateral crackles. Abdomen: Soft/nontender/nondistended. No hepatosplenomegaly Extremities: No clubbing/cyanosis. 2+ pitting bilateral edema Behavior: unable to assess as sedated Results & Data Results & Data Vital Signs (Past 12 Hours) Vital Signs Temp Pulse Resp BP Pulse Ox FiO2 03/13/23 11:00 86 24 98 03/13/23 11:00 119/55 L 03/13/23 10:00 91 H 24 98 03/13/23 10:00 111/58 L 03/13/23 09:00 91 H 28 H 98 03/13/23 09:00 114/59 L 03/13/23 08:00 91 H 28 H 97 03/13/23 08:00 118/59 L 03/13/23 07:00 86 28 H 97 03/13/23 07:00 121/63 03/13/23 11:24 86 25 H 98 60 03/13/23 07:16 92 H 28 H 95 60 03/13/23 06:58 38.2 C H 03/13/23 06:30 85 28 H 98 03/13/23 06:00 86 25 H 97 03/13/23 06:00 125/63 03/13/23 05:30 86 24 97 03/13/23 05:00 126/64 03/13/23 06:00 50 03/13/23 05:00 86 24 97 03/13/23 04:30 86 24 97 03/13/23 04:00 88 24 97 03/13/23 04:00 37.7 C H 131/71 03/13/23 03:30 88 24 97 03/13/23 03:00 88 24 97 03/13/23 03:00 133/65 03/13/23 02:30 36.8 C 87 24 96 03/13/23 02:31 88 24 96 50 Laboratory Results Abnormal lab results 03/12/23 03/12/23 03/12/23 Range/Units 17:52 17:54 20:04 WBC (4.8-10.8) K/ul RBC (4.70-6.10) M/uL Hgb (14.0-18.0) g/dl POC Hgb 12.9 L (14.0-18.0) g/dl Hct (42.0-52.0) % POC Hct 38 L (42-52) % MCV (80.0-100.0) fL MCHC (32.0-36.0) g/dL RDW Std Deviation (36.4-46.3) fL RDW Coeff of Leonela (11.5-14.5) % Plt Count (130-400) K/uL Neut # (Auto) (1.40-6.50) K/uL Lymph # (Auto) (1.20-3.40) K/uL Vilas # (Auto) (0.11-0.59) K/uL POC pH 7.26 L (7.35-7.45) POC pCO2 50 H (35-46) mmHg POC pO2 123 H (80-95) mmHg ABG pH (Temp Correct) 7.254 L (7.35-7.45) ABG pCO2 (Temp Corrct 51 H (35-46) mmHg POC ABG O2 Sat 98.0 H (90-95) % POC Sodium 134 L (135-144) mmol/L Sodium 133 L (136-145) mmol/L POC Potassium 6.0 H (3.3-5.0) mmol/L Potassium 6.2 H* (3.5-5.1) mmol/L Carbon Dioxide 19 L (21-32) mmol/L Anion Gap (3-11) BUN 67 H (6-23) mg/dl Creatinine 3.38 H D (0.6-1.4) mg/dl Glucose 219 H (70-99(Fasting)) mg/dl POC Glucose 214 H (70-99) mg/dl POC Glucose (other) (70-99) mg/dl Calcium 8.1 L (8.6-10.3) mg/dl Phosphorus 8.2 H (2.5-4.9) mg/dl Direct Bilirubin (0-0.2) mg/dl Total Protein (6.0-8.3) gm/dl Albumin (3.4-5.0) gm/dl 03/12/23 03/13/23 03/13/23 Range/Units 23:42 00:13 04:05 WBC 56.99 H* D (4.8-10.8) K/ul RBC 2.43 L (4.70-6.10) M/uL Hgb 7.6 L (14.0-18.0) g/dl POC Hgb (14.0-18.0) g/dl Hct 24.5 L (42.0-52.0) % POC Hct (42-52) % MCV 100.8 H (80.0-100.0) fL MCHC 31.0 L (32.0-36.0) g/dL RDW Std Deviation 86.4 H (36.4-46.3) fL RDW Coeff of Leonela 23.9 H (11.5-14.5) % Plt Count 21 L* (130-400) K/uL Neut # (Auto) 0.89 L* (1.40-6.50) K/uL Lymph # (Auto) 46.42 H (1.20-3.40) K/uL Vilas # (Auto) 10.78 H (0.11-0.59) K/uL POC pH (7.35-7.45) POC pCO2 (35-46) mmHg POC pO2 (80-95) mmHg ABG pH (Temp Correct) (7.35-7.45) ABG pCO2 (Temp Corrct (35-46) mmHg POC ABG O2 Sat (90-95) % POC Sodium (135-144) mmol/L Sodium 134 L (136-145) mmol/L POC Potassium (3.3-5.0) mmol/L Potassium 5.5 H (3.5-5.1) mmol/L Carbon Dioxide (21-32) mmol/L Anion Gap 14 H (3-11) BUN 67 H (6-23) mg/dl Creatinine 3.81 H D (0.6-1.4) mg/dl Glucose 233 H (70-99(Fasting)) mg/dl POC Glucose (70-99) mg/dl POC Glucose (other) 215 H (70-99) mg/dl Calcium 8.4 L (8.6-10.3) mg/dl Phosphorus (2.5-4.9) mg/dl Direct Bilirubin (0-0.2) mg/dl Total Protein (6.0-8.3) gm/dl Albumin (3.4-5.0) gm/dl 03/13/23 03/13/23 03/13/23 Range/Units 04:05 05:27 06:02 WBC (4.8-10.8) K/ul RBC (4.70-6.10) M/uL Hgb (14.0-18.0) g/dl POC Hgb 8.5 L (14.0-18.0) g/dl Hct (42.0-52.0) % POC Hct 25 L (42-52) % MCV (80.0-100.0) fL MCHC (32.0-36.0) g/dL RDW Std Deviation (36.4-46.3) fL RDW Coeff of Leonela (11.5-14.5) % Plt Count (130-400) K/uL Neut # (Auto) (1.40-6.50) K/uL Lymph # (Auto) (1.20-3.40) K/uL Vilas # (Auto) (0.11-0.59) K/uL POC pH 7.26 L (7.35-7.45) POC pCO2 52 H (35-46) mmHg POC pO2 (80-95) mmHg ABG pH (Temp Correct) 7.254 L (7.35-7.45) ABG pCO2 (Temp Corrct 54 H (35-46) mmHg POC ABG O2 Sat (90-95) % POC Sodium 131 L (135-144) mmol/L Sodium 133 L (136-145) mmol/L POC Potassium 5.5 H (3.3-5.0) mmol/L Potassium 5.5 H (3.5-5.1) mmol/L Carbon Dioxide (21-32) mmol/L Anion Gap 12 H (3-11) BUN 69 H (6-23) mg/dl Creatinine 3.88 H (0.6-1.4) mg/dl Glucose 275 H (70-99(Fasting)) mg/dl POC Glucose 300 H (70-99) mg/dl POC Glucose (other) (70-99) mg/dl Calcium 7.9 L (8.6-10.3) mg/dl Phosphorus 7.7 H (2.5-4.9) mg/dl Direct Bilirubin 0.4 H (0-0.2) mg/dl Total Protein 5.8 L (6.0-8.3) gm/dl Albumin 2.8 L (3.4-5.0) gm/dl 03/13/23 03/13/23 03/13/23 Range/Units 09:24 10:11 12:30 WBC (4.8-10.8) K/ul RBC (4.70-6.10) M/uL Hgb (14.0-18.0) g/dl POC Hgb (14.0-18.0) g/dl Hct (42.0-52.0) % POC Hct (42-52) % MCV (80.0-100.0) fL MCHC (32.0-36.0) g/dL RDW Std Deviation (36.4-46.3) fL RDW Coeff of Leonela (11.5-14.5) % Plt Count (130-400) K/uL Neut # (Auto) (1.40-6.50) K/uL Lymph # (Auto) (1.20-3.40) K/uL Vilas # (Auto) (0.11-0.59) K/uL POC pH (7.35-7.45) POC pCO2 (35-46) mmHg POC pO2 (80-95) mmHg ABG pH (Temp Correct) (7.35-7.45) ABG pCO2 (Temp Corrct (35-46) mmHg POC ABG O2 Sat (90-95) % POC Sodium (135-144) mmol/L Sodium (136-145) mmol/L POC Potassium (3.3-5.0) mmol/L Potassium (3.5-5.1) mmol/L Carbon Dioxide (21-32) mmol/L Anion Gap (3-11) BUN (6-23) mg/dl Creatinine (0.6-1.4) mg/dl Glucose (70-99(Fasting)) mg/dl POC Glucose (70-99) mg/dl POC Glucose (other) 226 H 211 H 192 H (70-99) mg/dl Calcium (8.6-10.3) mg/dl Phosphorus (2.5-4.9) mg/dl Direct Bilirubin (0-0.2) mg/dl Total Protein (6.0-8.3) gm/dl Albumin (3.4-5.0) gm/dl Diagnostic Findings Chest X-Ray 03/12/23 14:05 XR chest 1V portable HISTORY: 67 years-old Male central line placement right IJ status post placement of a right IJ central venous catheter COMPARISON: Chest CT of same day TECHNIQUE: AP view of the chest FINDINGS: Cardiac silhouette is enlarged. Endotracheal tube overlies the midline, approximately 7.4 cm superior to the gabino. A right IJ central venous catheter is noted in the expected location of the upper SVC. Left subclavian Azhqaq-c-Jcmy catheter is noted in the mid aspect of the SVC. Distal tip enteric tube projects inferiorly outside the [id number]. Distal abdominal lymphadenopathy with mixed interstitial and alveolar opacities noted. Dense airspace consolidation within the lung bases and left midlung are again seen. Small pleural effusions. Degenerative changes of the shoulders and spine. IMPRESSION: 1. Lines and tubes as above. 2. No pneumothorax. 3. Persistent mixed interstitial and alveolar opacities suggestive of pneumonia with small pleural effusions. 4. Hilar lymphadenopathy. ACT 112: Negative or not required by law. The above report was generated using voice recognition software. It may contain grammatical, syntax or spelling errors. Electronically signed by: Benedict Anderson M.D. 03/12/2023 3:05 PM Chest X-Ray 03/13/23 07:00 SINGLE VIEW CHEST CLINICAL HISTORY: Respiratory failure FINDINGS: An AP, portable, upright chest radiograph is compared to chest x-ray and chest CT dated 03/12/2023. An endotracheal tube, enteric tube, a right internal jugular central venous catheter, and a left subclavian central venous infusion port are unchanged in position. The heart is enlarged. The pulmonary vasculature is noncongested. Multifocal airspace consolidation is again seen throughout both lungs. This is similar to previous. No pneumothorax is seen. The skeletal structures are osteopenic. The bony thorax is grossly intact. IMPRESSION: 1. Multifocal airspace consolidation has not significantly changed from yesterday. 2. Stable lines and tubes. 3. Cardiomegaly without radiographic evidence of congestive failure. ACT 112: Negative or not required by law. Electronically signed by: Neymar Cohn M.D. 03/13/2023 7:22 AM PG Care Time/CCT Total # of Minutes Spent Total Time Spent with Patient: Total time spent is greater than 50% in coordination of care (as documented) at patient's floor/unit and/or counseling patient: Coding Level of Care Code 52047 SUB INP/OBS CARE 2/35MIN Diagnoses Septic shock A41.9; R65.21 Pneumonia J18.9 Neutropenic fever D70.9; R50.81 Acute hypoxic respiratory failure J96.01 ANJUM (acute kidney injury) N17.9 COVID-19 U07.1 CLL (chronic lymphocytic leukemia) C91.90 Enterovirus infection B34.1 Acute diastolic CHF (congestive heart failure) I50.31 T2DM (type 2 diabetes mellitus) E11.9 Elevated troponin R79.89 Hypothyroidism E03.9 Sepsis A41.9 Immunoglobulin deficiency, acquired D80.9
[2023-03-13 14:58] LABS: iSTAT Art Bld Gas pCO2 Correct 47 mmHg (35-46); iSTAT Art Bld Gas pH Corrected 7.319 (7.35-7.45); iSTAT Arterial Blood Gas HCO3 24 meg/L (19-24); iSTAT Arterial Blood Gas pCO2 46 mmHg (35-46); iSTAT Arterial Blood Gas pH 7.33 (7.35-7.45); iSTAT Arterial Blood Gas pO2 96 mmHg (80-95); iSTAT Arterial Blood Gas pO2 C 98; iSTAT Carbon Dioxide 25 mmol/L (24-31); iSTAT FiO2 50 %; iSTAT Hematocrit 25 % (42-52); iSTAT Hemoglobin 8.5 g/dl (14.0-18.0); iSTAT Potassium 4.7 mmol/L (3.3-5.0); iSTAT Site Art Line; iSTAT Sodium 133 mmol/L (135-144)
[2023-03-13 15:30] LABS: Calcium 8.1 mg/dl (8.6-10.3); Creatinine Clr Calc Pharmacy 21.3 ml/min; Est GFR (African American) 15.8 ml/min; Est GFR (Non-African American) 13.6 ml/min; Potassium 4.8 mmol/L (3.5-5.1)
--- NOTE | 2023-03-13 15:55 | Pharmacy Report ---
Pharmacy Glycemic Short Note 2 - Date of Service March 13, 2023 - Glycemic Short BSG Results (Last 24 hours): 03/12/23 03/12/23 03/12/23 17:52 17:54 23:42 Glucose 219 H POC Glucose 214 H POC Glucose (other) 215 H 03/13/23 03/13/23 03/13/23 00:13 04:05 06:02 Glucose 233 H 275 H POC Glucose 300 H POC Glucose (other) 03/13/23 03/13/23 03/13/23 09:24 10:11 12:30 Glucose POC Glucose POC Glucose (other) 226 H 211 H 192 H 03/13/23 03/13/23 03/13/23 13:33 14:45 14:50 Glucose 159 H POC Glucose POC Glucose (other) 174 H 156 H OUTPATIENT ANTIDIABETIC REGIMEN: * glimepiride 4mg qam * A1c: 7.5% ASSESSMENT: * Patient with a history of CLL presenting with septic shock and is immunocompromised. Patient on multiple antiinfective and is requiring vasopressors. PLAN FOR INPATIENT GLYCEMIC CONTROL: * Hold outpatient oral diabetes medications * Insulin infusion initiated for hyperglycemia in the critical care setting. Discussed at multidisciplinary rounds and will plan to continue this for the time being given acute status. Patient receiving multiple infusions, some in dextrose containing fluids. Goal range is 110-180mg/dL. Although the IV insulin calculator is guiding most titration, and empiric reduction in rate was made this afternoon after assessing trend in BSGs.
--- NOTE | 2023-03-13 15:58 | Pharmacy Report ---
Pharmacy PK ABX Note - Date of Service March 13, 2023 - Assessment and Plan Laboratory Tests 03/10/23 03/11/23 03/12/23 03:53 12:25 06:51 Creatinine 1.82 H 2.11 H 2.72 H D Assessment 03/13: Patient's scr continue to rise but was still making some urine. Given this and after assessment of today's random level of 16.3, will plan to redose one today and recheck a random level in the morning to further guide supplemental doses. Patient also started in abx lock therapy today. 03/12 67 year old M receiving meropenem, voriconazole, and azithromycin for treatment of pneumonia. Now adding Vancomycin back (had received 03/07-03/08), for 1/ blood cultures positive for Staph Epi and persistent fevers with port in place. Repeat blood cultures today. History of CLL, febrile/neutropenic. MRSA nasal (-). CKD. Will give loading dose and check random level in morning, SCr elevated significantly today. Plan Vancomycin * Redose: 1000 mg IV x 1 @1200 today * Random level with AM labs Pharmacy will continue to follow and will adjust dose/frequency as necessary. Thank you.
[2023-03-13] MEDS: AZITHROMYCIN 250 MG in DEXTROSE 5% 250 ML IV SCH (16:56)
[2023-03-13 18:27] LABS: Fungitell (1-3)-B-D-Glucan <31 pg/mL
[2023-03-14] MEDS: NOREPINEPHRINE/D5W 4 MG/250 ML PLCT IV SCH ×5 (01:47→22:49)
[2023-03-14] MEDS: VORICONAZOLE 350 MG in 0.9 % SODIUM CHLORIDE 65 ML IV SCH ×2 (01:48→14:19)
[2023-03-14] MEDS: propofoL 1,000 MG/100 ML VIAL IV SCH ×5 (01:53→20:00)
[2023-03-14] MEDS: MEROPENEM 500 MG in SYRINGE 0 ML IV SCH ×2 (03:26→14:19)
[2023-03-14] MEDS: VASOPRESSIN 20 UNITS in 0.9 % SODIUM CHLORIDE 100 ML IV SCH ×2 (04:33→14:20)
[2023-03-14 05:38] LABS: Albumin Level 2.6 gm/dl (3.4-5.0); BUN Creatinine Ratio 16.3 (10-20); Bilirubin Direct 0.4 mg/dl (0-0.2); Bilirubin,Total 0.6 mg/dl (0.2-1.0); Calcium 7.8 mg/dl (8.6-10.3); Creatinine Clr Calc Pharmacy 20.2 ml/min; Est GFR (African American) 14.8 ml/min; Est GFR (Non-African American) 12.7 ml/min; Magnesium 2.2 mg/dl (1.7-2.4); Phosphorus 7.2 mg/dl (2.5-4.9); Potassium 4.4 mmol/L (3.5-5.1); Total Protein 5.6 gm/dl (6.0-8.3)
[2023-03-14 05:57] LABS: Hematocrit (blood only) 22.9 % (42.0-52.0); Hemoglobin 7.3 g/dl (14.0-18.0); Mean Corpuscular Hemoglobin 30.8 pg (25.0-34.0); Mean Corpuscular Hgb Conc 31.9 g/dL (32.0-36.0); Mean Corpuscular Volume 96.6 fL (80.0-100.0); Platelet Count 20 K/uL (130-400); RDW Coefficient of Variation 23.9 % (11.5-14.5); RDW Standard Deviation 82.6 fL (36.4-46.3); Red Blood Count 2.37 M/uL (4.70-6.10); White Blood Count 62.63 K/ul (4.8-10.8)
--- NOTE | 2023-03-14 07:31 | Hospitalist Progress Note ---
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 No active bleeding He is in multiorgan failure On multiple antibiotics, antifungals per ID recommendations On multiple pressors Manager Export, camera repairer, oncologist, infectious disease on board Patient is getting sicker despite all efforts Prognosis poor since he is immunocompromised (2) Pneumonia: Plan: 67yo male with CLL, neutropenia (ANC 0.7), thrombocytopenia and anemia presenting with fever, cough, SOB. patient was initially on BIPAP for increased work of breathing. BioFire panel with +Covid-19 as well as Enterovirus. Possible bacterial component as well given elevation of Procalcitonin Immunocompromised host with neutropenic fever, neupogen given on broad-spectrum antibiotics and antifungals Infectious disease on board. On meropenem. Voriconazole started by infectious disease. Monitor daily EKG for QTc prolongation On vancomycin. Blood culture 1 out of 4 bottles growing staph. Likely contaminant. Repeat blood cultures ordered by ID. - follow up on fungal culture, Legionella, BD glucan CT chest 03/12 shows extensive multifocal consolidation. (3) Acute hypoxic respiratory failure: Plan: Intubated 03/12 Bronchoscopy done 03/12 CT chest showed multifocal pneumonia, worse in the left Manager Export managing vent (4) ANJUM (acute kidney injury): Plan: on CKD stage III Per camera repairer, declined transfer to a tertiary care center for continuous dialysis At risk for tumor lysis syndrome rasburicase may be offered for uric acid greater than 12. (5) COVID-19: Plan: Patient diagnosed with Covid on 02/20/23. He was treated with Paxlovid. -Maintain isolation precautions for now - patient immunocompromised with underlying malignancy - prolonged isolation (6) Acute diastolic CHF (congestive heart failure): Plan: patient appeared to be volume overloaded and responded to A few doses of Lasix during this hospital stay -Patient with minimal elevation of troponin. 28.5 --> 31.3. No acute ischemic changes on EKG.suspect demand ischemia - echo showed no wall motion abnormalities or depressed EF Currently needing pressor support to maintain blood pressure (7) T2DM (type 2 diabetes mellitus): Plan: -ISS as needed (8) Hypothyroidism: Plan: Chronic hold Synthroid for now Plan Ppx - SCDs (Lovenox discontinued due to thrombocytopenia and anemia) Admission and Anticipated Discharge Date Admission Date: March 07, 2023 Subjective Patient intubated and sedated. Family was at the bedside. Discussions of supportive care versus end-of-life versus possible terminal wean were all brought out [place]. At this time his wishes to continue to support him for an additional period of time to see if his renal function improves. Physical Exam Physical Exam: He is sedate with fentanyl and propofol Coarse breath sounds are equal bilaterally from ventilation Peripheral edema is present Results & Data Results & Data Vital Signs (Past 12 Hours) Vital Signs Temp Pulse Resp BP Pulse Ox FiO2 03/14/23 05:00 69 28 H 131/64 98 03/14/23 05:21 69 03/14/23 04:00 70 28 H 128/63 97 03/14/23 03:00 68 28 H 133/65 99 03/14/23 02:00 68 28 H 136/64 99 03/14/23 01:00 70 28 H 132/66 99 03/14/23 00:00 68 28 H 131/64 98 03/13/23 23:00 69 28 H 129/62 99 03/13/23 22:00 70 28 H 126/66 98 03/14/23 04:14 98.8 F 03/14/23 04:00 50 03/14/23 04:03 69 28 H 97 40 03/13/23 21:00 71 28 H 125/63 98 03/13/23 20:00 71 28 H 123/60 97 03/13/23 20:41 50 03/13/23 20:20 99.1 F 03/13/23 20:16 70 28 H 99 40 Laboratory Results Reviewed CBC reviewed chemistry spoke to at bedside PG Care Time/CCT Total # of Minutes Spent Total Time Spent with Patient: Total time spent is greater than 50% in coordination of care (as documented) at patient's floor/unit and/or counseling patient: Coding Level of Care Code 77294 SUB INP/OBS CARE 3/50MIN Diagnoses Septic shock A41.9; R65.21 Pneumonia J18.9 Acute hypoxic respiratory failure J96.01 ANJUM (acute kidney injury) N17.9 COVID-19 U07.1 Acute diastolic CHF (congestive heart failure) I50.31 T2DM (type 2 diabetes mellitus) E11.9 Hypothyroidism E03.9
[2023-03-14] MEDS: INSULIN ASPART PER UNIT CHARGE SC SCH ×4 (08:08→21:04)
[2023-03-14] MEDS ORDERED: SODIUM CHLORIDE 0.9% 250 ML IV PRN (08:13)
--- NOTE | 2023-03-14 08:16 | Critical Care Progress Note ---
Date of Service March 14, 2023 Assessment & Plan (1) Immunoglobulin deficiency, acquired: Plan: Reason Critically Ill: 67-year-old male with acute hypoxic respiratory failure in the setting of febrile neutropenia secondary to CLL PLAN: Neuro: Encephalopathy: Multifactorial Continue sedation and analgesia to facilitate mechanical ventilation Anxiety - discontinued Ativan secondary to sedation to facilitate mechanical ventilation Resp: Acute hypoxic respiratory failure: p/f: 155 -Intubated 03/12 -CT scan reviewed which revealed dense left lower lobe pneumonia as well as multilobar pneumonia -Underwent bronchoscopy and specimen obtained 03/12 -Meropenem, azithromycin, vancomycin CV: Echo reviewed. Hypotension: Septic shock -On norepinephrine and vasopressin Fluids/Renal: Acute kidney failure on chronic kidney disease: Worsening -Nephrology notes reviewed - Present blood dyscrasias would make renal replacement therapy difficult - Received 2 doses of Lokelma and receiving a bicarbonate infusion -Potassium within normal limits, creatinine elevated to 4.48 Hyponatremia and hypochloremia Mild hypocalcemia ID: Reviewed infectious disease notes -Meropenem 1 g IV every 8 hours -Voriconazole for CLL and risk of invasive aspergillosis -Azithromycin -Vancomycin -Single blood culture positive for coag negative staph questionable contaminant repeat have been ordered and obtained -Antibiotic lock: Vancomycin to port COVID-19: Infection control to discuss with infectious disease regarding removal of airborne precautions, - to continue at this point Enterovirus infection Pelvic hematoma -Interval improvement on noncontrast CT scan GI/Nutrition: N.p.o. Hypoalbuminemia Protonix infusion for prolonged mechanical ventilation Heme: CLL -Transfusion triggers as per oncology hemoglobin less than 7.5 irradiated platelets for less than 10,000 -1 unit irradiated blood product secondary to hemoglobin being 7.3 -GCSF per oncology: Peripheral smear reviewed DVT prophylaxis: Chemoprophylaxis contraindicated in the setting of significant thrombocytopenia Endocrine: ICU hyperglycemia protocol Vascular access: Right internal jugular triple-lumen catheter placed 03/12 Code Status: Limited code: No chest compressions in event of cardiac arrest Disposition: ICU Discussed current status and prognosis with . Discussed possibility of bringing children to see the patient/father. Patient is open to exploring hospice. We will continue current level of care at this time. (2) Acute hypoxic respiratory failure: (3) Neutropenic fever: (4) Enterovirus infection: Admission and Anticipated Discharge Date Admission Date: March 07, 2023 Supervising Physician Co-Signing Physician Notes I have personally spent 50 minutes of critical care time in the direct management of this patient. This is a life/limb threatening event. This includes time spent evaluating patient, direct bedside care, chart review, placing orders, interpretation of diagnostic studies, discussion with consultants, patient, and/or family members regarding treatment decisions, as well as other required patient management activities. This time is exclusive of all separately billable procedures, and teaching time and separate from and in addition to any other critical care service time. Subjective No significant overnight events Review of Systems Review of Systems: Unobtainable due to endotracheal tube Physical Exam Physical Exam: General: Sedated. nontoxic. Skin: Warm, dry, Head: Atraumatic Ears, nose, mouth and throat: airway obscured by endotracheal tube Cardiovascular: Normal peripheral perfusion Respiratory: Ventilator settings reviewed Gastrointestinal: Non distended Musculoskeletal: No deformity Results & Data Results & Data Vital Signs (Past 12 Hours) Vital Signs Temp Pulse Resp BP Pulse Ox FiO2 03/14/23 05:00 69 28 H 131/64 98 03/14/23 05:21 69 03/14/23 04:00 70 28 H 128/63 97 03/14/23 03:00 68 28 H 133/65 99 03/14/23 02:00 68 28 H 136/64 99 03/14/23 01:00 70 28 H 132/66 99 03/14/23 00:00 68 28 H 131/64 98 03/13/23 23:00 69 28 H 129/62 99 03/13/23 22:00 70 28 H 126/66 98 03/14/23 04:14 37.1 C 03/14/23 04:00 50 03/14/23 04:03 69 28 H 97 40 03/13/23 21:00 71 28 H 125/63 98 03/13/23 20:41 50 03/13/23 20:20 37.3 C 03/13/23 20:16 70 28 H 99 40 Critical Care Results & Data Vital Signs (Past 12 Hours) Vital Signs Temp Pulse Resp BP Pulse Ox FiO2 03/14/23 05:00 69 28 H 131/64 98 03/14/23 05:21 69 03/14/23 04:00 70 28 H 128/63 97 03/14/23 03:00 68 28 H 133/65 99 03/14/23 02:00 68 28 H 136/64 99 03/14/23 01:00 70 28 H 132/66 99 03/14/23 00:00 68 28 H 131/64 98 03/13/23 23:00 69 28 H 129/62 99 03/13/23 22:00 70 28 H 126/66 98 03/14/23 04:14 37.1 C 03/14/23 04:00 50 03/14/23 04:03 69 28 H 97 40 03/13/23 21:00 71 28 H 125/63 98 03/13/23 20:41 50 03/13/23 20:20 37.3 C 03/13/23 20:16 70 28 H 99 40 Lab & Micro Results (Past 24 Hours) RBC 2.37 M/uL (4.70-6.10) L 03/14/23 WBC 62.63 K/ul (4.8-10.8) H* 03/14/23 Hgb 7.3 g/dl (14.0-18.0) L 03/14/23 Hct 22.9 % (42.0-52.0) L 03/14/23 MCV 96.6 fL (80.0-100.0) 03/14/23 MCH 30.8 pg (25.0-34.0) 03/14/23 MCHC 31.9 g/dL (32.0-36.0) L 03/14/23 RDW Standard Deviation 82.6 fL (36.4-46.3) H 03/14/23 RDW Coefficient of Variation 23.9 % (11.5-14.5) H 03/14/23 Plt Count 20 K/uL (130-400) L* 03/14/23 Na 131 mmol/L (136-145) L 03/14/23 K 4.4 mmol/L (3.5-5.1) 03/14/23 Cl 95 mmol/L (98-107) L 03/14/23 CO2 25 mmol/L (21-32) 03/14/23 Anion Gap 11 (3-11) 03/14/23 BUN 73 mg/dl (6-23) H 03/14/23 Creatinine 4.48 mg/dl (0.6-1.4) H 03/14/23 Estimated GFR ( Amer) 14.8 ml/min 03/14/23 Estimated GFR (Non-Af Amer) 12.7 ml/min 03/14/23 BUN/Creatinine Ratio 16.3 (10-20) 03/14/23 Glu 138 mg/dl (70-99(Fasting)) H 03/14/23 Ca 7.8 mg/dl (8.6-10.3) L 03/14/23 Phosphorus Level 7.2 mg/dl (2.5-4.9) H 03/14/23 Total Bilirubin 0.6 mg/dl (0.2-1.0) 03/14/23 Direct Bilirubin 0.4 mg/dl (0-0.2) H 03/14/23 AST 20 U/L (13-39) 03/14/23 ALT 10 U/L (7-52) 03/14/23 Alkaline Phosphatase 69 U/L (34-104) 03/14/23 TP 5.6 gm/dl (6.0-8.3) L 03/14/23 Albumin 2.6 gm/dl (3.4-5.0) L 03/14/23 Mg 2.2 mg/dl (1.7-2.4) 03/14/23 04:41 Calcium Level 7.8 mg/dl (8.6-10.3) L 03/14/23 04:41 Alphonso Test NA 03/14/23 08:22 Microbiology 03/12/23 19:13 Aerobic Blood Culture - Preliminary Blood Coag neg staph not lugdunensis Anaerobic Blood Culture - Preliminary No growth in Anaerobic bottle after 24 hours. 03/12/23 Unknown Acid Fast Bacilli Smear - Final Bronch Wash,Left Lower Lobe 03/12/23 06:52 Aerobic Blood Culture - Preliminary Blood No growth in Aerobic bottle after 48 hours. Anaerobic Blood Culture - Preliminary No growth in Anaerobic bottle after 48 hours. 03/12/23 06:51 Aerobic Blood Culture - Preliminary Blood No growth in Aerobic bottle after 48 hours. Anaerobic Blood Culture - Preliminary No growth in Anaerobic bottle after 48 hours. 03/12/23 19:13 Aerobic Blood Culture - Preliminary Blood No growth in Aerobic bottle after 24 hours. Anaerobic Blood Culture - Preliminary No growth in Anaerobic bottle after 24 hours. 03/12/23 Unknown Gram Stain - Final Bronch Wash,Left Lower Lobe Bronchial Culture - Preliminary No growth 03/12/23 Unknown Fungal Smear - Final Bronch Wash,Left Lower Lobe 03/07/23 17:23 Aerobic Blood Culture - Final Blood No growth in Aerobic bottle after 5 days. Anaerobic Blood Culture - Final No growth in Anaerobic bottle after 5 days. I & O Totals 24 Hours 03/13/23 03/14/23 03/15/23 06:59 06:59 06:59 Intake Total 3379.113 / 3379.113 5420.670 / 5420.670 289.692 / 289.692 Output Total 250 / 250 370 / 370 Balance 3129.113 / 3129.113 5050.670 / 5050.670 289.692 / 289.692 Cumulative 03/07/23 16:41 thru 03/14/23 07:08 Intake Total 65514.475 Output Total 62783 Balance -281.525 RT Ventilator Mngmt (Last Documented) Ventilator Ordered Settings Ventilator Support Mode Assist Control 03/14/23 04:03 Respiratory Rate 28 03/14/23 05:00 Ventilator Tidal Volume 450 03/14/23 04:03 Setting Minute Ventilation 12.2 03/14/23 04:03 Positive End Expiratory 15 03/14/23 04:03 Pressure Fraction of Inspired Oxygen 40 03/14/23 04:03 Machine Comment settings changed per [facility] 03/12/23 20:26 Ventilator - PT Measurements Respiratory Rate 28 Exhaled Tidal Volume 449 Minute Ventilation 12.2 Peak Inspiratory Airway 31 Pressure Plateau Pressure 26 Respiratory Cycle Inspiratory: 1:1.1 Expiratory Ratio Inspiratory Phase Time 1 End-Tidal CO2 34 Static Lung Compliance 40.82 Dynamic Lung Compliance 28.06 Normal Static Lung Compliance 47.00 Patient Measurements Comment decreased fio2 to 50% Coding Level of Care Code 90254 CRITICAL CARE 1ST 30-74M Diagnoses Immunoglobulin deficiency, acquired D80.9 Acute hypoxic respiratory failure J96.01 Neutropenic fever D70.9; R50.81 Enterovirus infection B34.1
[2023-03-14 08:38] LABS: iSTAT Art Bld Gas pCO2 Correct 41 mmHg (35-46); iSTAT Art Bld Gas pH Corrected 7.398 (7.35-7.45); iSTAT Arterial Blood Gas HCO3 25 meg/L (19-24); iSTAT Arterial Blood Gas pCO2 41 mmHg (35-46); iSTAT Arterial Blood Gas pO2 62 mmHg (80-95); iSTAT Arterial Blood Gas pO2 C 63; iSTAT Carbon Dioxide 27 mmol/L (24-31); iSTAT Hematocrit 22 % (42-52); iSTAT Hemoglobin 7.5 g/dl (14.0-18.0); iSTAT Potassium 4.3 mmol/L (3.3-5.0); iSTAT Site Art Line; iSTAT Sodium 129 mmol/L (135-144)
[2023-03-14] MEDS: SODIUM BICARBONATE 8.4% 150 MEQ in WATER, STERILE 1,000 ML IV SCH ×2 (08:40→20:58)
--- NOTE | 2023-03-14 10:09 | Nephrology Progress Note ---
Date of Service March 14, 2023 Assessment & Plan (1) Acute hyperkalemia: Plan: Resolved with medical management. Insulin gtt expected to be weaned off as serum glucose improves. Remains on HCO3 infusion. Continue to maintain positive fluid balance to encourage UOP. Vasopressor support to maintain renal perfusion. Nutrition to be addressed by the ICU team today. (2) ANJUM (acute kidney injury): Plan: Non-oliguric but overall urine output low. Remains in notably positive fluid balance due to third spacing fluid. WBC notably elevated. Increased TBW but intravascular volume depletion. No emergent indication for dialysis. I discussed with Alphonso's that TENTERING MACHINE OFF BEARER may be considered if we felt UF dialysis would expedite extubation. Unfortunately, Alphonso's current condition and vasopressor requirement suggest he would likely not tolerate IHD well. We will not transfer for CRRT based on family's wishes. I would not expect any form of TENTERING MACHINE OFF BEARER to notably improve current situation. Electrolytes are reasonably controlled and Alphonso requires IVF to maintain intravascular volume. Document strict I/O's. Monitor renal profile q 4-6 hours. Check vanco level prior to each dose. Dosing per pharmacy consultation. Medications dosed acceptably. . (3) At high risk of tumor lysis syndrome: Plan: IVF to encourage urine output. Prognosis is unfortunately very poor. Check uric acid level at least daily. Thankfully no Gonzales's transformation noted on peripheral smear. Admission and Anticipated Discharge Date Admission Date: March 07, 2023 Subjective No acute events overnight. Remains sedated on mechanical ventilation. FIO2 40%. Continues to require vasopressor support with levo and vaso. No events noted on telemetry. Urine output ~225 ml in past 12 hours. NaHCO3 gtt infusing. Alphonso was seen this morning with his at the bedside. Review of Systems Review of Systems: All systems reviewed & are unremarkable except as noted in HPI & below Physical Exam Constitutional: well developed, + altered mental status (sedated and unresponsive) and + mechanically ventilated Respiratory: Auscultation: lungs clear to auscultation bilaterally Cardiovascular: Rate/Rhythm: regular rate Heart Sounds: normal S1 and normal S2 Extremities: normal capillary refill and + edema (increasing generalize) Musculoskeletal: Extremities: no cyanosis and no clubbing Skin: normal turgor; no jaundice Results & Data Vital Signs (Past 12 Hours) Vital Signs Temp Pulse Resp BP Pulse Ox FiO2 03/14/23 08:00 69 28 H 98 50 03/14/23 05:00 69 28 H 131/64 98 03/14/23 05:21 69 03/14/23 04:00 70 28 H 128/63 97 03/14/23 03:00 68 28 H 133/65 99 03/14/23 02:00 68 28 H 136/64 99 03/14/23 01:00 70 28 H 132/66 99 03/14/23 00:00 68 28 H 131/64 98 03/13/23 23:00 69 28 H 129/62 99 03/13/23 22:00 70 28 H 126/66 98 03/14/23 04:14 37.1 C 03/14/23 04:00 50 03/14/23 04:03 69 28 H 97 40 Laboratory Results Laboratory Results - last 24 hr 03/09/23 03/13/23 03/13/23 05:36 04:05 09:24 WBC RBC Hgb POC Hgb Hct POC Hct MCV MCH MCHC RDW Std Deviation RDW Coeff of Leonela Plt Count Peripher [facility] Path Cons Sample Site POC pH POC pCO2 POC pO2 POC HCO3 POC Total CO2 POC Base Excess ABG pH (Temp Correct) ABG pCO2 (Temp Corrct POC ABG pO2 at Pt Temp POC ABG O2 Sat Alphonso Test O2 Delivery Device POC O2 Rate POC FiO2 Tidal Volume PEEP POC Sodium Sodium POC Potassium Potassium Chloride Carbon Dioxide Anion Gap BUN Creatinine Est Cr Clr Drug Dosing Est GFR ( Amer) Est GFR (Non-Af Amer) BUN/Creatinine Ratio Glucose POC Glucose (other) 226 H Lactate Calcium Phosphorus Magnesium Total Bilirubin Direct Bilirubin AST ALT Alkaline Phosphatase Total Protein Albumin Random Vancomycin Beta-(1,3)-D-Glucan <31 B-(1,3)-D-Glucan Intrp NEGATIVE Blood Type Antibody Screen Crossmatch 03/13/23 03/13/23 03/13/23 10:11 12:30 13:33 WBC RBC Hgb POC Hgb Hct POC Hct MCV MCH MCHC RDW Std Deviation RDW Coeff of Leonela Plt Count Peripher [facility] Path Cons Sample Site POC pH POC pCO2 POC pO2 POC HCO3 POC Total CO2 POC Base Excess ABG pH (Temp Correct) ABG pCO2 (Temp Corrct POC ABG pO2 at Pt Temp POC ABG O2 Sat Alphnoso Test O2 Delivery Device POC O2 Rate POC FiO2 Tidal Volume PEEP POC Sodium Sodium POC Potassium Potassium Chloride Carbon Dioxide Anion Gap BUN Creatinine Est Cr Clr Drug Dosing Est GFR ( Amer) Est GFR (Non-Af Amer) BUN/Creatinine Ratio Glucose POC Glucose (other) 211 H 192 H 174 H Lactate Calcium Phosphorus Magnesium Total Bilirubin Direct Bilirubin AST ALT Alkaline Phosphatase Total Protein Albumin Random Vancomycin Beta-(1,3)-D-Glucan B-(1,3)-D-Glucan Intrp Blood Type Antibody Screen Crossmatch 03/13/23 03/13/23 03/13/23 14:44 14:45 14:45 WBC RBC Hgb POC Hgb 8.5 L Hct POC Hct 25 L MCV MCH MCHC RDW Std Deviation RDW Coeff of Leonela Plt Count Peripher [facility] Path Cons Sample Site Art Line POC pH 7.33 L POC pCO2 46 POC pO2 96 H POC HCO3 24 POC Total CO2 25 POC Base Excess -2.0 ABG pH (Temp Correct) 7.319 L ABG pCO2 (Temp Corrct 47 H POC ABG pO2 at Pt Temp 98 POC ABG O2 Sat 97.0 H Alphonso Test NA O2 Delivery Device Ventilator POC O2 Rate 18 POC FiO2 50 Tidal Volume 450 PEEP 15 POC Sodium 133 L Sodium 134 L POC Potassium 4.7 Potassium 4.8 Chloride 99 Carbon Dioxide 23 Anion Gap 12 H BUN 72 H Creatinine 4.24 H D Est Cr Clr Drug Dosing 21.3 Est GFR ( Amer) 15.8 Est GFR (Non-Af Amer) 13.6 BUN/Creatinine Ratio 17.0 Glucose 159 H POC Glucose (other) Lactate 0.8 Calcium 8.1 L Phosphorus Magnesium Total Bilirubin Direct Bilirubin AST ALT Alkaline Phosphatase Total Protein Albumin Random Vancomycin Beta-(1,3)-D-Glucan B-(1,3)-D-Glucan Intrp Blood Type Antibody Screen Crossmatch 03/13/23 03/13/23 03/13/23 14:50 17:09 19:51 WBC RBC Hgb POC Hgb Hct POC Hct MCV MCH MCHC RDW Std Deviation RDW Coeff of Leonela Plt Count Peripher [facility] Cons Sample Site POC pH POC pCO2 POC pO2 POC HCO3 POC Total CO2 POC Base Excess ABG pH (Temp Correct) ABG pCO2 (Temp Corrct POC ABG pO2 at Pt Temp POC ABG O2 Sat Alphonso Test O2 Delivery Device POC O2 Rate POC FiO2 Tidal Volume PEEP POC Sodium Sodium POC Potassium Potassium Chloride Carbon Dioxide Anion Gap BUN Creatinine Est Cr Clr Drug Dosing Est GFR ( Amer) Est GFR (Non-Af Amer) BUN/Creatinine Ratio Glucose POC Glucose (other) 156 H 140 H 162 H Lactate Calcium Phosphorus Magnesium Total Bilirubin Direct Bilirubin AST ALT Alkaline Phosphatase Total Protein Albumin Random Vancomycin Beta-(1,3)-D-Glucan B-(1,3)-D-Glucan Intrp Blood Type Antibody Screen Crossmatch 03/13/23 03/14/23 03/14/23 23:39 01:45 03:36 WBC RBC Hgb POC Hgb Hct POC Hct MCV MCH MCHC RDW Std Deviation RDW Coeff of Leonela Plt Count Peripher [facility] Path Cons Sample Site POC pH POC pCO2 POC pO2 POC HCO3 POC Total CO2 POC Base Excess ABG pH (Temp Correct) ABG pCO2 (Temp Corrct POC ABG pO2 at Pt Temp POC ABG O2 Sat Alphonso Test O2 Delivery Device POC O2 Rate POC FiO2 Tidal Volume PEEP POC Sodium Sodium POC Potassium Potassium Chloride Carbon Dioxide Anion Gap BUN Creatinine Est Cr Clr Drug Dosing Est GFR ( Amer) Est GFR (Non-Af Amer) BUN/Creatinine Ratio Glucose POC Glucose (other) 151 H 140 H 133 H Lactate Calcium Phosphorus Magnesium Total Bilirubin Direct Bilirubin AST ALT Alkaline Phosphatase Total Protein Albumin Random Vancomycin Beta-(1,3)-D-Glucan B-(1,3)-D-Glucan Intrp Blood Type Antibody Screen Crossmatch 03/14/23 03/14/23 03/14/23 04:41 04:41 04:41 WBC 62.63 H* RBC 2.37 L Hgb 7.3 L POC Hgb Hct 22.9 L POC Hct MCV 96.6 MCH 30.8 MCHC 31.9 L RDW Std Deviation 82.6 H RDW Coeff of Leonela 23.9 H Plt Count 20 L* Peripher Smr Path Cons Sample Site POC pH POC pCO2 POC pO2 POC HCO3 POC Total CO2 POC Base Excess ABG pH (Temp Correct) ABG pCO2 (Temp Corrct POC ABG pO2 at Pt Temp POC ABG O2 Sat Alphonso Test O2 Delivery Device POC O2 Rate POC FiO2 Tidal Volume PEEP POC Sodium Sodium 131 L POC Potassium Potassium 4.4 Chloride 95 L Carbon Dioxide 25 Anion Gap 11 BUN 73 H Creatinine 4.48 H Est Cr Clr Drug Dosing 20.2 Est GFR ( Amer) 14.8 Est GFR (Non-Af Amer) 12.7 BUN/Creatinine Ratio 16.3 Glucose 138 H POC Glucose (other) Lactate Calcium 7.8 L Phosphorus 7.2 H Magnesium 2.2 Total Bilirubin 0.6 Direct Bilirubin 0.4 H AST 20 ALT 10 Alkaline Phosphatase 69 Total Protein 5.6 L Albumin 2.6 L Random Vancomycin 21.2 H Beta-(1,3)-D-Glucan B-(1,3)-D-Glucan Intrp Blood Type Antibody Screen Crossmatch 03/14/23 03/14/23 03/14/23 05:59 08:22 08:22 WBC RBC Hgb POC Hgb 7.5 L Hct POC Hct 22 L MCV MCH MCHC RDW Std Deviation RDW Coeff of Leonela Plt Count Peripher [facility] Cons Sample Site Art Line POC pH 7.40 POC pCO2 41 POC pO2 62 L POC HCO3 25 H POC Total CO2 27 POC Base Excess 1.0 ABG pH (Temp Correct) 7.398 ABG pCO2 (Temp Corrct 41 POC ABG pO2 at Pt Temp 63 POC ABG O2 Sat 92.0 Alphonso Test NA O2 Delivery Device Ventilator POC O2 Rate POC FiO2 Tidal Volume PEEP POC Sodium 129 L Sodium POC Potassium 4.3 Potassium Chloride Carbon Dioxide Anion Gap BUN Creatinine Est Cr Clr Drug Dosing Est GFR ( Amer) Est GFR (Non-Af Amer) BUN/Creatinine Ratio Glucose POC Glucose (other) 128 H 121 H Lactate Calcium Phosphorus Magnesium Total Bilirubin Direct Bilirubin AST ALT Alkaline Phosphatase Total Protein Albumin Random Vancomycin Beta-(1,3)-D-Glucan B-(1,3)-D-Glucan Intrp Blood Type Antibody Screen Crossmatch 03/14/23 03/14/23 08:58 08:58 WBC RBC Hgb POC Hgb Hct POC Hct MCV MCH MCHC RDW Std Deviation RDW Coeff of Leonela Plt Count Peripher [facility] Sample Site POC pH POC pCO2 POC pO2 POC HCO3 POC Total CO2 POC Base Excess ABG pH (Temp Correct) ABG pCO2 (Temp Corrct POC ABG pO2 at Pt Temp POC ABG O2 Sat Alphonso Test O2 Delivery Device POC O2 Rate POC FiO2 Tidal Volume PEEP POC Sodium Sodium POC Potassium Potassium Chloride Carbon Dioxide Anion Gap BUN Creatinine Est Cr Clr Drug Dosing Est GFR ( Amer) Est GFR (Non-Af Amer) BUN/Creatinine Ratio Glucose POC Glucose (other) Lactate 0.6 Calcium Phosphorus Magnesium Total Bilirubin Direct Bilirubin AST ALT Alkaline Phosphatase Total Protein Albumin Random Vancomycin Beta-(1,3)-D-Glucan B-(1,3)-D-Glucan Intrp Blood Type Pending Antibody Screen Pending Crossmatch See Detail PG Care Time/CCT Total # of Minutes Spent Total Time Spent with Patient: Total time spent is greater than 50% in coordination of care (as documented) at patient's floor/unit and/or counseling patient: Coding Level of Care Code 38282 SUB INP/OBS CARE 3/50MIN Diagnoses Acute hyperkalemia E87.5 ANJUM (acute kidney injury) N17.9 At high risk of tumor lysis syndrome Z91.89
--- NOTE | 2023-03-14 10:15 | Infectious Disease Progress Nt ---
Date of Service March 14, 2023 Assessment & Plan (1) Acute hypoxic respiratory failure: (2) Neutropenic fever: (3) Enterovirus infection: (4) Rhinovirus infection: (5) Immunoglobulin deficiency, acquired: Plan This is a 67-year-old male with past medical history of CLL with pancytopenia, recent spontaneous intrapelvic hemorrhage presents with worsening cough, fever and sob..He was admitted to [facility] from 01/30-02/02 for pneumonia and michelle and treated with Augmentin and dexamethasone for increasing bulky adenopathy. His is at bedside and provides additional history. For the last 1 month he has been more fatigue with increased BL LE swelling . His chemotherapy has been on hold after diagnosed with spontaneous intrahepatic hematoma in 12/2022. He was diagnosed with Covid 19 on 02/20 and completed 5 days of Paxlovid. He denies requiring supplemental o2 or much respiratory symptoms at the time. His and other family member were also Covid positive. On 03/05, he traveled to [place] to see a new oncologist to discuss new therapies. While in office, he developed fever, and sob. He was sent the the Ed there for Cxr which showed pneumonia. He received 1 dose Ceftriaxone and azithromycin and was discharged on Augmentin and azithromycin ( he and wanted to come back to [place]) . His symptoms worsened so he presented to [facility]. In the Ed he had increased work of breathing/tachypneic. He was initially on bipap. Bio fire + covid, +enterovirus. Procalcitonin 1.8. Cxr shows patchy bibasilar and left midlung airspace opacities and bilateral hilar lymphadenopathy progressed since 01/07/23. He is febrile and neutropenic. He was started on IV vanco/cefepime/azithromycin. Mrsa nares negative, so vancomycin discontinued. Bc and UC sterile to date. ID consulted for neutropenic fever. On exam he is uncomfortable and short of breath. He denies any travel except to [place] last week for onc visit. He endorses LE swelling and cough. He denies chest pain, rash , LARA, pain at port site, rashes. He has anxiety related to his disease process and needing hospitalization He remains febrile with Tm, 39.1 WBc 28 k, plts 20k, ANC 0.37 on my initial visit Micro Bc 10/6 NGTD UC 10/ sterile biofire +03/07 + covid 19, +enterovirus ( also + 11/2022) mrsa nares 03/08 negative BC 03/10 CONS 1/4 bottles Abx Vanco 03/07, restarted 03/12- ongoing Cefepime 03/07-03/11 Azith 03/07- ongoing meropenem 03/11-ongoing voriconazole 03/11-ongoing # CLL # Multifocal Pneumonia #Acute hypoxic respiratory failure # Neutropenic fever # Chronic neutropenia #Septic shock #Covid on 02/20- sp paxlovid. out of window for other covid therapies #Recurrent Enterovirus positivity on biofire ( likely from viral shedding since immunocompromised ) #Port in place He was diagnosed with Covid 19 about 3 weeks ago and is out the window for additional Covid therapies. His test remains positive and is expected as he is immunocompromised. Additionally, his biofire is again positive for enterovirus.THis is likely secondary to viral shedding in an immunocompromised pt. It could also represents infection. There is no anti viral treatment for enterovirus. I think his current process is most likely secondary to a superimposed Bacterial infection post recent Covid 19 infection. He is neutropenic and febrile, so he was covered bacteria including Pseudomas. IV vancomycin was initially discontinued as MRSA nares was negative. Despite broad abx coverage, he remained febrile with tenous respiratory status. Voriconazole was added as he is chronically neutropenic and at risk for Aspergillus infection. Despite this his condition worsened. Repat Procal increased to 5. 03/12 intubated, CT lung with progressive lymphadenopathy and multilobar pneumonia.. Ct head no acute process. + Moderate to severe mucosal thickening of the paranasal sinuses with air-fluid levels likely representing acute on chronic process. Ct abd with bulky adenopathy of ab/pelvis . He underwent bronchoscopy with BAL: studies and cx obtained, He is now in septic shock with multiorgan failure. He is on 2 pressors and oliguric with worsening renal function . Repeat BC with 1/4 bottles of staph epi (likely a contaminant) but in setting of septic shock with port, will await repeat BC results before d/c vanco Recommendation. -Fullow up Bronch/BAl Gram stain, bacterial fungal cx, AFB smear and culture, cell count/differential cont vanco, pending repeat BC -Continue meropenem dose for current renal function 500 mg iv q 8hrs -Continue voriconazole He has CLL with prolonged neutropenia putting him a risk for invasive aspergillosis. since now intubated, will d/w pharm if can oral can be restarted -Pending GCSF -Continue azithromycin pending legionella ag. -Follow up Repeat BC 03/12 -Follow up fungal cx -Follow up legionella ag -Follow up BD glucan ( fungitell) -would continue covid isolation for now ( it has been 21 days but he continues to shed, pcr remains+ ) ID will continue to follow. Jaime Baeza MD, MPH Infectious Disease ID Connect [facility], ID Division Call [phone] with questions Admission and Anticipated Discharge Date Admission Date: March 07, 2023 Subjective This patient recommendation is based on a telemedicine consult request which was completed asynchronously through chart review and information provided by the primary physician. The patient was not seen or examined today. The evaluation is consultative in nature and all patient care and treatment decisions can either be accepted or rejected by the patient's primary hospital-based treating physician using their own independent medical judgment for their patient. Time Spent Reviewing Chart: 11 - 20 minutes sedated and intubated Fio2 40%, on pressors ( levo/vaso) Fever curve improving Results & Data Vital Signs (Past 12 Hours) Vital Signs Temp Pulse Resp BP Pulse Ox FiO2 03/14/23 08:00 69 28 H 98 50 03/14/23 05:00 69 28 H 131/64 98 03/14/23 05:21 69 03/14/23 04:00 70 28 H 128/63 97 03/14/23 03:00 68 28 H 133/65 99 03/14/23 02:00 68 28 H 136/64 99 03/14/23 01:00 70 28 H 132/66 99 03/14/23 00:00 68 28 H 131/64 98 03/13/23 23:00 69 28 H 129/62 99 03/14/23 04:14 37.1 C 03/14/23 04:00 50 03/14/23 04:03 69 28 H 97 40 Laboratory Results Short CBC 03/14/23 Range/Units 04:41 WBC 62.63 H* (4.8-10.8) K/ul Hgb 7.3 L (14.0-18.0) g/dl Hct 22.9 L (42.0-52.0) % Plt Count 20 L* (130-400) K/uL BMP 03/13/23 03/14/23 14:45 04:41 Sodium 134 L 131 L Potassium 4.8 4.4 Chloride 99 95 L Carbon Dioxide 23 25 BUN 72 H 73 H Creatinine 4.24 H D 4.48 H Glucose 159 H 138 H Calcium 8.1 L 7.8 L Liver Function 03/14/23 Range/Units 04:41 Total Bilirubin 0.6 (0.2-1.0) mg/dl Direct Bilirubin 0.4 H (0-0.2) mg/dl AST 20 (13-39) U/L ALT 10 (7-52) U/L Alkaline Phosphatase 69 (34-104) U/L Albumin 2.6 L (3.4-5.0) gm/dl Diagnostic Findings Microbiology 03/12/23 19:13 Blood Aerobic Blood Culture - Preliminary Coag neg staph not lugdunensis 03/12/23 19:13 Blood Anaerobic Blood Culture - Preliminary No growth in Anaerobic bottle after 24 hours. 03/12/23 Unknown Bronch Wash,Left Lower Lobe Acid Fast Bacilli Smear - Final 03/12/23 06:52 Blood Aerobic Blood Culture - Preliminary No growth in Aerobic bottle after 48 hours. 03/12/23 06:52 Blood Anaerobic Blood Culture - Preliminary No growth in Anaerobic bottle after 48 hours. 03/12/23 06:51 Blood Aerobic Blood Culture - Preliminary No growth in Aerobic bottle after 48 hours. 03/12/23 06:51 Blood Anaerobic Blood Culture - Preliminary No growth in Anaerobic bottle after 48 hours. 03/12/23 19:13 Blood Aerobic Blood Culture - Preliminary No growth in Aerobic bottle after 24 hours. 03/12/23 19:13 Blood Anaerobic Blood Culture - Preliminary No growth in Anaerobic bottle after 24 hours. 03/12/23 Unknown Bronch Wash,Left Lower Lobe Gram Stain - Final 03/12/23 Unknown Bronch Wash,Left Lower Lobe Bronchial Culture - Preliminary No growth 03/12/23 Unknown Bronch Wash,Left Lower Lobe Fungal Smear - Final 03/07/23 17:23 Blood Aerobic Blood Culture - Final No growth in Aerobic bottle after 5 days. 03/07/23 17:23 Blood Anaerobic Blood Culture - Final No growth in Anaerobic bottle after 5 days. 03/10/23 22:30 Blood Aerobic Blood Culture - Preliminary Coag neg staph not lugdunensis 03/10/23 22:30 Blood Anaerobic Blood Culture - Preliminary No growth in Anaerobic bottle after 48 hours. 03/10/23 13:08 Blood Aerobic Blood Culture - Preliminary No growth in Aerobic bottle after 48 hours. 03/10/23 13:08 Blood Anaerobic Blood Culture - Final 03/10/23 13:08 Blood Fungal Smear - Final 03/07/23 19:05 Urine,Clean Catch Urine Culture - Final No growth - less than 1,000 colonies/mL. Chest X-Ray 03/12/23 11:50 XR chest 1V portable HISTORY: Respiratory failure. intubation COMPARISON: Chest 03/10/2023. FINDINGS: The endotracheal tube terminates 8.6 cm from the gabino. This should be advanced by approximately 4 to 5 cm. Nasogastric tube terminates below the diaphragm. The tip is not included on this study. A left-sided Port-A-Cath terminates in the SVC. This remains unchanged. There are low lung volumes. No pneumothorax. The cardiac silhouette remains enlarged. Suspect small bilateral pleural effusions. Bilateral mid to lower lung zone airspace opacities persist. This is most pronounced within the left midlung zone. Bilateral mediastinal and hilar prominence again noted. This could represent underlying lymphadenopathy. IMPRESSION: 1. The endotracheal tube terminates 8.6 cm from the gabino. This should be advanced by approximately 4 to 5 cm. 2. The nasogastric tube terminates below the diaphragm. 3. Bilateral airspace opacities persist. 4. Mediastinal and hilar fullness suggests underlying lymphadenopathy. ACT 112: Negative or not required by law. Electronically signed by: Eron Abdalla M.D. 03/12/2023 12:44 PM KUB X-Ray 03/12/23 11:51 KUB CLINICAL HISTORY: OG placement COMPARISON STUDY: CT of the abdomen and pelvis January 30, 2023. FINDINGS: The tip of the nasogastric tube is within the distal body of the stomach. Visualized bowel gas pattern is unremarkable. IMPRESSION: Tip of nasogastric tube within the distal body of the stomach. ACT 112: Negative or not required by law. Electronically signed by: Pito Curiel M.D. 03/12/2023 12:33 PM Abdomen/Pelvis CT 03/12/23 12:[address] WITHOUT CONTRAST CT DOSE: HISTORY: fever, acute renal failure TECHNIQUE: Multiaxial CT images of the abdomen and pelvis were performed without contrast. A dose lowering technique was utilized adhering to the principles of ALARA. COMPARISON STUDY: Abdomen and pelvis CT 01/30/2023. FINDINGS: Bibasilar consolidation most pronounced on the left likely represents a pneumonia. This is better appreciated on the same day chest CT. Partially visualized lymphadenopathy within the lower chest again noted. Nasogastric tube terminates in the distal stomach. No pneumoperitoneum. No pneumatosis. No acute fractures identified. Small fat-containing umbilical hernia again noted. There is a large left lower quadrant parastomal hernia containing multiple loops of nonobstructed bowel. This remains unchanged. There is moderate body wall edema which has progressed. The bladder is decompressed by Marin catheter. Mass effect along the bladder from the pelvic lymphadenopathy has slightly improved. Hyperdense material within the gallbladder may represent sludge or small stones. This remains unchanged. The unenhanced liver and adrenal glands are unremarkable. No hydronephrosis. Moderate bilateral perinephric edema has slightly progressed. The spleen is enlarged measuring 16 cm in length. This has slightly progressed. The unenhanced pancreas appears unremarkable. Normal caliber abdominal aorta. Trace pelvic free fluid. Suboptimal evaluation for bowel pathology due to the lack of intravenous and oral contrast. However, no evidence for a bowel obstruction. Questionable thickening of the ascending colon is likely due to the patient's underlying edema. No definite bowel wall thickening identified. Bulky lymphadenopathy seen throughout the abdomen and pelvis is similar to the prior study. Small amount of residual right ex traperitoneal hemorrhage adjacent to Large right pelvic lymph node has improved. This is primarily low density and therefore favors old hemorrhage. No evidence for acute hemorrhage at this time. IMPRESSION: 1. Consolidative airspace opacities within the lung bases are better appreciated on the same day chest CT. This likely represents a pneumonia. 2. Bulky lymphadenopathy within the abdomen and pelvis persists. This similar to the prior study. 3. Moderate body wall edema has progressed. 4. Splenomegaly has slightly progressed. 5. Questionable thickening of the ascending colon is likely due to the patient's edematous state. Otherwise, no definite bowel wall thickening or obstruction. 6. Near-complete resolution of the small amount of chronic residual hemorrhage within the right pelvic sidewall. No progressive or acute retroperitoneal hemorrhage identified. 7. Additional findings as described above. ACT 112: Negative or not required by law. Electronically signed by: Eron Abdalla M.D. 03/12/2023 1:[address] 03/12/23 12:51 CT head/brain wo con CLINICAL HISTORY: 67 years-old Male with ALOC. Acutely altered mental status TECHNIQUE: Multiple axial CT images of the head were obtained without contrast. A dose lowering technique was utilized adhering to the principles of ALARA. COMPARISON: Brain MRI 02/23/2016 FINDINGS: No acute intracranial hemorrhage, midline shift, intracranial mass, hydrocephalus, territorial ischemia or abnormal extra-axial collection. Mild progression of the chronic microvascular ischemic disease. Chronic appearing left periventricular lacunar infarct. Dense cerebral vascular calcifications. The calvarium is intact. Right-sided lens repair. Small right mastoid effusion. Moderate to severe mucosal thickening of the paranasal sinuses with air-fluid levels likely representing acute on chronic process. IMPRESSION: No acute intracranial abnormality. ACT 112: Negative or not required by law. The above report was generated using voice recognition software. It may contain grammatical, syntax or spelling errors. Electronically signed by: Benedict Anderson M.D. 03/12/2023 1:[address] 03/12/23 12:55 CT OF THE CHEST WITHOUT IV CONTRAST CLINICAL HISTORY: Hypoxia. CLL. COMPARISON STUDY: Chest CT October 16, 2022. Chest radiograph performed earlier today. PET/CT December 25, 2022. CT DOSE: 3636.57 mGy.cm TECHNIQUE: Axial images of the chest were obtained without IV contrast. Images were reviewed in the axial, sagittal, and coronal planes. IV contrast was not administered for this examination. Automated exposure control was utilized for the study. A dose lowering technique was utilized adhering to the principles of ALARA. FINDINGS: The tip of the endotracheal tube is 5.8 cm above the gabino. Tip of nasogastric tube is within the distal body of the stomach. There is moderate cardiomegaly and extensive coronary artery calcification. There is no pericardial effusion. There is no pneumothorax. Trace left pleural effusion. There has been interval dominant of extensive multifocal consolidation within the lungs. The left lower lobe is nearly completely opacified with air bronchograms. Extensive left upper lobe and right lower lobe consolidation is present. There are additional scattered alveolar opacities within the lungs. No cavitation is present.. No central obstructing mass is identified. There has been significant progression of extensive lower cervical and thoracic lymphadenopathy since PET/CT of December 25, 2022. Index right axillary node measures 8.5 x 4.2 cm. Index left axillary node measures 4.4 x 4.1 cm. It previously measured 3.7 x 3.6 cm. No suspicious lesions within the bony thorax are noted. Upper abdominal adenopathy is also significantly progressed. Splenomegaly has increased. IMPRESSION: 1. Interval development of extensive multifocal consolidation, greatest within the left lung. Associated air bronchograms. The findings favor pneumonia or aspiration pneumonitis. No central obstructing mass. 2. Significant progression of lymphadenopathy since PET/CT of December 25, 2022. This is consistent with the history of lymphoma. 3. Tip of endotracheal tube 5.8 cm above the gabino. The tube could be advanced 3 cm. ACT 112: Negative or not required by law. Electronically signed by: Pito Curiel M.D. 03/12/2023 1:55 PM Chest X-Ray 03/12/23 14:05 XR chest 1V portable HISTORY: 67 years-old Male central line placement right IJ status post place ment of a right IJ central venous catheter COMPARISON: Chest CT of same day TECHNIQUE: AP view of the chest FINDINGS: Cardiac silhouette is enlarged. Endotracheal tube overlies the midline, bryan roximately 7.4 cm superior to the gabino. A right IJ central venous catheter is noted in the expected location of the upper SVC. Left subclavian [id number]-Nolf catheter is noted in the mid aspect of the SVC. Distal tip enteric tube projects inferiorly outside the [id number]. Distal abdominal lymphadenopathy with mixed interstitial and alveolar opacities noted. Dense airspace consolidation within the lung bases and left midlung are again seen. Small pleural effusions. Degenerative changes of the shoulders and spine. IMPRESSION: 1. Lines and tubes as above. 2. No pneumothorax. 3. Persistent mixed interstitial and alveolar opacities suggestive of pneumonia with small pleural effusions. 4. Hilar lymphadenopathy. ACT 112: Negative or not required by law. The above report was generated using voice recognition software. It may contain grammatical, syntax or spelling errors. Electronically signed by: Benedict Anderson M.D. 03/12/2023 3:05 PM Chest X-Ray 03/13/23 07:00 SINGLE VIEW CHEST CLINICAL HISTORY: Respiratory failure FINDINGS: An AP, portable, upright chest radiograph is compared to chest x-ray and chest CT dated 03/12/2023. An endotracheal tube, enteric tube, a right internal jugular central venous catheter, and a left subclavian central venous infusion port are unchanged in position. The heart is enlarged. The pulmonary v asculature is noncongested. Multifocal airspace consolidation is again seen throughout both lungs. This is similar to previous. No pneumothorax is seen. The skeletal structures are osteopenic. The bony thorax is grossly intact. IMPRESSION: 1. Multifocal airspace consolidation has not significantly changed from yesterday. 2. Stable lines and tubes. 3. Cardiomegaly without radiographic evidence of congestive failure. ACT 112: Negative or not required by law. Electronically signed by: Neymar Cohn M.D. 03/13/2023 7:22 AM Medications Administered Home Medications Medication Instructions Recorded Confirmed Last Taken hydrocortisone 2.5 % topical cream 1 applic topical BID PRN Eczema 07/27/19 03/07/23 11/10/19 09:00 acetaminophen 325 mg capsule 650 mg PO Q6H PRN Fever Or Pain 12/10/19 03/07/23 07/24/20 08:00 (Tylenol) sildenafil 25 mg tablet 25 mg PO DAILY PRN sexual activity 06/19/21 03/07/23 Unknown #20 tabs blood-glucose meter #1 ea 11/20/21 03/07/23 Unknown lancets (Accu-Chek Softclix #100 ea 11/20/21 03/07/23 Unknown Lancets) blood sugar diagnostic #300 ea 11/23/21 03/07/23 Unknown glimepiride 2 mg tablet 4 mg PO QAM #180 tabs 02/05/22 03/07/23 03/07/23 multivitamin 1 tab PO DAILY 02/21/22 03/07/23 03/07/23 acalabrutinib 100 mg capsule 0 mg PO DAILY 06/20/22 03/07/23 07/31/22 (Calquence) oxycodone 5 mg tablet 5 mg PO Q4H PRN Pain 01/30/23 03/07/23 Unknown allopurinol 200 mg tablet 200 mg PO BID #180 tabs 02/28/23 03/07/2303/07/23 amoxicillin 875 mg-potassium 1 tab PO Q12H 03/07/23 03/07/23 03/07/23 clavulanate 125 mg tablet magnesium 200 mg tablet 400 mg PO DAILY 03/07/23 03/07/23 03/07/23 atorvastatin 40 mg tablet 40 mg PO QAM #90 tabs 03/13/23 Unknown levothyroxine 50 mcg tablet 50 mcg PO QAM #90 tabs 03/13/23 Unknown Active Medications Generic Name Dose Route Start Last Admin Trade Name Freq PRN Reason Stop Dose Admin Dextrose 25 - 50 ml 03/07/23 22:54 03/08/23 06:07 Dextrose 50% 50 Ml Syringe IV 04/06/23 22:53 50 ml UD PRN Administration Hypoglycemia Protocol Protocol Fentanyl Citrate 50 mcg 03/12/23 11:19 03/13/23 02:00 Fentanyl Bolus From Bag IV 03/26/23 11:18 50 mcg Q60M PRN Administration Pain or Agitation Filgrastim 480 mcg 03/13/23 10:30 03/13/23 12:23 Filgrastim 480 Mcg/1.6 Ml Vial SC 04/12/23 10:29 480 mcg DAILY BELLA Administration Azithromycin 250 mg/ Dextrose 252.5 mls @ 125 mls/hr 03/08/23 18:00 03/13/23 19:11 IV 03/15/23 17:59 Infused Q24H BELLA Infusion Propofol 1,000 mg in 100 mls @ 16.425 mls/hr 03/12/23 11:30 03/14/23 08:08 Diprivan IV 03/15/23 11:29 25 mcg/kg/min .Q6H6M BELLA 16.4 mls/hr Administration Protocol 25 MCG/KG/MIN Fentanyl Citrate 2,500 mcg in 250 mls @ 12.5 mls/hr 03/12/23 11:30 03/14/23 07:08 Fentanyl Citrate IV 03/26/23 11:29 125 mcg/hr .Q20H BELLA 12.5 mls/hr Titration Protocol 125 MCG/HR Voriconazole 350 mg/ Sodium 100 mls @ 66.667 mls/hr 03/12/23 13:00 03/14/23 03:15 Chloride IV 03/19/23 12:59 Infused Q12H BELLA Infusion Acetaminophen 1,000 mg in 100 mls @ 400 mls/hr 03/12/23 20:25 03/13/23 09:32 Ofirmev IV 03/15/23 20:24 Infused Q8H PRN Infusion Fever Norepinephrine Bitartrate 4 mg in 250 mls @ 57.488 mls/hr 03/12/23 20:45 03/14/23 07:08 Levophed/D5w IV 04/11/23 20:44 0.14 mcg/kg/min .Q4H21M BELLA 57.5 mls/hr Titration Protocol 0.14 MCG/KG/MIN Vasopressin 20 units/ Sodium 101 mls @ 12.12 mls/hr 03/12/23 21:45 03/14/23 07:08 Chloride IV 04/11/23 21:29 0.04 unit/min .Q8H20M BELLA 12.1 mls/hr Infusion 0.04 UNIT/MIN Sodium Bicarbonate 150 meq/ 1,150 mls @ 100 mls/hr 03/12/23 21:45 03/14/23 08:40 Sterile Water IV 04/11/23 21:29 100 mls/hr .[id number] BELLA Administration Insulin Human Regular 250 250 mls @ 2.5 mls/hr 03/13/23 06:45 03/14/23 07:08 units/ Sodium Chloride IV 04/12/23 06:44 2.5 units/hr .Q24H BELLA 2.5 mls/hr Titration Protocol 2.5 UNITS/HR Vancomycin HCl 1.48 ml/ 1.48 mls @ 355.2 mls/hr 03/13/23 16:00 03/13/23 16:42 Syringe INTC 03/20/23 15:59 355.2 mls/hr Q24H BELLA Administration Protocol Meropenem 500 mg/ Syringe 10 mls @ 2 mls/min 03/14/23 02:00 03/14/23 03:26 IV 03/18/23 01:59 2 mls/min Q12H BELLA Administration Protocol Insulin Aspart 0 units 03/13/23 07:30 03/14/23 08:08 Insulin Aspart Per Unit Charge SC 04/12/23 07:29 Not Given ACHS BELLA Miscellaneous 15 - 30 gm 03/07/23 22:54 03/08/23 17:12 Carbohydrates For Hypoglycemia PO 04/06/23 22:53 15 gm UD PRN Administration Hypoglycemia Protocol Nutritional Formula 1,000 ml 03/12/23 17:15 03/12/23 17:42 Peptamen Intense Vhp 1.0 Daniel 1,000 Ml Bag OG 04/11/23 17:14 1,000 ml .See Protocol BELLA Administration Protocol Ondansetron HCl 4 mg 03/07/23 22:54 03/10/23 11:16 Ondansetron Inj 2 Mg/Ml 2 Ml Vial IV 04/06/23 22:53 4 mg Q6H PRN Administration Nausea Propofol 20 mg 03/12/23 11:19 03/13/23 00:30 Propofol Bolus From Bag IV 03/15/23 11:18 20 mg Q5M PRN Administration Sedation Sterile Water 30 ml 03/12/23 17:15 03/12/23 17:42 Tube Feeding Water Flush OG 04/11/23 17:14 30 ml Q4 BELLA Administration
[2023-03-14] MEDS: PANTOprazole 40 MG in SYRINGE 0 ML IV SCH (10:52)
--- NOTE | 2023-03-14 13:14 | Pharmacy Report ---
Pharmacy PK ABX Note - Date of Service March 14, 2023 - Assessment and Plan Laboratory Tests 03/10/23 03/11/23 03/12/23 03:53 12:25 06:51 Creatinine 1.82 H 2.11 H 2.72 H D Assessment 03/14: Random level this morning 21, SCr continues to increase. Will redose with 500 mg x 1 to target peak of 30, with random level in AM 03/13: Patient's scr continue to rise but was still making some urine. Given this and after assessment of today's random level of 16.3, will plan to redose one today and recheck a random level in the morning to further guide supplemental doses. Patient also started in abx lock therapy today. 03/12 67 year old M receiving meropenem, voriconazole, and azithromycin for treatment of pneumonia. Now adding Vancomycin back (had received 03/07-03/08), for 1/4 blood cultures positive for Staph Epi and persistent fevers with port in place. Repeat blood cultures today. History of CLL, febrile/neutropenic. MRSA nasal (-). CKD. Will give loading dose and check random level in morning, SCr elevated significantly today. Plan Vancomycin * Redose: 500 mg IV x 1 @1800 today * Random level with AM labs Pharmacy will continue to follow and will adjust dose/frequency as necessary. Thank you.
--- NOTE | 2023-03-14 13:26 | Pharmacy Report ---
Pharmacy Glycemic Short Note 2 - Date of Service March 14, 2023 - Glycemic Short BSG Results (Last 24 hours): 03/13/23 03/13/23 03/13/23 13:33 14:45 14:50 Glucose 159 H POC Glucose (other) 174 H 156 H 03/13/23 03/13/23 03/13/23 17:09 19:51 23:39 Glucose POC Glucose (other) 140 H 162 H 151 H 03/14/23 03/14/23 03/14/23 01:45 03:36 04:41 Glucose 138 H POC Glucose (other) 140 H 133 H 03/14/23 03/14/23 03/14/23 05:59 08:22 11:45 Glucose POC Glucose (other) 128 H 121 H 114 H OUTPATIENT ANTIDIABETIC REGIMEN: * glimepiride 4mg qam * A1c: 7.5% ASSESSMENT: 03/14: * Patient remains on multiple vaspressors, antiinfective agents. BSGs have been stable on insulin infusion at 2.5 units/hr. Continuing insulin infusion given medical complexity/critical illness. Tube feeds are held. 03/13 * Patient with a history of CLL presenting with septic shock and is immunocompromised. Patient on multiple antiinfective and is requiring vasopressors. PLAN FOR INPATIENT GLYCEMIC CONTROL: * Hold outpatient oral diabetes medications * Insulin infusion initiated for hyperglycemia in the critical care setting. Discussed at multidisciplinary rounds and will plan to continue this for the time being given acute status. Patient receiving multiple infusions, some in dextrose containing fluids. Goal range is 110-180mg/dL.
[2023-03-14] MEDS: INSULIN REGULAR 250 UNITS in SODIUM CHLORIDE 0.9% 247.5 ML IV SCH (16:33)
[2023-03-14] MEDS ORDERED: VANCOMYCIN HCL 500 MG in NSS 100mL IV SCH (18:00)
[2023-03-14 18:04] LABS: BUN Creatinine Ratio 17.4 (10-20); Calcium 7.4 mg/dl (8.6-10.3); Creatinine Clr Calc Pharmacy 21.3 ml/min; Est GFR (Non-African American) 12.9 ml/min; Potassium 4.3 mmol/L (3.5-5.1); Uric Acid 7.9 mg/dl (2.6-7.2)
[2023-03-14] MEDS: AZITHROMYCIN 250 MG in DEXTROSE 5% 250 ML IV SCH (18:07)
[2023-03-14] MEDS ORDERED: VANCOMYCIN HCL 500 MG in NSS 100mL IV ONE (19:15)
[2023-03-14] MEDS: fentaNYL citrate 2,500 MCG/250 ML BAG IV SCH (19:59)
[2023-03-14 21:48] LABS: BUN Creatinine Ratio 16.7 (10-20); Calcium 7.4 mg/dl (8.6-10.3); Creatinine Clr Calc Pharmacy 21.5 ml/min; Est GFR (African American) 15.2 ml/min; Est GFR (Non-African American) 13.1 ml/min; Potassium 4.4 mmol/L (3.5-5.1)
[2023-03-14] MEDS ORDERED: STAT IV STA (22:55)
[2023-03-14] MEDS: SODIUM BICARBONATE 8.4% 150 MEQ in DEXTROSE 5% 1,000 ML IV SCH (23:24)
[2023-03-15] MEDS: VORICONAZOLE 350 MG in 0.9 % SODIUM CHLORIDE 65 ML IV SCH ×2 (00:56→13:37)
[2023-03-15] MEDS: MEROPENEM 500 MG in SYRINGE 0 ML IV SCH ×2 (00:56→13:38)
[2023-03-15] MEDS: propofoL 1,000 MG/100 ML VIAL IV SCH ×7 (02:58→20:29)
[2023-03-15] MEDS: NOREPINEPHRINE/D5W 4 MG/250 ML PLCT IV SCH ×4 (03:27→20:08)
[2023-03-15 04:46] LABS: BUN Creatinine Ratio 17.4 (10-20); Calcium 7.2 mg/dl (8.6-10.3); Est GFR (African American) 14.8 ml/min; Est GFR (Non-African American) 12.7 ml/min; Phosphorus 6.9 mg/dl (2.5-4.9); Potassium 4.1 mmol/L (3.5-5.1); Uric Acid 7.9 mg/dl (2.6-7.2)
[2023-03-15 05:26] LABS: Hematocrit (blood only) 23.5 % (42.0-52.0); Hemoglobin 7.7 g/dl (14.0-18.0); Mean Corpuscular Hemoglobin 30.6 pg (25.0-34.0); Mean Corpuscular Hgb Conc 32.8 g/dL (32.0-36.0); Mean Corpuscular Volume 93.3 fL (80.0-100.0); Platelet Count 17 K/uL (130-400); RDW Coefficient of Variation 23.7 % (11.5-14.5); Red Blood Count 2.52 M/uL (4.70-6.10); White Blood Count 68.39 K/ul (4.8-10.8)
[2023-03-15 05:52] LABS: Basophils # (auto) 0.01 K/uL (0.00-0.20); Eosinophils # (auto) 0.05 K/uL (0.00-0.50); Eosinophils % (auto) 0.1 %; Immature Granulocytes # (auto) 0.05 K/uL (0.01-0.20); Immature Granulocytes % (auto) 0.1 %; Lymphocytes # (auto) 61.39 K/uL (1.20-3.40); Lymphocytes % (auto) 89.8 %; Monocytes # (auto) 6.07 K/uL (0.11-0.59); Monocytes % (auto) 8.9 %; Neutrophils # (auto) 0.82 K/uL (1.40-6.50); Neutrophils % (auto) 1.1 %
--- NOTE | 2023-03-15 07:22 | Hospitalist Progress Note ---
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 On vancomycin. started 03/07 Blood culture 1 out of 4 bottles growing staph. Likely contaminant. Repeat blood cultures ordered by ID. - on Azithromycin started 03/08 -On Voriconazole started 03/11 - follow up on fungal culture, Legionella, BD glucan CT chest 03/12 shows extensive multifocal consolidation. 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 concern for pelvic/retroperitoneal bleed, did receive blood product support (3) ANJUM (acute kidney injury): Plan: on CKD stage III Per steel die engraver, declined transfer to a tertiary care center for continuous dialysis At risk for tumor lysis syndrome rasburicase may be offered for uric acid greater than 12. (4) COVID-19: Plan: Patient diagnosed with Covid on 02/20/23. He was treated with Paxlovid. -Maintain isolation precautions for now - patient immunocompromised with underlying malignancy - prolonged isolation (5) Acute diastolic CHF (congestive heart failure): Plan: patient appeared to be volume overloaded -Patient with minimal elevation of troponin. 28.5 --> 31.3. No acute ischemic changes on EKG.suspect demand ischemia - echo showed no wall motion abnormalities or depressed EF Currently needing pressor support to maintain blood pressure (6) T2DM (type 2 diabetes mellitus): Plan: -ISS as needed (7) Hypothyroidism: Plan: Chronic hold Synthroid for now Plan Ppx - SCDs (Lovenox discontinued due to thrombocytopenia and anemia) Admission and Anticipated Discharge Date Admission Date: March 07, 2023 Subjective Sedated ventilated on pressor support, still with poor urine output. Attempted IV diuresis by nephrology Physical Exam Physical Exam: Patient stated appears comfortable. Coarse breath sounds are heard bilaterally in lung richard. Abdomen is soft there is a colostomy his left lower quadrant Results & Data Results & Data Vital Signs (Past 12 Hours) Vital Signs Temp Pulse Resp BP Pulse Ox O2 Del Method FiO2 03/15/23 06:00 99.1 F 72 28 H 126/55 L 93 03/15/23 06:00 126/55 L 03/15/23 05:00 77 29 H 125/56 L 94 03/15/23 05:00 99.0 F 03/15/23 03:50 71 29 H 98 40 03/14/23 22:35 72 30 H 96 50 03/15/23 04:00 70 28 H 133/63 98 03/15/23 04:34 99.0 F 03/15/23 00:05 99.3 F 03/14/23 21:33 100.4 F H 03/15/23 04:00 40 03/15/23 03:00 69 25 H 132/62 97 03/15/23 02:00 69 25 H 134/61 98 03/15/23 01:00 69 29 H 132/62 98 03/15/23 00:00 70 29 H 134/63 95 03/15/23 00:00 134/63 03/14/23 23:00 72 30 H 132/60 95 03/14/23 22:40 72 29 H 131/60 96 03/14/23 22:00 73 29 H 131/57 L 97 03/14/23 21:30 72 28 H 124/55 L 100 03/14/23 21:10 73 28 H 121/55 L 100 03/15/23 00:00 50 03/15/23 00:00 72 03/14/23 23:39 Mechanical Vent 03/14/23 20:00 50 03/14/23 20:30 72 28 H 122/55 L 100 80 03/14/23 20:00 75 28 H 126/57 L 100 03/14/23 20:37 74 28 H 93 80 03/14/23 19:40 75 28 H 126/56 L 99 80 03/14/23 19:30 75 28 H 138/62 98 80 03/14/23 19:26 76 28 H 132/61 87 L 03/14/23 19:22 82 28 H 86/48 L 91 Laboratory Results Reviewed CBC reviewed chemistry PG Care Time/CCT Total # of Minutes Spent Total Time Spent with Patient: Total time spent is greater than 50% in coordination of care (as documented) at patient's floor/unit and/or counseling patient: Coding Level of Care Code 00565 SUB INP/OBS CARE 3/50MIN Diagnoses Septic shock A41.9; R65.21 CLL (chronic lymphocytic leukemia) C91.90 ANJUM (acute kidney injury) N17.9 COVID-19 U07.1 Acute diastolic CHF (congestive heart failure) I50.31 T2DM (type 2 diabetes mellitus) E11.9 Hypothyroidism E03.9
[2023-03-15] MEDS: INSULIN ASPART PER UNIT CHARGE SC SCH ×5 (07:50→23:49)
[2023-03-15] MEDS: SODIUM BICARBONATE 8.4% 150 MEQ in DEXTROSE 5% 1,000 ML IV SCH (08:58)
--- NOTE | 2023-03-15 09:13 | Nephrology Progress Note ---
Date of Service March 15, 2023 Assessment & Plan (1) ANJUM (acute kidney injury): Plan: * Nonoliguric. 765 cc last 24 hours, but net 5.3 L volume positive since admission * FiO2 has been weaned to 40% this am * Vasopressin has been stopped. 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 Recommend continue w/ supportive care. HD may be difficult due to hemodynamic instability. Family does not wish transfer for CRRT * Will provide trial of IV Furosemide and monitor UO, PRP (2) Pneumonia: Plan: * Multifocal pneumonia * On Azithromycin, Vancomycin, Meropenem (3) COVID-19: Plan: * COVID and enterovirus + on admission (4) CLL (chronic lymphocytic leukemia): Plan: * Profound leukocytosis with progressive anemia, thrombocytopenia Admission and Anticipated Discharge Date Admission Date: March 07, 2023 Subjective Mr. Gray was evaluated in the ICU this morning. His Jacinda was present at bedside. Mr. Gray remains sedated, mechanically ventilated, on pressor support. Review of Systems Review of Systems: Unobtainable due to endotracheal tube Physical Exam Eyes: PERRL, conjunctivae normal, anicteric sclerae ENMT: orotracheal intubation Neck: trachea midline, no thyromegaly Respiratory: coarse BS bilaterally Cardiovascular: Rate/Rhythm: regular rate and regular rhythm Gastrointestinal (Abdomen): Inspection/Auscultation: + hypoactive bowel sounds Skin: normal turgor Results & Data Vital Signs (Past 12 Hours) Vital Signs Temp Pulse Resp BP Pulse Ox O2 Del Method FiO2 03/15/23 08:00 Mechanical Vent 40 03/15/23 08:00 40 03/15/23 08:00 75 03/15/23 08:00 75 28 H 87 L 03/15/23 08:00 37.4 C 119/51 L 03/15/23 07:30 73 28 H 93 03/15/23 07:00 74 28 H 93 03/15/23 07:00 125/55 L 03/15/23 06:30 74 28 H 93 03/15/23 07:49 74 28 H 93 40 03/15/23 06:00 37.3 C 72 28 H 126/55 L 93 03/15/23 06:00 126/55 L 03/15/23 05:00 77 29 H 125/56 L 94 03/15/23 05:00 37.2 C 03/15/23 03:50 71 29 H 98 40 03/14/23 22:35 72 30 H 96 50 03/15/23 04:00 70 28 H 133/63 98 03/15/23 04:34 37.2 C 03/15/23 00:05 37.4 C 03/14/23 21:33 38 C H 03/15/23 04:00 40 03/15/23 03:00 69 25 H 132/62 97 03/15/23 02:00 69 25 H 134/61 98 03/15/23 01:00 69 29 H 132/62 98 03/15/23 00:00 70 29 H 134/63 95 03/15/23 00:00 134/63 03/14/23 23:00 72 30 H 132/60 95 03/14/23 22:40 72 29 H 131/60 96 03/14/23 22:00 73 29 H 131/57 L 97 03/14/23 21:30 72 28 H 124/55 L 100 03/15/23 00:00 50 03/15/23 00:00 72 03/14/23 23:39 Mechanical Vent Laboratory Results Laboratory Tests 03/15/23 03/15/23 04:06 04:06 WBC 68.39 H* Hgb 7.7 L Hct 23.5 L Plt Count 17 L* Sodium 130 L Potassium 4.1 Chloride 90 L Carbon Dioxide 27 BUN 78 H Creatinine 4.48 H Glucose 166 H Uric Acid 7.9 H Calcium 7.2 L Phosphorus 6.9 H Magnesium 2.0 PG Care Time/CCT Total # of Minutes Spent Total Time Spent with Patient: Total time spent is greater than 50% in coordination of care (as documented) at patient's floor/unit and/or counseling patient: Coding Level of Care Code 35877 SUB INP/OBS CARE 3/50MIN Diagnoses ANJUM (acute kidney injury) N17.9 Pneumonia J18.9 COVID-19 U07.1 CLL (chronic lymphocytic leukemia) C91.90
--- NOTE | 2023-03-15 09:35 | Critical Care Progress Note ---
Date of Service March 15, 2023 Assessment & Plan (1) Immunoglobulin deficiency, acquired: Plan: Reason Critically Ill: 67-year-old male with acute hypoxic respiratory failure in the setting of febrile neutropenia secondary to CLL PLAN: Neuro: Encephalopathy: Multifactorial Continue sedation and analgesia to facilitate mechanical ventilation Anxiety - discontinued Ativan secondary to sedation to facilitate mechanical ventilation Resp: Acute hypoxic respiratory failure: Minimal improvement, decreasing FiO2 saturation acceptable -Intubated 03/12 day 3 -CT scan reviewed which revealed dense left lower lobe pneumonia as well as multilobar pneumonia -Underwent bronchoscopy and specimen obtained 03/12 -Meropenem, azithromycin, vancomycin CV: Echo reviewed. Hypotension: Septic shock -On norepinephrine and vasopressin Fluids/Renal: Acute kidney failure on chronic kidney disease: 4.48 hopefully nadired -Nephrology notes reviewed - Present blood dyscrasias would make renal replacement therapy difficult - Received 2 doses of Lokelma and receiving a bicarbonate infusion -Potassium within normal limits, creatinine elevated to 4.48 Metabolic acidosis: Bicarbonate infusion: Improved discontinue bicarbonate infusion start Plasma-Lyte at 80 mils per hour hopefully to limit volume Hyponatremia and hypochloremia: Adjust maintenance fluids Elevated uric acid -Recheck tomorrow not meeting criteria for rasburicase at this time Mild hypocalcemia ID: Reviewed infectious disease notes -Meropenem 1 g IV every 8 hours: 03/11-ongoing -Voriconazole for CLL and risk of invasive aspergillosis: 03/11-ongoing -No fungal elements seen culture pending -Azithromycin day 9 -Vancomycin: Vanco 03/07, restarted 03/12- ongoing -Single blood culture positive for coag negative staph questionable contaminant repeat no growth to date -Antibiotic lock: Vancomycin to port COVID-19: Infection control to discuss with infectious disease regarding removal of airborne precautions, - to continue at this point Enterovirus infection Pelvic hematoma -Interval improvement on noncontrast CT scan GI/Nutrition: N.p.o. -Restart tube feeding and cautiously increase checking lactic acid every 8 hours, starting with 20 mL and slowly increased to goal -Patient is in need of nutritional support -Check triglycerides and LFTs in a.m. Hypoalbuminemia Protonix IV for prolonged mechanical ventilation Constipation -Holding on bowel regimen as we will be restarting tube feed formulation Heme: CLL -Transfusion triggers as per oncology hemoglobin less than 7.5 irradiated platelets for less than 10,000 -2 units transfused 03/08, 1 unit transfused 03/14 -G-CSF per oncology: Peripheral smear reviewed -Check uric acid in a.m. DVT prophylaxis: Chemoprophylaxis contraindicated in the setting of significant thrombocytopenia -Check coagulation studies in a.m. Endocrine: ICU hyperglycemia protocol Vascular access: Right internal jugular triple-lumen catheter placed 03/12 Code Status: Limited code: No chest compressions in event of cardiac arrest Disposition: ICU Discussed current status and prognosis with . Children were present to see patient/father. Started discussion about possibility of needing tracheostomy if were not able to extubate in 1 to 2 weeks. Still optimistic of continued improvement if that remains the case and we are dealing with failure to liberate would consider options including tracheostomy at that time. We will continue current level of care. (2) Acute hypoxic respiratory failure: (3) Neutropenic fever: (4) Enterovirus infection: Admission and Anticipated Discharge Date Admission Date: March 07, 2023 Supervising Physician Co-Signing Physician Notes I have personally spent 80 minutes of critical care time in the direct management of this patient. This is a life/limb threatening event. This includes time spent evaluating patient, direct bedside care, chart review, placing orders, interpretation of diagnostic studies, discussion with consultants, patient, and/or family members regarding treatment decisions, as well as other required patient management activities. This time is exclusive of all separately billable procedures, and teaching time and separate from and in addition to any other critical care service time. Subjective No overnight events, received 1 unit packed red blood cells yesterday Physical Exam Physical Exam: General: Sedated. nontoxic. Skin: Warm, dry, Head: Atraumatic Ears, nose, mouth and throat: airway obscured by endotracheal tube Cardiovascular: Normal peripheral perfusion Respiratory: Ventilator settings reviewed Gastrointestinal: Non distended Musculoskeletal: No deformity Results & Data Results & Data Vital Signs (Past 12 Hours) Vital Signs Temp Pulse Resp BP Pulse Ox O2 Del Method FiO2 03/15/23 08:00 Mechanical Vent 40 03/15/23 08:00 40 03/15/23 08:00 75 03/15/23 08:00 75 28 H 87 L 03/15/23 08:00 37.4 C 119/51 L 03/15/23 07:30 73 28 H 93 03/15/23 07:00 74 28 H 93 03/15/23 07:00 125/55 L 03/15/23 06:30 74 28 H 93 03/15/23 07:49 74 28 H 93 40 03/15/23 06:00 37.3 C 72 28 H 126/55 L 93 03/15/23 06:00 126/55 L 03/15/23 05:00 77 29 H 125/56 L 94 03/15/23 05:00 37.2 C 03/15/23 03:50 71 29 H 98 40 03/14/23 22:35 72 30 H 96 50 03/15/23 04:00 70 28 H 133/63 98 03/15/23 04:34 37.2 C 03/15/23 00:05 37.4 C 03/14/23 21:33 38 C H 03/15/23 04:00 40 03/15/23 03:00 69 25 H 132/62 97 03/15/23 02:00 69 25 H 134/61 98 03/15/23 01:00 69 29 H 132/62 98 03/15/23 00:00 70 29 H 134/63 95 03/15/23 00:00 134/63 03/14/23 23:00 72 30 H 132/60 95 03/14/23 22:40 72 29 H 131/60 96 03/14/23 22:00 73 29 H 131/57 L 97 03/14/23 21:30 72 28 H 124/55 L 100 03/15/23 00:00 50 03/15/23 00:00 72 03/14/23 23:39 Mechanical Vent Critical Care Results & Data Vital Signs (Past 12 Hours) Vital Signs Temp Pulse Resp BP Pulse Ox O2 Del Method FiO2 03/15/23 08:00 Mechanical Vent 40 03/15/23 08:00 40 03/15/23 08:00 75 03/15/23 08:00 75 28 H 87 L 03/15/23 08:00 37.4 C 119/51 L 03/15/23 07:30 73 28 H 93 03/15/23 07:00 74 28 H 93 03/15/23 07:00 125/55 L 03/15/23 06:30 74 28 H 93 03/15/23 07:49 74 28 H 93 40 03/15/23 06:00 37.3 C 72 28 H 126/55 L 93 03/15/23 06:00 126/55 L 03/15/23 05:00 77 29 H 125/56 L 94 03/15/23 05:00 37.2 C 03/15/23 03:50 71 29 H 98 40 03/14/23 22:35 72 30 H 96 50 03/15/23 04:00 70 28 H 133/63 98 03/15/23 04:34 37.2 C 03/15/23 00:05 37.4 C 03/15/23 04:00 40 03/15/23 03:00 69 25 H 132/62 97 03/15/23 02:00 69 25 H 134/61 98 03/15/23 01:00 69 29 H 132/62 98 03/15/23 00:00 70 29 H 134/63 95 03/15/23 00:00 134/63 03/14/23 23:00 72 30 H 132/60 95 03/14/23 22:40 72 29 H 131/60 96 03/14/23 22:00 73 29 H 131/57 L 97 03/15/23 00:00 50 03/15/23 00:00 72 03/14/23 23:39 Mechanical Vent Lab & Micro Results (Past 24 Hours) RBC 2.52 M/uL (4.70-6.10) L 03/15/23 WBC 68.39 K/ul (4.8-10.8) H* 03/15/23 Hgb 7.7 g/dl (14.0-18.0) L 03/15/23 Hct 23.5 % (42.0-52.0) L 03/15/23 MCV 93.3 fL (80.0-100.0) 03/15/23 MCH 30.6 pg (25.0-34.0) 03/15/23 MCHC 32.8 g/dL (32.0-36.0) 03/15/23 RDW Standard Deviation 78.0 fL (36.4-46.3) H 03/15/23 RDW Coefficient of Variation 23.7 % (11.5-14.5) H 03/15/23 Plt Count 17 K/uL (130-400) L* 03/15/23 Neutrophils (%) (Auto) 1.1 % 03/15/23 Lymphocytes (%) (Auto) 89.8 % 03/15/23 Monocytes # (Auto) 6.07 K/uL (0.11-0.59) H 03/15/23 Eosinophils # (Auto) 0.05 K/uL (0.00-0.50) 03/15/23 Immature Granulocyte % (Auto) 0.1 % 03/15/23 Neutrophils # (Auto) 0.82 K/uL (1.40-6.50) L* 03/15/23 Lymphocytes # (Auto) 61.39 K/uL (1.20-3.40) H 03/15/23 Monocytes # (Auto) 6.07 K/uL (0.11-0.59) H 03/15/23 Eosinophils # (Auto) 0.05 K/uL (0.00-0.50) 03/15/23 Basophils # (Auto) 0.01 K/uL (0.00-0.20) 03/15/23 Immature Granulocyte # (Auto) 0.05 K/uL (0.01-0.20) 3 Na 130 mmol/L (136-145) L 03/15/23 K 4.1 mmol/L (3.5-5.1) 03/15/23 Cl 90 mmol/L (98-107) L 03/15/23 CO2 27 mmol/L (21-32) 03/15/23 Anion Gap 13 (3-11) H 03/15/23 BUN 78 mg/dl (6-23) H 03/15/23 Creatinine 4.48 mg/dl (0.6-1.4) H 03/15/23 Estimated GFR ( Amer) 14.8 ml/min 03/15/23 Estimated GFR (Non-Af Amer) 12.7 ml/min 03/15/23 BUN/Creatinine Ratio 17.4 (10-20) 03/15/23 Glu 166 mg/dl (70-99(Fasting)) H 03/15/23 Ca 7.2 mg/dl (8.6-10.3) L 03/15/23 Phosphorus Level 6.9 mg/dl (2.5-4.9) H 03/15/23 Mg 2.0 mg/dl (1.7-2.4) 03/15/23 04:06 Calcium Level 7.2 mg/dl (8.6-10.3) L 03/15/23 04:06 Microbiology 03/10/23 22:30 Aerobic Blood Culture - Preliminary Blood Coag neg staph not lugdunensis Anaerobic Blood Culture - Preliminary No growth in Anaerobic bottle after 48 hours. 03/12/23 19:13 Aerobic Blood Culture - Preliminary Blood No growth in Aerobic bottle after 48 hours. Anaerobic Blood Culture - Preliminary No growth in Anaerobic bottle after 48 hours. 03/12/23 19:13 Aerobic Blood Culture - Preliminary Blood Coag neg staph not lugdunensis Anaerobic Blood Culture - Preliminary No growth in Anaerobic bottle after 48 hours. 03/13/23 19:37 Aerobic Blood Culture - Preliminary Blood No growth in Aerobic bottle after 24 hours. Anaerobic Blood Culture - Preliminary No growth in Anaerobic bottle after 24 hours. 03/13/23 19:37 Anaerobic Blood Culture - Preliminary Blood No growth in Anaerobic bottle after 24 hours. 03/12/23 Unknown Gram Stain - Final Bronch Wash,Left Lower Lobe Bronchial Culture - Final No growth 03/12/23 Unknown Acid Fast Bacilli Smear - Final Bronch Wash,Left Lower Lobe 03/12/23 06:52 Aerobic Blood Culture - Preliminary Blood No growth in Aerobic bottle after 48 hours. Anaerobic Blood Culture - Preliminary No growth in Anaerobic bottle after 48 hours. 03/12/23 06:51 Aerobic Blood Culture - Preliminary Blood No growth in Aerobic bottle after 48 hours. Anaerobic Blood Culture - Preliminary No growth in Anaerobic bottle after 48 hours. I & O Totals 24 Hours 03/14/23 03/15/23 03/16/23 06:59 06:59 06:59 Intake Total 5420.670 / 5420.670 5404.946 / 5408.963 1527.597 / 1527.597 Output Total 370 / 370 765 / 765 40 / 40 Balance 5050.670 / 5050.670 4639.946 / 4643.963 1487.597 / 1487.597 Cumulative 03/07/23 16:41 thru 03/15/23 09:15 Intake Total 63423.326 Output Total 14202 Balance 5556.326 RT Ventilator Mngmt (Last Documented) Ventilator Ordered Settings Ventilator Support Mode Assist Control 03/15/23 08:00 Respiratory Rate 28 03/15/23 08:00 Ventilator Tidal Volume 450 03/15/23 08:00 Setting Minute Ventilation 12.6 03/15/23 07:49 Positive End Expiratory 15 03/15/23 08:00 Pressure Fraction of Inspired Oxygen 40 03/15/23 08:00 Machine Comment pt weaned to 40% 03/15/23 03:50 Ventilator - PT Measurements Respiratory Rate 28 Exhaled Tidal Volume 451 Minute Ventilation 12.6 Peak Inspiratory Airway 30 Pressure Plateau Pressure 26 Respiratory Cycle Inspiratory: 1:1.9 Expiratory Ratio Inspiratory Phase Time 0.75 End-Tidal CO2 29 Static Lung Compliance 41.00 Dynamic Lung Compliance 30.07 Normal Static Lung Compliance 47.00 Patient Measurements Comment changed I time to 0.75 Coding Level of Care Code 22405 CRITICAL CARE 1ST 30-74M Additional Critical Care Time Additional 30min Critical Care Time: Yes - 45303 Diagnoses Immunoglobulin deficiency, acquired D80.9 Acute hypoxic respiratory failure J96.01 Neutropenic fever D70.9; R50.81 Enterovirus infection B34.1 Additional Codes Critical Care Time - Additional 30min Critical Care Time: Yes - 77098 ([id number])
[2023-03-15] MEDS: PLASMA-LYTE A 1,000 ML IV SCH ×2 (10:28→22:31)
[2023-03-15] MEDS: PANTOprazole 40 MG in SYRINGE 0 ML IV SCH (11:07)
[2023-03-15] MEDS ORDERED: FUROSEMIDE 40 MG/4 ML VIAL IV ONE (11:09)
[2023-03-15] MEDS ORDERED: VANCOMYCIN HCL 750 MG in SODIUM CHLORIDE 0.9% 250 ML IV ONE (12:00)
[2023-03-15] MEDS: fentaNYL citrate 2,500 MCG/250 ML BAG IV SCH (12:05)
[2023-03-15] MEDS: PEPTAMEN INTENSE VHP 1.0 CAL 1,000 ML BAG OG SCH (12:32)
[2023-03-15] MEDS: ACETAMINOPHEN 1,000 MG/100 ML VIAL IV PRN (15:15)
--- NOTE | 2023-03-15 16:26 | Pharmacy Report ---
Pharmacy PK ABX Note - Date of Service March 15, 2023 - Assessment and Plan Laboratory Tests 03/10/23 03/11/23 03/12/23 03:53 12:25 06:51 Creatinine 1.82 H 2.11 H 2.72 H D Assessment 03/15: Random level 19.8 this morning, redose with 750 mg x 1. Repeat level in AM 03/14: Random level this morning 21, SCr continues to increase. Will redose with 500 mg x 1 to target peak of 30, with random level in AM 03/13: Patient's scr continue to rise but was still making some urine. Given this and after assessment of today's random level of 16.3, will plan to redose one today and recheck a random level in the morning to further guide supplem ental doses. Patient also started in abx lock therapy today. 03/12 67 year old M receiving meropenem, voriconazole, and azithromycin for treatment of pneumonia. Now adding Vancomycin back (had received 03/07-03/08), for 1/ blood cultures positive for Staph Epi and persistent fevers with port in place. Repeat blood cultures today. History of CLL, febrile/neutropenic. MRSA nasal (-). CKD. Will give loading dose and check random level in morning, SCr elevated significantly today. Plan Vancomycin * Redose: 750 mg IV x 1 @1200 today * Random level with AM labs Pharmacy will continue to follow and will adjust dose/frequency as necessary. Thank you.
[2023-03-15] MEDS ORDERED: PROPOFOL IV EMULSION 10 MG/ML 100 ML VIAL IV ONE (19:32)
[2023-03-15] MEDS ORDERED: STAT IV Infusion **Titration per Protocol STA (20:08)
[2023-03-15] MEDS ORDERED: PROPOFOL BOLUS FROM BAG IV PRN (20:08)
[2023-03-16] MEDS: NOREPINEPHRINE/D5W 4 MG/250 ML PLCT IV SCH ×4 (00:19→11:12)
[2023-03-16] MEDS: propofoL 1,000 MG/100 ML VIAL IV SCH ×3 (00:19→10:58)
[2023-03-16] MEDS: VORICONAZOLE 350 MG in 0.9 % SODIUM CHLORIDE 65 ML IV SCH ×2 (01:19→13:12)
[2023-03-16] MEDS: MEROPENEM 500 MG in SYRINGE 0 ML IV SCH (01:24)
[2023-03-16] MEDS: INSULIN REGULAR 250 UNITS in SODIUM CHLORIDE 0.9% 247.5 ML IV SCH (02:23)
[2023-03-16] MEDS: INSULIN ASPART PER UNIT CHARGE SC SCH ×3 (03:28→11:37)
[2023-03-16 05:24] LABS: Fibrinogen 784 mg/dl (184-400); INR 1.1 (0.9-1.1); Partial Thromboplastin Ratio 1.4; Partial Thromboplastin Time 38.2 Seconds (21.0-31.0); Prothrombin Time 11.8 Seconds (9.0-12.0)
[2023-03-16 05:25] LABS: Hematocrit (blood only) 23.3 % (42.0-52.0); Hemoglobin 7.7 g/dl (14.0-18.0); Mean Corpuscular Hemoglobin 30.9 pg (25.0-34.0); Mean Corpuscular Volume 93.6 fL (80.0-100.0); RBC Morphology Unremarkable; RDW Coefficient of Variation 23.1 % (11.5-14.5); RDW Standard Deviation 77.8 fL (36.4-46.3); Red Blood Count 2.49 M/uL (4.70-6.10)
[2023-03-16 05:26] LABS: Albumin Level 2.5 gm/dl (3.4-5.0); BUN Creatinine Ratio 16.3 (10-20); Bilirubin Direct 0.4 mg/dl (0-0.2); Bilirubin,Total 0.9 mg/dl (0.2-1.0); Calcium 7.2 mg/dl (8.6-10.3); Creatinine Clr Calc Pharmacy 19.7 ml/min; Est GFR (African American) 13.6 ml/min; Est GFR (Non-African American) 11.7 ml/min; Phosphorus 7.9 mg/dl (2.5-4.9); Potassium 4.4 mmol/L (3.5-5.1); Total Protein 5.5 gm/dl (6.0-8.3); Uric Acid 8.1 mg/dl (2.6-7.2)
[2023-03-16 05:28] LABS: Basophils # (auto) 0.01 K/uL (0.00-0.20); Eosinophils # (auto) 0.05 K/uL (0.00-0.50); Eosinophils % (auto) 0.1 %; Immature Granulocytes # (auto) 0.02 K/uL (0.01-0.20); Lymphocytes # (auto) 73.99 K/uL (1.20-3.40); Lymphocytes % (auto) 90.7 %; Monocytes # (auto) 6.71 K/uL (0.11-0.59); Monocytes % (auto) 8.2 %; Platelet Count 16 K/uL (130-400); White Blood Count 81.58 K/ul (4.8-10.8)
[2023-03-16] MEDS: fentaNYL citrate 2,500 MCG/250 ML BAG IV SCH (06:30)
--- NOTE | 2023-03-16 07:32 | Critical Care Progress Note ---
Date of Service March 16, 2023 Assessment & Plan (1) Immunoglobulin deficiency, acquired: Plan: Reason Critically Ill: 67-year-old male with acute hypoxic respiratory failure in the setting of febrile neutropenia secondary to CLL PLAN: Neuro: Encephalopathy: Multifactorial Continue sedation and analgesia to facilitate mechanical ventilation Anxiety - discontinued Ativan secondary to sedation to facilitate mechanical ventilation Resp: Acute hypoxic respiratory failure: Minimal improvement, decreasing FiO2 saturation acceptable -Intubated 03/12 day 3 -CT scan reviewed which revealed dense left lower lobe pneumonia as well as multilobar pneumonia -Underwent bronchoscopy and specimen obtained 03/12 -Meropenem, azithromycin, vancomycin CV: Echo reviewed. Hypotension: Septic shock -On norepinephrine currently increasing Fluids/Renal: Acute kidney failure on chronic kidney disease: Continuing to worsen 4.79, no response to diuretics yesterday -Nephrology notes reviewed - Present blood dyscrasias would make renal replacement therapy difficult - Received 2 doses of Lokelma Metabolic acidosis: Bicarbonate infusion discontinued yesterday and transitioned to Plasma-Lyte, anion gap mildly worse today Hyponatremia and hypochloremia: Worsening Elevated uric acid Mild hypocalcemia ID: Reviewed infectious disease notes -Meropenem 1 g IV every 8 hours: 03/11-ongoing -Voriconazole for CLL and risk of invasive aspergillosis: 03/11-ongoing -No fungal elements seen culture pending -Azithromycin day 9: Completed -Vancomycin: Vanco 03/07, restarted 03/12- ongoing -Single blood culture positive for coag negative staph questionable contaminant repeat no growth to date -Antibiotic lock: Vancomycin to port COVID-19: Infection control to discuss with infectious disease regarding removal of airborne precautions, - to continue at this point Enterovirus infection Pelvic hematoma -Interval improvement on noncontrast CT scan GI/Nutrition: N.p.o. -Discontinuing tube feeding secondary to increased vasoactive requirement -hypertriglyceridemia mild: Okay to continue propofol Hypoalbuminemia Protonix IV for prolonged mechanical ventilation Constipation Heme: CLL -Transfusion triggers as per oncology hemoglobin less than 7.5 irradiated platelets for less than 10,000 -2 units transfused 03/08, 1 unit transfused 03/14 -G-CSF per oncology: Peripheral smear reviewed -Check uric acid in a.m. DVT prophylaxis: Chemoprophylaxis contraindicated in the setting of significant thrombocytopenia Endocrine: ICU hyperglycemia protocol Vascular access: Right internal jugular triple-lumen catheter placed 03/12 Code Status: Limited code: No chest compressions in event of cardiac arrest Disposition: ICU Discussed with oncology and nephrology. All in agreement that transition to comfort is reasonable and appropriate. Do believe the patient is an end-stage terminal condition without meaningful chance of recovery. Likely transition to full comfort first discontinuation of vasoactive medications and then possible transition to terminal extubation. Patient's contacting additional family members and we will coordinate appropriately. (2) Acute hypoxic respiratory failure: (3) Neutropenic fever: (4) Enterovirus infection: Admission and Anticipated Discharge Date Admission Date: March 07, 2023 Supervising Physician Co-Signing Physician Notes I have personally spent 65 minutes of critical care time in the direct management of this patient. This is a life/limb threatening event. This includes time spent evaluating patient, direct bedside care, chart review, michelle cing orders, interpretation of diagnostic studies, discussion with consultants, patient, and/or family members regarding treatment decisions, as well as other required patient management activities. This time is exclusive of all separately billable procedures, and teaching time and separate from and in addition to any other critical care service time. Subjective Decreased urine output overnight. Otherwise no significant overnight events. Discussed extensively with today. Patient's vasoactive requirements have increased recently, minimal intervention appears to cause decompensation. Feels that patient's established a persistent decline and current treatments are onerous and not in line with patient's long-term wishes. Discussing transition to comfort, she has emotional support available and will be contacting additional family members Physical Exam Physical Exam: General: Sedated. nontoxic. Skin: Warm, dry, Head: Atraumatic Ears, nose, mouth and throat: airway obscured by endotracheal tube Cardiovascular: Normal peripheral perfusion Respiratory: Ventilator settings reviewed Gastrointestinal: Non distended Musculoskeletal: No deformity Results & Data Results & Data Vital Signs (Past 12 Hours) Vital Signs Temp Pulse Resp BP Pulse Ox O2 Del Method FiO2 03/16/23 06:00 36.4 C L 75 24 141/60 H 94 03/16/23 05:00 36.5 C 76 24 139/60 93 03/16/23 04:02 37.5 C 83 20 85 L 03/16/23 04:02 120/60 03/16/23 04:00 37.5 C 83 0 L 115/64 96 03/16/23 04:00 55 03/16/23 04:14 78 24 91 60 03/16/23 03:00 36.8 C 74 30 H 92 03/16/23 03:00 132/59 L 03/16/23 02:00 37.4 C 73 29 H 135/60 91 03/16/23 01:00 37.3 C 72 25 H 139/64 93 03/16/23 00:00 37.2 C 70 32 H 133/67 92 03/15/23 23:00 37.1 C 69 28 H 134/65 91 03/15/23 22:00 36.9 C 69 28 H 134/67 94 03/15/23 21:00 36.9 C 68 28 H 139/67 94 03/16/23 00:05 40 03/16/23 00:05 70 03/15/23 22:44 91 H 28 H 69 L 40 03/15/23 20:46 Mechanical Vent 50 03/15/23 20:00 36.8 C 68 28 H 137/68 93 50 03/15/23 20:00 50 03/15/23 19:47 68 29 H 93 50 Critical Care Results & Data Vital Signs (Past 12 Hours) Vital Signs Temp Pulse Resp BP Pulse Ox O2 Del Method FiO2 03/16/23 06:00 36.4 C L 75 24 141/60 H 94 03/16/23 05:00 36.5 C 76 24 139/60 93 03/16/23 04:02 37.5 C 83 20 85 L 03/16/23 04:02 120/60 03/16/23 04:00 37.5 C 83 0 L 115/64 96 03/16/23 04:00 55 03/16/23 04:14 78 24 91 60 03/16/23 03:00 36.8 C 74 30 H 92 03/16/23 03:00 132/59 L 03/16/23 02:00 37.4 C 73 29 H 135/60 91 03/16/23 01:00 37.3 C 72 25 H 139/64 93 03/16/23 00:00 37.2 C 70 32 H 133/67 92 03/15/23 23:00 37.1 C 69 28 H 134/65 91 03/15/23 22:00 36.9 C 69 28 H 134/67 94 03/15/23 21:00 36.9 C 68 28 H 139/67 94 03/16/23 00:05 40 03/16/23 00:05 70 03/15/23 22:44 91 H 28 H 69 L 40 03/15/23 20:46 Mechanical Vent 50 03/15/23 20:00 36.8 C 68 28 H 137/68 93 50 03/15/23 20:00 50 03/15/23 19:47 68 29 H 93 50 Lab & Micro Results (Past 24 Hours) RBC 2.49 M/uL (4.70-6.10) L 03/16/23 WBC 81.58 K/ul (4.8-10.8) H* 03/16/23 Hgb 7.7 g/dl (14.0-18.0) L 03/16/23 Hct 23.3 % (42.0-52.0) L 03/16/23 MCV 93.6 fL (80.0-100.0) 03/16/23 MCH 30.9 pg (25.0-34.0) 03/16/23 MCHC 33.0 g/dL (32.0-36.0) 03/16/23 RDW Standard Deviation 77.8 fL (36.4-46.3) H 03/16/23 RDW Coefficient of Variation 23.1 % (11.5-14.5) H 03/16/23 Plt Count 16 K/uL (130-400) L* 03/16/23 Neutrophils (%) (Auto) 1.0 % 03/16/23 Lymphocytes (%) (Auto) 90.7 % 03/16/23 Monocytes # (Auto) 6.71 K/uL (0.11-0.59) H 03/16/23 Eosinophils # (Auto) 0.05 K/uL (0.00-0.50) 03/16/23 Immature Granulocyte % (Auto) 0.0 % 03/16/23 Neutrophils # (Auto) 0.80 K/uL (1.40-6.50) L* 03/16/23 Lymphocytes # (Auto) 73.99 K/uL (1.20-3.40) H 03/16/23 Monocytes # (Auto) 6.71 K/uL (0.11-0.59) H 03/16/23 Eosinophils # (Auto) 0.05 K/uL (0.00-0.50) 03/16/23 Basophils # (Auto) 0.01 K/uL (0.00-0.20) 03/16/23 Immature Granulocyte # (Auto) 0.02 K/uL (0.01-0.20) 3 Red Blood Cell Morphology Unremarkable 03/16/23 Na 128 mmol/L (136-145) L 03/16/23 K 4.4 mmol/L (3.5-5.1) 03/16/23 Cl 88 mmol/L (98-107) L 03/16/23 CO2 26 mmol/L (21-32) 03/16/23 Anion Gap 14 (3-11) H 03/16/23 BUN 78 mg/dl (6-23) H 03/16/23 Creatinine 4.79 mg/dl (0.6-1.4) H* 03/16/23 Estimated GFR ( Amer) 13.6 ml/min 03/16/23 Estimated GFR (Non-Af Amer) 11.7 ml/min 03/16/23 BUN/Creatinine Ratio 16.3 (10-20) 03/16/23 Glu 121 mg/dl (70-99(Fasting)) H 03/16/23 Ca 7.2 mg/dl (8.6-10.3) L 03/16/23 Phosphorus Level 7.9 mg/dl (2.5-4.9) H 03/16/23 Total Bilirubin 0.9 mg/dl (0.2-1.0) 03/16/23 Direct Bilirubin 0.4 mg/dl (0-0.2) H 03/16/23 AST 16 U/L (13-39) 03/16/23 ALT 5 U/L (7-52) L 03/16/23 Alkaline Phosphatase 92 U/L (34-104) 03/16/23 TP 5.5 gm/dl (6.0-8.3) L 03/16/23 Albumin 2.5 gm/dl (3.4-5.0) L 03/16/23 Mg 2.0 mg/dl (1.7-2.4) 03/16/23 04:13 Calcium Level 7.2 mg/dl (8.6-10.3) L 03/16/23 04:13 Ionized Calcium 0.87 mmol/L (1.12-1.32) L 03/16/23 04:13 Prothromb Time International Ratio 1.1 (0.9-1.1) 03/16/23 04:1 3 Microbiology 03/10/23 22:30 Aerobic Blood Culture - Preliminary Blood Coag neg staph not lugdunensis Anaerobic Blood Culture - Final No growth in Anaerobic bottle after 5 days. 03/14/23 17:33 Aerobic Blood Culture - Preliminary Blood No growth in Aerobic bottle after 24 hours. Anaerobic Blood Culture - Final 03/13/23 19:37 Aerobic Blood Culture - Preliminary Blood No growth in Aerobic bottle after 48 hours. Anaerobic Blood Culture - Preliminary No growth in Anaerobic bottle after 48 hours. 03/13/23 19:37 Anaerobic Blood Culture - Preliminary Blood No growth in Anaerobic bottle after 48 hours. 03/14/23 17:11 Aerobic Blood Culture - Preliminary Blood No growth in Aerobic bottle after 24 hours. Anaerobic Blood Culture - Preliminary No growth in Anaerobic bottle after 24 hours. 03/10/23 13:08 Aerobic Blood Culture - Final Blood No growth in Aerobic bottle after 5 days. Anaerobic Blood Culture - Final 03/12/23 19:13 Aerobic Blood Culture - Preliminary Blood Coag neg staph not lugdunensis Anaerobic Blood Culture - Preliminary No growth in Anaerobic bottle after 48 hours. I & O Totals 24 Hours 03/15/23 03/16/23 03/17/23 06:59 06:59 06:59 Intake Total 5404.946 / 5408.963 5029.380 / 5029.380 228.975 / 228.975 Output Total 765 / 765 349 / 349 Balance 4639.946 / 4643.963 4680.380 / 4680.380 228.975 / 228.975 Cumulative 03/07/23 16:41 thru 03/16/23 07:12 Intake Total 33954.084 Output Total 01413 Balance 8978.084 RT Ventilator Mngmt (Last Documented) Ventilator Ordered Settings Ventilator Support Mode Assist Control 03/16/23 04:14 Respiratory Rate 24 03/16/23 06:00 Ventilator Tidal Volume 450 03/16/23 04:14 Setting Minute Ventilation 9.9 03/16/23 04:14 Positive End Expiratory 14 03/16/23 04:14 Pressure Fraction of Inspired Oxygen 60 03/16/23 0 4:14 Machine Comment pt weaned to 40% 03/15/23 03:50 Ventilator - PT Measurements Respiratory Rate 24 Exhaled Tidal Volume 450 Minute Ventilation 9.9 Peak Inspiratory Airway 29 Pressure Plateau Pressure 24.6 Respiratory Cycle Inspiratory: 1:2.0 Expiratory Ratio Inspiratory Phase Time 0.9 End-Tidal CO2 34 Static Lung Compliance 42.55 Dynamic Lung Compliance 30.00 Normal Static Lung Compliance 47.00 Patient Measurements Comment suction not indicated at this time, pt desats with sx, will recheck next rounds Coding Level of Care Code 84532 CRITICAL CARE 1ST 30-74M Diagnoses Immunoglobulin deficiency, acquired D80.9 Acute hypoxic respiratory failure J96.01 Neutropenic fever D70.9; R50.81 Enterovirus infection B34.1
--- NOTE | 2023-03-16 07:56 | Hospitalist Progress Note ---
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 Would consider rechecking IgG at the beginning of the week of March 24 and possibly infusion additional supplemental immunoglobulin if it remains low. (2) Neutropenic fever: Plan: Appreciate critical care and infectious disease close attention and broad approach. There is nothing more from the hematology perspective to offer aside from: >> Recheck immunoglobulin levels next week and supplement additionally if needed >> Would complete 5 days of GCSF tomorrow and then could suspend thereafter as it is not clear that he can respond more completely than he has since far. Historically it was difficult to get his neutrophil counts much above the 700 level and they are currently above 800. (3) CLL (chronic lymphocytic leukemia): Plan: Specific treatment of the CLL is not practical until (or even if) he is stabilized from an infectious and cardiopulmonary perspective. Current rise in WBC is probably in good part a consequence of the intense inflammatory cytokine involvement. From peripheral smear review, however, the predominant cell is a "mature" CLL cell. In general, even with very high (100s of thousands) WBCs in CLL we do not see issues of leukostasisthere is no need for cytopheresis or acute cytotoxic therapy just to reduce those numbers. For now would simply cont inue with the transfusion parameters set previously, may want to consider empiric folic acid supplementation and optimizing parenteral nutrition for what looks like a potential prolonged illness ahead. Plan Technical recommendations as above At a broader level, his disease is very challenging and overall prognosis is poor even in advance of these issues. I did speak with his last week and I think that she well understands that there may be limits to what we can accomplish short and long-term with his disease. They initially were hopeful that he could get well enough to try a new treatment paradigm proposed by the group in [place] but as above that is not practical unless we can secure a significant physiologic improvement and that is unfortunately in some doubt. 1 am on vacation this week but will continue to be available through [employer] and will check electronically from time to time. If my participation in conversations would be helpful I am more than happy to do so being the one who knows him the best here locally. I would suggest that a formal palliative care consultation conversation with his may be a helpful adjunct in helping to reach decisions of parameters of care ongoing especially if he is not showing fundamental improvement in the near future. Dr. Tarango would be available if a [id number] discussion is required. I return on March 25. Admission and Anticipated Discharge Date Admission Date: March 07, 2023 Subjective Patient remains critically ill on the ventilator Physical Exam Physical Exam: Only low grade temps last over the weekend so far Results & Data Results & Data Vital Signs (Past 12 Hours) Vital Signs Temp Pulse Resp BP Pulse Ox O2 Del Method FiO2 03/16/23 07:38 75 24 92 55 03/16/23 06:00 36.4 C L 75 24 141/60 H 94 03/16/23 05:00 36.5 C 76 24 139/60 93 03/16/23 04:02 37.5 C 83 20 85 L 03/16/23 04:02 120/60 03/16/23 04:00 37.5 C 83 0 L 115/64 96 03/16/23 04:00 55 03/16/23 04:14 78 24 91 60 03/16/23 03:00 36.8 C 74 30 H 92 03/16/23 03:00 132/59 L 03/16/23 02:00 37.4 C 73 29 H 135/60 91 03/16/23 01:00 37.3 C 72 25 H 139/64 93 03/16/23 00:00 37.2 C 70 32 H 133/67 92 03/15/23 23:00 37.1 C 69 28 H 134/65 91 03/15/23 22:00 36.9 C 69 28 H 134/67 94 03/15/23 21:00 36.9 C 68 28 H 139/67 94 03/16/23 00:05 40 03/16/23 00:05 70 03/15/23 22:44 91 H 28 H 69 L 40 03/15/23 20:46 Mechanical Vent 50 03/15/23 20:00 36.8 C 68 28 H 137/68 93 50 03/15/23 20:00 50 PG Care Time/CCT Total # of Minutes Spent Total Time Spent with Patient: Total time spent is greater than 50% in coordination of care (as documented) at patient's floor/unit and/or counseling patient: Coding Level of Care Code 65411 SUB INP/OBS CARE 1/25MIN Diagnoses Immunoglobulin deficiency, acquired D80.9 Neutropenic fever D70.9; R50.81 CLL (chronic lymphocytic leukemia) C91.90
--- NOTE | 2023-03-16 09:11 | Nephrology Progress Note ---
Date of Service March 16, 2023 Assessment & Plan (1) ANJUM (acute kidney injury): Plan: * Net 9 L vol + since admission. Poor response to 80 mg IV Lasix yesterday. Patient now requires MIV and increasing pressor support. 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 Recommend continue w/ supportive care. * Hold diuretics today because patient requires maintenance IVF and increased dose of pressor therapy * HD will be challenging due to hemodynamic instability and need for maintenance IVF and pressor support (2) Pneumonia: Plan: * Multifocal pneumonia * On Azithromycin, Vancomycin, Meropenem, Vorconazole (3) COVID-19: Plan: * COVID and enterovirus + on admission (4) CLL (chronic lymphocytic leukemia): Plan: * Immunoglobulin deficient due to CLL therapy. Received IVIG last week * Profound leukocytosis due to GCSF * Progressive anemia, thrombocytopenia * 03/16/23 Oncology note: Prognosis is poor. Recommend formal palliative care consultation Admission and Anticipated Discharge Date Admission Date: March 07, 2023 Subjective Mr. Gray was evaluated in the ICU this morning. He remains sedated, mechanically ventilated, on pressor support. staff occupational therapist reports tube feeding resumed yesterday but has been held due to high residuals and absence of bowel sounds. Levophed dose has risen from 0.09 mcg/kg/min to 0.18 mcg/kg/min to maintain MAP 65. Plasmalyte infusion at 80 cc/hr started for BP support as well. FiO2 requirements have risen from 40 to 55%. Review of Systems Review of Systems: Unobtainable due to endotracheal tube Physical Exam Eyes: PERRL, conjunctivae normal, anicteric sclerae ENMT: orotracheal intubation Neck: trachea midline, no thyromegaly Respiratory: coarse BS bilaterally Cardiovascular: Rate/Rhythm: regular rate and regular rhythm Gastrointestinal (Abdomen): Inspection/Auscultation: + hypoactive bowel sounds Skin: 3+ dependent edema, 1+ pretibial pitting edema Neurologic: sedated Results & Data Vital Signs (Past 12 Hours) Vital Signs Temp Pulse Resp BP Pulse Ox FiO2 03/16/23 08:30 37.5 C 75 24 93 03/16/23 08:00 37.6 C H 75 24 92 03/16/23 08:00 134/55 L 03/16/23 07:30 37.6 C H 75 24 92 03/16/23 07:00 37.6 C H 75 24 92 03/16/23 07:00 134/57 L 03/16/23 06:30 37.7 C H 75 24 90 03/16/23 08:00 55 03/16/23 08:00 75 03/16/23 08:00 75 03/16/23 07:38 75 24 92 55 03/16/23 06:00 36.4 C L 75 24 141/60 H 94 03/16/23 05:00 36.5 C 76 24 139/60 93 03/16/23 04:02 37.5 C 83 20 85 L 03/16/23 04:02 120/60 03/16/23 04:00 37.5 C 83 0 L 115/64 96 03/16/23 04:00 55 03/16/23 04:14 78 24 91 60 03/16/23 03:00 36.8 C 74 30 H 92 03/16/23 03:00 132/59 L 03/16/23 02:00 37.4 C 73 29 H 135/60 91 03/16/23 01:00 37.3 C 72 25 H 139/64 93 03/16/23 00:00 37.2 C 70 32 H 133/67 92 03/15/23 23:00 37.1 C 69 28 H 134/65 91 03/15/23 22:00 36.9 C 69 28 H 134/67 94 03/16/23 00:05 40 03/16/23 00:05 70 03/15/23 22:44 91 H 28 H 69 L 40 Laboratory Results Laboratory Tests 03/16/23 03/16/23 03/16/23 04:13 04:13 04:13 WBC 81.58 H* Hgb 7.7 L Hct 23.3 L Plt Count 16 L* INR 1.1 Sodium 128 L Potassium 4.4 Chloride 88 L Carbon Dioxide 26 BUN 78 H Creatinine 4.79 H* D Glucose 121 H Uric Acid 8.1 H Calcium 7.2 L Albumin 2.5 L PG Care Time/CCT Total # of Minutes Spent Total Time Spent with Patient: Total time spent is greater than 50% in coordination of care (as documented) at patient's floor/unit and/or counseling patient: Coding Level of Care Code 91873 SUB INP/OBS CARE MIN Diagnoses ANJUM (acute kidney injury) N17.9 Pneumonia J18.9 COVID-19 U07.1 CLL (chronic lymphocytic leukemia) C91.90
[2023-03-16] MEDS: PLASMA-LYTE A 1,000 ML IV SCH (10:58)
[2023-03-16] MEDS: PANTOprazole 40 MG in SYRINGE 0 ML IV SCH (11:13)
[2023-03-16] MEDS ORDERED: MAX Conc; 32mg in 250mL IV SCH (11:30)
--- NOTE | 2023-03-16 11:43 | Pharmacy Report ---
Pharmacy PK ABX Note - Date of Service March 16, 2023 - Assessment and Plan Laboratory Tests 03/10/23 03/11/23 03/12/23 03:53 12:25 06:51 Creatinine 1.82 H 2.11 H 2.72 H D Assessment 03/16: SCr up to 4.79 today, still has some urine output. Random level 21.2 this AM, will hold off on redosing today, random level in AM 03/15: Random level 19.8 this morning, redose with 750 mg x 1. Repeat level in AM 03/14: Random level this morning 21, SCr continues to increase. Will redose with 500 mg x 1 to target peak of 30, with random level in AM 03/13: Patient's scr continue to rise but was still making some urine. Given this and after assessment of today's random level of 16.3, will plan to redose one today and recheck a random level in the morning to further guide supplemental doses. Patient also started in abx lock therapy today. 03/12 67 year old M receiving meropenem, voriconazole, and azithromycin for treatment of pneumonia. Now adding Vancomycin back (had received 03/07-03/08), for 1/4 blood cultures positive for Staph Epi and persistent fevers with port in place. Repeat blood cultures today. History of CLL, febrile/neutropenic. MRSA nasal (-). CKD. Will give loading dose and check random level in morning, SCr elevated significantly today. Plan Vancomycin * Random level with AM labs Pharmacy will continue to follow and will adjust dose/frequency as necessary. Thank you.
--- NOTE | 2023-03-16 12:40 | Hospitalist Progress Note ---
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 On vancomycin. started 03/07 Blood culture 1 out of 4 bottles growing staph. Likely contaminant. Repeat blood cultures ordered by ID. - on Azithromycin started 03/08 -On Voriconazole started 03/11 - follow up on fungal culture, Legionella, BD glucan CT chest 03/12 shows extensive multifocal consolidation. 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 concern for pelvic/retroperitoneal bleed, did receive blood product support (3) ANJUM (acute kidney injury): Plan: on CKD stage III Per director of catering, declined transfer to a tertiary care center for continuous dialysis At risk for tumor lysis syndrome rasburicase may be offered for uric acid greater than 12. (4) COVID-19: Plan: Patient diagnosed with Covid on 02/20/23. He was treated with Paxlovid. -Maintain isolation precautions for now - patient immunocompromised with underlying malignancy - prolonged isolation (5) Acute diastolic CHF (congestive heart failure): Plan: patient appeared to be volume overloaded -Patient with minimal elevation of troponin. 28.5 --> 31.3. No acute ischemic changes on EKG.suspect demand ischemia - echo showed no wall motion abnormalities or depressed EF Pressor support to maintain blood pressure (6) T2DM (type 2 diabetes mellitus): Plan: -ISS as needed (7) Hypothyroidism: Plan: Chronic hold Synthroid Plan Ppx - SCDs (Lovenox discontinued due to thrombocytopenia and anemia) Admission and Anticipated Discharge Date Admission Date: March 07, 2023 Results & Data Results & Data Vital Signs (Past 12 Hours) Vital Signs Temp Pulse Resp BP Pulse Ox O2 Del Method FiO2 03/16/23 12:00 55 03/16/23 12:00 75 03/16/23 11:03 75 24 91 55 03/16/23 10:00 99.5 F 75 24 91 03/16/23 10:00 135/55 L 03/16/23 09:30 99.5 F 75 24 92 03/16/23 09:00 99.5 F 75 24 93 03/16/23 09:00 135/55 L 03/16/23 08:30 99.5 F 75 24 93 03/16/23 08:00 99.7 F H 75 24 92 03/16/23 08:00 134/55 L 03/16/23 07:30 99.7 F H 75 24 92 03/16/23 07:00 99.7 F H 75 24 92 03/16/23 07:00 134/57 L 03/16/23 06:30 99.9 F H 75 24 90 03/16/23 08:00 Mechanical Vent 55 03/16/23 08:00 55 03/16/23 08:00 75 03/16/23 08:00 75 03/16/23 07:38 75 24 92 55 03/16/23 06:00 97.5 F L 75 24 141/60 H 94 03/16/23 05:00 97.7 F 76 24 139/60 93 03/16/23 04:02 99.5 F 83 20 85 L 03/16/23 04:02 120/60 03/16/23 04:00 99.5 F 83 0 L 115/64 96 03/16/23 04:00 55 03/16/23 04:14 78 24 91 60 03/16/23 03:00 98.2 F 74 30 H 92 03/16/23 03:00 132/59 L 03/16/23 02:00 99.3 F 73 29 H 135/60 91 03/16/23 01:00 99.1 F 72 25 H 139/64 93 PG Care Time/CCT Total # of Minutes Spent Total Time Spent with Patient: Total time spent is greater than 50% in coordination of care (as documented) at patient's floor/unit and/or counseling patient: Coding Level of Care Code 40274 SUB INP/OBS CARE 235MIN Diagnoses Septic shock A41.9; R65.21 CLL (chronic lymphocytic leukemia) C91.90 ANJUM (acute kidney injury) N17.9 COVID-19 U07.1 Acute diastolic CHF (congestive heart failure) I50.31 T2DM (type 2 diabetes mellitus) E11.9 Hypothyroidism E03.9
[2023-03-16] MEDS ORDERED: ONDANSETRON INJ 2 MG/ML 2 ML VIAL IV PRN (14:26)
[2023-03-16] MEDS ORDERED: ONDANSETRON 4 MG OD TAB SL PRN (14:26)
--- NOTE | 2023-03-16 15:28 | Discharge Summary ---
Date of Service March 16, 2023 Admission HPI Per Admitting Provider Alphonso Gray is a 67yo male with history of CLL, CKD, DM, HTN, HLP presenting to [facility] with SOB, cough and fever. Patient reports increased fatigue and shortness of breath since December 2022. He was diagnosed with Covid-19 infection on 02/20/23 and was treated with renally dosed Paxlovid. Patient with a sick family member at home with a URI. Patient follows with Dr. Chavarria [facility] as well as Dr. Heaton from [facility]. He has ongoing thrombocytopenia, neutropenia likely secondary to CLL treatment. He was previously on Venetoclax which is on indefinite hold. He was previously on acalabrutinib as well which is currently on hold given the recent spontaneous hematoma.He has been off medications for his CLL since 01/12/23. Per request of his Oncology team, he did see a specialist in [place] on 03/05/23 to discuss starting therapy. He reports that he was febrile in the clinic there so was sent for additional workup and treatment. He had a CXR performed which revealed PNA. He was given 1L of IVF as well as Ceftriaxone and Azithromycin. He has been taking antibiotics since 03/05/23. Patient with three days of worsening shortness of breath, increased work of sirena athing and cough. Febrile at 102.3 today with worsening symptoms which prompted him to come to the ER. Upon arrival to the ER patient afebrile, tachycardic at 105bpm, blood pressure stable. He was saturating 95% on room air. Blood sugar low on initial labs at 58 - administered dextrose 50mL Patient developed increased anxiety while in the ER. He was given Ativan 2mg IV with some improvement. Later developed increased work of breathing, tachypnea with RR in the mid-30's. Patient re-examined and had coarse breath sounds and bilateral crackles to mid- lung field. He was administered Lasix 40mg IV and placed on BiPAP. VBG obtained (results below). ER Course: NSS x 2L Dextrose 50mL Vancomycin 2250mg IV Azithromycin 500mg IV Cefepime 2gm IV Ativan 2mg IV Lasix 40mg IV Principal Diagnosis pt of sepsis from multifocal pneumonia influenced by CLL time of 1522 Discharge Exam pt pronounced at 1522 with absent breath sounds and no heart tones or pulse Discharge Data Allergies Allergy/AdvReac Type Severity Reaction Status Date / Time allopurinol Allergy Unknown Rash Verified 03/07/23 08:07 ibrutinib [From Imbruvica] Allergy Unknown LOOKED Verified 03/07/23 19:23 LIKE A LEOPARD SPOTTED ALL OVER NSAIDS (Non-Steroidal AdvReac Unknown DUE TO Verified 03/07/23 19:23 Anti-Inflamma DECREASED KIDNEY FUNCTION Consultations 03/07/23 19:06 ED Decision to Admit Stat 03/09/23 08:38 Consult Oncology Routine 03/09/23 13:44 Consult Infectious Diseases Routine 03/10/23 15:21 Consult Fleet Assistant Routine 03/12/23 13:24 Consult Nephrology Routine Ordered Studies 03/12/23 12:51 CT Abd and Pelvis [CT abd pelvis wo con] Urgent CT head/brain wo con Urgent 03/12/23 12:55 CT chest diagnostic wo con Stat Hospital Course (1) : pt of sepsis from multifocal pneumonia influenced by CLL (2) Septic shock: this immunocompromised patient, CLL with 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, presents with severe sepsis, septic shock from multifocal pneumonia pt was diagnosed with covid as outpt and treated with paxlovid 02/20/23 ->03/05 in clinic was ill with fever and started on antibiotics, admitted 03/07 admission [facility] covid and enterovirus positive Pt has not improved with maximal support, family did withdraw support,in the afternoon of 03/16/23 pt expectantly at 1522 , appreciate icu assistance in the matter Remainder of notation from earlier in hosptial stay Immunocompromised host, neupogen given now no longer neutropenic Infectious disease recommending On meropenem started 03/11. On vancomycin. started 03/07 Blood culture 1 out of 4 bottles growing staph. Likely contaminant. Repeat blood cultures ordered by ID. - on Azithromycin started 03/08 -On Voriconazole started 03/11 - follow up on fungal culture, Legionella, BD glucan CT chest 03/12 shows extensive multifocal consolidation. He has a history of cirrhosis and currently in anjum with ckd 3 , (3) CLL (chronic lymphocytic leukemia): Pt has had challenges with increase in LN enlargement and his CLL has been refractory to multiple different treatments -Patient with chronic anemia, thrombocytopenia. concern for pelvic/retroperitoneal bleed, did receive blood product support (4) ANJUM (acute kidney injury): on CKD stage III Per vegetable loader, declined transfer to a tertiary care center for continuous dialysis (5) COVID-19: Patient diagnosed with Covid on 02/20/23. He was treated with Paxlovid. -Maintain isolation precautions for now - patient immunocompromised with underlying malignancy - prolonged isolation (6) Acute diastolic CHF (congestive heart failure): patient appeared to be volume overloaded -Patient with minimal elevation of troponin. 28.5 --> 31.3. No acute ischemic changes on EKG.suspect demand ischemia - echo showed no wall motion abnormalities or depressed EF (7) T2DM (type 2 diabetes mellitus): - (8) Hypothyroidism: Total Time Total Time Spent Total Time Spent (In Minutes): greater than 30 minutes Discharge Plan Discharge Items Patient Disposition: Reason For Visit: PNA, NEUTROPENIA Follow-up/Referrals: Gabe Sorensen CRNP [Primary Care Provider] - Stand-Alone Forms: [employer] Medications and DC Order Prescriptions: No Action multivitamin Tablet 1 tab PO DAILY (DME) blood-glucose meter Misc See Rx Instructions .Route Qty: 1 0RF Rx Instructions: As directed (DME) lancets [Accu-Chek Softclix Lancets] Misc See Rx Instructions .Route Qty: 100 2RF Rx Instructions: As directed bid (DME) blood sugar diagnostic Strip See Rx Instructions .ROUTE .MEDSUPPLY Qty: 300 3RF Rx Instructions: test TID glimepiride 2 mg tablet 4 mg PO QAM Qty: 180 3RF levothyroxine 50 mcg tablet 50 mcg PO QAM Qty: 90 3RF atorvastatin 40 mg tablet 40 mg PO QAM Qty: 90 3RF sildenafil 25 mg tablet 25 mg PO DAILY PRN (Reason: sexual activity) Qty: 20 0RF Rx Instructions: administer 30 minutes to 4 hours before activity allopurinol 200 mg tablet 200 mg PO BID Qty: 180 2RF acetaminophen [Tylenol] 325 mg capsule 650 mg PO Q6H PRN (Reason: Fever Or Pain) hydrocortisone 2.5 % cream 1 applic TOPICAL BID PRN (Reason: Eczema) Rx Instructions: APPLY TO FACE AND EARS DIRECTED amoxicillin-pot clavulanate 875-125 mg tablet 1 tab PO Q12H Rx Instructions: Start Date 03/05/23 - End Date 03/07/23 magnesium 200 mg Tablet 400 mg PO DAILY Calquence 100 mg Capsule 0 mg PO DAILY Rx Instructions: per , this med is on hold. 100MG by mouth once daily oxycodone 5 mg tablet 5 mg PO Q4H PRN (Reason: Pain) Rx Instructions: q4h as needed for pain (4-6), may take 2 tabs for severe pain Admission Data Admit Date/Time: 03/07/23 19:55 Attending Provider: Shayan Forrest Admit Provider: Tasha Torre Primary Care Provider: Gabe Sorensen Other Providers: Tasha Torre ; Richard Smith ; Dona Whipple ; Juan Carlos Brady ; Kal Yoder Coding Level of Care Code 09129 INP/OBS DISCH >30 MIN Diagnoses R99 Septic shock A41.9; R65.21 CLL (chronic lymphocytic leukemia) C91.90 ANJUM (acute kidney injury) N17.9 COVID-19 U07.1 Acute diastolic CHF (congestive heart failure) I50.31 T2DM (type 2 diabetes mellitus) E11.9 Hypothyroidism E03.9
== END 2023-03-16 15:59 | disposition expired | DRG 870 ==
LOC: ED 16:41 → 1E 19:55 → SUATTDRO 19:55 → 1E 22:55